=== PATIENT | male | born 1975 | race Caucasian/White ===

== ENCOUNTER 2021-07-28 08:00 | Outpatient (CLI) | payer MEDICAID, OTHER ==
--- NOTE | 2021-08-15 17:19 | XRAY Report ---
PROCEDURE: Knee 2 View RT INDICATIONS: R KNEE PX TECHNIQUE: 2 views of the right knee(s) were acquired. COMPARISON: None. FINDINGS: Bones: There is a proximal fibular neck fracture. No suspicious bony lesions. Medial compartment ost eophytes and moderate medial compartment joint space loss. Soft tissues: No joint effusion. No suspicious soft tissue calcifications. IMPRESSION: 1. Subtle proximal fibular neck fracture. 2. 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 Reviewed by: Fly Damico MD on 08/15/2021 5:17 PM PDT Approved by: Fly Damico MD on 08/15/2021 5:17 PM PDT Station ID: [id number]
== END 2021-07-28 23:59 | disposition home or self-care (01) ==
LOC: DI.N 08:00
PROVIDERS: ATTEND Nurse Practitioner
DX: S82.491A Other fracture of shaft of right fibula, initial encounter for closed fracture (principal); M17.11 Unilateral primary osteoarthritis, right knee

== ENCOUNTER 2021-08-19 21:34 | Emergency (ER) | payer OTHER, MEDICAID ==
[2021-08-19 21:45] VITALS: BP 150/90
--- NOTE | 2021-08-19 22:07 | XRAY Report ---
PROCEDURE: Tib/Fib RT INDICATIONS: Trauma TECHNIQUE: 2 views of the tibia and fibula were acquired. COMPARISON: Knee plain films, 08/15/2021 FINDINGS: Bones: There is a mildly displaced fracture of the fibular neck again seen. No additional fractures are seen. The talar dome demonstrates an unremarkable appearance. Mild to moderate degenerative changes are seen. Irregularity seen of the posterior calcaneus. The meme ntar Soft tissues: Calcification can be seen along the distal Achilles, with Achilles thickening. IMPRESSION: Mildly displaced fibular neck fracture again seen. Likely Achilles partial tear versus tendinopathy. If it would be helpful for clinical management deci yusef making, please consider a dedicated, scheduled ankle MRI for further evaluation (assuming that t here is no contraindication). Reviewed by: Fred Hammer MD on 08/19/2021 9:05 PM RHONDA Approved by: Fred Hammer MD on 08/19/2021 9:05 PM RHONDA Station ID: [id number]
--- NOTE | 2021-08-19 23:31 | ED Physician Documentation ---
PD HPI LOWER EXT INJURY - Stated complaint Stated Complaint: RT LEG PX/INJ - Chief complaint Chief Complaint: Trauma Ext - History obtained from History obtained from: Patient - History of Present Illness PD HPI LOW EXT INJURY LOCATION: Right, Lower leg Type of injury: Twist Where injury occurred: Home Timing - onset: Today Timing - details: Abrupt onset Worsened by: Moving, Palpating Associated symptoms: Swelling - Additional information Additional information: Patient sustained right proximal fibular fracture five days ago when he stepped into a hole on his [place], twisting the RLE (the hole was there for placement of a fencepost). The fracture was diagnosed by outpatient xrays. Today he again fell and is concerned he worsened or aggravated the same injury, as the pain has increased since he fell today. Review of Systems Skin: reports: Reviewed and negative Musculoskeletal: reports: Extremity pain (RLE at fibular head), Pain with weight bearing Neurologic: denies: Focal weakness, Numbness PD PAST MEDICAL HISTORY - Past Medical History Past Medical History: No - Present Medications Home Medications: Ambulatory Orders Medication Instructions Recorded Confirmed Oxycodone HCl/Acetaminophen 1 tab PO Q6HR PRN #14 tablet 08/19/21 [Oxycodone-Acetaminophn 7.5-325] - Allergies Allergies/Adverse Reactions: Allergies Allergy/AdvReac Type Severity Reaction Status Date / Time No Known Drug Allergies Allergy Verified 08/19/21 21:41 - Living Situation Living Situation: reports: With spouse/s.o. Living Arrangement: reports: At home PD ED PE NORMAL - Vitals Vital signs reviewed: Yes - General General: Alert and oriented X 3, No acute distress, Well developed/nourished PD ED PE EXPANDED - Extremities Extremities: Tenderness (right lower leg over fibular head), Swelling (right knee, proximal right lower leg). No: Deformity Results - Vitals Vitals: Oxygen O2 Source Room air - Rads (name of study) right tib/fib xrays Radiology: Prelim report reviewed, See rad report PD MEDICAL DECISION MAKING - ED course Complexity details: reviewed old records (previous xrays (08/15/21) were reviewed for comparitive purposes), reviewed results, considered differential, d/w patient ED course: No change compared to previous xrays; the proximal fibular fracture is noted without change and no evidence of new injury. The radiologist's interpretation includes mention of findings that suggest possible distal distal tendinopathy vs partial achilles tear. Patient says he has h/o injury to the right distal achilles, and there is no tenderness nor c/o in proximity to this xray finding; this is very likely a coincident finding, but I did d/w patient and advised him to mention this finding when he has (scheduled) upcoming orthopedic appointment. I am prescribing a short course of short-acting opioid pain medication for this patient. I have reviewed the patients CREATIVE STRATEGIST and no concerning findings were noted. I have discussed that the opioids are for short term therapy only, and will not be refilled from the ED Departure - Departure Disposition: Home, Self Care Clinical Impression: Closed right fibular fracture Qualifiers: Encounter type: subsequent encounter Fibula location: proximal Fracture morphology: unspecified fracture morphology Fracture healing: with routine healing Qualified Code(s): S82.831D - Other fracture of upper and lower end of right fibula, subsequent encounter for closed fracture with routine healing Condition: Good Instructions: ED Fx Lower Ext Prescriptions: Oxycodone HCl/Acetaminophen [Oxycodone-Acetaminophn 7.5-325] 1 tab PO Q6HR PRN #14 tablet PRN Reason: Pain Comments: As we discussed, tonight's xrays do not show any changes compared to the xrays performed 08/15/21. The radiologist also sees evidence of "likely Achilles partial tear versus tendinopathy". Continue to use the crutches to minimize weight-bearing as well as the knee immobilizer. A prescription for percocet has been electronically submitted to [facility] in [place]. I am prescribing a short course of narcotic pain medication for you. These are potentially dangerous and addictive medications that should be used carefully. These medications may constipate you. Take an [id number]-[id number] stool softener (docusate) twice daily with plenty of water while taking these medications. If you go 24 hours without a bowel movement, take [id number]-[id number]-[id number] miralax, per package instructions. Do not drink or drive while taking these medications. If you received narcotic or sedating medications while in the emergency department, do not drive for 24 hours. Store this medication in a safe, secure place and out of reach of children. It is a violation of federal law to give or sell this medication to another person or to use in a manner other than prescribed. The ED will not refill narcotic prescriptions, including prescriptions lost or stolen. To dispose of unwanted medications: 1. [facility] at [address] in [place] has a medication drop box. They accept prescription medications (in pill form) Sunday through Sunday 9:00 a.m. to 5:00 p.m. 2. The [facility] [place] [employer] accepts prescription medications (in pill form only) for disposal year round. Call for more information. 3. Contact the [facility] for the next [facility] sponsored prescription drug collection event. , [phone], or [phone]; Discharge Date/Time: 08/19/21 23:59
[2021-08-19] MEDS ORDERED: oxyCODONE 5 MG TABLET PO STA (23:41)
== END 2021-08-19 23:59 | disposition home or self-care (01) ==
LOC: ED 21:34
DX: S82.831D Other fracture of upper and lower end of right fibula, subsequent encounter for closed fracture with routine healing (principal); W17.2XXD Fall into hole, subsequent encounter
CPT/HCPCS: 99282; 99283

== ENCOUNTER 2021-08-26 08:00 | Outpatient (CLI) | payer OTHER, MEDICAID ==
--- NOTE | 2021-08-26 13:31 | XRAY Report ---
PROCEDURE: Tib/Fib RT INDICATIONS: FIBULA FX TECHNIQUE: 2 views of the tibia and fibula were acquired. COMPARISON: 08/19/2021 FINDINGS: Bones: Minimally displaced fracture of the fibular neck. No other suspicious bony lesions. Soft tissues: No suspicious soft tissue calcifications or masses. IMPRESSION: Minimally displaced fracture of the fibula neck with no change compared to prior x-ray. Reviewed by: Osmany Ag on 08/26/2021 1:30 PM PDT Approved by: Osmany Ag on 08/26/2021 1:30 PM PDT Station ID: [id number]
== END 2021-08-26 23:59 | disposition home or self-care (01) ==
LOC: DI.WOS 08:00
PROVIDERS: ATTEND Physician Assistant
DX: S89.201A Unspecified physeal fracture of upper end of right fibula, initial encounter for closed fracture (principal)

== ENCOUNTER 2021-09-10 05:17 | Outpatient (CLI) | payer OTHER, MEDICAID | END 2021-09-10 05:18 | disposition critical access hospital (66) | LOC: EMS 05:17 | DX: M54.50 Low back pain, unspecified (principal); M79.604 Pain in right leg | CPT/HCPCS: A0425; A0429 ==

== ENCOUNTER 2021-09-10 05:36 | Emergency (ER) | payer OTHER, MEDICAID ==
--- NOTE | 2021-09-10 05:53 | ED Physician Documentation ---
PD HPI BACK PAIN - Stated complaint Stated Complaint: BACK PX - Chief complaint Chief Complaint: Back Pain - History obtained from History obtained from: Patient, EMS - History of Present Illness Timing - onset: Today Timing - details: Gradual onset Pain level now: 8 Location: Lower, Right Quality: Pain, Spasm Associated symptoms: No: Fever, Weakness, Numbness, Incontinent of urine, Unable to urinate, Hematuria, Incontinent of stool Improves with: Nothing Worsened by: Movement Similar symptoms before: Diagnosis (sciatica) - Additional information Additional information: BIBA for sciatic back pain. Patient says he has had this before although this is more severe than usual. The pain is right low back and it radiates down the RLE, "shooting all the way down my leg" (per patient). Patient sustained injury to RLE last month with xray performed 08/15/21 showing "subtle proximal fibular neck fracture" (per radiologist's reading). He was subsequently evaluated in this ED (by me) for reinjury of the RLE, xrays did not show any significant change compared to previous xrays. I also note that patient had outpatient xrays again on 08/26/21 which again showed no significant change versus previous xrays (still noting minimally displaced fracture of the fibula neck). Review of Systems Constitutional: denies: Fever, Chills, Sweats Cardiac: reports: Reviewed and negative Respiratory: reports: Reviewed and negative GI: reports: Nausea. denies: Abdominal Pain, Vomiting : denies: Dysuria, Frequency, Unable to Void, Incontinent Skin: denies: Rash Musculoskeletal: reports: Back pain Neurologic: denies: Focal weakness, Numbness PD PAST MEDICAL HISTORY - Past Medical History Past Medical History: No - Past Surgical History Past Surgical History: Yes - Present Medications Home Medications: Ambulatory Orders Medication Instructions Recorded Confirmed Oxycodone HCl/Acetaminophen 1 tab PO Q6HR PRN #14 tablet 08/19/21 [Oxycodone-Acetaminophn 7.5-325] Pregabalin [Lyrica] 200 mg ORAL TID 09/10/21 09/10/21 - Allergies Allergies/Adverse Reactions: Allergies Allergy/AdvReac Type Severity Reaction Status Date / Time No Known Drug Allergies Allergy Verified 08/19/21 21:41 - Social History Does the pt smoke?: No Smoking Status: Never smoker Does the pt drink ETOH?: No Does the pt have substance abuse?: No - Immunizations Immunizations are current?: Yes - POLST Patient has POLST: No PD ED PE NORMAL - Vitals Vital signs reviewed: Yes - General General: Alert and oriented X 3, Well developed/nourished, Other (appears to be uncomfortable, in moderate painful distress) - Abdomen Abdomen: Soft, Non tender - Back Back: No CVA TTP, No spinal TTP - Derm Derm: Normal color, Warm and dry, No rash - Extremities Extremities: No edema Results - Vitals Vitals: Oxygen O2 Source Room air - Labs Labs: Laboratory Tests 09/10/21 09/10/21 09/10/21 09:55 09:55 10:01 WBC 11.2 H RBC 5.05 Hgb 12.9 L Hct 38.4 L MCV 76.0 L MCH 25.5 L MCHC 33.6 RDW 18.3 H Plt Count 521 H MPV 9.0 Neut # (Auto) 8.4 H Lymph # (Auto) 1.7 [place] # (Auto) 1.0 Eos # (Auto) 0.0 Baso # (Auto) 0.0 Absolute Nucleated RBC 0.00 Nucleated RBC % 0.0 Sodium 134 L Potassium 3.8 Chloride 94 L Carbon Dioxide 21 Anion Gap 19.0 H BUN 15 Creatinine 1.0 Estimated GFR (MDRD) 80 L Glucose 130 H Lactic Acid 2.8 H Calcium 9.2 Urine Color Urine Clarity Urine pH Ur Specific [place] Urine Protein Urine Glucose (UA) Urine Ketones Urine Occult Blood Urine Nitrite Urine Bilirubin Urine Urobilinogen Ur Leukocyte Esterase Urine RBC Urine WBC Ur Squamous Epith Cells Urine Bacteria Urine Mucus Ur Microscopic Review Urine Culture Comments 09/10/21 11:47 WBC RBC Hgb Hct MCV MCH MCHC RDW Plt Count MPV Neut # (Auto) Lymph # (Auto) [place] # (Auto) Eos # (Auto) Baso # (Auto) Absolute Nucleated RBC Nucleated RBC % Sodium Potassium Chloride Carbon Dioxide Anion Gap BUN Creatinine Estimated GFR (MDRD) Glucose Lactic Acid Calcium Urine Color DARK YELLOW Urine Clarity CLEAR Urine pH 6.0 Ur Specific [place] >=1.030 H Urine Protein 100 H Urine Glucose (UA) NEGATIVE Urine Ketones >=80 H Urine Occult Blood MODERATE H Urine Nitrite NEGATIVE Urine Bilirubin NEGATIVE Urine Urobilinogen 0.2 (NORMAL) Ur Leukocyte Esterase NEGATIVE Urine RBC 0-5 Urine WBC 0-3 Ur Squamous Epith Cells FEW Squamous Urine Bacteria Few Urine Mucus Moderate Strands Ur Microscopic Review INDICATED Urine Culture Comments NOT INDICATED PD MEDICAL DECISION MAKING - ED course Complexity details: reviewed old records, reviewed results, re-evaluated patient, considered differential, d/w patient ED course: given 2mg IM dilaudid and 5mg po flexeril for sciatica. Denies recent injury to back (had injury to RLE last month). On reevaluation, he says his pain is worse and thus I ordered another 2mg IM dilaudid as well as 5mg PO valium (for skeletal muscle relaxant properties). Care of patient turned over to oncoming ED physician pending reevaluation , can discharge when he is well enough to go home. Departure - Departure Disposition: 02 Transfer Acute Care Hosp Clinical Impression: Intractable low back pain Urinary incontinence Qualifiers: Urinary Incontinence type: unspecified incontinence Qualified Code(s): R32 - Unspecified urinary incontinence Condition: Stable Discharge Date/Time: 09/10/21 12:28
[2021-09-10] MEDS ORDERED: HYDROmorphone 1 MG/ML CARPUJECT IM STA ×2 (06:18→07:17)
[2021-09-10] MEDS ORDERED: CYCLOBENZAPRINE 10 MG TABLET PO STA (06:18)
[2021-09-10] MEDS ORDERED: diazePAM 5 MG TABLET PO STA (07:18)
[2021-09-10] MEDS ORDERED: KETOROLAC 60 MG/2 ML VIAL IM STA (07:18)
[2021-09-10] MEDS ORDERED: ONDANSETRON ODT 4 MG TABLET TL STA (07:46)
[2021-09-10] MEDS ORDERED: DEXAMETHASONE 10 MG/ML VIAL IVP STA (09:44)
[2021-09-10] MEDS ORDERED: HYDROmorphone 1 MG/ML CARPUJECT IVP STA ×2 (09:51→11:36)
[2021-09-10] MEDS ORDERED: SODIUM CHLORIDE 0.9% 500 ML IV STA (09:51)
--- NOTE | 2021-09-10 09:55 | ED Physician Documentation ---
ED Addendum - Addendum Addendum: 09/10/21 07:30 Pt care turned over to me from Dr. Mooney. History of chronic low back pain Has worsened since this morning. Dr. Mooney has given patient 2 rounds of IM medications. Patient did slide out of his bed which Dr. Mooney was aware of. No head injury or LOC. Patient is requesting an x-ray of his back as he has hardware in place. X-ray ordered. 09/10/21 09:52 Called to the bedside to evaluate the patient as he had an episode of urinary incontinence. Patient had gone to the bathroom about an hour ago. He was just laying in the bed and did not realize he had to urinate when he had urinated on himself. With Alfreda (RN) and Grupo (RN) as chaperones, I did a digital rectal exam. Patient had normal Rectal sensation and normal rectal tone. Pedal pulses are intact. Requested IV with labs and IV medications. MRI is not available this weekend. Patient has not had any recent injections into his back. He denies IV drug use, fevers, known cancer. He does report that the pain is more to the right side of his back and does shoot into the right leg. He does have a history of kidney stones. CT abdomen and pelvis without contrast ordered to evaluate for stones as cause of his pain. 09/10/21 1130: CT abdomen and pelvis is without acute findings. Reviewed lesions in liver requiring nonemergent follow up Patient understands. Discussed need for MRI Given continued pain and that patient will need transfer to another facility as we have no MRI until Sunday.Patient is agreeable to this. Pt continues to report continued pain which is not changed after multiple rounds of IM/IV Dilaudid. CT abdomen and pelvis is negative for ureter stone.Given episode of incontinence and intractable pain, do feel that MRI is warranted. Discussed with [facility] emergency physician, Dr. Villagomez who graciously agrees to accept the patient in transfer for MRI.Patient is agreeable to this plan. Departure - Departure Disposition: 02 Transfer Acute Care Hosp Clinical Impression: Intractable low back pain Urinary incontinence Qualifiers: Urinary Incontinence type: unspecified incontinence Qualified Code(s): R32 - Unspecified urinary incontinence Condition: Stable
--- NOTE | 2021-09-10 10:18 | XRAY Report ---
PROCEDURE: Lumbar Spine 2 View INDICATIONS: fall/low back pain/history of surg TECHNIQUE: 2 views of the lumbar spine were acquired. COMPARISON: None. FINDINGS: Bones: Wedge-shaped T12 compression fracture noted with 75% anterior height loss and no significant r etropulsed fracture fragment. Lower lumbar spine instrumentation includes rods and screw instrumentat ion supporting discectomy and fusion at L3-4, L4-5 and L5-S1. Soft tissues: Overlying bowel gas pattern is normal. No suspicious soft tissue calcifications. IMPRESSION: T12 compression fracture, uncertain age. Lower lumbar spine discectomy and fusion with instrumentation. No evidence of hardware failure or loo sening. Reviewed by: Jitendra Aden MD on 09/10/2021 9:17 AM RHONDA Approved by: Jitendra Aden MD on 09/10/2021 9:17 AM RHONDA Station ID: [id number]
[2021-09-10 10:19] LABS: BASOPHILS % (AUTO) 0.3 %; EOSINOPHILS % (AUTO) 0.1 %; HCT - HEMATOCRIT 38.4 % (42.0-52.0); HGB - HEMOGLOBIN 12.9 g/dL (14.0-18.0); LYMPHOCYTES # (AUTO) 1.7 10^3/uL (1.5-3.5); LYMPHOCYTES % (AUTO) 15.3 %; MEAN CORPUSCULAR HEMOGLOBIN 25.5 pg (27.0-31.0); MEAN CORPUSCULAR HGB CONC 33.6 g/dL (32.0-36.0); MONOCYTES % (AUTO) 8.8 %; NEUTROPHILS # (AUTO) 8.4 10^3/uL (1.5-6.6); NEUTROPHILS % (AUTO) 74.9 %; PLT - PLATELET COUNT 521 10^3/uL (130-450); RED BLOOD COUNT 5.05 10^6/uL (4.70-6.10); RED CELL DISTRIBUTION WIDTH 18.3 % (12.0-15.0); WHITE BLOOD COUNT 11.2 x10^3/uL (4.8-10.8)
[2021-09-10 10:26] LABS: CALCIUM 9.2 mg/dL (8.5-10.3); POTASSIUM 3.8 mmol/L (3.5-5.0)
--- NOTE | 2021-09-10 11:19 | CT Report ---
PROCEDURE: CT abdomen pelvis without contrast INDICATIONS: R sided back pain TECHNIQUE: Noncontrast 5 mm thick sections acquired from the diaphragms to the symphysis. 5 mm jonathan nal and sagittal reformats were then performed. For radiation dose reduction, the following was used : automated exposure control, adjustment of mA and/or kV according to patient size. COMPARISON: None. FINDINGS: Lower thorax: The lung bases are clear. Heart size normal. No hiatal hernia. Liver: Several low density hepatic lesions noted. The lesion in the left hepatic lobe measures 1.6 cm in diameter. Biliary system: Calculi noted layering dependently in the lumen of the gallbladder. No pericholecysti c inflammatory change present. Pancreas: Unremarkable without mass or inflammation evident. Spleen: Normal in size and density. Adrenals: Arising from the left adrenal gland, there is an 3.4 cm low-density nodule measuring 15 Aislinn nsfield units associated with a small focus of calcification which is well-defined. Reproductive system: Unremarkable as visualized. Urinary system: Normal renal size and attenuation. Nonobstructing subcentimeter right renal calculus present. No hydronephrosis bilaterally. Gastrointestinal system: Prior gastric surgery noted. No evidence of bowel obstruction. Appendix: No findings to suggest acute appendicitis. Peritoneal spaces: No mesenteric or retroperitoneal adenopathy. No free air. No free fluid. Vasculature: The IVC, aorta and iliac vasculature are unremarkable. Musculoskeletal: Lower lumbar spine decompressive laminectomy, posterior lateral and interbody fusion , and posterior jules and screw instrumentation in good position. Bilateral inguinal hernias containing fat without bowel involvement IMPRESSION: 1. No acute noncontrast CT findings in the abdomen and pelvis. 2. Low density lesions in the liver. While these possibly could reflect cysts or hemangioma, follow u p nonemergent hepatic protocol CT or MR could further evaluate. 3. Probable 3.4 cm left adrenal adenoma 4. Cholelithiasis without CT evidence of acute cholecystitis Reviewed by: Jitendra Aden MD on 09/10/2021 10:18 AM RHONDA Approved by: Jitendra Aden MD on 09/10/2021 10:18 AM RHONDA Station ID: [id number]
[2021-09-10 12:09] LABS: GLUCOSE, URINE (UA) NEGATIVE (NEGATIVE); KETONES,URINE (UA) >=80 mg/dL (NEGATIVE); LEUKOCYTE ESTERASE, URINE NEGATIVE (NEGATIVE); NITRITE,URINE NEGATIVE (NEGATIVE); OCCULT BLOOD,URINE MODERATE (NEGATIVE); PROTEIN,URINE 100 mg/dL (NEGATIVE); UROBILINOGEN,URINE 0.2 (NORMAL) E.U./dL (NORMAL)
[2021-09-10 12:10] LABS: CLARITY,URINE CLEAR (CLEAR)
[2021-09-10 12:14] LABS: BILIRUBIN,URINE NEGATIVE (NEGATIVE); ICTOTEST,URINE NEGATIVE
[2021-09-10 12:18] VITALS: BP 134/94
[2021-09-10 12:26] LABS: BACTERIA,URINE Few /HPF (None Seen); MUCUS,URINE Moderate Strands; RBC,URINE 0-5 /HPF (0-5); SQUAMOUS EPITHELIAL CELL,UR FEW Squamous (<= Few); WBC,URINE 0-3 /HPF (0-3)
== END 2021-09-10 12:28 | disposition short-term general hospital (02) ==
LOC: EDUNIT# → ED 05:36
DX: M54.50 Low back pain, unspecified (principal); R32 Unspecified urinary incontinence
CPT/HCPCS: 36415; 72100; 74176; 80048; 81001; 83605; 85025; 96372; 96374; 96375; 96376; 99283; 99285; A9270; J1170; Q0162; 81003; 87086

== ENCOUNTER 2021-09-10 12:22 | Outpatient (CLI) | payer OTHER, MEDICAID | END 2021-09-10 12:23 | disposition short-term general hospital (02) | LOC: EMS 12:22 | PROVIDERS: ATTEND Emergency Medicine | DX: M54.50 Low back pain, unspecified (principal) | CPT/HCPCS: A0425; A0428 ==

== ENCOUNTER 2022-01-31 17:31 | Emergency (ER) | payer OTHER, MEDICAID ==
[2022-01-31] MEDS ORDERED: KETOROLAC 60 MG/2 ML VIAL IM STA (21:18)
[2022-01-31] MEDS ORDERED: HYDROcod/ACETAM 5/325 MG TABLET PO STA (21:18)
[2022-01-31] MEDS ORDERED: CHERRY SYRUP 10 ML UDC PO ONE (21:19)
[2022-01-31] MEDS ORDERED: DEXAMETHASONE 10 MG/ML VIAL PO STA (21:19)
[2022-01-31] MEDS ORDERED: CYCLOBENZAPRINE 10 MG TABLET PO STA (21:19)
--- NOTE | 2022-01-31 21:19 | ED Physician Documentation ---
PD HPI BACK PAIN - Stated complaint Stated Complaint: LOWER BACK PAIN - Chief complaint Chief Complaint: Back Pain - History obtained from History obtained from: Patient - History of Present Illness Timing - onset: Today Timing - details: Gradual onset Pain level max: 5 Pain level now: 4 Quality: Pain, Spasm Associated symptoms: No: Fever, Weakness, Numbness, Incontinent of urine, Unable to urinate, Hematuria, Incontinent of stool Worsened by: Movement Contributing factors: Twisting. No: Lifting, Trauma, Anticoagulated, Cancer, IVDA - Additional information Additional information: 46-year-old male presents to the emergency department stating that he slipped in mud earlier today and "tweaked his back". He states he has a history of chronic back problems and sciatica. The pain is radiating down both legs. No loss of bowel or bladder control. No weakness, numbness. Worse with movement, better with rest. He states the muscle relaxants have helped in the past. Review of Systems Constitutional: denies: Fever, Chills Respiratory: denies: Cough GI: denies: Vomiting, Diarrhea Skin: denies: Rash Musculoskeletal: denies: Neck pain Neurologic: denies: Focal weakness, Numbness, Headache PD PAST MEDICAL HISTORY - Past Medical History Past Medical History: Yes Musculoskeletal: Chronic back pain - Past Surgical History Past Surgical History: Yes Ortho: Spine surgery - Present Medications Home Medications: Ambulatory Orders Medication Instructions Recorded Confirmed Oxycodone HCl/Acetaminophen 1 tab PO Q6HR PRN #14 tablet 08/19/21 [Oxycodone-Acetaminophn 7.5-325] Pregabalin [Lyrica] 200 mg ORAL TID 09/10/21 09/10/21 Cyclobenzaprine [Flexeril] 10 mg PO TID PRN #20 tablet 01/31/22 HYDROcod/ACETAM 5/325 [[place] 5/325] 1 - 2 ea PO Q6H PRN #14 tablet 01/31/22 Meloxicam [Mobic] 7.5 mg PO BID PRN #20 tablet 01/31/22 - Allergies Allergies/Adverse Reactions: Allergies Allergy/AdvReac Type Severity Reaction Status Date / Time No Known Drug Allergies Allergy Verified 01/31/22 18:08 - Social History Does the pt smoke?: No Smoking Status: Never smoker Does the pt drink ETOH?: No Does the pt have substance abuse?: No - Immunizations Immunizations are current?: Yes - POLST Patient has POLST: No PD ED PE NORMAL - Vitals Vital signs reviewed: Yes - General General: Alert and oriented X 3, No acute distress, Well developed/nourished - HEENT HEENT: PERRL, Moist mucous membranes - Neck Neck: Supple, no meningeal sign - Cardiac Cardiac: RRR, Strong equal pulses - Respiratory Respiratory: No respiratory distress, Clear bilaterally - Abdomen Abdomen: Normal bowel sounds, Soft, Non tender, Non distended - Back Back: No spinal TTP (No midline tenderness to palpation or percussion. No step- off or deformity. Mild paraspinal spasm bilateral lower lumbar) - Derm Derm: Warm and dry - Extremities Extremities: Other (Normal bilateral lower extremity patellar and ankle jerk reflexes. Normal great toe extension bilaterally. no saddle anesthesia) - Neuro Neuro: Alert and oriented X 3 - Psych Psych: Normal mood, Normal affect Results - Vitals Vitals: Oxygen O2 Source Room air PD MEDICAL DECISION MAKING - ED course Complexity details: re-evaluated patient, considered differential (No cauda equina, no spinal epidural abscess, no fracture, no aortic dissection or evidence of aneursym rupture), d/w patient, d/w family ED course: Patient with acute on chronic back pain. No indication for emergent imaging. No evidence of cauda equina, epidural abscess. Pain well controlled. Will place on muscle relaxants for home. We will have him follow-up with his doctor for further care. Ambulating well. Patient counseled regarding signs and symptoms for which I believe and urgent re-evaluation would be necessary. Patient with good understanding of and agreement to plan and is comfortable going home at this time This document was made in part using voice recognition software. While efforts are made to proofread this document, sound alike and grammatical errors may occur. Departure - Departure Disposition: 01 Home, Self Care Clinical Impression: Sciatica Qualifiers: Laterality: bilateral Qualified Code(s): M54.31 - Sciatica, right side Condition: Good Instructions: ED Sciatica Follow-Up: your,doctor in 1 week [Other] Prescriptions: Cyclobenzaprine [Flexeril] 10 mg PO TID PRN #20 tablet PRN Reason: Spasms Meloxicam [Mobic] 7.5 mg PO BID PRN #20 tablet PRN Reason: Pain HYDROcod/ACETAM 5/325 [[place] 5/325] 1 - 2 ea PO Q6H PRN #14 tablet PRN Reason: Pain Comments: Your prescriptions were sent to [facility] in [place]. Please follow-up with your doctor for further care. Please return if you worsen. I am prescribing a short course of narcotic pain medication for you. These are potentially dangerous and addictive medications that should be used carefully. These medications may constipate you. Take an fzun-rnt-dhovgzj stool softener (docusate) twice daily with plenty of water while taking these medications. If you go 24 hours without a bowel movement, take aovq-xlo-gsrgwxr miralax, per package instructions. Do not drink or drive while taking these medications. If you received narcotic or sedating medications while in the emergency department, do not drive for 24 hours. Store this medication in a safe, secure place and out of reach of children. It is a violation of federal law to give or sell this medication to another person or to use in a manner other than prescribed. The ED will not refill narcotic prescriptions, including prescriptions lost or stolen. To dispose of unwanted medications: 1. [facility] [address] in [place] has a medication drop box. They accept prescription medications (in pill form) Sunday through Sunday 9:00 a.m. to 5:00 p.m. 2. The [facility] [employer] [facility] accepts prescription medications (in pill form only) for disposal year round. Call for more information. 3. Contact the [facility] for the next [facility] sponsored prescription drug collection event. , [phone], or [phone]; Discharge Date/Time: 01/31/22 22:16
[2022-01-31 22:17] VITALS: BP 133/97
== END 2022-01-31 22:16 | disposition home or self-care (01) ==
LOC: ED 17:31
DX: M54.41 Lumbago with sciatica, right side (principal)
CPT/HCPCS: 96372; 99283; 99284; A9270

== ENCOUNTER 2022-03-05 23:05 | Outpatient (CLI) | payer OTHER, MEDICAID | END 2022-03-05 23:06 | disposition critical access hospital (66) | LOC: EMS 23:05 | DX: M54.9 Dorsalgia, unspecified (principal); M79.605 Pain in left leg; M79.604 Pain in right leg; R25.2 Cramp and spasm | CPT/HCPCS: A0425; A0429 ==

== ENCOUNTER 2022-03-05 23:30 | Emergency (ER) | payer OTHER, MEDICAID ==
[2022-03-05] MEDS ORDERED: methocarbamoL 500 MG TABLET PO STA (23:54)
[2022-03-05] MEDS ORDERED: HYDROmorphone 1 MG/ML CARPUJECT IM STA (23:54)
--- NOTE | 2022-03-06 00:03 | ED Physician Documentation ---
History of Present Illness - Stated complaint Stated Complaint: BACK SPASMS - Chief complaint Chief Complaint: Back Pain - History obtained from History obtained from: Patient, EMS - Additonal information Additional information: 46yM with chronic back pain p/w back spasm this evening. Patient states he has been physically active and "overdid it". He experienced sudden onset spasm this evening in left lower back, fell to the floor, and was unable to get up the four stairs to his house so called ems. pain is sharp, located in the lower back and left buttock, radiating down the leg. denies numbness or weakness, but can't walk due to the pain. denies saddle anesthesia or urinary/fecal incontinence. note he had MRI in august to eval for cord compression that was negative but did show disc herniation. Review of Systems : denies: Incontinent Musculoskeletal: reports: Back pain Neurologic: denies: Focal weakness, Numbness PD PAST MEDICAL HISTORY - Past Medical History Past Medical History: Yes Musculoskeletal: Chronic back pain - Past Surgical History Past Surgical History: Yes General: Gastric surgery Ortho: Spine surgery, Other - Present Medications Home Medications: Ambulatory Orders Medication Instructions Recorded Confirmed Pregabalin [Lyrica] 200 mg ORAL TID 09/10/21 03/05/22 Acetaminophen [Tylenol] 1,000 mg PO Q8HR PRN 03/05/22 03/05/22 - Allergies Allergies/Adverse Reactions: Allergies Allergy/AdvReac Type Severity Reaction Status Date / Time No Known Drug Allergies Allergy Verified 03/05/22 23:37 - Social History Does the pt smoke?: No Smoking Status: Never smoker Does the pt drink ETOH?: No Does the pt have substance abuse?: No - Immunizations Immunizations are current?: Yes - POLST Patient has POLST: No PD ED PE NORMAL - Vitals Vital signs reviewed: Yes - General General: Alert and oriented X 3, No acute distress, Well developed/nourished - HEENT HEENT: Atraumatic, PERRL, EOMI - Neck Neck: No bony TTP - Back Back: No spinal TTP, Other (L gluteal region ttp) - Derm Derm: Normal color, Warm and dry, No rash Results - Vitals Vitals: Vital Signs - 24 hr 03/05/22 23:40 Temperature 36.8 C Heart Rate 96 Respiratory 16 Rate Blood Pressure 126/102 H O2 Saturation 98 Oxygen O2 Source Room air PD Medical Decision Making - ED course ED course: 46yM p/w acute on chronic low back pain that appears muscular in origin on exam. sciatica is less likely given he is not experiencing the tingling/jolt/electric sensation. doubt cord compression or epidural abscess given low risk factors. plan to treat symptomatically. discussed symptomatic care at home. plan to f/u with orthopedist and pcp for pain management. return precautions given.
[2022-03-06 00:42] VITALS: BP 116/84
== END 2022-03-06 00:58 | disposition home or self-care (01) ==
LOC: EDUNIT# → ED 23:30
DX: M54.50 Low back pain, unspecified (principal); G89.29 Other chronic pain
CPT/HCPCS: 99281; 99283; A9270; J1170

== ENCOUNTER 2022-06-04 20:00 | Outpatient (CLI) | payer OTHER, MEDICAID | END 2022-06-04 20:01 | disposition short-term general hospital (02) | LOC: EMS 20:00 | DX: M54.9 Dorsalgia, unspecified (principal); R25.2 Cramp and spasm; R53.1 Weakness | CPT/HCPCS: A0425; A0429 ==

== ENCOUNTER 2022-07-19 17:14 | Emergency (ER) | payer OTHER, MEDICAID ==
[2022-07-19 17:23] VITALS: BP 122/90
--- NOTE | 2022-07-19 17:31 | ED Physician Documentation ---
PD HPI BACK PAIN - Stated complaint Stated Complaint: BACK PX - Chief complaint Chief Complaint: Back Pain - History obtained from History obtained from: Patient - Additional information Additional information: 47-year-old gentleman with chronic back pain, has been worse over the last 2 months, has had an MRI and has an appointment for surgical intervention in about a month and a half. He presents requesting pain medication as his pain is out of control. Its in the mid to low lumbar spine with numbness in the left foot. He has a chronic foot drop in the left foot. There is no incontinence or saddle anesthesia. No fevers. PD PAST MEDICAL HISTORY - Past Medical History Musculoskeletal: Chronic back pain - Past Surgical History Past Surgical History: Yes General: Gastric surgery Ortho: Spine surgery, Other - Present Medications Home Medications: Ambulatory Orders Medication Instructions Recorded Confirmed Pregabalin [Lyrica] 200 mg ORAL TID 09/10/21 03/05/22 Acetaminophen [Tylenol] 1,000 mg PO Q8HR PRN 03/05/22 03/05/22 - Allergies Allergies/Adverse Reactions: Allergies Allergy/AdvReac Type Severity Reaction Status Date / Time No Known Drug Allergies Allergy Verified 07/19/22 17:22 - Social History Does the pt smoke?: No Smoking Status: Never smoker Does the pt drink ETOH?: No Does the pt have substance abuse?: No - Immunizations Immunizations are current?: Yes - POLST Patient has POLST: No PD ED PE NORMAL - Vitals Vital signs reviewed: Yes - General General: Alert and oriented X 3, No acute distress - Derm Derm: Normal color, Warm and dry - Extremities Extremities: Other (Patellar reflexes not checked as he has a right knee replacement. He has grossly normal sensation throughout the lower extremities. Grossly normal gait.) - Neuro Neuro: Alert and oriented X 3, Normal speech - Psych Psych: Normal mood, Normal affect Results - Vitals Vitals: Vital Signs - 24 hr 07/19/22 17:17 Temperature 36.1 C L Heart Rate 73 Respiratory 17 Rate Blood Pressure 122/90 H O2 Saturation 100 Oxygen O2 Source Room air PD Medical Decision Making - ED course ED course: 47-year-old gentleman with an exacerbation of chronic low back pain. Asked him when his last prescription was for narcotics, this was after reviewing his [employer] and [employer] forms. He said it had been a couple of weeks. I showed him his [employer] and [employer] forms. His last prescription for oxycodone was from Dr. Wright at [facility] 4 days ago. He had 16 emergency department visits in the last 12 months, a total of 1457 controlled substances in that timeframe from 19 unique prescribers and 21 opioid prescriptions. I discussed with him that [employer] bill the fact that he lied to me when his last prescription was in this pattern we would not be able to help him with pain management and he is seeing his primary care physician tomorrow. He appears comfortable. There is nothing in the history or physical to suggest cauda equina, spinal epidural abscess, vascular issue. Departure - Departure Disposition: 01 Home, Self Care Clinical Impression: Acute exacerbation of chronic low back pain Condition: Good Record reviewed to determine appropriate education?: Yes Instructions: ED Neck Back Pain General Comments: Follow-up with your primary care tomorrow as scheduled for pain management. Unfortunately, as discussed based on your frequent emergency department use, 16 visits in the last 12 months, the fact that I asked you when your last prescrip tion for narcotics was and you told me it had been 2 weeks, it has been 4 days since your last prescription from [facility] was filled for oxycodone, and concern for multi prescriber and frequent narcotic fills including a total of 1457 controlled substances in the last 12 months from 19 unique prescribers, this emergency department cannot help you with pain management.
--- OUTSIDE RECORDS SUMMARY | 2022-07-19 17:43 | EXTERNAL MEDICAL SUMMARY RPT | Continuity of Care Document ---
Author Name Unknown Address [address] [place] [address] Phone Organization [facility] Address [address] [place] [address] Phone Care Team Providers Care Framing Inspector Name Role Phone Alexander Bolivar Unavailable Unavailable Allergies and Intolerances date description facility type (no date) Mild [facility] (unknown) (no date) No Known Drug Allergies [facility] ( unknown) (no date) milk [facility] (unknown) Medications date description facility 2022-06-07 00:00 Oxycodone-Acetaminophen [facility] 2022-07-06 00:00 Oxycodone-Acetaminophen [facility] 2022-06-29 00:00 Oxycodone [facility] 2022-07-15 00:00 Oxycodone [facility] 2022-06-07 00:00 Lidocaine [facility] 2022-06-14 00:00 Lidocaine [facility] 2022-06-07 00:00 Methocarbamol [facility] 2022-07-03 00:00 Ferrous Sulfate [facility] 2022-06-07 00:00 Prednisone [facility] 2022-07-03 00:00 Tizanidine [facility] 2022-06-14 00:00 Duloxetine [facility] 2022-05-27 00:00 [facility]isolone [facility] 2022-06-04 00:00 Methylprednisolone [facility] 2022-07-15 00:00 [facility]prednisolone [facility] 2022-06-14 00:00 Tramadol [facility] 2022-07-03 00:00 Tramadol [facility] 2022-05-27 00:00 Hydrocodone-Acetaminophen [facility] 2022-06-04 00:00 Hydrocodone-Acetaminophen [facility] Problems date description facility 2022-05-27 00:00 Acute back pain with radiculopa thy [facility] 2022-06-04 00:00 Strain of lumbar region [facility] 2022-06-07 00:00 Central stenosis of spinal bijal l [facility] 2022-06-07 00:00 Degeneration of intervertebral disc of lumbar region [facility] 2022-06-07 00:00 Lumbar [facility] pain [facility] 2022-06-14 00:00 Lumbar radiculopathy [facility] 2022-06-22 11:17 Radiculopathy, lumbar region Is [facility] 2022-06-22 11:25 Radiculopathy, lumbar region Is [facility] 2022-07-03 00:00 Fusion of lumbar spine [facility] 2022-07-03 00:00 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 [facility] 2022-07-03 00:00 Chronic low back pain [facility] 2022-07-15 00:00 Lumbar back pain wit h radiculopathy affecting lower extremity [facility] Procedures date description facility 2022-06-04 00:00 XR lumbar spine and sacrum, 3 v iews [facility] 2022-06-07 00:00 MRI of lumbar spine without con [facility] 2022-06-28 00:00 MRI of lumbar spine without con [facility] Results/Labs test date author facility value unit interpretation Result panel 1 (unknown) (no date) (unknown) (unknown) (no value) (units unknown) (unknown) (unknown) (no date) (unknown) (unknown) 05/27/22 (units unknown) (unknown) (unknown) (no date) (unknown) (unknown) 20 mg PO TID Q ty: 21 0RF (units unknown) (unknown) (unknown) (no date) (unknown) (unknown) 22:00 (units unknown) (unknown) (unknown) (no date) (unknown) (unknown) 5 mg PO Q6H OR N (Reason: pain) Qty: 14 0RF (units unknown) (unknown) (unknown) (no date) (unknown) (unknown) 990 (units unknown) (unknown) (unknown) (no date) (unknown) (unknown) Age/Sex: 47 / M (uni ts unknown) (unknown) (unknown) (no date) (unknown) (unknown) Allergies (units unknown) (unknown) (unknown) (no date) (unknown) (unknown) Allergy/AdvRea c Type Severity Reaction Status Date / Time (units unknown) (unknown) (unknown) (no date) (unknown) (unknown) Blood Pressure 150/105 H 05/27/22 22:00 (units unknown) (unknown) (unknown) (no date) (unknown) (unknown) Blood Pressure 150/105 H (units unknown) (unknown) (unknown) (no date) (unknown) (unknown) Chief Complain t: Back Pain/Injury (units unknown) (unknown) (unknown) (no date) (unknown) (unknown) Course (units unknown) (unknown) (unknown) (no date) (unknown) (unknown) : 5 Acct:[id number] (units unknown) (unknown) (unknown) (no date) (unknown) (unknown) Date of Servic e: 05/27/22 (units unknown) (unknown) (unknown) (no date) (unknown) (unknown) Departure (units unknown) (unknown) (unknown) (no date) (unknown) (unknown) Discharge Plan (unit s unknown) (unknown) (unknown) (no date) (unknown) (unknown) ER Physician: Jesus Wright D.O. (units unknown) (unknown) (unknown) (no date) (unknown) (unknown) Emergency Report (un its unknown) (unknown) (unknown) (no date) (unknown) (unknown) Exam (units unknown) (unknown) (unknown) (no date) (unknown) (unknown) General (units unknown) (unknown) (unknown) (no date) (unknown) (unknown) HPI - Back Pain/Inju ry (units unknown) (unknown) (unknown) (no date) (unknown) (unknown) Initial Vital Signs (units unknown) (unknown) (unknown) (no date) (unknown) (unknown) Initial Vital Signs: (units unknown) (unknown) (unknown) (no date) (unknown) (unknown) [address] [address] (units unknown) (unknown) (unknown) (no date) (unknown) (unknown) Medication Instructions Recorded (units unknown) (unknown) (unknown) (no date) (unknown) (unknown) No Action (units unknown) (unknown) (unknown) (no date) (unknown) (unknown) No Known Drug Allergies Allergy Verified 09/10/21 16:42 (units unknown) (unknown) (unknown) (no date) (unknown) (unknown) Oxygen Deliver y Method Room Air 05/27/22 22:00 (units unknown) (unknown) (unknown) (no date) (unknown) (unknown) Oxygen Deliver y Method Room Air (units unknown) (unknown) (unknown) (no date) (unknown) (unknown) Patient History (uni ts unknown) (unknown) (unknown) (no date) (unknown) (unknown) Patient: Kishor Carrasquillo MR#: [id number] (units unknown) (unknown) (unknown) (no date) (unknown) (unknown) Prescriptions: (unit s unknown) (unknown) (unknown) (no date) (unknown) (unknown) Previous Rx's (units unknown) (unknown) (unknown) (no date) (unknown) (unknown) Pulse Oximetry 98 05/27/22 22:00 (units unknown) (unknown) (unknown) (no date) (unknown) (unknown) Pulse Oximetry 98 (u nits unknown) (unknown) (unknown) (no date) (unknown) (unknown) Pulse Rate 83 05/27/22 22:00 (units unknown) (unknown) (unknown) (no date) (unknown) (unknown) Pulse Rate 83 (units unknown) (unknown) (unknown) (no date) (unknown) (unknown) Related Data (units unknown) (unknown) (unknown) (no date) (unknown) (unknown) Respiratory Ra te 18 05/27/22 22:00 (units unknown) (unknown) (unknown) (no date) (unknown) (unknown) Respiratory Rate 18 (units unknown) (unknown) (unknown) (no date) (unknown) (unknown) Signed By: (units unknown) (unknown) (unknown) (no date) (unknown) (unknown) Smoking Status : Never smoker (units unknown) (unknown) (unknown) (no date) (unknown) (unknown) Social History (units unknown) (unknown) (unknown) (no date) (unknown) (unknown) Source: patient (uni ts unknown) (unknown) (unknown) (no date) (unknown) (unknown) Stated Complai nt: back pain (units unknown) (unknown) (unknown) (no date) (unknown) (unknown) Substance Use Type: does not use (units unknown) (unknown) (unknown) (no date) (unknown) (unknown) Temperature 98 .1 F 05/27/22 22:00 (units unknown) (unknown) (unknown) (no date) (unknown) (unknown) Temperature 98.1 F ( units unknown) (unknown) (unknown) (no date) (unknown) (unknown) Time Seen by Wesley gann: 05/27/22 21:56 (units unknown) (unknown) (unknown) (no date) (unknown) (unknown) Vital Signs - 8 hr ( units unknown) (unknown) (unknown) (no date) (unknown) (unknown) Vital Signs (units unknown) (unknown) (unknown) (no date) (unknown) (unknown) Vital signs: (units unknown) (unknown) (unknown) (no date) (unknown) (unknown) baclofen 20 mg tablet 20 mg PO TID #21 tabs 09/10/21 (units unknown) (unknown) (unknown) (no date) (unknown) (unknown) baclofen 20 mg table t (units unknown) (unknown) (unknown) (no date) (unknown) (unknown) oxycodone 5 mg tablet 5 mg PO Q6H PRN pain #14 tabs 03/09/22 (units unknown) (unknown) (unknown) (no date) (unknown) (unknown) oxycodone 5 mg table t (units unknown) (unknown) Result panel 2 (unknown) (no date) (unknown) (unknown) (no value) (units unknown) (unknown) (unknown) (no date) (unknown) (unknown) <Electronicall y signed by Jesus Wright D.O.> (units unknown) (unknown) (unknown) (no date) (unknown) (unknown) *If you do not have a primary care provider please contact the [facility] (units unknown) (unknown) (unknown) (no date) (unknown) (unknown) *Please contin ue to take your regular medications as directed. (units unknown) (unknown) (unknown) (no date) (unknown) (unknown) *Please follow up with your primary care provider in 2-3 days, call for an (units unknown) (unknown) (unknown) (no date) (unknown) (unknown) *Return to [facility] rgency Department if you should have any new, worsening or (units unknown) (unknown) (unknown) (no date) (unknown) (unknown) *What to do: (units unknown) (unknown) (unknown) (no date) (unknown) (unknown) *You have been diagnosed with [lumbar radiculopathy. As we discussed your (units unknown) (unknown) (unknown) (no date) (unknown) (unknown) 05/27/22 (units unknown) (unknown) (unknown) (no date) (unknown) (unknown) 05/28/22 0455 (units unknown) (unknown) (unknown) (no date) (unknown) (unknown) 1 tab PO Q4-6H PRN (Reason: pain) Qty: 20 0RF (units unknown) (unknown) (unknown) (no date) (unknown) (unknown) 12 point revie w of systems is negative except for those stated above (units unknown) (unknown) (unknown) (no date) (unknown) (unknown) 20 mg PO TID Q ty: 21 0RF (units unknown) (unknown) (unknown) (no date) (unknown) (unknown) 22:00 05/27/22 (unit s unknown) (unknown) (unknown) (no date) (unknown) (unknown) 22:31 05/27/22 (unit s unknown) (unknown) (unknown) (no date) (unknown) (unknown) 23:00 05/27/22 (unit s unknown) (unknown) (unknown) (no date) (unknown) (unknown) 23:00 (units unknown) (unknown) (unknown) (no date) (unknown) (unknown) 23:30 05/27/22 (unit s unknown) (unknown) (unknown) (no date) (unknown) (unknown) 23:30 (units unknown) (unknown) (unknown) (no date) (unknown) (unknown) 47-year-old ma nathan nonsmoker with longstanding history of back problems, prior (units unknown) (unknown) (unknown) (no date) (unknown) (unknown) 5 mg PO Q6H OR N (Reason: pain) Qty: 14 0RF (units unknown) (unknown) (unknown) (no date) (unknown) (unknown) 990 (units unknown) (unknown) (unknown) (no date) (unknown) (unknown) Activity Restrictions/Additiona l Instructions: (units unknown) (unknown) (unknown) (no date) (unknown) (unknown) Acute back [place] with radiculopathy (units unknown) (unknown) (unknown) (no date) (unknown) (unknown) Additionally, you cannot sign legal documents or perform any duties such as (units unknown) (unknown) (unknown) (no date) (unknown) (unknown) Age/Sex: 47 / M (uni ts unknown) (unknown) (unknown) (no date) (unknown) (unknown) Allergies (units unknown) (unknown) (unknown) (no date) (unknown) (unknown) Allergy/AdvRea c Type Severity Reaction Status Date / Time (units unknown) (unknown) (unknown) (no date) (unknown) (unknown) BACK: Back ten kael but free of any obvious external abnormalities. Patient exam (units unknown) (unknown) (unknown) (no date) (unknown) (unknown) Pardeep Umana DO [Physician] (units unknown) (unknown) (unknown) (no date) (unknown) (unknown) Blood Pressure 140/94 H (units unknown) (unknown) (unknown) (no date) (unknown) (unknown) Blood Pressure 150/105 H 05/27/22 22:00 (units unknown) (unknown) (unknown) (no date) (unknown) (unknown) Blood Pressure 150/105 H 143/96 H 129/91 H (units unknown) (unknown) (unknown) (no date) (unknown) (unknown) CARDIOVASCULAR : Denies chest pain, palpitations, orthopnea, edema, (units unknown) (unknown) (unknown) (no date) (unknown) (unknown) CARDIOVASCULAR : Regular rate and rhythm without murmurs, gallops, or rubs. (units unknown) (unknown) (unknown) (no date) (unknown) (unknown) CC: 47-year-ol d male with longstanding history of back pain (units unknown) (unknown) (unknown) (no date) (unknown) (unknown) Chief Complain t: Back Pain/Injury (units unknown) (unknown) (unknown) (no date) (unknown) (unknown) Clinical Impression: (units unknown) (unknown) (unknown) (no date) (unknown) (unknown) Complicating co-morbidities: (units unknown) (unknown) (unknown) (no date) (unknown) (unknown) Course (units unknown) (unknown) (unknown) (no date) (unknown) (unknown) : 5 Acct:[id number] (units unknown) (unknown) (unknown) (no date) (unknown) (unknown) Data collected from: Patient (units unknown) (unknown) (unknown) (no date) (unknown) (unknown) Date of Servic e: 05/27/22 (units unknown) (unknown) (unknown) (no date) (unknown) (unknown) Departure (units unknown) (unknown) (unknown) (no date) (unknown) (unknown) Differential considered, but not limited to: Lumbar radiculopathy, cauda (units unknown) (unknown) (unknown) (no date) (unknown) (unknown) Discharge Plan (unit s unknown) (unknown) (unknown) (no date) (unknown) (unknown) Discontinued Medications (units unknown) (unknown) (unknown) (no date) (unknown) (unknown) Discussion: Clinton kramer with chronic back pain presents with worsening of symptoms (units unknown) (unknown) (unknown) (no date) (unknown) (unknown) Disposition: s ee below, along with detailed discharge instructions that have (units unknown) (unknown) (unknown) (no date) (unknown) (unknown) Documented By: SB (u nits unknown) (unknown) (unknown) (no date) (unknown) (unknown) ENT: Nose with out bleeding, purulent drainage. Throat without erythema, (units unknown) (unknown) (unknown) (no date) (unknown) (unknown) ER Physician: Jesus Wright D.O. (units unknown) (unknown) (unknown) (no date) (unknown) (unknown) EXTREMITIES: N o edema or joint tenderness. (units unknown) (unknown) (unknown) (no date) (unknown) (unknown) EYES: Pupils e qual round and reactive. Extraocular motions intact. No scleral (units unknown) (unknown) (unknown) (no date) (unknown) (unknown) Emergency Report (un its unknown) (unknown) (unknown) (no date) (unknown) (unknown) Exam Narrative: (uni ts unknown) (unknown) (unknown) (no date) (unknown) (unknown) Exam documente d above, pertinent findings include: No saddle anesthesia, 5/5 (units unknown) (unknown) (unknown) (no date) (unknown) (unknown) Exam (units unknown) (unknown) (unknown) (no date) (unknown) (unknown) GASTROINTESTIN AL: Abdomen soft, non-tender, nondistended. (units unknown) (unknown) (unknown) (no date) (unknown) (unknown) GASTROINTESTIN AL: Denies nausea, vomiting, abdominal pain, diarrhea, (units unknown) (unknown) (unknown) (no date) (unknown) (unknown) GENERAL: Denie s chills, fatigue, malaise, fever, sweats. (units unknown) (unknown) (unknown) (no date) (unknown) (unknown) GENERAL: [47] year old patient appears stated age. Well-developed patient, in (units unknown) (unknown) (unknown) (no date) (unknown) (unknown) : Denies dys uria, frequency, incontinence, hematuria, urinary retention. (units unknown) (unknown) (unknown) (no date) (unknown) (unknown) General (units unknown) (unknown) (unknown) (no date) (unknown) (unknown) HEAD: Atraumat ic. Normocephalic. (units unknown) (unknown) (unknown) (no date) (unknown) (unknown) HEENT: Denies sinus pain, ear pain, sore throat, difficulty swallowing, (units unknown) (unknown) (unknown) (no date) (unknown) (unknown) HPI - Back Pain/Inju ry (units unknown) (unknown) (unknown) (no date) (unknown) (unknown) HPI Narrative: (unit s unknown) (unknown) (unknown) (no date) (unknown) (unknown) He denies any significant or specific traumatic injury (units unknown) (unknown) (unknown) (no date) (unknown) (unknown) History of Pre sent Illness (units unknown) (unknown) (unknown) (no date) (unknown) (unknown) Hydrocodone Bitart/Acetaminophen (Hydrocodone/Acet 5/325 Prepack) 1 bottle MISC (units unknown) (unknown) (unknown) (no date) (unknown) (unknown) Hydromorphone HCl (Hydromorphone 1 Mg Inj) 1 mg IM NOW ONE (units unknown) (unknown) (unknown) (no date) (unknown) (unknown) Initial Vital Signs (units unknown) (unknown) (unknown) (no date) (unknown) (unknown) Initial Vital Signs: (units unknown) (unknown) (unknown) (no date) (unknown) (unknown) Instructions: DI for Lumbar Radiculopathy (units unknown) (unknown) (unknown) (no date) (unknown) (unknown) [address] [address] (units unknown) (unknown) (unknown) (no date) (unknown) (unknown) Ketorolac Trom ethamine (Ketorolac 30 Mg/Ml Vial) 30 mg IM NOW ONE (units unknown) (unknown) (unknown) (no date) (unknown) (unknown) Last Admin: 23:24 Dose: 1 bottle (units unknown) (unknown) (unknown) (no date) (unknown) (unknown) Last Admin: 23:24 Dose: 1 mg (units unknown) (unknown) (unknown) (no date) (unknown) (unknown) Last Admin: 23:25 Dose: 30 mg (units unknown) (unknown) (unknown) (no date) (unknown) (unknown) Last Admin: 23:25 Dose: 40 mg (units unknown) (unknown) (unknown) (no date) (unknown) (unknown) MDM - Back Pain/Inju ry (units unknown) (unknown) (unknown) (no date) (unknown) (unknown) MDM Narrative (units unknown) (unknown) (unknown) (no date) (unknown) (unknown) MUSCULOSKELETA L: See HPI (units unknown) (unknown) (unknown) (no date) (unknown) (unknown) Medical decisi on making narrative: (units unknown) (unknown) (unknown) (no date) (unknown) (unknown) Medical record s reviewed: Prior notes reviewed in our EMR (units unknown) (unknown) (unknown) (no date) (unknown) (unknown) Medication Instructions Recorded (units unknown) (unknown) (unknown) (no date) (unknown) (unknown) NECK: Trachea midline. Non tender (units unknown) (unknown) (unknown) (no date) (unknown) (unknown) NEURO: AOx3. (units unknown) (unknown) (unknown) (no date) (unknown) (unknown) NEUROLOGIC: See HPI (units unknown) (unknown) (unknown) (no date) (unknown) (unknown) Narrative (units unknown) (unknown) (unknown) (no date) (unknown) (unknown) Narrative: (units unknown) (unknown) (unknown) (no date) (unknown) (unknown) New (units unknown) (unknown) (unknown) (no date) (unknown) (unknown) No Action (units unknown) (unknown) (unknown) (no date) (unknown) (unknown) No Known Drug Allergies Allergy Verified 09/10/21 16:42 (units unknown) (unknown) (unknown) (no date) (unknown) (unknown) Ordered: (units unknown) (unknown) (unknown) (no date) (unknown) (unknown) Orders (units unknown) (unknown) (unknown) (no date) (unknown) (unknown) Oxygen Deliver y Method Room Air 05/27/22 22:00 (units unknown) (unknown) (unknown) (no date) (unknown) (unknown) Oxygen Deliver y Method Room Air (units unknown) (unknown) (unknown) (no date) (unknown) (unknown) Oxygen Delivery Meth od (units unknown) (unknown) (unknown) (no date) (unknown) (unknown) PSYCHIATRIC: N o concerning psychosocial issues. (units unknown) (unknown) (unknown) (no date) (unknown) (unknown) Patient Dispos ition: Home (units unknown) (unknown) (unknown) (no date) (unknown) (unknown) Patient History (uni ts unknown) (unknown) (unknown) (no date) (unknown) (unknown) Patient: Kishor Carrasquillo MR#: [id number] (units unknown) (unknown) (unknown) (no date) (unknown) (unknown) Please underst and that we cannot provide further refills of narcotics or (units unknown) (unknown) (unknown) (no date) (unknown) (unknown) Prednisone (Pr ednisone 20 Mg Tablet) 40 mg PO NOW ONE (units unknown) (unknown) (unknown) (no date) (unknown) (unknown) Prescriptions: (unit s unknown) (unknown) (unknown) (no date) (unknown) (unknown) Previous Rx's (units unknown) (unknown) (unknown) (no date) (unknown) (unknown) Pulse Oximetry 100 1 00 (units unknown) (unknown) (unknown) (no date) (unknown) (unknown) Pulse Oximetry 98 05/27/22 22:00 (units unknown) (unknown) (unknown) (no date) (unknown) (unknown) Pulse Oximetry 98 10 0 (units unknown) (unknown) (unknown) (no date) (unknown) (unknown) Pulse Rate 69 67 (un its unknown) (unknown) (unknown) (no date) (unknown) (unknown) Pulse Rate 83 05/27/22 22:00 (units unknown) (unknown) (unknown) (no date) (unknown) (unknown) Pulse Rate 83 64 (un its unknown) (unknown) (unknown) (no date) (unknown) (unknown) RESPIRATORY: C lear to auscultation. Breath sounds equal bilaterally. No wheezes, (units unknown) (unknown) (unknown) (no date) (unknown) (unknown) RESPIRATORY: D enies dyspnea, cough, wheezing, hemoptysis, sputum. (units unknown) (unknown) (unknown) (no date) (unknown) (unknown) Re-evaluations : Patient does have improvement in symptoms (units unknown) (unknown) (unknown) (no date) (unknown) (unknown) Referrals: (units unknown) (unknown) (unknown) (no date) (unknown) (unknown) Related Data (units unknown) (unknown) (unknown) (no date) (unknown) (unknown) Resource line at [phone]. They will ask some questions about your medical (units unknown) (unknown) (unknown) (no date) (unknown) (unknown) Respiratory Ra te 18 05/27/22 22:00 (units unknown) (unknown) (unknown) (no date) (unknown) (unknown) Respiratory Rate 18 (units unknown) (unknown) (unknown) (no date) (unknown) (unknown) Respiratory Rate (un its unknown) (unknown) (unknown) (no date) (unknown) (unknown) Review of Systems (u nits unknown) (unknown) (unknown) (no date) (unknown) (unknown) Rx Instructions: (un its unknown) (unknown) (unknown) (no date) (unknown) (unknown) SEEINSTR ONE (units unknown) (unknown) (unknown) (no date) (unknown) (unknown) SKIN: Denies r kendra, skin lesions, or other (units unknown) (unknown) (unknown) (no date) (unknown) (unknown) SKIN: No rash or erythema of visible areas (units unknown) (unknown) (unknown) (no date) (unknown) (unknown) See Rx Instruc tions .ROUTE .COMPLEX Qty: 21 0RF (units unknown) (unknown) (unknown) (no date) (unknown) (unknown) Signed By: (units unknown) (unknown) (unknown) (no date) (unknown) (unknown) Smoking Status : Never smoker (units unknown) (unknown) (unknown) (no date) (unknown) (unknown) Social History (units unknown) (unknown) (unknown) (no date) (unknown) (unknown) Source: patient (uni ts unknown) (unknown) (unknown) (no date) (unknown) (unknown) Stand Alone Fo lorraine: Patient Portal/API (units unknown) (unknown) (unknown) (no date) (unknown) (unknown) Stated Complai nt: back pain (units unknown) (unknown) (unknown) (no date) (unknown) (unknown) Stop: 05/27/22 23:17 (units unknown) (unknown) (unknown) (no date) (unknown) (unknown) Stop: 05/27/22 23:18 (units unknown) (unknown) (unknown) (no date) (unknown) (unknown) Substance Use Type: does not use (units unknown) (unknown) (unknown) (no date) (unknown) (unknown) Temperature 98 .1 F 05/27/22 22:00 (units unknown) (unknown) (unknown) (no date) (unknown) (unknown) Temperature 98.1 F ( units unknown) (unknown) (unknown) (no date) (unknown) (unknown) Temperature (units unknown) (unknown) (unknown) (no date) (unknown) (unknown) Time Seen by Wesley gann: 05/27/22 21:56 (units unknown) (unknown) (unknown) (no date) (unknown) (unknown) Treatments: Di laudid, ketorolac, steroid (units unknown) (unknown) (unknown) (no date) (unknown) (unknown) Vital Signs - 8 hr ( units unknown) (unknown) (unknown) (no date) (unknown) (unknown) Vital Signs (units unknown) (unknown) (unknown) (no date) (unknown) (unknown) Vital signs: (units unknown) (unknown) (unknown) (no date) (unknown) (unknown) While on these medications you cannot drive or operate heavy machinery. (units unknown) (unknown) (unknown) (no date) (unknown) (unknown) You have been prescribed a short course of narcotic medications. These are (units unknown) (unknown) (unknown) (no date) (unknown) (unknown) [ ] New medica tion written as a paper prescription (units unknown) (unknown) (unknown) (no date) (unknown) (unknown) [ ] No new med ications given (units unknown) (unknown) (unknown) (no date) (unknown) (unknown) [x ] New medic ation prescriptions sent to your pharmacy: [ [facility]] (units unknown) (unknown) (unknown) (no date) (unknown) (unknown) a dose pack (Abilio llamas (Adria)) #21 ea (units unknown) (unknown) (unknown) (no date) (unknown) (unknown) additional out patient follow up (units unknown) (unknown) (unknown) (no date) (unknown) (unknown) advisable to d alejandro stool softeners with the pharmacist when you mushroom picker your (units unknown) (unknown) (unknown) (no date) (unknown) (unknown) anesthesia, de pressed reflexes, lower extremity weakness, fever, use of blood (units unknown) (unknown) (unknown) (no date) (unknown) (unknown) appointment. L et them know you were seen in the Emergency Department and that we (units unknown) (unknown) (unknown) (no date) (unknown) (unknown) around his tori e and into his right testicle and somewhat extending into his (units unknown) (unknown) (unknown) (no date) (unknown) (unknown) ask that you b e seen in follow up. We will electronically transmit a record of (units unknown) (unknown) (unknown) (no date) (unknown) (unknown) baclofen 20 mg tablet 20 mg PO TID #21 tabs 09/10/21 (units unknown) (unknown) (unknown) (no date) (unknown) (unknown) baclofen 20 mg table t (units unknown) (unknown) (unknown) (no date) (unknown) (unknown) been reviewed with patient as well as indications for ED re-evaluation and (units unknown) (unknown) (unknown) (no date) (unknown) (unknown) but no red fla g findings suggestive of a neurosurgical emergency such as saddle (units unknown) (unknown) (unknown) (no date) (unknown) (unknown) concerning sym ptoms, such as [fever greater than 101 F, shaking chills, (units unknown) (unknown) (unknown) (no date) (unknown) (unknown) constipation, melena . (units unknown) (unknown) (unknown) (no date) (unknown) (unknown) consultation w ith his back surgeon upcoming to discuss the use of a back (units unknown) (unknown) (unknown) (no date) (unknown) (unknown) controlled sub stances through the ED and your pain management will need to be (units unknown) (unknown) (unknown) (no date) (unknown) (unknown) dizziness. (units unknown) (unknown) (unknown) (no date) (unknown) (unknown) equina, epidur al abscess, epidural hematoma versus other (units unknown) (unknown) (unknown) (no date) (unknown) (unknown) family underst and and agree with the diagnosis and plan and have had their (units unknown) (unknown) (unknown) (no date) (unknown) (unknown) history and he lp get you set up with a doctor in the community. (units unknown) (unknown) (unknown) (no date) (unknown) (unknown) history and ph ysical exam are reassuring and there is no obvious evidence of a (units unknown) (unknown) (unknown) (no date) (unknown) (unknown) hydrocodone 5 mg-acetaminophen 325 1 tab PO Q4-6H PRN pain #20 tabs 05/27/22 (units unknown) (unknown) (unknown) (no date) (unknown) (unknown) hydrocodone-ac etaminop hen 5-325 mg tablet (units unknown) (unknown) (unknown) (no date) (unknown) (unknown) icterus. No in jection or drainage. (units unknown) (unknown) (unknown) (no date) (unknown) (unknown) methylpredniso lone 4 mg tablets in See Rx Instructions PO .COMPLEX 05/27/22 (units unknown) (unknown) (unknown) (no date) (unknown) (unknown) methylpredniso lone [Medrol (Adria)] 4 mg tablets,dose pack (units unknown) (unknown) (unknown) (no date) (unknown) (unknown) mg tablet (units unknown) (unknown) (unknown) (no date) (unknown) (unknown) mild distress. (unit s unknown) (unknown) (unknown) (no date) (unknown) (unknown) moves and impr oves with rest. He does take Lyrica and methocarbamol but does (units unknown) (unknown) (unknown) (no date) (unknown) (unknown) muscle strengt h bilateral lower extremities, sensation intact, reflexes intact. (units unknown) (unknown) (unknown) (no date) (unknown) (unknown) neurosurgical emergency] (units unknown) (unknown) (unknown) (no date) (unknown) (unknown) new footdrop, no new lower extremity weakness. No trauma, fever or use of blood (units unknown) (unknown) (unknown) (no date) (unknown) (unknown) not have any o pioids and has not taken steroids and some time. He does have a (units unknown) (unknown) (unknown) (no date) (unknown) (unknown) notes decrease d range of motion and muscle spasm, but no CVA tenderness, or (units unknown) (unknown) (unknown) (no date) (unknown) (unknown) orally per pac kage directions (units unknown) (unknown) (unknown) (no date) (unknown) (unknown) oxycodone 5 mg tablet 5 mg PO Q6H PRN pain #14 tabs 03/09/22 (units unknown) (unknown) (unknown) (no date) (unknown) (unknown) oxycodone 5 mg table t (units unknown) (unknown) (unknown) (no date) (unknown) (unknown) potentially da ngerous and addictive medications that should be used carefully. (units unknown) (unknown) (unknown) (no date) (unknown) (unknown) prescription. (units unknown) (unknown) (unknown) (no date) (unknown) (unknown) questions answ ered to their apparent satisfaction (units unknown) (unknown) (unknown) (no date) (unknown) (unknown) rales, or rhonchi. ( units unknown) (unknown) (unknown) (no date) (unknown) (unknown) right leg, the re is some numbness down his right leg but no weakness. He has no (units unknown) (unknown) (unknown) (no date) (unknown) (unknown) saddle anesthe marina, and decreased reflexes, decreased sensation or strength. (units unknown) (unknown) (unknown) (no date) (unknown) (unknown) stimulator. He states that he had been relatively stable until a few weeks ago (units unknown) (unknown) (unknown) (no date) (unknown) (unknown) surgeries and radiculopathy with left-sided footdrop presents with his in (units unknown) (unknown) (unknown) (no date) (unknown) (unknown) the chief comp laint of increasing pain in his right lower back with radiation (units unknown) (unknown) (unknown) (no date) (unknown) (unknown) thinners. His symptoms improve with above-stated therapies. Prescription sent (units unknown) (unknown) (unknown) (no date) (unknown) (unknown) thinners. No t rouble controlling bowel or bladder. His pain is worse when he (units unknown) (unknown) (unknown) (no date) (unknown) (unknown) this. Many peo ple get constipated on narcotic medications so it would be (units unknown) (unknown) (unknown) (no date) (unknown) (unknown) through your P [facility] Care Provider (units unknown) (unknown) (unknown) (no date) (unknown) (unknown) to his pharmac y. He has scheduled follow-up with his spine doctors. He and (units unknown) (unknown) (unknown) (no date) (unknown) (unknown) today's note i f your PCP is in our system (units unknown) (unknown) (unknown) (no date) (unknown) (unknown) tonsillar hype rtrophy or exudate. Airway patent. (units unknown) (unknown) (unknown) (no date) (unknown) (unknown) vertebral poin t tenderness. There are no symptoms of cauda equina such as (units unknown) (unknown) (unknown) (no date) (unknown) (unknown) when he was ca rrying a heavy object and felt a pulling sensation in his back. (units unknown) (unknown) (unknown) (no date) (unknown) (unknown) worsening pain , persistent vomiting or other bothersome symptoms] (units unknown) (unknown) Result panel 3 (unknown) (no date) (unknown) (unknown) (no value) (units unknown) (unknown) (unknown) (no date) (unknown) (unknown) 06/04/22 (units unknown) (unknown) (unknown) (no date) (unknown) (unknown) [address] [place] [address] (un its unknown) (unknown) (unknown) (no date) (unknown) (unknown) 1990 (units unknown) (unknown) (unknown) (no date) (unknown) (unknown) 05/22/2021, 2:31. (un its unknown) (unknown) (unknown) (no date) (unknown) (unknown) Accession Numb er: [id number] (units unknown) (unknown) (unknown) (no date) (unknown) (unknown) Age/Sex: 47 / M Date of Service: (units unknown) (unknown) (unknown) (no date) (unknown) (unknown) [place] [address] (units unknown) (unknown) (unknown) (no date) (unknown) (unknown) Approved by: Fercho Khan M.D. on 06/04/2022 at 21:57 (units unknown) (unknown) (unknown) (no date) (unknown) (unknown) Bones: 5 [id number] vertebrae are present. Pedicle screw fixation at L3 (units unknown) (unknown) (unknown) (no date) (unknown) (unknown) COMPARISON: [facility], CR, XR LUMBAR SPINE 2 OR 3 VIEWS, (units unknown) (unknown) (unknown) (no date) (unknown) (unknown) : 5 Acct:[id number] (units unknown) (unknown) (unknown) (no date) (unknown) (unknown) Dictated by: Fercho Khan M.D. on 06/04/2022 at 21:55 (units unknown) (unknown) (unknown) (no date) (unknown) (unknown) FINDINGS: (units unknown) (unknown) (unknown) (no date) (unknown) (unknown) IMPRESSION: (units unknown) (unknown) (unknown) (no date) (unknown) (unknown) INDICATIONS: h x of multiple back surgeries with pain after fall (units unknown) (unknown) (unknown) (no date) (unknown) (unknown) [facility] (uni ts unknown) (unknown) (unknown) (no date) (unknown) (unknown) [facility] l, MR, MR LUMBAR SPINE WO CON, 03/09/2022, 20:09. (units unknown) (unknown) (unknown) (no date) (unknown) (unknown) Loc: ED (units unknown) (unknown) (unknown) (no date) (unknown) (unknown) Lumbar spine f ixation appears stable. (units unknown) (unknown) (unknown) (no date) (unknown) (unknown) No suspicious bony lesions. (units unknown) (unknown) (unknown) (no date) (unknown) (unknown) Ordering Kris kael: Everette Villafuerte D.O. (units unknown) (unknown) (unknown) (no date) (unknown) (unknown) PROCEDURE: XR LUMBAR SPINE 2-3V (units unknown) (unknown) (unknown) (no date) (unknown) (unknown) Patient: Kishor Carrasquillo MR#: [id number] (units unknown) (unknown) (unknown) (no date) (unknown) (unknown) Procedure: XR lumbar spine 2-3V (units unknown) (unknown) (unknown) (no date) (unknown) (unknown) S1 appears (units unknown) (unknown) (unknown) (no date) (unknown) (unknown) Signed (units unknown) (unknown) (unknown) (no date) (unknown) (unknown) Soft tissues: Overlying bowel gas pattern is normal. No suspicious soft tissue (units unknown) (unknown) (unknown) (no date) (unknown) (unknown) T12 compressio n fracture is unchanged. (units unknown) (unknown) (unknown) (no date) (unknown) (unknown) TECHNIQUE: 2 v iews of the lumbar spine were acquired. (units unknown) (unknown) (unknown) (no date) (unknown) (unknown) XRay Report (units unknown) (unknown) (unknown) (no date) (unknown) (unknown) calcifications. (uni ts unknown) (unknown) (unknown) (no date) (unknown) (unknown) stable. Anterolisthesis of L5 on S1, unchanged. T12 compression fracture, (units unknown) (unknown) (unknown) (no date) (unknown) (unknown) unchanged. (units unknown) (unknown) Result panel 4 (unknown) (no date) (unknown) (unknown) (no value) (units unknown) (unknown) (unknown) (no date) (unknown) (unknown) 06/04/22 (units unknown) (unknown) (unknown) (no date) (unknown) (unknown) 1 tab PO Q4-6H PRN (Reason: pain) Qty: 20 0RF (units unknown) (unknown) (unknown) (no date) (unknown) (unknown) 20 mg PO TID Q ty: 21 0RF (units unknown) (unknown) (unknown) (no date) (unknown) (unknown) 20:37 (units unknown) (unknown) (unknown) (no date) (unknown) (unknown) 5 mg PO Q6H OR N (Reason: pain) Qty: 14 0RF (units unknown) (unknown) (unknown) (no date) (unknown) (unknown) 990 (units unknown) (unknown) (unknown) (no date) (unknown) (unknown) Age/Sex: 47 / M (uni ts unknown) (unknown) (unknown) (no date) (unknown) (unknown) Allergies (units unknown) (unknown) (unknown) (no date) (unknown) (unknown) Allergy/AdvRea c Type Severity Reaction Status Date / Time (units unknown) (unknown) (unknown) (no date) (unknown) (unknown) Blood Pressure 134/91 H 06/04/22 20:37 (units unknown) (unknown) (unknown) (no date) (unknown) (unknown) Blood Pressure 134/91 H (units unknown) (unknown) (unknown) (no date) (unknown) (unknown) Chief Complain t: Back Pain/Injury (units unknown) (unknown) (unknown) (no date) (unknown) (unknown) Course (units unknown) (unknown) (unknown) (no date) (unknown) (unknown) : 5 Acct:[id number] (units unknown) (unknown) (unknown) (no date) (unknown) (unknown) Date of Servic e: 06/04/22 (units unknown) (unknown) (unknown) (no date) (unknown) (unknown) Departure (units unknown) (unknown) (unknown) (no date) (unknown) (unknown) Discharge Plan (unit s unknown) (unknown) (unknown) (no date) (unknown) (unknown) ER Physician: Everette Villafuerte D.O. (units unknown) (unknown) (unknown) (no date) (unknown) (unknown) Emergency Report (un its unknown) (unknown) (unknown) (no date) (unknown) (unknown) Exam (units unknown) (unknown) (unknown) (no date) (unknown) (unknown) General (units unknown) (unknown) (unknown) (no date) (unknown) (unknown) HPI - Back Pain/Inju ry (units unknown) (unknown) (unknown) (no date) (unknown) (unknown) Initial Vital Signs (units unknown) (unknown) (unknown) (no date) (unknown) (unknown) Initial Vital Signs: (units unknown) (unknown) (unknown) (no date) (unknown) (unknown) [address] [address] (units unknown) (unknown) (unknown) (no date) (unknown) (unknown) Medication Instructions Recorded (units unknown) (unknown) (unknown) (no date) (unknown) (unknown) No Action (units unknown) (unknown) (unknown) (no date) (unknown) (unknown) No Known Drug Allergies Allergy Verified 09/10/21 16:42 (units unknown) (unknown) (unknown) (no date) (unknown) (unknown) Oxygen Deliver y Method Room Air 06/04/22 20:37 (units unknown) (unknown) (unknown) (no date) (unknown) (unknown) Oxygen Deliver y Method Room Air (units unknown) (unknown) (unknown) (no date) (unknown) (unknown) Patient History (uni ts unknown) (unknown) (unknown) (no date) (unknown) (unknown) Patient: Kishor Carrasquillo MR#: [id number] (units unknown) (unknown) (unknown) (no date) (unknown) (unknown) Prescriptions: (unit s unknown) (unknown) (unknown) (no date) (unknown) (unknown) Previous Rx's (units unknown) (unknown) (unknown) (no date) (unknown) (unknown) Pulse Oximetry 97 06/04/22 20:37 (units unknown) (unknown) (unknown) (no date) (unknown) (unknown) Pulse Oximetry 97 (u nits unknown) (unknown) (unknown) (no date) (unknown) (unknown) Pulse Rate 94 H 06/04/22 20:37 (units unknown) (unknown) (unknown) (no date) (unknown) (unknown) Pulse Rate 94 H (uni ts unknown) (unknown) (unknown) (no date) (unknown) (unknown) Related Data (units unknown) (unknown) (unknown) (no date) (unknown) (unknown) Respiratory Ra te 16 06/04/22 20:37 (units unknown) (unknown) (unknown) (no date) (unknown) (unknown) Respiratory Rate 16 (units unknown) (unknown) (unknown) (no date) (unknown) (unknown) Rx Instructions: (un its unknown) (unknown) (unknown) (no date) (unknown) (unknown) See Rx Instruc tions .ROUTE .COMPLEX Qty: 21 0RF (units unknown) (unknown) (unknown) (no date) (unknown) (unknown) Signed By: (units unknown) (unknown) (unknown) (no date) (unknown) (unknown) Smoking Status : Never smoker (units unknown) (unknown) (unknown) (no date) (unknown) (unknown) Social History (units unknown) (unknown) (unknown) (no date) (unknown) (unknown) Source: EMS (units unknown) (unknown) (unknown) (no date) (unknown) (unknown) Stated Complai nt: Bilat LE weakness (units unknown) (unknown) (unknown) (no date) (unknown) (unknown) Substance Use Type: does not use (units unknown) (unknown) (unknown) (no date) (unknown) (unknown) Temperature 99 .1 F 06/04/22 20:37 (units unknown) (unknown) (unknown) (no date) (unknown) (unknown) Temperature 99.1 F ( units unknown) (unknown) (unknown) (no date) (unknown) (unknown) Time Seen by Wesley gann: 06/04/22 21:05 (units unknown) (unknown) (unknown) (no date) (unknown) (unknown) Vital Signs - 8 hr ( units unknown) (unknown) (unknown) (no date) (unknown) (unknown) Vital Signs (units unknown) (unknown) (unknown) (no date) (unknown) (unknown) Vital signs: (units unknown) (unknown) (unknown) (no date) (unknown) (unknown) a dose pack (M edrol (Adria)) #21 ea (units unknown) (unknown) (unknown) (no date) (unknown) (unknown) baclofen 20 mg tablet 20 mg PO TID #21 tabs 09/10/21 (units unknown) (unknown) (unknown) (no date) (unknown) (unknown) baclofen 20 mg table t (units unknown) (unknown) (unknown) (no date) (unknown) (unknown) hydrocodone 5 mg-acetaminophen 325 1 tab PO Q4-6H PRN pain #20 tabs 05/27/22 (units unknown) (unknown) (unknown) (no date) (unknown) (unknown) hydrocodone-ac etaminop hen 5-325 mg tablet (units unknown) (unknown) (unknown) (no date) (unknown) (unknown) methylpredniso lone 4 mg tablets in See Rx Instructions PO .COMPLEX 05/27/22 (units unknown) (unknown) (unknown) (no date) (unknown) (unknown) methylpredniso lone [Medrol (Adria)] 4 mg tablets,dose pack (units unknown) (unknown) (unknown) (no date) (unknown) (unknown) mg tablet (units unknown) (unknown) (unknown) (no date) (unknown) (unknown) orally per pac kage directions (units unknown) (unknown) (unknown) (no date) (unknown) (unknown) oxycodone 5 mg tablet 5 mg PO Q6H PRN pain #14 tabs 03/09/22 (units unknown) (unknown) (unknown) (no date) (unknown) (unknown) oxycodone 5 mg table t (units unknown) (unknown) Result panel 5 (unknown) (no date) (unknown) (unknown) (no value) (units unknown) (unknown) (unknown) (no date) (unknown) (unknown) <Electronicall y signed by Everette Villafuerte D.O.> (units unknown) (unknown) (unknown) (no date) (unknown) (unknown) 06/04/22 21:10 (unit s unknown) (unknown) (unknown) (no date) (unknown) (unknown) 06/04/22 (units unknown) (unknown) (unknown) (no date) (unknown) (unknown) 06/05/22 0450 (units unknown) (unknown) (unknown) (no date) (unknown) (unknown) 1 tab PO Q4-6H PRN (Reason: pain) Qty: 10 0RF (units unknown) (unknown) (unknown) (no date) (unknown) (unknown) 1 tab PO Q4-6H PRN (Reason: pain) Qty: 20 0RF (units unknown) (unknown) (unknown) (no date) (unknown) (unknown) 20 mg PO TID Q ty: 21 0RF (units unknown) (unknown) (unknown) (no date) (unknown) (unknown) 21:21 06/04/22 (unit s unknown) (unknown) (unknown) (no date) (unknown) (unknown) 21:22 06/04/22 (unit s unknown) (unknown) (unknown) (no date) (unknown) (unknown) 21:22 (units unknown) (unknown) (unknown) (no date) (unknown) (unknown) 21:30 06/04/22 (unit s unknown) (unknown) (unknown) (no date) (unknown) (unknown) 22:00 06/04/22 (unit s unknown) (unknown) (unknown) (no date) (unknown) (unknown) 22:00 (units unknown) (unknown) (unknown) (no date) (unknown) (unknown) 22:30 06/04/22 (unit s unknown) (unknown) (unknown) (no date) (unknown) (unknown) 22:30 (units unknown) (unknown) (unknown) (no date) (unknown) (unknown) 23:00 06/04/22 (unit s unknown) (unknown) (unknown) (no date) (unknown) (unknown) 23:00 (units unknown) (unknown) (unknown) (no date) (unknown) (unknown) 05/22/2021, 2:31.? (u nits unknown) (unknown) (unknown) (no date) (unknown) (unknown) 5 mg PO Q6H OR N (Reason: pain) Qty: 14 0RF (units unknown) (unknown) (unknown) (no date) (unknown) (unknown) 990 (units unknown) (unknown) (unknown) (no date) (unknown) (unknown) ? (units unknown) (unknown) (unknown) (no date) (unknown) (unknown) Activity Restrictions/Additiona l Instructions: (units unknown) (unknown) (unknown) (no date) (unknown) (unknown) Age/Sex: 47 / M (uni ts unknown) (unknown) (unknown) (no date) (unknown) (unknown) Allergies (units unknown) (unknown) (unknown) (no date) (unknown) (unknown) Allergy/AdvRea c Type Severity Reaction Status Date / Time (units unknown) (unknown) (unknown) (no date) (unknown) (unknown) Back/Spine/Pelvis (u nits unknown) (unknown) (unknown) (no date) (unknown) (unknown) Blood Pressure 132/8 7 (units unknown) (unknown) (unknown) (no date) (unknown) (unknown) Blood Pressure 134/8 6 (units unknown) (unknown) (unknown) (no date) (unknown) (unknown) Blood Pressure 134/91 H 06/04/22 20:37 (units unknown) (unknown) (unknown) (no date) (unknown) (unknown) Blood Pressure 143/97 H (units unknown) (unknown) (unknown) (no date) (unknown) (unknown) Blood Pressure 152/93 H 132/86 (units unknown) (unknown) (unknown) (no date) (unknown) (unknown) Bones:? 5 [id number] vertebrae are present.? Pedicle screw fixation at L3 (units unknown) (unknown) (unknown) (no date) (unknown) (unknown) COMPARISON:? S Located within [facility], CR, XR LUMBAR SPINE 2 OR 3 VIEWS, (units unknown) (unknown) (unknown) (no date) (unknown) (unknown) Chief Complain t: Back Pain/Injury (units unknown) (unknown) (unknown) (no date) (unknown) (unknown) Clinical Impression: (units unknown) (unknown) (unknown) (no date) (unknown) (unknown) Constitutional (unit s unknown) (unknown) (unknown) (no date) (unknown) (unknown) Constitutional : Reports system reviewed and no additional complaints, except as (units unknown) (unknown) (unknown) (no date) (unknown) (unknown) Course (units unknown) (unknown) (unknown) (no date) (unknown) (unknown) : 5 Acct:[id number] (units unknown) (unknown) (unknown) (no date) (unknown) (unknown) Date of Servic e: 06/04/22 (units unknown) (unknown) (unknown) (no date) (unknown) (unknown) Departure (units unknown) (unknown) (unknown) (no date) (unknown) (unknown) Diazepam (Duque epam 5 Mg Tablet) 5 mg PO NOW ONE (units unknown) (unknown) (unknown) (no date) (unknown) (unknown) Discharge Plan (unit s unknown) (unknown) (unknown) (no date) (unknown) (unknown) Discontinued Medications (units unknown) (unknown) (unknown) (no date) (unknown) (unknown) Documented By: SB (u nits unknown) (unknown) (unknown) (no date) (unknown) (unknown) ED Orders (units unknown) (unknown) (unknown) (no date) (unknown) (unknown) ER Physician: Everette Villafuerte D.O. (units unknown) (unknown) (unknown) (no date) (unknown) (unknown) Emergency Report (un its unknown) (unknown) (unknown) (no date) (unknown) (unknown) Exam (units unknown) (unknown) (unknown) (no date) (unknown) (unknown) Extrem (units unknown) (unknown) (unknown) (no date) (unknown) (unknown) FINDINGS:? (units unknown) (unknown) (unknown) (no date) (unknown) (unknown) Gastrointestinal (un its unknown) (unknown) (unknown) (no date) (unknown) (unknown) Gastrointestin al: Reports system reviewed and no additional complaints, except (units unknown) (unknown) (unknown) (no date) (unknown) (unknown) General (units unknown) (unknown) (unknown) (no date) (unknown) (unknown) General: capil esme refill normal (units unknown) (unknown) (unknown) (no date) (unknown) (unknown) General: no ra shes or lesions noted (units unknown) (unknown) (unknown) (no date) (unknown) (unknown) General: patie nt alert, patient awake and moves all extremities (units unknown) (unknown) (unknown) (no date) (unknown) (unknown) Genitourinary (units unknown) (unknown) (unknown) (no date) (unknown) (unknown) Genitourinary: Reports system reviewed and no additional complaints, except as (units unknown) (unknown) (unknown) (no date) (unknown) (unknown) HPI - Back Pain/Inju ry (units unknown) (unknown) (unknown) (no date) (unknown) (unknown) HPI Narrative: (unit s unknown) (unknown) (unknown) (no date) (unknown) (unknown) Has had multip le surgeries in the past. His hardware in place. States he did (units unknown) (unknown) (unknown) (no date) (unknown) (unknown) Hematologic/Lymphati c (units unknown) (unknown) (unknown) (no date) (unknown) (unknown) History of Pre sent Illness (units unknown) (unknown) (unknown) (no date) (unknown) (unknown) Hydrocodone Bitart/Acetaminophen (Hydrocodone/Acet 5/325 Prepack) 1 bottle MISC (units unknown) (unknown) (unknown) (no date) (unknown) (unknown) IMPRESSION:? (units unknown) (unknown) (unknown) (no date) (unknown) (unknown) INDICATIONS:? hx of multiple back surgeries with pain after fall (units unknown) (unknown) (unknown) (no date) (unknown) (unknown) Imaging Data (units unknown) (unknown) (unknown) (no date) (unknown) (unknown) Initial Vital Signs (units unknown) (unknown) (unknown) (no date) (unknown) (unknown) Initial Vital Signs: (units unknown) (unknown) (unknown) (no date) (unknown) (unknown) Instructions: DI for Back Pain With Sciatica (units unknown) (unknown) (unknown) (no date) (unknown) (unknown) Integumentary/Breast s (units unknown) (unknown) (unknown) (no date) (unknown) (unknown) [facility] [address] [place] [id number] (units unknown) (unknown) (unknown) (no date) (unknown) (unknown) [facility], MR, MR LUMBAR SPINE WO CON, 03/09/2022, 20:09. (units unknown) (unknown) (unknown) (no date) (unknown) (unknown) Last Admin: 21:24 Dose: 5 mg (units unknown) (unknown) (unknown) (no date) (unknown) (unknown) Last Admin: 00:07 Dose: 1 bottle (units unknown) (unknown) (unknown) (no date) (unknown) (unknown) Last Admin: 00:07 Dose: 40 mg (units unknown) (unknown) (unknown) (no date) (unknown) (unknown) Limitations: n o limitations (units unknown) (unknown) (unknown) (no date) (unknown) (unknown) Lumbar spine f ixation appears stable. (units unknown) (unknown) (unknown) (no date) (unknown) (unknown) Lumbar strain (units unknown) (unknown) (unknown) (no date) (unknown) (unknown) Lumbar x-ray: (units unknown) (unknown) (unknown) (no date) (unknown) (unknown) MDM - Back Pain/Inju ry (units unknown) (unknown) (unknown) (no date) (unknown) (unknown) MDM Narrative (units unknown) (unknown) (unknown) (no date) (unknown) (unknown) Medical decisi on making narrative: (units unknown) (unknown) (unknown) (no date) (unknown) (unknown) Medication Instructions Recorded (units unknown) (unknown) (unknown) (no date) (unknown) (unknown) Mode of arrival: EMS (units unknown) (unknown) (unknown) (no date) (unknown) (unknown) Motor: muscle tone normal throughout (units unknown) (unknown) (unknown) (no date) (unknown) (unknown) Musculoskeletal (uni ts unknown) (unknown) (unknown) (no date) (unknown) (unknown) Musculoskeleta l: Reports system reviewed and no additional complaints, except as (units unknown) (unknown) (unknown) (no date) (unknown) (unknown) Neuro (units unknown) (unknown) (unknown) (no date) (unknown) (unknown) Neurologic (units unknown) (unknown) (unknown) (no date) (unknown) (unknown) Neurologic: Re ports system reviewed and no additional complaints, except as (units unknown) (unknown) (unknown) (no date) (unknown) (unknown) New (units unknown) (unknown) (unknown) (no date) (unknown) (unknown) No Action (units unknown) (unknown) (unknown) (no date) (unknown) (unknown) No Known Drug Allergies Allergy Verified 09/10/21 16:42 (units unknown) (unknown) (unknown) (no date) (unknown) (unknown) No suspicious bony lesions.? (units unknown) (unknown) (unknown) (no date) (unknown) (unknown) On Anticoagulants: N o (units unknown) (unknown) (unknown) (no date) (unknown) (unknown) Ordered: (units unknown) (unknown) (unknown) (no date) (unknown) (unknown) Orders (units unknown) (unknown) (unknown) (no date) (unknown) (unknown) Oxygen Deliver y Method Room Air 06/04/22 20:37 (units unknown) (unknown) (unknown) (no date) (unknown) (unknown) PROCEDURE:? XR LUMBAR SPINE 2-3V (units unknown) (unknown) (unknown) (no date) (unknown) (unknown) Patient Dispos ition: Home (units unknown) (unknown) (unknown) (no date) (unknown) (unknown) Patient History (uni ts unknown) (unknown) (unknown) (no date) (unknown) (unknown) Patient has tyler bjective weakness to bilateral lower extremities. He is able to (units unknown) (unknown) (unknown) (no date) (unknown) (unknown) Patient is a 47-year-old male. Has a longstanding history of lumbar issues. (units unknown) (unknown) (unknown) (no date) (unknown) (unknown) Patient: Kishor Carrasquillo MR#: [id number] (units unknown) (unknown) (unknown) (no date) (unknown) (unknown) Prednisone (Pr ednisone 20 Mg Tablet) 40 mg PO NOW ONE (units unknown) (unknown) (unknown) (no date) (unknown) (unknown) Prescriptions: (unit s unknown) (unknown) (unknown) (no date) (unknown) (unknown) Previous Rx's (units unknown) (unknown) (unknown) (no date) (unknown) (unknown) Pulse Oximetry 96 96 (units unknown) (unknown) (unknown) (no date) (unknown) (unknown) Pulse Oximetry 96 (u nits unknown) (unknown) (unknown) (no date) (unknown) (unknown) Pulse Oximetry 97 06/04/22 20:37 (units unknown) (unknown) (unknown) (no date) (unknown) (unknown) Pulse Oximetry 99 97 (units unknown) (unknown) (unknown) (no date) (unknown) (unknown) Pulse Rate 64 (units unknown) (unknown) (unknown) (no date) (unknown) (unknown) Pulse Rate 70 68 (un its unknown) (unknown) (unknown) (no date) (unknown) (unknown) Pulse Rate 71 66 (un its unknown) (unknown) (unknown) (no date) (unknown) (unknown) Pulse Rate 78 (units unknown) (unknown) (unknown) (no date) (unknown) (unknown) Pulse Rate 94 H 06/04/22 20:37 (units unknown) (unknown) (unknown) (no date) (unknown) (unknown) Radiologist's Impression: (units unknown) (unknown) (unknown) (no date) (unknown) (unknown) Recommend that you continue to take all of your medications as directed. You (units unknown) (unknown) (unknown) (no date) (unknown) (unknown) Related Data (units unknown) (unknown) (unknown) (no date) (unknown) (unknown) Respiratory Ra te 16 06/04/22 20:37 (units unknown) (unknown) (unknown) (no date) (unknown) (unknown) Review of Systems (u nits unknown) (unknown) (unknown) (no date) (unknown) (unknown) Rx Instructions: (un its unknown) (unknown) (unknown) (no date) (unknown) (unknown) S1 appears (units unknown) (unknown) (unknown) (no date) (unknown) (unknown) SEEINSTR ONE (units unknown) (unknown) (unknown) (no date) (unknown) (unknown) See Rx Instruc tions .ROUTE .COMPLEX Qty: 21 0RF (units unknown) (unknown) (unknown) (no date) (unknown) (unknown) Signed By: (units unknown) (unknown) (unknown) (no date) (unknown) (unknown) Skin (units unknown) (unknown) (unknown) (no date) (unknown) (unknown) Skin/Breast: R eports system reviewed and no additional complaints, except as (units unknown) (unknown) (unknown) (no date) (unknown) (unknown) Smoking Status : Never smoker (units unknown) (unknown) (unknown) (no date) (unknown) (unknown) Social History (units unknown) (unknown) (unknown) (no date) (unknown) (unknown) Soft tissues:? Overlying bowel gas pattern is normal.? No suspicious soft tissue (units unknown) (unknown) (unknown) (no date) (unknown) (unknown) Source: patien t and EMS (units unknown) (unknown) (unknown) (no date) (unknown) (unknown) Stand Alone Fo l[place]: Patient Portal/API (units unknown) (unknown) (unknown) (no date) (unknown) (unknown) Stated Complai nt: Bilat LE weakness (units unknown) (unknown) (unknown) (no date) (unknown) (unknown) Stop: 06/04/22 21:11 (units unknown) (unknown) (unknown) (no date) (unknown) (unknown) Stop: 06/04/22 23:30 (units unknown) (unknown) (unknown) (no date) (unknown) (unknown) Stop: 06/04/22 23:31 (units unknown) (unknown) (unknown) (no date) (unknown) (unknown) Substance Use Type: does not use (units unknown) (unknown) (unknown) (no date) (unknown) (unknown) T12 compressio n fracture is unchanged. (units unknown) (unknown) (unknown) (no date) (unknown) (unknown) TECHNIQUE:? 2 views of the lumbar spine were acquired.? (units unknown) (unknown) (unknown) (no date) (unknown) (unknown) Temperature 99 .1 F 06/04/22 20:37 (units unknown) (unknown) (unknown) (no date) (unknown) (unknown) Thoracic/Lumba r Spine: No paraspinal tenderness, No thoracic spinal tenderness (units unknown) (unknown) (unknown) (no date) (unknown) (unknown) Time Seen by Wesley gann: 06/04/22 21:05 (units unknown) (unknown) (unknown) (no date) (unknown) (unknown) Vital Signs - 8 hr ( units unknown) (unknown) (unknown) (no date) (unknown) (unknown) Vital Signs (units unknown) (unknown) (unknown) (no date) (unknown) (unknown) Vital signs: (units unknown) (unknown) (unknown) (no date) (unknown) (unknown) XR lumbar spin e 2-3V Stat (units unknown) (unknown) (unknown) (no date) (unknown) (unknown) a dose pack (Abilio llamas (Adria)) #21 ea (units unknown) (unknown) (unknown) (no date) (unknown) (unknown) a repeat visit to the spine surgeons to discuss further evaluation or maybe even (units unknown) (unknown) (unknown) (no date) (unknown) (unknown) and No lumbar spinal tenderness (units unknown) (unknown) (unknown) (no date) (unknown) (unknown) approximately 2 weeks ago. He did not fall. Since that time he is had (units unknown) (unknown) (unknown) (no date) (unknown) (unknown) as documented (units unknown) (unknown) (unknown) (no date) (unknown) (unknown) baclofen 20 mg tablet 20 mg PO TID #21 tabs 09/10/21 (units unknown) (unknown) (unknown) (no date) (unknown) (unknown) baclofen 20 mg table t (units unknown) (unknown) (unknown) (no date) (unknown) (unknown) calcifications.? (un its unknown) (unknown) (unknown) (no date) (unknown) (unknown) can use the mu scle relaxers as needed. I recommend that you talk with your (units unknown) (unknown) (unknown) (no date) (unknown) (unknown) change in dinorah l habits. He says it feels like is having some spasming in his (units unknown) (unknown) (unknown) (no date) (unknown) (unknown) department rec ently for the symptoms. Was discharged home with steroids. Took (units unknown) (unknown) (unknown) (no date) (unknown) (unknown) documented (units unknown) (unknown) (unknown) (no date) (unknown) (unknown) extremity weak ness. He states that he is having some discomfort in his back but (units unknown) (unknown) (unknown) (no date) (unknown) (unknown) fracture. Dana ent was able to stand use a walker at bedside. Plan will be is (units unknown) (unknown) (unknown) (no date) (unknown) (unknown) given return precautions. He expressed understanding and agreement. (units unknown) (unknown) (unknown) (no date) (unknown) (unknown) hydrocodone 5 mg-acetaminophen 325 1 tab PO Q4-6H PRN pain #10 tabs 06/04/22 (units unknown) (unknown) (unknown) (no date) (unknown) (unknown) hydrocodone 5 mg-acetaminophen 325 1 tab PO Q4-6H PRN pain #20 tabs 05/27/22 (units unknown) (unknown) (unknown) (no date) (unknown) (unknown) hydrocodone-ac etaminop hen 5-325 mg tablet (units unknown) (unknown) (unknown) (no date) (unknown) (unknown) increasing iss ues with discomfort in his back and weakness in his legs and (units unknown) (unknown) (unknown) (no date) (unknown) (unknown) is no indicati on for acute surgical intervention or consultation he may require (units unknown) (unknown) (unknown) (no date) (unknown) (unknown) it is more wea kness. He is not having any fevers. No urinary symptoms. No (units unknown) (unknown) (unknown) (no date) (unknown) (unknown) lift his legs up off the bed. The x-ray of his lumbar spine shows no acute (units unknown) (unknown) (unknown) (no date) (unknown) (unknown) lower back. (units unknown) (unknown) (unknown) (no date) (unknown) (unknown) methylpredniso lone 4 mg tablets in See Rx Instructions PO .COMPLEX 05/27/22 (units unknown) (unknown) (unknown) (no date) (unknown) (unknown) methylpredniso lone 4 mg tablets in See Rx Instructions PO .COMPLEX 06/04/22 (units unknown) (unknown) (unknown) (no date) (unknown) (unknown) methylpredniso lone [Medrol (Adria)] 4 mg tablets,dose pack (units unknown) (unknown) (unknown) (no date) (unknown) (unknown) mg tablet (units unknown) (unknown) (unknown) (no date) (unknown) (unknown) not have any p roblems until just recently. He states he slipped while walking (units unknown) (unknown) (unknown) (no date) (unknown) (unknown) orally per pac kage directions (units unknown) (unknown) (unknown) (no date) (unknown) (unknown) oxycodone 5 mg tablet 5 mg PO Q6H PRN pain #14 tabs 03/09/22 (units unknown) (unknown) (unknown) (no date) (unknown) (unknown) oxycodone 5 mg table t (units unknown) (unknown) (unknown) (no date) (unknown) (unknown) pathology. The hardware appears to be in place. He is not having any urinary (units unknown) (unknown) (unknown) (no date) (unknown) (unknown) primary doctor or orthopedic provider about further workup of your symptoms. (units unknown) (unknown) (unknown) (no date) (unknown) (unknown) radiation of discomfort down into his legs. Was seen here in the emergency (units unknown) (unknown) (unknown) (no date) (unknown) (unknown) stable.? 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 T12 compression fracture, (units unknown) (unknown) (unknown) (no date) (unknown) (unknown) symptoms nor b owel changes. Low suspicion for cauda equina. Low suspicion for (units unknown) (unknown) (unknown) (no date) (unknown) (unknown) the steroids a s directed. Thought maybe he has improved with that treatment (units unknown) (unknown) (unknown) (no date) (unknown) (unknown) to see physica l therapy but he can see his primary doctor for this. He was (units unknown) (unknown) (unknown) (no date) (unknown) (unknown) to start him b ack on his steroids as this did seem to help his symptoms. There (units unknown) (unknown) (unknown) (no date) (unknown) (unknown) unchanged.? (units unknown) (unknown) (unknown) (no date) (unknown) (unknown) until this issa mcconnell who states he had a fairly sudden onset of bilateral lower (units unknown) (unknown) Result panel 6 (unknown) (no date) (unknown) (unknown) (no value) (units unknown) (unknown) (unknown) (no date) (unknown) (unknown) 06/07/22 (units unknown) (unknown) (unknown) (no date) (unknown) (unknown) 1 tab PO Q4-6H PRN (Reason: pain) Qty: 10 0RF (units unknown) (unknown) (unknown) (no date) (unknown) (unknown) 1 tab PO Q4-6H PRN (Reason: pain) Qty: 20 0RF (units unknown) (unknown) (unknown) (no date) (unknown) (unknown) 13:07 (units unknown) (unknown) (unknown) (no date) (unknown) (unknown) 20 mg PO TID Q ty: 21 0RF (units unknown) (unknown) (unknown) (no date) (unknown) (unknown) 5 mg PO Q6H OR N (Reason: pain) Qty: 14 0RF (units unknown) (unknown) (unknown) (no date) (unknown) (unknown) 990 (units unknown) (unknown) (unknown) (no date) (unknown) (unknown) Age/Sex: 47 / M (uni ts unknown) (unknown) (unknown) (no date) (unknown) (unknown) Allergies (units unknown) (unknown) (unknown) (no date) (unknown) (unknown) Allergy/AdvRea c Type Severity Reaction Status Date / Time (units unknown) (unknown) (unknown) (no date) (unknown) (unknown) Blood Pressure 152/108 H 06/07/22 13:07 (units unknown) (unknown) (unknown) (no date) (unknown) (unknown) Blood Pressure 152/108 H (units unknown) (unknown) (unknown) (no date) (unknown) (unknown) Chief Complain t: Back Pain/Injury (units unknown) (unknown) (unknown) (no date) (unknown) (unknown) Course (units unknown) (unknown) (unknown) (no date) (unknown) (unknown) : 5 Acct:[id number] (units unknown) (unknown) (unknown) (no date) (unknown) (unknown) : 1975 (uni ts unknown) (unknown) (unknown) (no date) (unknown) (unknown) Date of Servic e: 06/07/22 (units unknown) (unknown) (unknown) (no date) (unknown) (unknown) Departure (units unknown) (unknown) (unknown) (no date) (unknown) (unknown) Discharge Plan (unit s unknown) (unknown) (unknown) (no date) (unknown) (unknown) ER Physician: Sahara Roman (units unknown) (unknown) (unknown) (no date) (unknown) (unknown) Emergency Report (un its unknown) (unknown) (unknown) (no date) (unknown) (unknown) Exam (units unknown) (unknown) (unknown) (no date) (unknown) (unknown) General (units unknown) (unknown) (unknown) (no date) (unknown) (unknown) HPI - Back Pain/Inju ry (units unknown) (unknown) (unknown) (no date) (unknown) (unknown) HPI Narrative: (unit s unknown) (unknown) (unknown) (no date) (unknown) (unknown) History of Pre sent Illness (units unknown) (unknown) (unknown) (no date) (unknown) (unknown) Initial Vital Signs (units unknown) (unknown) (unknown) (no date) (unknown) (unknown) Initial Vital Signs: (units unknown) (unknown) (unknown) (no date) (unknown) (unknown) [address] [address] (units unknown) (unknown) (unknown) (no date) (unknown) (unknown) MR#: [id number] (uni ts unknown) (unknown) (unknown) (no date) (unknown) (unknown) Medication Instructions Recorded (units unknown) (unknown) (unknown) (no date) (unknown) (unknown) No Action (units unknown) (unknown) (unknown) (no date) (unknown) (unknown) No Known Drug Allergies Allergy Verified 09/10/21 16:42 (units unknown) (unknown) (unknown) (no date) (unknown) (unknown) Oxygen Deliver y Method Room Air 06/07/22 13:07 (units unknown) (unknown) (unknown) (no date) (unknown) (unknown) Oxygen Deliver y Method Room Air (units unknown) (unknown) (unknown) (no date) (unknown) (unknown) Patient History (uni ts unknown) (unknown) (unknown) (no date) (unknown) (unknown) Patient: Kishor Carrasquillo MR#: [id number] (units unknown) (unknown) (unknown) (no date) (unknown) (unknown) Patient: Kishor Carrasquillo (units unknown) (unknown) (unknown) (no date) (unknown) (unknown) Prescriptions: (unit s unknown) (unknown) (unknown) (no date) (unknown) (unknown) Previous Rx's (units unknown) (unknown) (unknown) (no date) (unknown) (unknown) Pulse Oximetry 97 06/07/22 13:07 (units unknown) (unknown) (unknown) (no date) (unknown) (unknown) Pulse Oximetry 97 (u nits unknown) (unknown) (unknown) (no date) (unknown) (unknown) Pulse Rate 86 06/07/22 13:07 (units unknown) (unknown) (unknown) (no date) (unknown) (unknown) Pulse Rate 86 (units unknown) (unknown) (unknown) (no date) (unknown) (unknown) Related Data (units unknown) (unknown) (unknown) (no date) (unknown) (unknown) Respiratory Ra te 22 06/07/22 13:07 (units unknown) (unknown) (unknown) (no date) (unknown) (unknown) Respiratory Rate 22 (units unknown) (unknown) (unknown) (no date) (unknown) (unknown) Rx Instructions: (un its unknown) (unknown) (unknown) (no date) (unknown) (unknown) See Rx Instruc tions .ROUTE .COMPLEX Qty: 21 0RF (units unknown) (unknown) (unknown) (no date) (unknown) (unknown) Signed By: (units unknown) (unknown) (unknown) (no date) (unknown) (unknown) Smoking Status : Never smoker (units unknown) (unknown) (unknown) (no date) (unknown) (unknown) Social History (units unknown) (unknown) (unknown) (no date) (unknown) (unknown) Source: patient (uni ts unknown) (unknown) (unknown) (no date) (unknown) (unknown) Stated Complai nt: back pain worsening visited t-4 (units unknown) (unknown) (unknown) (no date) (unknown) (unknown) States he did not have any problems until just recently.? He states he slipped (units unknown) (unknown) (unknown) (no date) (unknown) (unknown) Substance Use Type: does not use (units unknown) (unknown) (unknown) (no date) (unknown) (unknown) Temperature 97 .1 F L 06/07/22 13:07 (units unknown) (unknown) (unknown) (no date) (unknown) (unknown) Temperature 97.1 F L (units unknown) (unknown) (unknown) (no date) (unknown) (unknown) This is a 47-y ear-old male with a longstanding history of lumbar issues.?Has had (units unknown) (unknown) (unknown) (no date) (unknown) (unknown) Time Seen by Wesley gann: 06/07/22 13:15 (units unknown) (unknown) (unknown) (no date) (unknown) (unknown) Vital Signs - 8 hr ( units unknown) (unknown) (unknown) (no date) (unknown) (unknown) Vital Signs (units unknown) (unknown) (unknown) (no date) (unknown) (unknown) Vital signs: (units unknown) (unknown) (unknown) (no date) (unknown) (unknown) a dose pack (Abilio Andrew)) #21 ea (units unknown) (unknown) (unknown) (no date) (unknown) (unknown) alcohol intake frequency: 0-2 drinks per day (units unknown) (unknown) (unknown) (no date) (unknown) (unknown) and radiation of discomfort down into his legs.? Was seen here in the emergency (units unknown) (unknown) (unknown) (no date) (unknown) (unknown) atraumatic. He completed a steroid pack and was prescribed hydrocodone. (units unknown) (unknown) (unknown) (no date) (unknown) (unknown) baclofen 20 mg tablet 20 mg PO TID #21 tabs 09/10/21 (units unknown) (unknown) (unknown) (no date) (unknown) (unknown) baclofen 20 mg table t (units unknown) (unknown) (unknown) (no date) (unknown) (unknown) change in dinorah l habits.? He says it feels like is having some spasming in his (units unknown) (unknown) (unknown) (no date) (unknown) (unknown) department rec ently for the symptoms.? Was discharged home with steroids.? Took (units unknown) (unknown) (unknown) (no date) (unknown) (unknown) emergency depa rtment 4 days ago and had lumbar spine x-rays without changes. He (units unknown) (unknown) (unknown) (no date) (unknown) (unknown) extremity weak ness.? He states that he is having some discomfort in his back but (units unknown) (unknown) (unknown) (no date) (unknown) (unknown) had subjective weakness to the lower extremities but was able to lift his legs (units unknown) (unknown) (unknown) (no date) (unknown) (unknown) hydrocodone 5 mg-acetaminophen 325 1 tab PO Q4-6H PRN pain #10 tabs 06/04/22 (units unknown) (unknown) (unknown) (no date) (unknown) (unknown) hydrocodone 5 mg-acetaminophen 325 1 tab PO Q4-6H PRN pain #20 tabs 05/27/22 (units unknown) (unknown) (unknown) (no date) (unknown) (unknown) hydrocodone-ac etaminop hen 5-325 mg tablet (units unknown) (unknown) (unknown) (no date) (unknown) (unknown) is had increas ing issues with discomfort in his back and weakness in his legs (units unknown) (unknown) (unknown) (no date) (unknown) (unknown) it is more wea kness.? He is not having any fevers.? No urinary symptoms.? No (units unknown) (unknown) (unknown) (no date) (unknown) (unknown) lower back. (units unknown) (unknown) (unknown) (no date) (unknown) (unknown) methylpredniso lone 4 mg tablets in See Rx Instructions PO .COMPLEX 05/27/22 (units unknown) (unknown) (unknown) (no date) (unknown) (unknown) methylpredniso lone 4 mg tablets in See Rx Instructions PO .COMPLEX 06/04/22 (units unknown) (unknown) (unknown) (no date) (unknown) (unknown) methylpredniso lone [Medrol (Adria)] 4 mg tablets,dose pack (units unknown) (unknown) (unknown) (no date) (unknown) (unknown) mg tablet (units unknown) (unknown) (unknown) (no date) (unknown) (unknown) multiple surge andria in the past.?Has hardware in place.? He was here in the (units unknown) (unknown) (unknown) (no date) (unknown) (unknown) orally per [facility] directions (units unknown) (unknown) (unknown) (no date) (unknown) (unknown) oxycodone 5 mg tablet 5 mg PO Q6H PRN pain #14 tabs 03/09/22 (units unknown) (unknown) (unknown) (no date) (unknown) (unknown) oxycodone 5 mg table t (units unknown) (unknown) (unknown) (no date) (unknown) (unknown) the steroids a s directed.? Thought maybe he has improved with that treatment (units unknown) (unknown) (unknown) (no date) (unknown) (unknown) until this issa enedina who states he had a fairly sudden onset of bilateral lower (units unknown) (unknown) (unknown) (no date) (unknown) (unknown) up off the bed . X-rays did not show acute pathology at the time and hardware (units unknown) (unknown) (unknown) (no date) (unknown) (unknown) was in place. Did not have urinary symptoms or bowel changes and was (units unknown) (unknown) (unknown) (no date) (unknown) (unknown) while walking approximately 2 weeks ago.? He did not fall.? Since that time he (units unknown) (unknown) Result panel 7 (unknown) (no date) (unknown) (unknown) (no value) (units unknown) (unknown) (unknown) (no date) (unknown) (unknown) -to-moderate b ilateral foraminal stenosis (units unknown) (unknown) (unknown) (no date) (unknown) (unknown) 06/07/22 (units unknown) (unknown) (unknown) (no date) (unknown) (unknown) [address] [place] [address] (un its unknown) (unknown) (unknown) (no date) (unknown) (unknown) 1990 (units unknown) (unknown) (unknown) (no date) (unknown) (unknown) Accession Numb er: [id number] (units unknown) (unknown) (unknown) (no date) (unknown) (unknown) Age/Sex: 47 / M Date of Service: (units unknown) (unknown) (unknown) (no date) (unknown) (unknown) Alignment and Curvature: There is normal bony alignment. (units unknown) (unknown) (unknown) (no date) (unknown) (unknown) [place] [address] (units unknown) (unknown) (unknown) (no date) (unknown) (unknown) Approved by: Vale Aden M.D. on 06/07/2022 at 14:37 (units unknown) (unknown) (unknown) (no date) (unknown) (unknown) Bone Marrow: Wedge-shaped compression fracture T12 without marrow edema or (units unknown) (unknown) (unknown) (no date) (unknown) (unknown) COMPARISON: [facility], MR, MR LUMBAR SPINE WO CON, 03/09/2022, 20:09. 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 (units unknown) (unknown) (unknown) (no date) (unknown) (unknown) [facility] (uni ts unknown) (unknown) (unknown) (no date) (unknown) (unknown) L1-L2: Disc sp cezar is preserved. No central or foraminal stenosis (units unknown) (unknown) (unknown) (no date) (unknown) (unknown) L2-L3: Disc sp cezar narrowing and circumferential disc bulge results in moderate (units unknown) (unknown) (unknown) (no date) (unknown) (unknown) L3, L4 and L5 decompressive laminectomies with interbody fusion and posterior (units unknown) (unknown) (unknown) (no date) (unknown) (unknown) L3-L4: Discect trang and fusion with posterior decompression. No central (units unknown) (unknown) (unknown) (no date) (unknown) (unknown) L4-L5: Discect trang and fusion with posterior decompression. No central (units unknown) (unknown) (unknown) (no date) (unknown) (unknown) L5-S1: Discect trang and fusion with posterior decompression. No central (units unknown) (unknown) (unknown) (no date) (unknown) (unknown) Loc: ED (units unknown) (unknown) (unknown) (no date) (unknown) (unknown) Lower lumbar s pine interbody fusion, posterior decompression and (units unknown) (unknown) (unknown) (no date) (unknown) (unknown) Magnetic Reson ance Report (units unknown) (unknown) (unknown) (no date) (unknown) (unknown) Moderate left and right foraminal stenosis (units unknown) (unknown) (unknown) (no date) (unknown) (unknown) Noncontrast sa gittal T1 spin echo and T2 fast echo, sagittal STIR, and T2 fast (units unknown) (unknown) (unknown) (no date) (unknown) (unknown) Ordering Eladioi kael: Sahara Roman (units unknown) (unknown) (unknown) (no date) (unknown) (unknown) PROCEDURE: MR LUMBAR SPINE WO CON (units unknown) (unknown) (unknown) (no date) (unknown) (unknown) Paraspinous So ft Tissues: No paravertebral masses. (units unknown) (unknown) (unknown) (no date) (unknown) (unknown) Patient: Kishor Carrasquillo MR#: [id number] (units unknown) (unknown) (unknown) (no date) (unknown) (unknown) Procedure: MR lumbar spine wo con (units unknown) (unknown) (unknown) (no date) (unknown) (unknown) Signed (units unknown) (unknown) (unknown) (no date) (unknown) (unknown) Spinal Cord: C onus medullaris terminates at the L1 level. Visualized cord (units unknown) (unknown) (unknown) (no date) (unknown) (unknown) T12-L1: Disc s pace is preserved. No central or foraminal stenosis. (units unknown) (unknown) (unknown) (no date) (unknown) (unknown) TECHNIQUE: (units unknown) (unknown) (unknown) (no date) (unknown) (unknown) bilateral fora solo stenosis (units unknown) (unknown) (unknown) (no date) (unknown) (unknown) central stenos is. Hypertrophic facet joints contribute to moderate bilateral (units unknown) (unknown) (unknown) (no date) (unknown) (unknown) central stenosis. (u nits unknown) (unknown) (unknown) (no date) (unknown) (unknown) change from (units unknown) (unknown) (unknown) (no date) (unknown) (unknown) demonstrates (units unknown) (unknown) (unknown) (no date) (unknown) (unknown) foraminal (units unknown) (unknown) (unknown) (no date) (unknown) (unknown) from prior exam (uni ts unknown) (unknown) (unknown) (no date) (unknown) (unknown) instrumentatio n, stable (units unknown) (unknown) (unknown) (no date) (unknown) (unknown) may be performed. (u nits unknown) (unknown) (unknown) (no date) (unknown) (unknown) normal signal and size. (units unknown) (unknown) (unknown) (no date) (unknown) (unknown) jules and (units unknown) (unknown) (unknown) (no date) (unknown) (unknown) screw instrume ntation also remains unchanged. (units unknown) (unknown) (unknown) (no date) (unknown) (unknown) severe (units unknown) (unknown) (unknown) (no date) (unknown) (unknown) spin echo (units unknown) (unknown) (unknown) (no date) (unknown) (unknown) stenosis (units unknown) (unknown) (unknown) (no date) (unknown) (unknown) stenosis. Mild (unit s unknown) (unknown) (unknown) (no date) (unknown) (unknown) stenosis. (units unknown) (unknown) (unknown) (no date) (unknown) (unknown) the prior exam . No retropulsed fracture fragment. (units unknown) (unknown) (unknown) (no date) (unknown) (unknown) through the tank mbar spine. In cases with scoliosis, additional coronal T2 fast (units unknown) (unknown) (unknown) (no date) (unknown) (unknown) to severe (units unknown) (unknown) Result panel 8 (unknown) (no date) (unknown) (unknown) (no value) (units unknown) (unknown) (unknown) (no date) (unknown) (unknown) 06/07/22 (units unknown) (unknown) (unknown) (no date) (unknown) (unknown) 1 tab PO Q4-6H PRN (Reason: pain) Qty: 10 0RF (units unknown) (unknown) (unknown) (no date) (unknown) (unknown) 1 tab PO Q4-6H PRN (Reason: pain) Qty: 20 0RF (units unknown) (unknown) (unknown) (no date) (unknown) (unknown) 13:07 (units unknown) (unknown) (unknown) (no date) (unknown) (unknown) 20 mg PO TID Q ty: 21 0RF (units unknown) (unknown) (unknown) (no date) (unknown) (unknown) 5 mg PO Q6H OR N (Reason: pain) Qty: 14 0RF (units unknown) (unknown) (unknown) (no date) (unknown) (unknown) 990 (units unknown) (unknown) (unknown) (no date) (unknown) (unknown) Age/Sex: 47 / M (uni ts unknown) (unknown) (unknown) (no date) (unknown) (unknown) Allergies (units unknown) (unknown) (unknown) (no date) (unknown) (unknown) Allergy/AdvRea c Type Severity Reaction Status Date / Time (units unknown) (unknown) (unknown) (no date) (unknown) (unknown) Blood Pressure 152/108 H 06/07/22 13:07 (units unknown) (unknown) (unknown) (no date) (unknown) (unknown) Blood Pressure 152/108 H (units unknown) (unknown) (unknown) (no date) (unknown) (unknown) Chief Complain t: Back Pain/Injury (units unknown) (unknown) (unknown) (no date) (unknown) (unknown) Course (units unknown) (unknown) (unknown) (no date) (unknown) (unknown) : 5 Acct:[id number] (units unknown) (unknown) (unknown) (no date) (unknown) (unknown) : 1975 (uni ts unknown) (unknown) (unknown) (no date) (unknown) (unknown) Date of Servic e: 06/07/22 (units unknown) (unknown) (unknown) (no date) (unknown) (unknown) Denies any rad icular pain. No changes in his bowels, he is requesting an MRI as (units unknown) (unknown) (unknown) (no date) (unknown) (unknown) Denies point tenderness, fever, stool changes, unilateral weakness or changes. (units unknown) (unknown) (unknown) (no date) (unknown) (unknown) Departure (units unknown) (unknown) (unknown) (no date) (unknown) (unknown) Discharge Plan (unit s unknown) (unknown) (unknown) (no date) (unknown) (unknown) ER Physician: Sahara Roman (units unknown) (unknown) (unknown) (no date) (unknown) (unknown) Emergency Report (un its unknown) (unknown) (unknown) (no date) (unknown) (unknown) Exam (units unknown) (unknown) (unknown) (no date) (unknown) (unknown) General (units unknown) (unknown) (unknown) (no date) (unknown) (unknown) HPI - Back Pain/Inju ry (units unknown) (unknown) (unknown) (no date) (unknown) (unknown) HPI Narrative: (unit s unknown) (unknown) (unknown) (no date) (unknown) (unknown) History of Pre sent Illness (units unknown) (unknown) (unknown) (no date) (unknown) (unknown) Initial Vital Signs (units unknown) (unknown) (unknown) (no date) (unknown) (unknown) Initial Vital Signs: (units unknown) (unknown) (unknown) (no date) (unknown) (unknown) [address] [address] (units unknown) (unknown) (unknown) (no date) (unknown) (unknown) Lyrica for his pain. (units unknown) (unknown) (unknown) (no date) (unknown) (unknown) MR#: [id number] (uni ts unknown) (unknown) (unknown) (no date) (unknown) (unknown) Medication Instructions Recorded (units unknown) (unknown) (unknown) (no date) (unknown) (unknown) No Action (units unknown) (unknown) (unknown) (no date) (unknown) (unknown) No Known Drug Allergies Allergy Verified 09/10/21 16:42 (units unknown) (unknown) (unknown) (no date) (unknown) (unknown) Orthopedics on June 13. He denies urinary frequency, urgency, or retention. (units unknown) (unknown) (unknown) (no date) (unknown) (unknown) Oxygen Deliver y Method Room Air 06/07/22 13:07 (units unknown) (unknown) (unknown) (no date) (unknown) (unknown) Oxygen Deliver y Method Room Air (units unknown) (unknown) (unknown) (no date) (unknown) (unknown) Patient History (uni ts unknown) (unknown) (unknown) (no date) (unknown) (unknown) Patient: Carrasquillo Kishor Eduardo MR#: [id number] (units unknown) (unknown) (unknown) (no date) (unknown) (unknown) Patient: Kishor Carrasquillo (units unknown) (unknown) (unknown) (no date) (unknown) (unknown) Prescriptions: (unit s unknown) (unknown) (unknown) (no date) (unknown) (unknown) Previous Rx's (units unknown) (unknown) (unknown) (no date) (unknown) (unknown) Pulse Oximetry 97 06/07/22 13:07 (units unknown) (unknown) (unknown) (no date) (unknown) (unknown) Pulse Oximetry 97 (u nits unknown) (unknown) (unknown) (no date) (unknown) (unknown) Pulse Rate 86 06/07/22 13:07 (units unknown) (unknown) (unknown) (no date) (unknown) (unknown) Pulse Rate 86 (units unknown) (unknown) (unknown) (no date) (unknown) (unknown) ROS Unobtainab le: All systems reviewed + are unremarkable except as noted in HPI (units unknown) (unknown) (unknown) (no date) (unknown) (unknown) Related Data (units unknown) (unknown) (unknown) (no date) (unknown) (unknown) Respiratory Ra te 22 06/07/22 13:07 (units unknown) (unknown) (unknown) (no date) (unknown) (unknown) Respiratory Rate 22 (units unknown) (unknown) (unknown) (no date) (unknown) (unknown) Review of Systems (u nits unknown) (unknown) (unknown) (no date) (unknown) (unknown) Rx Instructions: (un its unknown) (unknown) (unknown) (no date) (unknown) (unknown) See Rx Instruc tions .ROUTE .COMPLEX Qty: 21 0RF (units unknown) (unknown) (unknown) (no date) (unknown) (unknown) Signed By: (units unknown) (unknown) (unknown) (no date) (unknown) (unknown) Smoking Status : Never smoker (units unknown) (unknown) (unknown) (no date) (unknown) (unknown) Social History (units unknown) (unknown) (unknown) (no date) (unknown) (unknown) Source: patient (uni ts unknown) (unknown) (unknown) (no date) (unknown) (unknown) Stated Complai nt: back pain worsening visited t-4 (units unknown) (unknown) (unknown) (no date) (unknown) (unknown) States he had muscle spasms Sunday and Sunday over this weekend but does not (units unknown) (unknown) (unknown) (no date) (unknown) (unknown) Substance Use Type: does not use (units unknown) (unknown) (unknown) (no date) (unknown) (unknown) Temperature 97 .1 F L 06/07/22 13:07 (units unknown) (unknown) (unknown) (no date) (unknown) (unknown) Temperature 97.1 F L (units unknown) (unknown) (unknown) (no date) (unknown) (unknown) This is a 47-y ear-old male with a longstanding history of lumbar issues.?Has had (units unknown) (unknown) (unknown) (no date) (unknown) (unknown) Time Seen by Wesley gann: 06/07/22 13:15 (units unknown) (unknown) (unknown) (no date) (unknown) (unknown) Vital Signs - 8 hr ( units unknown) (unknown) (unknown) (no date) (unknown) (unknown) Vital Signs (units unknown) (unknown) (unknown) (no date) (unknown) (unknown) Vital signs: (units unknown) (unknown) (unknown) (no date) (unknown) (unknown) a dose pack (Abilio llamas (Adria)) #21 ea (units unknown) (unknown) (unknown) (no date) (unknown) (unknown) ago and states that his pain has not gotten better. He sees Anesis for (units unknown) (unknown) (unknown) (no date) (unknown) (unknown) alcohol intake frequency: 0-2 drinks per day (units unknown) (unknown) (unknown) (no date) (unknown) (unknown) and below (units unknown) (unknown) (unknown) (no date) (unknown) (unknown) atraumatic. He completed a steroid pack and was prescribed hydrocodone. He (units unknown) (unknown) (unknown) (no date) (unknown) (unknown) baclofen 20 mg tablet 20 mg PO TID #21 tabs 09/10/21 (units unknown) (unknown) (unknown) (no date) (unknown) (unknown) baclofen 20 mg table t (units unknown) (unknown) (unknown) (no date) (unknown) (unknown) complicated pa in management in [place], [place]. He has seen Dr. Umana in (units unknown) (unknown) (unknown) (no date) (unknown) (unknown) emergency depa rtment 4 days ago and had lumbar spine x-rays without changes. He (units unknown) (unknown) (unknown) (no date) (unknown) (unknown) had subjective weakness to the lower extremities but was able to lift his legs (units unknown) (unknown) (unknown) (no date) (unknown) (unknown) have muscle sp asms at this time. Is currently on his steroid pack from 4 days (units unknown) (unknown) (unknown) (no date) (unknown) (unknown) he states that when he slipped a few weeks ago on the deck, he had a twisting (units unknown) (unknown) (unknown) (no date) (unknown) (unknown) hydrocodone 5 mg-acetaminophen 325 1 tab PO Q4-6H PRN pain #10 tabs 06/04/22 (units unknown) (unknown) (unknown) (no date) (unknown) (unknown) hydrocodone 5 mg-acetaminophen 325 1 tab PO Q4-6H PRN pain #20 tabs 05/27/22 (units unknown) (unknown) (unknown) (no date) (unknown) (unknown) hydrocodone-ac etaminop hen 5-325 mg tablet (units unknown) (unknown) (unknown) (no date) (unknown) (unknown) methylpredniso lone 4 mg tablets in See Rx Instructions PO .COMPLEX 05/27/22 (units unknown) (unknown) (unknown) (no date) (unknown) (unknown) methylpredniso lone 4 mg tablets in See Rx Instructions PO .COMPLEX 06/04/22 (units unknown) (unknown) (unknown) (no date) (unknown) (unknown) methylpredniso lone [Medrol (Adria)] 4 mg tablets,dose pack (units unknown) (unknown) (unknown) (no date) (unknown) (unknown) mg tablet (units unknown) (unknown) (unknown) (no date) (unknown) (unknown) motion and fee ls like something is wrong because it is so painful. He takes (units unknown) (unknown) (unknown) (no date) (unknown) (unknown) multiple surge andria in the past.?Has hardware in place.? He was here in the (units unknown) (unknown) (unknown) (no date) (unknown) (unknown) orally per pac kage directions (units unknown) (unknown) (unknown) (no date) (unknown) (unknown) oxycodone 5 mg tablet 5 mg PO Q6H PRN pain #14 tabs 03/09/22 (units unknown) (unknown) (unknown) (no date) (unknown) (unknown) oxycodone 5 mg table t (units unknown) (unknown) (unknown) (no date) (unknown) (unknown) states that he is having a pain crisis, states it is just in his low back. (units unknown) (unknown) (unknown) (no date) (unknown) (unknown) the past, Dr. Baldwin from [facility], and is scheduled to see Dr. Charles with [facility] (units unknown) (unknown) (unknown) (no date) (unknown) (unknown) up off the bed . X-rays did not show acute pathology at the time and hardware (units unknown) (unknown) (unknown) (no date) (unknown) (unknown) was in place. Did not have urinary symptoms or bowel changes and was (units unknown) (unknown) Result panel 9 (unknown) (no date) (unknown) (unknown) (no value) (units unknown) (unknown) (unknown) (no date) (unknown) (unknown) 06/07/22 13:35 (unit s unknown) (unknown) (unknown) (no date) (unknown) (unknown) 06/07/22 (units unknown) (unknown) (unknown) (no date) (unknown) (unknown) 1 tab PO Q4-6H PRN (Reason: pain) Qty: 10 0RF (units unknown) (unknown) (unknown) (no date) (unknown) (unknown) 1 tab PO Q4-6H PRN (Reason: pain) Qty: 20 0RF (units unknown) (unknown) (unknown) (no date) (unknown) (unknown) 13:07 (units unknown) (unknown) (unknown) (no date) (unknown) (unknown) 20 mg PO TID Q ty: 21 0RF (units unknown) (unknown) (unknown) (no date) (unknown) (unknown) 5 mg PO Q6H OR N (Reason: pain) Qty: 14 0RF (units unknown) (unknown) (unknown) (no date) (unknown) (unknown) 990 (units unknown) (unknown) (unknown) (no date) (unknown) (unknown) Age/Sex: 47 / M (uni ts unknown) (unknown) (unknown) (no date) (unknown) (unknown) Allergies (units unknown) (unknown) (unknown) (no date) (unknown) (unknown) Allergy/AdvRea c Type Severity Reaction Status Date / Time (units unknown) (unknown) (unknown) (no date) (unknown) (unknown) Blood Pressure 152/108 H 06/07/22 13:07 (units unknown) (unknown) (unknown) (no date) (unknown) (unknown) Blood Pressure 152/108 H (units unknown) (unknown) (unknown) (no date) (unknown) (unknown) Chief Complain t: Back Pain/Injury (units unknown) (unknown) (unknown) (no date) (unknown) (unknown) Course (units unknown) (unknown) (unknown) (no date) (unknown) (unknown) : 5 Acct:[id number] (units unknown) (unknown) (unknown) (no date) (unknown) (unknown) : 1975 (uni ts unknown) (unknown) (unknown) (no date) (unknown) (unknown) Date of Servic e: 06/07/22 (units unknown) (unknown) (unknown) (no date) (unknown) (unknown) Denies any rad icular pain. No changes in his bowels, he is requesting an MRI as (units unknown) (unknown) (unknown) (no date) (unknown) (unknown) Denies point tenderness, fever, stool changes, unilateral weakness or changes. (units unknown) (unknown) (unknown) (no date) (unknown) (unknown) Departure (units unknown) (unknown) (unknown) (no date) (unknown) (unknown) Discharge Plan (unit s unknown) (unknown) (unknown) (no date) (unknown) (unknown) Discontinued Medications (units unknown) (unknown) (unknown) (no date) (unknown) (unknown) Documented By: OW (u nits unknown) (unknown) (unknown) (no date) (unknown) (unknown) ED Orders (units unknown) (unknown) (unknown) (no date) (unknown) (unknown) ER Physician: Sahara Roman (units unknown) (unknown) (unknown) (no date) (unknown) (unknown) Emergency Report (un its unknown) (unknown) (unknown) (no date) (unknown) (unknown) Exam (units unknown) (unknown) (unknown) (no date) (unknown) (unknown) General (units unknown) (unknown) (unknown) (no date) (unknown) (unknown) HPI - Back Pain/Inju ry (units unknown) (unknown) (unknown) (no date) (unknown) (unknown) HPI Narrative: (unit s unknown) (unknown) (unknown) (no date) (unknown) (unknown) History of Pre sent Illness (units unknown) (unknown) (unknown) (no date) (unknown) (unknown) Hydromorphone HCl (Hydromorphone 1 Mg Inj) 1 mg IM NOW ONE (units unknown) (unknown) (unknown) (no date) (unknown) (unknown) Initial Vital Signs (units unknown) (unknown) (unknown) (no date) (unknown) (unknown) Initial Vital Signs: (units unknown) (unknown) (unknown) (no date) (unknown) (unknown) [address] [address] (units unknown) (unknown) (unknown) (no date) (unknown) (unknown) Last Admin: 13:55 Dose: 750 mg (units unknown) (unknown) (unknown) (no date) (unknown) (unknown) Last Admin: 13:56 Dose: 1 each (units unknown) (unknown) (unknown) (no date) (unknown) (unknown) Last Admin: 13:58 Dose: 1 mg (units unknown) (unknown) (unknown) (no date) (unknown) (unknown) Lidocaine (Lid ocaine Patch 1 Each Adh..Patch) 1 each TOP NOW ONE (units unknown) (unknown) (unknown) (no date) (unknown) (unknown) Lyrica for his pain. (units unknown) (unknown) (unknown) (no date) (unknown) (unknown) MR lumbar spin e wo con Stat (units unknown) (unknown) (unknown) (no date) (unknown) (unknown) MR#: [id number] (uni ts unknown) (unknown) (unknown) (no date) (unknown) (unknown) Medication Instructions Recorded (units unknown) (unknown) (unknown) (no date) (unknown) (unknown) Methocarbamol (Methocarbamol 500 Mg Tablet) 750 mg PO NOW ONE (units unknown) (unknown) (unknown) (no date) (unknown) (unknown) No Action (units unknown) (unknown) (unknown) (no date) (unknown) (unknown) No Known Drug Allergies Allergy Verified 09/10/21 16:42 (units unknown) (unknown) (unknown) (no date) (unknown) (unknown) Ordered: (units unknown) (unknown) (unknown) (no date) (unknown) (unknown) Orders (units unknown) (unknown) (unknown) (no date) (unknown) (unknown) Orthopedics on June 13. He denies urinary frequency, urgency, or retention. (units unknown) (unknown) (unknown) (no date) (unknown) (unknown) Oxygen Deliver y Method Room Air 06/07/22 13:07 (units unknown) (unknown) (unknown) (no date) (unknown) (unknown) Oxygen Deliver y Method Room Air (units unknown) (unknown) (unknown) (no date) (unknown) (unknown) Patient History (uni ts unknown) (unknown) (unknown) (no date) (unknown) (unknown) Patient: Kishor Carrasquillo MR#: [id number] (units unknown) (unknown) (unknown) (no date) (unknown) (unknown) Patient: Kishor Carrasquillo (units unknown) (unknown) (unknown) (no date) (unknown) (unknown) Prescriptions: (unit s unknown) (unknown) (unknown) (no date) (unknown) (unknown) Previous Rx's (units unknown) (unknown) (unknown) (no date) (unknown) (unknown) Pulse Oximetry 97 06/07/22 13:07 (units unknown) (unknown) (unknown) (no date) (unknown) (unknown) Pulse Oximetry 97 (u nits unknown) (unknown) (unknown) (no date) (unknown) (unknown) Pulse Rate 86 06/07/22 13:07 (units unknown) (unknown) (unknown) (no date) (unknown) (unknown) Pulse Rate 86 (units unknown) (unknown) (unknown) (no date) (unknown) (unknown) ROS Unobtainab le: All systems reviewed + are unremarkable except as noted in HPI (units unknown) (unknown) (unknown) (no date) (unknown) (unknown) Related Data (units unknown) (unknown) (unknown) (no date) (unknown) (unknown) Respiratory Ra te 22 06/07/22 13:07 (units unknown) (unknown) (unknown) (no date) (unknown) (unknown) Respiratory Rate 22 (units unknown) (unknown) (unknown) (no date) (unknown) (unknown) Review of Systems (u nits unknown) (unknown) (unknown) (no date) (unknown) (unknown) Rx Instructions: (un its unknown) (unknown) (unknown) (no date) (unknown) (unknown) See Rx Instruc tions .ROUTE .COMPLEX Qty: 21 0RF (units unknown) (unknown) (unknown) (no date) (unknown) (unknown) Signed By: (units unknown) (unknown) (unknown) (no date) (unknown) (unknown) Smoking Status : Never smoker (units unknown) (unknown) (unknown) (no date) (unknown) (unknown) Social History (units unknown) (unknown) (unknown) (no date) (unknown) (unknown) Source: patient (uni ts unknown) (unknown) (unknown) (no date) (unknown) (unknown) Stated Complai nt: back pain worsening visited t-4 (units unknown) (unknown) (unknown) (no date) (unknown) (unknown) States he had muscle spasms Sunday and Sunday over this weekend but does not (units unknown) (unknown) (unknown) (no date) (unknown) (unknown) Stop: 06/07/22 13:36 (units unknown) (unknown) (unknown) (no date) (unknown) (unknown) Substance Use Type: does not use (units unknown) (unknown) (unknown) (no date) (unknown) (unknown) Temperature 97 .1 F L 06/07/22 13:07 (units unknown) (unknown) (unknown) (no date) (unknown) (unknown) Temperature 97.1 F L (units unknown) (unknown) (unknown) (no date) (unknown) (unknown) This is a 47-y ear-old male with a longstanding history of lumbar issues.?Has had (units unknown) (unknown) (unknown) (no date) (unknown) (unknown) Time Seen by Wesley gann: 06/07/22 13:15 (units unknown) (unknown) (unknown) (no date) (unknown) (unknown) Vital Signs - 8 hr ( units unknown) (unknown) (unknown) (no date) (unknown) (unknown) Vital Signs (units unknown) (unknown) (unknown) (no date) (unknown) (unknown) Vital signs: (units unknown) (unknown) (unknown) (no date) (unknown) (unknown) a dose pack (Abilio llamas (Adria)) #21 ea (units unknown) (unknown) (unknown) (no date) (unknown) (unknown) ago and states that his pain has not gotten better. He sees Anesis for (units unknown) (unknown) (unknown) (no date) (unknown) (unknown) alcohol intake frequency: 0-2 drinks per day (units unknown) (unknown) (unknown) (no date) (unknown) (unknown) and below (units unknown) (unknown) (unknown) (no date) (unknown) (unknown) atraumatic. He completed a steroid pack and was prescribed hydrocodone. He (units unknown) (unknown) (unknown) (no date) (unknown) (unknown) baclofen 20 mg tablet 20 mg PO TID #21 tabs 09/10/21 (units unknown) (unknown) (unknown) (no date) (unknown) (unknown) baclofen 20 mg table t (units unknown) (unknown) (unknown) (no date) (unknown) (unknown) complicated pa in management in [place], [place]. He has seen Dr. Umana in (units unknown) (unknown) (unknown) (no date) (unknown) (unknown) emergency depa rtment 4 days ago and had lumbar spine x-rays without changes. He (units unknown) (unknown) (unknown) (no date) (unknown) (unknown) had subjective weakness to the lower extremities but was able to lift his legs (units unknown) (unknown) (unknown) (no date) (unknown) (unknown) have muscle sp asms at this time. Is currently on his steroid pack from 4 days (units unknown) (unknown) (unknown) (no date) (unknown) (unknown) he states that when he slipped a few weeks ago on the deck, he had a twisting (units unknown) (unknown) (unknown) (no date) (unknown) (unknown) hydrocodone 5 mg-acetaminophen 325 1 tab PO Q4-6H PRN pain #10 tabs 06/04/22 (units unknown) (unknown) (unknown) (no date) (unknown) (unknown) hydrocodone 5 mg-acetaminophen 325 1 tab PO Q4-6H PRN pain #20 tabs 05/27/22 (units unknown) (unknown) (unknown) (no date) (unknown) (unknown) hydrocodone-ac etaminop hen 5-325 mg tablet (units unknown) (unknown) (unknown) (no date) (unknown) (unknown) methylpredniso lone 4 mg tablets in See Rx Instructions PO .COMPLEX 05/27/22 (units unknown) (unknown) (unknown) (no date) (unknown) (unknown) methylpredniso lone 4 mg tablets in See Rx Instructions PO .COMPLEX 06/04/22 (units unknown) (unknown) (unknown) (no date) (unknown) (unknown) methylpredniso lone [Medrol (Adria)] 4 mg tablets,dose pack (units unknown) (unknown) (unknown) (no date) (unknown) (unknown) mg tablet (units unknown) (unknown) (unknown) (no date) (unknown) (unknown) motion and fee ls like something is wrong because it is so painful. He takes (units unknown) (unknown) (unknown) (no date) (unknown) (unknown) multiple surge andria in the past.?Has hardware in place.? He was here in the (units unknown) (unknown) (unknown) (no date) (unknown) (unknown) orally per pac otilia directions (units unknown) (unknown) (unknown) (no date) (unknown) (unknown) oxycodone 5 mg tablet 5 mg PO Q6H PRN pain #14 tabs 03/09/22 (units unknown) (unknown) (unknown) (no date) (unknown) (unknown) oxycodone 5 mg table t (units unknown) (unknown) (unknown) (no date) (unknown) (unknown) states that he is having a pain crisis, states it is just in his low back. (units unknown) (unknown) (unknown) (no date) (unknown) (unknown) the past, Dr. Baldwin from [facility], and is scheduled to see Dr. Charles with [facility] (units unknown) (unknown) (unknown) (no date) (unknown) (unknown) up off the bed . X-rays did not show acute pathology at the time and hardware (units unknown) (unknown) (unknown) (no date) (unknown) (unknown) was in place. Did not have urinary symptoms or bowel changes and was (units unknown) (unknown) Result panel 10 (unknown) (no date) (unknown) (unknown) (no value) (units unknown) (unknown) (unknown) (no date) (unknown) (unknown) *If you do not have a primary care provider please contact [phone] to (units unknown) (unknown) (unknown) (no date) (unknown) (unknown) *Please contin ue to take your regular medications as directed. (units unknown) (unknown) (unknown) (no date) (unknown) (unknown) *Please follow up with your primary care provider in 2-3 days, call for an (units unknown) (unknown) (unknown) (no date) (unknown) (unknown) *Return to Dea rgency Department if you should have any new, worsening, or (units unknown) (unknown) (unknown) (no date) (unknown) (unknown) *What to do: (units unknown) (unknown) (unknown) (no date) (unknown) (unknown) *You have been diagnosed with [ ] (units unknown) (unknown) (unknown) (no date) (unknown) (unknown) 06/07/22 13:35 (unit s unknown) (unknown) (unknown) (no date) (unknown) (unknown) 06/07/22 (units unknown) (unknown) (unknown) (no date) (unknown) (unknown) 1 tab PO Q4-6H PRN (Reason: pain) Qty: 10 0RF (units unknown) (unknown) (unknown) (no date) (unknown) (unknown) 1 tab PO Q4-6H PRN (Reason: pain) Qty: 20 0RF (units unknown) (unknown) (unknown) (no date) (unknown) (unknown) 13:07 (units unknown) (unknown) (unknown) (no date) (unknown) (unknown) 20 mg PO TID Q ty: 21 0RF (units unknown) (unknown) (unknown) (no date) (unknown) (unknown) 5 mg PO Q6H OR N (Reason: pain) Qty: 14 0RF (units unknown) (unknown) (unknown) (no date) (unknown) (unknown) 990 (units unknown) (unknown) (unknown) (no date) (unknown) (unknown) Activity Restrictions/Additiona l Instructions: (units unknown) (unknown) (unknown) (no date) (unknown) (unknown) Age/Sex: 47 / M (uni ts unknown) (unknown) (unknown) (no date) (unknown) (unknown) Allergies (units unknown) (unknown) (unknown) (no date) (unknown) (unknown) Allergy/AdvRea c Type Severity Reaction Status Date / Time (units unknown) (unknown) (unknown) (no date) (unknown) (unknown) Blood Pressure 152/108 H 06/07/22 13:07 (units unknown) (unknown) (unknown) (no date) (unknown) (unknown) Blood Pressure 152/108 H (units unknown) (unknown) (unknown) (no date) (unknown) (unknown) CV: regular ra te and rhythm, warm extremities (units unknown) (unknown) (unknown) (no date) (unknown) (unknown) Chief Complain t: Back Pain/Injury (units unknown) (unknown) (unknown) (no date) (unknown) (unknown) Chief Complaint: (un its unknown) (unknown) (unknown) (no date) (unknown) (unknown) Clinical decis ion rules or scores evaluated: (units unknown) (unknown) (unknown) (no date) (unknown) (unknown) Course of care : Patient's pain was treated with Dilaudid, methocarbamol, (units unknown) (unknown) (unknown) (no date) (unknown) (unknown) Course (units unknown) (unknown) (unknown) (no date) (unknown) (unknown) : 5 Acct:[id number] (units unknown) (unknown) (unknown) (no date) (unknown) (unknown) Date of Servic e: 06/07/22 (units unknown) (unknown) (unknown) (no date) (unknown) (unknown) Denies any rad icular pain. No changes in his bowels, he is requesting an MRI as (units unknown) (unknown) (unknown) (no date) (unknown) (unknown) Denies point tenderness, fever, stool changes, unilateral weakness or changes. (units unknown) (unknown) (unknown) (no date) (unknown) (unknown) Departure (units unknown) (unknown) (unknown) (no date) (unknown) (unknown) Differential d iagnoses include but are not limited to: (units unknown) (unknown) (unknown) (no date) (unknown) (unknown) Discharge Plan (unit s unknown) (unknown) (unknown) (no date) (unknown) (unknown) Discontinued Medications (units unknown) (unknown) (unknown) (no date) (unknown) (unknown) Documented By: OW (u nits unknown) (unknown) (unknown) (no date) (unknown) (unknown) ED Orders (units unknown) (unknown) (unknown) (no date) (unknown) (unknown) ER Physician: Sahara Roman (units unknown) (unknown) (unknown) (no date) (unknown) (unknown) Emergency Report (un its unknown) (unknown) (unknown) (no date) (unknown) (unknown) Exam Narrative: (uni ts unknown) (unknown) (unknown) (no date) (unknown) (unknown) Exam (units unknown) (unknown) (unknown) (no date) (unknown) (unknown) GI: abdomen so ft, nondistended, without CVA tenderness bilaterally. (units unknown) (unknown) (unknown) (no date) (unknown) (unknown) General (units unknown) (unknown) (unknown) (no date) (unknown) (unknown) General: Pleas ant, sitting upright, anxious, appears to be in acute distress, (units unknown) (unknown) (unknown) (no date) (unknown) (unknown) HEENT: symmetr ical facial expressions, moist mucous membranes, neck is supple (units unknown) (unknown) (unknown) (no date) (unknown) (unknown) HPI - Back Pain/Inju ry (units unknown) (unknown) (unknown) (no date) (unknown) (unknown) HPI Narrative: (unit s unknown) (unknown) (unknown) (no date) (unknown) (unknown) History of Pre sent Illness (units unknown) (unknown) (unknown) (no date) (unknown) (unknown) Hydromorphone HCl (Hydromorphone 1 Mg Inj) 1 mg IM NOW ONE (units unknown) (unknown) (unknown) (no date) (unknown) (unknown) I have indepen dently reviewed the patient's vital signs and nursing notes as (units unknown) (unknown) (unknown) (no date) (unknown) (unknown) Independent sd storian: Patient (units unknown) (unknown) (unknown) (no date) (unknown) (unknown) Initial Vital Signs (units unknown) (unknown) (unknown) (no date) (unknown) (unknown) Initial Vital Signs: (units unknown) (unknown) (unknown) (no date) (unknown) (unknown) [address] [address] (units unknown) (unknown) (unknown) (no date) (unknown) (unknown) Last Admin: 13:55 Dose: 750 mg (units unknown) (unknown) (unknown) (no date) (unknown) (unknown) Last Admin: 13:56 Dose: 1 each (units unknown) (unknown) (unknown) (no date) (unknown) (unknown) Last Admin: 13:58 Dose: 1 mg (units unknown) (unknown) (unknown) (no date) (unknown) (unknown) Lidocaine (Lid ocaine Patch 1 Each Adh..Patch) 1 each TOP NOW ONE (units unknown) (unknown) (unknown) (no date) (unknown) (unknown) Lyrica for his pain. (units unknown) (unknown) (unknown) (no date) (unknown) (unknown) MDM - Back Pain/Inju ry (units unknown) (unknown) (unknown) (no date) (unknown) (unknown) MDM Narrative (units unknown) (unknown) (unknown) (no date) (unknown) (unknown) MIPS: This enc ounter doesn't have any diagnosis' associated with MIPS criteria. (units unknown) (unknown) (unknown) (no date) (unknown) (unknown) MR lumbar spin e wo con Stat (units unknown) (unknown) (unknown) (no date) (unknown) (unknown) MSK: moves all extremities, no weakness, normal tone, ambulatory without deficit (units unknown) (unknown) (unknown) (no date) (unknown) (unknown) Medical decisi on making narrative: (units unknown) (unknown) (unknown) (no date) (unknown) (unknown) Medication Instructions Recorded (units unknown) (unknown) (unknown) (no date) (unknown) (unknown) Methocarbamol (Methocarbamol 500 Mg Tablet) 750 mg PO NOW ONE (units unknown) (unknown) (unknown) (no date) (unknown) (unknown) Narrative (units unknown) (unknown) (unknown) (no date) (unknown) (unknown) Neuro: normal speech and cognition, A+O x3 (units unknown) (unknown) (unknown) (no date) (unknown) (unknown) No Action (units unknown) (unknown) (unknown) (no date) (unknown) (unknown) No Known Drug Allergies Allergy Verified 09/10/21 16:42 (units unknown) (unknown) (unknown) (no date) (unknown) (unknown) Ordered: (units unknown) (unknown) (unknown) (no date) (unknown) (unknown) Orders (units unknown) (unknown) (unknown) (no date) (unknown) (unknown) Orthopedics on June 13. He denies urinary frequency, urgency, or retention. (units unknown) (unknown) (unknown) (no date) (unknown) (unknown) Oxygen Deliver y Method Room Air 06/07/22 13:07 (units unknown) (unknown) (unknown) (no date) (unknown) (unknown) Oxygen Deliver y Method Room Air (units unknown) (unknown) (unknown) (no date) (unknown) (unknown) Patient History (uni ts unknown) (unknown) (unknown) (no date) (unknown) (unknown) Patient is brenda ropriate for outpatient management. (units unknown) (unknown) (unknown) (no date) (unknown) (unknown) Patient: Kishor Cararsquillo MR#: [id number] (units unknown) (unknown) (unknown) (no date) (unknown) (unknown) Pertinent Imag ing reviewed: MR lumbar spine (units unknown) (unknown) (unknown) (no date) (unknown) (unknown) Pertinent lab findings reviewed: (units unknown) (unknown) (unknown) (no date) (unknown) (unknown) Prescriptions: (unit s unknown) (unknown) (unknown) (no date) (unknown) (unknown) Previous Rx's (units unknown) (unknown) (unknown) (no date) (unknown) (unknown) Pulse Oximetry 97 06/07/22 13:07 (units unknown) (unknown) (unknown) (no date) (unknown) (unknown) Pulse Oximetry 97 (u nits unknown) (unknown) (unknown) (no date) (unknown) (unknown) Pulse Rate 86 06/07/22 13:07 (units unknown) (unknown) (unknown) (no date) (unknown) (unknown) Pulse Rate 86 (units unknown) (unknown) (unknown) (no date) (unknown) (unknown) Questions are addressed and there is agreement with the plan and for follow-up. (units unknown) (unknown) (unknown) (no date) (unknown) (unknown) ROS Unobtainab le: All systems reviewed + are unremarkable except as noted in HPI (units unknown) (unknown) (unknown) (no date) (unknown) (unknown) Related Data (units unknown) (unknown) (unknown) (no date) (unknown) (unknown) Respiratory Ra te 22 06/07/22 13:07 (units unknown) (unknown) (unknown) (no date) (unknown) (unknown) Respiratory Rate 22 (units unknown) (unknown) (unknown) (no date) (unknown) (unknown) Respiratory: n ormal work of breathing, without tachypnea or hypoxia. (units unknown) (unknown) (unknown) (no date) (unknown) (unknown) Review of Systems (u nits unknown) (unknown) (unknown) (no date) (unknown) (unknown) Reviewed vital s signs and nursing notes. (units unknown) (unknown) (unknown) (no date) (unknown) (unknown) Rx Instructions: (un its unknown) (unknown) (unknown) (no date) (unknown) (unknown) See Rx Instruc tions .ROUTE .COMPLEX Qty: 21 0RF (units unknown) (unknown) (unknown) (no date) (unknown) (unknown) Signed By: (units unknown) (unknown) (unknown) (no date) (unknown) (unknown) Skin: brisk ca pillary refill, without rash or wound (units unknown) (unknown) (unknown) (no date) (unknown) (unknown) Smoking Status : Never smoker (units unknown) (unknown) (unknown) (no date) (unknown) (unknown) Social History (units unknown) (unknown) (unknown) (no date) (unknown) (unknown) Social conside rations that may affect disposition: none (units unknown) (unknown) (unknown) (no date) (unknown) (unknown) Source: patient (uni ts unknown) (unknown) (unknown) (no date) (unknown) (unknown) Stated Complai nt: back pain worsening visited t-4 (units unknown) (unknown) (unknown) (no date) (unknown) (unknown) States he had muscle spasms Sunday and Sunday over this weekend but does not (units unknown) (unknown) (unknown) (no date) (unknown) (unknown) Stop: 06/07/22 13:36 (units unknown) (unknown) (unknown) (no date) (unknown) (unknown) Substance Use Type: does not use (units unknown) (unknown) (unknown) (no date) (unknown) (unknown) Temperature 97 .1 F L 06/07/22 13:07 (units unknown) (unknown) (unknown) (no date) (unknown) (unknown) Temperature 97.1 F L (units unknown) (unknown) (unknown) (no date) (unknown) (unknown) This is a 47-y ear-old male with a longstanding history of lumbar issues.?Has had (units unknown) (unknown) (unknown) (no date) (unknown) (unknown) Time Seen by Wesley gann: 06/07/22 13:15 (units unknown) (unknown) (unknown) (no date) (unknown) (unknown) Vital Signs - 8 hr ( units unknown) (unknown) (unknown) (no date) (unknown) (unknown) Vital Signs (units unknown) (unknown) (unknown) (no date) (unknown) (unknown) Vital signs: (units unknown) (unknown) (unknown) (no date) (unknown) (unknown) [ ] New medica tion prescriptions sent to your pharmacy: [ ] (units unknown) (unknown) (unknown) (no date) (unknown) (unknown) [ ] New medica tion written as a paper prescription (units unknown) (unknown) (unknown) (no date) (unknown) (unknown) [ ] No new med ications given (units unknown) (unknown) (unknown) (no date) (unknown) (unknown) a dose pack (Abilio llamas (Adria)) #21 ea (units unknown) (unknown) (unknown) (no date) (unknown) (unknown) ago and states that his pain has not gotten better. He sees Anesis for (units unknown) (unknown) (unknown) (no date) (unknown) (unknown) alcohol intake frequency: 0-2 drinks per day (units unknown) (unknown) (unknown) (no date) (unknown) (unknown) and below (units unknown) (unknown) (unknown) (no date) (unknown) (unknown) appointment. L et them know you were seen in the Emergency Department and that we (units unknown) (unknown) (unknown) (no date) (unknown) (unknown) asked that you be seen for follow-up. We will electronically transmit a record (units unknown) (unknown) (unknown) (no date) (unknown) (unknown) atraumatic. He completed a steroid pack and was prescribed hydrocodone. He (units unknown) (unknown) (unknown) (no date) (unknown) (unknown) baclofen 20 mg tablet 20 mg PO TID #21 tabs 09/10/21 (units unknown) (unknown) (unknown) (no date) (unknown) (unknown) baclofen 20 mg table t (units unknown) (unknown) (unknown) (no date) (unknown) (unknown) complicated pa in management in [place], [place]. He has seen Dr. Umana in (units unknown) (unknown) (unknown) (no date) (unknown) (unknown) concerning sym ptoms, such as [fever greater than 101F, chills, worsening pain, (units unknown) (unknown) (unknown) (no date) (unknown) (unknown) emergency depa rtment 4 days ago and had lumbar spine x-rays without changes. He (units unknown) (unknown) (unknown) (no date) (unknown) (unknown) establish care with one of the [facility] primary care providers. (units unknown) (unknown) (unknown) (no date) (unknown) (unknown) had subjective weakness to the lower extremities but was able to lift his legs (units unknown) (unknown) (unknown) (no date) (unknown) (unknown) have muscle sp asms at this time. Is currently on his steroid pack from 4 days (units unknown) (unknown) (unknown) (no date) (unknown) (unknown) he states that when he slipped a few weeks ago on the deck, he had a twisting (units unknown) (unknown) (unknown) (no date) (unknown) (unknown) hydrocodone 5 mg-acetaminophen 325 1 tab PO Q4-6H PRN pain #10 tabs 06/04/22 (units unknown) (unknown) (unknown) (no date) (unknown) (unknown) hydrocodone 5 mg-acetaminophen 325 1 tab PO Q4-6H PRN pain #20 tabs 05/27/22 (units unknown) (unknown) (unknown) (no date) (unknown) (unknown) hydrocodone-ac etaminop hen 5-325 mg tablet (units unknown) (unknown) (unknown) (no date) (unknown) (unknown) lidocaine patch (uni ts unknown) (unknown) (unknown) (no date) (unknown) (unknown) methylpredniso lone 4 mg tablets in See Rx Instructions PO .COMPLEX 05/27/22 (units unknown) (unknown) (unknown) (no date) (unknown) (unknown) methylpredniso lone 4 mg tablets in See Rx Instructions PO .COMPLEX 06/04/22 (units unknown) (unknown) (unknown) (no date) (unknown) (unknown) methylpredniso lone [Medrol (Adria)] 4 mg tablets,dose pack (units unknown) (unknown) (unknown) (no date) (unknown) (unknown) mg tablet (units unknown) (unknown) (unknown) (no date) (unknown) (unknown) motion and fee ls like something is wrong because it is so painful. He takes (units unknown) (unknown) (unknown) (no date) (unknown) (unknown) multiple surge andria in the past.?Has hardware in place.? He was here in the (units unknown) (unknown) (unknown) (no date) (unknown) (unknown) no focal weakn ess, nontender to his lumbar spine, paraspinal musculature is (units unknown) (unknown) (unknown) (no date) (unknown) (unknown) of today's not e if your PCP is in our system (units unknown) (unknown) (unknown) (no date) (unknown) (unknown) orally per pac kage directions (units unknown) (unknown) (unknown) (no date) (unknown) (unknown) oxycodone 5 mg tablet 5 mg PO Q6H PRN pain #14 tabs 03/09/22 (units unknown) (unknown) (unknown) (no date) (unknown) (unknown) oxycodone 5 mg table t (units unknown) (unknown) (unknown) (no date) (unknown) (unknown) persistent vom iting or other bothersome symptoms]. (units unknown) (unknown) (unknown) (no date) (unknown) (unknown) states that he is having a pain crisis, states it is just in his low back. (units unknown) (unknown) (unknown) (no date) (unknown) (unknown) tense (units unknown) (unknown) (unknown) (no date) (unknown) (unknown) the past, Dr. Baldwin from [facility], and is scheduled to see Dr. Charles with [facility] (units unknown) (unknown) (unknown) (no date) (unknown) (unknown) up off the bed . X-rays did not show acute pathology at the time and hardware (units unknown) (unknown) (unknown) (no date) (unknown) (unknown) was in place. Did not have urinary symptoms or bowel changes and was (units unknown) (unknown) (unknown) (no date) (unknown) (unknown) well as prior records if available. (units unknown) (unknown) (unknown) (no date) (unknown) (unknown) well groomed, afebri le (units unknown) (unknown) Result panel 11 (unknown) (no date) (unknown) (unknown) (no value) (units unknown) (unknown) (unknown) (no date) (unknown) (unknown) *If you do not have a primary care provider please contact [phone] to (units unknown) (unknown) (unknown) (no date) (unknown) (unknown) *Please contin ue to take your regular medications as directed. (units unknown) (unknown) (unknown) (no date) (unknown) (unknown) *Please follow up with your primary care provider in 2-3 days, call for an (units unknown) (unknown) (unknown) (no date) (unknown) (unknown) *Return to Dea rgency Department if you should have any new, worsening, or (units unknown) (unknown) (unknown) (no date) (unknown) (unknown) *What to do: (units unknown) (unknown) (unknown) (no date) (unknown) (unknown) *You have been diagnosed with [ ] (units unknown) (unknown) (unknown) (no date) (unknown) (unknown) 06/07/22 13:35 (unit s unknown) (unknown) (unknown) (no date) (unknown) (unknown) 06/07/22 (units unknown) (unknown) (unknown) (no date) (unknown) (unknown) 1 tab PO Q4-6H PRN (Reason: pain) Qty: 10 0RF (units unknown) (unknown) (unknown) (no date) (unknown) (unknown) 1 tab PO Q4-6H PRN (Reason: pain) Qty: 20 0RF (units unknown) (unknown) (unknown) (no date) (unknown) (unknown) 13:07 (units unknown) (unknown) (unknown) (no date) (unknown) (unknown) 1444, patient is currently an MRI receiving his MR scan. Ordered pain pill for (units unknown) (unknown) (unknown) (no date) (unknown) (unknown) 20 mg PO TID Q ty: 21 0RF (units unknown) (unknown) (unknown) (no date) (unknown) (unknown) 5 mg PO Q6H OR N (Reason: pain) Qty: 14 0RF (units unknown) (unknown) (unknown) (no date) (unknown) (unknown) 990 (units unknown) (unknown) (unknown) (no date) (unknown) (unknown) Activity Restrictions/Additiona l Instructions: (units unknown) (unknown) (unknown) (no date) (unknown) (unknown) Age/Sex: 47 / M (uni ts unknown) (unknown) (unknown) (no date) (unknown) (unknown) Allergies (units unknown) (unknown) (unknown) (no date) (unknown) (unknown) Allergy/AdvRea c Type Severity Reaction Status Date / Time (units unknown) (unknown) (unknown) (no date) (unknown) (unknown) Blood Pressure 152/108 H 06/07/22 13:07 (units unknown) (unknown) (unknown) (no date) (unknown) (unknown) Blood Pressure 152/108 H (units unknown) (unknown) (unknown) (no date) (unknown) (unknown) CV: regular ra te and rhythm, warm extremities (units unknown) (unknown) (unknown) (no date) (unknown) (unknown) Chief Complain t: Back Pain/Injury (units unknown) (unknown) (unknown) (no date) (unknown) (unknown) Chief Complaint: (un its unknown) (unknown) (unknown) (no date) (unknown) (unknown) Clinical Impression: (units unknown) (unknown) (unknown) (no date) (unknown) (unknown) Clinical decis ion rules or scores evaluated: (units unknown) (unknown) (unknown) (no date) (unknown) (unknown) Course of care : Patient's pain was treated with Dilaudid, methocarbamol, (units unknown) (unknown) (unknown) (no date) (unknown) (unknown) Course (units unknown) (unknown) (unknown) (no date) (unknown) (unknown) : 5 Acct:[id number] (units unknown) (unknown) (unknown) (no date) (unknown) (unknown) Date of Servic e: 06/07/22 (units unknown) (unknown) (unknown) (no date) (unknown) (unknown) Denies any rad icular pain. No changes in his bowels, he is requesting an MRI as (units unknown) (unknown) (unknown) (no date) (unknown) (unknown) Denies point tenderness, fever, stool changes, unilateral weakness or changes. (units unknown) (unknown) (unknown) (no date) (unknown) (unknown) Departure (units unknown) (unknown) (unknown) (no date) (unknown) (unknown) Differential d iagnoses include but are not limited to: Hardware malfunction, (units unknown) (unknown) (unknown) (no date) (unknown) (unknown) Discharge Plan (unit s unknown) (unknown) (unknown) (no date) (unknown) (unknown) Discontinued Medications (units unknown) (unknown) (unknown) (no date) (unknown) (unknown) Documented By: OW (u nits unknown) (unknown) (unknown) (no date) (unknown) (unknown) ED Orders (units unknown) (unknown) (unknown) (no date) (unknown) (unknown) ER Physician: Crew[facility]ara (units unknown) (unknown) (unknown) (no date) (unknown) (unknown) Emergency Report (un its unknown) (unknown) (unknown) (no date) (unknown) (unknown) Exam Narrative: (uni ts unknown) (unknown) (unknown) (no date) (unknown) (unknown) Exam (units unknown) (unknown) (unknown) (no date) (unknown) (unknown) GI: abdomen so ft, nondistended, without CVA tenderness bilaterally. (units unknown) (unknown) (unknown) (no date) (unknown) (unknown) General (units unknown) (unknown) (unknown) (no date) (unknown) (unknown) General: Pleas ant, sitting upright, anxious, appears to be in acute distress, (units unknown) (unknown) (unknown) (no date) (unknown) (unknown) HEENT: symmetr ical facial expressions, moist mucous membranes, neck is supple (units unknown) (unknown) (unknown) (no date) (unknown) (unknown) HPI - Back Pain/Inju ry (units unknown) (unknown) (unknown) (no date) (unknown) (unknown) HPI Narrative: (unit s unknown) (unknown) (unknown) (no date) (unknown) (unknown) History of Pre sent Illness (units unknown) (unknown) (unknown) (no date) (unknown) (unknown) Hydromorphone HCl (Hydromorphone 1 Mg Inj) 1 mg IM NOW ONE (units unknown) (unknown) (unknown) (no date) (unknown) (unknown) I have romi callejasly reviewed the patient's vital signs and nursing notes as (units unknown) (unknown) (unknown) (no date) (unknown) (unknown) Independent hi storian: Patient (units unknown) (unknown) (unknown) (no date) (unknown) (unknown) Initial Vital Signs (units unknown) (unknown) (unknown) (no date) (unknown) (unknown) Initial Vital Signs: (units unknown) (unknown) (unknown) (no date) (unknown) (unknown) Instructions: DI for Low Back Pain (units unknown) (unknown) (unknown) (no date) (unknown) (unknown) [address] [address] (units unknown) (unknown) (unknown) (no date) (unknown) (unknown) Last Admin: 13:55 Dose: 750 mg (units unknown) (unknown) (unknown) (no date) (unknown) (unknown) Last Admin: 13:56 Dose: 1 each (units unknown) (unknown) (unknown) (no date) (unknown) (unknown) Last Admin: 13:58 Dose: 1 mg (units unknown) (unknown) (unknown) (no date) (unknown) (unknown) Lidocaine (Lid ocaine Patch 1 Each Adh..Patch) 1 each TOP NOW ONE (units unknown) (unknown) (unknown) (no date) (unknown) (unknown) Loraine Charles MD [Physician] (units unknown) (unknown) (unknown) (no date) (unknown) (unknown) Lumbar back pain (un its unknown) (unknown) (unknown) (no date) (unknown) (unknown) Lyrica for his pain. (units unknown) (unknown) (unknown) (no date) (unknown) (unknown) MDM - Back Pain/Inju ry (units unknown) (unknown) (unknown) (no date) (unknown) (unknown) MDM Narrative (units unknown) (unknown) (unknown) (no date) (unknown) (unknown) MIPS: This enc ounter doesn't have any diagnosis' associated with MIPS criteria. (units unknown) (unknown) (unknown) (no date) (unknown) (unknown) MR lumbar spin e wo con Stat (units unknown) (unknown) (unknown) (no date) (unknown) (unknown) MSK: moves all extremities, no weakness, normal tone, ambulatory without deficit (units unknown) (unknown) (unknown) (no date) (unknown) (unknown) Medical decisi on making narrative: (units unknown) (unknown) (unknown) (no date) (unknown) (unknown) Medication Instructions Recorded (units unknown) (unknown) (unknown) (no date) (unknown) (unknown) Methocarbamol (Methocarbamol 500 Mg Tablet) 750 mg PO NOW ONE (units unknown) (unknown) (unknown) (no date) (unknown) (unknown) Alexander Danielle MD [Physician] (units unknown) (unknown) (unknown) (no date) (unknown) (unknown) Narrative (units unknown) (unknown) (unknown) (no date) (unknown) (unknown) Neuro: normal speech and cognition, A+O x3 (units unknown) (unknown) (unknown) (no date) (unknown) (unknown) No Action (units unknown) (unknown) (unknown) (no date) (unknown) (unknown) No Known Drug Allergies Allergy Verified 09/10/21 16:42 (units unknown) (unknown) (unknown) (no date) (unknown) (unknown) Ordered: (units unknown) (unknown) (unknown) (no date) (unknown) (unknown) Orders (units unknown) (unknown) (unknown) (no date) (unknown) (unknown) Orthopedics on June 13. He denies urinary frequency, urgency, or retention. (units unknown) (unknown) (unknown) (no date) (unknown) (unknown) Oxycodone/Acet aminophe n (Oxycodone/Acetaminoph en 5/325 Tablet) 1 tab PO NOW ONE (units unknown) (unknown) (unknown) (no date) (unknown) (unknown) Oxygen Deliver y Method Room Air 06/07/22 13:07 (units unknown) (unknown) (unknown) (no date) (unknown) (unknown) Oxygen Deliver y Method Room Air (units unknown) (unknown) (unknown) (no date) (unknown) (unknown) Patient Dispos ition: Home (units unknown) (unknown) (unknown) (no date) (unknown) (unknown) Patient History (uni ts unknown) (unknown) (unknown) (no date) (unknown) (unknown) Patient is brenda ropriate for outpatient management. (units unknown) (unknown) (unknown) (no date) (unknown) (unknown) Patient: Kishor Carrasquillo MR#: [id number] (units unknown) (unknown) (unknown) (no date) (unknown) (unknown) Pertinent Imag ing reviewed: MR lumbar spine (units unknown) (unknown) (unknown) (no date) (unknown) (unknown) Prescriptions: (unit s unknown) (unknown) (unknown) (no date) (unknown) (unknown) Previous Rx's (units unknown) (unknown) (unknown) (no date) (unknown) (unknown) [facility] [Provider Group] (units unknown) (unknown) (unknown) (no date) (unknown) (unknown) Pulse Oximetry 97 06/07/22 13:07 (units unknown) (unknown) (unknown) (no date) (unknown) (unknown) Pulse Oximetry 97 (u nits unknown) (unknown) (unknown) (no date) (unknown) (unknown) Pulse Rate 86 06/07/22 13:07 (units unknown) (unknown) (unknown) (no date) (unknown) (unknown) Pulse Rate 86 (units unknown) (unknown) (unknown) (no date) (unknown) (unknown) Questions are addressed and there is agreement with the plan and for follow-up. (units unknown) (unknown) (unknown) (no date) (unknown) (unknown) ROS Unobtainab le: All systems reviewed + are unremarkable except as noted in HPI (units unknown) (unknown) (unknown) (no date) (unknown) (unknown) Referrals: (units unknown) (unknown) (unknown) (no date) (unknown) (unknown) Related Data (units unknown) (unknown) (unknown) (no date) (unknown) (unknown) Respiratory Ra te 22 06/07/22 13:07 (units unknown) (unknown) (unknown) (no date) (unknown) (unknown) Respiratory Rate 22 (units unknown) (unknown) (unknown) (no date) (unknown) (unknown) Respiratory: n ormal work of breathing, without tachypnea or hypoxia. (units unknown) (unknown) (unknown) (no date) (unknown) (unknown) Review of Systems (u nits unknown) (unknown) (unknown) (no date) (unknown) (unknown) Reviewed vital s signs and nursing notes. (units unknown) (unknown) (unknown) (no date) (unknown) (unknown) Rx Instructions: (un its unknown) (unknown) (unknown) (no date) (unknown) (unknown) See Rx Instruc tions .ROUTE .COMPLEX Qty: 21 0RF (units unknown) (unknown) (unknown) (no date) (unknown) (unknown) Signed By: (units unknown) (unknown) (unknown) (no date) (unknown) (unknown) Skin: brisk ca pillary refill, without rash or wound (units unknown) (unknown) (unknown) (no date) (unknown) (unknown) Smoking Status : Never smoker (units unknown) (unknown) (unknown) (no date) (unknown) (unknown) Social History (units unknown) (unknown) (unknown) (no date) (unknown) (unknown) Social conside rations that may affect disposition: none (units unknown) (unknown) (unknown) (no date) (unknown) (unknown) Source: patient (uni ts unknown) (unknown) (unknown) (no date) (unknown) (unknown) Stand Alone Fo lorraine: Patient Portal/API (units unknown) (unknown) (unknown) (no date) (unknown) (unknown) Stated Complai nt: back pain worsening visited t-4 (units unknown) (unknown) (unknown) (no date) (unknown) (unknown) States he had muscle spasms Sunday and Sunday over this weekend but does not (units unknown) (unknown) (unknown) (no date) (unknown) (unknown) Stop: 06/07/22 13:36 (units unknown) (unknown) (unknown) (no date) (unknown) (unknown) Stop: 06/07/22 14:39 (units unknown) (unknown) (unknown) (no date) (unknown) (unknown) Substance Use Type: does not use (units unknown) (unknown) (unknown) (no date) (unknown) (unknown) Temperature 97 .1 F L 06/07/22 13:07 (units unknown) (unknown) (unknown) (no date) (unknown) (unknown) Temperature 97.1 F L (units unknown) (unknown) (unknown) (no date) (unknown) (unknown) This is a 47-y ear-old male with a longstanding history of lumbar issues.?Has had (units unknown) (unknown) (unknown) (no date) (unknown) (unknown) Time Seen by Wesley gann: 06/07/22 13:15 (units unknown) (unknown) (unknown) (no date) (unknown) (unknown) Vital Signs - 8 hr ( units unknown) (unknown) (unknown) (no date) (unknown) (unknown) Vital Signs (units unknown) (unknown) (unknown) (no date) (unknown) (unknown) Vital signs: (units unknown) (unknown) (unknown) (no date) (unknown) (unknown) [ ] New medica tion prescriptions sent to your pharmacy: [ ] (units unknown) (unknown) (unknown) (no date) (unknown) (unknown) [ ] New medica tion written as a paper prescription (units unknown) (unknown) (unknown) (no date) (unknown) (unknown) [ ] No new med ications given (units unknown) (unknown) (unknown) (no date) (unknown) (unknown) a dose pack (Abilio llamas (Adria)) #21 ea (units unknown) (unknown) (unknown) (no date) (unknown) (unknown) additional [place] (units unknown) (unknown) (unknown) (no date) (unknown) (unknown) ago and states that his pain has not gotten better. He sees [facility] for (units unknown) (unknown) (unknown) (no date) (unknown) (unknown) alcohol intake frequency: 0-2 drinks per day (units unknown) (unknown) (unknown) (no date) (unknown) (unknown) and below (units unknown) (unknown) (unknown) (no date) (unknown) (unknown) appointment. L et them know you were seen in the Emergency Department and that we (units unknown) (unknown) (unknown) (no date) (unknown) (unknown) asked that you be seen for follow-up. We will electronically transmit a record (units unknown) (unknown) (unknown) (no date) (unknown) (unknown) atraumatic. He completed a steroid pack and was prescribed hydrocodone. He (units unknown) (unknown) (unknown) (no date) (unknown) (unknown) baclofen 20 mg tablet 20 mg PO TID #21 tabs 09/10/21 (units unknown) (unknown) (unknown) (no date) (unknown) (unknown) baclofen 20 mg table t (units unknown) (unknown) (unknown) (no date) (unknown) (unknown) cauda equina, epidural hematoma, ligamental injury, strain/sprain, muscular (units unknown) (unknown) (unknown) (no date) (unknown) (unknown) complicated pa in management in [place], [place]. He has seen Dr. Umana in (units unknown) (unknown) (unknown) (no date) (unknown) (unknown) concerning sym ptoms, such as [fever greater than 101F, chills, worsening pain, (units unknown) (unknown) (unknown) (no date) (unknown) (unknown) emergency depa rtment 4 days ago and had lumbar spine x-rays without changes. He (units unknown) (unknown) (unknown) (no date) (unknown) (unknown) establish care with one of the [facility] primary care providers. (units unknown) (unknown) (unknown) (no date) (unknown) (unknown) had subjective weakness to the lower extremities but was able to lift his legs (units unknown) (unknown) (unknown) (no date) (unknown) (unknown) have muscle sp asms at this time. Is currently on his steroid pack from 4 days (units unknown) (unknown) (unknown) (no date) (unknown) (unknown) he states that when he slipped a few weeks ago on the deck, he had a twisting (units unknown) (unknown) (unknown) (no date) (unknown) (unknown) hydrocodone 5 mg-acetaminophen 325 1 tab PO Q4-6H PRN pain #10 tabs 06/04/22 (units unknown) (unknown) (unknown) (no date) (unknown) (unknown) hydrocodone 5 mg-acetaminophen 325 1 tab PO Q4-6H PRN pain #20 tabs 05/27/22 (units unknown) (unknown) (unknown) (no date) (unknown) (unknown) hydrocodone-ac etaminop hen 5-325 mg tablet (units unknown) (unknown) (unknown) (no date) (unknown) (unknown) lidocaine patch (uni ts unknown) (unknown) (unknown) (no date) (unknown) (unknown) methylpredniso lone 4 mg tablets in See Rx Instructions PO .COMPLEX 05/27/22 (units unknown) (unknown) (unknown) (no date) (unknown) (unknown) methylpredniso lone 4 mg tablets in See Rx Instructions PO .COMPLEX 06/04/22 (units unknown) (unknown) (unknown) (no date) (unknown) (unknown) methylpredniso lone [Medrol (Adria)] 4 mg tablets,dose pack (units unknown) (unknown) (unknown) (no date) (unknown) (unknown) mg tablet (units unknown) (unknown) (unknown) (no date) (unknown) (unknown) motion and fee ls like something is wrong because it is so painful. He takes (units unknown) (unknown) (unknown) (no date) (unknown) (unknown) multiple surge andria in the past.?Has hardware in place.? He was here in the (units unknown) (unknown) (unknown) (no date) (unknown) (unknown) no focal weakn ess, nontender to his lumbar spine, paraspinal musculature is (units unknown) (unknown) (unknown) (no date) (unknown) (unknown) of today's not e if your PCP is in our system (units unknown) (unknown) (unknown) (no date) (unknown) (unknown) orally per pac kage directions (units unknown) (unknown) (unknown) (no date) (unknown) (unknown) oxycodone 5 mg tablet 5 mg PO Q6H PRN pain #14 tabs 03/09/22 (units unknown) (unknown) (unknown) (no date) (unknown) (unknown) oxycodone 5 mg table t (units unknown) (unknown) (unknown) (no date) (unknown) (unknown) persistent vom iting or other bothersome symptoms]. (units unknown) (unknown) (unknown) (no date) (unknown) (unknown) spasm, radicul ar pain, spinal stenosis, osteoarthritis (units unknown) (unknown) (unknown) (no date) (unknown) (unknown) states that he is having a pain crisis, states it is just in his low back. (units unknown) (unknown) (unknown) (no date) (unknown) (unknown) tense (units unknown) (unknown) (unknown) (no date) (unknown) (unknown) the past, Dr. Baldwin from [facility], and is scheduled to see Dr. Charles with [facility] (units unknown) (unknown) (unknown) (no date) (unknown) (unknown) up off the bed . X-rays did not show acute pathology at the time and hardware (units unknown) (unknown) (unknown) (no date) (unknown) (unknown) was in place. Did not have urinary symptoms or bowel changes and was (units unknown) (unknown) (unknown) (no date) (unknown) (unknown) well as prior records if available. (units unknown) (unknown) (unknown) (no date) (unknown) (unknown) well groomed, afebri le (units unknown) (unknown) Result panel 12 (unknown) (no date) (unknown) (unknown) (no value) (units unknown) (unknown) (unknown) (no date) (unknown) (unknown) (Lidoderm) (units unknown) (unknown) (unknown) (no date) (unknown) (unknown) (RA) (units unknown) (unknown) (unknown) (no date) (unknown) (unknown) *If you do not have a primary care provider please contact [phone] to (units unknown) (unknown) (unknown) (no date) (unknown) (unknown) *Please contin ue to take your regular medications as directed. (units unknown) (unknown) (unknown) (no date) (unknown) (unknown) *Please follow up with your primary care provider in 2-3 days, call for an (units unknown) (unknown) (unknown) (no date) (unknown) (unknown) *[facility] should have any new, worsening, or (units unknown) (unknown) (unknown) (no date) (unknown) (unknown) *What to do: (units unknown) (unknown) (unknown) (no date) (unknown) (unknown) *You have been diagnosed with low back pain related to the chronic degenerative (units unknown) (unknown) (unknown) (no date) (unknown) (unknown) +FLU A (units unknown) (unknown) (unknown) (no date) (unknown) (unknown) - UA (units unknown) (unknown) (unknown) (no date) (unknown) (unknown) -to-moderate b ilateral foraminal stenosis (units unknown) (unknown) (unknown) (no date) (unknown) (unknown) 06/06/22 20:17? (uni ts unknown) (unknown) (unknown) (no date) (unknown) (unknown) 06/06/22 20:30? (uni ts unknown) (unknown) (unknown) (no date) (unknown) (unknown) 06/07/22 09:15? (uni ts unknown) (unknown) (unknown) (no date) (unknown) (unknown) 06/07/22 10:44? (uni ts unknown) (unknown) (unknown) (no date) (unknown) (unknown) 06/07/22 10:56? (uni ts unknown) (unknown) (unknown) (no date) (unknown) (unknown) 06/07/22 11:12? (uni ts unknown) (unknown) (unknown) (no date) (unknown) (unknown) 06/07/22 11:48? (uni ts unknown) (unknown) (unknown) (no date) (unknown) (unknown) 06/07/22 13:15? (uni ts unknown) (unknown) (unknown) (no date) (unknown) (unknown) 06/07/22 13:35 (unit s unknown) (unknown) (unknown) (no date) (unknown) (unknown) 06/07/22 13:35? (uni ts unknown) (unknown) (unknown) (no date) (unknown) (unknown) 06/07/22 13:57? (uni ts unknown) (unknown) (unknown) (no date) (unknown) (unknown) 06/07/22 14:00? (uni ts unknown) (unknown) (unknown) (no date) (unknown) (unknown) 06/07/22 14:09? (uni ts unknown) (unknown) (unknown) (no date) (unknown) (unknown) 06/07/22 14:54? (uni ts unknown) (unknown) (unknown) (no date) (unknown) (unknown) 06/07/22 (units unknown) (unknown) (unknown) (no date) (unknown) (unknown) 1 patch topica l DAILY Qty: 30 0RF (units unknown) (unknown) (unknown) (no date) (unknown) (unknown) 1 tab PO Q4-6H PRN (Reason: pain) Qty: 10 0RF (units unknown) (unknown) (unknown) (no date) (unknown) (unknown) 1 tab PO Q4-6H PRN (Reason: pain) Qty: 20 0RF (units unknown) (unknown) (unknown) (no date) (unknown) (unknown) 1 tab PO Q6H P RN (Reason: pain) Qty: 14 0RF (units unknown) (unknown) (unknown) (no date) (unknown) (unknown) 100% (units unknown) (unknown) (unknown) (no date) (unknown) (unknown) 108/73 (units unknown) (unknown) (unknown) (no date) (unknown) (unknown) 109 (units unknown) (unknown) (unknown) (no date) (unknown) (unknown) 109/59 (units unknown) (unknown) (unknown) (no date) (unknown) (unknown) 110/59 (units unknown) (unknown) (unknown) (no date) (unknown) (unknown) 119/58 (units unknown) (unknown) (unknown) (no date) (unknown) (unknown) 12 F? (units unknown) (unknown) (unknown) (no date) (unknown) (unknown) 12 M? (units unknown) (unknown) (unknown) (no date) (unknown) (unknown) [address] (un its unknown) (unknown) (unknown) (no date) (unknown) (unknown) 124/54 (units unknown) (unknown) (unknown) (no date) (unknown) (unknown) 129/64 (units unknown) (unknown) (unknown) (no date) (unknown) (unknown) 13:07 (units unknown) (unknown) (unknown) (no date) (unknown) (unknown) 14 M? (units unknown) (unknown) (unknown) (no date) (unknown) (unknown) 14 (units unknown) (unknown) (unknown) (no date) (unknown) (unknown) 1444, patient is currently an MRI receiving his MR scan. Ordered pain pill for (units unknown) (unknown) (unknown) (no date) (unknown) (unknown) 152/108 (units unknown) (unknown) (unknown) (no date) (unknown) (unknown) 156/76 (units unknown) (unknown) (unknown) (no date) (unknown) (unknown) 16 (units unknown) (unknown) (unknown) (no date) (unknown) (unknown) 178/86 (units unknown) (unknown) (unknown) (no date) (unknown) (unknown) 179/82 (units unknown) (unknown) (unknown) (no date) (unknown) (unknown) 18 (units unknown) (unknown) (unknown) (no date) (unknown) (unknown) 182/89 (units unknown) (unknown) (unknown) (no date) (unknown) (unknown) 19h 28m? (units unknown) (unknown) (unknown) (no date) (unknown) (unknown) 19h 58m? (units unknown) (unknown) (unknown) (no date) (unknown) (unknown) 19m? (units unknown) (unknown) (unknown) (no date) (unknown) (unknown) 1h 17m? (units unknown) (unknown) (unknown) (no date) (unknown) (unknown) 2-Emergent? (units unknown) (unknown) (unknown) (no date) (unknown) (unknown) 20 mg PO TID Q ty: 21 0RF (units unknown) (unknown) (unknown) (no date) (unknown) (unknown) 20 (units unknown) (unknown) (unknown) (no date) (unknown) (unknown) 21 (units unknown) (unknown) (unknown) (no date) (unknown) (unknown) 22 (units unknown) (unknown) (unknown) (no date) (unknown) (unknown) 2h 12m? (units unknown) (unknown) (unknown) (no date) (unknown) (unknown) 2h 41m? (units unknown) (unknown) (unknown) (no date) (unknown) (unknown) 2h 48m? (units unknown) (unknown) (unknown) (no date) (unknown) (unknown) 2h 58m? (units unknown) (unknown) (unknown) (no date) (unknown) (unknown) 3-Urgent? (units unknown) (unknown) (unknown) (no date) (unknown) (unknown) 30 F? (units unknown) (unknown) (unknown) (no date) (unknown) (unknown) 36 F? (units unknown) (unknown) (unknown) (no date) (unknown) (unknown) 3A? (units unknown) (unknown) (unknown) (no date) (unknown) (unknown) 3D? (units unknown) (unknown) (unknown) (no date) (unknown) (unknown) 3h 10m? (units unknown) (unknown) (unknown) (no date) (unknown) (unknown) 3h 55m? (units unknown) (unknown) (unknown) (no date) (unknown) (unknown) 4-Less Urgent? (unit s unknown) (unknown) (unknown) (no date) (unknown) (unknown) 40 mg PO DAILY 5 Days Qty: 10 0RF (units unknown) (unknown) (unknown) (no date) (unknown) (unknown) 48 M? (units unknown) (unknown) (unknown) (no date) (unknown) (unknown) 4h 40m? (units unknown) (unknown) (unknown) (no date) (unknown) (unknown) 4h 52m? (units unknown) (unknown) (unknown) (no date) (unknown) (unknown) 5 M? (units unknown) (unknown) (unknown) (no date) (unknown) (unknown) 5 mg PO Q6H OR N (Reason: pain) Qty: 14 0RF (units unknown) (unknown) (unknown) (no date) (unknown) (unknown) 5h 10m? (units unknown) (unknown) (unknown) (no date) (unknown) (unknown) 62 (units unknown) (unknown) (unknown) (no date) (unknown) (unknown) 66 M? (units unknown) (unknown) (unknown) (no date) (unknown) (unknown) 66 (units unknown) (unknown) (unknown) (no date) (unknown) (unknown) 67 (units unknown) (unknown) (unknown) (no date) (unknown) (unknown) 68 F? (units unknown) (unknown) (unknown) (no date) (unknown) (unknown) 68 M? (units unknown) (unknown) (unknown) (no date) (unknown) (unknown) 68 (units unknown) (unknown) (unknown) (no date) (unknown) (unknown) 69 (units unknown) (unknown) (unknown) (no date) (unknown) (unknown) 6h 36m? (units unknown) (unknown) (unknown) (no date) (unknown) (unknown) 70 M? (units unknown) (unknown) (unknown) (no date) (unknown) (unknown) 74 (units unknown) (unknown) (unknown) (no date) (unknown) (unknown) 750 mg PO Q8H PRN (Reason: muscle pain) Qty: 30 0RF (units unknown) (unknown) (unknown) (no date) (unknown) (unknown) 76 M? (units unknown) (unknown) (unknown) (no date) (unknown) (unknown) 77 M? (units unknown) (unknown) (unknown) (no date) (unknown) (unknown) 79 (units unknown) (unknown) (unknown) (no date) (unknown) (unknown) 80 (units unknown) (unknown) (unknown) (no date) (unknown) (unknown) 86 (units unknown) (unknown) (unknown) (no date) (unknown) (unknown) 87 (units unknown) (unknown) (unknown) (no date) (unknown) (unknown) 90 M? (units unknown) (unknown) (unknown) (no date) (unknown) (unknown) 91 (units unknown) (unknown) (unknown) (no date) (unknown) (unknown) 96% (units unknown) (unknown) (unknown) (no date) (unknown) (unknown) 97% (units unknown) (unknown) (unknown) (no date) (unknown) (unknown) 97.1 F (units unknown) (unknown) (unknown) (no date) (unknown) (unknown) 97.4 F (units unknown) (unknown) (unknown) (no date) (unknown) (unknown) 98% (units unknown) (unknown) (unknown) (no date) (unknown) (unknown) 98.7 F (units unknown) (unknown) (unknown) (no date) (unknown) (unknown) 99 F (units unknown) (unknown) (unknown) (no date) (unknown) (unknown) 99% (units unknown) (unknown) (unknown) (no date) (unknown) (unknown) 99.3 F (units unknown) (unknown) (unknown) (no date) (unknown) (unknown) 990 (units unknown) (unknown) (unknown) (no date) (unknown) (unknown) ? (units unknown) (unknown) (unknown) (no date) (unknown) (unknown) ?0? (units unknown) (unknown) (unknown) (no date) (unknown) (unknown) ?14? (units unknown) (unknown) (unknown) (no date) (unknown) (unknown) ?1? (units unknown) (unknown) (unknown) (no date) (unknown) (unknown) ?3? (units unknown) (unknown) (unknown) (no date) (unknown) (unknown) ?? (units unknown) (unknown) (unknown) (no date) (unknown) (unknown) ? (units unknown) (unknown) (unknown) (no date) (unknown) (unknown) ?Chem (units unknown) (unknown) (unknown) (no date) (unknown) (unknown) ?Complete B... (unit s unknown) (unknown) (unknown) (no date) (unknown) (unknown) ?Covid-19 +... (unit s unknown) (unknown) (unknown) (no date) (unknown) (unknown) ?D [address] [facility]... (unit s unknown) (unknown) (unknown) (no date) (unknown) (unknown) ?NT-proBNP ... (unit s unknown) (unknown) (unknown) (no date) (unknown) (unknown) ?Prothrombi... (unit s unknown) (unknown) (unknown) (no date) (unknown) (unknown) ?Sodium Uri... (unit s unknown) (unknown) (unknown) (no date) (unknown) (unknown) ?Troponin +... (unit s unknown) (unknown) (unknown) (no date) (unknown) (unknown) ?Urinalysis... (unit s unknown) (unknown) (unknown) (no date) (unknown) (unknown) ?Urine Micr... (unit s unknown) (unknown) (unknown) (no date) (unknown) (unknown) ACTIVITY DATE (units unknown) (unknown) (unknown) (no date) (unknown) (unknown) ADM NATO? (units unknown) (unknown) (unknown) (no date) (unknown) (unknown) AUTHOR (units unknown) (unknown) (unknown) (no date) (unknown) (unknown) Abdominal Pain? (uni ts unknown) (unknown) (unknown) (no date) (unknown) (unknown) Accession Numb er: [id number] ?? (units unknown) (unknown) (unknown) (no date) (unknown) (unknown) Acct:[id number] (uni ts unknown) (unknown) (unknown) (no date) (unknown) (unknown) Acetaminop... (units unknown) (unknown) (unknown) (no date) (unknown) (unknown) Activity Restrictions/Additiona l Instructions: (units unknown) (unknown) (unknown) (no date) (unknown) (unknown) [facility] (units unknown) (unknown) (unknown) (no date) (unknown) (unknown) Admitted Patient? (u nits unknown) (unknown) (unknown) (no date) (unknown) (unknown) Age/Sex: 47 / M (uni ts unknown) (unknown) (unknown) (no date) (unknown) (unknown) Alignment and Curvature:? There is normal bony alignment.? (units unknown) (unknown) (unknown) (no date) (unknown) (unknown) Allergies (units unknown) (unknown) (unknown) (no date) (unknown) (unknown) Allergy/Adv: N o Known Drug Allergies (units unknown) (unknown) (unknown) (no date) (unknown) (unknown) Allergy/AdvRea c Type Severity Reaction Status Date / Time (units unknown) (unknown) (unknown) (no date) (unknown) (unknown) [place] [address] (units unknown) (unknown) (unknown) (no date) (unknown) (unknown) Walker? (units unknown) (unknown) (unknown) (no date) (unknown) (unknown) Approved by: Vale Aden M.D. on 06/07/2022 at 14:37? (units unknown) (unknown) (unknown) (no date) (unknown) (unknown) Asking for pain meds (: (units unknown) (unknown) (unknown) (no date) (unknown) (unknown) BLS GLF Past night? (units unknown) (unknown) (unknown) (no date) (unknown) (unknown) BP (units unknown) (unknown) (unknown) (no date) (unknown) (unknown) Back Pain/Injury? (u nits unknown) (unknown) (unknown) (no date) (unknown) (unknown) Patten? (units unknown) (unknown) (unknown) (no date) (unknown) (unknown) Outlook? (units unknown) (unknown) (unknown) (no date) (unknown) (unknown) Blood Pressure 152/108 H 06/07/22 13:07 (units unknown) (unknown) (unknown) (no date) (unknown) (unknown) Blood Pressure 152/108 H (units unknown) (unknown) (unknown) (no date) (unknown) (unknown) Bone Marrow:? Wedge-shaped compression fracture T12 without marrow edema or (units unknown) (unknown) (unknown) (no date) (unknown) (unknown) Fina S (units unknown) (unknown) (unknown) (no date) (unknown) (unknown) C-Reactive... (units unknown) (unknown) (unknown) (no date) (unknown) (unknown) C19S/S? (units unknown) (unknown) (unknown) (no date) (unknown) (unknown) COMPARISON:? [facility], MR, MR LUMBAR SPINE WO CON, 03/09/2022, 20:09. (units unknown) (unknown) (unknown) (no date) (unknown) (unknown) COVID NEGATIVE 06/07 (units unknown) (unknown) (unknown) (no date) (unknown) (unknown) COVID19 -N... (units unknown) (unknown) (unknown) (no date) (unknown) (unknown) CV: regular ra te and rhythm, warm extremities (units unknown) (unknown) (unknown) (no date) (unknown) (unknown) Cardiac mo... (units unknown) (unknown) (unknown) (no date) (unknown) (unknown) Chem (units unknown) (unknown) (unknown) (no date) (unknown) (unknown) Chief Complain t: Back Pain/Injury (units unknown) (unknown) (unknown) (no date) (unknown) (unknown) Chief Complain t: low back pain (units unknown) (unknown) (unknown) (no date) (unknown) (unknown) Catholic? (units unknown) (unknown) (unknown) (no date) (unknown) (unknown) Chronic T12 compression fracture without retropulsed fracture fragment (units unknown) (unknown) (unknown) (no date) (unknown) (unknown) Clinical Impression: (units unknown) (unknown) (unknown) (no date) (unknown) (unknown) Clinical decis ion rules or scores evaluated: (units unknown) (unknown) (unknown) (no date) (unknown) (unknown) Close (units unknown) (unknown) (unknown) (no date) (unknown) (unknown) Code Statu... (units unknown) (unknown) (unknown) (no date) (unknown) (unknown) Consult to... (units unknown) (unknown) (unknown) (no date) (unknown) (unknown) Zoltan? (units unknown) (unknown) (unknown) (no date) (unknown) (unknown) Course of care : Patient's pain was treated with Dilaudid, methocarbamol, (units unknown) (unknown) (unknown) (no date) (unknown) (unknown) Course (units unknown) (unknown) (unknown) (no date) (unknown) (unknown) Creatinine... 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 No changes in his bowels, he is requesting an MRI as (units unknown) (unknown) (unknown) (no date) (unknown) (unknown) Denies point tenderness, fever, stool changes, unilateral weakness or changes. (units unknown) (unknown) (unknown) (no date) (unknown) (unknown) Departure (units unknown) (unknown) (unknown) (no date) (unknown) (unknown) Differential d iagnoses include but are not limited to: Hardware malfunction, (units unknown) (unknown) (unknown) (no date) (unknown) (unknown) Discharge Plan (unit s unknown) (unknown) (unknown) (no date) (unknown) (unknown) Discontinued Medications (units unknown) (unknown) (unknown) (no date) (unknown) (unknown) Dizziness? (units unknown) (unknown) (unknown) (no date) (unknown) (unknown) Documented By: OW (u nits unknown) (unknown) (unknown) (no date) (unknown) (unknown) Draft? (units unknown) (unknown) (unknown) (no date) (unknown) (unknown) Kishor Carrasquillo??47??M??1975 (units unknown) (unknown) (unknown) (no date) (unknown) (unknown) [place]ida? (units unknown) (unknown) (unknown) (no date) (unknown) (unknown) ED Orders (units unknown) (unknown) (unknown) (no date) (unknown) (unknown) EKG-12 Keiry... (units unknown) (unknown) (unknown) (no date) (unknown) (unknown) ER Physician: Sahara Roman (units unknown) (unknown) (unknown) (no date) (unknown) (unknown) EXAM (units unknown) (unknown) (unknown) (no date) (unknown) (unknown) Easy to Ch... (units unknown) (unknown) (unknown) (no date) (unknown) (unknown) Emergency Report (un its unknown) (unknown) (unknown) (no date) (unknown) (unknown) Manju? (units unknown) (unknown) (unknown) (no date) (unknown) (unknown) Ethanol (E... (units unknown) (unknown) (unknown) (no date) (unknown) (unknown) Exam Narrative: (uni ts unknown) (unknown) (unknown) (no date) (unknown) (unknown) Exam (units unknown) (unknown) (unknown) (no date) (unknown) (unknown) Extremity Inju ry, Lower? (units unknown) (unknown) (unknown) (no date) (unknown) (unknown) FINDINGS:? (units unknown) (unknown) (unknown) (no date) (unknown) (unknown) Fall? (units unknown) (unknown) (unknown) (no date) (unknown) (unknown) Seth? (units unknown) (unknown) (unknown) (no date) (unknown) (unknown) Flipped (units unknown) (unknown) (unknown) (no date) (unknown) (unknown) GI: abdomen so ft, nondistended, without CVA tenderness bilaterally. (units unknown) (unknown) (unknown) (no date) (unknown) (unknown) General (R... (units unknown) (unknown) (unknown) (no date) (unknown) (unknown) General (units unknown) (unknown) (unknown) (no date) (unknown) (unknown) General: Pleas ant, sitting upright, anxious, appears to be in acute distress, (units unknown) (unknown) (unknown) (no date) (unknown) (unknown) Fidel? (units unknown) (unknown) (unknown) (no date) (unknown) (unknown) [place]? (units unknown) (unknown) (unknown) (no date) (unknown) (unknown) HEENT: symmetr ical facial expressions, moist mucous membranes, neck is supple (units unknown) (unknown) (unknown) (no date) (unknown) (unknown) HPI - Back Pain/Inju ry (units unknown) (unknown) (unknown) (no date) (unknown) (unknown) HPI Narrative: (unit s unknown) (unknown) (unknown) (no date) (unknown) (unknown) Efe? (units unknown) (unknown) (unknown) (no date) (unknown) (unknown) Has IV, needs abx and rasheed exchange- 22F, please send UA from new bag (units unknown) (unknown) (unknown) (no date) (unknown) (unknown) Head Injury? (units unknown) (unknown) (unknown) (no date) (unknown) (unknown) History of Pre sent Illness (units unknown) (unknown) (unknown) (no date) (unknown) (unknown) Hold oral K+ u ntil new labs (units unknown) (unknown) (unknown) (no date) (unknown) (unknown) Hydromorphone HCl (Hydromorphone 1 Mg Inj) 1 mg IM NOW ONE (units unknown) (unknown) (unknown) (no date) (unknown) (unknown) I have indepen dently reviewed the patient's vital signs and nursing notes as (units unknown) (unknown) (unknown) (no date) (unknown) (unknown) IMPRESSION:? (units unknown) (unknown) (unknown) (no date) (unknown) (unknown) INDICATIONS:? New lower extremity weakness, pain exacerbation after twist (units unknown) (unknown) (unknown) (no date) (unknown) (unknown) ISO? (units unknown) (unknown) (unknown) (no date) (unknown) (unknown) Ictotest U... (units unknown) (unknown) (unknown) (no date) (unknown) (unknown) Image quality: ? Excellent.? (units unknown) (unknown) (unknown) (no date) (unknown) (unknown) Imaging Data (units unknown) (unknown) (unknown) (no date) (unknown) (unknown) Imaging Reports (uni ts unknown) (unknown) (unknown) (no date) (unknown) (unknown) Imaging (units unknown) (unknown) (unknown) (no date) (unknown) (unknown) Independent sd genaian: Patient (units unknown) (unknown) (unknown) (no date) (unknown) (unknown) Initial Vital Signs (units unknown) (unknown) (unknown) (no date) (unknown) (unknown) Initial Vital Signs: (units unknown) (unknown) (unknown) (no date) (unknown) (unknown) Instructions: DI for Low Back Pain (units unknown) (unknown) (unknown) (no date) (unknown) (unknown) [facility] [address] [place] [id number] (units unknown) (unknown) (unknown) (no date) (unknown) (unknown) [facility] (uni ts unknown) (unknown) (unknown) (no date) (unknown) (unknown) Abbe? (units unknown) (unknown) (unknown) (no date) (unknown) (unknown) Gracie? (units unknown) (unknown) (unknown) (no date) (unknown) (unknown) Sahara Lindow (units unknown) (unknown) (unknown) (no date) (unknown) (unknown) Sahara Clark Crew, ARN P (units unknown) (unknown) (unknown) (no date) (unknown) (unknown) Kishor? (units unknown) (unknown) (unknown) (no date) (unknown) (unknown) Jesus Wright (units unknown) (unknown) (unknown) (no date) (unknown) (unknown) Jenna M (units unknown) (unknown) (unknown) (no date) (unknown) (unknown) Jay? (units unknown) (unknown) (unknown) (no date) (unknown) (unknown) Radha B (units unknown) (unknown) (unknown) (no date) (unknown) (unknown) L1-L2:? Disc s pace is preserved.? No central or foraminal stenosis (units unknown) (unknown) (unknown) (no date) (unknown) (unknown) L2-L3:? Disc s pace narrowing and circumferential disc bulge results in moderate (units unknown) (unknown) (unknown) (no date) (unknown) (unknown) L3, L4 and L5 decompressive laminectomies with interbody fusion and posterior (units unknown) (unknown) (unknown) (no date) (unknown) (unknown) L3-L4:? Discec madonna and fusion with posterior decompression.? No central (units unknown) (unknown) (unknown) (no date) (unknown) (unknown) L4-L5:? Discec madonna and fusion with posterior decompression.? No central (units unknown) (unknown) (unknown) (no date) (unknown) (unknown) L5-S1:? Discec madonna and fusion with posterior decompression.? No central (units unknown) (unknown) (unknown) (no date) (unknown) (unknown) Lactate (L... (units unknown) (unknown) (unknown) (no date) (unknown) (unknown) Last Admin: 13:55 Dose: 750 mg (units unknown) (unknown) (unknown) (no date) (unknown) (unknown) Last Admin: 13:56 Dose: 1 each (units unknown) (unknown) (unknown) (no date) (unknown) (unknown) Last Admin: 13:58 Dose: 1 mg (units unknown) (unknown) (unknown) (no date) (unknown) (unknown) Last Admin: 15:10 Dose: 1 tab (units unknown) (unknown) (unknown) (no date) (unknown) (unknown) Launch?Image (units unknown) (unknown) (unknown) (no date) (unknown) (unknown) Left hip pain/Pop? ( units unknown) (unknown) (unknown) (no date) (unknown) (unknown) Trav? (units unknown) (unknown) (unknown) (no date) (unknown) (unknown) Lidocaine (Lid ocaine Patch 1 Each Adh..Patch) 1 each TOP NOW ONE (units unknown) (unknown) (unknown) (no date) (unknown) (unknown) Lipase Sta... (units unknown) (unknown) (unknown) (no date) (unknown) (unknown) Loc: ED (units unknown) (unknown) (unknown) (no date) (unknown) (unknown) Lower lumbar s pine interbody fusion, posterior decompression and (units unknown) (unknown) (unknown) (no date) (unknown) (unknown) Loraine Charles MD [Physician] (units unknown) (unknown) (unknown) (no date) (unknown) (unknown) Lumbar Spine M RI (Signed) (units unknown) (unknown) (unknown) (no date) (unknown) (unknown) Lumbar Spine MRI (un its unknown) (unknown) (unknown) (no date) (unknown) (unknown) Lumbar back pain (un its unknown) (unknown) (unknown) (no date) (unknown) (unknown) Kaley? (units unknown) (unknown) (unknown) (no date) (unknown) (unknown) Lyrica for his pain. (units unknown) (unknown) (unknown) (no date) (unknown) (unknown) MAR (units unknown) (unknown) (unknown) (no date) (unknown) (unknown) MDM - Back Pain/Inju ry (units unknown) (unknown) (unknown) (no date) (unknown) (unknown) MDM Narrative (units unknown) (unknown) (unknown) (no date) (unknown) (unknown) MIPS: This enc ounter doesn't have any diagnosis' associated with MIPS criteria. (units unknown) (unknown) (unknown) (no date) (unknown) (unknown) MR Lumbar Spine: (un its unknown) (unknown) (unknown) (no date) (unknown) (unknown) MR lumbar spin e wo con Stat (units unknown) (unknown) (unknown) (no date) (unknown) (unknown) MR lumbar spine wo c on (units unknown) (unknown) (unknown) (no date) (unknown) (unknown) MR#: [id number] (uni ts unknown) (unknown) (unknown) (no date) (unknown) (unknown) MRI Results wi thout acute abnormality. (units unknown) (unknown) (unknown) (no date) (unknown) (unknown) MSK: moves all extremities, no weakness, normal tone, ambulatory without deficit (units unknown) (unknown) (unknown) (no date) (unknown) (unknown) Martine? (units unknown) (unknown) (unknown) (no date) (unknown) (unknown) Magnesium ... (units unknown) (unknown) (unknown) (no date) (unknown) (unknown) Magnetic Reson ance Report (units unknown) (unknown) (unknown) (no date) (unknown) (unknown) Main ED (units unknown) (unknown) (unknown) (no date) (unknown) (unknown) Chris? (units unknown) (unknown) (unknown) (no date) (unknown) (unknown) Measure pe... (units unknown) (unknown) (unknown) (no date) (unknown) (unknown) Medical decisi on making narrative: (units unknown) (unknown) (unknown) (no date) (unknown) (unknown) Medication Instructions Recorded (units unknown) (unknown) (unknown) (no date) (unknown) (unknown) Methocarbamol (Methocarbamol 500 Mg Tablet) 750 mg PO NOW ONE (units unknown) (unknown) (unknown) (no date) (unknown) (unknown) Microbiolo... (units unknown) (unknown) (unknown) (no date) (unknown) (unknown) Moderate left and right foraminal stenosis (units unknown) (unknown) (unknown) (no date) (unknown) (unknown) Alexander Danielle MD [Physician] (units unknown) (unknown) (unknown) (no date) (unknown) (unknown) My List (units unknown) (unknown) (unknown) (no date) (unknown) (unknown) NPO Diet (units unknown) (unknown) (unknown) (no date) (unknown) (unknown) NT-proBNP ... (units unknown) (unknown) (unknown) (no date) (unknown) (unknown) Narrative (units unknown) (unknown) (unknown) (no date) (unknown) (unknown) Nausea/Vomitin g/Diarrh ea? (units unknown) (unknown) (unknown) (no date) (unknown) (unknown) Neuro Symptoms/Deficit? (units unknown) (unknown) (unknown) (no date) (unknown) (unknown) Neuro: normal speech and cognition, A+O x3 (units unknown) (unknown) (unknown) (no date) (unknown) (unknown) New (units unknown) (unknown) (unknown) (no date) (unknown) (unknown) No Action (units unknown) (unknown) (unknown) (no date) (unknown) (unknown) No Chief Complaint? (units unknown) (unknown) (unknown) (no date) (unknown) (unknown) No Document? (units unknown) (unknown) (unknown) (no date) (unknown) (unknown) No Known Drug Allergies Allergy Verified 09/10/21 16:42 (units unknown) (unknown) (unknown) (no date) (unknown) (unknown) No Time Seen? (units unknown) (unknown) (unknown) (no date) (unknown) (unknown) Noncontrast sa gittal T1 spin echo and T2 fast echo, sagittal STIR, and T2 fast (units unknown) (unknown) (unknown) (no date) (unknown) (unknown) O2 Sat (units unknown) (unknown) (unknown) (no date) (unknown) (unknown) Sridevi W (units unknown) (unknown) (unknown) (no date) (unknown) (unknown) Order (units unknown) (unknown) (unknown) (no date) (unknown) (unknown) Ordered: (units unknown) (unknown) (unknown) (no date) (unknown) (unknown) Ordering Provi kael: Sahara Roman (units unknown) (unknown) (unknown) (no date) (unknown) (unknown) Orders (units unknown) (unknown) (unknown) (no date) (unknown) (unknown) Orthopedics on June 13. He denies urinary frequency, urgency, or retention. (units unknown) (unknown) (unknown) (no date) (unknown) (unknown) Oxycodone/Acet aminophe n (Oxycodone/Acetaminoph en 5/325 Tablet) 1 tab PO NOW ONE (units unknown) (unknown) (unknown) (no date) (unknown) (unknown) Oxygen Deliver y Method Room Air 06/07/22 13:07 (units unknown) (unknown) (unknown) (no date) (unknown) (unknown) Oxygen Deliver y Method Room Air (units unknown) (unknown) (unknown) (no date) (unknown) (unknown) POC/ISRAEL (units unknown) (unknown) (unknown) (no date) (unknown) (unknown) PROCEDURE:? MR LUMBAR SPINE WO CON (units unknown) (unknown) (unknown) (no date) (unknown) (unknown) PTT Partia... (units unknown) (unknown) (unknown) (no date) (unknown) (unknown) Paraspinous So ft Tissues:? No paravertebral masses.? (units unknown) (unknown) (unknown) (no date) (unknown) (unknown) Patient Dispos ition: Home (units unknown) (unknown) (unknown) (no date) (unknown) (unknown) Patient History (uni ts unknown) (unknown) (unknown) (no date) (unknown) (unknown) Patient is brenda ropriate for outpatient management. (units unknown) (unknown) (unknown) (no date) (unknown) (unknown) Patient: Kishor Carrasquillo MR#: [id number] (units unknown) (unknown) (unknown) (no date) (unknown) (unknown) Patient: Kishor Carrasquillo (units unknown) (unknown) (unknown) (no date) (unknown) (unknown) [place]? (units unknown) (unknown) (unknown) (no date) (unknown) (unknown) Pending? (units unknown) (unknown) (unknown) (no date) (unknown) (unknown) Pertinent Imag ing reviewed: MR lumbar spine without acute abnormality (units unknown) (unknown) (unknown) (no date) (unknown) (unknown) ... (units unknown) (unknown) (unknown) (no date) (unknown) (unknown) Prescriptions: (unit s unknown) (unknown) (unknown) (no date) (unknown) (unknown) Previous Rx's (units unknown) (unknown) (unknown) (no date) (unknown) (unknown) Procalcito... (units unknown) (unknown) (unknown) (no date) (unknown) (unknown) Procedure: MR lumbar spine wo con (units unknown) (unknown) (unknown) (no date) (unknown) (unknown) [facility] [Provider Group] (units unknown) (unknown) (unknown) (no date) (unknown) (unknown) Prothrombi... (units unknown) (unknown) (unknown) (no date) (unknown) (unknown) Psychiatric Symptoms ? (units unknown) (unknown) (unknown) (no date) (unknown) (unknown) Pulse Oximetry 97 06/07/22 13:07 (units unknown) (unknown) (unknown) (no date) (unknown) (unknown) Pulse Oximetry 97 (u nits unknown) (unknown) (unknown) (no date) (unknown) (unknown) Pulse Rate 86 06/07/22 13:07 (units unknown) (unknown) (unknown) (no date) (unknown) (unknown) Pulse Rate 86 (units unknown) (unknown) (unknown) (no date) (unknown) (unknown) Pulse (units unknown) (unknown) (unknown) (no date) (unknown) (unknown) Questions are addressed and there is agreement with the plan and for follow-up. (units unknown) (unknown) (unknown) (no date) (unknown) (unknown) R02? (units unknown) (unknown) (unknown) (no date) (unknown) (unknown) R04? (units unknown) (unknown) (unknown) (no date) (unknown) (unknown) R05? (units unknown) (unknown) (unknown) (no date) (unknown) (unknown) R06? (units unknown) (unknown) (unknown) (no date) (unknown) (unknown) R07? (units unknown) (unknown) (unknown) (no date) (unknown) (unknown) R08? (units unknown) (unknown) (unknown) (no date) (unknown) (unknown) R10? (units unknown) (unknown) (unknown) (no date) (unknown) (unknown) R11? (units unknown) (unknown) (unknown) (no date) (unknown) (unknown) R12? (units unknown) (unknown) (unknown) (no date) (unknown) (unknown) R13? (units unknown) (unknown) (unknown) (no date) (unknown) (unknown) REG ER? (units unknown) (unknown) (unknown) (no date) (unknown) (unknown) RM 216 for Manoj th / [place] (units unknown) (unknown) (unknown) (no date) (unknown) (unknown) ROS Unobtainab le: All systems reviewed + are unremarkable except as noted in HPI (units unknown) (unknown) (unknown) (no date) (unknown) (unknown) RT Consult... (units unknown) (unknown) (unknown) (no date) (unknown) (unknown) Radiologist's Impression: (units unknown) (unknown) (unknown) (no date) (unknown) (unknown) Ready for Discharge? (units unknown) (unknown) (unknown) (no date) (unknown) (unknown) Referrals: (units unknown) (unknown) (unknown) (no date) (unknown) (unknown) Registered? (units unknown) (unknown) (unknown) (no date) (unknown) (unknown) Related Data (units unknown) (unknown) (unknown) (no date) (unknown) (unknown) Resp (units unknown) (unknown) (unknown) (no date) (unknown) (unknown) Respiratory Ra te 22 06/07/22 13:07 (units unknown) (unknown) (unknown) (no date) (unknown) (unknown) Respiratory Rate 22 (units unknown) (unknown) (unknown) (no date) (unknown) (unknown) Respiratory: n ormal work of breathing, without tachypnea or hypoxia. (units unknown) (unknown) (unknown) (no date) (unknown) (unknown) Review of Systems (u nits unknown) (unknown) (unknown) (no date) (unknown) (unknown) Reviewed vital s signs and nursing notes. (units unknown) (unknown) (unknown) (no date) (unknown) (unknown) Gerald? (units unknown) (unknown) (unknown) (no date) (unknown) (unknown) Routine Call Back (u nits unknown) (unknown) (unknown) (no date) (unknown) (unknown) Rx Instructions: (un its unknown) (unknown) (unknown) (no date) (unknown) (unknown) STATUS (units unknown) (unknown) (unknown) (no date) (unknown) (unknown) Salicylate... (units unknown) (unknown) (unknown) (no date) (unknown) (unknown) [place]? (units unknown) (unknown) (unknown) (no date) (unknown) (unknown) See Rx Instruc tions .ROUTE .COMPLEX Qty: 21 0RF (units unknown) (unknown) (unknown) (no date) (unknown) (unknown) Sepsis, C19S/S? (uni ts unknown) (unknown) (unknown) (no date) (unknown) (unknown) Sepsis? (units unknown) (unknown) (unknown) (no date) (unknown) (unknown) Shortness of Breath/Dyspnea? (units unknown) (unknown) (unknown) (no date) (unknown) (unknown) Sign Up (units unknown) (unknown) (unknown) (no date) (unknown) (unknown) Signed By: (units unknown) (unknown) (unknown) (no date) (unknown) (unknown) Signed (units unknown) (unknown) (unknown) (no date) (unknown) (unknown) Skin: brisk ca pillary refill, without rash or wound (units unknown) (unknown) (unknown) (no date) (unknown) (unknown) [place]? (units unknown) (unknown) (unknown) (no date) (unknown) (unknown) Smoking Status : Never smoker (units unknown) (unknown) (unknown) (no date) (unknown) (unknown) [place]? (units unknown) (unknown) (unknown) (no date) (unknown) (unknown) Social History (units unknown) (unknown) (unknown) (no date) (unknown) (unknown) Social conside rations that may affect disposition: none (units unknown) (unknown) (unknown) (no date) (unknown) (unknown) Source: patient (uni ts unknown) (unknown) (unknown) (no date) (unknown) (unknown) Spinal Cord:? Conus medullaris terminates at the L1 level.? Visualized cord (units unknown) (unknown) (unknown) (no date) (unknown) (unknown) Stand Alone Fo lorraine: Patient Portal/API (units unknown) (unknown) (unknown) (no date) (unknown) (unknown) Stated Complai nt: back pain worsening visited t-4 (units unknown) (unknown) (unknown) (no date) (unknown) (unknown) States he had muscle spasms Sunday and Sunday over this weekend but does not (units unknown) (unknown) (unknown) (no date) (unknown) (unknown) Jaylon? (units unknown) (unknown) (unknown) (no date) (unknown) (unknown) Stop: 06/07/22 13:36 (units unknown) (unknown) (unknown) (no date) (unknown) (unknown) Stop: 06/07/22 14:39 (units unknown) (unknown) (unknown) (no date) (unknown) (unknown) Substance Use Type: does not use (units unknown) (unknown) (unknown) (no date) (unknown) (unknown) Surge (units unknown) (unknown) (unknown) (no date) (unknown) (unknown) T12-L1:? Disc space is preserved.? No central or foraminal stenosis. (units unknown) (unknown) (unknown) (no date) (unknown) (unknown) TECHNIQUE:? (units unknown) (unknown) (unknown) (no date) (unknown) (unknown) Tammar? (units unknown) (unknown) (unknown) (no date) (unknown) (unknown) Temp (units unknown) (unknown) (unknown) (no date) (unknown) (unknown) Temperature 97 .1 F L 06/07/22 13:07 (units unknown) (unknown) (unknown) (no date) (unknown) (unknown) Temperature 97.1 F L (units unknown) (unknown) (unknown) (no date) (unknown) (unknown) There are no a cute changes on your MRI today which is great news. The prior (units unknown) (unknown) (unknown) (no date) (unknown) (unknown) This is a 47-y ear-old male with a longstanding history of lumbar issues.?Has had (units unknown) (unknown) (unknown) (no date) (unknown) (unknown) Thyroid St... (units unknown) (unknown)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 (unknown) (unknown) (no date) (unknown) (unknown) Loraine Charles MD [Physician] (units unknown) (unknown) (unknown) (no date) (unknown) (unknown) Lumbar back pa in, Degenerative disc disease, lumbar, Central stenosis of spinal (units unknown) (unknown) (unknown) (no date) (unknown) (unknown) [place] for his pain. (units unknown) (unknown) (unknown) (no date) (unknown) (unknown) MDM - Back Pain/Inju ry (units unknown) (unknown) (unknown) (no date) (unknown) (unknown) MDM Narrative (units unknown) (unknown) (unknown) (no date) (unknown) (unknown) MIPS: This enc ounter doesn't have any diagnosis' associated with MIPS criteria. (units unknown) (unknown) (unknown) (no date) (unknown) (unknown) MR Lumbar Spine: (un its unknown) (unknown) (unknown) (no date) (unknown) (unknown) MR lumbar spin e wo con Stat (units unknown) (unknown) (unknown) (no date) (unknown) (unknown) MR#: [id number] (uni ts unknown) (unknown) (unknown) (no date) (unknown) (unknown) MRI Results wi out acute abnormality. Patient was provided a copy of his (units unknown) (unknown) (unknown) (no date) (unknown) (unknown) MSK: moves all extremities, no weakness, normal tone, ambulatory without deficit (units unknown) (unknown) (unknown) (no date) (unknown) (unknown) Magnetic Reson ance Report (units unknown) (unknown) (unknown) (no date) (unknown) (unknown) Medical decisi on making narrative: (units unknown) (unknown) (unknown) (no date) (unknown) (unknown) Medication Instructions Recorded (units unknown) (unknown) (unknown) (no date) (unknown) (unknown) Methocarbamol (Methocarbamol 500 Mg Tablet) 750 mg PO NOW ONE (units unknown) (unknown) (unknown) (no date) (unknown) (unknown) Moderate left and right foraminal stenosis (units unknown) (unknown) (unknown) (no date) (unknown) (unknown) Alexander Danielle MD [Physician] (units unknown) (unknown) (unknown) (no date) (unknown) (unknown) Narrative (units unknown) (unknown) (unknown) (no date) (unknown) (unknown) Neuro: normal speech and cognition, A+O x3 (units unknown) (unknown) (unknown) (no date) (unknown) (unknown) New (units unknown) (unknown) (unknown) (no date) (unknown) (unknown) No Action (units unknown) (unknown) (unknown) (no date) (unknown) (unknown) No Known Drug Allergies Allergy Verified 09/10/21 16:42 (units unknown) (unknown) (unknown) (no date) (unknown) (unknown) Noncontrast sa gittal T1 spin echo and T2 fast echo, sagittal STIR, and T2 fast (units unknown) (unknown) (unknown) (no date) (unknown) (unknown) Ordered: (units unknown) (unknown) (unknown) (no date) (unknown) (unknown) Ordering Provi kael: [facility] (units unknown) (unknown) (unknown) (no date) (unknown) (unknown) Orders (units unknown) (unknown) (unknown) (no date) (unknown) (unknown) Orthopedics on June 13. He denies urinary frequency, urgency, or retention. (units unknown) (unknown) (unknown) (no date) (unknown) (unknown) Oxycodone/Acet aminophe n (Oxycodone/Acetaminoph en 5/325 Tablet) 1 tab PO NOW ONE (units unknown) (unknown) (unknown) (no date) (unknown) (unknown) Oxygen Deliver y Method Room Air 06/07/22 13:07 (units unknown) (unknown) (unknown) (no date) (unknown) (unknown) Oxygen Deliver y Method Room Air (units unknown) (unknown) (unknown) (no date) (unknown) (unknown) PROCEDURE:? MR LUMBAR SPINE WO CON (units unknown) (unknown) (unknown) (no date) (unknown) (unknown) Paraspinous So ft Tissues:? No paravertebral masses.? (units unknown) (unknown) (unknown) (no date) (unknown) (unknown) Patient Dispos ition: Home (units unknown) (unknown) (unknown) (no date) (unknown) (unknown) Patient History (uni ts unknown) (unknown) (unknown) (no date) (unknown) (unknown) Patient is brenda ropriate for outpatient management. (units unknown) (unknown) (unknown) (no date) (unknown) (unknown) Patient: Kishor Carrasquillo MR#: [id number] (units unknown) (unknown) (unknown) (no date) (unknown) (unknown) Patient: Kishor Carrasquillo (units unknown) (unknown) (unknown) (no date) (unknown) (unknown) Pertinent Imag ing reviewed: MR lumbar spine without acute abnormality (units unknown) (unknown) (unknown) (no date) (unknown) (unknown) Prescriptions: (unit s unknown) (unknown) (unknown) (no date) (unknown) (unknown) Previous Rx's (units unknown) (unknown) (unknown) (no date) (unknown) (unknown) Procedure: MR lumbar spine wo con (units unknown) (unknown) (unknown) (no date) (unknown) (unknown) [facility] [Provider Group] (units unknown) (unknown) (unknown) (no date) (unknown) (unknown) Pulse Oximetry 97 06/07/22 13:07 (units unknown) (unknown) (unknown) (no date) (unknown) (unknown) Pulse Oximetry 97 (u nits unknown) (unknown) (unknown) (no date) (unknown) (unknown) Pulse Rate 86 06/07/22 13:07 (units unknown) (unknown) (unknown) (no date) (unknown) (unknown) Pulse Rate 86 (units unknown) (unknown) (unknown) (no date) (unknown) (unknown) Questions are addressed and there is agreement with the plan and for follow-up. (units unknown) (unknown) (unknown) (no date) (unknown) (unknown) ROS Unobtainab le: All systems reviewed + are unremarkable except as noted in HPI (units unknown) (unknown) (unknown) (no date) (unknown) (unknown) Radiologist's Impression: (units unknown) (unknown) (unknown) (no date) (unknown) (unknown) Referrals: (units unknown) (unknown) (unknown) (no date) (unknown) (unknown) Related Data (units unknown) (unknown) (unknown) (no date) (unknown) (unknown) Respiratory Ra te 22 06/07/22 13:07 (units unknown) (unknown) (unknown) (no date) (unknown) (unknown) Respiratory Rate 22 (units unknown) (unknown) (unknown) (no date) (unknown) (unknown) Respiratory: n ormal work of breathing, without tachypnea or hypoxia. (units unknown) (unknown) (unknown) (no date) (unknown) (unknown) Review of Systems (u nits unknown) (unknown) (unknown) (no date) (unknown) (unknown) Reviewed vital s signs and nursing notes. (units unknown) (unknown) (unknown) (no date) (unknown) (unknown) Rx Instructions: (un its unknown) (unknown) (unknown) (no date) (unknown) (unknown) See Rx Instruc tions .ROUTE .COMPLEX Qty: 21 0RF (units unknown) (unknown) (unknown) (no date) (unknown) (unknown) Signed By: (units unknown) (unknown) (unknown) (no date) (unknown) (unknown) Signed (units unknown) (unknown) (unknown) (no date) (unknown) (unknown) Skin: brisk ca pillary refill, without rash or wound (units unknown) (unknown) (unknown) (no date) (unknown) (unknown) Smoking Status : Never smoker (units unknown) (unknown) (unknown) (no date) (unknown) (unknown) Social History (units unknown) (unknown) (unknown) (no date) (unknown) (unknown) Social conside rations that may affect disposition: none (units unknown) (unknown) (unknown) (no date) (unknown) (unknown) Source: patient (uni ts unknown) (unknown) (unknown) (no date) (unknown) (unknown) Spinal Cord:? Conus medullaris terminates at the L1 level.? Visualized cord (units unknown) (unknown) (unknown) (no date) (unknown) (unknown) Stand Alone Fo lorraine: Patient Portal/API (units unknown) (unknown) (unknown) (no date) (unknown) (unknown) Stated Complai nt: back pain worsening visited t-4 (units unknown) (unknown) (unknown) (no date) (unknown) (unknown) States he had muscle spasms Sunday and Sunday over this weekend but does not (units unknown) (unknown) (unknown) (no date) (unknown) (unknown) Stop: 06/07/22 13:36 (units unknown) (unknown) (unknown) (no date) (unknown) (unknown) Stop: 06/07/22 14:39 (units unknown) (unknown) (unknown) (no date) (unknown) (unknown) Stop: 06/07/22 15:49 (units unknown) (unknown) (unknown) (no date) (unknown) (unknown) Substance Use Type: does not use (units unknown) (unknown) (unknown) (no date) (unknown) (unknown) T12-L1:? Disc space is preserved.? No central or foraminal stenosis. (units unknown) (unknown) (unknown) (no date) (unknown) (unknown) TECHNIQUE:? (units unknown) (unknown) (unknown) (no date) (unknown) (unknown) Temperature 97 .1 F L 06/07/22 13:07 (units unknown) (unknown) (unknown) (no date) (unknown) (unknown) Temperature 97.1 F L (units unknown) (unknown) (unknown) (no date) (unknown) (unknown) There are no a cute changes on your MRI today which is great news. The prior (units unknown) (unknown) (unknown) (no date) (unknown) (unknown) This is a 47-y ear-old male with a longstanding history of lumbar issues.?Has had (units unknown) (unknown) (unknown) (no date) (unknown) (unknown) Time Seen by Wesley gann: 06/07/22 13:15 (units unknown) (unknown) (unknown) (no date) (unknown) (unknown) Vital Signs - 8 hr ( units unknown) (unknown) (unknown) (no date) (unknown) (unknown) Vital Signs (units unknown) (unknown) (unknown) (no date) (unknown) (unknown) Vital signs: (units unknown) (unknown) (unknown) (no date) (unknown) (unknown) [ X] New medic ation prescriptions sent to your pharmacy: [ [facility]] (units unknown) (unknown) (unknown) (no date) (unknown) (unknown) [ ] New medica tion written as a paper prescription (units unknown) (unknown) (unknown) (no date) (unknown) (unknown) [ ] No new med ications given (units unknown) (unknown) (unknown) (no date) (unknown) (unknown) a dose pack (Abilio llamas (Adria)) #21 ea (units unknown) (unknown) (unknown) (no date) (unknown) (unknown) additional [place] coverage (units unknown) (unknown) (unknown) (no date) (unknown) (unknown) ago and states that his pain has not gotten better. He sees Anesis for (units unknown) (unknown) (unknown) (no date) (unknown) (unknown) alcohol intake frequency: 0-2 drinks per day (units unknown) (unknown) (unknown) (no date) (unknown) (unknown) and below (units unknown) (unknown) (unknown) (no date) (unknown) (unknown) appointment. L et them know you were seen in the Emergency Department and that we (units unknown) (unknown) (unknown) (no date) (unknown) (unknown) are having dif ficulty sleeping. I have given you Percocet instead of (units unknown) (unknown) (unknown) (no date) (unknown) (unknown) asked that you be seen for follow-up. We will electronically transmit a record (units unknown) (unknown) (unknown) (no date) (unknown) (unknown) atraumatic. He completed a steroid pack and was prescribed hydrocodone. He (units unknown) (unknown) (unknown) (no date) (unknown) (unknown) baclofen 20 mg tablet 20 mg PO TID #21 tabs 09/10/21 (units unknown) (unknown) (unknown) (no date) (unknown) (unknown) baclofen 20 mg table t (units unknown) (unknown) (unknown) (no date) (unknown) (unknown) benefit from f ollow-up with orthopedic surgery or Dr. Umana for pain. Please (units unknown) (unknown) (unknown) (no date) (unknown) (unknown) bilateral fora solo stenosis (units unknown) (unknown) (unknown) (no date) (unknown) (unknown) canal (units unknown) (unknown) (unknown) (no date) (unknown) (unknown) cauda equina, epidural hematoma, ligamental injury, strain/sprain, muscular (units unknown) (unknown) (unknown) (no date) (unknown) (unknown) central stenosis. (u nits unknown) (unknown) (unknown) (no date) (unknown) (unknown) central stenos is.? Hypertrophic facet joints contribute to moderate bilateral (units unknown) (unknown) (unknown) (no date) (unknown) (unknown) change from (units unknown) (unknown) (unknown) (no date) (unknown) (unknown) complicated pa in management in [place], [place]. He has seen Dr. Umana in (units unknown) (unknown) (unknown) (no date) (unknown) (unknown) concerning sym ptoms, such as [fever greater than 101F, chills, worsening pain, (units unknown) (unknown) (unknown) (no date) (unknown) (unknown) course of medi cations to use for the meantime. I will continue your steroids (units unknown) (unknown) (unknown) (no date) (unknown) (unknown) degenerative d isc disease and patient midline low back pain associated muscle (units unknown) (unknown) (unknown) (no date) (unknown) (unknown) demonstrates (units unknown) (unknown) (unknown) (no date) (unknown) (unknown) disc disease a nd arthropathy with moderate to severe central canal stenosis. (units unknown) (unknown) (unknown) (no date) (unknown) (unknown) emergency depa rtment 4 days ago and had lumbar spine x-rays without changes. He (units unknown) (unknown) (unknown) (no date) (unknown) (unknown) establish care with one of the [facility] primary care providers. (units unknown) (unknown) (unknown) (no date) (unknown) (unknown) follow-up with your pain clinic as soon as possible. I have given you a short (units unknown) (unknown) (unknown) (no date) (unknown) (unknown) for this week and encourage you to use muscle relaxers for severe pain or if you (units unknown) (unknown) (unknown) (no date) (unknown) (unknown) foraminal (units unknown) (unknown) (unknown) (no date) (unknown) (unknown) from prior exam (uni ts unknown) (unknown) (unknown) (no date) (unknown) (unknown) had subjective weakness to the lower extremities but was able to lift his legs (units unknown) (unknown) (unknown) (no date) (unknown) (unknown) have muscle sp asms at this time. Is currently on his steroid pack from 4 days (units unknown) (unknown) (unknown) (no date) (unknown) (unknown) he states that when he slipped a few weeks ago on the deck, he had a twisting (units unknown) (unknown) (unknown) (no date) (unknown) (unknown) hydrocodone 5 mg-acetaminophen 325 1 tab PO Q4-6H PRN pain #10 tabs 06/04/22 (units unknown) (unknown) (unknown) (no date) (unknown) (unknown) hydrocodone 5 mg-acetaminophen 325 1 tab PO Q4-6H PRN pain #20 tabs 05/27/22 (units unknown) (unknown) (unknown) (no date) (unknown) (unknown) hydrocodone th is time, please use these only for severe pain and take them with (units unknown) (unknown) (unknown) (no date) (unknown) (unknown) hydrocodone-ac etaminop hen 5-325 mg tablet (units unknown) (unknown) (unknown) (no date) (unknown) (unknown) ibuprofen and Tylenol every 6 hours. Use lidocaine patches and multi modes of (units unknown) (unknown) (unknown) (no date) (unknown) (unknown) instrumentatio n, stable (units unknown) (unknown) (unknown) (no date) (unknown) (unknown) leave on most painful area for up to 12 hrs (units unknown) (unknown) (unknown) (no date) (unknown) (unknown) lidocaine 5 % topical patch 1 patch topical DAILY #30 ea 06/07/22 (units unknown) (unknown) (unknown) (no date) (unknown) (unknown) lidocaine [Lid oderm] 5 % adhesive patch,medicated (units unknown) (unknown) (unknown) (no date) (unknown) (unknown) lidocaine patc h and Percocet tab (units unknown) (unknown) (unknown) (no date) (unknown) (unknown) likely has an appointment with on 06/13/[address] Mauro another (units unknown) (unknown) (unknown) (no date) (unknown) (unknown) may be performed.? ( units unknown) (unknown) (unknown) (no date) (unknown) (unknown) methocarbamol 750 mg tablet 750 mg PO Q8H PRN muscle pain #30 06/07/22 (units unknown) (unknown) (unknown) (no date) (unknown) (unknown) methocarbamol 750 mg tablet (units unknown) (unknown) (unknown) (no date) (unknown) (unknown) methylpredniso lone 4 mg tablets in See Rx Instructions PO .COMPLEX 05/27/22 (units unknown) (unknown) (unknown) (no date) (unknown) (unknown) methylpredniso lone 4 mg tablets in See Rx Instructions PO .COMPLEX 06/04/22 (units unknown) (unknown) (unknown) (no date) (unknown) (unknown) methylpredniso lone [Medrol (Adria)] 4 mg tablets,dose pack (units unknown) (unknown) (unknown) (no date) (unknown) (unknown) mg tablet (Endocet) (units unknown) (unknown) (unknown) (no date) (unknown) (unknown) mg tablet (units unknown) (unknown) (unknown) (no date) (unknown) (unknown) motion and fee ls like something is wrong because it is so painful. He takes (units unknown) (unknown) (unknown) (no date) (unknown) (unknown) multiple surge andria in the past.?Has hardware in place.? He was here in the (units unknown) (unknown) (unknown) (no date) (unknown) (unknown) no focal weakn ess, nontender to his lumbar spine, paraspinal musculature is (units unknown) (unknown) (unknown) (no date) (unknown) (unknown) normal signal and size.? (units unknown) (unknown) (unknown) (no date) (unknown) (unknown) occurred appro ximately 3 weeks ago. Patient understands to follow-up with his (units unknown) (unknown) (unknown) (no date) (unknown) (unknown) of today's not e if your PCP is in our system (units unknown) (unknown) (unknown) (no date) (unknown) (unknown) orally per pac kage directions (units unknown) (unknown) (unknown) (no date) (unknown) (unknown) other red flag symptoms and requested a repeat MRI for a twisting injury which (units unknown) (unknown) (unknown) (no date) (unknown) (unknown) oxycodone 5 mg tablet 5 mg PO Q6H PRN pain #14 tabs 03/09/22 (units unknown) (unknown) (unknown) (no date) (unknown) (unknown) oxycodone 5 mg table t (units unknown) (unknown) (unknown) (no date) (unknown) (unknown) oxycodone-acet aminophe n 5 mg-325 1 tab PO Q6H PRN pain #14 tabs 06/07/22 (units unknown) (unknown) (unknown) (no date) (unknown) (unknown) oxycodone-acet aminophe n [Endocet] 5-325 mg tablet (units unknown) (unknown) (unknown) (no date) (unknown) (unknown) pain clinic in [place], who is given contact information for his other (units unknown) (unknown) (unknown) (no date) (unknown) (unknown) pain relief to help you achieve better pain control. (units unknown) (unknown) (unknown) (no date) (unknown) (unknown) persistent vom iting or other bothersome symptoms]. (units unknown) (unknown) (unknown) (no date) (unknown) (unknown) prednisone 20 mg tablet 40 mg PO DAILY 5 days #10 tabs 06/07/22 (units unknown) (unknown) (unknown) (no date) (unknown) (unknown) prednisone 20 mg tablet (units unknown) (unknown) (unknown) (no date) (unknown) (unknown) prescribers an d encouraged to follow-up with them for further care. (units unknown) (unknown) (unknown) (no date) (unknown) (unknown) provided conta ct information for Dr. 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 (units unknown) (unknown) (unknown) (no date) (unknown) (unknown) severe (units unknown) (unknown) (unknown) (no date) (unknown) (unknown) spasm, radicul ar pain, spinal stenosis, osteoarthritis (units unknown) (unknown) (unknown) (no date) (unknown) (unknown) spin echo (units unknown) (unknown) (unknown) (no date) (unknown) (unknown) spinal surgeon for another opinion. His MRI suggests this is arthropathy and (units unknown) (unknown) (unknown) (no date) (unknown) (unknown) states that he is having a pain crisis, states it is just in his low back. (units unknown) (unknown) (unknown) (no date) (unknown) (unknown) stenosis (units unknown) (unknown) (unknown) (no date) (unknown) (unknown) stenosis.? Mild (uni ts unknown) (unknown) (unknown) (no date) (unknown) (unknown) stenosis.? (units unknown) (unknown) (unknown) (no date) (unknown) (unknown) surgeries are stable without abnormality. This is a pain crisis in you may (units unknown) (unknown) (unknown) (no date) (unknown) (unknown) tabs (units unknown) (unknown) (unknown) (no date) (unknown) (unknown) tense (units unknown) (unknown) (unknown) (no date) (unknown) (unknown) tension. He is not have radicular symptoms today, no focal weakness, without (units unknown) (unknown) (unknown) (no date) (unknown) (unknown) the past, Dr. Baldwin from [facility], and is scheduled to see Dr. Charles with [facility] (units unknown) (unknown) (unknown) (no date) (unknown) (unknown) the prior exam .? No retropulsed fracture fragment. (units unknown) (unknown) (unknown) (no date) (unknown) (unknown) [facility] In cases with scoliosis, additional coronal T2 fast (units unknown) (unknown) (unknown) (no date) (unknown) (unknown) to severe (units unknown) (unknown) (unknown) (no date) (unknown) (unknown) up off the bed . X-rays did not show acute pathology at the time and hardware (units unknown) (unknown) (unknown) (no date) (unknown) (unknown) was in place. Did not have urinary symptoms or bowel changes and was (units unknown) (unknown) (unknown) (no date) (unknown) (unknown) well as prior records if available. (units unknown) (unknown) (unknown) (no date) (unknown) (unknown) well groomed, afebri le (units unknown) (unknown) Result panel 14 (unknown) (no date) (unknown) (unknown) (no value) (units unknown) (unknown) (unknown) (no date) (unknown) (unknown) <Electronicall y signed by Sahara VERA Crew> (units unknown) (unknown) (unknown) (no date) (unknown) (unknown) <Electronicall y signed by Jesus Wright D.O.> (units unknown) (unknown) (unknown) (no date) (unknown) (unknown) <JODY Serrato - Last Filed: 06/07/22 16:05> (units unknown) (unknown) (unknown) (no date) (unknown) (unknown) <Jesus Wright DO - Last Filed: 06/08/22 06:44> (units unknown) (unknown) (unknown) (no date) (unknown) (unknown) (Lidoderm) (units unknown) (unknown) (unknown) (no date) (unknown) (unknown) *If you do not have a primary care provider please contact [phone] to (units unknown) (unknown) (unknown) (no date) (unknown) (unknown) *Please contin ue to take your regular medications as directed. (units unknown) (unknown) (unknown) (no date) (unknown) (unknown) *Please follow up with your primary care provider in 2-3 days, call for an (units unknown) (unknown) (unknown) (no date) (unknown) (unknown) [facility] should have any new, worsening, or (units unknown) (unknown) (unknown) (no date) (unknown) (unknown) *What to do: (units unknown) (unknown) (unknown) (no date) (unknown) (unknown) *You have been diagnosed with low back pain related to the chronic degenerative (units unknown) (unknown) (unknown) (no date) (unknown) (unknown) -to-moderate b ilateral foraminal stenosis (units unknown) (unknown) (unknown) (no date) (unknown) (unknown) 06/07/22 1605 (units unknown) (unknown) (unknown) (no date) (unknown) (unknown) 06/07/22 (units unknown) (unknown) (unknown) (no date) (unknown) (unknown) 06/08/22 0644 (units unknown) (unknown) (unknown) (no date) (unknown) (unknown) 1 patch topica l DAILY Qty: 30 0RF (units unknown) (unknown) (unknown) (no date) (unknown) (unknown) 1 tab PO Q4-6H PRN (Reason: pain) Qty: 10 0RF (units unknown) (unknown) (unknown) (no date) (unknown) (unknown) 1 tab PO Q4-6H PRN (Reason: pain) Qty: 20 0RF (units unknown) (unknown) (unknown) (no date) (unknown) (unknown) 1 tab PO Q6H P RN (Reason: pain) Qty: 14 0RF (units unknown) (unknown) (unknown) (no date) (unknown) (unknown) [address] (un its unknown) (unknown) (unknown) (no date) (unknown) (unknown) 13:07 (units unknown) (unknown) (unknown) (no date) (unknown) (unknown) 1444, patient is currently an MRI receiving his MR scan. Ordered pain pill for (units unknown) (unknown) (unknown) (no date) (unknown) (unknown) 20 mg PO TID Q ty: 21 0RF (units unknown) (unknown) (unknown) (no date) (unknown) (unknown) 40 mg PO DAILY 5 Days Qty: 10 0RF (units unknown) (unknown) (unknown) (no date) (unknown) (unknown) 5 mg PO Q6H OR N (Reason: pain) Qty: 14 0RF (units unknown) (unknown) (unknown) (no date) (unknown) (unknown) 750 mg PO Q8H PRN (Reason: muscle pain) Qty: 30 0RF (units unknown) (unknown) (unknown) (no date) (unknown) (unknown) 990 (units unknown) (unknown) (unknown) (no date) (unknown) (unknown) ? (units unknown) (unknown) (unknown) (no date) (unknown) (unknown) Accession Numb er: [id number] ?? (units unknown) (unknown) (unknown) (no date) (unknown) (unknown) Acct:[id number] (uni ts unknown) (unknown) (unknown) (no date) (unknown) (unknown) Activity Restrictions/Additiona l Instructions: (units unknown) (unknown) (unknown) (no date) (unknown) (unknown) Age/Sex: 47 / M (uni ts unknown) (unknown) (unknown) (no date) (unknown) (unknown) Alignment and Curvature:? There is normal bony alignment.? (units unknown) (unknown) (unknown) (no date) (unknown) (unknown) Allergies (units unknown) (unknown) (unknown) (no date) (unknown) (unknown) Allergy/AdvRea c Type Severity Reaction Status Date / Time (units unknown) (unknown) (unknown) (no date) (unknown) (unknown) [place] [address] (units unknown) (unknown) (unknown) (no date) (unknown) (unknown) Approved by: Vale Aden M.D. on 06/07/2022 at 14:37? (units unknown) (unknown) (unknown) (no date) (unknown) (unknown) Blood Pressure 152/108 H 06/07/22 13:07 (units unknown) (unknown) (unknown) (no date) (unknown) (unknown) Blood Pressure 152/108 H (units unknown) (unknown) (unknown) (no date) (unknown) (unknown) Bone Marrow:? Wedge-shaped compression fracture T12 without marrow edema or (units unknown) (unknown) (unknown) (no date) (unknown) (unknown) COMPARISON:? I [facility], MR, MR LUMBAR SPINE WO CON, 03/09/2022, 20:09. (units unknown) (unknown) (unknown) (no date) (unknown) (unknown) CV: regular ra te and rhythm, warm extremities (units unknown) (unknown) (unknown) (no date) (unknown) (unknown) Chief Complain t: Back Pain/Injury (units unknown) (unknown) (unknown) (no date) (unknown) (unknown) Chief Complain t: low back pain (units unknown) (unknown) (unknown) (no date) (unknown) (unknown) Chronic T12 compression fracture without retropulsed fracture fragment (units unknown) (unknown) (unknown) (no date) (unknown) (unknown) Clinical Impression: (units unknown) (unknown) (unknown) (no date) (unknown) (unknown) Cosign (units unknown) (unknown) (unknown) (no date) (unknown) (unknown) Course of care : Patient's pain was treated with Dilaudid, methocarbamol, (units unknown) (unknown) (unknown) (no date) (unknown) (unknown) Course (units unknown) (unknown) (unknown) (no date) (unknown) (unknown) : 5 Acct:[id number] (units unknown) (unknown) (unknown) (no date) (unknown) (unknown) : 1975 (uni ts unknown) (unknown) (unknown) (no date) (unknown) (unknown) Date of Servic e: 06/07/22 (units unknown) (unknown) (unknown) (no date) (unknown) (unknown) 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 No changes in his bowels, he is requesting an MRI as (units unknown) (unknown) (unknown) (no date) (unknown) (unknown) Denies point tenderness, fever, stool changes, unilateral weakness or changes. (units unknown) (unknown) (unknown) (no date) (unknown) (unknown) Departure (units unknown) (unknown) (unknown) (no date) (unknown) (unknown) Differential d iagnoses include but are not limited to: Hardware malfunction, (units unknown) (unknown) (unknown) (no date) (unknown) (unknown) Discharge Plan (unit s unknown) (unknown) (unknown) (no date) (unknown) (unknown) Discontinued Medications (units unknown) (unknown) (unknown) (no date) (unknown) (unknown) Documented By: [facility] ( units unknown) (unknown) (unknown) (no date) (unknown) (unknown) Documented By: OW (u nits unknown) (unknown) (unknown) (no date) (unknown) (unknown) ED Attending Cosignature Attestation: (units unknown) (unknown) (unknown) (no date) (unknown) (unknown) ER Physician: Sahara Roman (units unknown) (unknown) (unknown) (no date) (unknown) (unknown) Emergency Report (un its unknown) (unknown) (unknown) (no date) (unknown) (unknown) Exam Narrative: (uni ts unknown) (unknown) (unknown) (no date) (unknown) (unknown) Exam (units unknown) (unknown) (unknown) (no date) (unknown) (unknown) FINDINGS:? (units unknown) (unknown) (unknown) (no date) (unknown) (unknown) GI: abdomen so ft, nondistended, without CVA tenderness bilaterally. (units unknown) (unknown) (unknown) (no date) (unknown) (unknown) General (units unknown) (unknown) (unknown) (no date) (unknown) (unknown) General: Pleas ant, sitting upright, anxious, appears to be in acute distress, (units unknown) (unknown) (unknown) (no date) (unknown) (unknown) HEENT: symmetr ical facial expressions, moist mucous membranes, neck is supple (units unknown) (unknown) (unknown) (no date) (unknown) (unknown) HPI - Back Pain/Inju ry (units unknown) (unknown) (unknown) (no date) (unknown) (unknown) HPI Narrative: (unit s unknown) (unknown) (unknown) (no date) (unknown) (unknown) History of Pre sent Illness (units unknown) (unknown) (unknown) (no date) (unknown) (unknown) Hydromorphone HCl (Hydromorphone 1 Mg Inj) 1 mg IM NOW ONE (units unknown) (unknown) (unknown) (no date) (unknown) (unknown) I have indepen dently reviewed the patient's vital signs and nursing notes as (units unknown) (unknown) (unknown) (no date) (unknown) (unknown) I was immediat carito available in the department for consultation. Documentation (units unknown) (unknown) (unknown) (no date) (unknown) (unknown) IMPRESSION:? (units unknown) (unknown) (unknown) (no date) (unknown) (unknown) INDICATIONS:? New lower extremity weakness, pain exacerbation after twist (units unknown) (unknown) (unknown) (no date) (unknown) (unknown) Image quality: ? Excellent.? (units unknown) (unknown) (unknown) (no date) (unknown) (unknown) Imaging Data (units unknown) (unknown) (unknown) (no date) (unknown) (unknown) Independent hi storian: Patient (units unknown) (unknown) (unknown) (no date) (unknown) (unknown) Initial Vital Signs (units unknown) (unknown) (unknown) (no date) (unknown) (unknown) Initial Vital Signs: (units unknown) (unknown) (unknown) (no date) (unknown) (unknown) Instructions: DI for Low Back Pain (units unknown) (unknown) (unknown) (no date) (unknown) (unknown) [address] [address] (units unknown) (unknown) (unknown) (no date) (unknown) (unknown) [facility] (uni ts unknown) (unknown) (unknown) (no date) (unknown) (unknown) Ketorolac Trom ethamine (Ketorolac 30 Mg/Ml Vial) 30 mg IM NOW ONE (units unknown) (unknown) (unknown) (no date) (unknown) (unknown) L1-L2:? Disc s pace is preserved.? No central or foraminal stenosis (units unknown) (unknown) (unknown) (no date) (unknown) (unknown) L2-L3:? Disc s pace narrowing and circumferential disc bulge results in moderate (units unknown) (unknown) (unknown) (no date) (unknown) (unknown) L3, L4 and L5 decompressive laminectomies with interbody fusion and posterior (units unknown) (unknown) (unknown) (no date) (unknown) (unknown) L3-L4:? Discec madonna and fusion with posterior decompression.? No central (units unknown) (unknown) (unknown) (no date) (unknown) (unknown) L4-L5:? Discec maodnna and fusion with posterior decompression.? No central (units unknown) (unknown) (unknown) (no date) (unknown) (unknown) L5-S1:? Discec madonna and fusion with posterior decompression.? No central (units unknown) (unknown) (unknown) (no date) (unknown) (unknown) Last Admin: 13:55 Dose: 750 mg (units unknown) (unknown) (unknown) (no date) (unknown) (unknown) Last Admin: 13:56 Dose: 1 each (units unknown) (unknown) (unknown) (no date) (unknown) (unknown) Last Admin: 13:58 Dose: 1 mg (units unknown) (unknown) (unknown) (no date) (unknown) (unknown) Last Admin: 15:10 Dose: 1 tab (units unknown) (unknown) (unknown) (no date) (unknown) (unknown) Last Admin: 16:00 Dose: 30 mg (units unknown) (unknown) (unknown) (no date) (unknown) (unknown) Lidocaine (Lid ocaine Patch 1 Each Adh..Patch) 1 each TOP NOW ONE (units unknown) (unknown) (unknown) (no date) (unknown) (unknown) Loc: ED (units unknown) (unknown) (unknown) (no date) (unknown) (unknown) Lower lumbar s pine interbody fusion, posterior decompression and (units unknown) (unknown) (unknown) (no date) (unknown) (unknown) Loraine Charles MD [Physician] (units unknown) (unknown) (unknown) (no date) (unknown) (unknown) Lumbar back pa in, Degenerative disc disease, lumbar, Central stenosis of spinal (units unknown) (unknown) (unknown) (no date) (unknown) (unknown) [place] for his pain. (units unknown) (unknown) (unknown) (no date) (unknown) (unknown) MDM - Back Pain/Inju ry (units unknown) (unknown) (unknown) (no date) (unknown) (unknown) MDM Narrative (units unknown) (unknown) (unknown) (no date) (unknown) (unknown) MIPS: This enc ounter doesn't have any diagnosis' associated with MIPS criteria. (units unknown) (unknown) (unknown) (no date) (unknown) (unknown) MR Lumbar Spine: (un its unknown) (unknown) (unknown) (no date) (unknown) (unknown) MR#: [id number] (uni ts unknown) (unknown) (unknown) (no date) (unknown) (unknown) MRI Results wi thout acute abnormality. Patient was provided a copy of his (units unknown) (unknown) (unknown) (no date) (unknown) (unknown) MSK: moves all extremities, no weakness, normal tone, ambulatory without deficit (units unknown) (unknown) (unknown) (no date) (unknown) (unknown) Magnetic Reson ance Report (units unknown) (unknown) (unknown) (no date) (unknown) (unknown) Medical decisi on making narrative: (units unknown) (unknown) (unknown) (no date) (unknown) (unknown) Medication Instructions Recorded (units unknown) (unknown) (unknown) (no date) (unknown) (unknown) Methocarbamol (Methocarbamol 500 Mg Tablet) 750 mg PO NOW ONE (units unknown) (unknown) (unknown) (no date) (unknown) (unknown) Moderate left and right foraminal stenosis (units unknown) (unknown) (unknown) (no date) (unknown) (unknown) Alexander Danielle MD [Physician] (units unknown) (unknown) (unknown) (no date) (unknown) (unknown) Narrative (units unknown) (unknown) (unknown) (no date) (unknown) (unknown) Neuro: normal speech and cognition, A+O x3 (units unknown) (unknown) (unknown) (no date) (unknown) (unknown) New (units unknown) (unknown) (unknown) (no date) (unknown) (unknown) No Action (units unknown) (unknown) (unknown) (no date) (unknown) (unknown) No Known Drug Allergies Allergy Verified 09/10/21 16:42 (units unknown) (unknown) (unknown) (no date) (unknown) (unknown) Noncontrast sa gittal T1 spin echo and T2 fast echo, sagittal STIR, and T2 fast (units unknown) (unknown) (unknown) (no date) (unknown) (unknown) Ordered: (units unknown) (unknown) (unknown) (no date) (unknown) (unknown) Ordering Provi kael: Sahara Roman (units unknown) (unknown) (unknown) (no date) (unknown) (unknown) Orders (units unknown) (unknown) (unknown) (no date) (unknown) (unknown) Orthopedics on June 13. He denies urinary frequency, urgency, or retention. (units unknown) (unknown) (unknown) (no date) (unknown) (unknown) Oxycodone/Acet aminophe n (Oxycodone/Acetaminoph en 5/325 Tablet) 1 tab PO NOW ONE (units unknown) (unknown) (unknown) (no date) (unknown) (unknown) Oxygen Deliver y Method Room Air 06/07/22 13:07 (units unknown) (unknown) (unknown) (no date) (unknown) (unknown) Oxygen Deliver y Method Room Air (units unknown) (unknown) (unknown) (no date) (unknown) (unknown) PROCEDURE:? MR LUMBAR SPINE WO CON (units unknown) (unknown) (unknown) (no date) (unknown) (unknown) Paraspinous So ft Tissues:? No paravertebral masses.? (units unknown) (unknown) (unknown) (no date) (unknown) (unknown) Patient Dispos ition: Home (units unknown) (unknown) (unknown) (no date) (unknown) (unknown) Patient History (uni ts unknown) (unknown) (unknown) (no date) (unknown) (unknown) Patient is brenda ropriate for outpatient management. (units unknown) (unknown) (unknown) (no date) (unknown) (unknown) Patient: Neida Kishor Eduardo MR#: [id number] (units unknown) (unknown) (unknown) (no date) (unknown) (unknown) Patient: Kishor Carrasquillo (units unknown) (unknown) (unknown) (no date) (unknown) (unknown) Pertinent Imag ing reviewed: MR lumbar spine without acute abnormality (units unknown) (unknown) (unknown) (no date) (unknown) (unknown) Prescriptions: (unit s unknown) (unknown) (unknown) (no date) (unknown) (unknown) Previous Rx's (units unknown) (unknown) (unknown) (no date) (unknown) (unknown) Procedure: MR lumbar spine wo con (units unknown) (unknown) (unknown) (no date) (unknown) (unknown) [facility] [Provider Group] (units unknown) (unknown) (unknown) (no date) (unknown) (unknown) Pulse Oximetry 97 06/07/22 13:07 (units unknown) (unknown) (unknown) (no date) (unknown) (unknown) Pulse Oximetry 97 (u nits unknown) (unknown) (unknown) (no date) (unknown) (unknown) Pulse Rate 86 06/07/22 13:07 (units unknown) (unknown) (unknown) (no date) (unknown) (unknown) Pulse Rate 86 (units unknown) (unknown) (unknown) (no date) (unknown) (unknown) Questions are addressed and there is agreement with the plan and for follow-up. (units unknown) (unknown) (unknown) (no date) (unknown) (unknown) ROS Unobtainab le: All systems reviewed + are unremarkable except as noted in HPI (units unknown) (unknown) (unknown) (no date) (unknown) (unknown) Radiologist's Impression: (units unknown) (unknown) (unknown) (no date) (unknown) (unknown) Referrals: (units unknown) (unknown) (unknown) (no date) (unknown) (unknown) Related Data (units unknown) (unknown) (unknown) (no date) (unknown) (unknown) Respiratory Ra te 22 06/07/22 13:07 (units unknown) (unknown) (unknown) (no date) (unknown) (unknown) Respiratory Rate 22 (units unknown) (unknown) (unknown) (no date) (unknown) (unknown) Respiratory: n ormal work of breathing, without tachypnea or hypoxia. (units unknown) (unknown) (unknown) (no date) (unknown) (unknown) Review of Systems (u nits unknown) (unknown) (unknown) (no date) (unknown) (unknown) Reviewed vital s signs and nursing notes. (units unknown) (unknown) (unknown) (no date) (unknown) (unknown) Rx Instructions: (un its unknown) (unknown) (unknown) (no date) (unknown) (unknown) See Rx Instruc tions .ROUTE .COMPLEX Qty: 21 0RF (units unknown) (unknown) (unknown) (no date) (unknown) (unknown) Signed By: (units unknown) (unknown) (unknown) (no date) (unknown) (unknown) Signed (units unknown) (unknown) (unknown) (no date) (unknown) (unknown) Skin: brisk ca pillary refill, without rash or wound (units unknown) (unknown) (unknown) (no date) (unknown) (unknown) Smoking Status : Never smoker (units unknown) (unknown) (unknown) (no date) (unknown) (unknown) Social History (units unknown) (unknown) (unknown) (no date) (unknown) (unknown) Social conside rations that may affect disposition: none (units unknown) (unknown) (unknown) (no date) (unknown) (unknown) Source: patient (uni ts unknown) (unknown) (unknown) (no date) (unknown) (unknown) Spinal Cord:? Conus medullaris terminates at the L1 level.? Visualized cord (units unknown) (unknown) (unknown) (no date) (unknown) (unknown) Stand Alone Fo lorraine: Patient Portal/API (units unknown) (unknown) (unknown) (no date) (unknown) (unknown) Stated Complai nt: back pain worsening visited t-4 (units unknown) (unknown) (unknown) (no date) (unknown) (unknown) States he had muscle spasms Sunday and Sunday over this weekend but does not (units unknown) (unknown) (unknown) (no date) (unknown) (unknown) Stop: 06/07/22 13:36 (units unknown) (unknown) (unknown) (no date) (unknown) (unknown) Stop: 06/07/22 14:39 (units unknown) (unknown) (unknown) (no date) (unknown) (unknown) Stop: 06/07/22 15:49 (units unknown) (unknown) (unknown) (no date) (unknown) (unknown) Substance Use Type: does not use (units unknown) (unknown) (unknown) (no date) (unknown) (unknown) T12-L1:? Disc space is preserved.? No central or foraminal stenosis. (units unknown) (unknown) (unknown) (no date) (unknown) (unknown) TECHNIQUE:? (units unknown) (unknown) (unknown) (no date) (unknown) (unknown) Temperature 97 .1 F L 06/07/22 13:07 (units unknown) (unknown) (unknown) (no date) (unknown) (unknown) Temperature 97.1 F L (units unknown) (unknown) (unknown) (no date) (unknown) (unknown) There are no a cute changes on your MRI today which is great news. The prior (units unknown) (unknown) (unknown) (no date) (unknown) (unknown) This is a 47-y ear-old male with a longstanding history of lumbar issues.?Has had (units unknown) (unknown) (unknown) (no date) (unknown) (unknown) Time Seen by Wesley gann: 06/07/22 13:15 (units unknown) (unknown) (unknown) (no date) (unknown) (unknown) Vital Signs - 8 hr ( units unknown) (unknown) (unknown) (no date) (unknown) (unknown) Vital Signs (units unknown) (unknown) (unknown) (no date) (unknown) (unknown) Vital signs: (units unknown) (unknown) (unknown) (no date) (unknown) (unknown) [ X] New medic ation prescriptions sent to your pharmacy: [ [facility]] (units unknown) (unknown) (unknown) (no date) (unknown) (unknown) [ ] New medica tion written as a paper prescription (units unknown) (unknown) (unknown) (no date) (unknown) (unknown) [ ] No new med ications given (units unknown) (unknown) (unknown) (no date) (unknown) (unknown) a dose pack (Abilio llamas (Adria)) #21 ea (units unknown) (unknown) (unknown) (no date) (unknown) (unknown) additional [place] (units unknown) (unknown) (unknown) (no date) (unknown) (unknown) ago and states that his pain has not gotten better. He sees Anesis for (units unknown) (unknown) (unknown) (no date) (unknown) (unknown) alcohol intake frequency: 0-2 drinks per day (units unknown) (unknown) (unknown) (no date) (unknown) (unknown) and below (units unknown) (unknown) (unknown) (no date) (unknown) (unknown) appointment. L et them know you were seen in the Emergency Department and that we (units unknown) (unknown) (unknown) (no date) (unknown) (unknown) are having dif ficulty sleeping. I have given you Percocet instead of (units unknown) (unknown) (unknown) (no date) (unknown) (unknown) asked that you be seen for follow-up. We will electronically transmit a record (units unknown) (unknown) (unknown) (no date) (unknown) (unknown) atraumatic. He completed a steroid pack and was prescribed hydrocodone. He (units unknown) (unknown) (unknown) (no date) (unknown) (unknown) baclofen 20 mg tablet 20 mg PO TID #21 tabs 09/10/21 (units unknown) (unknown) (unknown) (no date) (unknown) (unknown) baclofen 20 mg table t (units unknown) (unknown) (unknown) (no date) (unknown) (unknown) benefit from f ollow-up with orthopedic surgery or Dr. Umana for pain. Please (units unknown) (unknown) (unknown) (no date) (unknown) (unknown) bilateral fora solo stenosis (units unknown) (unknown) (unknown) (no date) (unknown) (unknown) canal (units unknown) (unknown) (unknown) (no date) (unknown) (unknown) cauda equina, epidural hematoma, ligamental injury, strain/sprain, muscular (units unknown) (unknown) (unknown) (no date) (unknown) (unknown) central stenosis. (u nits unknown) (unknown) (unknown) (no date) (unknown) (unknown) central stenos is.? Hypertrophic facet joints contribute to moderate bilateral (units unknown) (unknown) (unknown) (no date) (unknown) (unknown) change from (units unknown) (unknown) (unknown) (no date) (unknown) (unknown) complicated pa in management in [place], [place]. He has seen Dr. Umana in (units unknown) (unknown) (unknown) (no date) (unknown) (unknown) concerning sym ptoms, such as [fever greater than 101F, chills, worsening pain, (units unknown) (unknown) (unknown) (no date) (unknown) (unknown) course of medi cations to use for the meantime. I will continue your steroids (units unknown) (unknown) (unknown) (no date) (unknown) (unknown) degenerative d isc disease and patient midline low back pain associated muscle (units unknown) (unknown) (unknown) (no date) (unknown) (unknown) demonstrates (units unknown) (unknown) (unknown) (no date) (unknown) (unknown) disc disease a nd arthropathy with moderate to severe central canal stenosis. (units unknown) (unknown) (unknown) (no date) (unknown) (unknown) emergency depa rtment 4 days ago and had lumbar spine x-rays without changes. He (units unknown) (unknown) (unknown) (no date) (unknown) (unknown) establish care with one of the [facility] primary care providers. (units unknown) (unknown) (unknown) (no date) (unknown) (unknown) follow-up with your pain clinic as soon as possible. I have given you a short (units unknown) (unknown) (unknown) (no date) (unknown) (unknown) for this week and encourage you to use muscle relaxers for severe pain or if you (units unknown) (unknown) (unknown) (no date) (unknown) (unknown) foraminal (units unknown) (unknown) (unknown) (no date) (unknown) (unknown) from prior exam (uni ts unknown) (unknown) (unknown) (no date) (unknown) (unknown) had subjective weakness to the lower extremities but was able to lift his legs (units unknown) (unknown) (unknown) (no date) (unknown) (unknown) has been revie wed. I agree with assessment and plan. (units unknown) (unknown) (unknown) (no date) (unknown) (unknown) have muscle sp asms at this time. Is currently on his steroid pack from 4 days (units unknown) (unknown) (unknown) (no date) (unknown) (unknown) he states that when he slipped a few weeks ago on the deck, he had a twisting (units unknown) (unknown) (unknown) (no date) (unknown) (unknown) hydrocodone 5 mg-acetaminophen 325 1 tab PO Q4-6H PRN pain #10 tabs 06/04/22 (units unknown) (unknown) (unknown) (no date) (unknown) (unknown) hydrocodone 5 mg-acetaminophen 325 1 tab PO Q4-6H PRN pain #20 tabs 05/27/22 (units unknown) (unknown) (unknown) (no date) (unknown) (unknown) hydrocodone th is time, please use these only for severe pain and take them with (units unknown) (unknown) (unknown) (no date) (unknown) (unknown) hydrocodone-ac etaminop hen 5-325 mg tablet (units unknown) (unknown) (unknown) (no date) (unknown) (unknown) ibuprofen and Tylenol every 6 hours. Use lidocaine patches and multi modes of (units unknown) (unknown) (unknown) (no date) (unknown) (unknown) instrumentatio n, stable (units unknown) (unknown) (unknown) (no date) (unknown) (unknown) leave on most painful area for up to 12 hrs (units unknown) (unknown) (unknown) (no date) (unknown) (unknown) lidocaine 5 % topical patch 1 patch topical DAILY #30 ea 06/07/22 (units unknown) (unknown) (unknown) (no date) (unknown) (unknown) lidocaine [Lid oderm] 5 % adhesive patch,medicated (units unknown) (unknown) (unknown) (no date) (unknown) (unknown) lidocaine patc h and Percocet tab (units unknown) (unknown) (unknown) (no date) (unknown) (unknown) likely has an appointment with on 06/13/[address] Mauro another (units unknown) (unknown) (unknown) (no date) (unknown) (unknown) may be performed.? ( units unknown) (unknown) (unknown) (no date) (unknown) (unknown) methocarbamol 750 mg tablet 750 mg PO Q8H PRN muscle pain #30 06/07/22 (units unknown) (unknown) (unknown) (no date) (unknown) (unknown) methocarbamol 750 mg tablet (units unknown) (unknown) (unknown) (no date) (unknown) (unknown) methylpredniso lone 4 mg tablets in See Rx Instructions PO .COMPLEX 05/27/22 (units unknown) (unknown) (unknown) (no date) (unknown) (unknown) methylpredniso lone 4 mg tablets in See Rx Instructions PO .COMPLEX 06/04/22 (units unknown) (unknown) (unknown) (no date) (unknown) (unknown) methylpredniso lone [Medrol (Adria)] 4 mg tablets,dose pack (units unknown) (unknown) (unknown) (no date) (unknown) (unknown) mg tablet (Endocet) (units unknown) (unknown) (unknown) (no date) (unknown) (unknown) mg tablet (units unknown) (unknown) (unknown) (no date) (unknown) (unknown) motion and fee ls like something is wrong because it is so painful. He takes (units unknown) (unknown) (unknown) (no date) (unknown) (unknown) multiple surge andria in the past.?Has hardware in place.? He was here in the (units unknown) (unknown) (unknown) (no date) (unknown) (unknown) no focal weakn ess, nontender to his lumbar spine, paraspinal musculature is (units unknown) (unknown) (unknown) (no date) (unknown) (unknown) normal signal and size.? (units unknown) (unknown) (unknown) (no date) (unknown) (unknown) occurred appro ximately 3 weeks ago. Patient understands to follow-up with his (units unknown) (unknown) (unknown) (no date) (unknown) (unknown) of today's not e if your PCP is in our system (units unknown) (unknown) (unknown) (no date) (unknown) (unknown) orally per pac otilia directions (units unknown) (unknown) (unknown) (no date) (unknown) (unknown) other red flag symptoms and requested a repeat MRI for a twisting injury which (units unknown) (unknown) (unknown) (no date) (unknown) (unknown) oxycodone 5 mg tablet 5 mg PO Q6H PRN pain #14 tabs 03/09/22 (units unknown) (unknown) (unknown) (no date) (unknown) (unknown) oxycodone 5 mg table t (units unknown) (unknown) (unknown) (no date) (unknown) (unknown) oxycodone-acet aminophe n 5 mg-325 1 tab PO Q6H PRN pain #14 tabs 06/07/22 (units unknown) (unknown) (unknown) (no date) (unknown) (unknown) oxycodone-acet aminophe n [Endocet] 5-325 mg tablet (units unknown) (unknown) (unknown) (no date) (unknown) (unknown) pain clinic in [place], who is given contact information for his other (units unknown) (unknown) (unknown) (no date) (unknown) (unknown) pain relief to help you achieve better pain control. (units unknown) (unknown) (unknown) (no date) (unknown) (unknown) persistent vom iting or other bothersome symptoms]. (units unknown) (unknown) (unknown) (no date) (unknown) (unknown) prednisone 20 mg tablet 40 mg PO DAILY 5 days #10 tabs 06/07/22 (units unknown) (unknown) (unknown) (no date) (unknown) (unknown) prednisone 20 mg tablet (units unknown) (unknown) (unknown) (no date) (unknown) (unknown) prescribers an d encouraged to follow-up with them for further care. (units unknown) (unknown) (unknown) (no date) (unknown) (unknown) provided conta ct information for Dr. 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 (units unknown) (unknown) (unknown) (no date) (unknown) (unknown) severe (units unknown) (unknown) (unknown) (no date) (unknown) (unknown) spasm, radicul ar pain, spinal stenosis, osteoarthritis (units unknown) (unknown) (unknown) (no date) (unknown) (unknown) spin echo (units unknown) (unknown) (unknown) (no date) (unknown) (unknown) spinal surgeon for another opinion. His MRI suggests this is arthropathy and (units unknown) (unknown) (unknown) (no date) (unknown) (unknown) states that he is having a pain crisis, states it is just in his low back. (units unknown) (unknown) (unknown) (no date) (unknown) (unknown) stenosis (units unknown) (unknown) (unknown) (no date) (unknown) (unknown) stenosis.? Mild (uni ts unknown) (unknown) (unknown) (no date) (unknown) (unknown) stenosis.? (units unknown) (unknown) (unknown) (no date) (unknown) (unknown) surgeries are stable without abnormality. This is a pain crisis in you may (units unknown) (unknown) (unknown) (no date) (unknown) (unknown) tabs (units unknown) (unknown) (unknown) (no date) (unknown) (unknown) tense (units unknown) (unknown) (unknown) (no date) (unknown) (unknown) tension. He is not have radicular symptoms today, no focal weakness, without (units unknown) (unknown) (unknown) (no date) (unknown) (unknown) the past, Dr. Baldwin from [facility], and is scheduled to see Dr. Charles with [facility] (units unknown) (unknown) (unknown) (no date) (unknown) (unknown) the prior exam .? No retropulsed fracture fragment. (units unknown) (unknown) (unknown) (no date) (unknown) (unknown) through the [facility] spine.? In cases with scoliosis, additional coronal T2 fast (units unknown) (unknown) (unknown) (no date) (unknown) (unknown) to severe (units unknown) (unknown) (unknown) (no date) (unknown) (unknown) up off the bed . X-rays did not show acute pathology at the time and hardware (units unknown) (unknown) (unknown) (no date) (unknown) (unknown) was in place. Did not have urinary symptoms or bowel changes and was (units unknown) (unknown) (unknown) (no date) (unknown) (unknown) well as prior records if available. (units unknown) (unknown) (unknown) (no date) (unknown) (unknown) well groomed, afebri le (units unknown) (unknown) Result panel 15 (unknown) (no date) (unknown) (unknown) (no value) (units unknown) (unknown) (unknown) (no date) (unknown) (unknown) (0=absent, 1=s light response, 2=brisk/normal, 3=very brisk, 4=clonus) (units unknown) (unknown) (unknown) (no date) (unknown) (unknown) (segments are from the International Standards for Neurological Classification (units unknown) (unknown) (unknown) (no date) (unknown) (unknown) - FADIR: [(-/+ ) on the R side / L side / bilaterally] (units unknown) (unknown) (unknown) (no date) (unknown) (unknown) - Hip ROM is: [WNL / limited and painful on the R sided / L side / bilaterally] (units unknown) (unknown) (unknown) (no date) (unknown) (unknown) - Lumbar facet loading: [(-/+) on the R side / L side / bilaterally] (units unknown) (unknown) (unknown) (no date) (unknown) (unknown) - SIJ provocat ion testing: [ (+/-) Iris's finger test, posterior thrust, (units unknown) (unknown) (unknown) (no date) (unknown) (unknown) - Straight Leg Raise: [(-/+) on the L side / R side / bilaterally] (units unknown) (unknown) (unknown) (no date) (unknown) (unknown) -to-moderate b ilateral foraminal stenosis (units unknown) (unknown) (unknown) (no date) (unknown) (unknown) 06/05/22 (units unknown) (unknown) (unknown) (no date) (unknown) (unknown) 990 (units unknown) (unknown) (unknown) (no date) (unknown) (unknown) ? Inspection - ? No gross appendicular or axial deformities (units unknown) (unknown) (unknown) (no date) (unknown) (unknown) ? Palpation -? [Tender to palpation of / No tenderness to palpation] (units unknown) (unknown) (unknown) (no date) (unknown) (unknown) ? ROM - [Lumba r flexion/ extension/ lateral rotation is limited due to pain / (units unknown) (unknown) (unknown) (no date) (unknown) (unknown) ? Special tests (uni ts unknown) (unknown) (unknown) (no date) (unknown) (unknown) ? (units unknown) (unknown) (unknown) (no date) (unknown) (unknown) ? Acetaminophen (units unknown) (unknown) (unknown) (no date) (unknown) (unknown) ? Antidepressants (units unknown) (unknown) (unknown) (no date) (unknown) (unknown) ? Antiepileptics (units unknown) (unknown) (unknown) (no date) (unknown) (unknown) ? Mu scle Relaxants (units unknown) (unknown) (unknown) (no date) (unknown) (unknown) ? NSAIDs ( units unknown) (unknown) (unknown) (no date) (unknown) (unknown) ? Opioids (units unknown) (unknown) (unknown) (no date) (unknown) (unknown) ? Steroids (units unknown) (unknown) (unknown) (no date) (unknown) (unknown) ? Topicals (units unknown) (unknown) (unknown) (no date) (unknown) (unknown) Age/Sex: 47 / M Date of Service: (units unknown) (unknown) (unknown) (no date) (unknown) (unknown) Aggravating fa ctors include: (units unknown) (unknown) (unknown) (no date) (unknown) (unknown) Alignment and Curvature:? There is normal bony alignment.? (units unknown) (unknown) (unknown) (no date) (unknown) (unknown) All other syst ems reviewed and are unremarkable except as noted in HPI. (units unknown) (unknown) (unknown) (no date) (unknown) (unknown) Allergies (units unknown) (unknown) (unknown) (no date) (unknown) (unknown) [place] [address] (units unknown) (unknown) (unknown) (no date) (unknown) (unknown) Approved by: Vale Aden M.D. on 06/07/2022 at 14:37? (units unknown) (unknown) (unknown) (no date) (unknown) (unknown) Attending Dr: Dhiraj Daigle MD (units unknown) (unknown) (unknown) (no date) (unknown) (unknown) [facility] n[facility] Downgoing (units unknown) (unknown) (unknown) (no date) (unknown) (unknown) Bone Marrow:? Wedge-shaped compression fracture T12 without marrow edema or (units unknown) (unknown) (unknown) (no date) (unknown) (unknown) Bowel and blad kael: No loss of control (units unknown) (unknown) (unknown) (no date) (unknown) (unknown) COMPARISON:? [facility], MR, MR LUMBAR SPINE WO CON, 03/09/2022, 20:09. (units unknown) (unknown) (unknown) (no date) (unknown) (unknown) Cardiovascular : No edema or cyanosis. 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 (units unknown) (unknown) (unknown) (no date) (unknown) (unknown) Details: (units unknown) (unknown) (unknown) (no date) (unknown) (unknown) Documented By: Dhiraj Daigle MD 06/13/22 1523 (units unknown) (unknown) (unknown) (no date) (unknown) (unknown) Draft (units unknown) (unknown) (unknown) (no date) (unknown) (unknown) Exam Narrative (unit s unknown) (unknown) (unknown) (no date) (unknown) (unknown) Exam Narrative: (uni ts unknown) (unknown) (unknown) (no date) (unknown) (unknown) Exam (units unknown) (unknown) (unknown) (no date) (unknown) (unknown) Mo DAVIDSON n's, Pelvic rocking on the R/L side / bilaterally] (units unknown) (unknown) (unknown) (no date) (unknown) (unknown) FINDINGS:? (units unknown) (unknown) (unknown) (no date) (unknown) (unknown) Gait/Station - [Non-antalgic gait. Heel (L5 strength) and toe (S1 strength) (units unknown) (unknown) (unknown) (no date) (unknown) (unknown) General: Well-nourished, well-developed, [sex] in no acute distress (units unknown) (unknown) (unknown) (no date) (unknown) (unknown) HPI (units unknown) (unknown) (unknown) (no date) (unknown) (unknown) IMPRESSION:? (units unknown) (unknown) (unknown) (no date) (unknown) (unknown) INDICATIONS:? New lower extremity weakness, pain exacerbation after twist (units unknown) (unknown) (unknown) (no date) (unknown) (unknown) Image quality: ? Excellent.? (units unknown) (unknown) (unknown) (no date) (unknown) (unknown) Injections: (units unknown) (unknown) (unknown) (no date) (unknown) (unknown) Intake (units unknown) (unknown) (unknown) (no date) (unknown) (unknown) Intervention: Date: Outcome: (units unknown) (unknown) (unknown) (no date) (unknown) (unknown) L1-L2:? Disc s pace is preserved.? No central or foraminal stenosis (units unknown) (unknown) (unknown) (no date) (unknown) (unknown) L2 Hip Flexion 5/5 5/5? (units unknown) (unknown) (unknown) (no date) (unknown) (unknown) L2-L3:? Disc s pace narrowing and circumferential disc bulge results in moderate (units unknown) (unknown) (unknown) (no date) (unknown) (unknown) L3 Knee Extens ion 5/5 5/5 (units unknown) (unknown) (unknown) (no date) (unknown) (unknown) L3, L4 and L5 decompressive laminectomies with interbody fusion and posterior (units unknown) (unknown) (unknown) (no date) (unknown) (unknown) L3-L4:? Discec madonna and fusion with posterior decompression.? No central (units unknown) (unknown) (unknown) (no date) (unknown) (unknown) L4 Ankle Dorsi flexion 5/5 5/5 (units unknown) (unknown) (unknown) (no date) (unknown) (unknown) L4 Patella 2+ 2 (uni ts unknown) (unknown) (unknown) (no date) (unknown) (unknown) L4-L5:? Discec madonna and fusion with posterior decompression.? No central (units unknown) (unknown) (unknown) (no date) (unknown) (unknown) L5 Long Toe Ex tension 5/5 5/5 (units unknown) (unknown) (unknown) (no date) (unknown) (unknown) L5-S1:? Discec madonna and fusion with posterior decompression.? No central (units unknown) (unknown) (unknown) (no date) (unknown) (unknown) Loc: PAIN (units unknown) (unknown) (unknown) (no date) (unknown) (unknown) Lower lumbar s pine interbody fusion, posterior decompression and (units unknown) (unknown) (unknown) (no date) (unknown) (unknown) MSK: System re viewed and no additional complaints, except as documented. (units unknown) (unknown) (unknown) (no date) (unknown) (unknown) Medications: (units unknown) (unknown) (unknown) (no date) (unknown) (unknown) Moderate left and right foraminal stenosis (units unknown) (unknown) (unknown) (no date) (unknown) (unknown) Motor (units unknown) (unknown) (unknown) (no date) (unknown) (unknown) Musculoskeletal: (un its unknown) (unknown) (unknown) (no date) (unknown) (unknown) Neuro: System reviewed and no additional complaints, except as documented. (units unknown) (unknown) (unknown) (no date) (unknown) (unknown) Neurologic: (units unknown) (unknown) (unknown) (no date) (unknown) (unknown) No Known Drug Allergies Allergy (Verified 09/10/21 16:42) (units unknown) (unknown) (unknown) (no date) (unknown) (unknown) Noncontrast sa gittal T1 spin echo and T2 fast echo, sagittal STIR, and T2 fast (units unknown) (unknown) (unknown) (no date) (unknown) (unknown) Numbness/Tingling: ( units unknown) (unknown) (unknown) (no date) (unknown) (unknown) Objective Data (unit s unknown) (unknown) (unknown) (no date) (unknown) (unknown) Objective Data: (uni ts unknown) (unknown) (unknown) (no date) (unknown) (unknown) Onset/Context of parish n: (units unknown) (unknown) (unknown) (no date) (unknown) (unknown) Onset: (units unknown) (unknown) (unknown) (no date) (unknown) (unknown) 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 MR LUMBAR SPINE WO CON (units unknown) (unknown) (unknown) (no date) (unknown) (unknown) PT: Last PT wa s on []. [He/she] has attended for [sessions] (units unknown) (unknown) (unknown) (no date) (unknown) (unknown) Pain Visit (units unknown) (unknown) (unknown) (no date) (unknown) (unknown) Pain location/Radiation: (units unknown) (unknown) (unknown) (no date) (unknown) (unknown) Pain rating: / 10 today, /10 at worst (units unknown) (unknown) (unknown) (no date) (unknown) (unknown) Paraspinous So ft Tissues:? No paravertebral masses.? (units unknown) (unknown) (unknown) (no date) (unknown) (unknown) Patient: Kishor Carrasquillo MR#: [id number] (units unknown) (unknown) (unknown) (no date) (unknown) (unknown) Pertinent medi cations include: (units unknown) (unknown) (unknown) (no date) (unknown) (unknown) Previous pain treatments included: (units unknown) (unknown) (unknown) (no date) (unknown) (unknown) Psych: Appropr iate affect, answers questions appropriately (units unknown) (unknown) (unknown) (no date) (unknown) (unknown) Quality and ti gerri of pain: (units unknown) (unknown) (unknown) (no date) (unknown) (unknown) ROS Narrative (units unknown) (unknown) (unknown) (no date) (unknown) (unknown) ROS Narrative: (unit s unknown) (unknown) (unknown) (no date) (unknown) (unknown) ROS (units unknown) (unknown) (unknown) (no date) (unknown) (unknown) Reason For Visit (un its unknown) (unknown) (unknown) (no date) (unknown) (unknown) Red flag symptoms: ( units unknown) (unknown) (unknown) (no date) (unknown) (unknown) Reflex Right Left (u nits unknown) (unknown) (unknown) (no date) (unknown) (unknown) Reflexes: (units unknown) (unknown) (unknown) (no date) (unknown) (unknown) Relieving fact ors include: (units unknown) (unknown) (unknown) (no date) (unknown) (unknown) Respiratory: Non-labored breathing pattern on RA. No respiratory distress (units unknown) (unknown) (unknown) (no date) (unknown) (unknown) S1 Achilles 2+ 2 (un its unknown) (unknown) (unknown) (no date) (unknown) (unknown) S1 Ankle Plantarflexion 5/5 5/5 (units unknown) (unknown) (unknown) (no date) (unknown) (unknown) Saddle anesthe marina: denies (units unknown) (unknown) (unknown) (no date) (unknown) (unknown) Segment Action Right Left (units unknown) (unknown) (unknown) (no date) (unknown) (unknown) Segment Reflex Right Left (units unknown) (unknown) (unknown) (no date) (unknown) (unknown) Sensory -? Int act to light touch of bilateral lower extremities. Allodynia (units unknown) (unknown) (unknown) (no date) (unknown) (unknown) Signed By: (units unknown) (unknown) (unknown) (no date) (unknown) (unknown) Skin: No appre ciable rashes or skin breakdown (units unknown) (unknown) (unknown) (no date) (unknown) (unknown) Smoking Status : Never smoker (units unknown) (unknown) (unknown) (no date) (unknown) (unknown) Spinal Cord:? Conus medullaris terminates at the L1 level.? Visualized cord (units unknown) (unknown) (unknown) (no date) (unknown) (unknown) Standing: (units unknown) (unknown) (unknown) (no date) (unknown) (unknown) Surgery: Patie nt is s/p (units unknown) (unknown) (unknown) (no date) (unknown) (unknown) T12-L1:? Disc space is preserved.? No central or foraminal stenosis. (units unknown) (unknown) (unknown) (no date) (unknown) (unknown) TECHNIQUE:? (units unknown) (unknown) (unknown) (no date) (unknown) (unknown) [facility] (units unknown) (unknown) (unknown) (no date) (unknown) (unknown) This note may have been all or partially generated using voice recognition (units unknown) (unknown) (unknown) (no date) (unknown) (unknown) Tobacco + Subs tance Use (units unknown) (unknown) (unknown) (no date) (unknown) (unknown) Tobacco Status (unit s unknown) (unknown) (unknown) (no date) (unknown) (unknown) Today I have r eviewed available medical information in the patient's medical (units unknown) (unknown) (unknown) (no date) (unknown) (unknown) Upper Motor Ne uron Signs: (units unknown) (unknown) (unknown) (no date) (unknown) (unknown) 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 (units unknown) (unknown) (unknown) (no date) (unknown) (unknown) Weakness: denies (un its unknown) (unknown) (unknown) (no date) (unknown) (unknown) [name] is a [a ge, sex] with a history of [PMH] who presents for further (units unknown) (unknown) (unknown) (no date) (unknown) (unknown) bilateral fora solo stenosis (units unknown) (unknown) (unknown) (no date) (unknown) (unknown) central stenosis. (u nits unknown) (unknown) (unknown) (no date) (unknown) (unknown) central stenos is.? Hypertrophic facet joints contribute to moderate bilateral (units unknown) (unknown) (unknown) (no date) (unknown) (unknown) change from (units unknown) (unknown) (unknown) (no date) (unknown) (unknown) demonstrates (units unknown) (unknown) (unknown) (no date) (unknown) (unknown) evaluation of [CC]. (units unknown) (unknown) (unknown) (no date) (unknown) (unknown) foraminal (units unknown) (unknown) (unknown) (no date) (unknown) (unknown) from prior exam (uni ts unknown) (unknown) (unknown) (no date) (unknown) (unknown) have occurred. If there are any questions, please contact the Medical Records (units unknown) (unknown) (unknown) (no date) (unknown) (unknown) instrumentatio n, stable (units unknown) (unknown) (unknown) (no date) (unknown) (unknown) intravenous dr ug use, sustained glucocorticoid use, osteoporosis, or a focal (units unknown) (unknown) (unknown) (no date) (unknown) (unknown) may be performed.? ( units unknown) (unknown) (unknown) (no date) (unknown) (unknown) may occur. Occ asional wrong-word or 'sound-alike' substitutions may have (units unknown) (unknown) (unknown) (no date) (unknown) (unknown) negative, Hype ralgesia - negative (units unknown) (unknown) (unknown) (no date) (unknown) (unknown) neurological d eficit with progressive or disabling symptoms. (units unknown) (unknown) (unknown) (no date) (unknown) (unknown) normal signal and size.? (units unknown) (unknown) (unknown) (no date) (unknown) (unknown) occurred due t o the inherent limitations of voice recognition software. Please (units unknown) (unknown) (unknown) (no date) (unknown) (unknown) of Spinal Cord Injur y) (units unknown) (unknown) (unknown) (no date) (unknown) (unknown) or immunosuppr essive therapy, previous or current cancer diagnosis, history of (units unknown) (unknown) (unknown) (no date) (unknown) (unknown) read the note carefully and recognize, using context, where these substitutions (units unknown) (unknown) (unknown) (no date) (unknown) (unknown) record, includ ing relevant provider notes, laboratory work, and imaging. (units unknown) (unknown) (unknown) (no date) (unknown) (unknown) jules and (units unknown) (unknown) (unknown) (no date) (unknown) (unknown) screw instrume ntation also remains unchanged. (units unknown) (unknown) (unknown) (no date) (unknown) (unknown) severe (units unknown) (unknown) (unknown) (no date) (unknown) (unknown) software. Alth ough every effort is made to edit content, manager inside errors (units unknown) (unknown) (unknown) (no date) (unknown) (unknown) spin echo (units unknown) (unknown) (unknown) (no date) (unknown) (unknown) stability intact.] ( units unknown) (unknown) (unknown) (no date) (unknown) (unknown) stenosis (units unknown) (unknown) (unknown) (no date) (unknown) (unknown) stenosis.? Mild (uni ts unknown) (unknown) (unknown) (no date) (unknown) (unknown) stenosis.? (units unknown) (unknown) (unknown) (no date) (unknown) (unknown) the prior exam .? No retropulsed fracture fragment. (units unknown) (unknown) (unknown) (no date) (unknown) (unknown) through the tank mbar spine.? In cases with scoliosis, additional coronal T2 fast (units unknown) (unknown) (unknown) (no date) (unknown) (unknown) to severe (units unknown) (unknown) (unknown) (no date) (unknown) (unknown) walking intact . Tandem gait normal without evidence of ataxia. Lower quarter (units unknown) (unknown) Result panel 16 (unknown) (no date) (unknown) (unknown) (no value) (units unknown) (unknown) (unknown) (no date) (unknown) (unknown) (0=absent, 1=s light response, 2=brisk/normal, 3=very brisk, 4=clonus) (units unknown) (unknown) (unknown) (no date) (unknown) (unknown) (segments are from the International Standards for Neurological Classification (units unknown) (unknown) (unknown) (no date) (unknown) (unknown) - FADIR: [(-/+ ) on the R side / L side / bilaterally] (units unknown) (unknown) (unknown) (no date) (unknown) (unknown) - Hip ROM is: [WNL / limited and painful on the R sided / L side / bilaterally] (units unknown) (unknown) (unknown) (no date) (unknown) (unknown) - Lumbar facet loading: [(-/+) on the R side / L side / bilaterally] (units unknown) (unknown) (unknown) (no date) (unknown) (unknown) - SIJ provocat ion testing: [ (+/-) Iris's finger test, posterior thrust, (units unknown) (unknown) (unknown) (no date) (unknown) (unknown) - Straight Leg Raise: [(-/+) on the L side / R side / bilaterally] (units unknown) (unknown) (unknown) (no date) (unknown) (unknown) -to-moderate b ilateral foraminal stenosis (units unknown) (unknown) (unknown) (no date) (unknown) (unknown) 06/05/22 (units unknown) (unknown) (unknown) (no date) (unknown) (unknown) 05/22/2021, 2:31.? (u nits unknown) (unknown) (unknown) (no date) (unknown) (unknown) 990 (units unknown) (unknown) (unknown) (no date) (unknown) (unknown) ? Inspection - ? No gross appendicular or axial deformities (units unknown) (unknown) (unknown) (no date) (unknown) (unknown) ? Palpation -? [Tender to palpation of / No tenderness to palpation] (units unknown) (unknown) (unknown) (no date) (unknown) (unknown) ? ROM - [Lumba r flexion/ extension/ lateral rotation is limited due to pain / (units unknown) (unknown) (unknown) (no date) (unknown) (unknown) ? Special tests (uni ts unknown) (unknown) (unknown) (no date) (unknown) (unknown) ? (units unknown) (unknown) (unknown) (no date) (unknown) (unknown) ? Acetaminophen (units unknown) (unknown) (unknown) (no date) (unknown) (unknown) ? Antidepressants (units unknown) (unknown) (unknown) (no date) (unknown) (unknown) ? Antiepileptics (units unknown) (unknown) (unknown) (no date) (unknown) (unknown) ? Mu scle Relaxants (units unknown) (unknown) (unknown) (no date) (unknown) (unknown) ? NSAIDs ( units unknown) (unknown) (unknown) (no date) (unknown) (unknown) ? Opioids (units unknown) (unknown) (unknown) (no date) (unknown) (unknown) ? Steroids (units unknown) (unknown) (unknown) (no date) (unknown) (unknown) ? Topicals (units unknown) (unknown) (unknown) (no date) (unknown) (unknown) Age/Sex: 47 / M Date of Service: (units unknown) (unknown) (unknown) (no date) (unknown) (unknown) Aggravating fa ctors include: (units unknown) (unknown) (unknown) (no date) (unknown) (unknown) Alignment and Curvature:? There is normal bony alignment.? (units unknown) (unknown) (unknown) (no date) (unknown) (unknown) All other syst ems reviewed and are unremarkable except as noted in HPI. (units unknown) (unknown) (unknown) (no date) (unknown) (unknown) Allergies (units unknown) (unknown) (unknown) (no date) (unknown) (unknown) [place] [id number] (units unknown) (unknown) (unknown) (no date) (unknown) (unknown) Approved by: Vale Aden M.D. on 06/07/2022 at 14:37? (units unknown) (unknown) (unknown) (no date) (unknown) (unknown) Approved by: Fercho Khan M.D. on 06/04/2022 at 21:57 ? (units unknown) (unknown) (unknown) (no date) (unknown) (unknown) Attending Dr: Dhiraj Daigle MD (units unknown) (unknown) (unknown) (no date) (unknown) (unknown) [facility] ngoing Downgoing (units unknown) (unknown) (unknown) (no date) (unknown) (unknown) Bone Marrow:? Wedge-shaped compression fracture T12 without marrow edema or (units unknown) (unknown) (unknown) (no date) (unknown) (unknown) Bones:? 5 mug-pph-vqcygjs vertebrae are present.? Pedicle screw fixation at L3 (units unknown) (unknown) (unknown) (no date) (unknown) (unknown) Bowel and blad kael: No loss of control (units unknown) (unknown) (unknown) (no date) (unknown) (unknown) COMPARISON:? [facility], MR, MR LUMBAR SPINE WO CON, 03/09/2022, 20:09. (units unknown) (unknown) (unknown) (no date) (unknown) (unknown) COMPARISON:? S Located within [facility], CR, XR LUMBAR SPINE 2 OR 3 VIEWS, (units unknown) (unknown) (unknown) (no date) (unknown) (unknown) Cardiovascular : No edema or cyanosis. 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 (units unknown) (unknown) (unknown) (no date) (unknown) (unknown) Details: (units unknown) (unknown) (unknown) (no date) (unknown) (unknown) Dictated by: Fercho Khan M.D. on 06/04/2022 at 21:55 ? ? (units unknown) (unknown) (unknown) (no date) (unknown) (unknown) Documented By: Dhiraj Daigle MD 06/13/22 1523 (units unknown) (unknown) (unknown) (no date) (unknown) (unknown) Draft (units unknown) (unknown) (unknown) (no date) (unknown) (unknown) Exam Narrative (unit s unknown) (unknown) (unknown) (no date) (unknown) (unknown) Exam Narrative: (uni ts unknown) (unknown) (unknown) (no date) (unknown) (unknown) Exam (units unknown) (unknown) (unknown) (no date) (unknown) (unknown) Mo DAVIDSON n's, Pelvic rocking on the R/L side / bilaterally] (units unknown) (unknown) (unknown) (no date) (unknown) (unknown) FINDINGS:? (units unknown) (unknown) (unknown) (no date) (unknown) (unknown) Gait/Station - [Non-antalgic gait. Heel (L5 strength) and toe (S1 strength) (units unknown) (unknown) (unknown) (no date) (unknown) (unknown) General: Well-nourished, well-developed, [sex] in no acute distress (units unknown) (unknown) (unknown) (no date) (unknown) (unknown) HPI (units unknown) (unknown) (unknown) (no date) (unknown) (unknown) He was recentl y referred to Neurology for electrodiagnostic studies in his lower (units unknown) (unknown) (unknown) (no date) (unknown) (unknown) IMPRESSION:? (units unknown) (unknown) (unknown) (no date) (unknown) (unknown) INDICATIONS:? New lower extremity weakness, pain exacerbation after twist (units unknown) (unknown) (unknown) (no date) (unknown) (unknown) INDICATIONS:? hx of multiple back surgeries with pain after fall (units unknown) (unknown) (unknown) (no date) (unknown) (unknown) Image quality: ? Excellent.? (units unknown) (unknown) (unknown) (no date) (unknown) (unknown) Injections: (units unknown) (unknown) (unknown) (no date) (unknown) (unknown) Intake (units unknown) (unknown) (unknown) (no date) (unknown) (unknown) Intervention: Date: Outcome: (units unknown) (unknown) (unknown) (no date) (unknown) (unknown) [facility], MR, MR LUMBAR SPINE WO CON, 03/09/2022, 20:09. (units unknown) (unknown) (unknown) (no date) (unknown) (unknown) Kishor is a 47-y ear-old male with a history of chronic low back pain status post 3 (units unknown) (unknown) (unknown) (no date) (unknown) (unknown) L1-L2:? Disc s pace is preserved.? No central or foraminal stenosis (units unknown) (unknown) (unknown) (no date) (unknown) (unknown) L2 Hip Flexion 5/5 5/5? (units unknown) (unknown) (unknown) (no date) (unknown) (unknown) L2-L3:? Disc s pace narrowing and circumferential disc bulge results in moderate (units unknown) (unknown) (unknown) (no date) (unknown) (unknown) L3 Knee Extens ion 5/5 5/5 (units unknown) (unknown) (unknown) (no date) (unknown) (unknown) L3, L4 and L5 decompressive laminectomies with interbody fusion and posterior (units unknown) (unknown) (unknown) (no date) (unknown) (unknown) L3-L4:? Discec madonna and fusion with posterior decompression.? No central (units unknown) (unknown) (unknown) (no date) (unknown) (unknown) L4 Ankle Dorsi flexion 5/5 5/5 (units unknown) (unknown) (unknown) (no date) (unknown) (unknown) L4 Patella 2+ 2 (uni ts unknown) (unknown) (unknown) (no date) (unknown) (unknown) L4-L5:? Discec madonna and fusion with posterior decompression.? No central (units unknown) (unknown) (unknown) (no date) (unknown) (unknown) L5 Long Toe Ex tension 5/5 5/5 (units unknown) (unknown) (unknown) (no date) (unknown) (unknown) L5-S1:? Discec madonna and fusion with posterior decompression.? No central (units unknown) (unknown) (unknown) (no date) (unknown) (unknown) Loc: PAIN (units unknown) (unknown) (unknown) (no date) (unknown) (unknown) Lower lumbar s pine interbody fusion, posterior decompression and (units unknown) (unknown) (unknown) (no date) (unknown) (unknown) Lumbar spine f ixation appears stable. (units unknown) (unknown) (unknown) (no date) (unknown) (unknown) Lyrica 200 mg b.i.d. (units unknown) (unknown) (unknown) (no date) (unknown) (unknown) MSK: System re viewed and no additional complaints, except as documented. (units unknown) (unknown) (unknown) (no date) (unknown) (unknown) Medications: (units unknown) (unknown) (unknown) (no date) (unknown) (unknown) Moderate left and right foraminal stenosis (units unknown) (unknown) (unknown) (no date) (unknown) (unknown) Motor (units unknown) (unknown) (unknown) (no date) (unknown) (unknown) Musculoskeletal: (un its unknown) (unknown) (unknown) (no date) (unknown) (unknown) Neuro: System reviewed and no additional complaints, except as documented. (units unknown) (unknown) (unknown) (no date) (unknown) (unknown) Neurologic: (units unknown) (unknown) (unknown) (no date) (unknown) (unknown) No Known Drug Allergies Allergy (Verified 09/10/21 16:42) (units unknown) (unknown) (unknown) (no date) (unknown) (unknown) No suspicious bony lesions.? (units unknown) (unknown) (unknown) (no date) (unknown) (unknown) Noncontrast sa gittal T1 spin echo and T2 fast echo, sagittal STIR, and T2 fast (units unknown) (unknown) (unknown) (no date) (unknown) (unknown) Numbness/Tingling: ( units unknown) (unknown) (unknown) (no date) (unknown) (unknown) Objective Data (unit s unknown) (unknown) (unknown) (no date) (unknown) (unknown) Objective Data: (uni ts unknown) (unknown) (unknown) (no date) (unknown) (unknown) Onset/Context of parish n: (units unknown) (unknown) (unknown) (no date) (unknown) (unknown) Onset: (units unknown) (unknown) (unknown) (no date) (unknown) (unknown) 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 MR LUMBAR SPINE WO CON (units unknown) (unknown) (unknown) (no date) (unknown) (unknown) PROCEDURE:? XR LUMBAR SPINE 2-3V (units unknown) (unknown) (unknown) (no date) (unknown) (unknown) PT: Last PT wa s on []. [He/she] has attended for [sessions] (units unknown) (unknown) (unknown) (no date) (unknown) (unknown) Pain Visit (units unknown) (unknown) (unknown) (no date) (unknown) (unknown) Pain location/Radiation: (units unknown) (unknown) (unknown) (no date) (unknown) (unknown) Pain rating: / 10 today, /10 at worst (units unknown) (unknown) (unknown) (no date) (unknown) (unknown) Paraspinous So ft Tissues:? No paravertebral masses.? (units unknown) (unknown) (unknown) (no date) (unknown) (unknown) Patient: Neida Kishor Eduardo MR#: [id number] (units unknown) (unknown) (unknown) (no date) (unknown) (unknown) Pertinent medi cations include: (units unknown) (unknown) (unknown) (no date) (unknown) (unknown) Previous pain treatments included: (units unknown) (unknown) (unknown) (no date) (unknown) (unknown) Psych: Appropr iate affect, answers questions appropriately (units unknown) (unknown) (unknown) (no date) (unknown) (unknown) Quality and ti gerri of pain: (units unknown) (unknown) (unknown) (no date) (unknown) (unknown) ROS Narrative (units unknown) (unknown) (unknown) (no date) (unknown) (unknown) ROS Narrative: (unit s unknown) (unknown) (unknown) (no date) (unknown) (unknown) ROS (units unknown) (unknown) (unknown) (no date) (unknown) (unknown) Reason For Visit (un its unknown) (unknown) (unknown) (no date) (unknown) (unknown) Red flag symptoms: ( units unknown) (unknown) (unknown) (no date) (unknown) (unknown) Reflex Right Left (u nits unknown) (unknown) (unknown) (no date) (unknown) (unknown) Reflexes: (units unknown) (unknown) (unknown) (no date) (unknown) (unknown) Relieving fact ors include: (units unknown) (unknown) (unknown) (no date) (unknown) (unknown) Respiratory: Non-labored breathing pattern on RA. No respiratory distress (units unknown) (unknown) (unknown) (no date) (unknown) (unknown) S1 Achilles 2+ 2 (un its unknown) (unknown) (unknown) (no date) (unknown) (unknown) S1 Ankle Plantarflexion 5/5 5/5 (units unknown) (unknown) (unknown) (no date) (unknown) (unknown) S1 appears (units unknown) (unknown) (unknown) (no date) (unknown) (unknown) Saddle anesthe marina: denies (units unknown) (unknown) (unknown) (no date) (unknown) (unknown) Segment Action Right Left (units unknown) (unknown) (unknown) (no date) (unknown) (unknown) Segment Reflex Right Left (units unknown) (unknown) (unknown) (no date) (unknown) (unknown) Sensory -? Int act to light touch of bilateral lower extremities. Allodynia (units unknown) (unknown) (unknown) (no date) (unknown) (unknown) Signed By: (units unknown) (unknown) (unknown) (no date) (unknown) (unknown) Skin: No appre ciable rashes or skin breakdown (units unknown) (unknown) (unknown) (no date) (unknown) (unknown) Smoking Status : Never smoker (units unknown) (unknown) (unknown) (no date) (unknown) (unknown) Soft tissues:? Overlying bowel gas pattern is normal.? No suspicious soft tissue (units unknown) (unknown) (unknown) (no date) (unknown) (unknown) Spinal Cord:? Conus medullaris terminates at the L1 level.? Visualized cord (units unknown) (unknown) (unknown) (no date) (unknown) (unknown) Standing: (units unknown) (unknown) (unknown) (no date) (unknown) (unknown) Surgery: Patie nt is s/p (units unknown) (unknown) (unknown) (no date) (unknown) (unknown) T12 compressio n fracture is unchanged. (units unknown) (unknown) (unknown) (no date) (unknown) (unknown) T12-L1:? Disc space is preserved.? No central or foraminal stenosis. (units unknown) (unknown) (unknown) (no date) (unknown) (unknown) TECHNIQUE:? 2 views of the lumbar spine were acquired.? (units unknown) (unknown) (unknown) (no date) (unknown) (unknown) TECHNIQUE:? (units unknown) (unknown) (unknown) (no date) (unknown) (unknown) [facility] (units unknown) (unknown) (unknown) (no date) (unknown) (unknown) This note may have been all or partially generated using voice recognition (units unknown) (unknown) (unknown) (no date) (unknown) (unknown) Tobacco + Subs tance Use (units unknown) (unknown) (unknown) (no date) (unknown) (unknown) Tobacco Status (unit s unknown) (unknown) (unknown) (no date) (unknown) (unknown) Today I have r eviewed available medical information in the patient's medical (units unknown) (unknown) (unknown) (no date) (unknown) (unknown) Upper Motor Ne uron Signs: (units unknown) (unknown) (unknown) (no date) (unknown) (unknown) 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 (units unknown) (unknown) (unknown) (no date) (unknown) (unknown) Weakness: denies (un its unknown) (unknown) (unknown) (no date) (unknown) (unknown) bilateral fora solo stenosis (units unknown) (unknown) (unknown) (no date) (unknown) (unknown) calcifications.? (un its unknown) (unknown) (unknown) (no date) (unknown) (unknown) central stenosis. (u nits unknown) (unknown) (unknown) (no date) (unknown) (unknown) central stenos is.? Hypertrophic facet joints contribute to moderate bilateral (units unknown) (unknown) (unknown) (no date) (unknown) (unknown) change from (units unknown) (unknown) (unknown) (no date) (unknown) (unknown) compression fr acture who presents for further evaluation of [CC]. (units unknown) (unknown) (unknown) (no date) (unknown) (unknown) demonstrates (units unknown) (unknown) (unknown) (no date) (unknown) (unknown) extremities. H e was also referred to a spine surgeon. (units unknown) (unknown) (unknown) (no date) (unknown) (unknown) foraminal (units unknown) (unknown) (unknown) (no date) (unknown) (unknown) from prior exam (uni ts unknown) (unknown) (unknown) (no date) (unknown) (unknown) have occurred. If there are any questions, please contact the Medical Records (units unknown) (unknown) (unknown) (no date) (unknown) (unknown) instrumentatio n, stable (units unknown) (unknown) (unknown) (no date) (unknown) (unknown) intravenous dr ug use, sustained glucocorticoid use, osteoporosis, or a focal (units unknown) (unknown) (unknown) (no date) (unknown) (unknown) lumbar spine operations including posterior instrumented fusion at L3-S1, T12 (units unknown) (unknown) (unknown) (no date) (unknown) (unknown) may be performed.? ( units unknown) (unknown) (unknown) (no date) (unknown) (unknown) may occur. Occ asional wrong-word or 'sound-alike' substitutions may have (units unknown) (unknown) (unknown) (no date) (unknown) (unknown) negative, Hype ralgesia - negative (units unknown) (unknown) (unknown) (no date) (unknown) (unknown) neurological d eficit with progressive or disabling symptoms. (units unknown) (unknown) (unknown) (no date) (unknown) (unknown) normal signal and size.? (units unknown) (unknown) (unknown) (no date) (unknown) (unknown) occurred due t o the inherent limitations of voice recognition software. Please (units unknown) (unknown) (unknown) (no date) (unknown) (unknown) of Spinal Cord Injur y) (units unknown) (unknown) (unknown) (no date) (unknown) (unknown) or immunosuppr essive therapy, previous or current cancer diagnosis, history of (units unknown) (unknown) (unknown) (no date) (unknown) (unknown) read the note carefully and recognize, using context, where these substitutions (units unknown) (unknown) (unknown) (no date) (unknown) (unknown) record, includ ing relevant provider notes, laboratory work, and imaging. (units unknown) (unknown) (unknown) (no date) (unknown) (unknown) jules and (units unknown) (unknown) (unknown) (no date) (unknown) (unknown) screw instrume ntation also remains unchanged. (units unknown) (unknown) (unknown) (no date) (unknown) (unknown) severe (units unknown) (unknown) (unknown) (no date) (unknown) (unknown) software. Alth ough every effort is made to edit content, manager inside errors (units unknown) (unknown) (unknown) (no date) (unknown) (unknown) spin echo (units unknown) (unknown) (unknown) (no date) (unknown) (unknown) stability intact.] ( units unknown) (unknown) (unknown) (no date) (unknown) (unknown) stable.? 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 T12 compression fracture, (units unknown) (unknown) (unknown) (no date) (unknown) (unknown) stenosis (units unknown) (unknown) (unknown) (no date) (unknown) (unknown) stenosis.? Mild (uni ts unknown) (unknown) (unknown) (no date) (unknown) (unknown) stenosis.? (units unknown) (unknown) (unknown) (no date) (unknown) (unknown) the prior exam .? No retropulsed fracture fragment. (units unknown) (unknown) (unknown) (no date) (unknown) (unknown) through the tank mbar spine.? In cases with scoliosis, additional coronal T2 fast (units unknown) (unknown) (unknown) (no date) (unknown) (unknown) to severe (units unknown) (unknown) (unknown) (no date) (unknown) (unknown) unchanged.? (units unknown) (unknown) (unknown) (no date) (unknown) (unknown) walking intact . Tandem gait normal without evidence of ataxia. Lower quarter (units unknown) (unknown) Result panel 17 (unknown) (no date) (unknown) (unknown) (no value) (units unknown) (unknown) (unknown) (no date) (unknown) (unknown) (0=absent, 1=s light response, 2=brisk/normal, 3=very brisk, 4=clonus) (units unknown) (unknown) (unknown) (no date) (unknown) (unknown) (segments are from the International Standards for Neurological Classification (units unknown) (unknown) (unknown) (no date) (unknown) (unknown) - FADIR: [(-/+ ) on the R side / L side / bilaterally] (units unknown) (unknown) (unknown) (no date) (unknown) (unknown) - Hip ROM is: [WNL / limited and painful on the R sided / L side / bilaterally] (units unknown) (unknown) (unknown) (no date) (unknown) (unknown) - Lumbar facet loading: [(-/+) on the R side / L side / bilaterally] (units unknown) (unknown) (unknown) (no date) (unknown) (unknown) - SIJ provocat ion testing: [ (+/-) Iris's finger test, posterior thrust, (units unknown) (unknown) (unknown) (no date) (unknown) (unknown) - Straight Leg Raise: [(-/+) on the L side / R side / bilaterally] (units unknown) (unknown) (unknown) (no date) (unknown) (unknown) -to-moderate b ilateral foraminal stenosis (units unknown) (unknown) (unknown) (no date) (unknown) (unknown) 06/05/22 (units unknown) (unknown) (unknown) (no date) (unknown) (unknown) 05/22/2021, 2:31.? (u nits unknown) (unknown) (unknown) (no date) (unknown) (unknown) 990 (units unknown) (unknown) (unknown) (no date) (unknown) (unknown) ? Inspection - ? No gross appendicular or axial deformities (units unknown) (unknown) (unknown) (no date) (unknown) (unknown) ? Palpation -? [Tender to palpation of / No tenderness to palpation] (units unknown) (unknown) (unknown) (no date) (unknown) (unknown) ? ROM - [Lumba r flexion/ extension/ lateral rotation is limited due to pain / (units unknown) (unknown) (unknown) (no date) (unknown) (unknown) ? Special tests (uni ts unknown) (unknown) (unknown) (no date) (unknown) (unknown) ? (units unknown) (unknown) (unknown) (no date) (unknown) (unknown) ? Acetaminophen (units unknown) (unknown) (unknown) (no date) (unknown) (unknown) ? Antidepressants (units unknown) (unknown) (unknown) (no date) (unknown) (unknown) ? Antiepileptics (units unknown) (unknown) (unknown) (no date) (unknown) (unknown) ? Mu scle Relaxants (units unknown) (unknown) (unknown) (no date) (unknown) (unknown) ? NSAIDs ( units unknown) (unknown) (unknown) (no date) (unknown) (unknown) ? Opioids (units unknown) (unknown) (unknown) (no date) (unknown) (unknown) ? Steroids (units unknown) (unknown) (unknown) (no date) (unknown) (unknown) ? Topicals (units unknown) (unknown) (unknown) (no date) (unknown) (unknown) Age/Sex: 47 / M Date of Service: (units unknown) (unknown) (unknown) (no date) (unknown) (unknown) Aggravating fa ctors include: (units unknown) (unknown) (unknown) (no date) (unknown) (unknown) Alignment and Curvature:? There is normal bony alignment.? (units unknown) (unknown) (unknown) (no date) (unknown) (unknown) All other syst ems reviewed and are unremarkable except as noted in HPI. (units unknown) (unknown) (unknown) (no date) (unknown) (unknown) Allergies (units unknown) (unknown) (unknown) (no date) (unknown) (unknown) [place] [address] (units unknown) (unknown) (unknown) (no date) (unknown) (unknown) Approved by: Vale Aden M.D. on 06/07/2022 at 14:37? (units unknown) (unknown) (unknown) (no date) (unknown) (unknown) Approved by: Fercho Khan M.D. on 06/04/2022 at 21:57 ? (units unknown) (unknown) (unknown) (no date) (unknown) (unknown) Attending Dr: Dhiraj Daigle MD (units unknown) (unknown) (unknown) (no date) (unknown) (unknown) B/L S1 TFESI ( Dr. Blair) 06/15/2021 (units unknown) (unknown) (unknown) (no date) (unknown) (unknown) [employer] ngoing Downgoing (units unknown) (unknown) (unknown) (no date) (unknown) (unknown) Bone Marrow:? Wedge-shaped compression fracture T12 without marrow edema or (units unknown) (unknown) (unknown) (no date) (unknown) (unknown) Bones:? 5 tmu-avm-vdnybsd vertebrae are present.? Pedicle screw fixation at L3 (units unknown) (unknown) (unknown) (no date) (unknown) (unknown) Bowel and blad kael: No loss of control (units unknown) (unknown) (unknown) (no date) (unknown) (unknown) COMPARISON:? [facility], MR, MR LUMBAR SPINE WO CON, 03/09/2022, 20:09. (units unknown) (unknown) (unknown) (no date) (unknown) (unknown) COMPARISON:? S Located within [facility], CR, XR LUMBAR SPINE 2 OR 3 VIEWS, (units unknown) (unknown) (unknown) (no date) (unknown) (unknown) Cardiovascular : No edema or cyanosis. 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 (units unknown) (unknown) (unknown) (no date) (unknown) (unknown) Details: (units unknown) (unknown) (unknown) (no date) (unknown) (unknown) Dictated by: Fercho Khan M.D. on 06/04/2022 at 21:55 ? ? (units unknown) (unknown) (unknown) (no date) (unknown) (unknown) Documented By: Dhiraj Daigle MD 04/18/23 1523 (units unknown) (unknown) (unknown) (no date) (unknown) (unknown) Draft (units unknown) (unknown) (unknown) (no date) (unknown) (unknown) Exam Narrative (unit s unknown) (unknown) (unknown) (no date) (unknown) (unknown) Exam Narrative: (uni ts unknown) (unknown) (unknown) (no date) (unknown) (unknown) Exam (units unknown) (unknown) (unknown) (no date) (unknown) (unknown) LETYMo n's, Pelvic rocking on the R/L side / bilaterally] (units unknown) (unknown) (unknown) (no date) (unknown) (unknown) FINDINGS:? (units unknown) (unknown) (unknown) (no date) (unknown) (unknown) Gait/Station - [Non-antalgic gait. Heel (L5 strength) and toe (S1 strength) (units unknown) (unknown) (unknown) (no date) (unknown) (unknown) General: Well-nourished, well-developed, [sex] in no acute distress (units unknown) (unknown) (unknown) (no date) (unknown) (unknown) HPI (units unknown) (unknown) (unknown) (no date) (unknown) (unknown) He has been fo llowed by Dr. Blair at [facility]. He had bilateral S1 (units unknown) (unknown) (unknown) (no date) (unknown) (unknown) IMPRESSION:? (units unknown) (unknown) (unknown) (no date) (unknown) (unknown) INDICATIONS:? New lower extremity weakness, pain exacerbation after twist (units unknown) (unknown) (unknown) (no date) (unknown) (unknown) INDICATIONS:? hx of multiple back surgeries with pain after fall (units unknown) (unknown) (unknown) (no date) (unknown) (unknown) Image quality: ? Excellent.? (units unknown) (unknown) (unknown) (no date) (unknown) (unknown) Injections: (units unknown) (unknown) (unknown) (no date) (unknown) (unknown) Intake (units unknown) (unknown) (unknown) (no date) (unknown) (unknown) Intervention: Date: Outcome: (units unknown) (unknown) (unknown) (no date) (unknown) (unknown) Alyce loving, MR, MR LUMBAR SPINE WO CON, 03/09/2022, 20:09. (units unknown) (unknown) (unknown) (no date) (unknown) (unknown) Kishor is a 47-y ear-old male with a history of chronic low back pain status post 3 (units unknown) (unknown) (unknown) (no date) (unknown) (unknown) L1-L2:? Disc s pace is preserved.? No central or foraminal stenosis (units unknown) (unknown) (unknown) (no date) (unknown) (unknown) L2 Hip Flexion 5/5 5/5? (units unknown) (unknown) (unknown) (no date) (unknown) (unknown) L2-L3:? Disc s pace narrowing and circumferential disc bulge results in moderate (units unknown) (unknown) (unknown) (no date) (unknown) (unknown) L3 Knee Extens ion 5/5 5/5 (units unknown) (unknown) (unknown) (no date) (unknown) (unknown) L3, L4 and L5 decompressive laminectomies with interbody fusion and posterior (units unknown) (unknown) (unknown) (no date) (unknown) (unknown) L3-L4:? Discec madonna and fusion with posterior decompression.? No central (units unknown) (unknown) (unknown) (no date) (unknown) (unknown) L4 Ankle Dorsi flexion 5/5 5/5 (units unknown) (unknown) (unknown) (no date) (unknown) (unknown) L4 Patella 2+ 2 (uni ts unknown) (unknown) (unknown) (no date) (unknown) (unknown) L4-L5:? Discec madonna and fusion with posterior decompression.? No central (units unknown) (unknown) (unknown) (no date) (unknown) (unknown) L5 Long Toe Ex tension 5/5 5/5 (units unknown) (unknown) (unknown) (no date) (unknown) (unknown) L5-S1:? Discec madonna and fusion with posterior decompression.? No central (units unknown) (unknown) (unknown) (no date) (unknown) (unknown) Loc: PAIN (units unknown) (unknown) (unknown) (no date) (unknown) (unknown) Lower lumbar s pine interbody fusion, posterior decompression and (units unknown) (unknown) (unknown) (no date) (unknown) (unknown) Lumbar spine f ixation appears stable. (units unknown) (unknown) (unknown) (no date) (unknown) (unknown) Lyrica 200 mg b.i.d. (units unknown) (unknown) (unknown) (no date) (unknown) (unknown) MSK: System re viewed and no additional complaints, except as documented. (units unknown) (unknown) (unknown) (no date) (unknown) (unknown) Medications: (units unknown) (unknown) (unknown) (no date) (unknown) (unknown) Moderate left and right foraminal stenosis (units unknown) (unknown) (unknown) (no date) (unknown) (unknown) Motor (units unknown) (unknown) (unknown) (no date) (unknown) (unknown) Musculoskeletal: (un its unknown) (unknown) (unknown) (no date) (unknown) (unknown) Neuro: System reviewed and no additional complaints, except as documented. (units unknown) (unknown) (unknown) (no date) (unknown) (unknown) Neurologic: (units unknown) (unknown) (unknown) (no date) (unknown) (unknown) No Known Drug Allergies Allergy (Verified 09/10/21 16:42) (units unknown) (unknown) (unknown) (no date) (unknown) (unknown) No suspicious bony lesions.? (units unknown) (unknown) (unknown) (no date) (unknown) (unknown) Noncontrast sa gittal T1 spin echo and T2 fast echo, sagittal STIR, and T2 fast (units unknown) (unknown) (unknown) (no date) (unknown) (unknown) Numbness/Tingling: ( units unknown) (unknown) (unknown) (no date) (unknown) (unknown) Objective Data (unit s unknown) (unknown) (unknown) (no date) (unknown) (unknown) Objective Data: (uni ts unknown) (unknown) (unknown) (no date) (unknown) (unknown) Onset/Context of parish n: (units unknown) (unknown) (unknown) (no date) (unknown) (unknown) Onset: (units unknown) (unknown) (unknown) (no date) (unknown) (unknown) 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 MR LUMBAR SPINE WO CON (units unknown) (unknown) (unknown) (no date) (unknown) (unknown) PROCEDURE:? XR LUMBAR SPINE 2-3V (units unknown) (unknown) (unknown) (no date) (unknown) (unknown) PT: Last PT wa s on []. [He/she] has attended for [sessions] (units unknown) (unknown) (unknown) (no date) (unknown) (unknown) Pain Visit (units unknown) (unknown) (unknown) (no date) (unknown) (unknown) Pain location/Radiation: (units unknown) (unknown) (unknown) (no date) (unknown) (unknown) Pain rating: / 10 today, /10 at worst (units unknown) (unknown) (unknown) (no date) (unknown) (unknown) Paraspinous So ft Tissues:? No paravertebral masses.? (units unknown) (unknown) (unknown) (no date) (unknown) (unknown) Patient: Kishor Carrasquillo MR#: [id number] (units unknown) (unknown) (unknown) (no date) (unknown) (unknown) Pertinent medi cations include: (units unknown) (unknown) (unknown) (no date) (unknown) (unknown) Previous pain treatments included: (units unknown) (unknown) (unknown) (no date) (unknown) (unknown) Psych: Appropr iate affect, answers questions appropriately (units unknown) (unknown) (unknown) (no date) (unknown) (unknown) Quality and ti gerri of pain: (units unknown) (unknown) (unknown) (no date) (unknown) (unknown) ROS Narrative (units unknown) (unknown) (unknown) (no date) (unknown) (unknown) ROS Narrative: (unit s unknown) (unknown) (unknown) (no date) (unknown) (unknown) ROS (units unknown) (unknown) (unknown) (no date) (unknown) (unknown) Reason For Visit (un its unknown) (unknown) (unknown) (no date) (unknown) (unknown) Red flag symptoms: ( units unknown) (unknown) (unknown) (no date) (unknown) (unknown) Reflex Right Left (u nits unknown) (unknown) (unknown) (no date) (unknown) (unknown) Reflexes: (units unknown) (unknown) (unknown) (no date) (unknown) (unknown) Relieving fact ors include: (units unknown) (unknown) (unknown) (no date) (unknown) (unknown) Respiratory: Non-labored breathing pattern on RA. No respiratory distress (units unknown) (unknown) (unknown) (no date) (unknown) (unknown) S1 Achilles 2+ 2 (un its unknown) (unknown) (unknown) (no date) (unknown) (unknown) S1 Ankle Plantarflexion 5/5 5/5 (units unknown) (unknown) (unknown) (no date) (unknown) (unknown) S1 appears (units unknown) (unknown) (unknown) (no date) (unknown) (unknown) Saddle anesthe marina: denies (units unknown) (unknown) (unknown) (no date) (unknown) (unknown) Segment Action Right Left (units unknown) (unknown) (unknown) (no date) (unknown) (unknown) Segment Reflex Right Left (units unknown) (unknown) (unknown) (no date) (unknown) (unknown) Sensory -? Int act to light touch of bilateral lower extremities. Allodynia (units unknown) (unknown) (unknown) (no date) (unknown) (unknown) Signed By: (units unknown) (unknown) (unknown) (no date) (unknown) (unknown) Skin: No appre ciable rashes or skin breakdown (units unknown) (unknown) (unknown) (no date) (unknown) (unknown) Smoking Status : Never smoker (units unknown) (unknown) (unknown) (no date) (unknown) (unknown) Soft tissues:? Overlying bowel gas pattern is normal.? No suspicious soft tissue (units unknown) (unknown) (unknown) (no date) (unknown) (unknown) Spinal Cord:? Conus medullaris terminates at the L1 level.? Visualized cord (units unknown) (unknown) (unknown) (no date) (unknown) (unknown) Standing: (units unknown) (unknown) (unknown) (no date) (unknown) (unknown) Surgery: Patie nt is s/p L3-S1 posterior instrumented fusion (units unknown) (unknown) (unknown) (no date) (unknown) (unknown) T12 compressio n fracture is unchanged. (units unknown) (unknown) (unknown) (no date) (unknown) (unknown) T12-L1:? Disc space is preserved.? No central or foraminal stenosis. (units unknown) (unknown) (unknown) (no date) (unknown) (unknown) TECHNIQUE:? 2 views of the lumbar spine were acquired.? (units unknown) (unknown) (unknown) (no date) (unknown) (unknown) TECHNIQUE:? (units unknown) (unknown) (unknown) (no date) (unknown) (unknown) [facility] (units unknown) (unknown) (unknown) (no date) (unknown) (unknown) This note may have been all or partially generated using voice recognition (units unknown) (unknown) (unknown) (no date) (unknown) (unknown) Tobacco + Subs tance Use (units unknown) (unknown) (unknown) (no date) (unknown) (unknown) Tobacco Status (unit s unknown) (unknown) (unknown) (no date) (unknown) (unknown) Today I have r eviewed available medical information in the patient's medical (units unknown) (unknown) (unknown) (no date) (unknown) (unknown) Upper Motor Ne uron Signs: (units unknown) (unknown) (unknown) (no date) (unknown) (unknown) 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 (units unknown) (unknown) (unknown) (no date) (unknown) (unknown) Weakness: denies (un its unknown) (unknown) (unknown) (no date) (unknown) (unknown) bilateral fora solo stenosis (units unknown) (unknown) (unknown) (no date) (unknown) (unknown) calcifications.? (un its unknown) (unknown) (unknown) (no date) (unknown) (unknown) central stenosis. (u nits unknown) (unknown) (unknown) (no date) (unknown) (unknown) central stenos is.? Hypertrophic facet joints contribute to moderate bilateral (units unknown) (unknown) (unknown) (no date) (unknown) (unknown) change from (units unknown) (unknown) (unknown) (no date) (unknown) (unknown) claudication w ho presents for further evaluation of [CC]. (units unknown) (unknown) (unknown) (no date) (unknown) (unknown) compression fr acture, S1 radiculopathy, lumbar spinal stenosis with neurogenic (units unknown) (unknown) (unknown) (no date) (unknown) (unknown) demonstrates (units unknown) (unknown) (unknown) (no date) (unknown) (unknown) foraminal (units unknown) (unknown) (unknown) (no date) (unknown) (unknown) from prior exam (uni ts unknown) (unknown) (unknown) (no date) (unknown) (unknown) have occurred. If there are any questions, please contact the Medical Records (units unknown) (unknown) (unknown) (no date) (unknown) (unknown) in his lower extremities. He was also referred to a spine surgeon who stated (units unknown) (unknown) (unknown) (no date) (unknown) (unknown) instrumentatio n, stable (units unknown) (unknown) (unknown) (no date) (unknown) (unknown) intravenous dr ug use, sustained glucocorticoid use, osteoporosis, or a focal (units unknown) (unknown) (unknown) (no date) (unknown) (unknown) lumbar spine operations including posterior instrumented fusion at L3-S1, T12 (units unknown) (unknown) (unknown) (no date) (unknown) (unknown) may be performed.? ( units unknown) (unknown) (unknown) (no date) (unknown) (unknown) may occur. Occ asional wrong-word or 'sound-alike' substitutions may have (units unknown) (unknown) (unknown) (no date) (unknown) (unknown) negative, Hype ralgesia - negative (units unknown) (unknown) (unknown) (no date) (unknown) (unknown) neurological d eficit with progressive or disabling symptoms. (units unknown) (unknown) (unknown) (no date) (unknown) (unknown) normal signal and size.? (units unknown) (unknown) (unknown) (no date) (unknown) (unknown) occurred due t o the inherent limitations of voice recognition software. Please (units unknown) (unknown) (unknown) (no date) (unknown) (unknown) of Spinal Cord Injur y) (units unknown) (unknown) (unknown) (no date) (unknown) (unknown) or immunosuppr essive therapy, previous or current cancer diagnosis, history of (units unknown) (unknown) (unknown) (no date) (unknown) (unknown) read the note carefully and recognize, using context, where these substitutions (units unknown) (unknown) (unknown) (no date) (unknown) (unknown) record, includ ing relevant provider notes, laboratory work, and imaging. (units unknown) (unknown) (unknown) (no date) (unknown) (unknown) jules and (units unknown) (unknown) (unknown) (no date) (unknown) (unknown) screw instrume ntation also remains unchanged. (units unknown) (unknown) (unknown) (no date) (unknown) (unknown) severe (units unknown) (unknown) (unknown) (no date) (unknown) (unknown) software. Alth ough every effort is made to edit content, manager inside errors (units unknown) (unknown) (unknown) (no date) (unknown) (unknown) spin echo (units unknown) (unknown) (unknown) (no date) (unknown) (unknown) stability intact.] ( units unknown) (unknown) (unknown) (no date) (unknown) (unknown) stable.? 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 T12 compression fracture, (units unknown) (unknown) (unknown) (no date) (unknown) (unknown) stenosis (units unknown) (unknown) (unknown) (no date) (unknown) (unknown) stenosis.? Mild (uni ts unknown) (unknown) (unknown) (no date) (unknown) (unknown) stenosis.? (units unknown) (unknown) (unknown) (no date) (unknown) (unknown) that he may be a candidate for decompression fusion at L2-3 but recommended (units unknown) (unknown) (unknown) (no date) (unknown) (unknown) the prior exam .? No retropulsed fracture fragment. (units unknown) (unknown) (unknown) (no date) (unknown) (unknown) through the [facility] spine.? In cases with scoliosis, additional coronal T2 fast (units unknown) (unknown) (unknown) (no date) (unknown) (unknown) to severe (units unknown) (unknown) (unknown) (no date) (unknown) (unknown) transforaminal MARI. He was referred to Neurology for electrodiagnostic studies (units unknown) (unknown) (unknown) (no date) (unknown) (unknown) trial of lumba r epidural steroids at L2-3. (units unknown) (unknown) (unknown) (no date) (unknown) (unknown) unchanged.? (units unknown) (unknown) (unknown) (no date) (unknown) (unknown) walking intact . Tandem gait normal without evidence of ataxia. Lower quarter (units unknown) (unknown) Result panel 18 (unknown) (no date) (unknown) (unknown) (no value) (units unknown) (unknown) (unknown) (no date) (unknown) (unknown) (0=absent, 1=s light response, 2=brisk/normal, 3=very brisk, 4=clonus) (units unknown) (unknown) (unknown) (no date) (unknown) (unknown) (segments are from the International Standards for Neurological Classification (units unknown) (unknown) (unknown) (no date) (unknown) (unknown) - Activity: Co ntinue activity as tolerated. [] (units unknown) (unknown) (unknown) (no date) (unknown) (unknown) - Chiropractor , acupuncture[] (units unknown) (unknown) (unknown) (no date) (unknown) (unknown) - Continues cl inician directed home exercise program including exercises learned (units unknown) (unknown) (unknown) (no date) (unknown) (unknown) - Education: C auda equina and associated symptoms, including motor weakness, (units unknown) (unknown) (unknown) (no date) (unknown) (unknown) - FADIR: [(-/+ ) on the R side / L side / bilaterally] (units unknown) (unknown) (unknown) (no date) (unknown) (unknown) - Follow-up: [] (uni ts unknown) (unknown) (unknown) (no date) (unknown) (unknown) - Hip ROM is: [WNL / limited and painful on the R sided / L side / bilaterally] (units unknown) (unknown) (unknown) (no date) (unknown) (unknown) - I discussed risks, benefits and side effects. Additionally, patient was (units unknown) (unknown) (unknown) (no date) (unknown) (unknown) - Imaging: No new imaging indicated at this time. [] (units unknown) (unknown) (unknown) (no date) (unknown) (unknown) - Interventional/Surgica l procedures: None indicated at this time. [] (units unknown) (unknown) (unknown) (no date) (unknown) (unknown) - Lumbar facet loading: [(-/+) on the R side / L side / bilaterally] (units unknown) (unknown) (unknown) (no date) (unknown) (unknown) - Medications: No new prescription at this time. Patient will continue current (units unknown) (unknown) (unknown) (no date) (unknown) (unknown) - Medications: acetaminophen, NSAIDS, neuropathics, muscle relaxants [] (units unknown) (unknown) (unknown) (no date) (unknown) (unknown) - Physical The rapy: Completed 6 week course in the last 6 months OR Patient (units unknown) (unknown) (unknown) (no date) (unknown) (unknown) - Physical therapy/modalities/DME : Patient will likely benefit from physical (units unknown) (unknown) (unknown) (no date) (unknown) (unknown) - Prescription provided and uptitration instructions given if necessary. [] (units unknown) (unknown) (unknown) (no date) (unknown) (unknown) - Previous [] on [] provided []% relief of pain for the expected duration of the (units unknown) (unknown) (unknown) (no date) (unknown) (unknown) - Referrals: N one indicated at this time. [] (units unknown) (unknown) (unknown) (no date) (unknown) (unknown) - SIJ provocat ion testing: [ (+/-) Iris's finger test, posterior thrust, (units unknown) (unknown) (unknown) (no date) (unknown) (unknown) - Straight Leg Raise: [(-/+) on the L side / R side / bilaterally] (units unknown) (unknown) (unknown) (no date) (unknown) (unknown) -to-moderate b ilateral foraminal stenosis (units unknown) (unknown) (unknown) (no date) (unknown) (unknown) 06/05/22 (units unknown) (unknown) (unknown) (no date) (unknown) (unknown) 05/22/2021, 2:31.? (u nits unknown) (unknown) (unknown) (no date) (unknown) (unknown) 990 (units unknown) (unknown) (unknown) (no date) (unknown) (unknown) ? Inspection - ? No gross appendicular or axial deformities (units unknown) (unknown) (unknown) (no date) (unknown) (unknown) ? Palpation -? [Tender to palpation of / No tenderness to palpation] (units unknown) (unknown) (unknown) (no date) (unknown) (unknown) ? ROM - [Lumba r flexion/ extension/ lateral rotation is limited due to pain / (units unknown) (unknown) (unknown) (no date) (unknown) (unknown) ? Special tests (uni ts unknown) (unknown) (unknown) (no date) (unknown) (unknown) ? (units unknown) (unknown) (unknown) (no date) (unknown) (unknown) ? Acetaminophen (units unknown) (unknown) (unknown) (no date) (unknown) (unknown) ? Antidepressants (units unknown) (unknown) (unknown) (no date) (unknown) (unknown) ? Antiepileptics (units unknown) (unknown) (unknown) (no date) (unknown) (unknown) ? Mu scle Relaxants (units unknown) (unknown) (unknown) (no date) (unknown) (unknown) ? NSAIDs ( units unknown) (unknown) (unknown) (no date) (unknown) (unknown) ? Opioids (units unknown) (unknown) (unknown) (no date) (unknown) (unknown) ? Steroids (units unknown) (unknown) (unknown) (no date) (unknown) (unknown) ? Topicals (units unknown) (unknown) (unknown) (no date) (unknown) (unknown) Age/Sex: 47 / M Date of Service: (units unknown) (unknown) (unknown) (no date) (unknown) (unknown) Aggravating fa ctors include: (units unknown) (unknown) (unknown) (no date) (unknown) (unknown) Alignment and Curvature:? There is normal bony alignment.? (units unknown) (unknown) (unknown) (no date) (unknown) (unknown) All other syst ems reviewed and are unremarkable except as noted in HPI. (units unknown) (unknown) (unknown) (no date) (unknown) (unknown) Allergies (units unknown) (unknown) (unknown) (no date) (unknown) (unknown) [place] [id number] (units unknown) (unknown) (unknown) (no date) (unknown) (unknown) Approved by: Vale Aden M.D. on 06/07/2022 at 14:37? (units unknown) (unknown) (unknown) (no date) (unknown) (unknown) Approved by: Fercho Khan M.D. on 06/04/2022 at 21:57 ? (units unknown) (unknown) (unknown) (no date) (unknown) (unknown) Assessment + Plan (u nits unknown) (unknown) (unknown) (no date) (unknown) (unknown) Assessment: (units unknown) (unknown) (unknown) (no date) (unknown) (unknown) Attending Dr: Dhiraj Daigle MD (units unknown) (unknown) (unknown) (no date) (unknown) (unknown) B/L S1 TFESI ( Dr. Blair) 05/26/2021 (units unknown) (unknown) (unknown) (no date) (unknown) (unknown) [employer] ngoing Downgoing (units unknown) (unknown) (unknown) (no date) (unknown) (unknown) Bone Marrow:? Wedge-shaped compression fracture T12 without marrow edema or (units unknown) (unknown) (unknown) (no date) (unknown) (unknown) Bones:? 5 [id number] vertebrae are present.? Pedicle screw fixation at L3 (units unknown) (unknown) (unknown) (no date) (unknown) (unknown) Bowel and blad kael: No loss of control (units unknown) (unknown) (unknown) (no date) (unknown) (unknown) COMPARISON:? I [facility], MR, MR LUMBAR SPINE WO CON, 03/09/2022, 20:09. (units unknown) (unknown) (unknown) (no date) (unknown) (unknown) COMPARISON:? [facility], CR, XR LUMBAR SPINE 2 OR 3 VIEWS, (units unknown) (unknown) (unknown) (no date) (unknown) (unknown) Cardiovascular : No edema or cyanosis. 2+ peripheral pulses (units unknown) (unknown) (unknown) (no date) (unknown) (unknown) Chart review: (units unknown) (unknown) (unknown) (no date) (unknown) (unknown) Chief Complaint (uni ts unknown) (unknown) (unknown) (no date) (unknown) (unknown) Chief Complain t: Low back and leg pain (units unknown) (unknown) (unknown) (no date) (unknown) (unknown) Chronic T12 compression fracture without retropulsed fracture fragment (units unknown) (unknown) (unknown) (no date) (unknown) (unknown) Clonus None None (un its unknown) (unknown) (unknown) (no date) (unknown) (unknown) Conservative management includes: (units unknown) (unknown) (unknown) (no date) (unknown) (unknown) Continue [facility]. [] (units unknown) (unknown) (unknown) (no date) (unknown) (unknown) Continue home exercise program. 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 (units unknown) (unknown) (unknown) (no date) (unknown) (unknown) Details: (units unknown) (unknown) (unknown) (no date) (unknown) (unknown) Dictated by: Fercho Khan M.D. on 06/04/2022 at 21:55 ? ? (units unknown) (unknown) (unknown) (no date) (unknown) (unknown) Documented By: Dhiraj Daigle MD 06/13/22 1523 (units unknown) (unknown) (unknown) (no date) (unknown) (unknown) Draft (units unknown) (unknown) (unknown) (no date) (unknown) (unknown) Exam Narrative (unit s unknown) (unknown) (unknown) (no date) (unknown) (unknown) Exam Narrative: (uni ts unknown) (unknown) (unknown) (no date) (unknown) (unknown) Exam (units unknown) (unknown) (unknown) (no date) (unknown) (unknown) Mo DAVIDSON n's, Pelvic rocking on the R/L side / bilaterally] (units unknown) (unknown) (unknown) (no date) (unknown) (unknown) FINDINGS:? (units unknown) (unknown) (unknown) (no date) (unknown) (unknown) Gait/Station - [Non-antalgic gait. Heel (L5 strength) and toe (S1 strength) (units unknown) (unknown) (unknown) (no date) (unknown) (unknown) General: Well-nourished, well-developed, [sex] in no acute distress (units unknown) (unknown) (unknown) (no date) (unknown) (unknown) HPI (units unknown) (unknown) (unknown) (no date) (unknown) (unknown) He has been fo llowed by Dr. Blair at [facility]. He had bilateral S1 (units unknown) (unknown) (unknown) (no date) (unknown) (unknown) IMPRESSION:? (units unknown) (unknown) (unknown) (no date) (unknown) (unknown) INDICATIONS:? New lower extremity weakness, pain exacerbation after twist (units unknown) (unknown) (unknown) (no date) (unknown) (unknown) INDICATIONS:? hx of multiple back surgeries with pain after fall (units unknown) (unknown) (unknown) (no date) (unknown) (unknown) Image quality: ? Excellent.? (units unknown) (unknown) (unknown) (no date) (unknown) (unknown) Injections: (units unknown) (unknown) (unknown) (no date) (unknown) (unknown) Intake (units unknown) (unknown) (unknown) (no date) (unknown) (unknown) Intervention: Date: Outcome: (units unknown) (unknown) (unknown) (no date) (unknown) (unknown) Alyce Otero l, MR, MR LUMBAR SPINE WO CON, 03/09/2022, 20:09. (units unknown) (unknown) (unknown) (no date) (unknown) (unknown) JUSTIFICATION OF MEDICAL NECESSITY (units unknown) (unknown) (unknown) (no date) (unknown) (unknown) Kishor is a 47-y ear-old male with a history of chronic low back pain status post 3 (units unknown) (unknown) (unknown) (no date) (unknown) (unknown) L-spine/T-spin e/C-spin e MRI ordered to better delineate the anatomy and help (units unknown) (unknown) (unknown) (no date) (unknown) (unknown) L1-L2:? Disc s pace is preserved.? No central or foraminal stenosis (units unknown) (unknown) (unknown) (no date) (unknown) (unknown) L2 Hip Flexion 5/5 5/5? (units unknown) (unknown) (unknown) (no date) (unknown) (unknown) L2-L3:? Disc s pace narrowing and circumferential disc bulge results in moderate (units unknown) (unknown) (unknown) (no date) (unknown) (unknown) L3 Knee Extens ion 5/5 5/5 (units unknown) (unknown) (unknown) (no date) (unknown) (unknown) L3, L4 and L5 decompressive laminectomies with interbody fusion and posterior (units unknown) (unknown) (unknown) (no date) (unknown) (unknown) L3-L4:? Discec madonna and fusion with posterior decompression.? No central (units unknown) (unknown) (unknown) (no date) (unknown) (unknown) L4 Ankle Dorsi flexion 5/5 5/5 (units unknown) (unknown) (unknown) (no date) (unknown) (unknown) L4 Patella 2+ 2 (uni ts unknown) (unknown) (unknown) (no date) (unknown) (unknown) L4-L5:? Discec madonna and fusion with posterior decompression.? No central (units unknown) (unknown) (unknown) (no date) (unknown) (unknown) L5 Long Toe Ex tension 5/5 5/5 (units unknown) (unknown) (unknown) (no date) (unknown) (unknown) L5-S1:? Discec madonna and fusion with posterior decompression.? No central (units unknown) (unknown) (unknown) (no date) (unknown) (unknown) Loc: PAIN (units unknown) (unknown) (unknown) (no date) (unknown) (unknown) Lower lumbar s pine interbody fusion, posterior decompression and (units unknown) (unknown) (unknown) (no date) (unknown) (unknown) Lumbar spine f ixation appears stable. (units unknown) (unknown) (unknown) (no date) (unknown) (unknown) Lyrica 200 mg b.i.d. (units unknown) (unknown) (unknown) (no date) (unknown) (unknown) MSK: System re viewed and no additional complaints, except as documented. (units unknown) (unknown) (unknown) (no date) (unknown) (unknown) Medications: (units unknown) (unknown) (unknown) (no date) (unknown) (unknown) Moderate left and right foraminal stenosis (units unknown) (unknown) (unknown) (no date) (unknown) (unknown) Motor (units unknown) (unknown) (unknown) (no date) (unknown) (unknown) Musculoskeletal: (un its unknown) (unknown) (unknown) (no date) (unknown) (unknown) Neuro: System reviewed and no additional complaints, except as documented. (units unknown) (unknown) (unknown) (no date) (unknown) (unknown) Neurologic: (units unknown) (unknown) (unknown) (no date) (unknown) (unknown) No Known Drug Allergies Allergy (Verified 09/10/21 16:42) (units unknown) (unknown) (unknown) (no date) (unknown) (unknown) No suspicious bony lesions.? (units unknown) (unknown) (unknown) (no date) (unknown) (unknown) Noncontrast sa gittal T1 spin echo and T2 fast echo, sagittal STIR, and T2 fast (units unknown) (unknown) (unknown) (no date) (unknown) (unknown) Not indicated at this time. 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 MR LUMBAR SPINE WO CON (units unknown) (unknown) (unknown) (no date) (unknown) (unknown) PROCEDURE:? XR LUMBAR SPINE 2-3V (units unknown) (unknown) (unknown) (no date) (unknown) (unknown) PT: Last PT wa s on []. [He/she] has attended for [sessions] (units unknown) (unknown) (unknown) (no date) (unknown) (unknown) Pain Visit (units unknown) (unknown) (unknown) (no date) (unknown) (unknown) Pain location/Radiation: (units unknown) (unknown) (unknown) (no date) (unknown) (unknown) Pain rating: / 10 today, /10 at worst (units unknown) (unknown) (unknown) (no date) (unknown) (unknown) Paraspinous So ft Tissues:? No paravertebral masses.? (units unknown) (unknown) (unknown) (no date) (unknown) (unknown) Patient will r eturn for []. Risks and benefits were discussed. (units unknown) (unknown) (unknown) (no date) (unknown) (unknown) Patient's pain has been present for >6 weeks and is an average of >6/10 on 0-10 (units unknown) (unknown) (unknown) (no date) (unknown) (unknown) Patient: Kishor Carrasquillo MR#: [id number] (units unknown) (unknown) (unknown) (no date) (unknown) (unknown) Pertinent medi cations include: (units unknown) (unknown) (unknown) (no date) (unknown) (unknown) Plan (units unknown) (unknown) (unknown) (no date) (unknown) (unknown) Plan/Recommendations : (units unknown) (unknown) (unknown) (no date) (unknown) (unknown) Prescriptions Written: [] (units unknown) (unknown) (unknown) (no date) (unknown) (unknown) Previous pain treatments included: (units unknown) (unknown) (unknown) (no date) (unknown) (unknown) Psych: Appropr iate affect, answers questions appropriately (units unknown) (unknown) (unknown) (no date) (unknown) (unknown) Quality and ti gerri of pain: (units unknown) (unknown) (unknown) (no date) (unknown) (unknown) ROS Narrative (units unknown) (unknown) (unknown) (no date) (unknown) (unknown) ROS Narrative: (unit s unknown) (unknown) (unknown) (no date) (unknown) (unknown) ROS (units unknown) (unknown) (unknown) (no date) (unknown) (unknown) Reason For Visit (un its unknown) (unknown) (unknown) (no date) (unknown) (unknown) Red flag symptoms: ( units unknown) (unknown) (unknown) (no date) (unknown) (unknown) Reflex Right Left (u nits unknown) (unknown) (unknown) (no date) (unknown) (unknown) Reflexes: (units unknown) (unknown) (unknown) (no date) (unknown) (unknown) Relieving fact ors include: (units unknown) (unknown) (unknown) (no date) (unknown) (unknown) Respiratory: Non-labored breathing pattern on RA. No respiratory distress (units unknown) (unknown) (unknown) (no date) (unknown) (unknown) S1 Achilles 2+ 2 (un its unknown) (unknown) (unknown) (no date) (unknown) (unknown) S1 Ankle Plantarflexion 5/5 5/5 (units unknown) (unknown) (unknown) (no date) (unknown) (unknown) S1 appears (units unknown) (unknown) (unknown) (no date) (unknown) (unknown) Saddle anesthe marina: denies (units unknown) (unknown) (unknown) (no date) (unknown) (unknown) Segment Action Right Left (units unknown) (unknown) (unknown) (no date) (unknown) (unknown) Segment Reflex Right Left (units unknown) (unknown) (unknown) (no date) (unknown) (unknown) Sensory -? Int act to light touch of bilateral lower extremities. Allodynia (units unknown) (unknown) (unknown) (no date) (unknown) (unknown) Signed By: (units unknown) (unknown) (unknown) (no date) (unknown) (unknown) Skin: No appre ciable rashes or skin breakdown (units unknown) (unknown) (unknown) (no date) (unknown) (unknown) Smoking Status : Never smoker (units unknown) (unknown) (unknown) (no date) (unknown) (unknown) Soft tissues:? Overlying bowel gas pattern is normal.? No suspicious soft tissue (units unknown) (unknown) (unknown) (no date) (unknown) (unknown) Spinal Cord:? Conus medullaris terminates at the L1 level.? Visualized cord (units unknown) (unknown) (unknown) (no date) (unknown) (unknown) Standing: (units unknown) (unknown) (unknown) (no date) (unknown) (unknown) Surgery: Patie nt is s/p L3-S1 posterior instrumented fusion (units unknown) (unknown) (unknown) (no date) (unknown) (unknown) T12 compressio n fracture is unchanged. (units unknown) (unknown) (unknown) (no date) (unknown) (unknown) T12-L1:? Disc space is preserved.? No central or foraminal stenosis. (units unknown) (unknown) (unknown) (no date) (unknown) (unknown) TECHNIQUE:? 2 views of the lumbar spine were acquired.? (units unknown) (unknown) (unknown) (no date) (unknown) (unknown) TECHNIQUE:? (units unknown) (unknown) (unknown) (no date) (unknown) (unknown) [facility] (units unknown) (unknown) (unknown) (no date) (unknown) (unknown) This note may have been all or partially generated using voice recognition (units unknown) (unknown) (unknown) (no date) (unknown) (unknown) Tobacco + Subs tance Use (units unknown) (unknown) (unknown) (no date) (unknown) (unknown) Tobacco Status (unit s unknown) (unknown) (unknown) (no date) (unknown) (unknown) Today I have r eviewed available medical information in the patient's medical (units unknown) (unknown) (unknown) (no date) (unknown) (unknown) Upper Motor Ne uron Signs: (units unknown) (unknown) (unknown) (no date) (unknown) (unknown) 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 (units unknown) (unknown) (unknown) (no date) (unknown) (unknown) We reviewed et iology, predisposing factor(s), natural course, imaging results as (units unknown) (unknown) (unknown) (no date) (unknown) (unknown) Weakness: denies (un its unknown) (unknown) (unknown) (no date) (unknown) (unknown) benefits of va rious treatment options were discussed with the patient in great (units unknown) (unknown) (unknown) (no date) (unknown) (unknown) bilateral fora solo stenosis (units unknown) (unknown) (unknown) (no date) (unknown) (unknown) bowel/bladder dysfunction, and perineal numbness were discussed. The patient was (units unknown) (unknown) (unknown) (no date) (unknown) (unknown) calcifications.? (un its unknown) (unknown) (unknown) (no date) (unknown) (unknown) cannot tolerat e physical therapy at the current time due to the intensity of the (units unknown) (unknown) (unknown) (no date) (unknown) (unknown) central stenosis. (u nits unknown) (unknown) (unknown) (no date) (unknown) (unknown) central stenos is.? Hypertrophic facet joints contribute to moderate bilateral (units unknown) (unknown) (unknown) (no date) (unknown) (unknown) change from (units unknown) (unknown) (unknown) (no date) (unknown) (unknown) claudication w ho presents for further evaluation of [CC]. (units unknown) (unknown) (unknown) (no date) (unknown) (unknown) compression fr acture, S1 radiculopathy, lumbar spinal stenosis with neurogenic (units unknown) (unknown) (unknown) (no date) (unknown) (unknown) demonstrates (units unknown) (unknown) (unknown) (no date) (unknown) (unknown) detail. (units unknown) (unknown) (unknown) (no date) (unknown) (unknown) foraminal (units unknown) (unknown) (unknown) (no date) (unknown) (unknown) from prior exam (uni ts unknown) (unknown) (unknown) (no date) (unknown) (unknown) have occurred. If there are any questions, please contact the Medical Records (units unknown) (unknown) (unknown) (no date) (unknown) (unknown) improved sleep , improved mobility, etc. (units unknown) (unknown) (unknown) (no date) (unknown) (unknown) in PT. [] (units unknown) (unknown) (unknown) (no date) (unknown) (unknown) in his lower extremities. He was also referred to a spine surgeon who stated (units unknown) (unknown) (unknown) (no date) (unknown) (unknown) instructed to report to the Emergency department, if these symptoms occur. (units unknown) (unknown) (unknown) (no date) (unknown) (unknown) instructed to stop if any side effects. [] (units unknown) (unknown) (unknown) (no date) (unknown) (unknown) instrumentatio n, stable (units unknown) (unknown) (unknown) (no date) (unknown) (unknown) intravenous dr ug use, sustained glucocorticoid use, osteoporosis, or a focal (units unknown) (unknown) (unknown) (no date) (unknown) (unknown) local anesthet ic. During that time patient able to participate in ADLs, had (units unknown) (unknown) (unknown) (no date) (unknown) (unknown) lumbar spine operations including posterior instrumented fusion at L3-S1, T12 (units unknown) (unknown) (unknown) (no date) (unknown) (unknown) may be performed.? ( units unknown) (unknown) (unknown) (no date) (unknown) (unknown) may occur. Occ asional wrong-word or 'sound-alike' substitutions may have (units unknown) (unknown) (unknown) (no date) (unknown) (unknown) meds. [] (units unknown) (unknown) (unknown) (no date) (unknown) (unknown) negative, Hype ralgesia - negative (units unknown) (unknown) (unknown) (no date) (unknown) (unknown) neurological d eficit with progressive or disabling symptoms. (units unknown) (unknown) (unknown) (no date) (unknown) (unknown) normal signal and size.? (units unknown) (unknown) (unknown) (no date) (unknown) (unknown) occurred due t o the inherent limitations of voice recognition software. Please (units unknown) (unknown) (unknown) (no date) (unknown) (unknown) of Spinal Cord Injur y) (units unknown) (unknown) (unknown) (no date) (unknown) (unknown) or immunosuppr essive therapy, previous or current cancer diagnosis, history of (units unknown) (unknown) (unknown) (no date) (unknown) (unknown) pain. [] (units unknown) (unknown) (unknown) (no date) (unknown) (unknown) read the note carefully and recognize, using context, where these substitutions (units unknown) (unknown) (unknown) (no date) (unknown) (unknown) record, includ ing relevant provider notes, laboratory work, and imaging. (units unknown) (unknown) (unknown) (no date) (unknown) (unknown) jules and (units unknown) (unknown) (unknown) (no date) (unknown) (unknown) scale and/or p ain interferes with ADLs. 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 (units unknown) (unknown) (unknown) (no date) (unknown) (unknown) severe (units unknown) (unknown) (unknown) (no date) (unknown) (unknown) software. Alth ough every effort is made to edit content, manager inside errors (units unknown) (unknown) (unknown) (no date) (unknown) (unknown) spin echo (units unknown) (unknown) (unknown) (no date) (unknown) (unknown) stability intact.] ( units unknown) (unknown) (unknown) (no date) (unknown) (unknown) stable.? 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 T12 compression fracture, (units unknown) (unknown) (unknown) (no date) (unknown) (unknown) stenosis (units unknown) (unknown) (unknown) (no date) (unknown) (unknown) stenosis.? Mild (uni ts unknown) (unknown) (unknown) (no date) (unknown) (unknown) stenosis.? (units unknown) (unknown) (unknown) (no date) (unknown) (unknown) that he may be a candidate for decompression fusion at L2-3 but recommended (units unknown) (unknown) (unknown) (no date) (unknown) (unknown) the prior exam .? No retropulsed fracture fragment. (units unknown) (unknown) (unknown) (no date) (unknown) (unknown) therapeutic in jections and surgery. The risks, consequences, alternatives and (units unknown) (unknown) (unknown) (no date) (unknown) (unknown) therapy. ?A re ferral was provided for the patient. [] (units unknown) (unknown) (unknown) (no date) (unknown) (unknown) through the [facility] spine.? In cases with scoliosis, additional coronal T2 fast (units unknown) (unknown) (unknown) (no date) (unknown) (unknown) to severe (units unknown) (unknown) (unknown) (no date) (unknown) (unknown) transforaminal MARI as were recommended by Dr. Blair but not performed.... (units unknown) (unknown) (unknown) (no date) (unknown) (unknown) transforaminal MARI. He was referred to Neurology for electrodiagnostic studies (units unknown) (unknown) (unknown) (no date) (unknown) (unknown) trial of lumba r epidural steroid injection at L2-3. Bilateral L2-3 (units unknown) (unknown) (unknown) (no date) (unknown) (unknown) unchanged.? (units unknown) (unknown) (unknown) (no date) (unknown) (unknown) walking intact . Tandem gait normal without evidence of ataxia. Lower quarter (units unknown) (unknown) (unknown) (no date) (unknown) (unknown) well as treatm ent options including medications, physical therapy/exercise, (units unknown) (unknown) (unknown) (no date) (unknown) (unknown) with future tr eatment planning. [] (units unknown) (unknown) Result panel 19 (unknown) (no date) (unknown) (unknown) (no value) (units unknown) (unknown) (unknown) (no date) (unknown) (unknown) (0=absent, 1=s light response, 2=brisk/normal, 3=very brisk, 4=clonus) (units unknown) (unknown) (unknown) (no date) (unknown) (unknown) (segments are from the International Standards for Neurological Classification (units unknown) (unknown) (unknown) (no date) (unknown) (unknown) - Activity: Co ntinue activity as tolerated. [] (units unknown) (unknown) (unknown) (no date) (unknown) (unknown) - Chiropractor , acupuncture[] (units unknown) (unknown) (unknown) (no date) (unknown) (unknown) - Continues cl inician directed home exercise program including exercises learned (units unknown) (unknown) (unknown) (no date) (unknown) (unknown) - Education: C auda equina and associated symptoms, including motor weakness, (units unknown) (unknown) (unknown) (no date) (unknown) (unknown) - FADIR: [(-/+ ) on the R side / L side / bilaterally] (units unknown) (unknown) (unknown) (no date) (unknown) (unknown) - Follow-up: [] (uni ts unknown) (unknown) (unknown) (no date) (unknown) (unknown) - Hip ROM is: [WNL / limited and painful on the R sided / L side / bilaterally] (units unknown) (unknown) (unknown) (no date) (unknown) (unknown) - I discussed risks, benefits and side effects. Additionally, patient was (units unknown) (unknown) (unknown) (no date) (unknown) (unknown) - Imaging: No new imaging indicated at this time. [] (units unknown) (unknown) (unknown) (no date) (unknown) (unknown) - Interventional/Surgica l procedures: None indicated at this time. [] (units unknown) (unknown) (unknown) (no date) (unknown) (unknown) - Lumbar facet loading: [(-/+) on the R side / L side / bilaterally] (units unknown) (unknown) (unknown) (no date) (unknown) (unknown) - Medications: No new prescription at this time. Patient will continue current (units unknown) (unknown) (unknown) (no date) (unknown) (unknown) - Medications: acetaminophen, NSAIDS, neuropathics, muscle relaxants [] (units unknown) (unknown) (unknown) (no date) (unknown) (unknown) - Physical The rapy: Completed 6 week course in the last 6 months OR Patient (units unknown) (unknown) (unknown) (no date) (unknown) (unknown) - Physical therapy/modalities/DME : Patient will likely benefit from physical (units unknown) (unknown) (unknown) (no date) (unknown) (unknown) - Prescription provided and uptitration instructions given if necessary. [] (units unknown) (unknown) (unknown) (no date) (unknown) (unknown) - Previous [] on [] provided []% relief of pain for the expected duration of the (units unknown) (unknown) (unknown) (no date) (unknown) (unknown) - Referrals: N one indicated at this time. [] (units unknown) (unknown) (unknown) (no date) (unknown) (unknown) - SIJ provocat ion testing: [ (+/-) Iris's finger test, posterior thrust, (units unknown) (unknown) (unknown) (no date) (unknown) (unknown) - Straight Leg Raise: [(-/+) on the L side / R side / bilaterally] (units unknown) (unknown) (unknown) (no date) (unknown) (unknown) -to-moderate b ilateral foraminal stenosis (units unknown) (unknown) (unknown) (no date) (unknown) (unknown) 06/14/22 (units unknown) (unknown) (unknown) (no date) (unknown) (unknown) 05/22/2021, 2:31.? (u nits unknown) (unknown) (unknown) (no date) (unknown) (unknown) 990 (units unknown) (unknown) (unknown) (no date) (unknown) (unknown) ? Inspection - ? No gross appendicular or axial deformities (units unknown) (unknown) (unknown) (no date) (unknown) (unknown) ? Palpation -? [Tender to palpation of / No tenderness to palpation] (units unknown) (unknown) (unknown) (no date) (unknown) (unknown) ? ROM - [Lumba r flexion/ extension/ lateral rotation is limited due to pain / (units unknown) (unknown) (unknown) (no date) (unknown) (unknown) ? Special tests (uni ts unknown) (unknown) (unknown) (no date) (unknown) (unknown) ? (units unknown) (unknown) (unknown) (no date) (unknown) (unknown) ? Acetaminophen (units unknown) (unknown) (unknown) (no date) (unknown) (unknown) ? Antidepressants (units unknown) (unknown) (unknown) (no date) (unknown) (unknown) ? Antiepileptics (units unknown) (unknown) (unknown) (no date) (unknown) (unknown) ? Mu scle Relaxants (units unknown) (unknown) (unknown) (no date) (unknown) (unknown) ? NSAIDs ( units unknown) (unknown) (unknown) (no date) (unknown) (unknown) ? Opioids (units unknown) (unknown) (unknown) (no date) (unknown) (unknown) ? Steroids (units unknown) (unknown) (unknown) (no date) (unknown) (unknown) ? Topicals (units unknown) (unknown) (unknown) (no date) (unknown) (unknown) Age/Sex: 47 / M Date of Service: (units unknown) (unknown) (unknown) (no date) (unknown) (unknown) Aggravating fa ctors include: (units unknown) (unknown) (unknown) (no date) (unknown) (unknown) Alignment and Curvature:? There is normal bony alignment.? (units unknown) (unknown) (unknown) (no date) (unknown) (unknown) All other syst ems reviewed and are unremarkable except as noted in HPI. (units unknown) (unknown) (unknown) (no date) (unknown) (unknown) Allergies (units unknown) (unknown) (unknown) (no date) (unknown) (unknown) [place] [id number] (units unknown) (unknown) (unknown) (no date) (unknown) (unknown) Approved by: Vale Aden M.D. on 06/07/2022 at 14:37? (units unknown) (unknown) (unknown) (no date) (unknown) (unknown) Approved by: Fercho Khan M.D. on 06/04/2022 at 21:57 ? (units unknown) (unknown) (unknown) (no date) (unknown) (unknown) Assessment + Plan (u nits unknown) (unknown) (unknown) (no date) (unknown) (unknown) Assessment: (units unknown) (unknown) (unknown) (no date) (unknown) (unknown) Attending Dr: Dhiraj Daigle MD (units unknown) (unknown) (unknown) (no date) (unknown) (unknown) B/L S1 TFESI ( Dr. Blair) 05/26/2021 (units unknown) (unknown) (unknown) (no date) (unknown) (unknown) Babinski's Radha ngoing Downgoing (units unknown) (unknown) (unknown) (no date) (unknown) (unknown) Bone Marrow:? Wedge-shaped compression fracture T12 without marrow edema or (units unknown) (unknown) (unknown) (no date) (unknown) (unknown) Bones:? 5 [id number] vertebrae are present.? Pedicle screw fixation at L3 (units unknown) (unknown) (unknown) (no date) (unknown) (unknown) Bowel and blad kael: No loss of control (units unknown) (unknown) (unknown) (no date) (unknown) (unknown) COMPARISON:? [facility], MR, MR LUMBAR SPINE WO CON, 03/09/2022, 20:09. (units unknown) (unknown) (unknown) (no date) (unknown) (unknown) COMPARISON:? S Located within [facility], CR, XR LUMBAR SPINE 2 OR 3 VIEWS, (units unknown) (unknown) (unknown) (no date) (unknown) (unknown) Cardiovascular : No edema or cyanosis. 2+ peripheral pulses (units unknown) (unknown) (unknown) (no date) (unknown) (unknown) Chart review: (units unknown) (unknown) (unknown) (no date) (unknown) (unknown) Chief Complaint (uni ts unknown) (unknown) (unknown) (no date) (unknown) (unknown) Chief Complain t: Low back and leg pain (units unknown) (unknown) (unknown) (no date) (unknown) (unknown) Chronic T12 compression fracture without retropulsed fracture fragment (units unknown) (unknown) (unknown) (no date) (unknown) (unknown) Clonus None None (un its unknown) (unknown) (unknown) (no date) (unknown) (unknown) Conservative management includes: (units unknown) (unknown) (unknown) (no date) (unknown) (unknown) Continue [facility]. [] (units unknown) (unknown) (unknown) (no date) (unknown) (unknown) Continue home exercise program. 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 (units unknown) (unknown) (unknown) (no date) (unknown) (unknown) Details: (units unknown) (unknown) (unknown) (no date) (unknown) (unknown) Dictated by: Fercho Khan M.D. on 06/04/2022 at 21:55 ? ? (units unknown) (unknown) (unknown) (no date) (unknown) (unknown) Documented By: Dhiraj Daigle MD 06/13/22 1523 (units unknown) (unknown) (unknown) (no date) (unknown) (unknown) Draft (units unknown) (unknown) (unknown) (no date) (unknown) (unknown) Exam Narrative (unit s unknown) (unknown) (unknown) (no date) (unknown) (unknown) Exam Narrative: (uni ts unknown) (unknown) (unknown) (no date) (unknown) (unknown) Exam (units unknown) (unknown) (unknown) (no date) (unknown) (unknown) Mo DAVIDSON n's, Pelvic rocking on the R/L side / bilaterally] (units unknown) (unknown) (unknown) (no date) (unknown) (unknown) FINDINGS:? (units unknown) (unknown) (unknown) (no date) (unknown) (unknown) Gait/Station - [Non-antalgic gait. Heel (L5 strength) and toe (S1 strength) (units unknown) (unknown) (unknown) (no date) (unknown) (unknown) General: Well-nourished, well-developed, [sex] in no acute distress (units unknown) (unknown) (unknown) (no date) (unknown) (unknown) HPI (units unknown) (unknown) (unknown) (no date) (unknown) (unknown) He has been fo llowed by Dr. Blair at [facility]. He had bilateral S1 (units unknown) (unknown) (unknown) (no date) (unknown) (unknown) IMPRESSION:? (units unknown) (unknown) (unknown) (no date) (unknown) (unknown) INDICATIONS:? New lower extremity weakness, pain exacerbation after twist (units unknown) (unknown) (unknown) (no date) (unknown) (unknown) INDICATIONS:? hx of multiple back surgeries with pain after fall (units unknown) (unknown) (unknown) (no date) (unknown) (unknown) Image quality: ? Excellent.? (units unknown) (unknown) (unknown) (no date) (unknown) (unknown) Injections: (units unknown) (unknown) (unknown) (no date) (unknown) (unknown) Intake (units unknown) (unknown) (unknown) (no date) (unknown) (unknown) Intervention: Date: Outcome: (units unknown) (unknown) (unknown) (no date) (unknown) (unknown) Alyce loving, MR, MR LUMBAR SPINE WO CON, 03/09/2022, 20:09. (units unknown) (unknown) (unknown) (no date) (unknown) (unknown) JUSTIFICATION OF MEDICAL NECESSITY (units unknown) (unknown) (unknown) (no date) (unknown) (unknown) Kishor is a 47-y ear-old male with a history of chronic low back pain status post 3 (units unknown) (unknown) (unknown) (no date) (unknown) (unknown) L-spine/T-spin e/C-spin e MRI ordered to better delineate the anatomy and help (units unknown) (unknown) (unknown) (no date) (unknown) (unknown) L1-L2:? Disc s pace is preserved.? No central or foraminal stenosis (units unknown) (unknown) (unknown) (no date) (unknown) (unknown) L2 Hip Flexion 5/5 5/5? (units unknown) (unknown) (unknown) (no date) (unknown) (unknown) L2-L3:? Disc s pace narrowing and circumferential disc bulge results in moderate (units unknown) (unknown) (unknown) (no date) (unknown) (unknown) L3 Knee Extens ion 5/5 5/5 (units unknown) (unknown) (unknown) (no date) (unknown) (unknown) L3, L4 and L5 decompressive laminectomies with interbody fusion and posterior (units unknown) (unknown) (unknown) (no date) (unknown) (unknown) L3-L4:? Discec madonna and fusion with posterior decompression.? No central (units unknown) (unknown) (unknown) (no date) (unknown) (unknown) L4 Ankle Dorsi flexion 5/5 5/5 (units unknown) (unknown) (unknown) (no date) (unknown) (unknown) L4 Patella 2+ 2 (uni ts unknown) (unknown) (unknown) (no date) (unknown) (unknown) L4-L5:? Discec madonna and fusion with posterior decompression.? No central (units unknown) (unknown) (unknown) (no date) (unknown) (unknown) L5 Long Toe Ex tension 5/5 5/5 (units unknown) (unknown) (unknown) (no date) (unknown) (unknown) L5-S1:? Discec madonna and fusion with posterior decompression.? No central (units unknown) (unknown) (unknown) (no date) (unknown) (unknown) Loc: PAIN (units unknown) (unknown) (unknown) (no date) (unknown) (unknown) Lower lumbar s pine interbody fusion, posterior decompression and (units unknown) (unknown) (unknown) (no date) (unknown) (unknown) Lumbar spine f ixation appears stable. (units unknown) (unknown) (unknown) (no date) (unknown) (unknown) Lyrica 200 mg b.i.d. (units unknown) (unknown) (unknown) (no date) (unknown) (unknown) MSK: System re viewed and no additional complaints, except as documented. (units unknown) (unknown) (unknown) (no date) (unknown) (unknown) Medications: (units unknown) (unknown) (unknown) (no date) (unknown) (unknown) Moderate left and right foraminal stenosis (units unknown) (unknown) (unknown) (no date) (unknown) (unknown) Motor (units unknown) (unknown) (unknown) (no date) (unknown) (unknown) Musculoskeletal: (un its unknown) (unknown) (unknown) (no date) (unknown) (unknown) Neuro: System reviewed and no additional complaints, except as documented. (units unknown) (unknown) (unknown) (no date) (unknown) (unknown) Neurologic: (units unknown) (unknown) (unknown) (no date) (unknown) (unknown) No Known Drug Allergies Allergy (Verified 09/10/21 16:42) (units unknown) (unknown) (unknown) (no date) (unknown) (unknown) No suspicious bony lesions.? (units unknown) (unknown) (unknown) (no date) (unknown) (unknown) Noncontrast sa gittal T1 spin echo and T2 fast echo, sagittal STIR, and T2 fast (units unknown) (unknown) (unknown) (no date) (unknown) (unknown) Not indicated at this time. 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 MR LUMBAR SPINE WO CON (units unknown) (unknown) (unknown) (no date) (unknown) (unknown) PROCEDURE:? XR LUMBAR SPINE 2-3V (units unknown) (unknown) (unknown) (no date) (unknown) (unknown) PT: Last PT wa s on []. [He/she] has attended for [sessions] (units unknown) (unknown) (unknown) (no date) (unknown) (unknown) Pain Visit (units unknown) (unknown) (unknown) (no date) (unknown) (unknown) Pain location/Radiation: (units unknown) (unknown) (unknown) (no date) (unknown) (unknown) Pain rating: / 10 today, /10 at worst (units unknown) (unknown) (unknown) (no date) (unknown) (unknown) Paraspinous So ft Tissues:? No paravertebral masses.? (units unknown) (unknown) (unknown) (no date) (unknown) (unknown) Patient will r eturn for []. Risks and benefits were discussed. (units unknown) (unknown) (unknown) (no date) (unknown) (unknown) Patient's pain has been present for >6 weeks and is an average of >6/10 on 0-10 (units unknown) (unknown) (unknown) (no date) (unknown) (unknown) Patient: Kishor Carrasquillo MR#: [id number] (units unknown) (unknown) (unknown) (no date) (unknown) (unknown) Pertinent medi cations include: (units unknown) (unknown) (unknown) (no date) (unknown) (unknown) Plan (units unknown) (unknown) (unknown) (no date) (unknown) (unknown) Plan/Recommendations : (units unknown) (unknown) (unknown) (no date) (unknown) (unknown) Prescriptions Written: [] (units unknown) (unknown) (unknown) (no date) (unknown) (unknown) Previous pain treatments included: (units unknown) (unknown) (unknown) (no date) (unknown) (unknown) Psych: Appropr iate affect, answers questions appropriately (units unknown) (unknown) (unknown) (no date) (unknown) (unknown) Quality and ti gerri of pain: (units unknown) (unknown) (unknown) (no date) (unknown) (unknown) ROS Narrative (units unknown) (unknown) (unknown) (no date) (unknown) (unknown) ROS Narrative: (unit s unknown) (unknown) (unknown) (no date) (unknown) (unknown) ROS (units unknown) (unknown) (unknown) (no date) (unknown) (unknown) Reason For Visit (un its unknown) (unknown) (unknown) (no date) (unknown) (unknown) Red flag symptoms: ( units unknown) (unknown) (unknown) (no date) (unknown) (unknown) Reflex Right Left (u nits unknown) (unknown) (unknown) (no date) (unknown) (unknown) Reflexes: (units unknown) (unknown) (unknown) (no date) (unknown) (unknown) Relieving fact ors include: (units unknown) (unknown) (unknown) (no date) (unknown) (unknown) Respiratory: Non-labored breathing pattern on RA. No respiratory distress (units unknown) (unknown) (unknown) (no date) (unknown) (unknown) S1 Achilles 2+ 2 (un its unknown) (unknown) (unknown) (no date) (unknown) (unknown) S1 Ankle Plantarflexion 5/5 5/5 (units unknown) (unknown) (unknown) (no date) (unknown) (unknown) S1 appears (units unknown) (unknown) (unknown) (no date) (unknown) (unknown) Saddle anesthe marina: denies (units unknown) (unknown) (unknown) (no date) (unknown) (unknown) Segment Action Right Left (units unknown) (unknown) (unknown) (no date) (unknown) (unknown) Segment Reflex Right Left (units unknown) (unknown) (unknown) (no date) (unknown) (unknown) Sensory -? Int act to light touch of bilateral lower extremities. Allodynia (units unknown) (unknown) (unknown) (no date) (unknown) (unknown) Signed By: (units unknown) (unknown) (unknown) (no date) (unknown) (unknown) Skin: No appre ciable rashes or skin breakdown (units unknown) (unknown) (unknown) (no date) (unknown) (unknown) Smoking Status : Never smoker (units unknown) (unknown) (unknown) (no date) (unknown) (unknown) Soft tissues:? Overlying bowel gas pattern is normal.? No suspicious soft tissue (units unknown) (unknown) (unknown) (no date) (unknown) (unknown) Spinal Cord:? Conus medullaris terminates at the L1 level.? Visualized cord (units unknown) (unknown) (unknown) (no date) (unknown) (unknown) Standing: (units unknown) (unknown) (unknown) (no date) (unknown) (unknown) Surgery: Pativale nt is s/p L3-S1 posterior instrumented fusion (units unknown) (unknown) (unknown) (no date) (unknown) (unknown) T12 compressio n fracture is unchanged. (units unknown) (unknown) (unknown) (no date) (unknown) (unknown) T12-L1:? Disc space is preserved.? No central or foraminal stenosis. (units unknown) (unknown) (unknown) (no date) (unknown) (unknown) TECHNIQUE:? 2 views of the lumbar spine were acquired.? (units unknown) (unknown) (unknown) (no date) (unknown) (unknown) TECHNIQUE:? (units unknown) (unknown) (unknown) (no date) (unknown) (unknown) [facility] (units unknown) (unknown) (unknown) (no date) (unknown) (unknown) This note may have been all or partially generated using voice recognition (units unknown) (unknown) (unknown) (no date) (unknown) (unknown) Tobacco + Subs tance Use (units unknown) (unknown) (unknown) (no date) (unknown) (unknown) Tobacco Status (unit s unknown) (unknown) (unknown) (no date) (unknown) (unknown) Today I have r boogieiewed available medical information in the patient's medical (units unknown) (unknown) (unknown) (no date) (unknown) (unknown) Upper Motor Ne uron Signs: (units unknown) (unknown) (unknown) (no date) (unknown) (unknown) 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 (units unknown) (unknown) (unknown) (no date) (unknown) (unknown) We reviewed et iology, predisposing factor(s), natural course, imaging results as (units unknown) (unknown) (unknown) (no date) (unknown) (unknown) Weakness: denies (un its unknown) (unknown) (unknown) (no date) (unknown) (unknown) benefits of va rious treatment options were discussed with the patient in great (units unknown) (unknown) (unknown) (no date) (unknown) (unknown) bilateral fora solo stenosis (units unknown) (unknown) (unknown) (no date) (unknown) (unknown) bowel/bladder dysfunction, and perineal numbness were discussed. The patient was (units unknown) (unknown) (unknown) (no date) (unknown) (unknown) calcifications.? (un its unknown) (unknown) (unknown) (no date) (unknown) (unknown) cannot tolerat e physical therapy at the current time due to the intensity of the (units unknown) (unknown) (unknown) (no date) (unknown) (unknown) central stenosis. (u nits unknown) (unknown) (unknown) (no date) (unknown) (unknown) central stenos is.? Hypertrophic facet joints contribute to moderate bilateral (units unknown) (unknown) (unknown) (no date) (unknown) (unknown) change from (units unknown) (unknown) (unknown) (no date) (unknown) (unknown) claudication w ho presents for further evaluation of [CC]. (units unknown) (unknown) (unknown) (no date) (unknown) (unknown) compression fr acture, S1 radiculopathy, lumbar spinal stenosis with neurogenic (units unknown) (unknown) (unknown) (no date) (unknown) (unknown) demonstrates (units unknown) (unknown) (unknown) (no date) (unknown) (unknown) detail. (units unknown) (unknown) (unknown) (no date) (unknown) (unknown) foraminal (units unknown) (unknown) (unknown) (no date) (unknown) (unknown) from prior exam (uni ts unknown) (unknown) (unknown) (no date) (unknown) (unknown) have occurred. If there are any questions, please contact the Medical Records (units unknown) (unknown) (unknown) (no date) (unknown) (unknown) improved sleep , improved mobility, etc. (units unknown) (unknown) (unknown) (no date) (unknown) (unknown) in PT. [] (units unknown) (unknown) (unknown) (no date) (unknown) (unknown) in his lower extremities. He was also referred to a spine surgeon who stated (units unknown) (unknown) (unknown) (no date) (unknown) (unknown) instructed to report to the Emergency department, if these symptoms occur. (units unknown) (unknown) (unknown) (no date) (unknown) (unknown) instructed to stop if any side effects. [] (units unknown) (unknown) (unknown) (no date) (unknown) (unknown) instrumentatio n, stable (units unknown) (unknown) (unknown) (no date) (unknown) (unknown) intravenous dr ug use, sustained glucocorticoid use, osteoporosis, or a focal (units unknown) (unknown) (unknown) (no date) (unknown) (unknown) local anesthet ic. During that time patient able to participate in ADLs, had (units unknown) (unknown) (unknown) (no date) (unknown) (unknown) lumbar spine operations including posterior instrumented fusion at L3-S1, T12 (units unknown) (unknown) (unknown) (no date) (unknown) (unknown) may be performed.? ( units unknown) (unknown) (unknown) (no date) (unknown) (unknown) may occur. Occ asional wrong-word or 'sound-alike' substitutions may have (units unknown) (unknown) (unknown) (no date) (unknown) (unknown) meds. [] (units unknown) (unknown) (unknown) (no date) (unknown) (unknown) negative, Hype ralgesia - negative (units unknown) (unknown) (unknown) (no date) (unknown) (unknown) neurological d eficit with progressive or disabling symptoms. (units unknown) (unknown) (unknown) (no date) (unknown) (unknown) normal signal and size.? (units unknown) (unknown) (unknown) (no date) (unknown) (unknown) occurred due t o the inherent limitations of voice recognition software. Please (units unknown) (unknown) (unknown) (no date) (unknown) (unknown) of Spinal Cord Injur y) (units unknown) (unknown) (unknown) (no date) (unknown) (unknown) or immunosuppr essive therapy, previous or current cancer diagnosis, history of (units unknown) (unknown) (unknown) (no date) (unknown) (unknown) pain. [] (units unknown) (unknown) (unknown) (no date) (unknown) (unknown) read the note carefully and recognize, using context, where these substitutions (units unknown) (unknown) (unknown) (no date) (unknown) (unknown) record, includ ing relevant provider notes, laboratory work, and imaging. (units unknown) (unknown) (unknown) (no date) (unknown) (unknown) jules and (units unknown) (unknown) (unknown) (no date) (unknown) (unknown) scale and/or p ain interferes with ADLs. 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 (units unknown) (unknown) (unknown) (no date) (unknown) (unknown) severe (units unknown) (unknown) (unknown) (no date) (unknown) (unknown) software. Alth ough every effort is made to edit content, manager inside errors (units unknown) (unknown) (unknown) (no date) (unknown) (unknown) spin echo (units unknown) (unknown) (unknown) (no date) (unknown) (unknown) stability intact.] ( units unknown) (unknown) (unknown) (no date) (unknown) (unknown) stable.? 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 T12 compression fracture, (units unknown) (unknown) (unknown) (no date) (unknown) (unknown) stenosis (units unknown) (unknown) (unknown) (no date) (unknown) (unknown) stenosis.? Mild (uni ts unknown) (unknown) (unknown) (no date) (unknown) (unknown) stenosis.? (units unknown) (unknown) (unknown) (no date) (unknown) (unknown) that he may be a candidate for decompression fusion at L2-3 but recommended (units unknown) (unknown) (unknown) (no date) (unknown) (unknown) the prior exam .? No retropulsed fracture fragment. (units unknown) (unknown) (unknown) (no date) (unknown) (unknown) therapeutic in jections and surgery. The risks, consequences, alternatives and (units unknown) (unknown) (unknown) (no date) (unknown) (unknown) therapy. ?A re ferral was provided for the patient. [] (units unknown) (unknown) (unknown) (no date) (unknown) (unknown) through the [facility] spine.? In cases with scoliosis, additional coronal T2 fast (units unknown) (unknown) (unknown) (no date) (unknown) (unknown) to severe (units unknown) (unknown) (unknown) (no date) (unknown) (unknown) transforaminal MARI as were recommended by Dr. Blair but not performed.... (units unknown) (unknown) (unknown) (no date) (unknown) (unknown) transforaminal MARI. He was referred to Neurology for electrodiagnostic studies (units unknown) (unknown) (unknown) (no date) (unknown) (unknown) trial of lumba r epidural steroid injection at L2-3. Bilateral L2-3 (units unknown) (unknown) (unknown) (no date) (unknown) (unknown) unchanged.? (units unknown) (unknown) (unknown) (no date) (unknown) (unknown) walking intact . Tandem gait normal without evidence of ataxia. Lower quarter (units unknown) (unknown) (unknown) (no date) (unknown) (unknown) well as treatm ent options including medications, physical therapy/exercise, (units unknown) (unknown) (unknown) (no date) (unknown) (unknown) with future tr eatment planning. [] (units unknown) (unknown) Result panel 20 (unknown) (no date) (unknown) (unknown) (no value) (units unknown) (unknown) (unknown) (no date) (unknown) (unknown) (0=absent, 1=s light response, 2=brisk/normal, 3=very brisk, 4=clonus) (units unknown) (unknown) (unknown) (no date) (unknown) (unknown) (segments are from the International Standards for Neurological Classification (units unknown) (unknown) (unknown) (no date) (unknown) (unknown) - Activity: Co ntinue activity as tolerated. [] (units unknown) (unknown) (unknown) (no date) (unknown) (unknown) - Chiropractor , acupuncture[] (units unknown) (unknown) (unknown) (no date) (unknown) (unknown) - Continues cl inician directed home exercise program including exercises learned (units unknown) (unknown) (unknown) (no date) (unknown) (unknown) - Education: C auda equina and associated symptoms, including motor weakness, (units unknown) (unknown) (unknown) (no date) (unknown) (unknown) - FADIR: [(-/+ ) on the R side / L side / bilaterally] (units unknown) (unknown) (unknown) (no date) (unknown) (unknown) - Follow-up: [] (uni ts unknown) (unknown) (unknown) (no date) (unknown) (unknown) - Hip ROM is: [WNL / limited and painful on the R sided / L side / bilaterally] (units unknown) (unknown) (unknown) (no date) (unknown) (unknown) - I discussed risks, benefits and side effects. Additionally, patient was (units unknown) (unknown) (unknown) (no date) (unknown) (unknown) - Imaging: No new imaging indicated at this time. [] (units unknown) (unknown) (unknown) (no date) (unknown) (unknown) - Interventional/Surgica l procedures: None indicated at this time. [] (units unknown) (unknown) (unknown) (no date) (unknown) (unknown) - Lumbar facet loading: [(-/+) on the R side / L side / bilaterally] (units unknown) (unknown) (unknown) (no date) (unknown) (unknown) - Medications: No new prescription at this time. Patient will continue current (units unknown) (unknown) (unknown) (no date) (unknown) (unknown) - Medications: acetaminophen, NSAIDS, neuropathics, muscle relaxants [] (units unknown) (unknown) (unknown) (no date) (unknown) (unknown) - Physical The rapy: Completed 6 week course in the last 6 months OR Patient (units unknown) (unknown) (unknown) (no date) (unknown) (unknown) - Physical therapy/modalities/DME : Patient will likely benefit from physical (units unknown) (unknown) (unknown) (no date) (unknown) (unknown) - Prescription provided and uptitration instructions given if necessary. [] (units unknown) (unknown) (unknown) (no date) (unknown) (unknown) - Previous [] on [] provided []% relief of pain for the expected duration of the (units unknown) (unknown) (unknown) (no date) (unknown) (unknown) - Referrals: N one indicated at this time. [] (units unknown) (unknown) (unknown) (no date) (unknown) (unknown) - SIJ provocat ion testing: [ (+/-) Iris's finger test, posterior thrust, (units unknown) (unknown) (unknown) (no date) (unknown) (unknown) - Straight Leg Raise: [(-/+) on the L side / R side / bilaterally] (units unknown) (unknown) (unknown) (no date) (unknown) (unknown) -to-moderate b ilateral foraminal stenosis (units unknown) (unknown) (unknown) (no date) (unknown) (unknown) 06/14/22 (units unknown) (unknown) (unknown) (no date) (unknown) (unknown) 05/22/2021, 2:31.? (u nits unknown) (unknown) (unknown) (no date) (unknown) (unknown) 990 (units unknown) (unknown) (unknown) (no date) (unknown) (unknown) ? Inspection - ? No gross appendicular or axial deformities (units unknown) (unknown) (unknown) (no date) (unknown) (unknown) ? Palpation -? [Tender to palpation of / No tenderness to palpation] (units unknown) (unknown) (unknown) (no date) (unknown) (unknown) ? ROM - [Lumba r flexion/ extension/ lateral rotation is limited due to pain / (units unknown) (unknown) (unknown) (no date) (unknown) (unknown) ? Special tests (uni ts unknown) (unknown) (unknown) (no date) (unknown) (unknown) ? (units unknown) (unknown) (unknown) (no date) (unknown) (unknown) ? Acetaminophen (units unknown) (unknown) (unknown) (no date) (unknown) (unknown) ? Antidepressants (units unknown) (unknown) (unknown) (no date) (unknown) (unknown) ? Antiepileptics (units unknown) (unknown) (unknown) (no date) (unknown) (unknown) ? Mu scle Relaxants (units unknown) (unknown) (unknown) (no date) (unknown) (unknown) ? NSAIDs ( units unknown) (unknown) (unknown) (no date) (unknown) (unknown) ? Opioids (units unknown) (unknown) (unknown) (no date) (unknown) (unknown) ? Steroids (units unknown) (unknown) (unknown) (no date) (unknown) (unknown) ? Topicals (units unknown) (unknown) (unknown) (no date) (unknown) (unknown) Accompanied by : PARTNER: PADMA (units unknown) (unknown) (unknown) (no date) (unknown) (unknown) Age/Sex: 47 / M Date of Service: (units unknown) (unknown) (unknown) (no date) (unknown) (unknown) Aggravating fa ctors include: (units unknown) (unknown) (unknown) (no date) (unknown) (unknown) Alignment and Curvature:? There is normal bony alignment.? (units unknown) (unknown) (unknown) (no date) (unknown) (unknown) All other syst ems reviewed and are unremarkable except as noted in HPI. (units unknown) (unknown) (unknown) (no date) (unknown) (unknown) Allergies (units unknown) (unknown) (unknown) (no date) (unknown) (unknown) PANFILO [place] [id number] (units unknown) (unknown) (unknown) (no date) (unknown) (unknown) Approved by: Vale Aden M.D. on 06/07/2022 at 14:37? (units unknown) (unknown) (unknown) (no date) (unknown) (unknown) Approved by: Fercho Khan M.D. on 06/04/2022 at 21:57 ? (units unknown) (unknown) (unknown) (no date) (unknown) (unknown) Assessment + Plan (u nits unknown) (unknown) (unknown) (no date) (unknown) (unknown) Assessment: (units unknown) (unknown) (unknown) (no date) (unknown) (unknown) Attending Dr: Dhiraj Daigle MD (units unknown) (unknown) (unknown) (no date) (unknown) (unknown) B/L S1 TFESI ( Dr. Blair) 05/26/2021 (units unknown) (unknown) (unknown) (no date) (unknown) (unknown) Babinski's Radha ngoing Downgoing (units unknown) (unknown) (unknown) (no date) (unknown) (unknown) Bone Marrow:? Wedge-shaped compression fracture T12 without marrow edema or (units unknown) (unknown) (unknown) (no date) (unknown) (unknown) Bones:? 5 usd-jig-jetrpam vertebrae are present.? Pedicle screw fixation at L3 (units unknown) (unknown) (unknown) (no date) (unknown) (unknown) Bowel and blad kael: No loss of control (units unknown) (unknown) (unknown) (no date) (unknown) (unknown) COMPARISON:? [facility], MR, MR LUMBAR SPINE WO CON, 03/09/2022, 20:09. (units unknown) (unknown) (unknown) (no date) (unknown) (unknown) COMPARISON:? [facility], CR, XR LUMBAR SPINE 2 OR 3 VIEWS, (units unknown) (unknown) (unknown) (no date) (unknown) (unknown) CONSULT TO DIS CUSS LOW BACK PAIN (units unknown) (unknown) (unknown) (no date) (unknown) (unknown) Cardiovascular : No edema or cyanosis. 2+ peripheral pulses (units unknown) (unknown) (unknown) (no date) (unknown) (unknown) Chart review: (units unknown) (unknown) (unknown) (no date) (unknown) (unknown) Chief Complaint (uni ts unknown) (unknown) (unknown) (no date) (unknown) (unknown) Chief Complain t: Low back and leg pain (units unknown) (unknown) (unknown) (no date) (unknown) (unknown) Chronic T12 compression fracture without retropulsed fracture fragment (units unknown) (unknown) (unknown) (no date) (unknown) (unknown) Clonus None None (un its unknown) (unknown) (unknown) (no date) (unknown) (unknown) Conservative management includes: (units unknown) (unknown) (unknown) (no date) (unknown) (unknown) Continue [facility]. [] (units unknown) (unknown) (unknown) (no date) (unknown) (unknown) Continue home exercise program. 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 (units unknown) (unknown) (unknown) (no date) (unknown) (unknown) Details: (units unknown) (unknown) (unknown) (no date) (unknown) (unknown) Dictated by: Fercho Khan M.D. on 06/04/2022 at 21:55 ? ? (units unknown) (unknown) (unknown) (no date) (unknown) (unknown) Documented By: Dhiraj Daigle MD 06/13/22 1523 (units unknown) (unknown) (unknown) (no date) (unknown) (unknown) Draft (units unknown) (unknown) (unknown) (no date) (unknown) (unknown) Exam Narrative (unit s unknown) (unknown) (unknown) (no date) (unknown) (unknown) Exam Narrative: (uni ts unknown) (unknown) (unknown) (no date) (unknown) (unknown) Exam (units unknown) (unknown) (unknown) (no date) (unknown) (unknown) LETYMo n's, Pelvic rocking on the R/L side / bilaterally] (units unknown) (unknown) (unknown) (no date) (unknown) (unknown) FINDINGS:? (units unknown) (unknown) (unknown) (no date) (unknown) (unknown) Gait/Station - [Non-antalgic gait. Heel (L5 strength) and toe (S1 strength) (units unknown) (unknown) (unknown) (no date) (unknown) (unknown) General: Well-nourished, well-developed, [sex] in no acute distress (units unknown) (unknown) (unknown) (no date) (unknown) (unknown) HPI (units unknown) (unknown) (unknown) (no date) (unknown) (unknown) He has been fo llowed by Dr. Blair at [facility]. He had bilateral S1 (units unknown) (unknown) (unknown) (no date) (unknown) (unknown) IMPRESSION:? (units unknown) (unknown) (unknown) (no date) (unknown) (unknown) INDICATIONS:? New lower extremity weakness, pain exacerbation after twist (units unknown) (unknown) (unknown) (no date) (unknown) (unknown) INDICATIONS:? hx of multiple back surgeries with pain after fall (units unknown) (unknown) (unknown) (no date) (unknown) (unknown) Image quality: ? Excellent.? (units unknown) (unknown) (unknown) (no date) (unknown) (unknown) Injections: (units unknown) (unknown) (unknown) (no date) (unknown) (unknown) Intake Clinical Staf f (units unknown) (unknown) (unknown) (no date) (unknown) (unknown) Intake Note: (units unknown) (unknown) (unknown) (no date) (unknown) (unknown) Intake perform ed by: Paola Whitfield (units unknown) (unknown) (unknown) (no date) (unknown) (unknown) Intake (units unknown) (unknown) (unknown) (no date) (unknown) (unknown) Intervention: Date: Outcome: (units unknown) (unknown) (unknown) (no date) (unknown) (unknown) Is patient in pain?: Yes (units unknown) (unknown) (unknown) (no date) (unknown) (unknown) Alyce Otero l, MR, MR LUMBAR SPINE WO CON, 03/09/2022, 20:09. (units unknown) (unknown) (unknown) (no date) (unknown) (unknown) JUSTIFICATION OF MEDICAL NECESSITY (units unknown) (unknown) (unknown) (no date) (unknown) (unknown) Kishor is a 47-y ear-old male with a history of chronic low back pain status post 3 (units unknown) (unknown) (unknown) (no date) (unknown) (unknown) L-spine/T-spin e/C-spin e MRI ordered to better delineate the anatomy and help (units unknown) (unknown) (unknown) (no date) (unknown) (unknown) L1-L2:? Disc s pace is preserved.? No central or foraminal stenosis (units unknown) (unknown) (unknown) (no date) (unknown) (unknown) L2 Hip Flexion 5/5 5/5? (units unknown) (unknown) (unknown) (no date) (unknown) (unknown) L2-L3:? Disc s pace narrowing and circumferential disc bulge results in moderate (units unknown) (unknown) (unknown) (no date) (unknown) (unknown) L3 Knee Extens ion 5/5 5/5 (units unknown) (unknown) (unknown) (no date) (unknown) (unknown) L3, L4 and L5 decompressive laminectomies with interbody fusion and posterior (units unknown) (unknown) (unknown) (no date) (unknown) (unknown) L3-L4:? Discec madonna and fusion with posterior decompression.? No central (units unknown) (unknown) (unknown) (no date) (unknown) (unknown) L4 Ankle Dorsi flexion 5/5 5/5 (units unknown) (unknown) (unknown) (no date) (unknown) (unknown) L4 Patella 2+ 2 (uni ts unknown) (unknown) (unknown) (no date) (unknown) (unknown) L4-L5:? Discec madonna and fusion with posterior decompression.? No central (units unknown) (unknown) (unknown) (no date) (unknown) (unknown) L5 Long Toe Ex tension 5/5 5/5 (units unknown) (unknown) (unknown) (no date) (unknown) (unknown) L5-S1:? Discec madonna and fusion with posterior decompression.? No central (units unknown) (unknown) (unknown) (no date) (unknown) (unknown) Loc: PAIN (units unknown) (unknown) (unknown) (no date) (unknown) (unknown) Lower lumbar s pine interbody fusion, posterior decompression and (units unknown) (unknown) (unknown) (no date) (unknown) (unknown) Lumbar spine f ixation appears stable. (units unknown) (unknown) (unknown) (no date) (unknown) (unknown) Lyrica 200 mg b.i.d. (units unknown) (unknown) (unknown) (no date) (unknown) (unknown) MSK: System re viewed and no additional complaints, except as documented. (units unknown) (unknown) (unknown) (no date) (unknown) (unknown) Medications: (units unknown) (unknown) (unknown) (no date) (unknown) (unknown) Moderate left and right foraminal stenosis (units unknown) (unknown) (unknown) (no date) (unknown) (unknown) Motor (units unknown) (unknown) (unknown) (no date) (unknown) (unknown) Musculoskeletal: (un its unknown) (unknown) (unknown) (no date) (unknown) (unknown) Neuro: System reviewed and no additional complaints, except as documented. (units unknown) (unknown) (unknown) (no date) (unknown) (unknown) Neurologic: (units unknown) (unknown) (unknown) (no date) (unknown) (unknown) No Known Drug Allergies Allergy (Verified 06/14/22 10:45) (units unknown) (unknown) (unknown) (no date) (unknown) (unknown) No suspicious bony lesions.? (units unknown) (unknown) (unknown) (no date) (unknown) (unknown) Noncontrast sa gittal T1 spin echo and T2 fast echo, sagittal STIR, and T2 fast (units unknown) (unknown) (unknown) (no date) (unknown) (unknown) Not indicated at this time. 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 MR LUMBAR SPINE WO CON (units unknown) (unknown) (unknown) (no date) (unknown) (unknown) PROCEDURE:? XR LUMBAR SPINE 2-3V (units unknown) (unknown) (unknown) (no date) (unknown) (unknown) PT: Last PT wa s on []. [He/she] has attended for [sessions] (units unknown) (unknown) (unknown) (no date) (unknown) (unknown) Pain Scale (units unknown) (unknown) (unknown) (no date) (unknown) (unknown) Pain Visit (units unknown) (unknown) (unknown) (no date) (unknown) (unknown) Pain location/Radiation: (units unknown) (unknown) (unknown) (no date) (unknown) (unknown) Pain rating: / 10 today, /10 at worst (units unknown) (unknown) (unknown) (no date) (unknown) (unknown) Paraspinous So ft Tissues:? No paravertebral masses.? (units unknown) (unknown) (unknown) (no date) (unknown) (unknown) Patient will r eturn for []. Risks and benefits were discussed. (units unknown) (unknown) (unknown) (no date) (unknown) (unknown) Patient's pain has been present for >6 weeks and is an average of >6/10 on 0-10 (units unknown) (unknown) (unknown) (no date) (unknown) (unknown) Patient: Kishor Carrasquillo MR#: [id number] (units unknown) (unknown) (unknown) (no date) (unknown) (unknown) Pertinent medi cations include: (units unknown) (unknown) (unknown) (no date) (unknown) (unknown) Plan (units unknown) (unknown) (unknown) (no date) (unknown) (unknown) Plan/Recommendations : (units unknown) (unknown) (unknown) (no date) (unknown) (unknown) Prescriptions Written: [] (units unknown) (unknown) (unknown) (no date) (unknown) (unknown) Previous pain treatments included: (units unknown) (unknown) (unknown) (no date) (unknown) (unknown) Psych: Appropr iate affect, answers questions appropriately (units unknown) (unknown) (unknown) (no date) (unknown) (unknown) Quality and ti gerri of pain: (units unknown) (unknown) (unknown) (no date) (unknown) (unknown) ROS Narrative (units unknown) (unknown) (unknown) (no date) (unknown) (unknown) ROS Narrative: (unit s unknown) (unknown) (unknown) (no date) (unknown) (unknown) ROS (units unknown) (unknown) (unknown) (no date) (unknown) (unknown) Reason For Visit (un its unknown) (unknown) (unknown) (no date) (unknown) (unknown) Red flag symptoms: ( units unknown) (unknown) (unknown) (no date) (unknown) (unknown) Reflex Right Left (u nits unknown) (unknown) (unknown) (no date) (unknown) (unknown) Reflexes: (units unknown) (unknown) (unknown) (no date) (unknown) (unknown) Relieving fact ors include: (units unknown) (unknown) (unknown) (no date) (unknown) (unknown) Respiratory: Non-labored breathing pattern on RA. No respiratory distress (units unknown) (unknown) (unknown) (no date) (unknown) (unknown) S1 Achilles 2+ 2 (un its unknown) (unknown) (unknown) (no date) (unknown) (unknown) S1 Ankle Plantarflexion 5/5 5/5 (units unknown) (unknown) (unknown) (no date) (unknown) (unknown) S1 appears (units unknown) (unknown) (unknown) (no date) (unknown) (unknown) Saddle anesthe marina: denies (units unknown) (unknown) (unknown) (no date) (unknown) (unknown) Segment Action Right Left (units unknown) (unknown) (unknown) (no date) (unknown) (unknown) Segment Reflex Right Left (units unknown) (unknown) (unknown) (no date) (unknown) (unknown) Sensory -? Int act to light touch of bilateral lower extremities. Allodynia (units unknown) (unknown) (unknown) (no date) (unknown) (unknown) Signed By: (units unknown) (unknown) (unknown) (no date) (unknown) (unknown) Skin: No appre ciable rashes or skin breakdown (units unknown) (unknown) (unknown) (no date) (unknown) (unknown) Smoking Status : Never smoker (units unknown) (unknown) (unknown) (no date) (unknown) (unknown) Soft tissues:? Overlying bowel gas pattern is normal.? No suspicious soft tissue (units unknown) (unknown) (unknown) (no date) (unknown) (unknown) Spinal Cord:? Conus medullaris terminates at the L1 level.? Visualized cord (units unknown) (unknown) (unknown) (no date) (unknown) (unknown) Standing: (units unknown) (unknown) (unknown) (no date) (unknown) (unknown) Surgery: Patie nt is s/p L3-S1 posterior instrumented fusion (units unknown) (unknown) (unknown) (no date) (unknown) (unknown) T12 compressio n fracture is unchanged. (units unknown) (unknown) (unknown) (no date) (unknown) (unknown) T12-L1:? Disc space is preserved.? No central or foraminal stenosis. (units unknown) (unknown) (unknown) (no date) (unknown) (unknown) TECHNIQUE:? 2 views of the lumbar spine were acquired.? (units unknown) (unknown) (unknown) (no date) (unknown) (unknown) TECHNIQUE:? (units unknown) (unknown) (unknown) (no date) (unknown) (unknown) [facility] (units unknown) (unknown) (unknown) (no date) (unknown) (unknown) This note may have been all or partially generated using voice recognition (units unknown) (unknown) (unknown) (no date) (unknown) (unknown) Tobacco + Subs tance Use (units unknown) (unknown) (unknown) (no date) (unknown) (unknown) Tobacco Status (unit s unknown) (unknown) (unknown) (no date) (unknown) (unknown) Today I have r eviewed available medical information in the patient's medical (units unknown) (unknown) (unknown) (no date) (unknown) (unknown) Upper Motor Ne uron Signs: (units unknown) (unknown) (unknown) (no date) (unknown) (unknown) 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 (units unknown) (unknown) (unknown) (no date) (unknown) (unknown) We reviewed et iology, predisposing factor(s), natural course, imaging results as (units unknown) (unknown) (unknown) (no date) (unknown) (unknown) Weakness: denies (un its unknown) (unknown) (unknown) (no date) (unknown) (unknown) benefits of va rious treatment options were discussed with the patient in great (units unknown) (unknown) (unknown) (no date) (unknown) (unknown) bilateral fora solo stenosis (units unknown) (unknown) (unknown) (no date) (unknown) (unknown) bowel/bladder dysfunction, and perineal numbness were discussed. The patient was (units unknown) (unknown) (unknown) (no date) (unknown) (unknown) calcifications.? (un its unknown) (unknown) (unknown) (no date) (unknown) (unknown) cannot tolerat e physical therapy at the current time due to the intensity of the (units unknown) (unknown) (unknown) (no date) (unknown) (unknown) central stenosis. (u nits unknown) (unknown) (unknown) (no date) (unknown) (unknown) central stenos is.? Hypertrophic facet joints contribute to moderate bilateral (units unknown) (unknown) (unknown) (no date) (unknown) (unknown) change from (units unknown) (unknown) (unknown) (no date) (unknown) (unknown) claudication w ho presents for further evaluation of [CC]. (units unknown) (unknown) (unknown) (no date) (unknown) (unknown) compression fr acture, S1 radiculopathy, lumbar spinal stenosis with neurogenic (units unknown) (unknown) (unknown) (no date) (unknown) (unknown) demonstrates (units unknown) (unknown) (unknown) (no date) (unknown) (unknown) detail. (units unknown) (unknown) (unknown) (no date) (unknown) (unknown) foraminal (units unknown) (unknown) (unknown) (no date) (unknown) (unknown) from prior exam (uni ts unknown) (unknown) (unknown) (no date) (unknown) (unknown) have occurred. If there are any questions, please contact the Medical Records (units unknown) (unknown) (unknown) (no date) (unknown) (unknown) improved sleep , improved mobility, etc. (units unknown) (unknown) (unknown) (no date) (unknown) (unknown) in PT. [] (units unknown) (unknown) (unknown) (no date) (unknown) (unknown) in his lower extremities. He was also referred to a spine surgeon who stated (units unknown) (unknown) (unknown) (no date) (unknown) (unknown) instructed to report to the Emergency department, if these symptoms occur. (units unknown) (unknown) (unknown) (no date) (unknown) (unknown) instructed to stop if any side effects. [] (units unknown) (unknown) (unknown) (no date) (unknown) (unknown) instrumentatio n, stable (units unknown) (unknown) (unknown) (no date) (unknown) (unknown) intravenous dr ug use, sustained glucocorticoid use, osteoporosis, or a focal (units unknown) (unknown) (unknown) (no date) (unknown) (unknown) local anesthet ic. During that time patient able to participate in ADLs, had (units unknown) (unknown) (unknown) (no date) (unknown) (unknown) lumbar spine operations including posterior instrumented fusion at L3-S1, T12 (units unknown) (unknown) (unknown) (no date) (unknown) (unknown) may be performed.? ( units unknown) (unknown) (unknown) (no date) (unknown) (unknown) may occur. Occ asional wrong-word or 'sound-alike' substitutions may have (units unknown) (unknown) (unknown) (no date) (unknown) (unknown) meds. [] (units unknown) (unknown) (unknown) (no date) (unknown) (unknown) negative, Hype ralgesia - negative (units unknown) (unknown) (unknown) (no date) (unknown) (unknown) neurological d eficit with progressive or disabling symptoms. (units unknown) (unknown) (unknown) (no date) (unknown) (unknown) normal signal and size.? (units unknown) (unknown) (unknown) (no date) (unknown) (unknown) occurred due t o the inherent limitations of voice recognition software. Please (units unknown) (unknown) (unknown) (no date) (unknown) (unknown) of Spinal Cord Injur y) (units unknown) (unknown) (unknown) (no date) (unknown) (unknown) or immunosuppr essive therapy, previous or current cancer diagnosis, history of (units unknown) (unknown) (unknown) (no date) (unknown) (unknown) pain. [] (units unknown) (unknown) (unknown) (no date) (unknown) (unknown) read the note carefully and recognize, using context, where these substitutions (units unknown) (unknown) (unknown) (no date) (unknown) (unknown) record, includ ing relevant provider notes, laboratory work, and imaging. (units unknown) (unknown) (unknown) (no date) (unknown) (unknown) jules and (units unknown) (unknown) (unknown) (no date) (unknown) (unknown) scale and/or p ain interferes with ADLs. 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 (units unknown) (unknown) (unknown) (no date) (unknown) (unknown) severe (units unknown) (unknown) (unknown) (no date) (unknown) (unknown) software. Alth ough every effort is made to edit content, manager inside errors (units unknown) (unknown) (unknown) (no date) (unknown) (unknown) spin echo (units unknown) (unknown) (unknown) (no date) (unknown) (unknown) stability intact.] ( units unknown) (unknown) (unknown) (no date) (unknown) (unknown) stable.? 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 T12 compression fracture, (units unknown) (unknown) (unknown) (no date) (unknown) (unknown) stenosis (units unknown) (unknown) (unknown) (no date) (unknown) (unknown) stenosis.? Mild (uni ts unknown) (unknown) (unknown) (no date) (unknown) (unknown) stenosis.? (units unknown) (unknown) (unknown) (no date) (unknown) (unknown) that he may be a candidate for decompression fusion at L2-3 but recommended (units unknown) (unknown) (unknown) (no date) (unknown) (unknown) the prior exam .? No retropulsed fracture fragment. (units unknown) (unknown) (unknown) (no date) (unknown) (unknown) therapeutic in jections and surgery. The risks, consequences, alternatives and (units unknown) (unknown) (unknown) (no date) (unknown) (unknown) therapy. ?A re ferral was provided for the patient. [] (units unknown) (unknown) (unknown) (no date) (unknown) (unknown) through the [facility] spine.? In cases with scoliosis, additional coronal T2 fast (units unknown) (unknown) (unknown) (no date) (unknown) (unknown) to severe (units unknown) (unknown) (unknown) (no date) (unknown) (unknown) transforaminal MARI as were recommended by Dr. Blair but not performed.... (units unknown) (unknown) (unknown) (no date) (unknown) (unknown) transforaminal MARI. He was referred to Neurology for electrodiagnostic studies (units unknown) (unknown) (unknown) (no date) (unknown) (unknown) trial of lumba r epidural steroid injection at L2-3. Bilateral L2-3 (units unknown) (unknown) (unknown) (no date) (unknown) (unknown) unchanged.? (units unknown) (unknown) (unknown) (no date) (unknown) (unknown) walking intact . Tandem gait normal without evidence of ataxia. Lower quarter (units unknown) (unknown) (unknown) (no date) (unknown) (unknown) well as treatm ent options including medications, physical therapy/exercise, (units unknown) (unknown) (unknown) (no date) (unknown) (unknown) with future tr eatment planning. [] (units unknown) (unknown) Result panel 21 (unknown) (no date) (unknown) (unknown) (no value) (units unknown) (unknown) (unknown) (no date) (unknown) (unknown) (0=absent, 1=s light response, 2=brisk/normal, 3=very brisk, 4=clonus) (units unknown) (unknown) (unknown) (no date) (unknown) (unknown) (segments are from the International Standards for Neurological Classification (units unknown) (unknown) (unknown) (no date) (unknown) (unknown) - Activity: Co ntinue activity as tolerated. [] (units unknown) (unknown) (unknown) (no date) (unknown) (unknown) - Chiropractor , acupuncture[] (units unknown) (unknown) (unknown) (no date) (unknown) (unknown) - Continues cl inician directed home exercise program including exercises learned (units unknown) (unknown) (unknown) (no date) (unknown) (unknown) - Education: C auda equina and associated symptoms, including motor weakness, (units unknown) (unknown) (unknown) (no date) (unknown) (unknown) - FADIR: [(-/+ ) on the R side / L side / bilaterally] (units unknown) (unknown) (unknown) (no date) (unknown) (unknown) - Follow-up: [] (uni ts unknown) (unknown) (unknown) (no date) (unknown) (unknown) - Hip ROM is: [WNL / limited and painful on the R sided / L side / bilaterally] (units unknown) (unknown) (unknown) (no date) (unknown) (unknown) - I discussed risks, benefits and side effects. Additionally, patient was (units unknown) (unknown) (unknown) (no date) (unknown) (unknown) - Imaging: No new imaging indicated at this time. [] (units unknown) (unknown) (unknown) (no date) (unknown) (unknown) - Interventional/Surgica l procedures: None indicated at this time. [] (units unknown) (unknown) (unknown) (no date) (unknown) (unknown) - Lumbar facet loading: [(-/+) on the R side / L side / bilaterally] (units unknown) (unknown) (unknown) (no date) (unknown) (unknown) - Medications: No new prescription at this time. Patient will continue current (units unknown) (unknown) (unknown) (no date) (unknown) (unknown) - Medications: acetaminophen, NSAIDS, neuropathics, muscle relaxants [] (units unknown) (unknown) (unknown) (no date) (unknown) (unknown) - Physical The rapy: Completed 6 week course in the last 6 months OR Patient (units unknown) (unknown) (unknown) (no date) (unknown) (unknown) - Physical therapy/modalities/DME : Patient will likely benefit from physical (units unknown) (unknown) (unknown) (no date) (unknown) (unknown) - Prescription provided and uptitration instructions given if necessary. [] (units unknown) (unknown) (unknown) (no date) (unknown) (unknown) - Previous [] on [] provided []% relief of pain for the expected duration of the (units unknown) (unknown) (unknown) (no date) (unknown) (unknown) - Referrals: N one indicated at this time. [] (units unknown) (unknown) (unknown) (no date) (unknown) (unknown) - SIJ provocat ion testing: [ (+/-) Iris's finger test, posterior thrust, (units unknown) (unknown) (unknown) (no date) (unknown) (unknown) - Straight Leg Raise: [(-/+) on the L side / R side / bilaterally] (units unknown) (unknown) (unknown) (no date) (unknown) (unknown) -to-moderate b ilateral foraminal stenosis (units unknown) (unknown) (unknown) (no date) (unknown) (unknown) 06/14/22 (units unknown) (unknown) (unknown) (no date) (unknown) (unknown) 10:53 (units unknown) (unknown) (unknown) (no date) (unknown) (unknown) 05/22/2021, 2:31.? (u nits unknown) (unknown) (unknown) (no date) (unknown) (unknown) 990 (units unknown) (unknown) (unknown) (no date) (unknown) (unknown) ? Inspection - ? No gross appendicular or axial deformities (units unknown) (unknown) (unknown) (no date) (unknown) (unknown) ? Palpation -? [Tender to palpation of / No tenderness to palpation] (units unknown) (unknown) (unknown) (no date) (unknown) (unknown) ? ROM - [Lumba r flexion/ extension/ lateral rotation is limited due to pain / (units unknown) (unknown) (unknown) (no date) (unknown) (unknown) ? Special tests (uni ts unknown) (unknown) (unknown) (no date) (unknown) (unknown) ? (units unknown) (unknown) (unknown) (no date) (unknown) (unknown) ? Acetaminophen (units unknown) (unknown) (unknown) (no date) (unknown) (unknown) ? Antidepressants (units unknown) (unknown) (unknown) (no date) (unknown) (unknown) ? Antiepileptics (units unknown) (unknown) (unknown) (no date) (unknown) (unknown) ? Mu scle Relaxants (units unknown) (unknown) (unknown) (no date) (unknown) (unknown) ? NSAIDs ( units unknown) (unknown) (unknown) (no date) (unknown) (unknown) ? Opioids (units unknown) (unknown) (unknown) (no date) (unknown) (unknown) ? Steroids (units unknown) (unknown) (unknown) (no date) (unknown) (unknown) ? Topicals (units unknown) (unknown) (unknown) (no date) (unknown) (unknown) Accompanied by : PARTNER: PADMA (units unknown) (unknown) (unknown) (no date) (unknown) (unknown) Age/Sex: 47 / M Date of Service: (units unknown) (unknown) (unknown) (no date) (unknown) (unknown) Aggravating fa ctors include: (units unknown) (unknown) (unknown) (no date) (unknown) (unknown) Alignment and Curvature:? There is normal bony alignment.? (units unknown) (unknown) (unknown) (no date) (unknown) (unknown) All other syst ems reviewed and are unremarkable except as noted in HPI. (units unknown) (unknown) (unknown) (no date) (unknown) (unknown) Allergies (units unknown) (unknown) (unknown) (no date) (unknown) (unknown) [place] [address] (units unknown) (unknown) (unknown) (no date) (unknown) (unknown) Approved by: Vale Aden M.D. on 06/07/2022 at 14:37? (units unknown) (unknown) (unknown) (no date) (unknown) (unknown) Approved by: Fercho Khan M.D. on 06/04/2022 at 21:57 ? (units unknown) (unknown) (unknown) (no date) (unknown) (unknown) Assessment + Plan (u nits unknown) (unknown) (unknown) (no date) (unknown) (unknown) Assessment: (units unknown) (unknown) (unknown) (no date) (unknown) (unknown) Attending Dr: Dhiraj Daigle MD (units unknown) (unknown) (unknown) (no date) (unknown) (unknown) B/L S1 TFESI ( Dr. Blair) 05/26/2021 (units unknown) (unknown) (unknown) (no date) (unknown) (unknown) BMI 34.0 (units unknown) (unknown) (unknown) (no date) (unknown) (unknown) BP 120/70 (units unknown) (unknown) (unknown) (no date) (unknown) (unknown) Babinski's Radha ngoing Downgoing (units unknown) (unknown) (unknown) (no date) (unknown) (unknown) Blood Pressure Location Rt brachial (units unknown) (unknown) (unknown) (no date) (unknown) (unknown) Bone Marrow:? Wedge-shaped compression fracture T12 without marrow edema or (units unknown) (unknown) (unknown) (no date) (unknown) (unknown) Bones:? 5 [id number] vertebrae are present.? Pedicle screw fixation at L3 (units unknown) (unknown) (unknown) (no date) (unknown) (unknown) Bowel and blad kael: No loss of control (units unknown) (unknown) (unknown) (no date) (unknown) (unknown) COMPARISON:? [facility], MR, MR LUMBAR SPINE WO CON, 03/09/2022, 20:09. (units unknown) (unknown) (unknown) (no date) (unknown) (unknown) COMPARISON:? [facility], CR, XR LUMBAR SPINE 2 OR 3 VIEWS, (units unknown) (unknown) (unknown) (no date) (unknown) (unknown) CONSULT TO DIS CUSS LOW BACK PAIN (units unknown) (unknown) (unknown) (no date) (unknown) (unknown) Cardiovascular : No edema or cyanosis. 2+ peripheral pulses (units unknown) (unknown) (unknown) (no date) (unknown) (unknown) Chart review: (units unknown) (unknown) (unknown) (no date) (unknown) (unknown) Chief Complaint (uni ts unknown) (unknown) (unknown) (no date) (unknown) (unknown) Chief Complain t: Low back and leg pain (units unknown) (unknown) (unknown) (no date) (unknown) (unknown) Chronic T12 compression fracture without retropulsed fracture fragment (units unknown) (unknown) (unknown) (no date) (unknown) (unknown) Clonus None None (un its unknown) (unknown) (unknown) (no date) (unknown) (unknown) Confirmed 06/14/22] (units unknown) (unknown) (unknown) (no date) (unknown) (unknown) Conservative management includes: (units unknown) (unknown) (unknown) (no date) (unknown) (unknown) Continue [facility] therapy. [] (units unknown) (unknown) (unknown) (no date) (unknown) (unknown) Continue home exercise program. 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 (units unknown) (unknown) (unknown) (no date) (unknown) (unknown) Details: (units unknown) (unknown) (unknown) (no date) (unknown) (unknown) Dictated by: Fercho Khan M.D. on 06/04/2022 at 21:55 ? ? (units unknown) (unknown) (unknown) (no date) (unknown) (unknown) Documented By: Dhiraj Daigle MD 06/13/22 1523 (units unknown) (unknown) (unknown) (no date) (unknown) (unknown) Draft (units unknown) (unknown) (unknown) (no date) (unknown) (unknown) Exam Narrative (unit s unknown) (unknown) (unknown) (no date) (unknown) (unknown) Exam Narrative: (uni ts unknown) (unknown) (unknown) (no date) (unknown) (unknown) Exam (units unknown) (unknown) (unknown) (no date) (unknown) (unknown) Mo DAVIDSON n's, Pelvic rocking on the R/L side / bilaterally] (units unknown) (unknown) (unknown) (no date) (unknown) (unknown) FINDINGS:? (units unknown) (unknown) (unknown) (no date) (unknown) (unknown) Gait/Station - [Non-antalgic gait. Heel (L5 strength) and toe (S1 strength) (units unknown) (unknown) (unknown) (no date) (unknown) (unknown) General: Well-nourished, well-developed, [sex] in no acute distress (units unknown) (unknown) (unknown) (no date) (unknown) (unknown) HPI (units unknown) (unknown) (unknown) (no date) (unknown) (unknown) He has been fo llowed by Dr. Blair at [facility]. He had bilateral S1 (units unknown) (unknown) (unknown) (no date) (unknown) (unknown) Height 6 ft (units unknown) (unknown) (unknown) (no date) (unknown) (unknown) IMPRESSION:? (units unknown) (unknown) (unknown) (no date) (unknown) (unknown) INDICATIONS:? New lower extremity weakness, pain exacerbation after twist (units unknown) (unknown) (unknown) (no date) (unknown) (unknown) INDICATIONS:? hx of multiple back surgeries with pain after fall (units unknown) (unknown) (unknown) (no date) (unknown) (unknown) Image quality: ? Excellent.? (units unknown) (unknown) (unknown) (no date) (unknown) (unknown) Injections: (units unknown) (unknown) (unknown) (no date) (unknown) (unknown) Intake Clinical Staf f (units unknown) (unknown) (unknown) (no date) (unknown) (unknown) Intake Note: (units unknown) (unknown) (unknown) (no date) (unknown) (unknown) Intake perform ed by: Paola Whitfield (units unknown) (unknown) (unknown) (no date) (unknown) (unknown) Intake (units unknown) (unknown) (unknown) (no date) (unknown) (unknown) Intervention: Date: Outcome: (units unknown) (unknown) (unknown) (no date) (unknown) (unknown) Is patient in pain?: Yes Pain scale (1-10): 8 (units unknown) (unknown) (unknown) (no date) (unknown) (unknown) [facility], MR, MR LUMBAR SPINE WO CON, 03/09/2022, 20:09. (units unknown) (unknown) (unknown) (no date) (unknown) (unknown) JUSTIFICATION OF MEDICAL NECESSITY (units unknown) (unknown) (unknown) (no date) (unknown) (unknown) Kishor is a 47-y ear-old male with a history of chronic low back pain status post 3 (units unknown) (unknown) (unknown) (no date) (unknown) (unknown) L-spine/T-spin e/C-spin e MRI ordered to better delineate the anatomy and help (units unknown) (unknown) (unknown) (no date) (unknown) (unknown) L1-L2:? Disc s pace is preserved.? No central or foraminal stenosis (units unknown) (unknown) (unknown) (no date) (unknown) (unknown) L2 Hip Flexion 5/5 5/5? (units unknown) (unknown) (unknown) (no date) (unknown) (unknown) L2-L3:? Disc s pace narrowing and circumferential disc bulge results in moderate (units unknown) (unknown) (unknown) (no date) (unknown) (unknown) L3 Knee Extens ion 5/5 5/5 (units unknown) (unknown) (unknown) (no date) (unknown) (unknown) L3, L4 and L5 decompressive laminectomies with interbody fusion and posterior (units unknown) (unknown) (unknown) (no date) (unknown) (unknown) L3-L4:? Discec madonna and fusion with posterior decompression.? No central (units unknown) (unknown) (unknown) (no date) (unknown) (unknown) L4 Ankle Dorsi flexion /5 5/5 (units unknown) (unknown) (unknown) (no date) (unknown) (unknown) L4 Patella 2+ 2 (uni ts unknown) (unknown) (unknown) (no date) (unknown) (unknown) L4-L5:? Discec madonna and fusion with posterior decompression.? No central (units unknown) (unknown) (unknown) (no date) (unknown) (unknown) L5 Long Toe Ex tension /5 5/5 (units unknown) (unknown) (unknown) (no date) (unknown) (unknown) L5-S1:? Discec madonna and fusion with posterior decompression.? No central (units unknown) (unknown) (unknown) (no date) (unknown) (unknown) Loc: PAIN (units unknown) (unknown) (unknown) (no date) (unknown) (unknown) Lower lumbar s pine interbody fusion, posterior decompression and (units unknown) (unknown) (unknown) (no date) (unknown) (unknown) Lumbar spine f ixation appears stable. (units unknown) (unknown) (unknown) (no date) (unknown) (unknown) Lyrica 200 mg b.i.d. (units unknown) (unknown) (unknown) (no date) (unknown) (unknown) MSK: System re viewed and no additional complaints, except as documented. (units unknown) (unknown) (unknown) (no date) (unknown) (unknown) Medications (units unknown) (unknown) (unknown) (no date) (unknown) (unknown) Medications: (units unknown) (unknown) (unknown) (no date) (unknown) (unknown) Moderate left and right foraminal stenosis (units unknown) (unknown) (unknown) (no date) (unknown) (unknown) Motor (units unknown) (unknown) (unknown) (no date) (unknown) (unknown) Musculoskeletal: (un its unknown) (unknown) (unknown) (no date) (unknown) (unknown) Neuro: System reviewed and no additional complaints, except as documented. (units unknown) (unknown) (unknown) (no date) (unknown) (unknown) Neurologic: (units unknown) (unknown) (unknown) (no date) (unknown) (unknown) No suspicious bony lesions.? (units unknown) (unknown) (unknown) (no date) (unknown) (unknown) Noncontrast sa gittal T1 spin echo and T2 fast echo, sagittal STIR, and T2 fast (units unknown) (unknown) (unknown) (no date) (unknown) (unknown) Not indicated at this time. [] (units unknown) (unknown) (unknown) (no date) (unknown) (unknown) Numbness/Tingling: ( units unknown) (unknown) (unknown) (no date) (unknown) (unknown) Objective Data (unit s unknown) (unknown) (unknown) (no date) (unknown) (unknown) Objective Data: (uni ts unknown) (unknown) (unknown) (no date) (unknown) (unknown) Onset/Context of parish n: (units unknown) (unknown) (unknown) (no date) (unknown) (unknown) Onset: (units unknown) (unknown) (unknown) (no date) (unknown) (unknown) Other: Psychology/Acupuncture /care associate (units unknown) (unknown) (unknown) (no date) (unknown) (unknown) Oxygen Deliver y Method room air (units unknown) (unknown) (unknown) (no date) (unknown) (unknown) PFSH (units unknown) (unknown) (unknown) (no date) (unknown) (unknown) PROCEDURE:? MR LUMBAR SPINE WO CON (units unknown) (unknown) (unknown) (no date) (unknown) (unknown) PROCEDURE:? XR LUMBAR SPINE 2-3V (units unknown) (unknown) (unknown) (no date) (unknown) (unknown) PT: Last PT wa s on []. [He/she] has attended for [sessions] (units unknown) (unknown) (unknown) (no date) (unknown) (unknown) Pain Scale (units unknown) (unknown) (unknown) (no date) (unknown) (unknown) Pain Visit (units unknown) (unknown) (unknown) (no date) (unknown) (unknown) Pain location/Radiation: (units unknown) (unknown) (unknown) (no date) (unknown) (unknown) Pain rating: / 10 today, /10 at worst (units unknown) (unknown) (unknown) (no date) (unknown) (unknown) Paraspinous So ft Tissues:? No paravertebral masses.? (units unknown) (unknown) (unknown) (no date) (unknown) (unknown) Patient will r eturn for []. Risks and benefits were discussed. (units unknown) (unknown) (unknown) (no date) (unknown) (unknown) Patient's pain has been present for >6 weeks and is an average of >6/10 on 0-10 (units unknown) (unknown) (unknown) (no date) (unknown) (unknown) Patient: Kishor Carrasquillo MR#: [id number] (units unknown) (unknown) (unknown) (no date) (unknown) (unknown) Pertinent medi cations include: (units unknown) (unknown) (unknown) (no date) (unknown) (unknown) Plan (units unknown) (unknown) (unknown) (no date) (unknown) (unknown) Plan/Recommendations : (units unknown) (unknown) (unknown) (no date) (unknown) (unknown) Position Sitting (un its unknown) (unknown) (unknown) (no date) (unknown) (unknown) Prescriptions Written: [] (units unknown) (unknown) (unknown) (no date) (unknown) (unknown) Previous pain treatments included: (units unknown) (unknown) (unknown) (no date) (unknown) (unknown) Psych: Appropr iate affect, answers questions appropriately (units unknown) (unknown) (unknown) (no date) (unknown) (unknown) Pulse 80 (units unknown) (unknown) (unknown) (no date) (unknown) (unknown) Pulse Oximetry (%) 9 7 (units unknown) (unknown) (unknown) (no date) (unknown) (unknown) Pulse Source Monitor (units unknown) (unknown) (unknown) (no date) (unknown) (unknown) Quality and ti gerri of pain: (units unknown) (unknown) (unknown) (no date) (unknown) (unknown) ROS Narrative (units unknown) (unknown) (unknown) (no date) (unknown) (unknown) ROS Narrative: (unit s unknown) (unknown) (unknown) (no date) (unknown) (unknown) ROS (units unknown) (unknown) (unknown) (no date) (unknown) (unknown) Reason For Visit (un its unknown) (unknown) (unknown) (no date) (unknown) (unknown) Red flag symptoms: ( units unknown) (unknown) (unknown) (no date) (unknown) (unknown) Reflex Right Left (u nits unknown) (unknown) (unknown) (no date) (unknown) (unknown) Reflexes: (units unknown) (unknown) (unknown) (no date) (unknown) (unknown) Relieving fact ors include: (units unknown) (unknown) (unknown) (no date) (unknown) (unknown) Respiratory: Non-labored breathing pattern on RA. No respiratory distress (units unknown) (unknown) (unknown) (no date) (unknown) (unknown) S1 Achilles 2+ 2 (un its unknown) (unknown) (unknown) (no date) (unknown) (unknown) S1 Ankle Plantarflexion 5/5 5/5 (units unknown) (unknown) (unknown) (no date) (unknown) (unknown) S1 appears (units unknown) (unknown) (unknown) (no date) (unknown) (unknown) Saddle anesthe marina: denies (units unknown) (unknown) (unknown) (no date) (unknown) (unknown) Segment Action Right Left (units unknown) (unknown) (unknown) (no date) (unknown) (unknown) Segment Reflex Right Left (units unknown) (unknown) (unknown) (no date) (unknown) (unknown) Sensory -? Int act to light touch of bilateral lower extremities. Allodynia (units unknown) (unknown) (unknown) (no date) (unknown) (unknown) Signed By: (units unknown) (unknown) (unknown) (no date) (unknown) (unknown) Skin: No appre ciable rashes or skin breakdown (units unknown) (unknown) (unknown) (no date) (unknown) (unknown) Smoking Status : Never smoker (units unknown) (unknown) (unknown) (no date) (unknown) (unknown) Soft tissues:? Overlying bowel gas pattern is normal.? No suspicious soft tissue (units unknown) (unknown) (unknown) (no date) (unknown) (unknown) Spinal Cord:? Conus medullaris terminates at the L1 level.? Visualized cord (units unknown) (unknown) (unknown) (no date) (unknown) (unknown) Standing: (units unknown) (unknown) (unknown) (no date) (unknown) (unknown) Surgery: Patie nt is s/p L3-S1 posterior instrumented fusion (units unknown) (unknown) (unknown) (no date) (unknown) (unknown) T12 compressio n fracture is unchanged. (units unknown) (unknown) (unknown) (no date) (unknown) (unknown) T12-L1:? Disc space is preserved.? No central or foraminal stenosis. (units unknown) (unknown) (unknown) (no date) (unknown) (unknown) TECHNIQUE:? 2 views of the lumbar spine were acquired.? (units unknown) (unknown) (unknown) (no date) (unknown) (unknown) TECHNIQUE:? (units unknown) (unknown) (unknown) (no date) (unknown) (unknown) Temp 98 F (units unknown) (unknown) (unknown) (no date) (unknown) (unknown) Temp Source Te mporal Artery Scan (units unknown) (unknown) (unknown) (no date) (unknown) (unknown) [facility] (units unknown) (unknown) (unknown) (no date) (unknown) (unknown) This note may have been all or partially generated using voice recognition (units unknown) (unknown) (unknown) (no date) (unknown) (unknown) Tobacco + Subs tance Use (units unknown) (unknown) (unknown) (no date) (unknown) (unknown) Tobacco Status (unit s unknown) (unknown) (unknown) (no date) (unknown) (unknown) Today I have r eviewed available medical information in the patient's medical (units unknown) (unknown) (unknown) (no date) (unknown) (unknown) Upper Motor Ne uron Signs: (units unknown) (unknown) (unknown) (no date) (unknown) (unknown) 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 (units unknown) (unknown) (unknown) (no date) (unknown) (unknown) We reviewed et iology, predisposing factor(s), natural course, imaging results as (units unknown) (unknown) (unknown) (no date) (unknown) (unknown) Weakness: denies (un its unknown) (unknown) (unknown) (no date) (unknown) (unknown) Weight 251 lb 4 oz ( units unknown) (unknown) (unknown) (no date) (unknown) (unknown) [Rx] (units unknown) (unknown) (unknown) (no date) (unknown) (unknown) benefits of va rious treatment options were discussed with the patient in great (units unknown) (unknown) (unknown) (no date) (unknown) (unknown) bilateral fora solo stenosis (units unknown) (unknown) (unknown) (no date) (unknown) (unknown) bowel/bladder dysfunction, and perineal numbness were discussed. The patient was (units unknown) (unknown) (unknown) (no date) (unknown) (unknown) calcifications.? (un its unknown) (unknown) (unknown) (no date) (unknown) (unknown) cannot tolerat e physical therapy at the current time due to the intensity of the (units unknown) (unknown) (unknown) (no date) (unknown) (unknown) central stenosis. (u nits unknown) (unknown) (unknown) (no date) (unknown) (unknown) central stenos is.? Hypertrophic facet joints contribute to moderate bilateral (units unknown) (unknown) (unknown) (no date) (unknown) (unknown) change from (units unknown) (unknown) (unknown) (no date) (unknown) (unknown) claudication w ho presents for further evaluation of [CC]. (units unknown) (unknown) (unknown) (no date) (unknown) (unknown) compression fr acture, S1 radiculopathy, lumbar spinal stenosis with neurogenic (units unknown) (unknown) (unknown) (no date) (unknown) (unknown) demonstrates (units unknown) (unknown) (unknown) (no date) (unknown) (unknown) detail. (units unknown) (unknown) (unknown) (no date) (unknown) (unknown) duloxetine 60 mg capsule,delayed release 60 mg PO DAILY 06/14/22 [History (units unknown) (unknown) (unknown) (no date) (unknown) (unknown) foraminal (units unknown) (unknown) (unknown) (no date) (unknown) (unknown) from prior exam (uni ts unknown) (unknown) (unknown) (no date) (unknown) (unknown) have occurred. If there are any questions, please contact the Medical Records (units unknown) (unknown) (unknown) (no date) (unknown) (unknown) improved sleep , improved mobility, etc. (units unknown) (unknown) (unknown) (no date) (unknown) (unknown) in PT. [] (units unknown) (unknown) (unknown) (no date) (unknown) (unknown) in his lower extremities. He was also referred to a spine surgeon who stated (units unknown) (unknown) (unknown) (no date) (unknown) (unknown) instructed to report to the Emergency department, if these symptoms occur. (units unknown) (unknown) (unknown) (no date) (unknown) (unknown) instructed to stop if any side effects. [] (units unknown) (unknown) (unknown) (no date) (unknown) (unknown) instrumentatio n, stable (units unknown) (unknown) (unknown) (no date) (unknown) (unknown) intravenous dr ug use, sustained glucocorticoid use, osteoporosis, or a focal (units unknown) (unknown) (unknown) (no date) (unknown) (unknown) lidocaine 5 % topical patch (Lidoderm) 1 patch topical DAILY #30 ea 06/07/22 (units unknown) (unknown) (unknown) (no date) (unknown) (unknown) local anesthet ic. During that time patient able to participate in ADLs, had (units unknown) (unknown) (unknown) (no date) (unknown) (unknown) lumbar spine operations including posterior instrumented fusion at L3-S1, T12 (units unknown) (unknown) (unknown) (no date) (unknown) (unknown) may be performed.? ( units unknown) (unknown) (unknown) (no date) (unknown) (unknown) may occur. Occ asional wrong-word or 'sound-alike' substitutions may have (units unknown) (unknown) (unknown) (no date) (unknown) (unknown) meds. [] (units unknown) (unknown) (unknown) (no date) (unknown) (unknown) methocarbamol 750 mg tablet 750 mg PO Q8H PRN muscle pain #30 tabs 06/07/22 [Rx] (units unknown) (unknown) (unknown) (no date) (unknown) (unknown) milk Allergy ( Mild, Verified 06/14/22 10:52) (units unknown) (unknown) (unknown) (no date) (unknown) (unknown) negative, Hype ralgesia - negative (units unknown) (unknown) (unknown) (no date) (unknown) (unknown) neurological d eficit with progressive or disabling symptoms. (units unknown) (unknown) (unknown) (no date) (unknown) (unknown) normal signal and size.? (units unknown) (unknown) (unknown) (no date) (unknown) (unknown) occurred due t o the inherent limitations of voice recognition software. Please (units unknown) (unknown) (unknown) (no date) (unknown) (unknown) of Spinal Cord Injur y) (units unknown) (unknown) (unknown) (no date) (unknown) (unknown) omeprazole 20 mg capsule,delayed release 20 mg PO DAILY 06/14/22 [History (units unknown) (unknown) (unknown) (no date) (unknown) (unknown) or immunosuppr essive therapy, previous or current cancer diagnosis, history of (units unknown) (unknown) (unknown) (no date) (unknown) (unknown) pain. [] (units unknown) (unknown) (unknown) (no date) (unknown) (unknown) pregabalin 200 mg capsule 200 mg PO TID 06/14/22 [History Confirmed 06/14/22] (units unknown) (unknown) (unknown) (no date) (unknown) (unknown) read the note carefully and recognize, using context, where these substitutions (units unknown) (unknown) (unknown) (no date) (unknown) (unknown) record, includ ing relevant provider notes, laboratory work, and imaging. (units unknown) (unknown) (unknown) (no date) (unknown) (unknown) jules and (units unknown) (unknown) (unknown) (no date) (unknown) (unknown) scale and/or p ain interferes with ADLs. 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 (units unknown) (unknown) (unknown) (no date) (unknown) (unknown) severe (units unknown) (unknown) (unknown) (no date) (unknown) (unknown) software. Alth ough every effort is made to edit content, manager inside errors (units unknown) (unknown) (unknown) (no date) (unknown) (unknown) spin echo (units unknown) (unknown) (unknown) (no date) (unknown) (unknown) stability intact.] ( units unknown) (unknown) (unknown) (no date) (unknown) (unknown) stable.? 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 T12 compression fracture, (units unknown) (unknown) (unknown) (no date) (unknown) (unknown) stenosis (units unknown) (unknown) (unknown) (no date) (unknown) (unknown) stenosis.? Mild (uni ts unknown) (unknown) (unknown) (no date) (unknown) (unknown) stenosis.? (units unknown) (unknown) (unknown) (no date) (unknown) (unknown) that he may be a candidate for decompression fusion at L2-3 but recommended (units unknown) (unknown) (unknown) (no date) (unknown) (unknown) the prior exam .? No retropulsed fracture fragment. (units unknown) (unknown) (unknown) (no date) (unknown) (unknown) therapeutic in jections and surgery. The risks, consequences, alternatives and (units unknown) (unknown) (unknown) (no date) (unknown) (unknown) therapy. ?A re ferral was provided for the patient. [] (units unknown) (unknown) (unknown) (no date) (unknown) (unknown) through the [facility] spine.? In cases with scoliosis, additional coronal T2 fast (units unknown) (unknown) (unknown) (no date) (unknown) (unknown) to severe (units unknown) (unknown) (unknown) (no date) (unknown) (unknown) transforaminal MARI as were recommended by Dr. Blair but not performed.... (units unknown) (unknown) (unknown) (no date) (unknown) (unknown) transforaminal MARI. He was referred to Neurology for electrodiagnostic studies (units unknown) (unknown) (unknown) (no date) (unknown) (unknown) trial of lumba r epidural steroid injection at L2-3. Bilateral L2-3 (units unknown) (unknown) (unknown) (no date) (unknown) (unknown) unchanged.? (units unknown) (unknown) (unknown) (no date) (unknown) (unknown) walking intact . Tandem gait normal without evidence of ataxia. Lower quarter (units unknown) (unknown) (unknown) (no date) (unknown) (unknown) well as treatm ent options including medications, physical therapy/exercise, (units unknown) (unknown) (unknown) (no date) (unknown) (unknown) with future tr eatment planning. [] (units unknown) (unknown) Result panel 22 (unknown) (no date) (unknown) (unknown) (no value) (units unknown) (unknown) (unknown) (no date) (unknown) (unknown) (0=absent, 1=s light response, 2=brisk/normal, 3=very brisk, 4=clonus) (units unknown) (unknown) (unknown) (no date) (unknown) (unknown) (segments are from the International Standards for Neurological Classification (units unknown) (unknown) (unknown) (no date) (unknown) (unknown) - Activity: Co ntinue activity as tolerated. [] (units unknown) (unknown) (unknown) (no date) (unknown) (unknown) - Chiropractor , acupuncture[] (units unknown) (unknown) (unknown) (no date) (unknown) (unknown) - Continues cl inician directed home exercise program including exercises learned (units unknown) (unknown) (unknown) (no date) (unknown) (unknown) - Education: C auda equina and associated symptoms, including motor weakness, (units unknown) (unknown) (unknown) (no date) (unknown) (unknown) - FADIR: [(-/+ ) on the R side / L side / bilaterally] (units unknown) (unknown) (unknown) (no date) (unknown) (unknown) - Follow-up: [] (uni ts unknown) (unknown) (unknown) (no date) (unknown) (unknown) - Hip ROM is: [WNL / limited and painful on the R sided / L side / bilaterally] (units unknown) (unknown) (unknown) (no date) (unknown) (unknown) - I discussed risks, benefits and side effects. Additionally, patient was (units unknown) (unknown) (unknown) (no date) (unknown) (unknown) - Imaging: No new imaging indicated at this time. [] (units unknown) (unknown) (unknown) (no date) (unknown) (unknown) - Interventional/Surgica l procedures: None indicated at this time. [] (units unknown) (unknown) (unknown) (no date) (unknown) (unknown) - Lumbar facet loading: [(-/+) on the R side / L side / bilaterally] (units unknown) (unknown) (unknown) (no date) (unknown) (unknown) - Medications: No new prescription at this time. Patient will continue current (units unknown) (unknown) (unknown) (no date) (unknown) (unknown) - Medications: acetaminophen, NSAIDS, neuropathics, muscle relaxants [] (units unknown) (unknown) (unknown) (no date) (unknown) (unknown) - Physical The rapy: Completed 6 week course in the last 6 months OR Patient (units unknown) (unknown) (unknown) (no date) (unknown) (unknown) - Physical therapy/modalities/DME : Patient will likely benefit from physical (units unknown) (unknown) (unknown) (no date) (unknown) (unknown) - Prescription provided and uptitration instructions given if necessary. [] (units unknown) (unknown) (unknown) (no date) (unknown) (unknown) - Previous [] on [] provided []% relief of pain for the expected duration of the (units unknown) (unknown) (unknown) (no date) (unknown) (unknown) - Referrals: N one indicated at this time. [] (units unknown) (unknown) (unknown) (no date) (unknown) (unknown) - SIJ provocat ion testing: [ (+/-) Iris's finger test, posterior thrust, (units unknown) (unknown) (unknown) (no date) (unknown) (unknown) - Straight Leg Raise: [(-/+) on the L side / R side / bilaterally] (units unknown) (unknown) (unknown) (no date) (unknown) (unknown) -to-moderate b ilateral foraminal stenosis (units unknown) (unknown) (unknown) (no date) (unknown) (unknown) 06/14/22 (units unknown) (unknown) (unknown) (no date) (unknown) (unknown) 0RF pain (units unknown) (unknown) (unknown) (no date) (unknown) (unknown) 10:53 (units unknown) (unknown) (unknown) (no date) (unknown) (unknown) 21 ea 0RF (units unknown) (unknown) (unknown) (no date) (unknown) (unknown) 05/22/2021, 2:31.? (u nits unknown) (unknown) (unknown) (no date) (unknown) (unknown) 990 (units unknown) (unknown) (unknown) (no date) (unknown) (unknown) ? Inspection - ? No gross appendicular or axial deformities (units unknown) (unknown) (unknown) (no date) (unknown) (unknown) ? Palpation -? [Tender to palpation of / No tenderness to palpation] (units unknown) (unknown) (unknown) (no date) (unknown) (unknown) ? ROM - [Lumba r flexion/ extension/ lateral rotation is limited due to pain / (units unknown) (unknown) (unknown) (no date) (unknown) (unknown) ? Special tests (uni ts unknown) (unknown) (unknown) (no date) (unknown) (unknown) ? (units unknown) (unknown) (unknown) (no date) (unknown) (unknown) ? Acetaminophen (units unknown) (unknown) (unknown) (no date) (unknown) (unknown) ? Antidepressants (units unknown) (unknown) (unknown) (no date) (unknown) (unknown) ? Antiepileptics (units unknown) (unknown) (unknown) (no date) (unknown) (unknown) ? Mu scle Relaxants (units unknown) (unknown) (unknown) (no date) (unknown) (unknown) ? NSAIDs ( units unknown) (unknown) (unknown) (no date) (unknown) (unknown) ? Opioids (units unknown) (unknown) (unknown) (no date) (unknown) (unknown) ? Steroids (units unknown) (unknown) (unknown) (no date) (unknown) (unknown) ? Topicals (units unknown) (unknown) (unknown) (no date) (unknown) (unknown) Accompanied by : PARTNER: PADMA (units unknown) (unknown) (unknown) (no date) (unknown) (unknown) Age/Sex: 47 / M Date of Service: (units unknown) (unknown) (unknown) (no date) (unknown) (unknown) Aggravating fa ctors include: (units unknown) (unknown) (unknown) (no date) (unknown) (unknown) Alignment and Curvature:? There is normal bony alignment.? (units unknown) (unknown) (unknown) (no date) (unknown) (unknown) All other syst ems reviewed and are unremarkable except as noted in HPI. (units unknown) (unknown) (unknown) (no date) (unknown) (unknown) Allergies (units unknown) (unknown) (unknown) (no date) (unknown) (unknown) [place] [address] (units unknown) (unknown) (unknown) (no date) (unknown) (unknown) Approved by: Vale Aden M.D. on 06/07/2022 at 14:37? (units unknown) (unknown) (unknown) (no date) (unknown) (unknown) Approved by: Fercho Khan M.D. on 06/04/2022 at 21:57 ? (units unknown) (unknown) (unknown) (no date) (unknown) (unknown) Assessment + Plan (u nits unknown) (unknown) (unknown) (no date) (unknown) (unknown) Assessment: (units unknown) (unknown) (unknown) (no date) (unknown) (unknown) Attending Dr: Dhiraj Daigle MD (units unknown) (unknown) (unknown) (no date) (unknown) (unknown) B/L S1 TFESI ( Dr. Blair) 05/26/2021 Improved pain for 1 month (units unknown) (unknown) (unknown) (no date) (unknown) (unknown) BMI 34.0 (units unknown) (unknown) (unknown) (no date) (unknown) (unknown) BP 120/70 (units unknown) (unknown) (unknown) (no date) (unknown) (unknown) Babinski's Radha ngoing Downgoing (units unknown) (unknown) (unknown) (no date) (unknown) (unknown) Blood Pressure Location Rt brachial (units unknown) (unknown) (unknown) (no date) (unknown) (unknown) Bone Marrow:? Wedge-shaped compression fracture T12 without marrow edema or (units unknown) (unknown) (unknown) (no date) (unknown) (unknown) Bones:? 5 [id number] vertebrae are present.? Pedicle screw fixation at L3 (units unknown) (unknown) (unknown) (no date) (unknown) (unknown) Bowel and blad kael: No loss of control (units unknown) (unknown) (unknown) (no date) (unknown) (unknown) COMPARISON:? I [facility], MR, MR LUMBAR SPINE WO CON, 03/09/2022, 20:09. (units unknown) (unknown) (unknown) (no date) (unknown) (unknown) COMPARISON:? S Located within [facility], CR, XR LUMBAR SPINE 2 OR 3 VIEWS, (units unknown) (unknown) (unknown) (no date) (unknown) (unknown) CONSULT TO DIS CUSS LOW BACK PAIN (units unknown) (unknown) (unknown) (no date) (unknown) (unknown) Cardiovascular : No edema or cyanosis. 2+ peripheral pulses (units unknown) (unknown) (unknown) (no date) (unknown) (unknown) Caudal (units unknown) (unknown) (unknown) (no date) (unknown) (unknown) Chart review: (units unknown) (unknown) (unknown) (no date) (unknown) (unknown) Chief Complaint (uni ts unknown) (unknown) (unknown) (no date) (unknown) (unknown) Chief Complain t: Low back and leg pain (units unknown) (unknown) (unknown) (no date) (unknown) (unknown) Chronic T12 compression fracture without retropulsed fracture fragment (units unknown) (unknown) (unknown) (no date) (unknown) (unknown) Clonus None None (un its unknown) (unknown) (unknown) (no date) (unknown) (unknown) Confirmed 06/14/22] (units unknown) (unknown) (unknown) (no date) (unknown) (unknown) Conservative management includes: (units unknown) (unknown) (unknown) (no date) (unknown) (unknown) Continue [facility] therapy. [] (units unknown) (unknown) (unknown) (no date) (unknown) (unknown) Continue home exercise program. 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 (units unknown) (unknown) (unknown) (no date) (unknown) (unknown) Details: (units unknown) (unknown) (unknown) (no date) (unknown) (unknown) Dictated by: Fercho Khan M.D. on 06/04/2022 at 21:55 ? ? (units unknown) (unknown) (unknown) (no date) (unknown) (unknown) Discontinued R yuni: Patient no longer taking 1 tab PO Q4-6H PRN 10 tabs (units unknown) (unknown) (unknown) (no date) (unknown) (unknown) Discontinued R yuni: Patient no longer taking 1 tab PO Q4-6H PRN 20 tabs (units unknown) (unknown) (unknown) (no date) (unknown) (unknown) Discontinued R yuni: Patient no longer taking 1 tab PO Q6H PRN 14 tabs 0RF (units unknown) (unknown) (unknown) (no date) (unknown) (unknown) Discontinued R yuni: Patient no longer taking 20 mg PO TID 21 tabs 0RF (units unknown) (unknown) (unknown) (no date) (unknown) (unknown) Discontinued R yuni: Patient no longer taking orally per package directions (units unknown) (unknown) (unknown) (no date) (unknown) (unknown) Discontinued R yuni: Provider's Order 5 mg PO Q6H PRN 14 tabs 0RF pain (units unknown) (unknown) (unknown) (no date) (unknown) (unknown) Discontinued (units unknown) (unknown) (unknown) (no date) (unknown) (unknown) Documented By: Dhiraj Daigle MD 06/13/22 1523 (units unknown) (unknown) (unknown) (no date) (unknown) (unknown) Draft (units unknown) (unknown) (unknown) (no date) (unknown) (unknown) Duloxetine 60 mg (un its unknown) (unknown) (unknown) (no date) (unknown) (unknown) Exam Narrative (unit s unknown) (unknown) (unknown) (no date) (unknown) (unknown) Exam Narrative: (uni ts unknown) (unknown) (unknown) (no date) (unknown) (unknown) Exam (units unknown) (unknown) (unknown) (no date) (unknown) (unknown) Mo DAVIDSON's, Pelvic rocking on the R/L side / bilaterally] (units unknown) (unknown) (unknown) (no date) (unknown) (unknown) FINDINGS:? (units unknown) (unknown) (unknown) (no date) (unknown) (unknown) Gait/Station - [Non-antalgic gait. Heel (L5 strength) and toe (S1 strength) (units unknown) (unknown) (unknown) (no date) (unknown) (unknown) General: Well-nourished, well-developed, [sex] in no acute distress (units unknown) (unknown) (unknown) (no date) (unknown) (unknown) HPI (units unknown) (unknown) (unknown) (no date) (unknown) (unknown) He has been fo llowed by Dr. Blair at [facility]. He had bilateral S1 (units unknown) (unknown) (unknown) (no date) (unknown) (unknown) He reports fal l approx 3 weeks ago due to a slip. He had increased pain from (units unknown) (unknown) (unknown) (no date) (unknown) (unknown) He was not adm itted. He has a drop foot on the left. (units unknown) (unknown) (unknown) (no date) (unknown) (unknown) Height 6 ft (units unknown) (unknown) (unknown) (no date) (unknown) (unknown) IMPRESSION:? (units unknown) (unknown) (unknown) (no date) (unknown) (unknown) INDICATIONS:? New lower extremity weakness, pain exacerbation after twist (units unknown) (unknown) (unknown) (no date) (unknown) (unknown) INDICATIONS:? hx of multiple back surgeries with pain after fall (units unknown) (unknown) (unknown) (no date) (unknown) (unknown) Image quality: ? Excellent.? (units unknown) (unknown) (unknown) (no date) (unknown) (unknown) Injections: (units unknown) (unknown) (unknown) (no date) (unknown) (unknown) Intake Clinical Staf f (units unknown) (unknown) (unknown) (no date) (unknown) (unknown) Intake Note: (units unknown) (unknown) (unknown) (no date) (unknown) (unknown) Intake perform ed by: Paola Whitfield (units unknown) (unknown) (unknown) (no date) (unknown) (unknown) Intake (units unknown) (unknown) (unknown) (no date) (unknown) (unknown) Intervention: Date: Outcome: (units unknown) (unknown) (unknown) (no date) (unknown) (unknown) Is patient in pain?: Yes Pain scale (1-10): 8 (units unknown) (unknown) (unknown) (no date) (unknown) (unknown) Alyce loving, MR, MR LUMBAR SPINE WO CON, 03/09/2022, 20:09. (units unknown) (unknown) (unknown) (no date) (unknown) (unknown) JUSTIFICATION OF MEDICAL NECESSITY (units unknown) (unknown) (unknown) (no date) (unknown) (unknown) Kishor is a 47-y ear-old male with a history of chronic low back pain status post 3 (units unknown) (unknown) (unknown) (no date) (unknown) (unknown) L-spine/T-spin e/C-spin e MRI ordered to better delineate the anatomy and help (units unknown) (unknown) (unknown) (no date) (unknown) (unknown) L1-L2:? Disc s pace is preserved.? No central or foraminal stenosis (units unknown) (unknown) (unknown) (no date) (unknown) (unknown) L2 Hip Flexion 5/5 5/5? (units unknown) (unknown) (unknown) (no date) (unknown) (unknown) L2-L3:? Disc s pace narrowing and circumferential disc bulge results in moderate (units unknown) (unknown) (unknown) (no date) (unknown) (unknown) L3 Knee Extens ion 5/5 5/5 (units unknown) (unknown) (unknown) (no date) (unknown) (unknown) L3, L4 and L5 decompressive laminectomies with interbody fusion and posterior (units unknown) (unknown) (unknown) (no date) (unknown) (unknown) L3-L4:? Discec madonna and fusion with posterior decompression.? No central (units unknown) (unknown) (unknown) (no date) (unknown) (unknown) L4 Ankle Dorsi flexion 5/5 5/5 (units unknown) (unknown) (unknown) (no date) (unknown) (unknown) L4 Patella 2+ 2 (uni ts unknown) (unknown) (unknown) (no date) (unknown) (unknown) L4-L5:? Discec madonna and fusion with posterior decompression.? No central (units unknown) (unknown) (unknown) (no date) (unknown) (unknown) L5 Long Toe Ex tension 5/5 5/5 (units unknown) (unknown) (unknown) (no date) (unknown) (unknown) L5-S1:? Discec madonna and fusion with posterior decompression.? No central (units unknown) (unknown) (unknown) (no date) (unknown) (unknown) Lidoderm patch (unit s unknown) (unknown) (unknown) (no date) (unknown) (unknown) Loc: PAIN (units unknown) (unknown) (unknown) (no date) (unknown) (unknown) Lower lumbar s pine interbody fusion, posterior decompression and (units unknown) (unknown) (unknown) (no date) (unknown) (unknown) Lumbar spine f ixation appears stable. (units unknown) (unknown) (unknown) (no date) (unknown) (unknown) Lyrica 200 mg b.i.d. (units unknown) (unknown) (unknown) (no date) (unknown) (unknown) MSK: System re viewed and no additional complaints, except as documented. (units unknown) (unknown) (unknown) (no date) (unknown) (unknown) Medications (units unknown) (unknown) (unknown) (no date) (unknown) (unknown) Medications: (units unknown) (unknown) (unknown) (no date) (unknown) (unknown) Moderate left and right foraminal stenosis (units unknown) (unknown) (unknown) (no date) (unknown) (unknown) Motor (units unknown) (unknown) (unknown) (no date) (unknown) (unknown) Musculoskeletal: (un its unknown) (unknown) (unknown) (no date) (unknown) (unknown) Neuro: System reviewed and no additional complaints, except as documented. (units unknown) (unknown) (unknown) (no date) (unknown) (unknown) Neurologic: (units unknown) (unknown) (unknown) (no date) (unknown) (unknown) New (units unknown) (unknown) (unknown) (no date) (unknown) (unknown) No suspicious bony lesions.? (units unknown) (unknown) (unknown) (no date) (unknown) (unknown) Noncontrast sa gittal T1 spin echo and T2 fast echo, sagittal STIR, and T2 fast (units unknown) (unknown) (unknown) (no date) (unknown) (unknown) Not indicated at this time. [] (units unknown) (unknown) (unknown) (no date) (unknown) (unknown) Numbness/Tingling: ( units unknown) (unknown) (unknown) (no date) (unknown) (unknown) Objective Data (unit s unknown) (unknown) (unknown) (no date) (unknown) (unknown) Objective Data: (uni ts unknown) (unknown) (unknown) (no date) (unknown) (unknown) Onset/Context of parish n: (units unknown) (unknown) (unknown) (no date) (unknown) (unknown) Onset: (units unknown) (unknown) (unknown) (no date) (unknown) (unknown) Other: Psychology/Acupuncture /care associate (units unknown) (unknown) (unknown) (no date) (unknown) (unknown) Oxygen Deliver y Method room air (units unknown) (unknown) (unknown) (no date) (unknown) (unknown) PFSH (units unknown) (unknown) (unknown) (no date) (unknown) (unknown) PROCEDURE:? MR LUMBAR SPINE WO CON (units unknown) (unknown) (unknown) (no date) (unknown) (unknown) PROCEDURE:? XR LUMBAR SPINE 2-3V (units unknown) (unknown) (unknown) (no date) (unknown) (unknown) PT: Last PT wa s on []. [He/she] has attended for [sessions] (units unknown) (unknown) (unknown) (no date) (unknown) (unknown) Pain Scale (units unknown) (unknown) (unknown) (no date) (unknown) (unknown) Pain Visit (units unknown) (unknown) (unknown) (no date) (unknown) (unknown) Pain location/Radiation: (units unknown) (unknown) (unknown) (no date) (unknown) (unknown) Pain rating: / 10 today, /10 at worst (units unknown) (unknown) (unknown) (no date) (unknown) (unknown) Paraspinous So ft Tissues:? No paravertebral masses.? (units unknown) (unknown) (unknown) (no date) (unknown) (unknown) Patient will r eturn for []. Risks and benefits were discussed. (units unknown) (unknown) (unknown) (no date) (unknown) (unknown) Patient's pain has been present for >6 weeks and is an average of >6/10 on 0-10 (units unknown) (unknown) (unknown) (no date) (unknown) (unknown) Patient: Kishor Carrasquillo MR#: [id number] (units unknown) (unknown) (unknown) (no date) (unknown) (unknown) Pertinent medi cations include: (units unknown) (unknown) (unknown) (no date) (unknown) (unknown) Plan (units unknown) (unknown) (unknown) (no date) (unknown) (unknown) Plan/Recommendations : (units unknown) (unknown) (unknown) (no date) (unknown) (unknown) Position Sitting (un its unknown) (unknown) (unknown) (no date) (unknown) (unknown) Prescriptions Written: [] (units unknown) (unknown) (unknown) (no date) (unknown) (unknown) Previous pain treatments included: (units unknown) (unknown) (unknown) (no date) (unknown) (unknown) Psych: Appropr iate affect, answers questions appropriately (units unknown) (unknown) (unknown) (no date) (unknown) (unknown) Pulse 80 (units unknown) (unknown) (unknown) (no date) (unknown) (unknown) Pulse Oximetry (%) 9 7 (units unknown) (unknown) (unknown) (no date) (unknown) (unknown) Pulse Source Monitor (units unknown) (unknown) (unknown) (no date) (unknown) (unknown) Quality and ti gerri of pain: (units unknown) (unknown) (unknown) (no date) (unknown) (unknown) ROS Narrative (units unknown) (unknown) (unknown) (no date) (unknown) (unknown) ROS Narrative: (unit s unknown) (unknown) (unknown) (no date) (unknown) (unknown) ROS (units unknown) (unknown) (unknown) (no date) (unknown) (unknown) Reason For Visit (un its unknown) (unknown) (unknown) (no date) (unknown) (unknown) Red flag symptoms: ( units unknown) (unknown) (unknown) (no date) (unknown) (unknown) Reflex Right Left (u nits unknown) (unknown) (unknown) (no date) (unknown) (unknown) Reflexes: (units unknown) (unknown) (unknown) (no date) (unknown) (unknown) Relieving fact ors include: (units unknown) (unknown) (unknown) (no date) (unknown) (unknown) Respiratory: Non-labored breathing pattern on RA. No respiratory distress (units unknown) (unknown) (unknown) (no date) (unknown) (unknown) Robaxin 750 mg (unit s unknown) (unknown) (unknown) (no date) (unknown) (unknown) S1 Achilles 2+ 2 (un its unknown) (unknown) (unknown) (no date) (unknown) (unknown) S1 Ankle Plantarflexion 5/5 5/5 (units unknown) (unknown) (unknown) (no date) (unknown) (unknown) S1 appears (units unknown) (unknown) (unknown) (no date) (unknown) (unknown) Saddle anesthe marina: denies (units unknown) (unknown) (unknown) (no date) (unknown) (unknown) Segment Action Right Left (units unknown) (unknown) (unknown) (no date) (unknown) (unknown) Segment Reflex Right Left (units unknown) (unknown) (unknown) (no date) (unknown) (unknown) Sensory -? Int act to light touch of bilateral lower extremities. Allodynia (units unknown) (unknown) (unknown) (no date) (unknown) (unknown) Signed By: (units unknown) (unknown) (unknown) (no date) (unknown) (unknown) Skin: No appre ciable rashes or skin breakdown (units unknown) (unknown) (unknown) (no date) (unknown) (unknown) Smoking Status : Never smoker (units unknown) (unknown) (unknown) (no date) (unknown) (unknown) Soft tissues:? Overlying bowel gas pattern is normal.? No suspicious soft tissue (units unknown) (unknown) (unknown) (no date) (unknown) (unknown) Spinal Cord:? Conus medullaris terminates at the L1 level.? Visualized cord (units unknown) (unknown) (unknown) (no date) (unknown) (unknown) Standing: (units unknown) (unknown) (unknown) (no date) (unknown) (unknown) Surgery: Annmarie nt is s/p L3-S1 posterior instrumented fusion in 2012 (units unknown) (unknown) (unknown) (no date) (unknown) (unknown) T12 compressio n fracture is unchanged. (units unknown) (unknown) (unknown) (no date) (unknown) (unknown) T12-L1:? Disc space is preserved.? No central or foraminal stenosis. (units unknown) (unknown) (unknown) (no date) (unknown) (unknown) TECHNIQUE:? 2 views of the lumbar spine were acquired.? (units unknown) (unknown) (unknown) (no date) (unknown) (unknown) TECHNIQUE:? (units unknown) (unknown) (unknown) (no date) (unknown) (unknown) Temp 98 F (units unknown) (unknown) (unknown) (no date) (unknown) (unknown) Temp Source Te mporal Artery Scan (units unknown) (unknown) (unknown) (no date) (unknown) (unknown) [facility] (units unknown) (unknown) (unknown) (no date) (unknown) (unknown) This note may have been all or partially generated using voice recognition (units unknown) (unknown) (unknown) (no date) (unknown) (unknown) Tobacco + Subs tance Use (units unknown) (unknown) (unknown) (no date) (unknown) (unknown) Tobacco Status (unit s unknown) (unknown) (unknown) (no date) (unknown) (unknown) Today I have r eviewed available medical information in the patient's medical (units unknown) (unknown) (unknown) (no date) (unknown) (unknown) Upper Motor Ne uron Signs: (units unknown) (unknown) (unknown) (no date) (unknown) (unknown) 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 (units unknown) (unknown) (unknown) (no date) (unknown) (unknown) We reviewed et iology, predisposing factor(s), natural course, imaging results as (units unknown) (unknown) (unknown) (no date) (unknown) (unknown) Weakness: denies (un its unknown) (unknown) (unknown) (no date) (unknown) (unknown) Weight 251 lb 4 oz ( units unknown) (unknown) (unknown) (no date) (unknown) (unknown) [Rx] (units unknown) (unknown) (unknown) (no date) (unknown) (unknown) any acute cervantes ge and hardware remained intact. He reports numbness/weakness at (units unknown) (unknown) (unknown) (no date) (unknown) (unknown) baclofen (units unknown) (unknown) (unknown) (no date) (unknown) (unknown) benefits of va rious treatment options were discussed with the patient in great (units unknown) (unknown) (unknown) (no date) (unknown) (unknown) bilateral fora solo stenosis (units unknown) (unknown) (unknown) (no date) (unknown) (unknown) bowel/bladder dysfunction, and perineal numbness were discussed. The patient was (units unknown) (unknown) (unknown) (no date) (unknown) (unknown) calcifications.? (un its unknown) (unknown) (unknown) (no date) (unknown) (unknown) cannot tolerat e physical therapy at the current time due to the intensity of the (units unknown) (unknown) (unknown) (no date) (unknown) (unknown) central stenosis. (u nits unknown) (unknown) (unknown) (no date) (unknown) (unknown) central stenos is.? Hypertrophic facet joints contribute to moderate bilateral (units unknown) (unknown) (unknown) (no date) (unknown) (unknown) change from (units unknown) (unknown) (unknown) (no date) (unknown) (unknown) claudication w ho presents for further evaluation of . (units unknown) (unknown) (unknown) (no date) (unknown) (unknown) compression fr acture, S1 radiculopathy, lumbar spinal stenosis with neurogenic (units unknown) (unknown) (unknown) (no date) (unknown) (unknown) demonstrates (units unknown) (unknown) (unknown) (no date) (unknown) (unknown) detail. (units unknown) (unknown) (unknown) (no date) (unknown) (unknown) duloxetine 60 mg PO DAILY (units unknown) (unknown) (unknown) (no date) (unknown) (unknown) duloxetine 60 mg capsule,delayed release 60 mg PO DAILY 06/14/22 [History (units unknown) (unknown) (unknown) (no date) (unknown) (unknown) foraminal (units unknown) (unknown) (unknown) (no date) (unknown) (unknown) from prior exam (uni ts unknown) (unknown) (unknown) (no date) (unknown) (unknown) have occurred. If there are any questions, please contact the Medical Records (units unknown) (unknown) (unknown) (no date) (unknown) (unknown) hydrocodone-ac etaminop hen 5-325 mg (units unknown) (unknown) (unknown) (no date) (unknown) (unknown) eliecer. He has be en to the ED 3 times recently. MRI was repeated which did not show (units unknown) (unknown) (unknown) (no date) (unknown) (unknown) improved sleep , improved mobility, etc. (units unknown) (unknown) (unknown) (no date) (unknown) (unknown) in PT. [] (units unknown) (unknown) (unknown) (no date) (unknown) (unknown) in his lower extremities. He was also referred to a spine surgeon who stated (units unknown) (unknown) (unknown) (no date) (unknown) (unknown) instructed to report to the Emergency department, if these symptoms occur. (units unknown) (unknown) (unknown) (no date) (unknown) (unknown) instructed to stop if any side effects. [] (units unknown) (unknown) (unknown) (no date) (unknown) (unknown) instrumentatio n, stable (units unknown) (unknown) (unknown) (no date) (unknown) (unknown) intravenous dr ug use, sustained glucocorticoid use, osteoporosis, or a focal (units unknown) (unknown) (unknown) (no date) (unknown) (unknown) lidocaine 5 % topical patch (Lidoderm) 1 patch topical DAILY #30 ea 06/07/22 (units unknown) (unknown) (unknown) (no date) (unknown) (unknown) local anesthet ic. During that time patient able to participate in ADLs, had (units unknown) (unknown) (unknown) (no date) (unknown) (unknown) lumbar spine operations including posterior instrumented fusion at L3-S1, T12 (units unknown) (unknown) (unknown) (no date) (unknown) (unknown) may be performed.? ( units unknown) (unknown) (unknown) (no date) (unknown) (unknown) may occur. Occ asional wrong-word or 'sound-alike' substitutions may have (units unknown) (unknown) (unknown) (no date) (unknown) (unknown) meds. [] (units unknown) (unknown) (unknown) (no date) (unknown) (unknown) methocarbamol 750 mg tablet 750 mg PO Q8H PRN muscle pain #30 tabs 06/07/22 [Rx] (units unknown) (unknown) (unknown) (no date) (unknown) (unknown) methylpredniso lone (Medrol (Adria)) (units unknown) (unknown) (unknown) (no date) (unknown) (unknown) milk Allergy ( Mild, Verified 06/14/22 10:52) (units unknown) (unknown) (unknown) (no date) (unknown) (unknown) negative, Hype ralgesia - negative (units unknown) (unknown) (unknown) (no date) (unknown) (unknown) neurological d eficit with progressive or disabling symptoms. (units unknown) (unknown) (unknown) (no date) (unknown) (unknown) normal signal and size.? (units unknown) (unknown) (unknown) (no date) (unknown) (unknown) occurred due t o the inherent limitations of voice recognition software. Please (units unknown) (unknown) (unknown) (no date) (unknown) (unknown) of Spinal Cord Injur y) (units unknown) (unknown) (unknown) (no date) (unknown) (unknown) omeprazole 20 mg capsule,delayed release 20 mg PO DAILY 06/14/22 [History (units unknown) (unknown) (unknown) (no date) (unknown) (unknown) or immunosuppr essive therapy, previous or current cancer diagnosis, history of (units unknown) (unknown) (unknown) (no date) (unknown) (unknown) oxycodone (units unknown) (unknown) (unknown) (no date) (unknown) (unknown) oxycodone-acet aminophe n 5-325 mg (Endocet) (units unknown) (unknown) (unknown) (no date) (unknown) (unknown) pain (units unknown) (unknown) (unknown) (no date) (unknown) (unknown) pain. [] (units unknown) (unknown) (unknown) (no date) (unknown) (unknown) pregabalin 200 mg capsule 200 mg PO TID 06/14/22 [History Confirmed 06/14/22] (units unknown) (unknown) (unknown) (no date) (unknown) (unknown) read the note carefully and recognize, using context, where these substitutions (units unknown) (unknown) (unknown) (no date) (unknown) (unknown) record, includ ing relevant provider notes, laboratory work, and imaging. (units unknown) (unknown) (unknown) (no date) (unknown) (unknown) jules and (units unknown) (unknown) (unknown) (no date) (unknown) (unknown) scale and/or p ain interferes with ADLs. 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 (units unknown) (unknown) (unknown) (no date) (unknown) (unknown) severe (units unknown) (unknown) (unknown) (no date) (unknown) (unknown) software. Alth ough every effort is made to edit content, manager inside errors (units unknown) (unknown) (unknown) (no date) (unknown) (unknown) spin echo (units unknown) (unknown) (unknown) (no date) (unknown) (unknown) stability intact.] ( units unknown) (unknown) (unknown) (no date) (unknown) (unknown) stable.? 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 T12 compression fracture, (units unknown) (unknown) (unknown) (no date) (unknown) (unknown) stenosis (units unknown) (unknown) (unknown) (no date) (unknown) (unknown) stenosis.? Mild (uni ts unknown) (unknown) (unknown) (no date) (unknown) (unknown) stenosis.? (units unknown) (unknown) (unknown) (no date) (unknown) (unknown) that he may be a candidate for decompression fusion at L2-3 but recommended (units unknown) (unknown) (unknown) (no date) (unknown) (unknown) the prior exam .? No retropulsed fracture fragment. (units unknown) (unknown) (unknown) (no date) (unknown) (unknown) the time and r equired transport. He was back up and walking the following day. (units unknown) (unknown) (unknown) (no date) (unknown) (unknown) therapeutic in jections and surgery. The risks, consequences, alternatives and (units unknown) (unknown) (unknown) (no date) (unknown) (unknown) therapy. ?A re ferral was provided for the patient. [] (units unknown) (unknown) (unknown) (no date) (unknown) (unknown) this. He treat ed with heat/cold and muscle relaxers. The pain worsened over t (units unknown) (unknown) (unknown) (no date) (unknown) (unknown) through the [facility] spine.? In cases with scoliosis, additional coronal T2 fast (units unknown) (unknown) (unknown) (no date) (unknown) (unknown) to severe (units unknown) (unknown) (unknown) (no date) (unknown) (unknown) transforaminal MARI as were recommended by Dr. Blair but not performed.... (units unknown) (unknown) (unknown) (no date) (unknown) (unknown) transforaminal MARI. He was referred to Neurology for electrodiagnostic studies (units unknown) (unknown) (unknown) (no date) (unknown) (unknown) trial of lumba r epidural steroid injection at L2-3. Bilateral L2-3 (units unknown) (unknown) (unknown) (no date) (unknown) (unknown) unchanged.? (units unknown) (unknown) (unknown) (no date) (unknown) (unknown) walking intact . Tandem gait normal without evidence of ataxia. Lower quarter (units unknown) (unknown) (unknown) (no date) (unknown) (unknown) well as treatm ent options including medications, physical therapy/exercise, (units unknown) (unknown) (unknown) (no date) (unknown) (unknown) with future tr eatment planning. [] (units unknown) (unknown) Result panel 23 (unknown) (no date) (unknown) (unknown) (no value) (units unknown) (unknown) (unknown) (no date) (unknown) (unknown) (0=absent, 1=s light response, 2=brisk/normal, 3=very brisk, 4=clonus) (units unknown) (unknown) (unknown) (no date) (unknown) (unknown) (segments are from the International Standards for Neurological Classification (units unknown) (unknown) (unknown) (no date) (unknown) (unknown) - Activity: Co ntinue activity as tolerated. [] (units unknown) (unknown) (unknown) (no date) (unknown) (unknown) - Chiropractor , acupuncture[] (units unknown) (unknown) (unknown) (no date) (unknown) (unknown) - Continues cl inician directed home exercise program including exercises learned (units unknown) (unknown) (unknown) (no date) (unknown) (unknown) - Education: C auda equina and associated symptoms, including motor weakness, (units unknown) (unknown) (unknown) (no date) (unknown) (unknown) - FADIR: [(-/+ ) on the R side / L side / bilaterally] (units unknown) (unknown) (unknown) (no date) (unknown) (unknown) - Follow-up: [] (uni ts unknown) (unknown) (unknown) (no date) (unknown) (unknown) - Hip ROM is: [WNL / limited and painful on the R sided / L side / bilaterally] (units unknown) (unknown) (unknown) (no date) (unknown) (unknown) - I discussed risks, benefits and side effects. Additionally, patient was (units unknown) (unknown) (unknown) (no date) (unknown) (unknown) - Imaging: No new imaging indicated at this time. [] (units unknown) (unknown) (unknown) (no date) (unknown) (unknown) - Interventional/Surgica l procedures: None indicated at this time. [] (units unknown) (unknown) (unknown) (no date) (unknown) (unknown) - Lumbar facet loading: [(-/+) on the R side / L side / bilaterally] (units unknown) (unknown) (unknown) (no date) (unknown) (unknown) - Medications: No new prescription at this time. Patient will continue current (units unknown) (unknown) (unknown) (no date) (unknown) (unknown) - Medications: acetaminophen, NSAIDS, neuropathics, muscle relaxants [] (units unknown) (unknown) (unknown) (no date) (unknown) (unknown) - Physical The rapy: Completed 6 week course in the last 6 months OR Patient (units unknown) (unknown) (unknown) (no date) (unknown) (unknown) - Physical therapy/modalities/DME : Patient will likely benefit from physical (units unknown) (unknown) (unknown) (no date) (unknown) (unknown) - Prescription provided and uptitration instructions given if necessary. [] (units unknown) (unknown) (unknown) (no date) (unknown) (unknown) - Previous [] on [] provided []% relief of pain for the expected duration of the (units unknown) (unknown) (unknown) (no date) (unknown) (unknown) - Referrals: N one indicated at this time. [] (units unknown) (unknown) (unknown) (no date) (unknown) (unknown) - SIJ provocat ion testing: [ (+/-) Iris's finger test, posterior thrust, (units unknown) (unknown) (unknown) (no date) (unknown) (unknown) - Straight Leg Raise: [(-/+) on the L side / R side / bilaterally] (units unknown) (unknown) (unknown) (no date) (unknown) (unknown) -to-moderate b ilateral foraminal stenosis (units unknown) (unknown) (unknown) (no date) (unknown) (unknown) 06/14/22 (units unknown) (unknown) (unknown) (no date) (unknown) (unknown) 10:53 (units unknown) (unknown) (unknown) (no date) (unknown) (unknown) 05/22/2021, 2:31.? (u nits unknown) (unknown) (unknown) (no date) (unknown) (unknown) 990 (units unknown) (unknown) (unknown) (no date) (unknown) (unknown) ? Inspection - ? No gross appendicular or axial deformities (units unknown) (unknown) (unknown) (no date) (unknown) (unknown) ? Palpation -? [Tender to palpation of / No tenderness to palpation] (units unknown) (unknown) (unknown) (no date) (unknown) (unknown) ? ROM - [Lumba r flexion/ extension/ lateral rotation is limited due to pain / (units unknown) (unknown) (unknown) (no date) (unknown) (unknown) ? Special tests (uni ts unknown) (unknown) (unknown) (no date) (unknown) (unknown) ? (units unknown) (unknown) (unknown) (no date) (unknown) (unknown) ? Acetaminophen (units unknown) (unknown) (unknown) (no date) (unknown) (unknown) ? Antidepressants (units unknown) (unknown) (unknown) (no date) (unknown) (unknown) ? Antiepileptics (units unknown) (unknown) (unknown) (no date) (unknown) (unknown) ? Mu scle Relaxants (units unknown) (unknown) (unknown) (no date) (unknown) (unknown) ? NSAIDs ( units unknown) (unknown) (unknown) (no date) (unknown) (unknown) ? Opioids (units unknown) (unknown) (unknown) (no date) (unknown) (unknown) ? Steroids (units unknown) (unknown) (unknown) (no date) (unknown) (unknown) ? Topicals (units unknown) (unknown) (unknown) (no date) (unknown) (unknown) Accompanied by : PARTNER: PADMA (units unknown) (unknown) (unknown) (no date) (unknown) (unknown) Age/Sex: 47 / M Date of Service: (units unknown) (unknown) (unknown) (no date) (unknown) (unknown) Aggravating fa ctors include: multiple body positions (units unknown) (unknown) (unknown) (no date) (unknown) (unknown) Alignment and Curvature:? There is normal bony alignment.? (units unknown) (unknown) (unknown) (no date) (unknown) (unknown) All other syst ems reviewed and are unremarkable except as noted in HPI. (units unknown) (unknown) (unknown) (no date) (unknown) (unknown) Allergies (units unknown) (unknown) (unknown) (no date) (unknown) (unknown) [place] [id number] (units unknown) (unknown) (unknown) (no date) (unknown) (unknown) Approved by: Vale Aden M.D. on 06/07/2022 at 14:37? (units unknown) (unknown) (unknown) (no date) (unknown) (unknown) Approved by: Fercho Khan M.D. on 06/04/2022 at 21:57 ? (units unknown) (unknown) (unknown) (no date) (unknown) (unknown) Assessment + Plan (u nits unknown) (unknown) (unknown) (no date) (unknown) (unknown) Assessment: (units unknown) (unknown) (unknown) (no date) (unknown) (unknown) Attending Dr: Dhiraj Daigle MD (units unknown) (unknown) (unknown) (no date) (unknown) (unknown) B/L S1 TFESI ( Dr. Blair) 05/26/2021 Improved pain for 1 month (units unknown) (unknown) (unknown) (no date) (unknown) (unknown) BMI 34.0 (units unknown) (unknown) (unknown) (no date) (unknown) (unknown) BP 120/70 (units unknown) (unknown) (unknown) (no date) (unknown) (unknown) Babinski's Radha ngoing Downgoing (units unknown) (unknown) (unknown) (no date) (unknown) (unknown) Blood Pressure Location Rt brachial (units unknown) (unknown) (unknown) (no date) (unknown) (unknown) Bone Marrow:? Wedge-shaped compression fracture T12 without marrow edema or (units unknown) (unknown) (unknown) (no date) (unknown) (unknown) Bones:? 5 fas-[id number]-pzpxlbj vertebrae are present.? Pedicle screw fixation at L3 (units unknown) (unknown) (unknown) (no date) (unknown) (unknown) Bowel and blad kael: No loss of control (units unknown) (unknown) (unknown) (no date) (unknown) (unknown) COMPARISON:? [facility], MR, MR LUMBAR SPINE WO CON, 03/09/2022, 20:09. (units unknown) (unknown) (unknown) (no date) (unknown) (unknown) COMPARISON:? [facility], CR, XR LUMBAR SPINE 2 OR 3 VIEWS, (units unknown) (unknown) (unknown) (no date) (unknown) (unknown) CONSULT TO DIS CUSS LOW BACK PAIN (units unknown) (unknown) (unknown) (no date) (unknown) (unknown) Cardiovascular : No edema or cyanosis. 2+ peripheral pulses (units unknown) (unknown) (unknown) (no date) (unknown) (unknown) Caudal No improvemen t (units unknown) (unknown) (unknown) (no date) (unknown) (unknown) Chart review: (units unknown) (unknown) (unknown) (no date) (unknown) (unknown) Chief Complaint (uni ts unknown) (unknown) (unknown) (no date) (unknown) (unknown) Chief Complain t: Low back and leg pain (units unknown) (unknown) (unknown) (no date) (unknown) (unknown) Chronic T12 compression fracture without retropulsed fracture fragment (units unknown) (unknown) (unknown) (no date) (unknown) (unknown) Clonus None None (un its unknown) (unknown) (unknown) (no date) (unknown) (unknown) Confirmed 06/14/22] (units unknown) (unknown) (unknown) (no date) (unknown) (unknown) Conservative management includes: (units unknown) (unknown) (unknown) (no date) (unknown) (unknown) Continue curre physical therapy. [] (units unknown) (unknown) (unknown) (no date) (unknown) (unknown) Continue home exercise program. 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 (units unknown) (unknown) (unknown) (no date) (unknown) (unknown) Details: (units unknown) (unknown) (unknown) (no date) (unknown) (unknown) Dictated by: Fercho Khan M.D. on 06/04/2022 at 21:55 ? ? (units unknown) (unknown) (unknown) (no date) (unknown) (unknown) Documented By: Dhiraj Daigle MD 06/13/22 1523 (units unknown) (unknown) (unknown) (no date) (unknown) (unknown) Draft (units unknown) (unknown) (unknown) (no date) (unknown) (unknown) Duloxetine 60 mg (un its unknown) (unknown) (unknown) (no date) (unknown) (unknown) Exam Narrative (unit s unknown) (unknown) (unknown) (no date) (unknown) (unknown) Exam Narrative: (uni ts unknown) (unknown) (unknown) (no date) (unknown) (unknown) Exam (units unknown) (unknown) (unknown) (no date) (unknown) (unknown) Mo DAVIDSON n's, Pelvic rocking on the R/L side / bilaterally] (units unknown) (unknown) (unknown) (no date) (unknown) (unknown) FINDINGS:? (units unknown) (unknown) (unknown) (no date) (unknown) (unknown) Gait/Station - [Non-antalgic gait. Heel (L5 strength) and toe (S1 strength) (units unknown) (unknown) (unknown) (no date) (unknown) (unknown) General: Well-nourished, well-developed, [sex] in no acute distress (units unknown) (unknown) (unknown) (no date) (unknown) (unknown) HPI (units unknown) (unknown) (unknown) (no date) (unknown) (unknown) He has been fo llowed by Dr. Blair at [facility]. He had bilateral S1 (units unknown) (unknown) (unknown) (no date) (unknown) (unknown) He reports fal l approx 3 weeks ago due to a slip. He had increased pain from (units unknown) (unknown) (unknown) (no date) (unknown) (unknown) He was not adm itted. He has a drop foot on the left. (units unknown) (unknown) (unknown) (no date) (unknown) (unknown) Height 6 ft (units unknown) (unknown) (unknown) (no date) (unknown) (unknown) IMPRESSION:? (units unknown) (unknown) (unknown) (no date) (unknown) (unknown) INDICATIONS:? New lower extremity weakness, pain exacerbation after twist (units unknown) (unknown) (unknown) (no date) (unknown) (unknown) INDICATIONS:? hx of multiple back surgeries with pain after fall (units unknown) (unknown) (unknown) (no date) (unknown) (unknown) Image quality: ? Excellent.? (units unknown) (unknown) (unknown) (no date) (unknown) (unknown) Injections: (units unknown) (unknown) (unknown) (no date) (unknown) (unknown) Intake Clinical Staf f (units unknown) (unknown) (unknown) (no date) (unknown) (unknown) Intake Note: (units unknown) (unknown) (unknown) (no date) (unknown) (unknown) Intake perform ed by: Paola Whitfield (units unknown) (unknown) (unknown) (no date) (unknown) (unknown) Intake (units unknown) (unknown) (unknown) (no date) (unknown) (unknown) Intervention: Date: Outcome: (units unknown) (unknown) (unknown) (no date) (unknown) (unknown) Is patient in pain?: Yes Pain scale (1-10): 8 (units unknown) (unknown) (unknown) (no date) (unknown) (unknown) [facility], [facility], MR LUMBAR SPINE WO CON, 03/09/2022, 20:09. (units unknown) (unknown) (unknown) (no date) (unknown) (unknown) JUSTIFICATION OF MEDICAL NECESSITY (units unknown) (unknown) (unknown) (no date) (unknown) (unknown) Kishor is a 47-y ear-old male with a history of chronic low back pain status post 3 (units unknown) (unknown) (unknown) (no date) (unknown) (unknown) L-spine/T-spin e/C-spin e MRI ordered to better delineate the anatomy and help (units unknown) (unknown) (unknown) (no date) (unknown) (unknown) L1-L2:? Disc s pace is preserved.? No central or foraminal stenosis (units unknown) (unknown) (unknown) (no date) (unknown) (unknown) L2 Hip Flexion 5/5 5/5? (units unknown) (unknown) (unknown) (no date) (unknown) (unknown) L2-L3:? Disc s pace narrowing and circumferential disc bulge results in moderate (units unknown) (unknown) (unknown) (no date) (unknown) (unknown) L3 Knee Extens ion 5/5 5/5 (units unknown) (unknown) (unknown) (no date) (unknown) (unknown) L3, L4 and L5 decompressive laminectomies with interbody fusion and posterior (units unknown) (unknown) (unknown) (no date) (unknown) (unknown) L3-L4:? Discec madonna and fusion with posterior decompression.? No central (units unknown) (unknown) (unknown) (no date) (unknown) (unknown) L4 Ankle Dorsi flexion 5/5 5/5 (units unknown) (unknown) (unknown) (no date) (unknown) (unknown) L4 Patella 2+ 2 (uni ts unknown) (unknown) (unknown) (no date) (unknown) (unknown) L4-L5:? Discec madonna and fusion with posterior decompression.? No central (units unknown) (unknown) (unknown) (no date) (unknown) (unknown) L5 Long Toe Ex tension 5/5 5/5 (units unknown) (unknown) (unknown) (no date) (unknown) (unknown) L5-S1:? Discec madonna and fusion with posterior decompression.? No central (units unknown) (unknown) (unknown) (no date) (unknown) (unknown) Lidoderm patch (unit s unknown) (unknown) (unknown) (no date) (unknown) (unknown) Loc: PAIN (units unknown) (unknown) (unknown) (no date) (unknown) (unknown) Lower lumbar s pine interbody fusion, posterior decompression and (units unknown) (unknown) (unknown) (no date) (unknown) (unknown) Lumbar spine f ixation appears stable. (units unknown) (unknown) (unknown) (no date) (unknown) (unknown) Lyrica 200 mg b.i.d. (units unknown) (unknown) (unknown) (no date) (unknown) (unknown) MSK: System re viewed and no additional complaints, except as documented. (units unknown) (unknown) (unknown) (no date) (unknown) (unknown) Medications (units unknown) (unknown) (unknown) (no date) (unknown) (unknown) Medications: (units unknown) (unknown) (unknown) (no date) (unknown) (unknown) Moderate left and right foraminal stenosis (units unknown) (unknown) (unknown) (no date) (unknown) (unknown) Motor (units unknown) (unknown) (unknown) (no date) (unknown) (unknown) Musculoskeletal: (un its unknown) (unknown) (unknown) (no date) (unknown) (unknown) Neuro: System reviewed and no additional complaints, except as documented. (units unknown) (unknown) (unknown) (no date) (unknown) (unknown) Neurologic: (units unknown) (unknown) (unknown) (no date) (unknown) (unknown) No suspicious bony lesions.? (units unknown) (unknown) (unknown) (no date) (unknown) (unknown) Noncontrast sa gittal T1 spin echo and T2 fast echo, sagittal STIR, and T2 fast (units unknown) (unknown) (unknown) (no date) (unknown) (unknown) Not indicated at this time. [] (units unknown) (unknown) (unknown) (no date) (unknown) (unknown) Numbness/Tingling: ( units unknown) (unknown) (unknown) (no date) (unknown) (unknown) Objective Data (unit s unknown) (unknown) (unknown) (no date) (unknown) (unknown) Objective Data: (uni ts unknown) (unknown) (unknown) (no date) (unknown) (unknown) Onset/Context of parish n: (units unknown) (unknown) (unknown) (no date) (unknown) (unknown) Onset: insidio us, exacerbated by recent fall (units unknown) (unknown) (unknown) (no date) (unknown) (unknown) Other: acupuncture ( units unknown) (unknown) (unknown) (no date) (unknown) (unknown) Oxygen Deliver y Method room air (units unknown) (unknown) (unknown) (no date) (unknown) (unknown) PFSH (units unknown) (unknown) (unknown) (no date) (unknown) (unknown) PROCEDURE:? MR LUMBAR SPINE WO CON (units unknown) (unknown) (unknown) (no date) (unknown) (unknown) PROCEDURE:? XR LUMBAR SPINE 2-3V (units unknown) (unknown) (unknown) (no date) (unknown) (unknown) PT: Last PT wa s about 2 months ago in [place] (units unknown) (unknown) (unknown) (no date) (unknown) (unknown) Pain Scale (units unknown) (unknown) (unknown) (no date) (unknown) (unknown) Pain Visit (units unknown) (unknown) (unknown) (no date) (unknown) (unknown) Pain location/Radiation: Back - 'in my back'; Bilateral legs; squeezing of (units unknown) (unknown) (unknown) (no date) (unknown) (unknown) Pain ratin /10 today, 10/10 at worst (units unknown) (unknown) (unknown) (no date) (unknown) (unknown) Paraspinous So ft Tissues:? No paravertebral masses.? (units unknown) (unknown) (unknown) (no date) (unknown) (unknown) Patient will r eturn for []. Risks and benefits were discussed. (units unknown) (unknown) (unknown) (no date) (unknown) (unknown) Patient's pain has been present for >6 weeks and is an average of >6/10 on 0-10 (units unknown) (unknown) (unknown) (no date) (unknown) (unknown) Patient: Kishor Carrasquillo MR#: [id number] (units unknown) (unknown) (unknown) (no date) (unknown) (unknown) Pertinent medi cations include: (units unknown) (unknown) (unknown) (no date) (unknown) (unknown) Plan (units unknown) (unknown) (unknown) (no date) (unknown) (unknown) Plan/Recommendations : (units unknown) (unknown) (unknown) (no date) (unknown) (unknown) Position Sitting (un its unknown) (unknown) (unknown) (no date) (unknown) (unknown) Prescriptions Written: [] (units unknown) (unknown) (unknown) (no date) (unknown) (unknown) Previous pain treatments included: (units unknown) (unknown) (unknown) (no date) (unknown) (unknown) Psych: Appropr iate affect, answers questions appropriately (units unknown) (unknown) (unknown) (no date) (unknown) (unknown) Pulse 80 (units unknown) (unknown) (unknown) (no date) (unknown) (unknown) Pulse Oximetry (%) 9 7 (units unknown) (unknown) (unknown) (no date) (unknown) (unknown) Pulse Source Monitor (units unknown) (unknown) (unknown) (no date) (unknown) (unknown) Quality and ti gerri of pain: (units unknown) (unknown) (unknown) (no date) (unknown) (unknown) ROS Narrative (units unknown) (unknown) (unknown) (no date) (unknown) (unknown) ROS Narrative: (unit s unknown) (unknown) (unknown) (no date) (unknown) (unknown) ROS (units unknown) (unknown) (unknown) (no date) (unknown) (unknown) Reason For Visit (un its unknown) (unknown) (unknown) (no date) (unknown) (unknown) Red flag symptoms: ( units unknown) (unknown) (unknown) (no date) (unknown) (unknown) Reflex Right Left (u nits unknown) (unknown) (unknown) (no date) (unknown) (unknown) Reflexes: (units unknown) (unknown) (unknown) (no date) (unknown) (unknown) Relieving fact ors include: changing positions, laying down (units unknown) (unknown) (unknown) (no date) (unknown) (unknown) Respiratory: Non-labored breathing pattern on RA. No respiratory distress (units unknown) (unknown) (unknown) (no date) (unknown) (unknown) Robaxin 750 mg (unit s unknown) (unknown) (unknown) (no date) (unknown) (unknown) S1 Achilles 2+ 2 (un its unknown) (unknown) (unknown) (no date) (unknown) (unknown) S1 Ankle Plantarflexion 5/5 5/5 (units unknown) (unknown) (unknown) (no date) (unknown) (unknown) S1 appears (units unknown) (unknown) (unknown) (no date) (unknown) (unknown) Saddle anesthe marina: denies (units unknown) (unknown) (unknown) (no date) (unknown) (unknown) Segment Action Right Left (units unknown) (unknown) (unknown) (no date) (unknown) (unknown) Segment Reflex Right Left (units unknown) (unknown) (unknown) (no date) (unknown) (unknown) Sensory -? Int act to light touch of bilateral lower extremities. Allodynia (units unknown) (unknown) (unknown) (no date) (unknown) (unknown) Signed By: (units unknown) (unknown) (unknown) (no date) (unknown) (unknown) Skin: No appre ciable rashes or skin breakdown (units unknown) (unknown) (unknown) (no date) (unknown) (unknown) Smoking Status : Never smoker (units unknown) (unknown) (unknown) (no date) (unknown) (unknown) Soft tissues:? Overlying bowel gas pattern is normal.? No suspicious soft tissue (units unknown) (unknown) (unknown) (no date) (unknown) (unknown) Spinal Cord:? Conus medullaris terminates at the L1 level.? Visualized cord (units unknown) (unknown) (unknown) (no date) (unknown) (unknown) Standing: incr eased leg and back pain (units unknown) (unknown) (unknown) (no date) (unknown) (unknown) Surgery: Annmarie payton is s/p L3-S1 posterior instrumented fusion in 2012 (units unknown) (unknown) (unknown) (no date) (unknown) (unknown) T12 compressio n fracture is unchanged. (units unknown) (unknown) (unknown) (no date) (unknown) (unknown) T12-L1:? Disc space is preserved.? No central or foraminal stenosis. (units unknown) (unknown) (unknown) (no date) (unknown) (unknown) TECHNIQUE:? 2 views of the lumbar spine were acquired.? (units unknown) (unknown) (unknown) (no date) (unknown) (unknown) TECHNIQUE:? (units unknown) (unknown) (unknown) (no date) (unknown) (unknown) Temp 98 F (units unknown) (unknown) (unknown) (no date) (unknown) (unknown) Temp Source Te mporal Artery Scan (units unknown) (unknown) (unknown) (no date) (unknown) (unknown) [facility] (units unknown) (unknown) (unknown) (no date) (unknown) (unknown) This note may have been all or partially generated using voice recognition (units unknown) (unknown) (unknown) (no date) (unknown) (unknown) Tobacco + Subs tance Use (units unknown) (unknown) (unknown) (no date) (unknown) (unknown) Tobacco Status (unit s unknown) (unknown) (unknown) (no date) (unknown) (unknown) Today I have r boogieiewed available medical information in the patient's medical (units unknown) (unknown) (unknown) (no date) (unknown) (unknown) Upper Motor Ne uron Signs: (units unknown) (unknown) (unknown) (no date) (unknown) (unknown) 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 (units unknown) (unknown) (unknown) (no date) (unknown) (unknown) We reviewed et iology, predisposing factor(s), natural course, imaging results as (units unknown) (unknown) (unknown) (no date) (unknown) (unknown) Weakness: denies (un its unknown) (unknown) (unknown) (no date) (unknown) (unknown) Weight 251 lb 4 oz ( units unknown) (unknown) (unknown) (no date) (unknown) (unknown) [Rx] (units unknown) (unknown) (unknown) (no date) (unknown) (unknown) any acute cervantes ge and hardware remained intact. He reports numbness/weakness at (units unknown) (unknown) (unknown) (no date) (unknown) (unknown) benefits of va rious treatment options were discussed with the patient in great (units unknown) (unknown) (unknown) (no date) (unknown) (unknown) bilateral fora solo stenosis (units unknown) (unknown) (unknown) (no date) (unknown) (unknown) bilateral test icles R>L (units unknown) (unknown) (unknown) (no date) (unknown) (unknown) bowel/bladder dysfunction, and perineal numbness were discussed. The patient was (units unknown) (unknown) (unknown) (no date) (unknown) (unknown) calcifications.? (un its unknown) (unknown) (unknown) (no date) (unknown) (unknown) cannot tolerat e physical therapy at the current time due to the intensity of the (units unknown) (unknown) (unknown) (no date) (unknown) (unknown) central stenosis. (u nits unknown) (unknown) (unknown) (no date) (unknown) (unknown) central stenos is.? Hypertrophic facet joints contribute to moderate bilateral (units unknown) (unknown) (unknown) (no date) (unknown) (unknown) change from (units unknown) (unknown) (unknown) (no date) (unknown) (unknown) claudication w ho presents for further evaluation of . (units unknown) (unknown) (unknown) (no date) (unknown) (unknown) compression fr acture, S1 radiculopathy, lumbar spinal stenosis with neurogenic (units unknown) (unknown) (unknown) (no date) (unknown) (unknown) demonstrates (units unknown) (unknown) (unknown) (no date) (unknown) (unknown) detail. (units unknown) (unknown) (unknown) (no date) (unknown) (unknown) duloxetine 60 mg capsule,delayed release 60 mg PO DAILY 06/14/22 [History (units unknown) (unknown) (unknown) (no date) (unknown) (unknown) foraminal (units unknown) (unknown) (unknown) (no date) (unknown) (unknown) from prior exam (uni ts unknown) (unknown) (unknown) (no date) (unknown) (unknown) have occurred. If there are any questions, please contact the Medical Records (units unknown) (unknown) (unknown) (no date) (unknown) (unknown) eliecer. He has be en to the ED 3 times recently. MRI was repeated which did not show (units unknown) (unknown) (unknown) (no date) (unknown) (unknown) improved sleep , improved mobility, etc. (units unknown) (unknown) (unknown) (no date) (unknown) (unknown) in PT. [] (units unknown) (unknown) (unknown) (no date) (unknown) (unknown) in his lower extremities. He was also referred to a spine surgeon who stated (units unknown) (unknown) (unknown) (no date) (unknown) (unknown) instructed to report to the Emergency department, if these symptoms occur. (units unknown) (unknown) (unknown) (no date) (unknown) (unknown) instructed to stop if any side effects. [] (units unknown) (unknown) (unknown) (no date) (unknown) (unknown) instrumentatio n, stable (units unknown) (unknown) (unknown) (no date) (unknown) (unknown) intravenous dr ug use, sustained glucocorticoid use, osteoporosis, or a focal (units unknown) (unknown) (unknown) (no date) (unknown) (unknown) lidocaine 5 % topical patch (Lidoderm) 1 patch topical DAILY #30 ea 06/07/22 (units unknown) (unknown) (unknown) (no date) (unknown) (unknown) local anesthet ic. During that time patient able to participate in ADLs, had (units unknown) (unknown) (unknown) (no date) (unknown) (unknown) lumbar spine operations including posterior instrumented fusion at L3-S1, T12 (units unknown) (unknown) (unknown) (no date) (unknown) (unknown) may be performed.? ( units unknown) (unknown) (unknown) (no date) (unknown) (unknown) may occur. Occ asional wrong-word or 'sound-alike' substitutions may have (units unknown) (unknown) (unknown) (no date) (unknown) (unknown) meds. [] (units unknown) (unknown) (unknown) (no date) (unknown) (unknown) methocarbamol 750 mg tablet 750 mg PO Q8H PRN muscle pain #30 tabs 06/07/22 [Rx] (units unknown) (unknown) (unknown) (no date) (unknown) (unknown) milk Allergy ( Mild, Verified 06/14/22 10:52) (units unknown) (unknown) (unknown) (no date) (unknown) (unknown) negative, Hype ralgesia - negative (units unknown) (unknown) (unknown) (no date) (unknown) (unknown) neurological d eficit with progressive or disabling symptoms. (units unknown) (unknown) (unknown) (no date) (unknown) (unknown) normal signal and size.? (units unknown) (unknown) (unknown) (no date) (unknown) (unknown) occurred due t o the inherent limitations of voice recognition software. Please (units unknown) (unknown) (unknown) (no date) (unknown) (unknown) of Spinal Cord Injur y) (units unknown) (unknown) (unknown) (no date) (unknown) (unknown) omeprazole 20 mg capsule,delayed release 20 mg PO DAILY 06/14/22 [History (units unknown) (unknown) (unknown) (no date) (unknown) (unknown) or immunosuppr essive therapy, previous or current cancer diagnosis, history of (units unknown) (unknown) (unknown) (no date) (unknown) (unknown) pain. [] (units unknown) (unknown) (unknown) (no date) (unknown) (unknown) pregabalin 200 mg capsule 200 mg PO TID 06/14/22 [History Confirmed 06/14/22] (units unknown) (unknown) (unknown) (no date) (unknown) (unknown) read the note carefully and recognize, using context, where these substitutions (units unknown) (unknown) (unknown) (no date) (unknown) (unknown) record, includ ing relevant provider notes, laboratory work, and imaging. (units unknown) (unknown) (unknown) (no date) (unknown) (unknown) jules and (units unknown) (unknown) (unknown) (no date) (unknown) (unknown) scale and/or p ain interferes with ADLs. 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 (units unknown) (unknown) (unknown) (no date) (unknown) (unknown) severe (units unknown) (unknown) (unknown) (no date) (unknown) (unknown) software. Alth ough every effort is made to edit content, manager inside errors (units unknown) (unknown) (unknown) (no date) (unknown) (unknown) spin echo (units unknown) (unknown) (unknown) (no date) (unknown) (unknown) stability intact.] ( units unknown) (unknown) (unknown) (no date) (unknown) (unknown) stable.? 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 T12 compression fracture, (units unknown) (unknown) (unknown) (no date) (unknown) (unknown) stenosis (units unknown) (unknown) (unknown) (no date) (unknown) (unknown) stenosis.? Mild (uni ts unknown) (unknown) (unknown) (no date) (unknown) (unknown) stenosis.? (units unknown) (unknown) (unknown) (no date) (unknown) (unknown) that he may be a candidate for decompression fusion at L2-3 but recommended (units unknown) (unknown) (unknown) (no date) (unknown) (unknown) the prior exam .? No retropulsed fracture fragment. (units unknown) (unknown) (unknown) (no date) (unknown) (unknown) the time and r equired transport. He was back up and walking the following day. (units unknown) (unknown) (unknown) (no date) (unknown) (unknown) therapeutic in jections and surgery. The risks, consequences, alternatives and (units unknown) (unknown) (unknown) (no date) (unknown) (unknown) therapy. ?A re ferral was provided for the patient. [] (units unknown) (unknown) (unknown) (no date) (unknown) (unknown) this. He treat ed with heat/cold and muscle relaxers. The pain worsened over t (units unknown) (unknown) (unknown) (no date) (unknown) (unknown) through the tank mbar spine.? In cases with scoliosis, additional coronal T2 fast (units unknown) (unknown) (unknown) (no date) (unknown) (unknown) to severe (units unknown) (unknown) (unknown) (no date) (unknown) (unknown) transforaminal MARI as were recommended by Dr. Blair but not performed. (units unknown) (unknown) (unknown) (no date) (unknown) (unknown) transforaminal MARI. He was referred to Neurology for electrodiagnostic studies (units unknown) (unknown) (unknown) (no date) (unknown) (unknown) trial of lumba r epidural steroid injection at L2-3. Bilateral L2-3 (units unknown) (unknown) (unknown) (no date) (unknown) (unknown) unchanged.? (units unknown) (unknown) (unknown) (no date) (unknown) (unknown) walking intact . Tandem gait normal without evidence of ataxia. Lower quarter (units unknown) (unknown) (unknown) (no date) (unknown) (unknown) well as treatm ent options including medications, physical therapy/exercise, (units unknown) (unknown) (unknown) (no date) (unknown) (unknown) with future tr eatment planning. [] (units unknown) (unknown) Result panel 24 (unknown) (no date) (unknown) (unknown) (no value) (units unknown) (unknown) (unknown) (no date) (unknown) (unknown) (0=absent, 1=s light response, 2=brisk/normal, 3=very brisk, 4=clonus) (units unknown) (unknown) (unknown) (no date) (unknown) (unknown) (segments are from the International Standards for Neurological Classification (units unknown) (unknown) (unknown) (no date) (unknown) (unknown) - Activity: Co ntinue activity as tolerated. [] (units unknown) (unknown) (unknown) (no date) (unknown) (unknown) - Chiropractor , acupuncture[] (units unknown) (unknown) (unknown) (no date) (unknown) (unknown) - Continues cl inician directed home exercise program including exercises learned (units unknown) (unknown) (unknown) (no date) (unknown) (unknown) - Education: C auda equina and associated symptoms, including motor weakness, (units unknown) (unknown) (unknown) (no date) (unknown) (unknown) - FADIR: [(-/+ ) on the R side / L side / bilaterally] (units unknown) (unknown) (unknown) (no date) (unknown) (unknown) - Follow-up: [] (uni ts unknown) (unknown) (unknown) (no date) (unknown) (unknown) - Hip ROM is: [WNL / limited and painful on the R sided / L side / bilaterally] (units unknown) (unknown) (unknown) (no date) (unknown) (unknown) - I discussed risks, benefits and side effects. Additionally, patient was (units unknown) (unknown) (unknown) (no date) (unknown) (unknown) - Imaging: No new imaging indicated at this time. [] (units unknown) (unknown) (unknown) (no date) (unknown) (unknown) - Interventional/Surgica l procedures: None indicated at this time. [] (units unknown) (unknown) (unknown) (no date) (unknown) (unknown) - Lumbar facet loading: [(-/+) on the R side / L side / bilaterally] (units unknown) (unknown) (unknown) (no date) (unknown) (unknown) - Medications: No new prescription at this time. Patient will continue current (units unknown) (unknown) (unknown) (no date) (unknown) (unknown) - Medications: acetaminophen, NSAIDS, neuropathics, muscle relaxants [] (units unknown) (unknown) (unknown) (no date) (unknown) (unknown) - Physical The rapy: Completed 6 week course in the last 6 months OR Patient (units unknown) (unknown) (unknown) (no date) (unknown) (unknown) - Physical therapy/modalities/DME : Patient will likely benefit from physical (units unknown) (unknown) (unknown) (no date) (unknown) (unknown) - Prescription provided and uptitration instructions given if necessary. [] (units unknown) (unknown) (unknown) (no date) (unknown) (unknown) - Previous [] on [] provided []% relief of pain for the expected duration of the (units unknown) (unknown) (unknown) (no date) (unknown) (unknown) - Referrals: N one indicated at this time. [] (units unknown) (unknown) (unknown) (no date) (unknown) (unknown) - SIJ provocat ion testing: [ (+/-) Iris's finger test, posterior thrust, (units unknown) (unknown) (unknown) (no date) (unknown) (unknown) - Straight Leg Raise: [(-/+) on the L side / R side / bilaterally] (units unknown) (unknown) (unknown) (no date) (unknown) (unknown) -to-moderate b ilateral foraminal stenosis (units unknown) (unknown) (unknown) (no date) (unknown) (unknown) 06/14/22 (units unknown) (unknown) (unknown) (no date) (unknown) (unknown) 10:53 (units unknown) (unknown) (unknown) (no date) (unknown) (unknown) 05/22/2021, 2:31.? (u nits unknown) (unknown) (unknown) (no date) (unknown) (unknown) 990 (units unknown) (unknown) (unknown) (no date) (unknown) (unknown) ? Inspection - ? No gross appendicular or axial deformities (units unknown) (unknown) (unknown) (no date) (unknown) (unknown) ? Palpation -? [Tender to palpation of / No tenderness to palpation] (units unknown) (unknown) (unknown) (no date) (unknown) (unknown) ? ROM - [Lumba r flexion/ extension/ lateral rotation is limited due to pain / (units unknown) (unknown) (unknown) (no date) (unknown) (unknown) ? Special tests (uni ts unknown) (unknown) (unknown) (no date) (unknown) (unknown) ? (units unknown) (unknown) (unknown) (no date) (unknown) (unknown) ? Acetaminophen (units unknown) (unknown) (unknown) (no date) (unknown) (unknown) ? Antidepressants (units unknown) (unknown) (unknown) (no date) (unknown) (unknown) ? Antiepileptics (units unknown) (unknown) (unknown) (no date) (unknown) (unknown) ? Mu scle Relaxants (units unknown) (unknown) (unknown) (no date) (unknown) (unknown) ? NSAIDs ( units unknown) (unknown) (unknown) (no date) (unknown) (unknown) ? Opioids (units unknown) (unknown) (unknown) (no date) (unknown) (unknown) ? Steroids (units unknown) (unknown) (unknown) (no date) (unknown) (unknown) ? Topicals (units unknown) (unknown) (unknown) (no date) (unknown) (unknown) Accompanied by : PARTNER: PADMA (units unknown) (unknown) (unknown) (no date) (unknown) (unknown) Age/Sex: 47 / M Date of Service: (units unknown) (unknown) (unknown) (no date) (unknown) (unknown) Aggravating fa ctors include: multiple body positions (units unknown) (unknown) (unknown) (no date) (unknown) (unknown) Alignment and Curvature:? There is normal bony alignment.? (units unknown) (unknown) (unknown) (no date) (unknown) (unknown) All other syst ems reviewed and are unremarkable except as noted in HPI. (units unknown) (unknown) (unknown) (no date) (unknown) (unknown) Allergies (units unknown) (unknown) (unknown) (no date) (unknown) (unknown) [place] [address] (units unknown) (unknown) (unknown) (no date) (unknown) (unknown) Approved by: Vale Aden M.D. on 06/07/2022 at 14:37? (units unknown) (unknown) (unknown) (no date) (unknown) (unknown) Approved by: Fercho Khan M.D. on 06/04/2022 at 21:57 ? (units unknown) (unknown) (unknown) (no date) (unknown) (unknown) Assessment + Plan (u nits unknown) (unknown) (unknown) (no date) (unknown) (unknown) Assessment: (units unknown) (unknown) (unknown) (no date) (unknown) (unknown) Attending Dr: Dhiraj Daigle MD (units unknown) (unknown) (unknown) (no date) (unknown) (unknown) B/L S1 TFESI ( Dr. Blair) 05/26/2021 Improved pain for 1 month (units unknown) (unknown) (unknown) (no date) (unknown) (unknown) BMI 34.0 (units unknown) (unknown) (unknown) (no date) (unknown) (unknown) BP 120/70 (units unknown) (unknown) (unknown) (no date) (unknown) (unknown) Babinski's Radha ngoing Downgoing (units unknown) (unknown) (unknown) (no date) (unknown) (unknown) Blood Pressure Location Rt brachial (units unknown) (unknown) (unknown) (no date) (unknown) (unknown) Bone Marrow:? Wedge-shaped compression fracture T12 without marrow edema or (units unknown) (unknown) (unknown) (no date) (unknown) (unknown) Bones:? 5 kyh-iuy-[id number] vertebrae are present.? Pedicle screw fixation at L3 (units unknown) (unknown) (unknown) (no date) (unknown) (unknown) Bowel and blad kael: No loss of control (units unknown) (unknown) (unknown) (no date) (unknown) (unknown) COMPARISON:? [facility], MR, MR LUMBAR SPINE WO CON, 03/09/2022, 20:09. (units unknown) (unknown) (unknown) (no date) (unknown) (unknown) COMPARISON:? [facility], CR, XR LUMBAR SPINE 2 OR 3 VIEWS, (units unknown) (unknown) (unknown) (no date) (unknown) (unknown) CONSULT TO DIS CUSS LOW BACK PAIN (units unknown) (unknown) (unknown) (no date) (unknown) (unknown) Cardiovascular : No edema or cyanosis. 2+ peripheral pulses (units unknown) (unknown) (unknown) (no date) (unknown) (unknown) Caudal No improvemen t (units unknown) (unknown) (unknown) (no date) (unknown) (unknown) Chart review: (units unknown) (unknown) (unknown) (no date) (unknown) (unknown) Chief Complaint (uni ts unknown) (unknown) (unknown) (no date) (unknown) (unknown) Chief Complain t: Low back and leg pain (units unknown) (unknown) (unknown) (no date) (unknown) (unknown) Chronic T12 compression fracture without retropulsed fracture fragment (units unknown) (unknown) (unknown) (no date) (unknown) (unknown) Clonus None None (un its unknown) (unknown) (unknown) (no date) (unknown) (unknown) Confirmed 06/14/22] (units unknown) (unknown) (unknown) (no date) (unknown) (unknown) Conservative management includes: (units unknown) (unknown) (unknown) (no date) (unknown) (unknown) [facility]. [] (units unknown) (unknown) (unknown) (no date) (unknown) (unknown) Continue home exercise program. 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 (units unknown) (unknown) (unknown) (no date) (unknown) (unknown) Details: (units unknown) (unknown) (unknown) (no date) (unknown) (unknown) Dictated by: Fercho Khan M.D. on 06/04/2022 at 21:55 ? ? (units unknown) (unknown) (unknown) (no date) (unknown) (unknown) Documented By: Dhiraj Daigle MD 06/13/22 1523 (units unknown) (unknown) (unknown) (no date) (unknown) (unknown) Draft (units unknown) (unknown) (unknown) (no date) (unknown) (unknown) Duloxetine 60 mg (un its unknown) (unknown) (unknown) (no date) (unknown) (unknown) Exam Narrative (unit s unknown) (unknown) (unknown) (no date) (unknown) (unknown) Exam Narrative: (uni ts unknown) (unknown) (unknown) (no date) (unknown) (unknown) Exam (units unknown) (unknown) (unknown) (no date) (unknown) (unknown) Mo DAVIDSON n's, Pelvic rocking on the R/L side / bilaterally] (units unknown) (unknown) (unknown) (no date) (unknown) (unknown) FINDINGS:? (units unknown) (unknown) (unknown) (no date) (unknown) (unknown) Gait/Station - [Non-antalgic gait. Heel (L5 strength) and toe (S1 strength) (units unknown) (unknown) (unknown) (no date) (unknown) (unknown) General: Well-nourished, well-developed, [sex] in no acute distress (units unknown) (unknown) (unknown) (no date) (unknown) (unknown) HPI (units unknown) (unknown) (unknown) (no date) (unknown) (unknown) He has been fo llowed by Dr. Blair at [facility]. He had bilateral S1 (units unknown) (unknown) (unknown) (no date) (unknown) (unknown) He reports fal l approx 3 weeks ago due to a slip. He had increased pain from (units unknown) (unknown) (unknown) (no date) (unknown) (unknown) He was not adm itted. He has a drop foot on the left. (units unknown) (unknown) (unknown) (no date) (unknown) (unknown) Height 6 ft (units unknown) (unknown) (unknown) (no date) (unknown) (unknown) IMPRESSION:? (units unknown) (unknown) (unknown) (no date) (unknown) (unknown) INDICATIONS:? New lower extremity weakness, pain exacerbation after twist (units unknown) (unknown) (unknown) (no date) (unknown) (unknown) INDICATIONS:? hx of multiple back surgeries with pain after fall (units unknown) (unknown) (unknown) (no date) (unknown) (unknown) Image quality: ? Excellent.? (units unknown) (unknown) (unknown) (no date) (unknown) (unknown) Injections: (units unknown) (unknown) (unknown) (no date) (unknown) (unknown) Intake Clinical Staf f (units unknown) (unknown) (unknown) (no date) (unknown) (unknown) Intake Note: (units unknown) (unknown) (unknown) (no date) (unknown) (unknown) Intake perform ed by: Paola Whitfield (units unknown) (unknown) (unknown) (no date) (unknown) (unknown) Intake (units unknown) (unknown) (unknown) (no date) (unknown) (unknown) Intervention: Date: Outcome: (units unknown) (unknown) (unknown) (no date) (unknown) (unknown) Is patient in pain?: Yes Pain scale (1-10): 8 (units unknown) (unknown) (unknown) (no date) (unknown) (unknown) MR [facility], MR LUMBAR SPINE WO CON, 03/09/2022, 20:09. (units unknown) (unknown) (unknown) (no date) (unknown) (unknown) JUSTIFICATION OF MEDICAL NECESSITY (units unknown) (unknown) (unknown) (no date) (unknown) (unknown) Kishor is a 47-y ear-old male with a history of chronic low back pain status post 3 (units unknown) (unknown) (unknown) (no date) (unknown) (unknown) L-spine/T-spin e/C-spin e MRI ordered to better delineate the anatomy and help (units unknown) (unknown) (unknown) (no date) (unknown) (unknown) L1-L2:? Disc s pace is preserved.? No central or foraminal stenosis (units unknown) (unknown) (unknown) (no date) (unknown) (unknown) L2 Hip Flexion 5/5 5/5? (units unknown) (unknown) (unknown) (no date) (unknown) (unknown) L2-L3:? Disc s pace narrowing and circumferential disc bulge results in moderate (units unknown) (unknown) (unknown) (no date) (unknown) (unknown) L3 Knee Extens ion 5/5 5/5 (units unknown) (unknown) (unknown) (no date) (unknown) (unknown) L3, L4 and L5 decompressive laminectomies with interbody fusion and posterior (units unknown) (unknown) (unknown) (no date) (unknown) (unknown) L3-L4:? Discec madonna and fusion with posterior decompression.? No central (units unknown) (unknown) (unknown) (no date) (unknown) (unknown) L4 Ankle Dorsi flexion 5/5 5/5 (units unknown) (unknown) (unknown) (no date) (unknown) (unknown) L4 Patella 2+ 2 (uni ts unknown) (unknown) (unknown) (no date) (unknown) (unknown) L4-L5:? Discec madonna and fusion with posterior decompression.? No central (units unknown) (unknown) (unknown) (no date) (unknown) (unknown) L5 Long Toe Ex tension 5/5 5/5 (units unknown) (unknown) (unknown) (no date) (unknown) (unknown) L5-S1:? Discec madonna and fusion with posterior decompression.? No central (units unknown) (unknown) (unknown) (no date) (unknown) (unknown) Lidoderm patch (unit s unknown) (unknown) (unknown) (no date) (unknown) (unknown) Loc: PAIN (units unknown) (unknown) (unknown) (no date) (unknown) (unknown) Lower lumbar s pine interbody fusion, posterior decompression and (units unknown) (unknown) (unknown) (no date) (unknown) (unknown) Lumbar spine f ixation appears stable. (units unknown) (unknown) (unknown) (no date) (unknown) (unknown) Lyrica 200 mg b.i.d. (units unknown) (unknown) (unknown) (no date) (unknown) (unknown) MSK: System re viewed and no additional complaints, except as documented. (units unknown) (unknown) (unknown) (no date) (unknown) (unknown) Medications (units unknown) (unknown) (unknown) (no date) (unknown) (unknown) Medications: (units unknown) (unknown) (unknown) (no date) (unknown) (unknown) Moderate left and right foraminal stenosis (units unknown) (unknown) (unknown) (no date) (unknown) (unknown) Motor (units unknown) (unknown) (unknown) (no date) (unknown) (unknown) Musculoskeletal: (un its unknown) (unknown) (unknown) (no date) (unknown) (unknown) Neuro: System reviewed and no additional complaints, except as documented. (units unknown) (unknown) (unknown) (no date) (unknown) (unknown) Neurologic: (units unknown) (unknown) (unknown) (no date) (unknown) (unknown) No suspicious bony lesions.? (units unknown) (unknown) (unknown) (no date) (unknown) (unknown) Noncontrast sa gittal T1 spin echo and T2 fast echo, sagittal STIR, and T2 fast (units unknown) (unknown) (unknown) (no date) (unknown) (unknown) Not indicated at this time. [] (units unknown) (unknown) (unknown) (no date) (unknown) (unknown) Numbness/Tingling: ( units unknown) (unknown) (unknown) (no date) (unknown) (unknown) Objective Data (unit s unknown) (unknown) (unknown) (no date) (unknown) (unknown) Objective Data: (uni ts unknown) (unknown) (unknown) (no date) (unknown) (unknown) Onset/Context of parish n: (units unknown) (unknown) (unknown) (no date) (unknown) (unknown) Onset: insidio us, exacerbated by recent fall (units unknown) (unknown) (unknown) (no date) (unknown) (unknown) Other: acupuncture ( units unknown) (unknown) (unknown) (no date) (unknown) (unknown) Oxygen Deliver y Method room air (units unknown) (unknown) (unknown) (no date) (unknown) (unknown) PFSH (units unknown) (unknown) (unknown) (no date) (unknown) (unknown) PROCEDURE:? MR LUMBAR SPINE WO CON (units unknown) (unknown) (unknown) (no date) (unknown) (unknown) PROCEDURE:? XR LUMBAR SPINE 2-3V (units unknown) (unknown) (unknown) (no date) (unknown) (unknown) PT: Last PT wa s about 2 months ago in [place] (units unknown) (unknown) (unknown) (no date) (unknown) (unknown) Pain Scale (units unknown) (unknown) (unknown) (no date) (unknown) (unknown) Pain Visit (units unknown) (unknown) (unknown) (no date) (unknown) (unknown) Pain location/Radiation: Back - 'in my back'; Bilateral legs; squeezing of (units unknown) (unknown) (unknown) (no date) (unknown) (unknown) Pain ratin /10 today, 10/10 at worst (units unknown) (unknown) (unknown) (no date) (unknown) (unknown) Paraspinous So ft Tissues:? No paravertebral masses.? (units unknown) (unknown) (unknown) (no date) (unknown) (unknown) Patient will r eturn for []. Risks and benefits were discussed. (units unknown) (unknown) (unknown) (no date) (unknown) (unknown) Patient's pain has been present for >6 weeks and is an average of >6/10 on 0-10 (units unknown) (unknown) (unknown) (no date) (unknown) (unknown) Patient: Kishor Carrasquillo MR#: [id number] (units unknown) (unknown) (unknown) (no date) (unknown) (unknown) Pertinent medi cations include: (units unknown) (unknown) (unknown) (no date) (unknown) (unknown) Plan (units unknown) (unknown) (unknown) (no date) (unknown) (unknown) Plan/Recommendations : (units unknown) (unknown) (unknown) (no date) (unknown) (unknown) Position Sitting (un its unknown) (unknown) (unknown) (no date) (unknown) (unknown) Prescriptions Written: [] (units unknown) (unknown) (unknown) (no date) (unknown) (unknown) Previous pain treatments included: (units unknown) (unknown) (unknown) (no date) (unknown) (unknown) Psych: Appropr iate affect, answers questions appropriately (units unknown) (unknown) (unknown) (no date) (unknown) (unknown) Pulse 80 (units unknown) (unknown) (unknown) (no date) (unknown) (unknown) Pulse Oximetry (%) 9 7 (units unknown) (unknown) (unknown) (no date) (unknown) (unknown) Pulse Source Monitor (units unknown) (unknown) (unknown) (no date) (unknown) (unknown) Quality and ti gerri of pain: (units unknown) (unknown) (unknown) (no date) (unknown) (unknown) ROS Narrative (units unknown) (unknown) (unknown) (no date) (unknown) (unknown) ROS Narrative: (unit s unknown) (unknown) (unknown) (no date) (unknown) (unknown) ROS (units unknown) (unknown) (unknown) (no date) (unknown) (unknown) Reason For Visit (un its unknown) (unknown) (unknown) (no date) (unknown) (unknown) Red flag symptoms: ( units unknown) (unknown) (unknown) (no date) (unknown) (unknown) Reflex Right Left (u nits unknown) (unknown) (unknown) (no date) (unknown) (unknown) Reflexes: (units unknown) (unknown) (unknown) (no date) (unknown) (unknown) Relieving fact ors include: changing positions, laying down (units unknown) (unknown) (unknown) (no date) (unknown) (unknown) Respiratory: Non-labored breathing pattern on RA. No respiratory distress (units unknown) (unknown) (unknown) (no date) (unknown) (unknown) Robaxin 750 mg (unit s unknown) (unknown) (unknown) (no date) (unknown) (unknown) S1 Achilles 2+ 2 (un its unknown) (unknown) (unknown) (no date) (unknown) (unknown) S1 Ankle Plantarflexion 5/5 5/5 (units unknown) (unknown) (unknown) (no date) (unknown) (unknown) S1 appears (units unknown) (unknown) (unknown) (no date) (unknown) (unknown) Saddle anesthe marina: denies (units unknown) (unknown) (unknown) (no date) (unknown) (unknown) Segment Action Right Left (units unknown) (unknown) (unknown) (no date) (unknown) (unknown) Segment Reflex Right Left (units unknown) (unknown) (unknown) (no date) (unknown) (unknown) Sensory -? Int act to light touch of bilateral lower extremities. Allodynia (units unknown) (unknown) (unknown) (no date) (unknown) (unknown) Signed By: (units unknown) (unknown) (unknown) (no date) (unknown) (unknown) Skin: No appre ciable rashes or skin breakdown (units unknown) (unknown) (unknown) (no date) (unknown) (unknown) Smoking Status : Never smoker (units unknown) (unknown) (unknown) (no date) (unknown) (unknown) Soft tissues:? Overlying bowel gas pattern is normal.? No suspicious soft tissue (units unknown) (unknown) (unknown) (no date) (unknown) (unknown) Spinal Cord:? Conus medullaris terminates at the L1 level.? Visualized cord (units unknown) (unknown) (unknown) (no date) (unknown) (unknown) Standing: incr eased leg and back pain (units unknown) (unknown) (unknown) (no date) (unknown) (unknown) Surgery: Pativale nt is s/p L3-S1 posterior instrumented fusion in 2012 (units unknown) (unknown) (unknown) (no date) (unknown) (unknown) T12 compressio n fracture is unchanged. (units unknown) (unknown) (unknown) (no date) (unknown) (unknown) T12-L1:? Disc space is preserved.? No central or foraminal stenosis. (units unknown) (unknown) (unknown) (no date) (unknown) (unknown) TECHNIQUE:? 2 views of the lumbar spine were acquired.? (units unknown) (unknown) (unknown) (no date) (unknown) (unknown) TECHNIQUE:? (units unknown) (unknown) (unknown) (no date) (unknown) (unknown) Temp 98 F (units unknown) (unknown) (unknown) (no date) (unknown) (unknown) Temp Source Te mporal Artery Scan (units unknown) (unknown) (unknown) (no date) (unknown) (unknown) [facility] (units unknown) (unknown) (unknown) (no date) (unknown) (unknown) This note may have been all or partially generated using voice recognition (units unknown) (unknown) (unknown) (no date) (unknown) (unknown) Tobacco + Subs tance Use (units unknown) (unknown) (unknown) (no date) (unknown) (unknown) Tobacco Status (unit s unknown) (unknown) (unknown) (no date) (unknown) (unknown) Today I have r eviewed available medical information in the patient's medical (units unknown) (unknown) (unknown) (no date) (unknown) (unknown) Upper Motor Ne uron Signs: (units unknown) (unknown) (unknown) (no date) (unknown) (unknown) 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 (units unknown) (unknown) (unknown) (no date) (unknown) (unknown) We reviewed et iology, predisposing factor(s), natural course, imaging results as (units unknown) (unknown) (unknown) (no date) (unknown) (unknown) Weakness: denies (un its unknown) (unknown) (unknown) (no date) (unknown) (unknown) Weight 251 lb 4 oz ( units unknown) (unknown) (unknown) (no date) (unknown) (unknown) [Rx] (units unknown) (unknown) (unknown) (no date) (unknown) (unknown) any acute cervantes ge and hardware remained intact. He reports numbness/weakness at (units unknown) (unknown) (unknown) (no date) (unknown) (unknown) benefits of va rious treatment options were discussed with the patient in great (units unknown) (unknown) (unknown) (no date) (unknown) (unknown) bilateral fora solo stenosis (units unknown) (unknown) (unknown) (no date) (unknown) (unknown) bilateral test icles R>L (units unknown) (unknown) (unknown) (no date) (unknown) (unknown) bowel/bladder dysfunction, and perineal numbness were discussed. The patient was (units unknown) (unknown) (unknown) (no date) (unknown) (unknown) calcifications.? (un its unknown) (unknown) (unknown) (no date) (unknown) (unknown) cannot tolerat e physical therapy at the current time due to the intensity of the (units unknown) (unknown) (unknown) (no date) (unknown) (unknown) central stenosis. (u nits unknown) (unknown) (unknown) (no date) (unknown) (unknown) central stenos is.? Hypertrophic facet joints contribute to moderate bilateral (units unknown) (unknown) (unknown) (no date) (unknown) (unknown) change from (units unknown) (unknown) (unknown) (no date) (unknown) (unknown) claudication w ho presents for further evaluation of . (units unknown) (unknown) (unknown) (no date) (unknown) (unknown) compression fr acture, S1 radiculopathy, lumbar spinal stenosis with neurogenic (units unknown) (unknown) (unknown) (no date) (unknown) (unknown) demonstrates (units unknown) (unknown) (unknown) (no date) (unknown) (unknown) detail. (units unknown) (unknown) (unknown) (no date) (unknown) (unknown) duloxetine 60 mg capsule,delayed release 60 mg PO DAILY 06/14/22 [History (units unknown) (unknown) (unknown) (no date) (unknown) (unknown) foraminal (units unknown) (unknown) (unknown) (no date) (unknown) (unknown) from prior exam (uni ts unknown) (unknown) (unknown) (no date) (unknown) (unknown) have occurred. If there are any questions, please contact the Medical Records (units unknown) (unknown) (unknown) (no date) (unknown) (unknown) eliecer. He has be en to the ED 3 times recently. MRI was repeated which did not show (units unknown) (unknown) (unknown) (no date) (unknown) (unknown) improved sleep , improved mobility, etc. (units unknown) (unknown) (unknown) (no date) (unknown) (unknown) in PT. [] (units unknown) (unknown) (unknown) (no date) (unknown) (unknown) in his lower extremities. He was also referred to a spine surgeon who stated (units unknown) (unknown) (unknown) (no date) (unknown) (unknown) instructed to report to the Emergency department, if these symptoms occur. (units unknown) (unknown) (unknown) (no date) (unknown) (unknown) instructed to stop if any side effects. [] (units unknown) (unknown) (unknown) (no date) (unknown) (unknown) instrumentatio n, stable (units unknown) (unknown) (unknown) (no date) (unknown) (unknown) intravenous dr ug use, sustained glucocorticoid use, osteoporosis, or a focal (units unknown) (unknown) (unknown) (no date) (unknown) (unknown) lidocaine 5 % topical patch (Lidoderm) 1 patch topical DAILY #30 ea 06/07/22 (units unknown) (unknown) (unknown) (no date) (unknown) (unknown) local anesthet ic. During that time patient able to participate in ADLs, had (units unknown) (unknown) (unknown) (no date) (unknown) (unknown) lumbar spine operations including posterior instrumented fusion at L3-S1, T12 (units unknown) (unknown) (unknown) (no date) (unknown) (unknown) may be performed.? ( units unknown) (unknown) (unknown) (no date) (unknown) (unknown) may occur. Occ asional wrong-word or 'sound-alike' substitutions may have (units unknown) (unknown) (unknown) (no date) (unknown) (unknown) meds. [] (units unknown) (unknown) (unknown) (no date) (unknown) (unknown) methocarbamol 750 mg tablet 750 mg PO Q8H PRN muscle pain #30 tabs 06/07/22 [Rx] (units unknown) (unknown) (unknown) (no date) (unknown) (unknown) milk Allergy ( Mild, Verified 06/14/22 10:52) (units unknown) (unknown) (unknown) (no date) (unknown) (unknown) negative, Hype ralgesia - negative (units unknown) (unknown) (unknown) (no date) (unknown) (unknown) neurological d eficit with progressive or disabling symptoms. (units unknown) (unknown) (unknown) (no date) (unknown) (unknown) normal signal and size.? (units unknown) (unknown) (unknown) (no date) (unknown) (unknown) occurred due t o the inherent limitations of voice recognition software. Please (units unknown) (unknown) (unknown) (no date) (unknown) (unknown) of Spinal Cord Injur y) (units unknown) (unknown) (unknown) (no date) (unknown) (unknown) omeprazole 20 mg capsule,delayed release 20 mg PO DAILY 06/14/22 [History (units unknown) (unknown) (unknown) (no date) (unknown) (unknown) or immunosuppr essive therapy, previous or current cancer diagnosis, history of (units unknown) (unknown) (unknown) (no date) (unknown) (unknown) pain. [] (units unknown) (unknown) (unknown) (no date) (unknown) (unknown) pregabalin 200 mg capsule 200 mg PO TID 06/14/22 [History Confirmed 06/14/22] (units unknown) (unknown) (unknown) (no date) (unknown) (unknown) read the note carefully and recognize, using context, where these substitutions (units unknown) (unknown) (unknown) (no date) (unknown) (unknown) record, includ ing relevant provider notes, laboratory work, and imaging. (units unknown) (unknown) (unknown) (no date) (unknown) (unknown) jules and (units unknown) (unknown) (unknown) (no date) (unknown) (unknown) scale and/or p ain interferes with ADLs. 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 (units unknown) (unknown) (unknown) (no date) (unknown) (unknown) severe (units unknown) (unknown) (unknown) (no date) (unknown) (unknown) software. Alth ough every effort is made to edit content, manager inside errors (units unknown) (unknown) (unknown) (no date) (unknown) (unknown) spin echo (units unknown) (unknown) (unknown) (no date) (unknown) (unknown) stability intact.] ( units unknown) (unknown) (unknown) (no date) (unknown) (unknown) stable.? 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 T12 compression fracture, (units unknown) (unknown) (unknown) (no date) (unknown) (unknown) stenosis (units unknown) (unknown) (unknown) (no date) (unknown) (unknown) stenosis.? Mild (uni ts unknown) (unknown) (unknown) (no date) (unknown) (unknown) stenosis.? (units unknown) (unknown) (unknown) (no date) (unknown) (unknown) that he may be a candidate for decompression fusion at L2-3 but recommended (units unknown) (unknown) (unknown) (no date) (unknown) (unknown) the prior exam .? No retropulsed fracture fragment. (units unknown) (unknown) (unknown) (no date) (unknown) (unknown) the time and r equired transport. He was back up and walking the following day. (units unknown) (unknown) (unknown) (no date) (unknown) (unknown) therapeutic in jections and surgery. The risks, consequences, alternatives and (units unknown) (unknown) (unknown) (no date) (unknown) (unknown) therapy. ?A re ferral was provided for the patient. [] (units unknown) (unknown) (unknown) (no date) (unknown) (unknown) this. He treat ed with heat/cold and muscle relaxers. The pain worsened over t (units unknown) (unknown) (unknown) (no date) (unknown) (unknown) through the [facility] spine.? In cases with scoliosis, additional coronal T2 fast (units unknown) (unknown) (unknown) (no date) (unknown) (unknown) to severe (units unknown) (unknown) (unknown) (no date) (unknown) (unknown) transforaminal MARI as were recommended by Dr. Blair but not performed. (units unknown) (unknown) (unknown) (no date) (unknown) (unknown) transforaminal MARI. He was referred to Neurology for electrodiagnostic studies (units unknown) (unknown) (unknown) (no date) (unknown) (unknown) trial of lumba r epidural steroid injection at L2-3. Bilateral L2-3 (units unknown) (unknown) (unknown) (no date) (unknown) (unknown) unchanged.? (units unknown) (unknown) (unknown) (no date) (unknown) (unknown) walking intact . Tandem gait normal without evidence of ataxia. Lower quarter (units unknown) (unknown) (unknown) (no date) (unknown) (unknown) well as treatm ent options including medications, physical therapy/exercise, (units unknown) (unknown) (unknown) (no date) (unknown) (unknown) with future tr eatment planning. 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 (units unknown) (unknown) (unknown) (no date) (unknown) (unknown) - Chiropractor , acupuncture (units unknown) (unknown) (unknown) (no date) (unknown) (unknown) - Education: C auda equina and associated symptoms, including motor weakness, (units unknown) (unknown) (unknown) (no date) (unknown) (unknown) - FADIR: Negat franklin bilaterally (units unknown) (unknown) (unknown) (no date) (unknown) (unknown) - Follow-up: After E SI (units unknown) (unknown) (unknown) (no date) (unknown) (unknown) - Hip ROM is: Within normal limits (units unknown) (unknown) (unknown) (no date) (unknown) (unknown) - I discussed risks, benefits and side effects. Additionally, patient was (units unknown) (unknown) (unknown) (no date) (unknown) (unknown) - Imaging: No new imaging indicated at this time. (units unknown) (unknown) (unknown) (no date) (unknown) (unknown) - Interventional/Surgica l procedures: Patient will return for bilateral S1 (units unknown) (unknown) (unknown) (no date) (unknown) (unknown) - Lumbar facet loading: Negative bilaterally (units unknown) (unknown) (unknown) (no date) (unknown) (unknown) - Medications: Prescriptions Written: Tramadol 50 mg t.i.d., lidocaine 5% patch (units unknown) (unknown) (unknown) (no date) (unknown) (unknown) - Medications: acetaminophen, NSAIDS, neuropathics, muscle relaxants (units unknown) (unknown) (unknown) (no date) (unknown) (unknown) - Physical The rapy: Completed 6 week course in the last 6 months (units unknown) (unknown) (unknown) (no date) (unknown) (unknown) - Physical therapy/modalities/DME : Patient will likely benefit from physical (units unknown) (unknown) (unknown) (no date) (unknown) (unknown) - Prescription provided and uptitration instructions given if necessary. (units unknown) (unknown) (unknown) (no date) (unknown) (unknown) - Referrals: N one indicated at this time. (units unknown) (unknown) (unknown) (no date) (unknown) (unknown) - SIJ provocat ion testing: Negative bilaterally (units unknown) (unknown) (unknown) (no date) (unknown) (unknown) - Straight Leg Raise: Increased pain bilaterally (units unknown) (unknown) (unknown) (no date) (unknown) (unknown) -to-moderate b ilateral foraminal stenosis (units unknown) (unknown) (unknown) (no date) (unknown) (unknown) 06/14/22 1654 (units unknown) (unknown) (unknown) (no date) (unknown) (unknown) 06/14/22 (units unknown) (unknown) (unknown) (no date) (unknown) (unknown) 06/14/22] (units unknown) (unknown) (unknown) (no date) (unknown) (unknown) 10:53 (units unknown) (unknown) (unknown) (no date) (unknown) (unknown) 05/22/2021, 2:31.? (u nits unknown) (unknown) (unknown) (no date) (unknown) (unknown) 990 (units unknown) (unknown) (unknown) (no date) (unknown) (unknown) ? Inspection - ? No gross appendicular or axial deformities (units unknown) (unknown) (unknown) (no date) (unknown) (unknown) ? Palpation -n o tenderness to palpation (units unknown) (unknown) (unknown) (no date) (unknown) (unknown) ? ROM -lumbar range of motion limited in all planes (units unknown) (unknown) (unknown) (no date) (unknown) (unknown) ? Special tests (uni ts unknown) (unknown) (unknown) (no date) (unknown) (unknown) ? (units unknown) (unknown) (unknown) (no date) (unknown) (unknown) ? Acetaminophen (units unknown) (unknown) (unknown) (no date) (unknown) (unknown) ? Antidepressants (units unknown) (unknown) (unknown) (no date) (unknown) (unknown) ? Antiepileptics (units unknown) (unknown) (unknown) (no date) (unknown) (unknown) ? Mu scle Relaxants (units unknown) (unknown) (unknown) (no date) (unknown) (unknown) ? NSAIDs ( units unknown) (unknown) (unknown) (no date) (unknown) (unknown) ? Opioids (units unknown) (unknown) (unknown) (no date) (unknown) (unknown) ? Steroids (units unknown) (unknown) (unknown) (no date) (unknown) (unknown) ? Topicals (units unknown) (unknown) (unknown) (no date) (unknown) (unknown) Accompanied by : PARTNER: PDAMA (units unknown) (unknown) (unknown) (no date) (unknown) (unknown) Age/Sex: 47 / M Date of Service: (units unknown) (unknown) (unknown) (no date) (unknown) (unknown) Aggravating fa ctors include: multiple body positions (units unknown) (unknown) (unknown) (no date) (unknown) (unknown) Alignment and Curvature:? There is normal bony alignment.? (units unknown) (unknown) (unknown) (no date) (unknown) (unknown) All other syst ems reviewed and are unremarkable except as noted in HPI. (units unknown) (unknown) (unknown) (no date) (unknown) (unknown) Allergies (units unknown) (unknown) (unknown) (no date) (unknown) (unknown) [place] [id number] (units unknown) (unknown) (unknown) (no date) (unknown) (unknown) Approved by: Vale Aden M.D. on 06/07/2022 at 14:37? (units unknown) (unknown) (unknown) (no date) (unknown) (unknown) Approved by: Fercho Khan M.D. on 06/04/2022 at 21:57 ? (units unknown) (unknown) (unknown) (no date) (unknown) (unknown) Assessment + Plan (u nits unknown) (unknown) (unknown) (no date) (unknown) (unknown) Assessment: (units unknown) (unknown) (unknown) (no date) (unknown) (unknown) Attending Dr: Dhiraj Daigle MD (units unknown) (unknown) (unknown) (no date) (unknown) (unknown) B/L S1 TFESI ( Dr. Blair) 05/26/2021 Improved pain for 1 month (units unknown) (unknown) (unknown) (no date) (unknown) (unknown) BMI 34.0 (units unknown) (unknown) (unknown) (no date) (unknown) (unknown) BP 120/70 (units unknown) (unknown) (unknown) (no date) (unknown) (unknown) Durga's Radha ngoing Downgoing (units unknown) (unknown) (unknown) (no date) (unknown) (unknown) Blood Pressure Location Rt brachial (units unknown) (unknown) (unknown) (no date) (unknown) (unknown) Bone Marrow:? Wedge-shaped compression fracture T12 without marrow edema or (units unknown) (unknown) (unknown) (no date) (unknown) (unknown) Bones:? 5 nhy-jeb-akvzhvh vertebrae are present.? Pedicle screw fixation at L3 (units unknown) (unknown) (unknown) (no date) (unknown) (unknown) Bowel and blad kael: No loss of control (units unknown) (unknown) (unknown) (no date) (unknown) (unknown) COMPARISON:? [facility], MR, MR LUMBAR SPINE WO CON, 03/09/2022, 20:09. (units unknown) (unknown) (unknown) (no date) (unknown) (unknown) COMPARISON:? [facility], CR, XR LUMBAR SPINE 2 OR 3 VIEWS, (units unknown) (unknown) (unknown) (no date) (unknown) (unknown) CONSULT TO DIS CUSS LOW BACK PAIN (units unknown) (unknown) (unknown) (no date) (unknown) (unknown) Cardiovascular : No edema or cyanosis. 2+ peripheral pulses (units unknown) (unknown) (unknown) (no date) (unknown) (unknown) Caudal No improvemen t (units unknown) (unknown) (unknown) (no date) (unknown) (unknown) Chart review: (units unknown) (unknown) (unknown) (no date) (unknown) (unknown) Chief Complaint (uni ts unknown) (unknown) (unknown) (no date) (unknown) (unknown) Chief Complain t: Low back and leg pain (units unknown) (unknown) (unknown) (no date) (unknown) (unknown) Chronic T12 compression fracture without retropulsed fracture fragment (units unknown) (unknown) (unknown) (no date) (unknown) (unknown) Clonus None None (un its unknown) (unknown) (unknown) (no date) (unknown) (unknown) Confirmed 06/14/22] (units unknown) (unknown) (unknown) (no date) (unknown) (unknown) Conservative management includes: (units unknown) (unknown) (unknown) (no date) (unknown) (unknown) : 5 Acct:[id number] (units unknown) (unknown) (unknown) (no date) (unknown) (unknown) 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 (units unknown) (unknown) (unknown) (no date) (unknown) (unknown) Details: (units unknown) (unknown) (unknown) (no date) (unknown) (unknown) Dictated by: Fercho Khan M.D. on 06/04/2022 at 21:55 ? ? (units unknown) (unknown) (unknown) (no date) (unknown) (unknown) Documented By: Dhiraj Daigle MD 06/14/22 1654 (units unknown) (unknown) (unknown) (no date) (unknown) (unknown) Duloxetine 60 mg (un its unknown) (unknown) (unknown) (no date) (unknown) (unknown) Exam Narrative (unit s unknown) (unknown) (unknown) (no date) (unknown) (unknown) Exam Narrative: (uni ts unknown) (unknown) (unknown) (no date) (unknown) (unknown) Exam (units unknown) (unknown) (unknown) (no date) (unknown) (unknown) FINDINGS:? (units unknown) (unknown) (unknown) (no date) (unknown) (unknown) Gait/Station - Non-antalgic gait. Heel (L5 strength) and toe (S1 strength) (units unknown) (unknown) (unknown) (no date) (unknown) (unknown) General: Well-nourished, well-developed, male in no acute distress (units unknown) (unknown) (unknown) (no date) (unknown) (unknown) HPI (units unknown) (unknown) (unknown) (no date) (unknown) (unknown) He has been fo llowed by Dr. Blair at [facility]. He had bilateral S1 (units unknown) (unknown) (unknown) (no date) (unknown) (unknown) He reports fal l approx 3 weeks ago due to a slip. He had increased pain from (units unknown) (unknown) (unknown) (no date) (unknown) (unknown) Height 6 ft (units unknown) (unknown) (unknown) (no date) (unknown) (unknown) IMPRESSION:? (units unknown) (unknown) (unknown) (no date) (unknown) (unknown) INDICATIONS:? New lower extremity weakness, pain exacerbation after twist (units unknown) (unknown) (unknown) (no date) (unknown) (unknown) INDICATIONS:? hx of multiple back surgeries with pain after fall (units unknown) (unknown) (unknown) (no date) (unknown) (unknown) Image quality: ? Excellent.? (units unknown) (unknown) (unknown) (no date) (unknown) (unknown) Injections: (units unknown) (unknown) (unknown) (no date) (unknown) (unknown) Intake Clinical Staf f (units unknown) (unknown) (unknown) (no date) (unknown) (unknown) Intake Note: (units unknown) (unknown) (unknown) (no date) (unknown) (unknown) Intake perform ed by: Paola Whitfield (units unknown) (unknown) (unknown) (no date) (unknown) (unknown) Intake (units unknown) (unknown) (unknown) (no date) (unknown) (unknown) Intervention: Date: Outcome: (units unknown) (unknown) (unknown) (no date) (unknown) (unknown) Is patient in pain?: Yes Pain scale (1-10): 8 (units unknown) (unknown) (unknown) (no date) (unknown) (unknown) Alyce Shanna loving, MR, MR LUMBAR SPINE WO CON, 03/09/2022, 20:09. (units unknown) (unknown) (unknown) (no date) (unknown) (unknown) JUSTIFICATION OF MEDICAL NECESSITY (units unknown) (unknown) (unknown) (no date) (unknown) (unknown) Kishor is a 47-y ear-old male presenting for further evaluation of chronic low back (units unknown) (unknown) (unknown) (no date) (unknown) (unknown) Kishor is a 47-y ear-old male with a history of chronic low back pain status post 3 (units unknown) (unknown) (unknown) (no date) (unknown) (unknown) L1-L2:? Disc s pace is preserved.? No central or foraminal stenosis (units unknown) (unknown) (unknown) (no date) (unknown) (unknown) L2 Hip Flexion 5/5 5/5? (units unknown) (unknown) (unknown) (no date) (unknown) (unknown) L2-L3:? Disc s pace narrowing and circumferential disc bulge results in moderate (units unknown) (unknown) (unknown) (no date) (unknown) (unknown) L3 Knee Extens ion 5/5 5/5 (units unknown) (unknown) (unknown) (no date) (unknown) (unknown) L3, L4 and L5 decompressive laminectomies with interbody fusion and posterior (units unknown) (unknown) (unknown) (no date) (unknown) (unknown) L3-L4:? Discec madonna and fusion with posterior decompression.? No central (units unknown) (unknown) (unknown) (no date) (unknown) (unknown) L4 Ankle Dorsi flexion 5/5 5/5 (units unknown) (unknown) (unknown) (no date) (unknown) (unknown) L4 Patella 1+ 1 (uni ts unknown) (unknown) (unknown) (no date) (unknown) (unknown) L4-L5:? Discec madonna and fusion with posterior decompression.? No central (units unknown) (unknown) (unknown) (no date) (unknown) (unknown) L5 Long Toe Ex tension 5/5 5/5 (units unknown) (unknown) (unknown) (no date) (unknown) (unknown) L5-S1:? Discec madonna and fusion with posterior decompression.? No central (units unknown) (unknown) (unknown) (no date) (unknown) (unknown) Lidoderm patch (unit s unknown) (unknown) (unknown) (no date) (unknown) (unknown) Lidoderm patch es we will also start tramadol for short-term use. He is (units unknown) (unknown) (unknown) (no date) (unknown) (unknown) Loc: PAIN (units unknown) (unknown) (unknown) (no date) (unknown) (unknown) Lower lumbar s pine interbody fusion, posterior decompression and (units unknown) (unknown) (unknown) (no date) (unknown) (unknown) Lumbar radiculopathy (units unknown) (unknown) (unknown) (no date) (unknown) (unknown) Lumbar spine f ixation appears stable. (units unknown) (unknown) (unknown) (no date) (unknown) (unknown) Lyrica 200 mg b.i.d. (units unknown) (unknown) (unknown) (no date) (unknown) (unknown) MSK: System re viewed and no additional complaints, except as documented. (units unknown) (unknown) (unknown) (no date) (unknown) (unknown) Medical Histor y (Updated 06/14/22 @ 13:03 by Dhiraj Daigle MD) (units unknown) (unknown) (unknown) (no date) (unknown) (unknown) Medications (units unknown) (unknown) (unknown) (no date) (unknown) (unknown) Medications: (units unknown) (unknown) (unknown) (no date) (unknown) (unknown) Moderate left and right foraminal stenosis (units unknown) (unknown) (unknown) (no date) (unknown) (unknown) Motor (units unknown) (unknown) (unknown) (no date) (unknown) (unknown) Musculoskeletal: (un its unknown) (unknown) (unknown) (no date) (unknown) (unknown) Neuro: System reviewed and no additional complaints, except as documented. (units unknown) (unknown) (unknown) (no date) (unknown) (unknown) Neurologic: (units unknown) (unknown) (unknown) (no date) (unknown) (unknown) New (units unknown) (unknown) (unknown) (no date) (unknown) (unknown) No suspicious bony lesions.? (units unknown) (unknown) (unknown) (no date) (unknown) (unknown) Noncontrast sa gittal T1 spin echo and T2 fast echo, sagittal STIR, and T2 fast (units unknown) (unknown) (unknown) (no date) (unknown) (unknown) Numbness/Tingling: ( units unknown) (unknown) (unknown) (no date) (unknown) (unknown) Objective Data (unit s unknown) (unknown) (unknown) (no date) (unknown) (unknown) Objective Data: (uni ts unknown) (unknown) (unknown) (no date) (unknown) (unknown) Onset/Context of parish n: (units unknown) (unknown) (unknown) (no date) (unknown) (unknown) Onset: insidio us, exacerbated by recent fall (units unknown) (unknown) (unknown) (no date) (unknown) (unknown) Orders (units unknown) (unknown) (unknown) (no date) (unknown) (unknown) Orders: (units unknown) (unknown) (unknown) (no date) (unknown) (unknown) Other interver tebral disc degeneration, lumbar region, M54.16 - Radiculopathy, (units unknown) (unknown) (unknown) (no date) (unknown) (unknown) Other: acupuncture ( units unknown) (unknown) (unknown) (no date) (unknown) (unknown) Oxygen Deliver y Method room air (units unknown) (unknown) (unknown) (no date) (unknown) (unknown) PAIN l/s trans keshia inject mio Today M54.16 - Radiculopathy, lumbar region (units unknown) (unknown) (unknown) (no date) (unknown) (unknown) PFSH (units unknown) (unknown) (unknown) (no date) (unknown) (unknown) PROCEDURE:? MR LUMBAR SPINE WO CON (units unknown) (unknown) (unknown) (no date) (unknown) (unknown) PROCEDURE:? XR LUMBAR SPINE 2-3V (units unknown) (unknown) (unknown) (no date) (unknown) (unknown) PT: Last PT wa s about 2 months ago in [place] (units unknown) (unknown) (unknown) (no date) (unknown) (unknown) Pain Scale (units unknown) (unknown) (unknown) (no date) (unknown) (unknown) Pain Visit (units unknown) (unknown) (unknown) (no date) (unknown) (unknown) Pain location/Radiation: Back - 'in my back'; Bilateral legs; squeezing of (units unknown) (unknown) (unknown) (no date) (unknown) (unknown) Pain ratin /10 today, 10/10 at worst (units unknown) (unknown) (unknown) (no date) (unknown) (unknown) Paraspinous So ft Tissues:? No paravertebral masses.? (units unknown) (unknown) (unknown) (no date) (unknown) (unknown) Patient's pain has been present for >6 weeks and is an average of >6/10 on 0-10 (units unknown) (unknown) (unknown) (no date) (unknown) (unknown) Patient: Kishor Carrasquillo MR#: [id number] (units unknown) (unknown) (unknown) (no date) (unknown) (unknown) Pertinent medi cations include: (units unknown) (unknown) (unknown) (no date) (unknown) (unknown) Plan (units unknown) (unknown) (unknown) (no date) (unknown) (unknown) Plan/Recommendations : (units unknown) (unknown) (unknown) (no date) (unknown) (unknown) Position Sitting (un its unknown) (unknown) (unknown) (no date) (unknown) (unknown) Previous pain treatments included: (units unknown) (unknown) (unknown) (no date) (unknown) (unknown) Psych: Appropr iate affect, answers questions appropriately (units unknown) (unknown) (unknown) (no date) (unknown) (unknown) Pulse 80 (units unknown) (unknown) (unknown) (no date) (unknown) (unknown) Pulse Oximetry (%) 9 7 (units unknown) (unknown) (unknown) (no date) (unknown) (unknown) Pulse Source Monitor (units unknown) (unknown) (unknown) (no date) (unknown) (unknown) Quality and ti gerri of pain: (units unknown) (unknown) (unknown) (no date) (unknown) (unknown) ROS Narrative (units unknown) (unknown) (unknown) (no date) (unknown) (unknown) ROS Narrative: (unit s unknown) (unknown) (unknown) (no date) (unknown) (unknown) ROS (units unknown) (unknown) (unknown) (no date) (unknown) (unknown) Reason For Visit (un its unknown) (unknown) (unknown) (no date) (unknown) (unknown) Red flag symptoms: ( units unknown) (unknown) (unknown) (no date) (unknown) (unknown) Referral Physi jesus Therapy M48.00 - Spinal stenosis, site unspecified, M51.36 (units unknown) (unknown) (unknown) (no date) (unknown) (unknown) Referrals (units unknown) (unknown) (unknown) (no date) (unknown) (unknown) Refilled (units unknown) (unknown) (unknown) (no date) (unknown) (unknown) Reflex Right Left (u nits unknown) (unknown) (unknown) (no date) (unknown) (unknown) Reflexes: (units unknown) (unknown) (unknown) (no date) (unknown) (unknown) Relieving fact ors include: changing positions, laying down (units unknown) (unknown) (unknown) (no date) (unknown) (unknown) Respiratory: Non-labored breathing pattern on RA. No respiratory distress (units unknown) (unknown) (unknown) (no date) (unknown) (unknown) Robaxin 750 mg (unit s unknown) (unknown) (unknown) (no date) (unknown) (unknown) S1 Achilles 1+ 1 (un its unknown) (unknown) (unknown) (no date) (unknown) (unknown) S1 Ankle Plantarflexion 5/5 5/5 (units unknown) (unknown) (unknown) (no date) (unknown) (unknown) S1 appears (units unknown) (unknown) (unknown) (no date) (unknown) (unknown) Saddle anesthe marina: denies (units unknown) (unknown) (unknown) (no date) (unknown) (unknown) Segment Action Right Left (units unknown) (unknown) (unknown) (no date) (unknown) (unknown) Segment Reflex Right Left (units unknown) (unknown) (unknown) (no date) (unknown) (unknown) Sensory -? Int act to light touch of bilateral lower extremities. Allodynia (units unknown) (unknown) (unknown) (no date) (unknown) (unknown) Signed By: <Electronically signed by Dhiraj Daigle MD> (units unknown) (unknown) (unknown) (no date) (unknown) (unknown) Signed (units unknown) (unknown) (unknown) (no date) (unknown) (unknown) Skin: No appre ciable rashes or skin breakdown (units unknown) (unknown) (unknown) (no date) (unknown) (unknown) Smoking Status : Never smoker (units unknown) (unknown) (unknown) (no date) (unknown) (unknown) Soft tissues:? Overlying bowel gas pattern is normal.? No suspicious soft tissue (units unknown) (unknown) (unknown) (no date) (unknown) (unknown) Spinal Cord:? Conus medullaris terminates at the L1 level.? Visualized cord (units unknown) (unknown) (unknown) (no date) (unknown) (unknown) Standing: incr eased leg and back pain (units unknown) (unknown) (unknown) (no date) (unknown) (unknown) Status: Acute (units unknown) (unknown) (unknown) (no date) (unknown) (unknown) Surgery: Annmarie nt is s/p L3-S1 posterior instrumented fusion in 2012 (units unknown) (unknown) (unknown) (no date) (unknown) (unknown) T12 compressio n fracture is unchanged. (units unknown) (unknown) (unknown) (no date) (unknown) (unknown) T12-L1:? Disc space is preserved.? No central or foraminal stenosis. (units unknown) (unknown) (unknown) (no date) (unknown) (unknown) TECHNIQUE:? 2 views of the lumbar spine were acquired.? (units unknown) (unknown) (unknown) (no date) (unknown) (unknown) TECHNIQUE:? (units unknown) (unknown) (unknown) (no date) (unknown) (unknown) Temp 98 F (units unknown) (unknown) (unknown) (no date) (unknown) (unknown) Temp Source Te mporal Artery Scan (units unknown) (unknown) (unknown) (no date) (unknown) (unknown) [facility] (units unknown) (unknown) (unknown) (no date) (unknown) (unknown) This note may have been all or partially generated using voice recognition (units unknown) (unknown) (unknown) (no date) (unknown) (unknown) Tobacco + Subs tance Use (units unknown) (unknown) (unknown) (no date) (unknown) (unknown) Tobacco Status (unit s unknown) (unknown) (unknown) (no date) (unknown) (unknown) Today I have r eviewed available medical information in the patient's medical (units unknown) (unknown) (unknown) (no date) (unknown) (unknown) Upper Motor Ne uron Signs: (units unknown) (unknown) (unknown) (no date) (unknown) (unknown) 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 (units unknown) (unknown) (unknown) (no date) (unknown) (unknown) We reviewed et iology, predisposing factor(s), natural course, imaging results as (units unknown) (unknown) (unknown) (no date) (unknown) (unknown) Weakness: denies (un its unknown) (unknown) (unknown) (no date) (unknown) (unknown) Weight 251 lb 4 oz ( units unknown) (unknown) (unknown) (no date) (unknown) (unknown) and a referral was placed to her auto in [place]. He requested a refill of (units unknown) (unknown) (unknown) (no date) (unknown) (unknown) at the time an d required transport. He was back up and walking the following (units unknown) (unknown) (unknown) (no date) (unknown) (unknown) benefits of [place] ri[place] treatment options were discussed with the patient in [facility] (units unknown) (unknown) (unknown) (no date) (unknown) (unknown) bilateral fora solo stenosis (units unknown) (unknown) (unknown) (no date) (unknown) (unknown) bilateral test icles R>L (units unknown) (unknown) (unknown) (no date) (unknown) (unknown) bowel/bladder dysfunction, and perineal numbness were discussed. The patient was (units unknown) (unknown) (unknown) (no date) (unknown) (unknown) calcifications.? (un its unknown) (unknown) (unknown) (no date) (unknown) (unknown) central stenosis. (u nits unknown) (unknown) (unknown) (no date) (unknown) (unknown) central stenos is.? Hypertrophic facet joints contribute to moderate bilateral (units unknown) (unknown) (unknown) (no date) (unknown) (unknown) change from (units unknown) (unknown) (unknown) (no date) (unknown) (unknown) claudication w benito presents for further evaluation of . (units unknown) (unknown) (unknown) (no date) (unknown) (unknown) compression fr acture, S1 radiculopathy, lumbar spinal stenosis with neurogenic (units unknown) (unknown) (unknown) (no date) (unknown) (unknown) currently bein g evaluated for spinal cord stimulator for chronic low back pain. (units unknown) (unknown) (unknown) (no date) (unknown) (unknown) day. He was no t admitted. He has a drop foot on the left. (units unknown) (unknown) (unknown) (no date) (unknown) (unknown) demonstrates (units unknown) (unknown) (unknown) (no date) (unknown) (unknown) detail. (units unknown) (unknown) (unknown) (no date) (unknown) (unknown) duloxetine 60 mg capsule,delayed release 60 mg PO DAILY 06/14/22 [History (units unknown) (unknown) (unknown) (no date) (unknown) (unknown) epidural stero id injection. He is also interested in starting physical therapy (units unknown) (unknown) (unknown) (no date) (unknown) (unknown) foraminal (units unknown) (unknown) (unknown) (no date) (unknown) (unknown) from prior exam (uni ts unknown) (unknown) (unknown) (no date) (unknown) (unknown) have occurred. If there are any questions, please contact the Medical Records (units unknown) (unknown) (unknown) (no date) (unknown) (unknown) history of low back pain including multiple lumbar spine operations as well as (units unknown) (unknown) (unknown) (no date) (unknown) (unknown) in his lower extremities. He was also referred to a spine surgeon who stated (units unknown) (unknown) (unknown) (no date) (unknown) (unknown) instructed to report to the Emergency department, if these symptoms occur. (units unknown) (unknown) (unknown) (no date) (unknown) (unknown) instructed to stop if any side effects. (units unknown) (unknown) (unknown) (no date) (unknown) (unknown) instrumentatio n, stable (units unknown) (unknown) (unknown) (no date) (unknown) (unknown) intravenous dr hernandez use, sustained glucocorticoid use, osteoporosis, or a focal (units unknown) (unknown) (unknown) (no date) (unknown) (unknown) leave on most painful area for up to 12 hrs 1 patch topical DAILY 30 ea 0RF (units unknown) (unknown) (unknown) (no date) (unknown) (unknown) lidocaine 5 % topical patch (Lidoderm) 1 patch topical DAILY #30 ea 06/14/22 [Rx (units unknown) (unknown) (unknown) (no date) (unknown) (unknown) lidocaine 5% (Lidoderm) (units unknown) (unknown) (unknown) (no date) (unknown) (unknown) lumbar region, M54.50 - Low back pain, unspecified (units unknown) (unknown) (unknown) (no date) (unknown) (unknown) lumbar spine operations including posterior instrumented fusion at L3-S1, T12 (units unknown) (unknown) (unknown) (no date) (unknown) (unknown) may be performed.? ( units unknown) (unknown) (unknown) (no date) (unknown) (unknown) may occur. Occ asional wrong-word or 'sound-alike' substitutions may have (units unknown) (unknown) (unknown) (no date) (unknown) (unknown) methocarbamol 750 mg tablet 750 mg PO Q8H PRN muscle pain #30 tabs 06/07/22 [Rx] (units unknown) (unknown) (unknown) (no date) (unknown) (unknown) milk Allergy ( Mild, Verified 06/14/22 10:52) (units unknown) (unknown) (unknown) (no date) (unknown) (unknown) multiple pain injections. He notes good relief after S1 transforaminal MARI in (units unknown) (unknown) (unknown) (no date) (unknown) (unknown) negative, Hype ralgesia - negative (units unknown) (unknown) (unknown) (no date) (unknown) (unknown) neurological d eficit with progressive or disabling symptoms. (units unknown) (unknown) (unknown) (no date) (unknown) (unknown) normal signal and size.? (units unknown) (unknown) (unknown) (no date) (unknown) (unknown) occurred due t o the inherent limitations of voice recognition software. Please (units unknown) (unknown) (unknown) (no date) (unknown) (unknown) of Spinal Cord Injur y) (units unknown) (unknown) (unknown) (no date) (unknown) (unknown) omeprazole 20 mg capsule,delayed release 20 mg PO DAILY 06/14/22 [History (units unknown) (unknown) (unknown) (no date) (unknown) (unknown) or immunosuppr essive therapy, previous or current cancer diagnosis, history of (units unknown) (unknown) (unknown) (no date) (unknown) (unknown) pain with radi ation to bilateral lower extremities. He has a complicated (units unknown) (unknown) (unknown) (no date) (unknown) (unknown) pregabalin 200 mg capsule 200 mg PO TID 06/14/22 [History Confirmed 06/14/22] (units unknown) (unknown) (unknown) (no date) (unknown) (unknown) read the note carefully and recognize, using context, where these substitutions (units unknown) (unknown) (unknown) (no date) (unknown) (unknown) record, includ ing relevant provider notes, laboratory work, and imaging. (units unknown) (unknown) (unknown) (no date) (unknown) (unknown) jules and (units unknown) (unknown) (unknown) (no date) (unknown) (unknown) scale and/or p ain interferes with ADLs. 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 (units unknown) (unknown) (unknown) (no date) (unknown) (unknown) severe (units unknown) (unknown) (unknown) (no date) (unknown) (unknown) show any acute change and hardware remained intact. He reports numbness/weakness (units unknown) (unknown) (unknown) (no date) (unknown) (unknown) software. Alth ough every effort is made to edit content, manager inside errors (units unknown) (unknown) (unknown) (no date) (unknown) (unknown) spin echo (units unknown) (unknown) (unknown) (no date) (unknown) (unknown) stability intact. (u nits unknown) (unknown) (unknown) (no date) (unknown) (unknown) stable.? 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 T12 compression fracture, (units unknown) (unknown) (unknown) (no date) (unknown) (unknown) stenosis (units unknown) (unknown) (unknown) (no date) (unknown) (unknown) stenosis.? Mild (uni ts unknown) (unknown) (unknown) (no date) (unknown) (unknown) stenosis.? (units unknown) (unknown) (unknown) (no date) (unknown) (unknown) that he may be a candidate for decompression fusion at L2-3 but recommended (units unknown) (unknown) (unknown) (no date) (unknown) (unknown) the past. He w ould likely benefit from a repeat bilateral S1 transforaminal (units unknown) (unknown) (unknown) (no date) (unknown) (unknown) the prior exam .? No retropulsed fracture fragment. (units unknown) (unknown) (unknown) (no date) (unknown) (unknown) therapeutic in jections and surgery. The risks, consequences, alternatives and (units unknown) (unknown) (unknown) (no date) (unknown) (unknown) therapy. ?A re ferral was provided for the patient. (units unknown) (unknown) (unknown) (no date) (unknown) (unknown) this. He treat ed with heat/cold and muscle relaxers. The pain worsened over (units unknown) (unknown) (unknown) (no date) (unknown) (unknown) through the tank mbar spine.? In cases with scoliosis, additional coronal T2 fast (units unknown) (unknown) (unknown) (no date) (unknown) (unknown) time. He has b een to the ED 3 times recently. MRI was repeated which did not (units unknown) (unknown) (unknown) (no date) (unknown) (unknown) to severe (units unknown) (unknown) (unknown) (no date) (unknown) (unknown) tramadol 50 mg PO TID PRN 30 tabs 1RF pain (units unknown) (unknown) (unknown) (no date) (unknown) (unknown) tramadol 50 mg tablet 50 mg PO TID PRN pain #30 tabs 06/14/22 [Rx Confirmed (units unknown) (unknown) (unknown) (no date) (unknown) (unknown) transforaminal MARI as were recommended by Dr. Blair but not performed. (units unknown) (unknown) (unknown) (no date) (unknown) (unknown) transforaminal MARI. He was referred to Neurology for electrodiagnostic studies (units unknown) (unknown) (unknown) (no date) (unknown) (unknown) transforaminal MARI. Risks and benefits were discussed. (units unknown) (unknown) (unknown) (no date) (unknown) (unknown) trial of lumba r epidural steroid injection at L2-3. Bilateral L2-3 (units unknown) (unknown) (unknown) (no date) (unknown) (unknown) unchanged.? (units unknown) (unknown) (unknown) (no date) (unknown) (unknown) walking intact . Tandem gait normal without evidence of ataxia. Lower quarter (units unknown) (unknown) (unknown) (no date) (unknown) (unknown) well as treatm ent options including medications, physical therapy/exercise, (units unknown) (unknown) Result panel 26 (unknown) (no date) (unknown) (unknown) (no value) (units unknown) (unknown) (unknown) (no date) (unknown) (unknown) 06/22/22 (units unknown) (unknown) (unknown) (no date) (unknown) (unknown) [address] [place] [address] (un its unknown) (unknown) (unknown) (no date) (unknown) (unknown) 1990 (units unknown) (unknown) (unknown) (no date) (unknown) (unknown) Accession Numb er: [id number] (units unknown) (unknown) (unknown) (no date) (unknown) (unknown) Age/Sex: 47 / M Date of Service: (units unknown) (unknown) (unknown) (no date) (unknown) (unknown) [place] [address] (units unknown) (unknown) (unknown) (no date) (unknown) (unknown) Approved by: Nadine Cook M.D. on 06/22/2022 at 14:42 (units unknown) (unknown) (unknown) (no date) (unknown) (unknown) COMPARISON: None. (u nits unknown) (unknown) (unknown) (no date) (unknown) (unknown) : 5 Acct:[id number] (units unknown) (unknown) (unknown) (no date) (unknown) (unknown) Dictated by: Nadine Cook M.D. on 06/22/2022 at 14:42 (units unknown) (unknown) (unknown) (no date) (unknown) (unknown) FINDINGS: Fluo roscopic images demonstrate injection at the levels of the S1 (units unknown) (unknown) (unknown) (no date) (unknown) (unknown) IMPRESSION: S1 facet joint injection. (units unknown) (unknown) (unknown) (no date) (unknown) (unknown) INDICATIONS: L UMBAR RADICULOPATHY (units unknown) (unknown) (unknown) (no date) (unknown) (unknown) [facility] (uni ts unknown) (unknown) (unknown) (no date) (unknown) (unknown) Loc: RAD (units unknown) (unknown) (unknown) (no date) (unknown) (unknown) Ordering Provi kael: Dhiraj Daigle MD (units unknown) (unknown) (unknown) (no date) (unknown) (unknown) PROCEDURE: PARISH N L/S TRANSFORAM INJECT MIO (units unknown) (unknown) (unknown) (no date) (unknown) (unknown) Patient: Kishor Carrasquillo MR#: [id number] (units unknown) (unknown) (unknown) (no date) (unknown) (unknown) Procedure: PARISH N l/s transforam inject mio (units unknown) (unknown) (unknown) (no date) (unknown) (unknown) Signed (units unknown) (unknown) (unknown) (no date) (unknown) (unknown) XRay Report (units unknown) (unknown) (unknown) (no date) (unknown) (unknown) facet joints. (units unknown) (unknown) Result panel 27 (unknown) (no date) (unknown) (unknown) (no value) (units unknown) (unknown) (unknown) (no date) (unknown) (unknown) 06/22/22 1158 (units unknown) (unknown) (unknown) (no date) (unknown) (unknown) 22 gauge 3.5 i [facility] needle was advanced to the superolateral border of the right (units unknown) (unknown) (unknown) (no date) (unknown) (unknown) 990 (units unknown) (unknown) (unknown) (no date) (unknown) (unknown) ASA: 2 (units unknown) (unknown) (unknown) (no date) (unknown) (unknown) Above procedur e was then repeated for the left S1 foramen. Band-Aids applied to (units unknown) (unknown) (unknown) (no date) (unknown) (unknown) Age/Sex: 47 / M (uni ts unknown) (unknown) (unknown) (no date) (unknown) (unknown) Anesthesia: Local (u nits unknown) (unknown) (unknown) (no date) (unknown) (unknown) Ax3 (units unknown) (unknown) (unknown) (no date) (unknown) (unknown) Bilateral S1 Transforaminal Epidural Steroid Injection (units unknown) (unknown) (unknown) (no date) (unknown) (unknown) Complications: None (units unknown) (unknown) (unknown) (no date) (unknown) (unknown) Consent: Follo wing review of allergies and potential side effects/complications, (units unknown) (unknown) (unknown) (no date) (unknown) (unknown) Contrast: Isovue 300 M (units unknown) (unknown) (unknown) (no date) (unknown) (unknown) : 5 Acct:[id number] (units unknown) (unknown) (unknown) (no date) (unknown) (unknown) Date of Servic e: 06/22/22 (units unknown) (unknown) (unknown) (no date) (unknown) (unknown) Date of proced ure: 06/22/22 (units unknown) (unknown) (unknown) (no date) (unknown) (unknown) Date/Time/Diagnoses (units unknown) (unknown) (unknown) (no date) (unknown) (unknown) EBL: less than 1 ml (units unknown) (unknown) (unknown) (no date) (unknown) (unknown) Focused Examination: (units unknown) (unknown) (unknown) (no date) (unknown) (unknown) Indications: Eduardo fernandez is presenting for treatment of lumbosacral radiculopathy with (units unknown) (unknown) (unknown) (no date) (unknown) (unknown) Injectate: 10 mg Dexamethasone mixed with 0.25% bupivacaine 1 ml and Normal (units unknown) (unknown) (unknown) (no date) (unknown) (unknown) [address] [address] (units unknown) (unknown) (unknown) (no date) (unknown) (unknown) Monitoring: NI BP, Pulse oximetry, 3 lead EKG (units unknown) (unknown) (unknown) (no date) (unknown) (unknown) Mood and affec t are normal (units unknown) (unknown) (unknown) (no date) (unknown) (unknown) Needle used: 2 2G, 3.5 inch spinal needle (units unknown) (unknown) (unknown) (no date) (unknown) (unknown) Patient: Kishor Carrasquillo MR#: [id number] (units unknown) (unknown) (unknown) (no date) (unknown) (unknown) Physician: Crow Daigle (units unknown) (unknown) (unknown) (no date) (unknown) (unknown) Position: Prone (uni ts unknown) (unknown) (unknown) (no date) (unknown) (unknown) Post Procedure : Patient was taken to the recovery and monitored. The patient was (units unknown) (unknown) (unknown) (no date) (unknown) (unknown) Postoperative diagnosis: Same (units unknown) (unknown) (unknown) (no date) (unknown) (unknown) Preoperative diagnosis: Bilateral lumbosacral radiculopathy (units unknown) (unknown) (unknown) (no date) (unknown) (unknown) Procedure Note (unit s unknown) (unknown) (unknown) (no date) (unknown) (unknown) Procedure Notes (uni ts unknown) (unknown) (unknown) (no date) (unknown) (unknown) Procedure in d etail + Post-procedure care: (units unknown) (unknown) (unknown) (no date) (unknown) (unknown) Provider: Dhiraj Daigle MD (units unknown) (unknown) (unknown) (no date) (unknown) (unknown) S1 foramen.? T he needle was advanced to the superolateral aspect of the neural (units unknown) (unknown) (unknown) (no date) (unknown) (unknown) Saline 1 ml per site (units unknown) (unknown) (unknown) (no date) (unknown) (unknown) Signed By:<Electronically signed by Dhiraj Daigle MD> (units unknown) (unknown) (unknown) (no date) (unknown) (unknown) Technique: The skin was prepped with chloraprep and draped in a sterile fashion. (units unknown) (unknown) (unknown) (no date) (unknown) (unknown) Time of proced ure: 11:30 (units unknown) (unknown) (unknown) (no date) (unknown) (unknown) Time out was p erformed as per protocol. Oxygen applied via NC. Skin and (units unknown) (unknown) (unknown) (no date) (unknown) (unknown) Total Fluorosc opy time (seconds): 28 (units unknown) (unknown) (unknown) (no date) (unknown) (unknown) Total sedation minutes: 0 (units unknown) (unknown) (unknown) (no date) (unknown) (unknown) Vital Signs: VSS (un its unknown) (unknown) (unknown) (no date) (unknown) (unknown) foramen under lateral view.?AP views were rechecked. No paresthesias noted by (units unknown) (unknown) (unknown) (no date) (unknown) (unknown) including medi cations and physical therapy were reviewed with the patient. All (units unknown) (unknown) (unknown) (no date) (unknown) (unknown) including, but not necessarily limited to, infection, allergic reaction, local (units unknown) (unknown) (unknown) (no date) (unknown) (unknown) injectate was then administered, and the needle was subsequently withdrawn. (units unknown) (unknown) (unknown) (no date) (unknown) (unknown) injection sites. (un its unknown) (unknown) (unknown) (no date) (unknown) (unknown) instructions w ere provided. Patient was asked to call in the event of worsening (units unknown) (unknown) (unknown) (no date) (unknown) (unknown) lidocaine 1%. Under fluoroscopic guidance, using an ipsilateral oblique view,?a (units unknown) (unknown) (unknown) (no date) (unknown) (unknown) low back and leg parish n. (units unknown) (unknown) (unknown) (no date) (unknown) (unknown) nurse and plac ed in the patient's chart.? Additionally, other treatment options (units unknown) (unknown) (unknown) (no date) (unknown) (unknown) observed witho ut evidence for intravascular nor intrathecal uptake. The above (units unknown) (unknown) (unknown) (no date) (unknown) (unknown) pain, fever, w eakness, numbness or bladder or bowel incontinence. (units unknown) (unknown) (unknown) (no date) (unknown) (unknown) physician. Priscila ient was stable upon discharge. Detailed post procedure (units unknown) (unknown) (unknown) (no date) (unknown) (unknown) possible , the patient indicated that they understood and agreed to (units unknown) (unknown) (unknown) (no date) (unknown) (unknown) proceed.? An i nformed consent document was signed by the patient, witnessed by a (units unknown) (unknown) (unknown) (no date) (unknown) (unknown) provided a Parish n Log to continue to record the patient's response to the target (units unknown) (unknown) (unknown) (no date) (unknown) (unknown) questions were answered. Site was then marked. (units unknown) (unknown) (unknown) (no date) (unknown) (unknown) specific proce dure prior to the patient's follow-up visit with the referring (units unknown) (unknown) (unknown) (no date) (unknown) (unknown) subcutaneous structures of the needle entry site were infiltrated with 3mL of (units unknown) (unknown) (unknown) (no date) (unknown) (unknown) subtraction fluoroscopy, 2 ml contrast was slowly injected. Epidural spread was (units unknown) (unknown) (unknown) (no date) (unknown) (unknown) the patient du ring needle placement. In AP view and utilizing real-time digital (units unknown) (unknown) (unknown) (no date) (unknown) (unknown) tissue breakdo wn, stroke, temporary or permanent nerve injury, paralysis, and (units unknown) (unknown) Result panel 28 (unknown) (no date) (unknown) (unknown) (no value) (units unknown) (unknown) (unknown) (no date) (unknown) (unknown) (Lidoderm) (units unknown) (unknown) (unknown) (no date) (unknown) (unknown) 00:31 06/24/22 (unit s unknown) (unknown) (unknown) (no date) (unknown) (unknown) 01:53 (units unknown) (unknown) (unknown) (no date) (unknown) (unknown) 01:56 06/24/22 (unit s unknown) (unknown) (unknown) (no date) (unknown) (unknown) 02:00 06/24/22 (unit s unknown) (unknown) (unknown) (no date) (unknown) (unknown) 02:00 (units unknown) (unknown) (unknown) (no date) (unknown) (unknown) 02:30 06/24/22 (unit s unknown) (unknown) (unknown) (no date) (unknown) (unknown) 02:30 (units unknown) (unknown) (unknown) (no date) (unknown) (unknown) 03:00 06/24/22 (unit s unknown) (unknown) (unknown) (no date) (unknown) (unknown) 03:30 (units unknown) (unknown) (unknown) (no date) (unknown) (unknown) 06/23/22 (units unknown) (unknown) (unknown) (no date) (unknown) (unknown) 06/24/22 (units unknown) (unknown) (unknown) (no date) (unknown) (unknown) 1 patch topica l DAILY Qty: 30 0RF (units unknown) (unknown) (unknown) (no date) (unknown) (unknown) 20 mg PO DAILY (unit s unknown) (unknown) (unknown) (no date) (unknown) (unknown) 200 mg PO TID (units unknown) (unknown) (unknown) (no date) (unknown) (unknown) 22:18 06/24/22 (unit s unknown) (unknown) (unknown) (no date) (unknown) (unknown) 50 mg PO TID P RN (Reason: pain) Qty: 30 1RF (units unknown) (unknown) (unknown) (no date) (unknown) (unknown) 60 mg PO DAILY (unit s unknown) (unknown) (unknown) (no date) (unknown) (unknown) 750 mg PO Q8H PRN (Reason: muscle pain) Qty: 30 0RF (units unknown) (unknown) (unknown) (no date) (unknown) (unknown) 990 (units unknown) (unknown) (unknown) (no date) (unknown) (unknown) Age/Sex: 47 / M (uni ts unknown) (unknown) (unknown) (no date) (unknown) (unknown) Allergies (units unknown) (unknown) (unknown) (no date) (unknown) (unknown) Allergy/AdvRea c Type Severity Reaction Status Date / Time (units unknown) (unknown) (unknown) (no date) (unknown) (unknown) Blood Pressure 105/71 115/69 (units unknown) (unknown) (unknown) (no date) (unknown) (unknown) Blood Pressure 117/91 H 118/91 H (units unknown) (unknown) (unknown) (no date) (unknown) (unknown) Blood Pressure 125/8 1 (units unknown) (unknown) (unknown) (no date) (unknown) (unknown) Blood Pressure 130/86 06/23/22 22:18 (units unknown) (unknown) (unknown) (no date) (unknown) (unknown) Blood Pressure 130/86 123/82 (units unknown) (unknown) (unknown) (no date) (unknown) (unknown) Blood Pressure (unit s unknown) (unknown) (unknown) (no date) (unknown) (unknown) Chief Complain t: Back Pain/Injury (units unknown) (unknown) (unknown) (no date) (unknown) (unknown) Course (units unknown) (unknown) (unknown) (no date) (unknown) (unknown) : 5 Acct:[id number] (units unknown) (unknown) (unknown) (no date) (unknown) (unknown) Date of Servic e: 06/23/22 (units unknown) (unknown) (unknown) (no date) (unknown) (unknown) Departure (units unknown) (unknown) (unknown) (no date) (unknown) (unknown) Discharge Plan (unit s unknown) (unknown) (unknown) (no date) (unknown) (unknown) ER Physician: Tari Dempsey D.O. (units unknown) (unknown) (unknown) (no date) (unknown) (unknown) Emergency Report (un its unknown) (unknown) (unknown) (no date) (unknown) (unknown) Exam (units unknown) (unknown) (unknown) (no date) (unknown) (unknown) General (units unknown) (unknown) (unknown) (no date) (unknown) (unknown) HPI - Back Pain/Inju ry (units unknown) (unknown) (unknown) (no date) (unknown) (unknown) Home Medications (un its unknown) (unknown) (unknown) (no date) (unknown) (unknown) Initial Vital Signs (units unknown) (unknown) (unknown) (no date) (unknown) (unknown) Initial Vital Signs: (units unknown) (unknown) (unknown) (no date) (unknown) (unknown) [address] [address] (units unknown) (unknown) (unknown) (no date) (unknown) (unknown) Lumbar radiculopathy (units unknown) (unknown) (unknown) (no date) (unknown) (unknown) Medical Histor y (Updated 06/22/22 @ 00:01 by ) (units unknown) (unknown) (unknown) (no date) (unknown) (unknown) Medication Instructions Recorded Confirmed (units unknown) (unknown) (unknown) (no date) (unknown) (unknown) Medication Instructions Recorded (units unknown) (unknown) (unknown) (no date) (unknown) (unknown) Miscellaneous, Doctor, MD [Primary Care Provider] (units unknown) (unknown) (unknown) (no date) (unknown) (unknown) No Action (units unknown) (unknown) (unknown) (no date) (unknown) (unknown) Oxygen Deliver y Method Room Air 06/23/22 22:18 (units unknown) (unknown) (unknown) (no date) (unknown) (unknown) Oxygen Deliver y Method Room Air Room Air (units unknown) (unknown) (unknown) (no date) (unknown) (unknown) Oxygen Deliver y Method Room Air (units unknown) (unknown) (unknown) (no date) (unknown) (unknown) Oxygen Delivery Meth od (units unknown) (unknown) (unknown) (no date) (unknown) (unknown) Patient Comments: (u nits unknown) (unknown) (unknown) (no date) (unknown) (unknown) Patient History (uni ts unknown) (unknown) (unknown) (no date) (unknown) (unknown) Patient: Kishor Carrasquillo MR#: [id number] (units unknown) (unknown) (unknown) (no date) (unknown) (unknown) Prescriptions: (unit s unknown) (unknown) (unknown) (no date) (unknown) (unknown) Previous Rx's (units unknown) (unknown) (unknown) (no date) (unknown) (unknown) Pulse Oximetry 100 9 9 (units unknown) (unknown) (unknown) (no date) (unknown) (unknown) Pulse Oximetry 100 ( units unknown) (unknown) (unknown) (no date) (unknown) (unknown) Pulse Oximetry 97 (u nits unknown) (unknown) (unknown) (no date) (unknown) (unknown) Pulse Oximetry 98 06/23/22 22:18 (units unknown) (unknown) (unknown) (no date) (unknown) (unknown) Pulse Oximetry 98 99 94 (units unknown) (unknown) (unknown) (no date) (unknown) (unknown) Pulse Rate 57 L (uni ts unknown) (unknown) (unknown) (no date) (unknown) (unknown) Pulse Rate 60 (units unknown) (unknown) (unknown) (no date) (unknown) (unknown) Pulse Rate 73 67 (un its unknown) (unknown) (unknown) (no date) (unknown) (unknown) Pulse Rate 73 (units unknown) (unknown) (unknown) (no date) (unknown) (unknown) Pulse Rate 98 H 06/23/22 22:18 (units unknown) (unknown) (unknown) (no date) (unknown) (unknown) Pulse Rate 98 H 90 6 5 (units unknown) (unknown) (unknown) (no date) (unknown) (unknown) Referrals: (units unknown) (unknown) (unknown) (no date) (unknown) (unknown) Related Data (units unknown) (unknown) (unknown) (no date) (unknown) (unknown) Respiratory Rate 18 (units unknown) (unknown) (unknown) (no date) (unknown) (unknown) Respiratory Ra te 20 06/23/22 22:18 (units unknown) (unknown) (unknown) (no date) (unknown) (unknown) Respiratory Rate 20 20 (units unknown) (unknown) (unknown) (no date) (unknown) (unknown) Respiratory Rate (un its unknown) (unknown) (unknown) (no date) (unknown) (unknown) Rx Instructions: (un its unknown) (unknown) (unknown) (no date) (unknown) (unknown) Signed By: (units unknown) (unknown) (unknown) (no date) (unknown) (unknown) Smoking Status : Never smoker (units unknown) (unknown) (unknown) (no date) (unknown) (unknown) Social History (units unknown) (unknown) (unknown) (no date) (unknown) (unknown) Source: patient (uni ts unknown) (unknown) (unknown) (no date) (unknown) (unknown) Stated Complai nt: Back pain (units unknown) (unknown) (unknown) (no date) (unknown) (unknown) Substance Use Type: does not use (units unknown) (unknown) (unknown) (no date) (unknown) (unknown) TAKE ONE CAPSU LE BY MOUTH THREE TIMES DAILY (units unknown) (unknown) (unknown) (no date) (unknown) (unknown) Temperature 98 .1 F 06/23/22 22:18 (units unknown) (unknown) (unknown) (no date) (unknown) (unknown) Temperature 98.1 F ( units unknown) (unknown) (unknown) (no date) (unknown) (unknown) Temperature (units unknown) (unknown) (unknown) (no date) (unknown) (unknown) Time Seen by Wesley gann: 06/24/22 04:15 (units unknown) (unknown) (unknown) (no date) (unknown) (unknown) Vital Signs - 8 hr ( units unknown) (unknown) (unknown) (no date) (unknown) (unknown) Vital Signs (units unknown) (unknown) (unknown) (no date) (unknown) (unknown) Vital signs: (units unknown) (unknown) (unknown) (no date) (unknown) (unknown) alcohol intake frequency: 0-2 drinks per day (units unknown) (unknown) (unknown) (no date) (unknown) (unknown) duloxetine 60 mg capsule,delayed 60 mg PO DAILY 06/14/22 06/14/22 (units unknown) (unknown) (unknown) (no date) (unknown) (unknown) duloxetine 60 mg capsule,delayed release(DR/EC) (units unknown) (unknown) (unknown) (no date) (unknown) (unknown) leave on most painful area for up to 12 hrs (units unknown) (unknown) (unknown) (no date) (unknown) (unknown) lidocaine 5 % topical patch 1 patch topical DAILY #30 ea 06/14/22 (units unknown) (unknown) (unknown) (no date) (unknown) (unknown) lidocaine [Lid oderm] 5 % adhesive patch,medicated (units unknown) (unknown) (unknown) (no date) (unknown) (unknown) methocarbamol 750 mg tablet 750 mg PO Q8H PRN muscle pain #30 06/07/22 (units unknown) (unknown) (unknown) (no date) (unknown) (unknown) methocarbamol 750 mg tablet (units unknown) (unknown) (unknown) (no date) (unknown) (unknown) milk Allergy M ild Verified 06/23/22 22:24 (units unknown) (unknown) (unknown) (no date) (unknown) (unknown) omeprazole 20 mg capsule,delayed 20 mg PO DAILY 06/14/22 06/14/22 (units unknown) (unknown) (unknown) (no date) (unknown) (unknown) omeprazole 20 mg capsule,delayed release(DR/EC) (units unknown) (unknown) (unknown) (no date) (unknown) (unknown) pregabalin 200 mg capsule 200 mg PO TID 06/14/22 06/14/22 (units unknown) (unknown) (unknown) (no date) (unknown) (unknown) pregabalin 200 mg capsule (units unknown) (unknown) (unknown) (no date) (unknown) (unknown) release (units unknown) (unknown) (unknown) (no date) (unknown) (unknown) tabs (units unknown) (unknown) (unknown) (no date) (unknown) (unknown) tramadol 50 mg tablet 50 mg PO TID PRN pain #30 tabs 06/14/22 (units unknown) (unknown) (unknown) (no date) (unknown) (unknown) tramadol 50 mg table t (units unknown) (unknown) Result panel 29 (unknown) (no date) (unknown) (unknown) (no value) (units unknown) (unknown) (unknown) (no date) (unknown) (unknown) (Lidoderm) (units unknown) (unknown) (unknown) (no date) (unknown) (unknown) *Continue to t madonna medications as directed (units unknown) (unknown) (unknown) (no date) (unknown) (unknown) *Follow up wit h your primary care provider in 2-3 days or call [phone] (units unknown) (unknown) (unknown) (no date) (unknown) (unknown) *Return to ER if you should have increasing pain fever weakness in legs loss of (units unknown) (unknown) (unknown) (no date) (unknown) (unknown) *What to do: A t this time you will need to follow-up with pain management in (units unknown) (unknown) (unknown) (no date) (unknown) (unknown) *You have been diagnosed with lumbar radiculopathy (units unknown) (unknown) (unknown) (no date) (unknown) (unknown) 00:31 06/24/22 (unit s unknown) (unknown) (unknown) (no date) (unknown) (unknown) 01:53 (units unknown) (unknown) (unknown) (no date) (unknown) (unknown) 01:56 06/24/22 (unit s unknown) (unknown) (unknown) (no date) (unknown) (unknown) 02:00 06/24/22 (unit s unknown) (unknown) (unknown) (no date) (unknown) (unknown) 02:00 (units unknown) (unknown) (unknown) (no date) (unknown) (unknown) 02:30 06/24/22 (unit s unknown) (unknown) (unknown) (no date) (unknown) (unknown) 02:30 (units unknown) (unknown) (unknown) (no date) (unknown) (unknown) 03:00 06/24/22 (unit s unknown) (unknown) (unknown) (no date) (unknown) (unknown) 03:30 (units unknown) (unknown) (unknown) (no date) (unknown) (unknown) 06/23/22 (units unknown) (unknown) (unknown) (no date) (unknown) (unknown) 06/24/22 (units unknown) (unknown) (unknown) (no date) (unknown) (unknown) 1 patch topica l DAILY Qty: 30 0RF (units unknown) (unknown) (unknown) (no date) (unknown) (unknown) 20 mg PO DAILY (unit s unknown) (unknown) (unknown) (no date) (unknown) (unknown) 200 mg PO TID (units unknown) (unknown) (unknown) (no date) (unknown) (unknown) 22:18 06/24/22 (unit s unknown) (unknown) (unknown) (no date) (unknown) (unknown) 50 mg PO TID P RN (Reason: pain) Qty: 30 1RF (units unknown) (unknown) (unknown) (no date) (unknown) (unknown) 60 mg PO DAILY (unit s unknown) (unknown) (unknown) (no date) (unknown) (unknown) 750 mg PO Q8H PRN (Reason: muscle pain) Qty: 30 0RF (units unknown) (unknown) (unknown) (no date) (unknown) (unknown) 990 (units unknown) (unknown) (unknown) (no date) (unknown) (unknown) Activity Restrictions/Additiona l Instructions: (units unknown) (unknown) (unknown) (no date) (unknown) (unknown) Age/Sex: 47 / M (uni ts unknown) (unknown) (unknown) (no date) (unknown) (unknown) Allergies (units unknown) (unknown) (unknown) (no date) (unknown) (unknown) Allergy/AdvRea c Type Severity Reaction Status Date / Time (units unknown) (unknown) (unknown) (no date) (unknown) (unknown) BACK: No verte bral tenderness no step-off he is having left flank paraspinal (units unknown) (unknown) (unknown) (no date) (unknown) (unknown) Blood Pressure 105/71 115/69 (units unknown) (unknown) (unknown) (no date) (unknown) (unknown) Blood Pressure 117/91 H 118/91 H (units unknown) (unknown) (unknown) (no date) (unknown) (unknown) Blood Pressure 125/8 1 (units unknown) (unknown) (unknown) (no date) (unknown) (unknown) Blood Pressure 130/86 06/23/22 22:18 (units unknown) (unknown) (unknown) (no date) (unknown) (unknown) Blood Pressure 130/86 123/82 (units unknown) (unknown) (unknown) (no date) (unknown) (unknown) Blood Pressure (unit s unknown) (unknown) (unknown) (no date) (unknown) (unknown) CARDIOVASCULAR : peripheral pulses in tact, cap refill <2 sec (units unknown) (unknown) (unknown) (no date) (unknown) (unknown) Chief Complain t: Back Pain/Injury (units unknown) (unknown) (unknown) (no date) (unknown) (unknown) Clinical Impression: (units unknown) (unknown) (unknown) (no date) (unknown) (unknown) Course (units unknown) (unknown) (unknown) (no date) (unknown) (unknown) : 5 Acct:[id number] (units unknown) (unknown) (unknown) (no date) (unknown) (unknown) Date of Servic e: 06/23/22 (units unknown) (unknown) (unknown) (no date) (unknown) (unknown) Departure (units unknown) (unknown) (unknown) (no date) (unknown) (unknown) Discharge Plan (unit s unknown) (unknown) (unknown) (no date) (unknown) (unknown) ER Physician: Tari Dempsey D.O. (units unknown) (unknown) (unknown) (no date) (unknown) (unknown) EXTREMITIES: N ormal range of motion, no clubbing or edema. Neurovascularly (units unknown) (unknown) (unknown) (no date) (unknown) (unknown) Emergency Report (un its unknown) (unknown) (unknown) (no date) (unknown) (unknown) Exam (units unknown) (unknown) (unknown) (no date) (unknown) (unknown) GENERAL: Alert 47 year sleeping easily arousable (units unknown) (unknown) (unknown) (no date) (unknown) (unknown) General (units unknown) (unknown) (unknown) (no date) (unknown) (unknown) HPI - Back Pain/Inju ry (units unknown) (unknown) (unknown) (no date) (unknown) (unknown) HPI Narrative: (unit s unknown) (unknown) (unknown) (no date) (unknown) (unknown) History of Pre sent Illness (units unknown) (unknown) (unknown) (no date) (unknown) (unknown) Home Medications (un its unknown) (unknown) (unknown) (no date) (unknown) (unknown) Initial Vital Signs (units unknown) (unknown) (unknown) (no date) (unknown) (unknown) Initial Vital Signs: (units unknown) (unknown) (unknown) (no date) (unknown) (unknown) Instructions: DI for Low Back Pain (units unknown) (unknown) (unknown) (no date) (unknown) (unknown) [address] [address] (units unknown) (unknown) (unknown) (no date) (unknown) (unknown) Dhiraj Daigle MD [Physician] (units unknown) (unknown) (unknown) (no date) (unknown) (unknown) Lumbar radiculopathy (units unknown) (unknown) (unknown) (no date) (unknown) (unknown) MDM - Back Pain/Inju ry (units unknown) (unknown) (unknown) (no date) (unknown) (unknown) MDM Narrative (units unknown) (unknown) (unknown) (no date) (unknown) (unknown) Medical Histor y (units unknown) (unknown) (unknown) (no date) (unknown) (unknown) Medical decisi on making narrative: (units unknown) (unknown) (unknown) (no date) (unknown) (unknown) Medication Instructions Recorded Confirmed (units unknown) (unknown) (unknown) (no date) (unknown) (unknown) Medication Instructions Recorded (units unknown) (unknown) (unknown) (no date) (unknown) (unknown) Miscellaneous, MD Rebeca [Primary Care Provider] (units unknown) (unknown) (unknown) (no date) (unknown) (unknown) NEUROLOGICAL: Cranial nerves II through XII grossly intact. Normal gait and (units unknown) (unknown) (unknown) (no date) (unknown) (unknown) No Action (units unknown) (unknown) (unknown) (no date) (unknown) (unknown) No change in b owel or bladder habits he no leg weakness. He says that he was (units unknown) (unknown) (unknown) (no date) (unknown) (unknown) Oxygen Deliver y Method Room Air 06/23/22 22:18 (units unknown) (unknown) (unknown) (no date) (unknown) (unknown) Oxygen Deliver y Method Room Air Room Air (units unknown) (unknown) (unknown) (no date) (unknown) (unknown) Oxygen Deliver y Method Room Air (units unknown) (unknown) (unknown) (no date) (unknown) (unknown) Oxygen Delivery Meth od (units unknown) (unknown) (unknown) (no date) (unknown) (unknown) Patient 39-yea r-old male with acute on chronic back pain with recent epidural (units unknown) (unknown) (unknown) (no date) (unknown) (unknown) Patient Comments: (u nits unknown) (unknown) (unknown) (no date) (unknown) (unknown) Patient Dispos ition: Home (units unknown) (unknown) (unknown) (no date) (unknown) (unknown) Patient History (uni ts unknown) (unknown) (unknown) (no date) (unknown) (unknown) Patient is a 47-year-old male who has acute on chronic back pain. He says that (units unknown) (unknown) (unknown) (no date) (unknown) (unknown) Patient: Kishor Carrasquillo MR#: [id number] (units unknown) (unknown) (unknown) (no date) (unknown) (unknown) Please follow- up with orthopedics as well (units unknown) (unknown) (unknown) (no date) (unknown) (unknown) Prescriptions: (unit s unknown) (unknown) (unknown) (no date) (unknown) (unknown) Previous Rx's (units unknown) (unknown) (unknown) (no date) (unknown) (unknown) Pulse Oximetry 100 9 9 (units unknown) (unknown) (unknown) (no date) (unknown) (unknown) Pulse Oximetry 100 ( units unknown) (unknown) (unknown) (no date) (unknown) (unknown) Pulse Oximetry 97 (u nits unknown) (unknown) (unknown) (no date) (unknown) (unknown) Pulse Oximetry 98 06/23/22 22:18 (units unknown) (unknown) (unknown) (no date) (unknown) (unknown) Pulse Oximetry 98 99 94 (units unknown) (unknown) (unknown) (no date) (unknown) (unknown) Pulse Rate 57 L (uni ts unknown) (unknown) (unknown) (no date) (unknown) (unknown) Pulse Rate 60 (units unknown) (unknown) (unknown) (no date) (unknown) (unknown) Pulse Rate 73 67 (un its unknown) (unknown) (unknown) (no date) (unknown) (unknown) Pulse Rate 73 (units unknown) (unknown) (unknown) (no date) (unknown) (unknown) Pulse Rate 98 H 06/23/22 22:18 (units unknown) (unknown) (unknown) (no date) (unknown) (unknown) Pulse Rate 98 H 90 6 5 (units unknown) (unknown) (unknown) (no date) (unknown) (unknown) RESPIRATORY: N o respiratory distress, speaks in full sentences without (units unknown) (unknown) (unknown) (no date) (unknown) (unknown) ROS Unobtainab le: All systems reviewed + are unremarkable except as noted in HPI (units unknown) (unknown) (unknown) (no date) (unknown) (unknown) Referrals: (units unknown) (unknown) (unknown) (no date) (unknown) (unknown) Related Data (units unknown) (unknown) (unknown) (no date) (unknown) (unknown) Respiratory Rate 18 (units unknown) (unknown) (unknown) (no date) (unknown) (unknown) Respiratory Ra te 20 06/23/22 22:18 (units unknown) (unknown) (unknown) (no date) (unknown) (unknown) Respiratory Rate 20 20 (units unknown) (unknown) (unknown) (no date) (unknown) (unknown) Respiratory Rate (un its unknown) (unknown) (unknown) (no date) (unknown) (unknown) Review of Systems (u nits unknown) (unknown) (unknown) (no date) (unknown) (unknown) Rx Instructions: (un its unknown) (unknown) (unknown) (no date) (unknown) (unknown) SKIN: Warm, dr y, no petechiae, no rashes or lesions. (units unknown) (unknown) (unknown) (no date) (unknown) (unknown) Signed By: (units unknown) (unknown) (unknown) (no date) (unknown) (unknown) Smoking Status : Never smoker (units unknown) (unknown) (unknown) (no date) (unknown) (unknown) Social History (units unknown) (unknown) (unknown) (no date) (unknown) (unknown) Source: patient (uni ts unknown) (unknown) (unknown) (no date) (unknown) (unknown) Stand Alone Fo [place]: Patient Portal/API (units unknown) (unknown) (unknown) (no date) (unknown) (unknown) Stated Complai nt: Back pain (units unknown) (unknown) (unknown) (no date) (unknown) (unknown) Substance Use Type: does not use (units unknown) (unknown) (unknown) (no date) (unknown) (unknown) TAKE ONE CAPSU LE BY MOUTH THREE TIMES DAILY (units unknown) (unknown) (unknown) (no date) (unknown) (unknown) Temperature 98 .1 F 06/23/22 22:18 (units unknown) (unknown) (unknown) (no date) (unknown) (unknown) Temperature 98.1 F ( units unknown) (unknown) (unknown) (no date) (unknown) (unknown) Temperature (units unknown) (unknown) (unknown) (no date) (unknown) (unknown) Time Seen by Wesley gann: 06/24/22 04:15 (units unknown) (unknown) (unknown) (no date) (unknown) (unknown) Vital Signs - 8 hr ( units unknown) (unknown) (unknown) (no date) (unknown) (unknown) Vital Signs (units unknown) (unknown) (unknown) (no date) (unknown) (unknown) Vital signs: (units unknown) (unknown) (unknown) (no date) (unknown) (unknown) abscess. He queen s some pain medication at home he is requesting some more. We (units unknown) (unknown) (unknown) (no date) (unknown) (unknown) alcohol intake frequency: 0-2 drinks per day (units unknown) (unknown) (unknown) (no date) (unknown) (unknown) and below (units unknown) (unknown) (unknown) (no date) (unknown) (unknown) and that seeme d to help the most. (units unknown) (unknown) (unknown) (no date) (unknown) (unknown) canal stenosis at L2-L3. He was seen by pain management on June 22 when he (units unknown) (unknown) (unknown) (no date) (unknown) (unknown) did get 1 chec k of Dilaudid. I hope that this helps makes you feel better. (units unknown) (unknown) (unknown) (no date) (unknown) (unknown) did have a conversation how he will have to talk to his primary care or pain (units unknown) (unknown) (unknown) (no date) (unknown) (unknown) difficulty (units unknown) (unknown) (unknown) (no date) (unknown) (unknown) duloxetine 60 mg capsule,delayed 60 mg PO DAILY 06/14/22 06/14/22 (units unknown) (unknown) (unknown) (no date) (unknown) (unknown) duloxetine 60 mg capsule,delayed release(DR/EC) (units unknown) (unknown) (unknown) (no date) (unknown) (unknown) emergency depa rtment with show degenerative disc disease and severe central (units unknown) (unknown) (unknown) (no date) (unknown) (unknown) given oxycodon e he still has a couple home he is only taking 1 time it does not (units unknown) (unknown) (unknown) (no date) (unknown) (unknown) had a epidural steroid injection. Patient is complaining of left flank pain. (units unknown) (unknown) (unknown) (no date) (unknown) (unknown) he is had 4 ba ck surgerys. He actually had an MRI without contrast in the (units unknown) (unknown) (unknown) (no date) (unknown) (unknown) injection on A pri. He has no neurologic deficits no saddle anesthesia no (units unknown) (unknown) (unknown) (no date) (unknown) (unknown) intact sensati on in lower extremities intact (units unknown) (unknown) (unknown) (no date) (unknown) (unknown) leave on most painful area for up to 12 hrs (units unknown) (unknown) (unknown) (no date) (unknown) (unknown) lidocaine 5 % topical patch 1 patch topical DAILY #30 ea 06/14/22 (units unknown) (unknown) (unknown) (no date) (unknown) (unknown) lidocaine [Lid oderm] 5 % adhesive patch,medicated (units unknown) (unknown) (unknown) (no date) (unknown) (unknown) management. He is requesting a shot of Dilaudid which he received previously (units unknown) (unknown) (unknown) (no date) (unknown) (unknown) methocarbamol 750 mg tablet 750 mg PO Q8H PRN muscle pain #30 06/07/22 (units unknown) (unknown) (unknown) (no date) (unknown) (unknown) methocarbamol 750 mg tablet (units unknown) (unknown) (unknown) (no date) (unknown) (unknown) milk Allergy M ild Verified 06/23/22 22:24 (units unknown) (unknown) (unknown) (no date) (unknown) (unknown) omeprazole 20 mg capsule,delayed 20 mg PO DAILY 06/14/22 06/14/22 (units unknown) (unknown) (unknown) (no date) (unknown) (unknown) omeprazole 20 mg capsule,delayed release(DR/EC) (units unknown) (unknown) (unknown) (no date) (unknown) (unknown) pain. (units unknown) (unknown) (unknown) (no date) (unknown) (unknown) pregabalin 200 mg capsule 200 mg PO TID 06/14/22 06/14/22 (units unknown) (unknown) (unknown) (no date) (unknown) (unknown) pregabalin 200 mg capsule (units unknown) (unknown) (unknown) (no date) (unknown) (unknown) regards to you r pain medication. No prescription will be filled today but you (units unknown) (unknown) (unknown) (no date) (unknown) (unknown) release (units unknown) (unknown) (unknown) (no date) (unknown) (unknown) seem to be wor jay. He has been sleeping department for a number of hours (units unknown) (unknown) (unknown) (no date) (unknown) (unknown) speech. (units unknown) (unknown) (unknown) (no date) (unknown) (unknown) tabs (units unknown) (unknown) (unknown) (no date) (unknown) (unknown) tramadol 50 mg tablet 50 mg PO TID PRN pain #30 tabs 06/14/22 (units unknown) (unknown) (unknown) (no date) (unknown) (unknown) tramadol 50 mg table t (units unknown) (unknown) (unknown) (no date) (unknown) (unknown) urinary contin ence and no fever. This is unlikely to be epidural hematoma or (units unknown) (unknown) (unknown) (no date) (unknown) (unknown) urine or stool or any new, worsening or concerning symptoms (units unknown) (unknown) Result panel 30 (unknown) (no date) (unknown) (unknown) (no value) (units unknown) (unknown) (unknown) (no date) (unknown) (unknown) <Electronicall y signed by Tari Dempsey D.O.> (units unknown) (unknown) (unknown) (no date) (unknown) (unknown) (Lidoderm) (units unknown) (unknown) (unknown) (no date) (unknown) (unknown) *Continue to t [facility] medications as directed (units unknown) (unknown) (unknown) (no date) (unknown) (unknown) *Follow up wit h your primary care provider in 2-3 days or call [phone] (units unknown) (unknown) (unknown) (no date) (unknown) (unknown) *Return to ER if you should have increasing pain fever weakness in legs loss of (units unknown) (unknown) (unknown) (no date) (unknown) (unknown) *What to do: A t this time you will need to follow-up with pain management in (units unknown) (unknown) (unknown) (no date) (unknown) (unknown) *You have been diagnosed with lumbar radiculopathy (units unknown) (unknown) (unknown) (no date) (unknown) (unknown) 00:31 06/24/22 (unit s unknown) (unknown) (unknown) (no date) (unknown) (unknown) 01:53 06/24/22 (unit s unknown) (unknown) (unknown) (no date) (unknown) (unknown) 01:56 06/24/22 (unit s unknown) (unknown) (unknown) (no date) (unknown) (unknown) 01:56 (units unknown) (unknown) (unknown) (no date) (unknown) (unknown) 02:00 06/24/22 (unit s unknown) (unknown) (unknown) (no date) (unknown) (unknown) 02:00 (units unknown) (unknown) (unknown) (no date) (unknown) (unknown) 02:30 06/24/22 (unit s unknown) (unknown) (unknown) (no date) (unknown) (unknown) 03:00 06/24/22 (unit s unknown) (unknown) (unknown) (no date) (unknown) (unknown) 03:00 (units unknown) (unknown) (unknown) (no date) (unknown) (unknown) 03:30 06/24/22 (unit s unknown) (unknown) (unknown) (no date) (unknown) (unknown) 03:30 (units unknown) (unknown) (unknown) (no date) (unknown) (unknown) 06/24/22 0737 (units unknown) (unknown) (unknown) (no date) (unknown) (unknown) 06/24/22 (units unknown) (unknown) (unknown) (no date) (unknown) (unknown) 04:00 06/24/22 (unit s unknown) (unknown) (unknown) (no date) (unknown) (unknown) 04:30 (units unknown) (unknown) (unknown) (no date) (unknown) (unknown) 04:31 06/24/22 (unit s unknown) (unknown) (unknown) (no date) (unknown) (unknown) 05:00 (units unknown) (unknown) (unknown) (no date) (unknown) (unknown) 05:01 06/24/22 (unit s unknown) (unknown) (unknown) (no date) (unknown) (unknown) 05:01 (units unknown) (unknown) (unknown) (no date) (unknown) (unknown) 1 patch topica l DAILY Qty: 30 0RF (units unknown) (unknown) (unknown) (no date) (unknown) (unknown) 20 mg PO DAILY (unit s unknown) (unknown) (unknown) (no date) (unknown) (unknown) 200 mg PO TID (units unknown) (unknown) (unknown) (no date) (unknown) (unknown) 50 mg PO TID P RN (Reason: pain) Qty: 30 1RF (units unknown) (unknown) (unknown) (no date) (unknown) (unknown) 60 mg PO DAILY (unit s unknown) (unknown) (unknown) (no date) (unknown) (unknown) 750 mg PO Q8H PRN (Reason: muscle pain) Qty: 30 0RF (units unknown) (unknown) (unknown) (no date) (unknown) (unknown) 990 (units unknown) (unknown) (unknown) (no date) (unknown) (unknown) Activity Restrictions/Additiona l Instructions: (units unknown) (unknown) (unknown) (no date) (unknown) (unknown) Age/Sex: 47 / M (uni ts unknown) (unknown) (unknown) (no date) (unknown) (unknown) Allergies (units unknown) (unknown) (unknown) (no date) (unknown) (unknown) Allergy/AdvRea c Type Severity Reaction Status Date / Time (units unknown) (unknown) (unknown) (no date) (unknown) (unknown) BACK: No verte bral tenderness no step-off he is having left flank paraspinal (units unknown) (unknown) (unknown) (no date) (unknown) (unknown) Blood Pressure 115/6 9 (units unknown) (unknown) (unknown) (no date) (unknown) (unknown) Blood Pressure 115/7 2 (units unknown) (unknown) (unknown) (no date) (unknown) (unknown) Blood Pressure 118/6 8 (units unknown) (unknown) (unknown) (no date) (unknown) (unknown) Blood Pressure 118/91 H (units unknown) (unknown) (unknown) (no date) (unknown) (unknown) Blood Pressure 123/82 117/91 H (units unknown) (unknown) (unknown) (no date) (unknown) (unknown) Blood Pressure 125/81 105/71 (units unknown) (unknown) (unknown) (no date) (unknown) (unknown) Blood Pressure 128/8 8 (units unknown) (unknown) (unknown) (no date) (unknown) (unknown) Blood Pressure 130/86 06/23/22 22:18 (units unknown) (unknown) (unknown) (no date) (unknown) (unknown) CARDIOVASCULAR : peripheral pulses in tact, cap refill <2 sec (units unknown) (unknown) (unknown) (no date) (unknown) (unknown) Chief Complain t: Back Pain/Injury (units unknown) (unknown) (unknown) (no date) (unknown) (unknown) Clinical Impression: (units unknown) (unknown) (unknown) (no date) (unknown) (unknown) Course (units unknown) (unknown) (unknown) (no date) (unknown) (unknown) : 5 Acct:[id number] (units unknown) (unknown) (unknown) (no date) (unknown) (unknown) Date of Servic e: 06/23/22 (units unknown) (unknown) (unknown) (no date) (unknown) (unknown) Departure (units unknown) (unknown) (unknown) (no date) (unknown) (unknown) Discharge Plan (unit s unknown) (unknown) (unknown) (no date) (unknown) (unknown) Discontinued Medications (units unknown) (unknown) (unknown) (no date) (unknown) (unknown) Documented By: [facility] ( units unknown) (unknown) (unknown) (no date) (unknown) (unknown) ER Physician: Tari Dempsey D.O. (units unknown) (unknown) (unknown) (no date) (unknown) (unknown) EXTREMITIES: N ormal range of motion, no clubbing or edema. Neurovascularly (units unknown) (unknown) (unknown) (no date) (unknown) (unknown) Emergency Report (un its unknown) (unknown) (unknown) (no date) (unknown) (unknown) Exam (units unknown) (unknown) (unknown) (no date) (unknown) (unknown) GENERAL: Alert 47 year sleeping easily arousable (units unknown) (unknown) (unknown) (no date) (unknown) (unknown) General (units unknown) (unknown) (unknown) (no date) (unknown) (unknown) HPI - Back Pain/Inju ry (units unknown) (unknown) (unknown) (no date) (unknown) (unknown) HPI Narrative: (unit s unknown) (unknown) (unknown) (no date) (unknown) (unknown) History of Pre sent Illness (units unknown) (unknown) (unknown) (no date) (unknown) (unknown) Home Medications (un its unknown) (unknown) (unknown) (no date) (unknown) (unknown) Hydromorphone HCl (Hydromorphone 1 Mg Inj) 1 mg IM NOW ONE (units unknown) (unknown) (unknown) (no date) (unknown) (unknown) Hydromorphone HCl (Hydromorphone 1 Mg Inj) 1 mg IV NOW ONE (units unknown) (unknown) (unknown) (no date) (unknown) (unknown) Initial Vital Signs (units unknown) (unknown) (unknown) (no date) (unknown) (unknown) Initial Vital Signs: (units unknown) (unknown) (unknown) (no date) (unknown) (unknown) Instructions: DI for Low Back Pain (units unknown) (unknown) (unknown) (no date) (unknown) (unknown) [facility] [address] [place] [id number] (units unknown) (unknown) (unknown) (no date) (unknown) (unknown) Dhiraj Daigle MD [Physician] (units unknown) (unknown) (unknown) (no date) (unknown) (unknown) Last Admin: 04:30 Dose: 1 mg (units unknown) (unknown) (unknown) (no date) (unknown) (unknown) Lumbar radiculopathy (units unknown) (unknown) (unknown) (no date) (unknown) (unknown) MDM - Back Pain/Inju ry (units unknown) (unknown) (unknown) (no date) (unknown) (unknown) MDM Narrative (units unknown) (unknown) (unknown) (no date) (unknown) (unknown) Medical Histor y (units unknown) (unknown) (unknown) (no date) (unknown) (unknown) Medical decisi on making narrative: (units unknown) (unknown) (unknown) (no date) (unknown) (unknown) Medication Instructions Recorded Confirmed (units unknown) (unknown) (unknown) (no date) (unknown) (unknown) Medication Instructions Recorded (units unknown) (unknown) (unknown) (no date) (unknown) (unknown) LucycellDoctor chowdary MD [Primary Care Provider] (units unknown) (unknown) (unknown) (no date) (unknown) (unknown) NEUROLOGICAL: Cranial nerves II through XII grossly intact. Normal gait and (units unknown) (unknown) (unknown) (no date) (unknown) (unknown) No Action (units unknown) (unknown) (unknown) (no date) (unknown) (unknown) No change in b owel or bladder habits he no leg weakness. He says that he was (units unknown) (unknown) (unknown) (no date) (unknown) (unknown) Ordered: (units unknown) (unknown) (unknown) (no date) (unknown) (unknown) Orders (units unknown) (unknown) (unknown) (no date) (unknown) (unknown) Oxygen Deliver y Method Room Air 06/23/22 22:18 (units unknown) (unknown) (unknown) (no date) (unknown) (unknown) Oxygen Deliver y Method Room Air (units unknown) (unknown) (unknown) (no date) (unknown) (unknown) Oxygen Delivery Meth od (units unknown) (unknown) (unknown) (no date) (unknown) (unknown) Patient 39-yea r-old male with acute on chronic back pain with recent epidural (units unknown) (unknown) (unknown) (no date) (unknown) (unknown) Patient Comments: (u nits unknown) (unknown) (unknown) (no date) (unknown) (unknown) Patient Dispos ition: Home (units unknown) (unknown) (unknown) (no date) (unknown) (unknown) Patient History (uni ts unknown) (unknown) (unknown) (no date) (unknown) (unknown) Patient is a 47-year-old male who has acute on chronic back pain. He says that (units unknown) (unknown) (unknown) (no date) (unknown) (unknown) Patient: Kishor Carrasquillo MR#: [id number] (units unknown) (unknown) (unknown) (no date) (unknown) (unknown) Please follow- up with orthopedics as well (units unknown) (unknown) (unknown) (no date) (unknown) (unknown) Prescriptions: (unit s unknown) (unknown) (unknown) (no date) (unknown) (unknown) Previous Rx's (units unknown) (unknown) (unknown) (no date) (unknown) (unknown) Pulse Oximetry 100 1 00 (units unknown) (unknown) (unknown) (no date) (unknown) (unknown) Pulse Oximetry 100 ( units unknown) (unknown) (unknown) (no date) (unknown) (unknown) Pulse Oximetry 97 97 (units unknown) (unknown) (unknown) (no date) (unknown) (unknown) Pulse Oximetry 98 06/23/22 22:18 (units unknown) (unknown) (unknown) (no date) (unknown) (unknown) Pulse Oximetry 99 94 (units unknown) (unknown) (unknown) (no date) (unknown) (unknown) Pulse Oximetry 99 99 (units unknown) (unknown) (unknown) (no date) (unknown) (unknown) Pulse Oximetry 99 (u nits unknown) (unknown) (unknown) (no date) (unknown) (unknown) Pulse Rate 56 L 68 ( units unknown) (unknown) (unknown) (no date) (unknown) (unknown) Pulse Rate 57 L 60 ( units unknown) (unknown) (unknown) (no date) (unknown) (unknown) Pulse Rate 62 57 L ( units unknown) (unknown) (unknown) (no date) (unknown) (unknown) Pulse Rate 62 (units unknown) (unknown) (unknown) (no date) (unknown) (unknown) Pulse Rate 67 (units unknown) (unknown) (unknown) (no date) (unknown) (unknown) Pulse Rate 73 73 (un its unknown) (unknown) (unknown) (no date) (unknown) (unknown) Pulse Rate 90 65 (un its unknown) (unknown) (unknown) (no date) (unknown) (unknown) Pulse Rate 98 H 06/23/22 22:18 (units unknown) (unknown) (unknown) (no date) (unknown) (unknown) RESPIRATORY: N o respiratory distress, speaks in full sentences without (units unknown) (unknown) (unknown) (no date) (unknown) (unknown) ROS Unobtainab le: All systems reviewed + are unremarkable except as noted in HPI (units unknown) (unknown) (unknown) (no date) (unknown) (unknown) Referrals: (units unknown) (unknown) (unknown) (no date) (unknown) (unknown) Related Data (units unknown) (unknown) (unknown) (no date) (unknown) (unknown) Respiratory Rate 18 (units unknown) (unknown) (unknown) (no date) (unknown) (unknown) Respiratory Ra te 20 06/23/22 22:18 (units unknown) (unknown) (unknown) (no date) (unknown) (unknown) Respiratory Rate 20 (units unknown) (unknown) (unknown) (no date) (unknown) (unknown) Respiratory Rate (un its unknown) (unknown) (unknown) (no date) (unknown) (unknown) Review of Systems (u nits unknown) (unknown) (unknown) (no date) (unknown) (unknown) Rx Instructions: (un its unknown) (unknown) (unknown) (no date) (unknown) (unknown) SKIN: Warm, dr y, no petechiae, no rashes or lesions. (units unknown) (unknown) (unknown) (no date) (unknown) (unknown) Signed By: (units unknown) (unknown) (unknown) (no date) (unknown) (unknown) Smoking Status : Never smoker (units unknown) (unknown) (unknown) (no date) (unknown) (unknown) Social History (units unknown) (unknown) (unknown) (no date) (unknown) (unknown) Source: patient (uni ts unknown) (unknown) (unknown) (no date) (unknown) (unknown) Stand Alone Fo lorraine: Patient Portal/API (units unknown) (unknown) (unknown) (no date) (unknown) (unknown) Stated Complai nt: Back pain (units unknown) (unknown) (unknown) (no date) (unknown) (unknown) Stop: 06/24/22 04:21 (units unknown) (unknown) (unknown) (no date) (unknown) (unknown) Stop: 06/24/22 04:26 (units unknown) (unknown) (unknown) (no date) (unknown) (unknown) Substance Use Type: does not use (units unknown) (unknown) (unknown) (no date) (unknown) (unknown) TAKE ONE CAPSU LE BY MOUTH THREE TIMES DAILY (units unknown) (unknown) (unknown) (no date) (unknown) (unknown) Temperature 98 .1 F 06/23/22 22:18 (units unknown) (unknown) (unknown) (no date) (unknown) (unknown) Time Seen by Wesley gann: 06/24/22 04:15 (units unknown) (unknown) (unknown) (no date) (unknown) (unknown) Vital Signs - 8 hr ( units unknown) (unknown) (unknown) (no date) (unknown) (unknown) Vital Signs (units unknown) (unknown) (unknown) (no date) (unknown) (unknown) Vital signs: (units unknown) (unknown) (unknown) (no date) (unknown) (unknown) abscess. He queen s some pain medication at home he is requesting some more. We (units unknown) (unknown) (unknown) (no date) (unknown) (unknown) alcohol intake frequency: 0-2 drinks per day (units unknown) (unknown) (unknown) (no date) (unknown) (unknown) and below (units unknown) (unknown) (unknown) (no date) (unknown) (unknown) and that gerrye d to help the most. (units unknown) (unknown) (unknown) (no date) (unknown) (unknown) canal stenosis at L2-L3. He was seen by pain management on June 22 when he (units unknown) (unknown) (unknown) (no date) (unknown) (unknown) did get 1 chec k of Dilaudid. I hope that this helps makes you feel better. (units unknown) (unknown) (unknown) (no date) (unknown) (unknown) did have a conversation how he will have to talk to his primary care or pain (units unknown) (unknown) (unknown) (no date) (unknown) (unknown) difficulty (units unknown) (unknown) (unknown) (no date) (unknown) (unknown) duloxetine 60 mg capsule,delayed 60 mg PO DAILY 06/14/22 06/14/22 (units unknown) (unknown) (unknown) (no date) (unknown) (unknown) duloxetine 60 mg capsule,delayed release(DR/EC) (units unknown) (unknown) (unknown) (no date) (unknown) (unknown) emergency depa rtment with show degenerative disc disease and severe central (units unknown) (unknown) (unknown) (no date) (unknown) (unknown) given oxycodon e he still has a couple home he is only taking 1 time it does not (units unknown) (unknown) (unknown) (no date) (unknown) (unknown) had a epidural steroid injection. Patient is complaining of left flank pain. (units unknown) (unknown) (unknown) (no date) (unknown) (unknown) he is had 4 ba ck surgerys. He actually had an MRI without contrast in the (units unknown) (unknown) (unknown) (no date) (unknown) (unknown) injection on A . He has no neurologic deficits no saddle anesthesia no (units unknown) (unknown) (unknown) (no date) (unknown) (unknown) intact sensati on in lower extremities intact (units unknown) (unknown) (unknown) (no date) (unknown) (unknown) leave on most painful area for up to 12 hrs (units unknown) (unknown) (unknown) (no date) (unknown) (unknown) lidocaine 5 % topical patch 1 patch topical DAILY #30 ea 06/14/22 (units unknown) (unknown) (unknown) (no date) (unknown) (unknown) lidocaine [Lid oderm] 5 % adhesive patch,medicated (units unknown) (unknown) (unknown) (no date) (unknown) (unknown) management. He is requesting a shot of Dilaudid which he received previously (units unknown) (unknown) (unknown) (no date) (unknown) (unknown) methocarbamol 750 mg tablet 750 mg PO Q8H PRN muscle pain #30 06/07/22 (units unknown) (unknown) (unknown) (no date) (unknown) (unknown) methocarbamol 750 mg tablet (units unknown) (unknown) (unknown) (no date) (unknown) (unknown) milk Allergy M ild Verified 06/23/22 22:24 (units unknown) (unknown) (unknown) (no date) (unknown) (unknown) omeprazole 20 mg capsule,delayed 20 mg PO DAILY 06/14/22 06/14/22 (units unknown) (unknown) (unknown) (no date) (unknown) (unknown) omeprazole 20 mg capsule,delayed release(DR/EC) (units unknown) (unknown) (unknown) (no date) (unknown) (unknown) pain. (units unknown) (unknown) (unknown) (no date) (unknown) (unknown) pregabalin 200 mg capsule 200 mg PO TID 06/14/22 06/14/22 (units unknown) (unknown) (unknown) (no date) (unknown) (unknown) pregabalin 200 mg capsule (units unknown) (unknown) (unknown) (no date) (unknown) (unknown) regards to you r pain medication. No prescription will be filled today but you (units unknown) (unknown) (unknown) (no date) (unknown) (unknown) release (units unknown) (unknown) (unknown) (no date) (unknown) (unknown) seem to be wor jay. He has been sleeping department for a number of hours (units unknown) (unknown) (unknown) (no date) (unknown) (unknown) speech. (units unknown) (unknown) (unknown) (no date) (unknown) (unknown) tabs (units unknown) (unknown) (unknown) (no date) (unknown) (unknown) tramadol 50 mg tablet 50 mg PO TID PRN pain #30 tabs 06/14/22 (units unknown) (unknown) (unknown) (no date) (unknown) (unknown) tramadol 50 mg table t (units unknown) (unknown) (unknown) (no date) (unknown) (unknown) urinary contin ence and no fever. This is unlikely to be epidural hematoma or (units unknown) (unknown) (unknown) (no date) (unknown) (unknown) urine or stool or any new, worsening or concerning symptoms (units unknown) (unknown) Result panel 31 (unknown) (no date) (unknown) (unknown) (no value) (units unknown) (unknown) (unknown) (no date) (unknown) (unknown) 06/28/22 (units unknown) (unknown) (unknown) (no date) (unknown) (unknown) 1. No acute process. (units unknown) (unknown) (unknown) (no date) (unknown) (unknown) [facility] [address] [place] [address] (un its unknown) (unknown) (unknown) (no date) (unknown) (unknown) 1990 (units unknown) (unknown) (unknown) (no date) (unknown) (unknown) 2. No interval change compared to MRI dated 06/07/2022. (units unknown) (unknown) (unknown) (no date) (unknown) (unknown) 3. Multilevel degenerative disc and facet disease, as well as ligamentum flavum (units unknown) (unknown) (unknown) (no date) (unknown) (unknown) 4. Postsurgica l sequelae. (units unknown) (unknown) (unknown) (no date) (unknown) (unknown) 5. Multilevel canal stenoses, worst at L2-L3 where there is severe canal (units unknown) (unknown) (unknown) (no date) (unknown) (unknown) 6. Multilevel moderate foraminal stenosis as described above. (units unknown) (unknown) (unknown) (no date) (unknown) (unknown) 7. Moderate ch ronic T12 compression fracture. (units unknown) (unknown) (unknown) (no date) (unknown) (unknown) Accession Numb er: [id number] (units unknown) (unknown) (unknown) (no date) (unknown) (unknown) Age/Sex: 47 / M Date of Service: (units unknown) (unknown) (unknown) (no date) (unknown) (unknown) Alignment and Curvature: 5 lumbar type vertebral bodies are present by plain (units unknown) (unknown) (unknown) (no date) (unknown) (unknown) [place] [address] (units unknown) (unknown) (unknown) (no date) (unknown) (unknown) Approved by: Abilio Gross M.D. on 06/28/2022 at 19:30 (units unknown) (unknown) (unknown) (no date) (unknown) (unknown) Bone Marrow: M arrow is of normal overall signal. No acute vertebral body (units unknown) (unknown) (unknown) (no date) (unknown) (unknown) COMPARISON: [facility], CR, XR LUMBAR SPINE 2-3V, 06/04/2022, 21:08. (units unknown) (unknown) (unknown) (no date) (unknown) (unknown) : 5 Acct:[id number] (units unknown) (unknown) (unknown) (no date) (unknown) (unknown) Dictated by: Abilio Gross M.D. on 06/28/2022 at 19:26 (units unknown) (unknown) (unknown) (no date) (unknown) (unknown) FINDINGS: (units unknown) (unknown) (unknown) (no date) (unknown) (unknown) [facility], , MR LUMBAR SPINE WO CON, 06/07/2022, 14:37. (units unknown) (unknown) (unknown) (no date) (unknown) (unknown) IMPRESSION: (units unknown) (unknown) (unknown) (no date) (unknown) (unknown) INDICATIONS: k now lumbar disease, had injection 1 week ago, left leg numb (units unknown) (unknown) (unknown) (no date) (unknown) (unknown) Image quality: Degraded by metallic artifact. (units unknown) (unknown) (unknown) (no date) (unknown) (unknown) [facility] (uni ts unknown) (unknown) (unknown) (no date) (unknown) (unknown) [place] (units unknown) (unknown) (unknown) (no date) (unknown) (unknown) L1-L2: Mild di sc height loss and desiccation. Mild facet and ligamentum flavum (units unknown) (unknown) (unknown) (no date) (unknown) (unknown) L2-L3: Mild di sc height loss. Moderate disc desiccation. Mild diffuse disc (units unknown) (unknown) (unknown) (no date) (unknown) (unknown) L3-L4: Posteri or fusion. Interbody device. Mild diffuse disc bulge. Mild (units unknown) (unknown) (unknown) (no date) (unknown) (unknown) L4-L5: Posteri or fusion. Interbody device. Mild bilateral facet hypertrophy. (units unknown) (unknown) (unknown) (no date) (unknown) (unknown) L5-S1: Posteri or fusion. Interbody device placement. Mild bilateral facet (units unknown) (unknown) (unknown) (no date) (unknown) (unknown) Loc: ED (units unknown) (unknown) (unknown) (no date) (unknown) (unknown) Magnetic Reson ance Report (units unknown) (unknown) (unknown) (no date) (unknown) (unknown) Mild bilateral foraminal stenosis. No significant change. (units unknown) (unknown) (unknown) (no date) (unknown) (unknown) Mild facet and ligamentum flavum hypertrophy. Severe canal stenosis. Moderate (units unknown) (unknown) (unknown) (no date) (unknown) (unknown) Mild (units unknown) (unknown) (unknown) (no date) (unknown) (unknown) No significant canal stenosis. Moderate bilateral foraminal stenosis. No (units unknown) (unknown) (unknown) (no date) (unknown) (unknown) No (units unknown) (unknown) (unknown) (no date) (unknown) (unknown) Noncontrast sa gittal T1 spin echo and T2 fast echo, sagittal STIR, and T2 fast (units unknown) (unknown) (unknown) (no date) (unknown) (unknown) Ordering Provi kael: [place] D.O. (units unknown) (unknown) (unknown) (no date) (unknown) (unknown) PROCEDURE: MR LUMBAR SPINE WO CON (units unknown) (unknown) (unknown) (no date) (unknown) (unknown) Paraspinous So ft Tissues: No paravertebral masses. (units unknown) (unknown) (unknown) (no date) (unknown) (unknown) Patient: Kishor Carrasquillo MR#: [id number] (units unknown) (unknown) (unknown) (no date) (unknown) (unknown) Procedure: MR lumbar spine wo con (units unknown) (unknown) (unknown) (no date) (unknown) (unknown) Signed (units unknown) (unknown) (unknown) (no date) (unknown) (unknown) Spinal Cord: C onus medullaris terminates at the mid L1 level. Visualized cord (units unknown) (unknown) (unknown) (no date) (unknown) (unknown) T11-T12 where there is mild cord flattening. (units unknown) (unknown) (unknown) (no date) (unknown) (unknown) T11-T12: Mild retropulsion at the superior T12 level. Moderate disc height (units unknown) (unknown) (unknown) (no date) (unknown) (unknown) T12-L1: Mild d isc height loss and desiccation. No significant canal nor (units unknown) (unknown) (unknown) (no date) (unknown) (unknown) T12. (units unknown) (unknown) (unknown) (no date) (unknown) (unknown) TECHNIQUE: (units unknown) (unknown) (unknown) (no date) (unknown) (unknown) bilateral (units unknown) (unknown) (unknown) (no date) (unknown) (unknown) bulge. (units unknown) (unknown) (unknown) (no date) (unknown) (unknown) change. (units unknown) (unknown) (unknown) (no date) (unknown) (unknown) compression (units unknown) (unknown) (unknown) (no date) (unknown) (unknown) demonstrates n ormal signal and size. (units unknown) (unknown) (unknown) (no date) (unknown) (unknown) desiccation. M ild diffuse disc bulge. Moderate canal stenosis. Mild cord (units unknown) (unknown) (unknown) (no date) (unknown) (unknown) diffuse disc bulge/osteophyte. Mild canal stenosis. Moderate bilateral (units unknown) (unknown) (unknown) (no date) (unknown) (unknown) endplates of t he lumbar and lower thoracic spine. Moderate chronic wedging of (units unknown) (unknown) (unknown) (no date) (unknown) (unknown) facet hypertro phy. Mild canal stenosis. Moderate bilateral foraminal stenosis. (units unknown) (unknown) (unknown) (no date) (unknown) (unknown) film. 2 mm (units unknown) (unknown) (unknown) (no date) (unknown) (unknown) flattening. (units unknown) (unknown) (unknown) (no date) (unknown) (unknown) foraminal sten osis. No significant change. (units unknown) (unknown) (unknown) (no date) (unknown) (unknown) foraminal (units unknown) (unknown) (unknown) (no date) (unknown) (unknown) fractures. Pos terior fusion hardware at L3-S1. Mild reactive signal throughout (units unknown) (unknown) (unknown) (no date) (unknown) (unknown) hypertrophy an d epidural lipomatosis. (units unknown) (unknown) (unknown) (no date) (unknown) (unknown) hypertrophy. M ild canal stenosis. Mild bilateral foraminal stenosis. No (units unknown) (unknown) (unknown) (no date) (unknown) (unknown) hypertrophy. (units unknown) (unknown) (unknown) (no date) (unknown) (unknown) loss and (units unknown) (unknown) (unknown) (no date) (unknown) (unknown) may be performed. (u nits unknown) (unknown) (unknown) (no date) (unknown) (unknown) of retrolisthe sis of L1 on L2, L2 on L3, and L3 on L4. (units unknown) (unknown) (unknown) (no date) (unknown) (unknown) significant change. (units unknown) (unknown) (unknown) (no date) (unknown) (unknown) significant (units unknown) (unknown) (unknown) (no date) (unknown) (unknown) spin echo (units unknown) (unknown) (unknown) (no date) (unknown) (unknown) stenosis, and at (un its unknown) (unknown) (unknown) (no date) (unknown) (unknown) stenosis. No significant change. (units unknown) (unknown) (unknown) (no date) (unknown) (unknown) stenosis. (units unknown) (unknown) (unknown) (no date) (unknown) (unknown) the (units unknown) (unknown) (unknown) (no date) (unknown) (unknown) through the tank mbar spine. In cases with scoliosis, additional coronal T2 fast (units unknown) (unknown) Result panel 32 (unknown) (no date) (unknown) (unknown) (no value) (units unknown) (unknown) (unknown) (no date) (unknown) (unknown) (Lidoderm) (units unknown) (unknown) (unknown) (no date) (unknown) (unknown) 06/28/22 (units unknown) (unknown) (unknown) (no date) (unknown) (unknown) 1 patch topica l DAILY Qty: 30 0RF (units unknown) (unknown) (unknown) (no date) (unknown) (unknown) 18:50 (units unknown) (unknown) (unknown) (no date) (unknown) (unknown) 20 mg PO DAILY (unit s unknown) (unknown) (unknown) (no date) (unknown) (unknown) 200 mg PO TID (units unknown) (unknown) (unknown) (no date) (unknown) (unknown) 50 mg PO TID P RN (Reason: pain) Qty: 30 1RF (units unknown) (unknown) (unknown) (no date) (unknown) (unknown) 60 mg PO DAILY (unit s unknown) (unknown) (unknown) (no date) (unknown) (unknown) 750 mg PO Q8H PRN (Reason: muscle pain) Qty: 30 0RF (units unknown) (unknown) (unknown) (no date) (unknown) (unknown) 990 (units unknown) (unknown) (unknown) (no date) (unknown) (unknown) Age/Sex: 47 / M (uni ts unknown) (unknown) (unknown) (no date) (unknown) (unknown) Allergies (units unknown) (unknown) (unknown) (no date) (unknown) (unknown) Allergy/AdvRea c Type Severity Reaction Status Date / Time (units unknown) (unknown) (unknown) (no date) (unknown) (unknown) Chief Complain t: Back Pain/Injury (units unknown) (unknown) (unknown) (no date) (unknown) (unknown) Course (units unknown) (unknown) (unknown) (no date) (unknown) (unknown) : 5 Acct:[id number] (units unknown) (unknown) (unknown) (no date) (unknown) (unknown) Date of Servic e: 06/28/22 (units unknown) (unknown) (unknown) (no date) (unknown) (unknown) Departure (units unknown) (unknown) (unknown) (no date) (unknown) (unknown) Discharge Plan (unit s unknown) (unknown) (unknown) (no date) (unknown) (unknown) ER Physician: *Temp,ED* (units unknown) (unknown) (unknown) (no date) (unknown) (unknown) Emergency Report (un its unknown) (unknown) (unknown) (no date) (unknown) (unknown) Exam (units unknown) (unknown) (unknown) (no date) (unknown) (unknown) General (units unknown) (unknown) (unknown) (no date) (unknown) (unknown) HPI - Back Pain/Inju ry (units unknown) (unknown) (unknown) (no date) (unknown) (unknown) Home Medications (un its unknown) (unknown) (unknown) (no date) (unknown) (unknown) Initial Vital Signs (units unknown) (unknown) (unknown) (no date) (unknown) (unknown) Initial Vital Signs: (units unknown) (unknown) (unknown) (no date) (unknown) (unknown) [address] [address] (units unknown) (unknown) (unknown) (no date) (unknown) (unknown) Lumbar radiculopathy (units unknown) (unknown) (unknown) (no date) (unknown) (unknown) Medical Histor y (units unknown) (unknown) (unknown) (no date) (unknown) (unknown) Medication Instructions Recorded Confirmed (units unknown) (unknown) (unknown) (no date) (unknown) (unknown) Medication Instructions Recorded (units unknown) (unknown) (unknown) (no date) (unknown) (unknown) Miscellaneous, Doctor, [Primary Care Provider] (units unknown) (unknown) (unknown) (no date) (unknown) (unknown) No Action (units unknown) (unknown) (unknown) (no date) (unknown) (unknown) Oxygen Deliver y Method Room Air 06/28/22 18:50 (units unknown) (unknown) (unknown) (no date) (unknown) (unknown) Oxygen Deliver y Method Room Air (units unknown) (unknown) (unknown) (no date) (unknown) (unknown) Patient Comments: (u nits unknown) (unknown) (unknown) (no date) (unknown) (unknown) Patient History (uni ts unknown) (unknown) (unknown) (no date) (unknown) (unknown) Patient: Kishor Carrasquillo MR#: [id number] (units unknown) (unknown) (unknown) (no date) (unknown) (unknown) Prescriptions: (unit s unknown) (unknown) (unknown) (no date) (unknown) (unknown) Previous Rx's (units unknown) (unknown) (unknown) (no date) (unknown) (unknown) Pulse Oximetry 99 06/28/22 18:50 (units unknown) (unknown) (unknown) (no date) (unknown) (unknown) Pulse Oximetry 99 (u nits unknown) (unknown) (unknown) (no date) (unknown) (unknown) Pulse Rate 107 H 06/28/22 18:50 (units unknown) (unknown) (unknown) (no date) (unknown) (unknown) Pulse Rate 107 H (un its unknown) (unknown) (unknown) (no date) (unknown) (unknown) Referrals: (units unknown) (unknown) (unknown) (no date) (unknown) (unknown) Related Data (units unknown) (unknown) (unknown) (no date) (unknown) (unknown) Respiratory Ra te 18 06/28/22 18:50 (units unknown) (unknown) (unknown) (no date) (unknown) (unknown) Respiratory Rate 18 (units unknown) (unknown) (unknown) (no date) (unknown) (unknown) Rx Instructions: (un its unknown) (unknown) (unknown) (no date) (unknown) (unknown) Signed By: (units unknown) (unknown) (unknown) (no date) (unknown) (unknown) Smoking Status : Never smoker (units unknown) (unknown) (unknown) (no date) (unknown) (unknown) Social History (units unknown) (unknown) (unknown) (no date) (unknown) (unknown) Source: patient (uni ts unknown) (unknown) (unknown) (no date) (unknown) (unknown) Stated Complai nt: Back pain causing issues with L leg/foot, numbness (units unknown) (unknown) (unknown) (no date) (unknown) (unknown) Substance Use Type: does not use (units unknown) (unknown) (unknown) (no date) (unknown) (unknown) TAKE ONE CAPSU LE BY MOUTH THREE TIMES DAILY (units unknown) (unknown) (unknown) (no date) (unknown) (unknown) Temperature 97 .7 F 06/28/22 18:50 (units unknown) (unknown) (unknown) (no date) (unknown) (unknown) Temperature 97.7 F ( units unknown) (unknown) (unknown) (no date) (unknown) (unknown) Time Seen by Wesley gann: 06/28/22 18:55 (units unknown) (unknown) (unknown) (no date) (unknown) (unknown) Vital Signs - 8 hr ( units unknown) (unknown) (unknown) (no date) (unknown) (unknown) Vital Signs (units unknown) (unknown) (unknown) (no date) (unknown) (unknown) Vital signs: (units unknown) (unknown) (unknown) (no date) (unknown) (unknown) alcohol intake frequency: 0-2 drinks per day (units unknown) (unknown) (unknown) (no date) (unknown) (unknown) duloxetine 60 mg capsule,delayed 60 mg PO DAILY 06/14/22 06/14/22 (units unknown) (unknown) (unknown) (no date) (unknown) (unknown) duloxetine 60 mg capsule,delayed release(DR/EC) (units unknown) (unknown) (unknown) (no date) (unknown) (unknown) leave on most painful area for up to 12 hrs (units unknown) (unknown) (unknown) (no date) (unknown) (unknown) lidocaine 5 % topical patch 1 patch topical DAILY #30 ea 06/14/22 (units unknown) (unknown) (unknown) (no date) (unknown) (unknown) lidocaine [Lid oderm] 5 % adhesive patch,medicated (units unknown) (unknown) (unknown) (no date) (unknown) (unknown) methocarbamol 750 mg tablet 750 mg PO Q8H PRN muscle pain #30 06/07/22 (units unknown) (unknown) (unknown) (no date) (unknown) (unknown) methocarbamol 750 mg tablet (units unknown) (unknown) (unknown) (no date) (unknown) (unknown) milk Allergy M ild Verified 06/23/22 22:24 (units unknown) (unknown) (unknown) (no date) (unknown) (unknown) omeprazole 20 mg capsule,delayed 20 mg PO DAILY 06/14/22 06/14/22 (units unknown) (unknown) (unknown) (no date) (unknown) (unknown) omeprazole 20 mg capsule,delayed release(DR/EC) (units unknown) (unknown) (unknown) (no date) (unknown) (unknown) pregabalin 200 mg capsule 200 mg PO TID 06/14/22 06/14/22 (units unknown) (unknown) (unknown) (no date) (unknown) (unknown) pregabalin 200 mg capsule (units unknown) (unknown) (unknown) (no date) (unknown) (unknown) release (units unknown) (unknown) (unknown) (no date) (unknown) (unknown) tabs (units unknown) (unknown) (unknown) (no date) (unknown) (unknown) tramadol 50 mg tablet 50 mg PO TID PRN pain #30 tabs 06/14/22 (units unknown) (unknown) (unknown) (no date) (unknown) (unknown) tramadol 50 mg table t (units unknown) (unknown) Result panel 33 (unknown) (no date) (unknown) (unknown) (no value) (units unknown) (unknown) (unknown) (no date) (unknown) (unknown) (Lidoderm) (units unknown) (unknown) (unknown) (no date) (unknown) (unknown) 03/09/22 (units unknown) (unknown) (unknown) (no date) (unknown) (unknown) 06/04/22 (units unknown) (unknown) (unknown) (no date) (unknown) (unknown) 06/07/22 (units unknown) (unknown) (unknown) (no date) (unknown) (unknown) 06/22/22 (units unknown) (unknown) (unknown) (no date) (unknown) (unknown) 06/28/22 18:55 (unit s unknown) (unknown) (unknown) (no date) (unknown) (unknown) 06/28/22 (units unknown) (unknown) (unknown) (no date) (unknown) (unknown) 09/10/21 (units unknown) (unknown) (unknown) (no date) (unknown) (unknown) 1 patch topica l DAILY Qty: 30 0RF (units unknown) (unknown) (unknown) (no date) (unknown) (unknown) 1. No acute process. (units unknown) (unknown) (unknown) (no date) (unknown) (unknown) [address] [place] (un its unknown) (unknown) (unknown) (no date) (unknown) (unknown) 18:50 (units unknown) (unknown) (unknown) (no date) (unknown) (unknown) 2. No interval change compared to MRI dated 06/07/2022. (units unknown) (unknown) (unknown) (no date) (unknown) (unknown) 20 mg PO DAILY (unit s unknown) (unknown) (unknown) (no date) (unknown) (unknown) 200 mg PO TID (units unknown) (unknown) (unknown) (no date) (unknown) (unknown) 3. Multilevel degenerative disc and facet disease, as well as ligamentum flavum (units unknown) (unknown) (unknown) (no date) (unknown) (unknown) 4. Postsurgica l sequelae. (units unknown) (unknown) (unknown) (no date) (unknown) (unknown) 5. 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 Multilevel moderate foraminal stenosis as described above. (units unknown) (unknown) (unknown) (no date) (unknown) (unknown) 60 mg PO DAILY (unit s unknown) (unknown) (unknown) (no date) (unknown) (unknown) 7. Moderate ch ronic T12 compression fracture.? (units unknown) (unknown) (unknown) (no date) (unknown) (unknown) 750 mg PO Q8H PRN (Reason: muscle pain) Qty: 30 0RF (units unknown) (unknown) (unknown) (no date) (unknown) (unknown) 990 (units unknown) (unknown) (unknown) (no date) (unknown) (unknown) ? (units unknown) (unknown) (unknown) (no date) (unknown) (unknown) ?No significan t canal stenosis.? Moderate bilateral foraminal stenosis.? No (units unknown) (unknown) (unknown) (no date) (unknown) (unknown) Accession Numb er: [id number] ?? (units unknown) (unknown) (unknown) (no date) (unknown) (unknown) Acct:[id number] (uni ts unknown) (unknown) (unknown) (no date) (unknown) (unknown) Age/Sex: 47 / M (uni ts unknown) (unknown) (unknown) (no date) (unknown) (unknown) Alignment and Curvature:? 5 lumbar type vertebral bodies are present by plain (units unknown) (unknown) (unknown) (no date) (unknown) (unknown) Allergies (units unknown) (unknown) (unknown) (no date) (unknown) (unknown) Allergy/AdvRea c Type Severity Reaction Status Date / Time (units unknown) (unknown) (unknown) (no date) (unknown) (unknown) [place] [address] (units unknown) (unknown) (unknown) (no date) (unknown) (unknown) Approved by: Abilio Gross M.D. on 06/28/2022 at 19:30?? (units unknown) (unknown) (unknown) (no date) (unknown) (unknown) Bone Marrow:? Marrow is of normal overall signal.? No acute vertebral body (units unknown) (unknown) (unknown) (no date) (unknown) (unknown) COMPARISON:? [facility], CR, XR LUMBAR SPINE 2-3V, 06/04/2022, 21:08.? (units unknown) (unknown) (unknown) (no date) (unknown) (unknown) Call,Emiliano (units unknown) (unknown) (unknown) (no date) (unknown) (unknown) Chief Complain t: Back Pain/Injury (units unknown) (unknown) (unknown) (no date) (unknown) (unknown) Close (units unknown) (unknown) (unknown) (no date) (unknown) (unknown) Course (units unknown) (unknown) (unknown) (no date) (unknown) (unknown) : 5 Acct:[id number] (units unknown) (unknown) (unknown) (no date) (unknown) (unknown) : 1975 (uni ts unknown) (unknown) (unknown) (no date) (unknown) (unknown) Date of Servic e: 06/28/22 (units unknown) (unknown) (unknown) (no date) (unknown) (unknown) Departure (units unknown) (unknown) (unknown) (no date) (unknown) (unknown) Nate Gross (units unknown) (unknown) (unknown) (no date) (unknown) (unknown) Dictated by: Abilio Gross M.D. on 06/28/2022 at 19:26 ? ? (units unknown) (unknown) (unknown) (no date) (unknown) (unknown) Discharge Plan (unit s unknown) (unknown) (unknown) (no date) (unknown) (unknown) Discontinued Medications (units unknown) (unknown) (unknown) (no date) (unknown) (unknown) Documented By: [facility] ( units unknown) (unknown) (unknown) (no date) (unknown) (unknown) ED Orders (units unknown) (unknown) (unknown) (no date) (unknown) (unknown) ER Physician: [place] D.O. (units unknown) (unknown) (unknown) (no date) (unknown) (unknown) Emergency Report (un its unknown) (unknown) (unknown) (no date) (unknown) (unknown) Exam (units unknown) (unknown) (unknown) (no date) (unknown) (unknown) FINDINGS:? (units unknown) (unknown) (unknown) (no date) (unknown) (unknown) General (units unknown) (unknown) (unknown) (no date) (unknown) (unknown) HPI - Back Pain/Inju ry (units unknown) (unknown) (unknown) (no date) (unknown) (unknown) Home Medications (un its unknown) (unknown) (unknown) (no date) (unknown) (unknown) Hospital, MR, MR LUMBAR SPINE WO GEORGE, 06/07/2022, 14:37. (units unknown) (unknown) (unknown) (no date) (unknown) (unknown) IMPRESSION:? (units unknown) (unknown) (unknown) (no date) (unknown) (unknown) INDICATIONS:? know lumbar disease, had injection 1 week ago, left leg numb (units unknown) (unknown) (unknown) (no date) (unknown) (unknown) Image quality: ? Degraded by metallic artifact. (units unknown) (unknown) (unknown) (no date) (unknown) (unknown) Imaging Data (units unknown) (unknown) (unknown) (no date) (unknown) (unknown) Initial Vital Signs (units unknown) (unknown) (unknown) (no date) (unknown) (unknown) Initial Vital Signs: (units unknown) (unknown) (unknown) (no date) (unknown) (unknown) [place] [address] (units unknown) (unknown) (unknown) (no date) (unknown) (unknown) [facility] (uni ts unknown) (unknown) (unknown) (no date) (unknown) (unknown) [place] (units unknown) (unknown) (unknown) (no date) (unknown) (unknown) Linda Cook (units unknown) (unknown) (unknown) (no date) (unknown) (unknown) L1-L2:? Mild d isc height loss and desiccation.? Mild facet and ligamentum flavum (units unknown) (unknown) (unknown) (no date) (unknown) (unknown) L2-L3:? Mild d isc height loss.? Moderate disc desiccation.? Mild diffuse disc (units unknown) (unknown) (unknown) (no date) (unknown) (unknown) L3-L4:? [employer]ne[employer] ior fusion.? Interbody device.? Mild diffuse disc bulge.? Mild (units unknown) (unknown) (unknown) (no date) (unknown) (unknown) L4-L5:? [employer]ne[employer] ior fusion.? Interbody device.? Mild bilateral facet hypertrophy.? (units unknown) (unknown) (unknown) (no date) (unknown) (unknown) L5-S1:? [employer] ior fusion.? Interbody device placement.? Mild bilateral facet (units unknown) (unknown) (unknown) (no date) (unknown) (unknown) LS Transforami nal Injection (Signed) (units unknown) (unknown) (unknown) (no date) (unknown) (unknown) Last Admin: 00:13 Dose: 2 tab (units unknown) (unknown) (unknown) (no date) (unknown) (unknown) Launch?Image (units unknown) (unknown) (unknown) (no date) (unknown) (unknown) Loc: ED (units unknown) (unknown) (unknown) (no date) (unknown) (unknown) Lumbar Spine M RI (Signed) (units unknown) (unknown) (unknown) (no date) (unknown) (unknown) Lumbar Spine X -Ray (Signed) (units unknown) (unknown) (unknown) (no date) (unknown) (unknown) Lumbar radiculopathy (units unknown) (unknown) (unknown) (no date) (unknown) (unknown) MDM - Back Pain/Inju ry (units unknown) (unknown) (unknown) (no date) (unknown) (unknown) MR lumbar spin e wo con Stat (units unknown) (unknown) (unknown) (no date) (unknown) (unknown) MR#: [id number] (uni ts unknown) (unknown) (unknown) (no date) (unknown) (unknown) MRI Lumbar: (units unknown) (unknown) (unknown) (no date) (unknown) (unknown) Magnetic Reson ance Report (units unknown) (unknown) (unknown) (no date) (unknown) (unknown) Medical Histor y (units unknown) (unknown) (unknown) (no date) (unknown) (unknown) Medication Instructions Recorded Confirmed (units unknown) (unknown) (unknown) (no date) (unknown) (unknown) Medication Instructions Recorded (units unknown) (unknown) (unknown) (no date) (unknown) (unknown) Mild bilateral foraminal stenosis.? No significant change. (units unknown) (unknown) (unknown) (no date) (unknown) (unknown) Mild facet and ligamentum flavum hypertrophy.? Severe canal stenosis.? Moderate (units unknown) (unknown) (unknown) (no date) (unknown) (unknown) Mild (units unknown) (unknown) (unknown) (no date) (unknown) (unknown) Miscellaneous, Doctor, [Primary Care Provider] (units unknown) (unknown) (unknown) (no date) (unknown) (unknown) No Action (units unknown) (unknown) (unknown) (no date) (unknown) (unknown) Noncontrast sa gittal T1 spin echo and T2 fast echo, sagittal STIR, and T2 fast (units unknown) (unknown) (unknown) (no date) (unknown) (unknown) Ordered: (units unknown) (unknown) (unknown) (no date) (unknown) (unknown) Ordering Provi kael: [place] D.Staci (units unknown) (unknown) (unknown) (no date) (unknown) (unknown) Orders (units unknown) (unknown) (unknown) (no date) (unknown) (unknown) Oxycodone/Acet aminophe n (Oxycodone/Acetaminoph en 5/325 Tablet) 2 tab PO NOW ONE (units unknown) (unknown) (unknown) (no date) (unknown) (unknown) Oxygen Deliver y Method Room Air 06/28/22 18:50 (units unknown) (unknown) (unknown) (no date) (unknown) (unknown) Oxygen Deliver y Method Room Air (units unknown) (unknown) (unknown) (no date) (unknown) (unknown) PROCEDURE:? MR LUMBAR SPINE WO CON (units unknown) (unknown) (unknown) (no date) (unknown) (unknown) Paraspinous So ft Tissues:? No paravertebral masses.? (units unknown) (unknown) (unknown) (no date) (unknown) (unknown) Patient Comments: (u nits unknown) (unknown) (unknown) (no date) (unknown) (unknown) Patient History (uni ts unknown) (unknown) (unknown) (no date) (unknown) (unknown) Patient: Kishor Carrasquillo MR#: [id number] (units unknown) (unknown) (unknown) (no date) (unknown) (unknown) Patient: Kishor Carrasquillo (units unknown) (unknown) (unknown) (no date) (unknown) (unknown) Quentin Arthur (units unknown) (unknown) (unknown) (no date) (unknown) (unknown) Prescriptions: (unit s unknown) (unknown) (unknown) (no date) (unknown) (unknown) Previous Rx's (units unknown) (unknown) (unknown) (no date) (unknown) (unknown) Procedure: MR lumbar spine wo con (units unknown) (unknown) (unknown) (no date) (unknown) (unknown) Pulse Oximetry 99 06/28/22 18:50 (units unknown) (unknown) (unknown) (no date) (unknown) (unknown) Pulse Oximetry 99 (u nits unknown) (unknown) (unknown) (no date) (unknown) (unknown) Pulse Rate 107 H 06/28/22 18:50 (units unknown) (unknown) (unknown) (no date) (unknown) (unknown) Pulse Rate 107 H (un its unknown) (unknown) (unknown) (no date) (unknown) (unknown) Radiologist's Impression: (units unknown) (unknown) (unknown) (no date) (unknown) (unknown) Referrals: (units unknown) (unknown) (unknown) (no date) (unknown) (unknown) Related Data (units unknown) (unknown) (unknown) (no date) (unknown) (unknown) Respiratory Ra te 18 06/28/22 18:50 (units unknown) (unknown) (unknown) (no date) (unknown) (unknown) Respiratory Rate 18 (units unknown) (unknown) (unknown) (no date) (unknown) (unknown) Rx Instructions: (un its unknown) (unknown) (unknown) (no date) (unknown) (unknown) Signed By: (units unknown) (unknown) (unknown) (no date) (unknown) (unknown) Signed (units unknown) (unknown) (unknown) (no date) (unknown) (unknown) Smoking Status : Never smoker (units unknown) (unknown) (unknown) (no date) (unknown) (unknown) Social History (units unknown) (unknown) (unknown) (no date) (unknown) (unknown) Source: patient (uni ts unknown) (unknown) (unknown) (no date) (unknown) (unknown) Spinal Cord:? Conus medullaris terminates at the mid L1 level.? Visualized cord (units unknown) (unknown) (unknown) (no date) (unknown) (unknown) Stated Complai nt: Back pain causing issues with L leg/foot, numbness (units unknown) (unknown) (unknown) (no date) (unknown) (unknown) Stop: 06/29/22 00:01 (units unknown) (unknown) (unknown) (no date) (unknown) (unknown) Substance Use Type: does not use (units unknown) (unknown) (unknown) (no date) (unknown) (unknown) T11-T12 where there is mild cord flattening. (units unknown) (unknown) (unknown) (no date) (unknown) (unknown) T11-T12:? Mild retropulsion at the superior T12 level.? Moderate disc height (units unknown) (unknown) (unknown) (no date) (unknown) (unknown) T12-L1:? Mild disc height loss and desiccation.? No significant canal nor (units unknown) (unknown) (unknown) (no date) (unknown) (unknown) T12. (units unknown) (unknown) (unknown) (no date) (unknown) (unknown) TAKE ONE CAPSU LE BY MOUTH THREE TIMES DAILY (units unknown) (unknown) (unknown) (no date) (unknown) (unknown) TECHNIQUE:? (units unknown) (unknown) (unknown) (no date) (unknown) (unknown) Temperature 97 .7 F 06/28/22 18:50 (units unknown) (unknown) (unknown) (no date) (unknown) (unknown) Temperature 97.7 F ( units unknown) (unknown) (unknown) (no date) (unknown) (unknown) Time Seen by Wesley gann: 06/28/22 18:55 (units unknown) (unknown) (unknown) (no date) (unknown) (unknown) Vital Signs - 8 hr ( units unknown) (unknown) (unknown) (no date) (unknown) (unknown) Vital Signs (units unknown) (unknown) (unknown) (no date) (unknown) (unknown) Vital signs: (units unknown) (unknown) (unknown) (no date) (unknown) (unknown) Aden,Jitendra (units unknown) (unknown) (unknown) (no date) (unknown) (unknown) alcohol intake frequency: 0-2 drinks per day (units unknown) (unknown) (unknown) (no date) (unknown) (unknown) bilateral (units unknown) (unknown) (unknown) (no date) (unknown) (unknown) bulge.? (units unknown) (unknown) (unknown) (no date) (unknown) (unknown) change. (units unknown) (unknown) (unknown) (no date) (unknown) (unknown) compression (units unknown) (unknown) (unknown) (no date) (unknown) (unknown) demonstrates n ormal signal and size.? (units unknown) (unknown) (unknown) (no date) (unknown) (unknown) desiccation.? Mild diffuse disc bulge.? Moderate canal stenosis.? Mild cord (units unknown) (unknown) (unknown) (no date) (unknown) (unknown) diffuse disc bulge/osteophyte.? Mild canal stenosis.? Moderate bilateral (units unknown) (unknown) (unknown) (no date) (unknown) (unknown) duloxetine 60 mg capsule,delayed 60 mg PO DAILY 06/14/22 06/14/22 (units unknown) (unknown) (unknown) (no date) (unknown) (unknown) duloxetine 60 mg capsule,delayed release(DR/EC) (units unknown) (unknown) (unknown) (no date) (unknown) (unknown) endplates of t he lumbar and lower thoracic spine.? Moderate chronic wedging of (units unknown) (unknown) (unknown) (no date) (unknown) (unknown) facet hypertro phy.? Mild canal stenosis.? Moderate bilateral foraminal (units unknown) (unknown) (unknown) (no date) (unknown) (unknown) film.? 2 mm (units unknown) (unknown) (unknown) (no date) (unknown) (unknown) flattening.? (units unknown) (unknown) (unknown) (no date) (unknown) (unknown) foraminal sten osis.? No significant change. (units unknown) (unknown) (unknown) (no date) (unknown) (unknown) foraminal (units unknown) (unknown) (unknown) (no date) (unknown) (unknown) fractures.? Po sterior fusion hardware at L3-S1.? Mild reactive signal throughout (units unknown) (unknown) (unknown) (no date) (unknown) (unknown) hypertrophy an d epidural lipomatosis. (units unknown) (unknown) (unknown) (no date) (unknown) (unknown) hypertrophy. (units unknown) (unknown) (unknown) (no date) (unknown) (unknown) hypertrophy.? Mild canal stenosis.? Mild bilateral foraminal stenosis.? No (units unknown) (unknown) (unknown) (no date) (unknown) (unknown) leave on most painful area for up to 12 hrs (units unknown) (unknown) (unknown) (no date) (unknown) (unknown) lidocaine 5 % topical patch 1 patch topical DAILY #30 ea 06/14/22 (units unknown) (unknown) (unknown) (no date) (unknown) (unknown) lidocaine [Lid oderm] 5 % adhesive patch,medicated (units unknown) (unknown) (unknown) (no date) (unknown) (unknown) loss and (units unknown) (unknown) (unknown) (no date) (unknown) (unknown) may be performed.? ( units unknown) (unknown) (unknown) (no date) (unknown) (unknown) methocarbamol 750 mg tablet 750 mg PO Q8H PRN muscle pain #30 06/07/22 (units unknown) (unknown) (unknown) (no date) (unknown) (unknown) methocarbamol 750 mg tablet (units unknown) (unknown) (unknown) (no date) (unknown) (unknown) milk Allergy M ild Verified 06/23/22 22:24 (units unknown) (unknown) (unknown) (no date) (unknown) (unknown) of retrolisthe sis of L1 on L2, L2 on L3, and L3 on L4. (units unknown) (unknown) (unknown) (no date) (unknown) (unknown) omeprazole 20 mg capsule,delayed 20 mg PO DAILY 06/14/22 06/14/22 (units unknown) (unknown) (unknown) (no date) (unknown) (unknown) omeprazole 20 mg capsule,delayed release(DR/EC) (units unknown) (unknown) (unknown) (no date) (unknown) (unknown) pregabalin 200 mg capsule 200 mg PO TID 06/14/22 06/14/22 (units unknown) (unknown) (unknown) (no date) (unknown) (unknown) pregabalin 200 mg capsule (units unknown) (unknown) (unknown) (no date) (unknown) (unknown) release (units unknown) (unknown) (unknown) (no date) (unknown) (unknown) significant change. (units unknown) (unknown) (unknown) (no date) (unknown) (unknown) significant (units unknown) (unknown) (unknown) (no date) (unknown) (unknown) spin echo (units unknown) (unknown) (unknown) (no date) (unknown) (unknown) stenosis, and at (un its unknown) (unknown) (unknown) (no date) (unknown) (unknown) stenosis. (units unknown) (unknown) (unknown) (no date) (unknown) (unknown) stenosis.? No significant change. (units unknown) (unknown) (unknown) (no date) (unknown) (unknown) stenosis.? No (units unknown) (unknown) (unknown) (no date) (unknown) (unknown) tabs (units unknown) (unknown) (unknown) (no date) (unknown) (unknown) the (units unknown) (unknown) (unknown) (no date) (unknown) (unknown) through the tank mbar spine.? In cases with scoliosis, additional coronal T2 fast (units unknown) (unknown) (unknown) (no date) (unknown) (unknown) tramadol 50 mg tablet 50 mg PO TID PRN pain #30 tabs 06/14/22 (units unknown) (unknown) (unknown) (no date) (unknown) (unknown) tramadol 50 mg table t (units unknown) (unknown) Result panel 34 (unknown) (no date) (unknown) (unknown) (no value) (units unknown) (unknown) (unknown) (no date) (unknown) (unknown) (Lidoderm) (units unknown) (unknown) (unknown) (no date) (unknown) (unknown) 03/09/22 (units unknown) (unknown) (unknown) (no date) (unknown) (unknown) 06/04/22 (units unknown) (unknown) (unknown) (no date) (unknown) (unknown) 06/07/22 (units unknown) (unknown) (unknown) (no date) (unknown) (unknown) 06/22/22 (units unknown) (unknown) (unknown) (no date) (unknown) (unknown) 06/28/22 18:55 (unit s unknown) (unknown) (unknown) (no date) (unknown) (unknown) 06/28/22 (units unknown) (unknown) (unknown) (no date) (unknown) (unknown) 09/10/21 (units unknown) (unknown) (unknown) (no date) (unknown) (unknown) 1 patch topica l DAILY Qty: 30 0RF (units unknown) (unknown) (unknown) (no date) (unknown) (unknown) 1. No acute process. (units unknown) (unknown) (unknown) (no date) (unknown) (unknown) [address] [place] [address] (un its unknown) (unknown) (unknown) (no date) (unknown) (unknown) 18:50 (units unknown) (unknown) (unknown) (no date) (unknown) (unknown) 2. No interval change compared to MRI dated 06/07/2022. (units unknown) (unknown) (unknown) (no date) (unknown) (unknown) 20 mg PO DAILY (unit s unknown) (unknown) (unknown) (no date) (unknown) (unknown) 200 mg PO TID (units unknown) (unknown) (unknown) (no date) (unknown) (unknown) 3. Multilevel degenerative disc and facet disease, as well as ligamentum flavum (units unknown) (unknown) (unknown) (no date) (unknown) (unknown) 4. Postsurgica l sequelae. (units unknown) (unknown) (unknown) (no date) (unknown) (unknown) 5. 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 Multilevel moderate foraminal stenosis as described above. (units unknown) (unknown) (unknown) (no date) (unknown) (unknown) 60 mg PO DAILY (unit s unknown) (unknown) (unknown) (no date) (unknown) (unknown) 7. Moderate ch ronic T12 compression fracture.? (units unknown) (unknown) (unknown) (no date) (unknown) (unknown) 750 mg PO Q8H PRN (Reason: muscle pain) Qty: 30 0RF (units unknown) (unknown) (unknown) (no date) (unknown) (unknown) 990 (units unknown) (unknown) (unknown) (no date) (unknown) (unknown) ? (units unknown) (unknown) (unknown) (no date) (unknown) (unknown) ?No significan t canal stenosis.? Moderate bilateral foraminal stenosis.? No (units unknown) (unknown) (unknown) (no date) (unknown) (unknown) Accession Numb er: [id number] ?? (units unknown) (unknown) (unknown) (no date) (unknown) (unknown) Acct:[id number] (uni ts unknown) (unknown) (unknown) (no date) (unknown) (unknown) Age/Sex: 47 / M (uni ts unknown) (unknown) (unknown) (no date) (unknown) (unknown) Alignment and Curvature:? 5 lumbar type vertebral bodies are present by plain (units unknown) (unknown) (unknown) (no date) (unknown) (unknown) Allergies (units unknown) (unknown) (unknown) (no date) (unknown) (unknown) Allergy/AdvRea c Type Severity Reaction Status Date / Time (units unknown) (unknown) (unknown) (no date) (unknown) (unknown) [place] [address] (units unknown) (unknown) (unknown) (no date) (unknown) (unknown) Approved by: Abilio Gross M.D. on 06/28/2022 at 19:30?? (units unknown) (unknown) (unknown) (no date) (unknown) (unknown) Bone Marrow:? Marrow is of normal overall signal.? No acute vertebral body (units unknown) (unknown) (unknown) (no date) (unknown) (unknown) COMPARISON:? [facility], CR, XR LUMBAR SPINE 2-3V, 06/04/2022, 21:08.? (units unknown) (unknown) (unknown) (no date) (unknown) (unknown) Call,Emiliano (units unknown) (unknown) (unknown) (no date) (unknown) (unknown) Chief Complain t: Back Pain/Injury (units unknown) (unknown) (unknown) (no date) (unknown) (unknown) Close (units unknown) (unknown) (unknown) (no date) (unknown) (unknown) Course (units unknown) (unknown) (unknown) (no date) (unknown) (unknown) : 5 Acct:[id number] (units unknown) (unknown) (unknown) (no date) (unknown) (unknown) : 1975 (uni ts unknown) (unknown) (unknown) (no date) (unknown) (unknown) Date of Servic e: 06/28/22 (units unknown) (unknown) (unknown) (no date) (unknown) (unknown) Departure (units unknown) (unknown) (unknown) (no date) (unknown) (unknown) Nate Gross (units unknown) (unknown) (unknown) (no date) (unknown) (unknown) Dictated by: Abilio Gross M.D. on 06/28/2022 at 19:26 ? ? (units unknown) (unknown) (unknown) (no date) (unknown) (unknown) Discharge Plan (unit s unknown) (unknown) (unknown) (no date) (unknown) (unknown) Discontinued Medications (units unknown) (unknown) (unknown) (no date) (unknown) (unknown) Documented By: [facility] ( units unknown) (unknown) (unknown) (no date) (unknown) (unknown) ED Orders (units unknown) (unknown) (unknown) (no date) (unknown) (unknown) ER Physician: [place] River D.O. (units unknown) (unknown) (unknown) (no date) (unknown) (unknown) Emergency Report (un its unknown) (unknown) (unknown) (no date) (unknown) (unknown) Exam (units unknown) (unknown) (unknown) (no date) (unknown) (unknown) FINDINGS:? (units unknown) (unknown) (unknown) (no date) (unknown) (unknown) General (units unknown) (unknown) (unknown) (no date) (unknown) (unknown) HPI - Back Pain/Inju ry (units unknown) (unknown) (unknown) (no date) (unknown) (unknown) Home Medications (un its unknown) (unknown) (unknown) (no date) (unknown) (unknown) Hospital, MR, MR LUMBAR SPINE WO GEORGE, 06/07/2022, 14:37. (units unknown) (unknown) (unknown) (no date) (unknown) (unknown) IMPRESSION:? (units unknown) (unknown) (unknown) (no date) (unknown) (unknown) INDICATIONS:? know lumbar disease, had injection 1 week ago, left leg numb (units unknown) (unknown) (unknown) (no date) (unknown) (unknown) Image quality: ? Degraded by metallic artifact. (units unknown) (unknown) (unknown) (no date) (unknown) (unknown) Imaging Data (units unknown) (unknown) (unknown) (no date) (unknown) (unknown) Initial Vital Signs (units unknown) (unknown) (unknown) (no date) (unknown) (unknown) Initial Vital Signs: (units unknown) (unknown) (unknown) (no date) (unknown) (unknown) [place] [address] (units unknown) (unknown) (unknown) (no date) (unknown) (unknown) [facility] (uni ts unknown) (unknown) (unknown) (no date) (unknown) (unknown) [place] (units unknown) (unknown) (unknown) (no date) (unknown) (unknown) Linda Cook (units unknown) (unknown) (unknown) (no date) (unknown) (unknown) L1-L2:? Mild d isc height loss and desiccation.? Mild facet and ligamentum flavum (units unknown) (unknown) (unknown) (no date) (unknown) (unknown) L2-L3:? Mild d isc height loss.? Moderate disc desiccation.? Mild diffuse disc (units unknown) (unknown) (unknown) (no date) (unknown) (unknown) L3-L4:? [employer] ior fusion.? Interbody device.? Mild diffuse disc bulge.? Mild (units unknown) (unknown) (unknown) (no date) (unknown) (unknown) L4-L5:? [employer] ior fusion.? Interbody device.? Mild bilateral facet hypertrophy.? (units unknown) (unknown) (unknown) (no date) (unknown) (unknown) L5-S1:? [employer] ior fusion.? Interbody device placement.? Mild bilateral facet (units unknown) (unknown) (unknown) (no date) (unknown) (unknown) LS Transforami nal Injection (Signed) (units unknown) (unknown) (unknown) (no date) (unknown) (unknown) Last Admin: 00:13 Dose: 2 tab (units unknown) (unknown) (unknown) (no date) (unknown) (unknown) Launch?Image (units unknown) (unknown) (unknown) (no date) (unknown) (unknown) Loc: ED (units unknown) (unknown) (unknown) (no date) (unknown) (unknown) Lumbar Spine M RI (Signed) (units unknown) (unknown) (unknown) (no date) (unknown) (unknown) Lumbar Spine X -Ray (Signed) (units unknown) (unknown) (unknown) (no date) (unknown) (unknown) Lumbar radiculopathy (units unknown) (unknown) (unknown) (no date) (unknown) (unknown) MDM - Back Pain/Inju ry (units unknown) (unknown) (unknown) (no date) (unknown) (unknown) MR lumbar spin e wo con Stat (units unknown) (unknown) (unknown) (no date) (unknown) (unknown) MR#: [id number] (uni ts unknown) (unknown) (unknown) (no date) (unknown) (unknown) MRI Lumbar: (units unknown) (unknown) (unknown) (no date) (unknown) (unknown) Magnetic Reson ance Report (units unknown) (unknown) (unknown) (no date) (unknown) (unknown) Medical Histor y (units unknown) (unknown) (unknown) (no date) (unknown) (unknown) Medication Instructions Recorded Confirmed (units unknown) (unknown) (unknown) (no date) (unknown) (unknown) Medication Instructions Recorded (units unknown) (unknown) (unknown) (no date) (unknown) (unknown) Mild bilateral foraminal stenosis.? No significant change. (units unknown) (unknown) (unknown) (no date) (unknown) (unknown) Mild facet and ligamentum flavum hypertrophy.? Severe canal stenosis.? Moderate (units unknown) (unknown) (unknown) (no date) (unknown) (unknown) Mild (units unknown) (unknown) (unknown) (no date) (unknown) (unknown) Miscellaneous, Doctor, [Primary Care Provider] (units unknown) (unknown) (unknown) (no date) (unknown) (unknown) No Action (units unknown) (unknown) (unknown) (no date) (unknown) (unknown) Noncontrast sa gittal T1 spin echo and T2 fast echo, sagittal STIR, and T2 fast (units unknown) (unknown) (unknown) (no date) (unknown) (unknown) Ordered: (units unknown) (unknown) (unknown) (no date) (unknown) (unknown) Ordering Provi kael: [place] D.O. (units unknown) (unknown) (unknown) (no date) (unknown) (unknown) Orders (units unknown) (unknown) (unknown) (no date) (unknown) (unknown) Oxycodone/Acet aminophe n (Oxycodone/Acetaminoph en 5/325 Tablet) 2 tab PO NOW ONE (units unknown) (unknown) (unknown) (no date) (unknown) (unknown) Oxygen Deliver y Method Room Air 06/28/22 18:50 (units unknown) (unknown) (unknown) (no date) (unknown) (unknown) Oxygen Deliver y Method Room Air (units unknown) (unknown) (unknown) (no date) (unknown) (unknown) PROCEDURE:? MR LUMBAR SPINE WO CON (units unknown) (unknown) (unknown) (no date) (unknown) (unknown) Paraspinous So ft Tissues:? No paravertebral masses.? (units unknown) (unknown) (unknown) (no date) (unknown) (unknown) Patient Comments: (u nits unknown) (unknown) (unknown) (no date) (unknown) (unknown) Patient History (uni ts unknown) (unknown) (unknown) (no date) (unknown) (unknown) Patient: Kishor Carrasquillo [place] MR#: [id number] (units unknown) (unknown) (unknown) (no date) (unknown) (unknown) Patient: Kishor Carrasquillo (units unknown) (unknown) (unknown) (no date) (unknown) (unknown) [place] (units unknown) (unknown) (unknown) (no date) (unknown) (unknown) Prescriptions: (unit s unknown) (unknown) (unknown) (no date) (unknown) (unknown) Previous Rx's (units unknown) (unknown) (unknown) (no date) (unknown) (unknown) Procedure: MR lumbar spine wo con (units unknown) (unknown) (unknown) (no date) (unknown) (unknown) Pulse Oximetry 99 06/28/22 18:50 (units unknown) (unknown) (unknown) (no date) (unknown) (unknown) Pulse Oximetry 99 (u nits unknown) (unknown) (unknown) (no date) (unknown) (unknown) Pulse Rate 107 H 06/28/22 18:50 (units unknown) (unknown) (unknown) (no date) (unknown) (unknown) Pulse Rate 107 H (un its unknown) (unknown) (unknown) (no date) (unknown) (unknown) Radiologist's Impression: (units unknown) (unknown) (unknown) (no date) (unknown) (unknown) Referrals: (units unknown) (unknown) (unknown) (no date) (unknown) (unknown) Related Data (units unknown) (unknown) (unknown) (no date) (unknown) (unknown) Respiratory Ra te 18 06/28/22 18:50 (units unknown) (unknown) (unknown) (no date) (unknown) (unknown) Respiratory Rate 18 (units unknown) (unknown) (unknown) (no date) (unknown) (unknown) Rx Instructions: (un its unknown) (unknown) (unknown) (no date) (unknown) (unknown) Signed By: (units unknown) (unknown) (unknown) (no date) (unknown) (unknown) Signed (units unknown) (unknown) (unknown) (no date) (unknown) (unknown) Smoking Status : Never smoker (units unknown) (unknown) (unknown) (no date) (unknown) (unknown) Social History (units unknown) (unknown) (unknown) (no date) (unknown) (unknown) Source: patient (uni ts unknown) (unknown) (unknown) (no date) (unknown) (unknown) Spinal Cord:? Conus medullaris terminates at the mid L1 level.? Visualized cord (units unknown) (unknown) (unknown) (no date) (unknown) (unknown) Stated Complai nt: Back pain causing issues with L leg/foot, numbness (units unknown) (unknown) (unknown) (no date) (unknown) (unknown) Stop: 06/29/22 00:01 (units unknown) (unknown) (unknown) (no date) (unknown) (unknown) Substance Use Type: does not use (units unknown) (unknown) (unknown) (no date) (unknown) (unknown) T11-T12 where there is mild cord flattening. (units unknown) (unknown) (unknown) (no date) (unknown) (unknown) T11-T12:? Mild retropulsion at the superior T12 level.? Moderate disc height (units unknown) (unknown) (unknown) (no date) (unknown) (unknown) T12-L1:? Mild disc height loss and desiccation.? No significant canal nor (units unknown) (unknown) (unknown) (no date) (unknown) (unknown) T12. (units unknown) (unknown) (unknown) (no date) (unknown) (unknown) TAKE ONE CAPSU LE BY MOUTH THREE TIMES DAILY (units unknown) (unknown) (unknown) (no date) (unknown) (unknown) TECHNIQUE:? (units unknown) (unknown) (unknown) (no date) (unknown) (unknown) Temperature 97 .7 F 06/28/22 18:50 (units unknown) (unknown) (unknown) (no date) (unknown) (unknown) Temperature 97.7 F ( units unknown) (unknown) (unknown) (no date) (unknown) (unknown) Time Seen by Wesley gann: 06/28/22 18:55 (units unknown) (unknown) (unknown) (no date) (unknown) (unknown) Vital Signs - 8 hr ( units unknown) (unknown) (unknown) (no date) (unknown) (unknown) Vital Signs (units unknown) (unknown) (unknown) (no date) (unknown) (unknown) Vital signs: (units unknown) (unknown) (unknown) (no date) (unknown) (unknown) Aden,Jitendra (units unknown) (unknown) (unknown) (no date) (unknown) (unknown) alcohol intake frequency: 0-2 drinks per day (units unknown) (unknown) (unknown) (no date) (unknown) (unknown) bilateral (units unknown) (unknown) (unknown) (no date) (unknown) (unknown) bulge.? (units unknown) (unknown) (unknown) (no date) (unknown) (unknown) change. (units unknown) (unknown) (unknown) (no date) (unknown) (unknown) compression (units unknown) (unknown) (unknown) (no date) (unknown) (unknown) demonstrates n ormal signal and size.? (units unknown) (unknown) (unknown) (no date) (unknown) (unknown) desiccation.? Mild diffuse disc bulge.? Moderate canal stenosis.? Mild cord (units unknown) (unknown) (unknown) (no date) (unknown) (unknown) diffuse disc bulge/osteophyte.? Mild canal stenosis.? Moderate bilateral (units unknown) (unknown) (unknown) (no date) (unknown) (unknown) duloxetine 60 mg capsule,delayed 60 mg PO DAILY 06/14/22 06/14/22 (units unknown) (unknown) (unknown) (no date) (unknown) (unknown) duloxetine 60 mg capsule,delayed release(DR/EC) (units unknown) (unknown) (unknown) (no date) (unknown) (unknown) endplates of t he lumbar and lower thoracic spine.? Moderate chronic wedging of (units unknown) (unknown) (unknown) (no date) (unknown) (unknown) facet hypertro phy.? Mild canal stenosis.? Moderate bilateral foraminal (units unknown) (unknown) (unknown) (no date) (unknown) (unknown) film.? 2 mm (units unknown) (unknown) (unknown) (no date) (unknown) (unknown) flattening.? (units unknown) (unknown) (unknown) (no date) (unknown) (unknown) foraminal sten osis.? No significant change. (units unknown) (unknown) (unknown) (no date) (unknown) (unknown) foraminal (units unknown) (unknown) (unknown) (no date) (unknown) (unknown) fractures.? Po sterior fusion hardware at L3-S1.? Mild reactive signal throughout (units unknown) (unknown) (unknown) (no date) (unknown) (unknown) hypertrophy an d epidural lipomatosis. (units unknown) (unknown) (unknown) (no date) (unknown) (unknown) hypertrophy. (units unknown) (unknown) (unknown) (no date) (unknown) (unknown) hypertrophy.? Mild canal stenosis.? Mild bilateral foraminal stenosis.? No (units unknown) (unknown) (unknown) (no date) (unknown) (unknown) leave on most painful area for up to 12 hrs (units unknown) (unknown) (unknown) (no date) (unknown) (unknown) lidocaine 5 % topical patch 1 patch topical DAILY #30 ea 06/14/22 (units unknown) (unknown) (unknown) (no date) (unknown) (unknown) lidocaine [Lid oderm] 5 % adhesive patch,medicated (units unknown) (unknown) (unknown) (no date) (unknown) (unknown) loss and (units unknown) (unknown) (unknown) (no date) (unknown) (unknown) may be performed.? ( units unknown) (unknown) (unknown) (no date) (unknown) (unknown) methocarbamol 750 mg tablet 750 mg PO Q8H PRN muscle pain #30 06/07/22 (units unknown) (unknown) (unknown) (no date) (unknown) (unknown) methocarbamol 750 mg tablet (units unknown) (unknown) (unknown) (no date) (unknown) (unknown) milk Allergy M ild Verified 06/23/22 22:24 (units unknown) (unknown) (unknown) (no date) (unknown) (unknown) of retrolisthe sis of L1 on L2, L2 on L3, and L3 on L4. (units unknown) (unknown) (unknown) (no date) (unknown) (unknown) omeprazole 20 mg capsule,delayed 20 mg PO DAILY 06/14/22 06/14/22 (units unknown) (unknown) (unknown) (no date) (unknown) (unknown) omeprazole 20 mg capsule,delayed release(DR/EC) (units unknown) (unknown) (unknown) (no date) (unknown) (unknown) pregabalin 200 mg capsule 200 mg PO TID 06/14/22 06/14/22 (units unknown) (unknown) (unknown) (no date) (unknown) (unknown) pregabalin 200 mg capsule (units unknown) (unknown) (unknown) (no date) (unknown) (unknown) release (units unknown) (unknown) (unknown) (no date) (unknown) (unknown) significant change. (units unknown) (unknown) (unknown) (no date) (unknown) (unknown) significant (units unknown) (unknown) (unknown) (no date) (unknown) (unknown) spin echo (units unknown) (unknown) (unknown) (no date) (unknown) (unknown) stenosis, and at (un its unknown) (unknown) (unknown) (no date) (unknown) (unknown) stenosis. (units unknown) (unknown) (unknown) (no date) (unknown) (unknown) stenosis.? No significant change. (units unknown) (unknown) (unknown) (no date) (unknown) (unknown) stenosis.? No (units unknown) (unknown) (unknown) (no date) (unknown) (unknown) tabs (units unknown) (unknown) (unknown) (no date) (unknown) (unknown) the (units unknown) (unknown) (unknown) (no date) (unknown) (unknown) through the tank mbar spine.? In cases with scoliosis, additional coronal T2 fast (units unknown) (unknown) (unknown) (no date) (unknown) (unknown) tramadol 50 mg tablet 50 mg PO TID PRN pain #30 tabs 06/14/22 (units unknown) (unknown) (unknown) (no date) (unknown) (unknown) tramadol 50 mg table t (units unknown) (unknown) Result panel 35 (unknown) (no date) (unknown) (unknown) (no value) (units unknown) (unknown) (unknown) (no date) (unknown) (unknown) (Lidoderm) (units unknown) (unknown) (unknown) (no date) (unknown) (unknown) 03/09/22 (units unknown) (unknown) (unknown) (no date) (unknown) (unknown) 06/04/22 (units unknown) (unknown) (unknown) (no date) (unknown) (unknown) 06/07/22 (units unknown) (unknown) (unknown) (no date) (unknown) (unknown) 06/22/22 (units unknown) (unknown) (unknown) (no date) (unknown) (unknown) 06/28/22 18:55 (unit s unknown) (unknown) (unknown) (no date) (unknown) (unknown) 06/28/22 (units unknown) (unknown) (unknown) (no date) (unknown) (unknown) 09/10/21 (units unknown) (unknown) (unknown) (no date) (unknown) (unknown) 1 patch topica l DAILY Qty: 30 0RF (units unknown) (unknown) (unknown) (no date) (unknown) (unknown) 1. No acute process. (units unknown) (unknown) (unknown) (no date) (unknown) (unknown) [address] [place] [address] (un its unknown) (unknown) (unknown) (no date) (unknown) (unknown) 18:50 (units unknown) (unknown) (unknown) (no date) (unknown) (unknown) 2. No interval change compared to MRI dated 06/07/2022. (units unknown) (unknown) (unknown) (no date) (unknown) (unknown) 20 mg PO DAILY (unit s unknown) (unknown) (unknown) (no date) (unknown) (unknown) 200 mg PO TID (units unknown) (unknown) (unknown) (no date) (unknown) (unknown) 3. Multilevel degenerative disc and facet disease, as well as ligamentum flavum (units unknown) (unknown) (unknown) (no date) (unknown) (unknown) 4. Postsurgica l sequelae. (units unknown) (unknown) (unknown) (no date) (unknown) (unknown) 5. 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 Multilevel moderate foraminal stenosis as described above. (units unknown) (unknown) (unknown) (no date) (unknown) (unknown) 60 mg PO DAILY (unit s unknown) (unknown) (unknown) (no date) (unknown) (unknown) 7. Moderate ch ronic T12 compression fracture.? (units unknown) (unknown) (unknown) (no date) (unknown) (unknown) 750 mg PO Q8H PRN (Reason: muscle pain) Qty: 30 0RF (units unknown) (unknown) (unknown) (no date) (unknown) (unknown) 990 (units unknown) (unknown) (unknown) (no date) (unknown) (unknown) ? (units unknown) (unknown) (unknown) (no date) (unknown) (unknown) ?No significan t canal stenosis.? Moderate bilateral foraminal stenosis.? No (units unknown) (unknown) (unknown) (no date) (unknown) (unknown) Accession Numb er: [id number] ?? (units unknown) (unknown) (unknown) (no date) (unknown) (unknown) Acct:[id number] (uni ts unknown) (unknown) (unknown) (no date) (unknown) (unknown) Age/Sex: 47 / M (uni ts unknown) (unknown) (unknown) (no date) (unknown) (unknown) Alignment and Curvature:? 5 lumbar type vertebral bodies are present by plain (units unknown) (unknown) (unknown) (no date) (unknown) (unknown) Allergies (units unknown) (unknown) (unknown) (no date) (unknown) (unknown) Allergy/AdvRea c Type Severity Reaction Status Date / Time (units unknown) (unknown) (unknown) (no date) (unknown) (unknown) [place] [address] (units unknown) (unknown) (unknown) (no date) (unknown) (unknown) Approved by: Abilio Gross M.D. on 06/28/2022 at 19:30?? (units unknown) (unknown) (unknown) (no date) (unknown) (unknown) Bone Marrow:? Marrow is of normal overall signal.? No acute vertebral body (units unknown) (unknown) (unknown) (no date) (unknown) (unknown) COMPARISON:? I [facility], CR, XR LUMBAR SPINE 2-3V, 06/04/2022, 21:08.? (units unknown) (unknown) (unknown) (no date) (unknown) (unknown) Call,Emiliano (units unknown) (unknown) (unknown) (no date) (unknown) (unknown) Chief Complain t: Back Pain/Injury (units unknown) (unknown) (unknown) (no date) (unknown) (unknown) Close (units unknown) (unknown) (unknown) (no date) (unknown) (unknown) Course (units unknown) (unknown) (unknown) (no date) (unknown) (unknown) : 5 Acct:[id number] (units unknown) (unknown) (unknown) (no date) (unknown) (unknown) : 1975 (uni ts unknown) (unknown) (unknown) (no date) (unknown) (unknown) Date of Servic e: 06/28/22 (units unknown) (unknown) (unknown) (no date) (unknown) (unknown) Departure (units unknown) (unknown) (unknown) (no date) (unknown) (unknown) Nate Gross (units unknown) (unknown) (unknown) (no date) (unknown) (unknown) Dictated by: Abilio Gross M.D. on 06/28/2022 at 19:26 ? ? (units unknown) (unknown) (unknown) (no date) (unknown) (unknown) Discharge Plan (unit s unknown) (unknown) (unknown) (no date) (unknown) (unknown) Discontinued Medications (units unknown) (unknown) (unknown) (no date) (unknown) (unknown) Documented By: HNG ( units unknown) (unknown) (unknown) (no date) (unknown) (unknown) ED Orders (units unknown) (unknown) (unknown) (no date) (unknown) (unknown) ER Physician: [place] D.O. (units unknown) (unknown) (unknown) (no date) (unknown) (unknown) Emergency Report (un its unknown) (unknown) (unknown) (no date) (unknown) (unknown) Exam (units unknown) (unknown) (unknown) (no date) (unknown) (unknown) FINDINGS:? (units unknown) (unknown) (unknown) (no date) (unknown) (unknown) General (units unknown) (unknown) (unknown) (no date) (unknown) (unknown) HPI - Back Pain/Inju ry (units unknown) (unknown) (unknown) (no date) (unknown) (unknown) Home Medications (un its unknown) (unknown) (unknown) (no date) (unknown) (unknown) Hospital, MR, MR LUMBAR SPINE WO GEORGE, 06/07/2022, 14:37. (units unknown) (unknown) (unknown) (no date) (unknown) (unknown) IMPRESSION:? (units unknown) (unknown) (unknown) (no date) (unknown) (unknown) INDICATIONS:? know lumbar disease, had injection 1 week ago, left leg numb (units unknown) (unknown) (unknown) (no date) (unknown) (unknown) Image quality: ? Degraded by metallic artifact. (units unknown) (unknown) (unknown) (no date) (unknown) (unknown) Imaging Data (units unknown) (unknown) (unknown) (no date) (unknown) (unknown) Initial Vital Signs (units unknown) (unknown) (unknown) (no date) (unknown) (unknown) Initial Vital Signs: (units unknown) (unknown) (unknown) (no date) (unknown) (unknown) [place] [address] (units unknown) (unknown) (unknown) (no date) (unknown) (unknown) [facility] (uni ts unknown) (unknown) (unknown) (no date) (unknown) (unknown) [place] (units unknown) (unknown) (unknown) (no date) (unknown) (unknown) Linda Cook (units unknown) (unknown) (unknown) (no date) (unknown) (unknown) L1-L2:? Mild d isc height loss and desiccation.? Mild facet and ligamentum flavum (units unknown) (unknown) (unknown) (no date) (unknown) (unknown) L2-L3:? Mild d isc height loss.? Moderate disc desiccation.? Mild diffuse disc (units unknown) (unknown) (unknown) (no date) (unknown) (unknown) L3-L4:? [employer] ior fusion.? Interbody device.? Mild diffuse disc bulge.? Mild (units unknown) (unknown) (unknown) (no date) (unknown) (unknown) L4-L5:? [employer] ior fusion.? Interbody device.? Mild bilateral facet hypertrophy.? (units unknown) (unknown) (unknown) (no date) (unknown) (unknown) L5-S1:? [employer] ior fusion.? Interbody device placement.? Mild bilateral facet (units unknown) (unknown) (unknown) (no date) (unknown) (unknown) LS Transforami nal Injection (Signed) (units unknown) (unknown) (unknown) (no date) (unknown) (unknown) Last Admin: 00:13 Dose: 2 tab (units unknown) (unknown) (unknown) (no date) (unknown) (unknown) Launch?Image (units unknown) (unknown) (unknown) (no date) (unknown) (unknown) Loc: ED (units unknown) (unknown) (unknown) (no date) (unknown) (unknown) Lumbar Spine M RI (Signed) (units unknown) (unknown) (unknown) (no date) (unknown) (unknown) Lumbar Spine X -Ray (Signed) (units unknown) (unknown) (unknown) (no date) (unknown) (unknown) Lumbar radiculopathy (units unknown) (unknown) (unknown) (no date) (unknown) (unknown) MDM - Back Pain/Inju ry (units unknown) (unknown) (unknown) (no date) (unknown) (unknown) MR lumbar spin e wo con Stat (units unknown) (unknown) (unknown) (no date) (unknown) (unknown) MR#: [id number] (uni ts unknown) (unknown) (unknown) (no date) (unknown) (unknown) MRI Lumbar: (units unknown) (unknown) (unknown) (no date) (unknown) (unknown) Magnetic Reson ance Report (units unknown) (unknown) (unknown) (no date) (unknown) (unknown) Medical Histor y (units unknown) (unknown) (unknown) (no date) (unknown) (unknown) Medication Instructions Recorded Confirmed (units unknown) (unknown) (unknown) (no date) (unknown) (unknown) Medication Instructions Recorded (units unknown) (unknown) (unknown) (no date) (unknown) (unknown) Mild bilateral foraminal stenosis.? No significant change. (units unknown) (unknown) (unknown) (no date) (unknown) (unknown) Mild facet and ligamentum flavum hypertrophy.? Severe canal stenosis.? Moderate (units unknown) (unknown) (unknown) (no date) (unknown) (unknown) Mild (units unknown) (unknown) (unknown) (no date) (unknown) (unknown) Miscellaneous, Doctor, [Primary Care Provider] (units unknown) (unknown) (unknown) (no date) (unknown) (unknown) No Action (units unknown) (unknown) (unknown) (no date) (unknown) (unknown) Noncontrast sa gittal T1 spin echo and T2 fast echo, sagittal STIR, and T2 fast (units unknown) (unknown) (unknown) (no date) (unknown) (unknown) Ordered: (units unknown) (unknown) (unknown) (no date) (unknown) (unknown) Ordering Provi kael: [place] D.O. (units unknown) (unknown) (unknown) (no date) (unknown) (unknown) Orders (units unknown) (unknown) (unknown) (no date) (unknown) (unknown) Oxycodone/Acet aminophe n (Oxycodone/Acetaminoph en 5/325 Tablet) 2 tab PO NOW ONE (units unknown) (unknown) (unknown) (no date) (unknown) (unknown) Oxygen Deliver y Method Room Air 06/28/22 18:50 (units unknown) (unknown) (unknown) (no date) (unknown) (unknown) Oxygen Deliver y Method Room Air (units unknown) (unknown) (unknown) (no date) (unknown) (unknown) PROCEDURE:? MR LUMBAR SPINE WO CON (units unknown) (unknown) (unknown) (no date) (unknown) (unknown) Paraspinous So ft Tissues:? No paravertebral masses.? (units unknown) (unknown) (unknown) (no date) (unknown) (unknown) Patient Comments: (u nits unknown) (unknown) (unknown) (no date) (unknown) (unknown) Patient History (uni ts unknown) (unknown) (unknown) (no date) (unknown) (unknown) Patient: [place] Kishor Eduardo MR#: [id number] (units unknown) (unknown) (unknown) (no date) (unknown) (unknown) Patient: Kishor Carrasquillo (units unknown) (unknown) (unknown) (no date) (unknown) (unknown) Quentin Arthur (units unknown) (unknown) (unknown) (no date) (unknown) (unknown) Prescriptions: (unit s unknown) (unknown) (unknown) (no date) (unknown) (unknown) Previous Rx's (units unknown) (unknown) (unknown) (no date) (unknown) (unknown) Procedure: MR lumbar spine wo con (units unknown) (unknown) (unknown) (no date) (unknown) (unknown) Pulse Oximetry 99 06/28/22 18:50 (units unknown) (unknown) (unknown) (no date) (unknown) (unknown) Pulse Oximetry 99 (u nits unknown) (unknown) (unknown) (no date) (unknown) (unknown) Pulse Rate 107 H 06/28/22 18:50 (units unknown) (unknown) (unknown) (no date) (unknown) (unknown) Pulse Rate 107 H (un its unknown) (unknown) (unknown) (no date) (unknown) (unknown) Radiologist's Impression: (units unknown) (unknown) (unknown) (no date) (unknown) (unknown) Referrals: (units unknown) (unknown) (unknown) (no date) (unknown) (unknown) Related Data (units unknown) (unknown) (unknown) (no date) (unknown) (unknown) Respiratory Ra te 18 06/28/22 18:50 (units unknown) (unknown) (unknown) (no date) (unknown) (unknown) Respiratory Rate 18 (units unknown) (unknown) (unknown) (no date) (unknown) (unknown) Rx Instructions: (un its unknown) (unknown) (unknown) (no date) (unknown) (unknown) Signed By: (units unknown) (unknown) (unknown) (no date) (unknown) (unknown) Signed (units unknown) (unknown) (unknown) (no date) (unknown) (unknown) Smoking Status : Never smoker (units unknown) (unknown) (unknown) (no date) (unknown) (unknown) Social History (units unknown) (unknown) (unknown) (no date) (unknown) (unknown) Source: patient (uni ts unknown) (unknown) (unknown) (no date) (unknown) (unknown) Spinal Cord:? Conus medullaris terminates at the mid L1 level.? Visualized cord (units unknown) (unknown) (unknown) (no date) (unknown) (unknown) Stated Complai nt: Back pain causing issues with L leg/foot, numbness (units unknown) (unknown) (unknown) (no date) (unknown) (unknown) Stop: 06/29/22 00:01 (units unknown) (unknown) (unknown) (no date) (unknown) (unknown) Substance Use Type: does not use (units unknown) (unknown) (unknown) (no date) (unknown) (unknown) T11-T12 where there is mild cord flattening. (units unknown) (unknown) (unknown) (no date) (unknown) (unknown) T11-T12:? Mild retropulsion at the superior T12 level.? Moderate disc height (units unknown) (unknown) (unknown) (no date) (unknown) (unknown) T12-L1:? Mild disc height loss and desiccation.? No significant canal nor (units unknown) (unknown) (unknown) (no date) (unknown) (unknown) T12. (units unknown) (unknown) (unknown) (no date) (unknown) (unknown) TAKE ONE CAPSU LE BY MOUTH THREE TIMES DAILY (units unknown) (unknown) (unknown) (no date) (unknown) (unknown) TECHNIQUE:? (units unknown) (unknown) (unknown) (no date) (unknown) (unknown) Temperature 97 .7 F 06/28/22 18:50 (units unknown) (unknown) (unknown) (no date) (unknown) (unknown) Temperature 97.7 F ( units unknown) (unknown) (unknown) (no date) (unknown) (unknown) Time Seen by Wesley gann: 06/28/22 18:55 (units unknown) (unknown) (unknown) (no date) (unknown) (unknown) Vital Signs - 8 hr ( units unknown) (unknown) (unknown) (no date) (unknown) (unknown) Vital Signs (units unknown) (unknown) (unknown) (no date) (unknown) (unknown) Vital signs: (units unknown) (unknown) (unknown) (no date) (unknown) (unknown) AdenJitendra (units unknown) (unknown) (unknown) (no date) (unknown) (unknown) alcohol intake frequency: 0-2 drinks per day (units unknown) (unknown) (unknown) (no date) (unknown) (unknown) bilateral (units unknown) (unknown) (unknown) (no date) (unknown) (unknown) bulge.? (units unknown) (unknown) (unknown) (no date) (unknown) (unknown) change. (units unknown) (unknown) (unknown) (no date) (unknown) (unknown) compression (units unknown) (unknown) (unknown) (no date) (unknown) (unknown) demonstrates n ormal signal and size.? (units unknown) (unknown) (unknown) (no date) (unknown) (unknown) desiccation.? Mild diffuse disc bulge.? Moderate canal stenosis.? Mild cord (units unknown) (unknown) (unknown) (no date) (unknown) (unknown) diffuse disc bulge/osteophyte.? Mild canal stenosis.? Moderate bilateral (units unknown) (unknown) (unknown) (no date) (unknown) (unknown) duloxetine 60 mg capsule,delayed 60 mg PO DAILY 06/14/22 06/14/22 (units unknown) (unknown) (unknown) (no date) (unknown) (unknown) duloxetine 60 mg capsule,delayed release(DR/EC) (units unknown) (unknown) (unknown) (no date) (unknown) (unknown) endplates of t he lumbar and lower thoracic spine.? Moderate chronic wedging of (units unknown) (unknown) (unknown) (no date) (unknown) (unknown) facet hypertro phy.? Mild canal stenosis.? Moderate bilateral foraminal (units unknown) (unknown) (unknown) (no date) (unknown) (unknown) film.? 2 mm (units unknown) (unknown) (unknown) (no date) (unknown) (unknown) flattening.? (units unknown) (unknown) (unknown) (no date) (unknown) (unknown) foraminal sten osis.? No significant change. (units unknown) (unknown) (unknown) (no date) (unknown) (unknown) foraminal (units unknown) (unknown) (unknown) (no date) (unknown) (unknown) fractures.? Po sterior fusion hardware at L3-S1.? Mild reactive signal throughout (units unknown) (unknown) (unknown) (no date) (unknown) (unknown) hypertrophy an d epidural lipomatosis. (units unknown) (unknown) (unknown) (no date) (unknown) (unknown) hypertrophy. (units unknown) (unknown) (unknown) (no date) (unknown) (unknown) hypertrophy.? Mild canal stenosis.? Mild bilateral foraminal stenosis.? No (units unknown) (unknown) (unknown) (no date) (unknown) (unknown) leave on most painful area for up to 12 hrs (units unknown) (unknown) (unknown) (no date) (unknown) (unknown) lidocaine 5 % topical patch 1 patch topical DAILY #30 ea 06/14/22 (units unknown) (unknown) (unknown) (no date) (unknown) (unknown) lidocaine [Lid oderm] 5 % adhesive patch,medicated (units unknown) (unknown) (unknown) (no date) (unknown) (unknown) loss and (units unknown) (unknown) (unknown) (no date) (unknown) (unknown) may be performed.? ( units unknown) (unknown) (unknown) (no date) (unknown) (unknown) methocarbamol 750 mg tablet 750 mg PO Q8H PRN muscle pain #30 06/07/22 (units unknown) (unknown) (unknown) (no date) (unknown) (unknown) methocarbamol 750 mg tablet (units unknown) (unknown) (unknown) (no date) (unknown) (unknown) milk Allergy M ild Verified 06/23/22 22:24 (units unknown) (unknown) (unknown) (no date) (unknown) (unknown) of retrolisthe sis of L1 on L2, L2 on L3, and L3 on L4. (units unknown) (unknown) (unknown) (no date) (unknown) (unknown) omeprazole 20 mg capsule,delayed 20 mg PO DAILY 06/14/22 06/14/22 (units unknown) (unknown) (unknown) (no date) (unknown) (unknown) omeprazole 20 mg capsule,delayed release(DR/EC) (units unknown) (unknown) (unknown) (no date) (unknown) (unknown) pregabalin 200 mg capsule 200 mg PO TID 06/14/22 06/14/22 (units unknown) (unknown) (unknown) (no date) (unknown) (unknown) pregabalin 200 mg capsule (units unknown) (unknown) (unknown) (no date) (unknown) (unknown) release (units unknown) (unknown) (unknown) (no date) (unknown) (unknown) significant change. (units unknown) (unknown) (unknown) (no date) (unknown) (unknown) significant (units unknown) (unknown) (unknown) (no date) (unknown) (unknown) spin echo (units unknown) (unknown) (unknown) (no date) (unknown) (unknown) stenosis, and at (un its unknown) (unknown) (unknown) (no date) (unknown) (unknown) stenosis. (units unknown) (unknown) (unknown) (no date) (unknown) (unknown) stenosis.? No significant change. (units unknown) (unknown) (unknown) (no date) (unknown) (unknown) stenosis.? No (units unknown) (unknown) (unknown) (no date) (unknown) (unknown) tabs (units unknown) (unknown) (unknown) (no date) (unknown) (unknown) the (units unknown) (unknown) (unknown) (no date) (unknown) (unknown) through the tank mbar spine.? In cases with scoliosis, additional coronal T2 fast (units unknown) (unknown) (unknown) (no date) (unknown) (unknown) tramadol 50 mg tablet 50 mg PO TID PRN pain #30 tabs 06/14/22 (units unknown) (unknown) (unknown) (no date) (unknown) (unknown) tramadol 50 mg table t (units unknown) (unknown) Result panel 36 (unknown) (no date) (unknown) (unknown) (no value) (units unknown) (unknown) (unknown) (no date) (unknown) (unknown) (Lidoderm) (units unknown) (unknown) (unknown) (no date) (unknown) (unknown) 03/09/22 (units unknown) (unknown) (unknown) (no date) (unknown) (unknown) 06/04/22 (units unknown) (unknown) (unknown) (no date) (unknown) (unknown) 06/07/22 (units unknown) (unknown) (unknown) (no date) (unknown) (unknown) 06/22/22 (units unknown) (unknown) (unknown) (no date) (unknown) (unknown) 06/28/22 18:55 (unit s unknown) (unknown) (unknown) (no date) (unknown) (unknown) 06/28/22 (units unknown) (unknown) (unknown) (no date) (unknown) (unknown) 09/10/21 (units unknown) (unknown) (unknown) (no date) (unknown) (unknown) 1 patch topica l DAILY Qty: 30 0RF (units unknown) (unknown) (unknown) (no date) (unknown) (unknown) 1. No acute process. (units unknown) (unknown) (unknown) (no date) (unknown) (unknown) [address] [place] [address] (un its unknown) (unknown) (unknown) (no date) (unknown) (unknown) 18:50 (units unknown) (unknown) (unknown) (no date) (unknown) (unknown) 2. No interval change compared to MRI dated 06/07/2022. (units unknown) (unknown) (unknown) (no date) (unknown) (unknown) 20 mg PO DAILY (unit s unknown) (unknown) (unknown) (no date) (unknown) (unknown) 200 mg PO TID (units unknown) (unknown) (unknown) (no date) (unknown) (unknown) 3. Multilevel degenerative disc and facet disease, as well as ligamentum flavum (units unknown) (unknown) (unknown) (no date) (unknown) (unknown) 4. Postsurgica l sequelae. (units unknown) (unknown) (unknown) (no date) (unknown) (unknown) 5. 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 Multilevel moderate foraminal stenosis as described above. (units unknown) (unknown) (unknown) (no date) (unknown) (unknown) 60 mg PO DAILY (unit s unknown) (unknown) (unknown) (no date) (unknown) (unknown) 7. Moderate ch ronic T12 compression fracture.? (units unknown) (unknown) (unknown) (no date) (unknown) (unknown) 750 mg PO Q8H PRN (Reason: muscle pain) Qty: 30 0RF (units unknown) (unknown) (unknown) (no date) (unknown) (unknown) 990 (units unknown) (unknown) (unknown) (no date) (unknown) (unknown) ? (units unknown) (unknown) (unknown) (no date) (unknown) (unknown) ?No significan t canal stenosis.? Moderate bilateral foraminal stenosis.? No (units unknown) (unknown) (unknown) (no date) (unknown) (unknown) Accession Numb er: [id number] ?? (units unknown) (unknown) (unknown) (no date) (unknown) (unknown) Acct:[id number] (uni ts unknown) (unknown) (unknown) (no date) (unknown) (unknown) Age/Sex: 47 / M (uni ts unknown) (unknown) (unknown) (no date) (unknown) (unknown) Alignment and Curvature:? 5 lumbar type vertebral bodies are present by plain (units unknown) (unknown) (unknown) (no date) (unknown) (unknown) Allergies (units unknown) (unknown) (unknown) (no date) (unknown) (unknown) Allergy/AdvRea c Type Severity Reaction Status Date / Time (units unknown) (unknown) (unknown) (no date) (unknown) (unknown) [place] [address] (units unknown) (unknown) (unknown) (no date) (unknown) (unknown) Approved by: Abilio Gross M.D. on 06/28/2022 at 19:30?? (units unknown) (unknown) (unknown) (no date) (unknown) (unknown) Bone Marrow:? Marrow is of normal overall signal.? No acute vertebral body (units unknown) (unknown) (unknown) (no date) (unknown) (unknown) COMPARISON:? I [facility], CR, XR LUMBAR SPINE 2-3V, 06/04/2022, 21:08.? (units unknown) (unknown) (unknown) (no date) (unknown) (unknown) Call,Emiliano (units unknown) (unknown) (unknown) (no date) (unknown) (unknown) Chief Complain t: Back Pain/Injury (units unknown) (unknown) (unknown) (no date) (unknown) (unknown) Close (units unknown) (unknown) (unknown) (no date) (unknown) (unknown) Course (units unknown) (unknown) (unknown) (no date) (unknown) (unknown) : 5 Acct:[id number] (units unknown) (unknown) (unknown) (no date) (unknown) (unknown) : 1975 (uni ts unknown) (unknown) (unknown) (no date) (unknown) (unknown) Date of Servic e: 06/28/22 (units unknown) (unknown) (unknown) (no date) (unknown) (unknown) Departure (units unknown) (unknown) (unknown) (no date) (unknown) (unknown) Nate Gross (units unknown) (unknown) (unknown) (no date) (unknown) (unknown) Dictated by: Abilio Gross M.D. on 06/28/2022 at 19:26 ? ? (units unknown) (unknown) (unknown) (no date) (unknown) (unknown) Discharge Plan (unit s unknown) (unknown) (unknown) (no date) (unknown) (unknown) Discontinued Medications (units unknown) (unknown) (unknown) (no date) (unknown) (unknown) Documented By: HNG ( units unknown) (unknown) (unknown) (no date) (unknown) (unknown) ED Orders (units unknown) (unknown) (unknown) (no date) (unknown) (unknown) ER Physician: [place] D.O. (units unknown) (unknown) (unknown) (no date) (unknown) (unknown) Emergency Report (un its unknown) (unknown) (unknown) (no date) (unknown) (unknown) Exam (units unknown) (unknown) (unknown) (no date) (unknown) (unknown) FINDINGS:? (units unknown) (unknown) (unknown) (no date) (unknown) (unknown) General (units unknown) (unknown) (unknown) (no date) (unknown) (unknown) HPI - Back Pain/Inju ry (units unknown) (unknown) (unknown) (no date) (unknown) (unknown) Home Medications (un its unknown) (unknown) (unknown) (no date) (unknown) (unknown) Hospital, MR, MR LUMBAR SPINE WO GEORGE, 06/07/2022, 14:37. (units unknown) (unknown) (unknown) (no date) (unknown) (unknown) IMPRESSION:? (units unknown) (unknown) (unknown) (no date) (unknown) (unknown) INDICATIONS:? know lumbar disease, had injection 1 week ago, left leg numb (units unknown) (unknown) (unknown) (no date) (unknown) (unknown) Image quality: ? Degraded by metallic artifact. (units unknown) (unknown) (unknown) (no date) (unknown) (unknown) Imaging Data (units unknown) (unknown) (unknown) (no date) (unknown) (unknown) Initial Vital Signs (units unknown) (unknown) (unknown) (no date) (unknown) (unknown) Initial Vital Signs: (units unknown) (unknown) (unknown) (no date) (unknown) (unknown) [place] [address] (units unknown) (unknown) (unknown) (no date) (unknown) (unknown) [facility] (uni ts unknown) (unknown) (unknown) (no date) (unknown) (unknown) [place] (units unknown) (unknown) (unknown) (no date) (unknown) (unknown) Nathan Cookah (units unknown) (unknown) (unknown) (no date) (unknown) (unknown) L1-L2:? Mild d isc height loss and desiccation.? Mild facet and ligamentum flavum (units unknown) (unknown) (unknown) (no date) (unknown) (unknown) L2-L3:? Mild d isc height loss.? Moderate disc desiccation.? Mild diffuse disc (units unknown) (unknown) (unknown) (no date) (unknown) (unknown) L3-L4:? Mannequin [employer] ior fusion.? Interbody device.? Mild diffuse disc bulge.? Mild (units unknown) (unknown) (unknown) (no date) (unknown) (unknown) L4-L5:? Mannequin [employer] Maker ior fusion.? Interbody device.? Mild bilateral facet hypertrophy.? (units unknown) (unknown) (unknown) (no date) (unknown) (unknown) L5-S1:? Mannequin [employer] Maker ior fusion.? Interbody device placement.? Mild bilateral facet (units unknown) (unknown) (unknown) (no date) (unknown) (unknown) LS Transforami nal Injection (Signed) (units unknown) (unknown) (unknown) (no date) (unknown) (unknown) Last Admin: 00:13 Dose: 2 tab (units unknown) (unknown) (unknown) (no date) (unknown) (unknown) Launch?Image (units unknown) (unknown) (unknown) (no date) (unknown) (unknown) Loc: ED (units unknown) (unknown) (unknown) (no date) (unknown) (unknown) Lumbar Spine M RI (Signed) (units unknown) (unknown) (unknown) (no date) (unknown) (unknown) Lumbar Spine X -Ray (Signed) (units unknown) (unknown) (unknown) (no date) (unknown) (unknown) Lumbar radiculopathy (units unknown) (unknown) (unknown) (no date) (unknown) (unknown) MDM - Back Pain/Inju ry (units unknown) (unknown) (unknown) (no date) (unknown) (unknown) MR lumbar spin e wo con Stat (units unknown) (unknown) (unknown) (no date) (unknown) (unknown) MR#: [id number] (uni ts unknown) (unknown) (unknown) (no date) (unknown) (unknown) MRI Lumbar: (units unknown) (unknown) (unknown) (no date) (unknown) (unknown) Magnetic Reson ance Report (units unknown) (unknown) (unknown) (no date) (unknown) (unknown) Medical Histor y (units unknown) (unknown) (unknown) (no date) (unknown) (unknown) Medication Instructions Recorded Confirmed (units unknown) (unknown) (unknown) (no date) (unknown) (unknown) Medication Instructions Recorded (units unknown) (unknown) (unknown) (no date) (unknown) (unknown) Mild bilateral foraminal stenosis.? No significant change. (units unknown) (unknown) (unknown) (no date) (unknown) (unknown) Mild facet and ligamentum flavum hypertrophy.? Severe canal stenosis.? Moderate (units unknown) (unknown) (unknown) (no date) (unknown) (unknown) Mild (units unknown) (unknown) (unknown) (no date) (unknown) (unknown) Miscellaneous, DoctorMD [Primary Care Provider] (units unknown) (unknown) (unknown) (no date) (unknown) (unknown) No Action (units unknown) (unknown) (unknown) (no date) (unknown) (unknown) Noncontrast sa gittal T1 spin echo and T2 fast echo, sagittal STIR, and T2 fast (units unknown) (unknown) (unknown) (no date) (unknown) (unknown) Ordered: (units unknown) (unknown) (unknown) (no date) (unknown) (unknown) Ordering Provi kael: [place] D.O. (units unknown) (unknown) (unknown) (no date) (unknown) (unknown) Orders (units unknown) (unknown) (unknown) (no date) (unknown) (unknown) Oxycodone/Acet aminophe n (Oxycodone/Acetaminoph en 5/325 Tablet) 2 tab PO NOW ONE (units unknown) (unknown) (unknown) (no date) (unknown) (unknown) Oxygen Deliver y Method Room Air 06/28/22 18:50 (units unknown) (unknown) (unknown) (no date) (unknown) (unknown) Oxygen Deliver y Method Room Air (units unknown) (unknown) (unknown) (no date) (unknown) (unknown) PROCEDURE:? MR LUMBAR SPINE WO CON (units unknown) (unknown) (unknown) (no date) (unknown) (unknown) Paraspinous So ft Tissues:? No paravertebral masses.? (units unknown) (unknown) (unknown) (no date) (unknown) (unknown) Patient Comments: (u nits unknown) (unknown) (unknown) (no date) (unknown) (unknown) Patient History (uni ts unknown) (unknown) (unknown) (no date) (unknown) (unknown) Patient: Kishor Carrasquillo MR#: [id number] (units unknown) (unknown) (unknown) (no date) (unknown) (unknown) Patient: Kishor Carrasquillo (units unknown) (unknown) (unknown) (no date) (unknown) (unknown) Quentin Arthur (units unknown) (unknown) (unknown) (no date) (unknown) (unknown) Prescriptions: (unit s unknown) (unknown) (unknown) (no date) (unknown) (unknown) Previous Rx's (units unknown) (unknown) (unknown) (no date) (unknown) (unknown) Procedure: MR lumbar spine wo con (units unknown) (unknown) (unknown) (no date) (unknown) (unknown) Pulse Oximetry 99 06/28/22 18:50 (units unknown) (unknown) (unknown) (no date) (unknown) (unknown) Pulse Oximetry 99 (u nits unknown) (unknown) (unknown) (no date) (unknown) (unknown) Pulse Rate 107 H 06/28/22 18:50 (units unknown) (unknown) (unknown) (no date) (unknown) (unknown) Pulse Rate 107 H (un its unknown) (unknown) (unknown) (no date) (unknown) (unknown) Radiologist's Impression: (units unknown) (unknown) (unknown) (no date) (unknown) (unknown) Referrals: (units unknown) (unknown) (unknown) (no date) (unknown) (unknown) Related Data (units unknown) (unknown) (unknown) (no date) (unknown) (unknown) Respiratory Ra te 18 06/28/22 18:50 (units unknown) (unknown) (unknown) (no date) (unknown) (unknown) Respiratory Rate 18 (units unknown) (unknown) (unknown) (no date) (unknown) (unknown) Rx Instructions: (un its unknown) (unknown) (unknown) (no date) (unknown) (unknown) Signed By: (units unknown) (unknown) (unknown) (no date) (unknown) (unknown) Signed (units unknown) (unknown) (unknown) (no date) (unknown) (unknown) Smoking Status : Never smoker (units unknown) (unknown) (unknown) (no date) (unknown) (unknown) Social History (units unknown) (unknown) (unknown) (no date) (unknown) (unknown) Source: patient (uni ts unknown) (unknown) (unknown) (no date) (unknown) (unknown) Spinal Cord:? Conus medullaris terminates at the mid L1 level.? Visualized cord (units unknown) (unknown) (unknown) (no date) (unknown) (unknown) Stated Complai nt: Back pain causing issues with L leg/foot, numbness (units unknown) (unknown) (unknown) (no date) (unknown) (unknown) Stop: 06/29/22 00:01 (units unknown) (unknown) (unknown) (no date) (unknown) (unknown) Substance Use Type: does not use (units unknown) (unknown) (unknown) (no date) (unknown) (unknown) T11-T12 where there is mild cord flattening. (units unknown) (unknown) (unknown) (no date) (unknown) (unknown) T11-T12:? Mild retropulsion at the superior T12 level.? Moderate disc height (units unknown) (unknown) (unknown) (no date) (unknown) (unknown) T12-L1:? Mild disc height loss and desiccation.? No significant canal nor (units unknown) (unknown) (unknown) (no date) (unknown) (unknown) T12. (units unknown) (unknown) (unknown) (no date) (unknown) (unknown) TAKE ONE CAPSU LE BY MOUTH THREE TIMES DAILY (units unknown) (unknown) (unknown) (no date) (unknown) (unknown) TECHNIQUE:? (units unknown) (unknown) (unknown) (no date) (unknown) (unknown) Temperature 97 .7 F 06/28/22 18:50 (units unknown) (unknown) (unknown) (no date) (unknown) (unknown) Temperature 97.7 F ( units unknown) (unknown) (unknown) (no date) (unknown) (unknown) Time Seen by Wesley gann: 06/28/22 18:55 (units unknown) (unknown) (unknown) (no date) (unknown) (unknown) Vital Signs - 8 hr ( units unknown) (unknown) (unknown) (no date) (unknown) (unknown) Vital Signs (units unknown) (unknown) (unknown) (no date) (unknown) (unknown) Vital signs: (units unknown) (unknown) (unknown) (no date) (unknown) (unknown) Aden,Jitendra (units unknown) (unknown) (unknown) (no date) (unknown) (unknown) alcohol intake frequency: 0-2 drinks per day (units unknown) (unknown) (unknown) (no date) (unknown) (unknown) bilateral (units unknown) (unknown) (unknown) (no date) (unknown) (unknown) bulge.? (units unknown) (unknown) (unknown) (no date) (unknown) (unknown) change. (units unknown) (unknown) (unknown) (no date) (unknown) (unknown) compression (units unknown) (unknown) (unknown) (no date) (unknown) (unknown) demonstrates n ormal signal and size.? (units unknown) (unknown) (unknown) (no date) (unknown) (unknown) desiccation.? Mild diffuse disc bulge.? Moderate canal stenosis.? Mild cord (units unknown) (unknown) (unknown) (no date) (unknown) (unknown) diffuse disc bulge/osteophyte.? Mild canal stenosis.? Moderate bilateral (units unknown) (unknown) (unknown) (no date) (unknown) (unknown) duloxetine 60 mg capsule,delayed 60 mg PO DAILY 06/14/22 06/14/22 (units unknown) (unknown) (unknown) (no date) (unknown) (unknown) duloxetine 60 mg capsule,delayed release(DR/EC) (units unknown) (unknown) (unknown) (no date) (unknown) (unknown) endplates of t he lumbar and lower thoracic spine.? Moderate chronic wedging of (units unknown) (unknown) (unknown) (no date) (unknown) (unknown) facet hypertro phy.? Mild canal stenosis.? Moderate bilateral foraminal (units unknown) (unknown) (unknown) (no date) (unknown) (unknown) film.? 2 mm (units unknown) (unknown) (unknown) (no date) (unknown) (unknown) flattening.? (units unknown) (unknown) (unknown) (no date) (unknown) (unknown) foraminal sten osis.? No significant change. (units unknown) (unknown) (unknown) (no date) (unknown) (unknown) foraminal (units unknown) (unknown) (unknown) (no date) (unknown) (unknown) fractures.? Po sterior fusion hardware at L3-S1.? Mild reactive signal throughout (units unknown) (unknown) (unknown) (no date) (unknown) (unknown) hypertrophy an d epidural lipomatosis. (units unknown) (unknown) (unknown) (no date) (unknown) (unknown) hypertrophy. (units unknown) (unknown) (unknown) (no date) (unknown) (unknown) hypertrophy.? Mild canal stenosis.? Mild bilateral foraminal stenosis.? No (units unknown) (unknown) (unknown) (no date) (unknown) (unknown) leave on most painful area for up to 12 hrs (units unknown) (unknown) (unknown) (no date) (unknown) (unknown) lidocaine 5 % topical patch 1 patch topical DAILY #30 ea 06/14/22 (units unknown) (unknown) (unknown) (no date) (unknown) (unknown) lidocaine [Lid oderm] 5 % adhesive patch,medicated (units unknown) (unknown) (unknown) (no date) (unknown) (unknown) loss and (units unknown) (unknown) (unknown) (no date) (unknown) (unknown) may be performed.? ( units unknown) (unknown) (unknown) (no date) (unknown) (unknown) methocarbamol 750 mg tablet 750 mg PO Q8H PRN muscle pain #30 06/07/22 (units unknown) (unknown) (unknown) (no date) (unknown) (unknown) methocarbamol 750 mg tablet (units unknown) (unknown) (unknown) (no date) (unknown) (unknown) milk Allergy M ild Verified 06/23/22 22:24 (units unknown) (unknown) (unknown) (no date) (unknown) (unknown) of retrolisthe sis of L1 on L2, L2 on L3, and L3 on L4. (units unknown) (unknown) (unknown) (no date) (unknown) (unknown) omeprazole 20 mg capsule,delayed 20 mg PO DAILY 06/14/22 06/14/22 (units unknown) (unknown) (unknown) (no date) (unknown) (unknown) omeprazole 20 mg capsule,delayed release(DR/EC) (units unknown) (unknown) (unknown) (no date) (unknown) (unknown) pregabalin 200 mg capsule 200 mg PO TID 06/14/22 06/14/22 (units unknown) (unknown) (unknown) (no date) (unknown) (unknown) pregabalin 200 mg capsule (units unknown) (unknown) (unknown) (no date) (unknown) (unknown) release (units unknown) (unknown) (unknown) (no date) (unknown) (unknown) significant change. (units unknown) (unknown) (unknown) (no date) (unknown) (unknown) significant (units unknown) (unknown) (unknown) (no date) (unknown) (unknown) spin echo (units unknown) (unknown) (unknown) (no date) (unknown) (unknown) stenosis, and at (un its unknown) (unknown) (unknown) (no date) (unknown) (unknown) stenosis. (units unknown) (unknown) (unknown) (no date) (unknown) (unknown) stenosis.? No significant change. (units unknown) (unknown) (unknown) (no date) (unknown) (unknown) stenosis.? No (units unknown) (unknown) (unknown) (no date) (unknown) (unknown) tabs (units unknown) (unknown) (unknown) (no date) (unknown) (unknown) the (units unknown) (unknown) (unknown) (no date) (unknown) (unknown) through the tank mbar spine.? In cases with scoliosis, additional coronal T2 fast (units unknown) (unknown) (unknown) (no date) (unknown) (unknown) tramadol 50 mg tablet 50 mg PO TID PRN pain #30 tabs 06/14/22 (units unknown) (unknown) (unknown) (no date) (unknown) (unknown) tramadol 50 mg table t (units unknown) (unknown) Result panel 37 (unknown) (no date) (unknown) (unknown) (no value) (units unknown) (unknown) (unknown) (no date) (unknown) (unknown) (Lidoderm) (units unknown) (unknown) (unknown) (no date) (unknown) (unknown) 03/09/22 (units unknown) (unknown) (unknown) (no date) (unknown) (unknown) 06/04/22 (units unknown) (unknown) (unknown) (no date) (unknown) (unknown) 06/07/22 (units unknown) (unknown) (unknown) (no date) (unknown) (unknown) 06/22/22 (units unknown) (unknown) (unknown) (no date) (unknown) (unknown) 06/28/22 18:55 (unit s unknown) (unknown) (unknown) (no date) (unknown) (unknown) 06/28/22 (units unknown) (unknown) (unknown) (no date) (unknown) (unknown) 09/10/21 (units unknown) (unknown) (unknown) (no date) (unknown) (unknown) 1 patch topica l DAILY Qty: 30 0RF (units unknown) (unknown) (unknown) (no date) (unknown) (unknown) 1. No acute process. (units unknown) (unknown) (unknown) (no date) (unknown) (unknown) [address] [place] [address] (un its unknown) (unknown) (unknown) (no date) (unknown) (unknown) 18:50 (units unknown) (unknown) (unknown) (no date) (unknown) (unknown) 2. No interval change compared to MRI dated 06/07/2022. (units unknown) (unknown) (unknown) (no date) (unknown) (unknown) 2/4 and lower extremities. Dorsalis pedis and tibialis pulses are 2+ and lower (units unknown) (unknown) (unknown) (no date) (unknown) (unknown) 20 mg PO DAILY (unit s unknown) (unknown) (unknown) (no date) (unknown) (unknown) 200 mg PO TID (units unknown) (unknown) (unknown) (no date) (unknown) (unknown) 3. Multilevel degenerative disc and facet disease, as well as ligamentum flavum (units unknown) (unknown) (unknown) (no date) (unknown) (unknown) 4. Postsurgica l sequelae. (units unknown) (unknown) (unknown) (no date) (unknown) (unknown) 5. 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 Multilevel moderate foraminal stenosis as described above. (units unknown) (unknown) (unknown) (no date) (unknown) (unknown) 60 mg PO DAILY (unit s unknown) (unknown) (unknown) (no date) (unknown) (unknown) 7. Moderate ch ronic T12 compression fracture.? (units unknown) (unknown) (unknown) (no date) (unknown) (unknown) 750 mg PO Q8H PRN (Reason: muscle pain) Qty: 30 0RF (units unknown) (unknown) (unknown) (no date) (unknown) (unknown) 990 (units unknown) (unknown) (unknown) (no date) (unknown) (unknown) ? (units unknown) (unknown) (unknown) (no date) (unknown) (unknown) ?No significan t canal stenosis.? Moderate bilateral foraminal stenosis.? No (units unknown) (unknown) (unknown) (no date) (unknown) (unknown) ABDOMEN: Soft, nontender. Normoactive bowel sounds all 4 quadrants. No (units unknown) (unknown) (unknown) (no date) (unknown) (unknown) Accession Numb er: [id number] ?? (units unknown) (unknown) (unknown) (no date) (unknown) (unknown) Acct:[id number] (uni ts unknown) (unknown) (unknown) (no date) (unknown) (unknown) Activity Restrictions/Additiona l Instructions: (units unknown) (unknown) (unknown) (no date) (unknown) (unknown) Age/Sex: 47 / M (uni ts unknown) (unknown) (unknown) (no date) (unknown) (unknown) Alignment and Curvature:? 5 lumbar type vertebral bodies are present by plain (units unknown) (unknown) (unknown) (no date) (unknown) (unknown) Allergies (units unknown) (unknown) (unknown) (no date) (unknown) (unknown) Allergy/AdvRea c Type Severity Reaction Status Date / Time (units unknown) (unknown) (unknown) (no date) (unknown) (unknown) PANFILO [place] [address] (units unknown) (unknown) (unknown) (no date) (unknown) (unknown) Approved by: Abilio Gross M.D. on 06/28/2022 at 19:30?? (units unknown) (unknown) (unknown) (no date) (unknown) (unknown) BACK: No cervi jesus, thoracic or lumbar vertebral point tenderness. Patient has (units unknown) (unknown) (unknown) (no date) (unknown) (unknown) Bone Marrow:? Marrow is of normal overall signal.? No acute vertebral body (units unknown) (unknown) (unknown) (no date) (unknown) (unknown) CARDIOVASCULAR : Regular rate and rhythm without murmurs, rubs or gallops. (units unknown) (unknown) (unknown) (no date) (unknown) (unknown) COMPARISON:? [facility], CR, XR LUMBAR SPINE 2-3V, 06/04/2022, 21:08.? (units unknown) (unknown) (unknown) (no date) (unknown) (unknown) Call,Emiliano (units unknown) (unknown) (unknown) (no date) (unknown) (unknown) [facility] for neur osurgery at [place]. Patient states he is had back pain on and (units unknown) (unknown) (unknown) (no date) (unknown) (unknown) Chief Complain t: Back Pain/Injury (units unknown) (unknown) (unknown) (no date) (unknown) (unknown) Clinical Impression: (units unknown) (unknown) (unknown) (no date) (unknown) (unknown) Close (units unknown) (unknown) (unknown) (no date) (unknown) (unknown) Consultation #1: (un its unknown) (unknown) (unknown) (no date) (unknown) (unknown) Consultations (units unknown) (unknown) (unknown) (no date) (unknown) (unknown) Continue your current medications. (units unknown) (unknown) (unknown) (no date) (unknown) (unknown) Course (units unknown) (unknown) (unknown) (no date) (unknown) (unknown) : 5 Acct:[id number] (units unknown) (unknown) (unknown) (no date) (unknown) (unknown) : 1975 (uni ts unknown) (unknown) (unknown) (no date) (unknown) (unknown) Date of Servic e: 06/28/22 (units unknown) (unknown) (unknown) (no date) (unknown) (unknown) Departure (units unknown) (unknown) (unknown) (no date) (unknown) (unknown) Nate Gross (units unknown) (unknown) (unknown) (no date) (unknown) (unknown) Dictated by: Abilio Gross M.D. on 06/28/2022 at 19:26 ? ? (units unknown) (unknown) (unknown) (no date) (unknown) (unknown) Discharge Plan (unit s unknown) (unknown) (unknown) (no date) (unknown) (unknown) Discontinued Medications (units unknown) (unknown) (unknown) (no date) (unknown) (unknown) Documented By: [facility] ( units unknown) (unknown) (unknown) (no date) (unknown) (unknown) ED Orders (units unknown) (unknown) (unknown) (no date) (unknown) (unknown) ER Physician: [place] D.O. (units unknown) (unknown) (unknown) (no date) (unknown) (unknown) EXTREMITIES: N ormal range of motion, no clubbing or edema. Neurovascularly (units unknown) (unknown) (unknown) (no date) (unknown) (unknown) Emergency Report (un its unknown) (unknown) (unknown) (no date) (unknown) (unknown) Exam Narrative: (uni ts unknown) (unknown) (unknown) (no date) (unknown) (unknown) Exam (units unknown) (unknown) (unknown) (no date) (unknown) (unknown) FINDINGS:? (units unknown) (unknown) (unknown) (no date) (unknown) (unknown) Follow-up with your neurosurgery team. (units unknown) (unknown) (unknown) (no date) (unknown) (unknown) GENERAL: Alert and oriented x three, male in mild distress (units unknown) (unknown) (unknown) (no date) (unknown) (unknown) : No CVA tendernes s (units unknown) (unknown) (unknown) (no date) (unknown) (unknown) General (units unknown) (unknown) (unknown) (no date) (unknown) (unknown) HEENT: Head normocephalic, atraumatic, EOMI, pupils reactive, face symmetric, (units unknown) (unknown) (unknown) (no date) (unknown) (unknown) HPI - Back Pain/Inju ry (units unknown) (unknown) (unknown) (no date) (unknown) (unknown) HPI Narrative: (unit s unknown) (unknown) (unknown) (no date) (unknown) (unknown) History of Pre sent Illness (units unknown) (unknown) (unknown) (no date) (unknown) (unknown) Home Medications (un its unknown) (unknown) (unknown) (no date) (unknown) (unknown) Hospital, MR, MR LUMBAR SPINE WO CON, 06/07/2022, 14:37. (units unknown) (unknown) (unknown) (no date) (unknown) (unknown) IMPRESSION:? (units unknown) (unknown) (unknown) (no date) (unknown) (unknown) INDICATIONS:? know lumbar disease, had injection 1 week ago, left leg numb (units unknown) (unknown) (unknown) (no date) (unknown) (unknown) Image quality: ? Degraded by metallic artifact. (units unknown) (unknown) (unknown) (no date) (unknown) (unknown) Imaging Data (units unknown) (unknown) (unknown) (no date) (unknown) (unknown) Initial Vital Signs (units unknown) (unknown) (unknown) (no date) (unknown) (unknown) Initial Vital Signs: (units unknown) (unknown) (unknown) (no date) (unknown) (unknown) [place] [address] (units unknown) (unknown) (unknown) (no date) (unknown) (unknown) [facility] (uni ts unknown) (unknown) (unknown) (no date) (unknown) (unknown) [place] (units unknown) (unknown) (unknown) (no date) (unknown) (unknown) Linda Cook (units unknown) (unknown) (unknown) (no date) (unknown) (unknown) L1-L2:? Mild d isc height loss and desiccation.? Mild facet and ligamentum flavum (units unknown) (unknown) (unknown) (no date) (unknown) (unknown) L2-L3:? Mild d isc height loss.? Moderate disc desiccation.? Mild diffuse disc (units unknown) (unknown) (unknown) (no date) (unknown) (unknown) L3-L4:? Mannequin [employer] Maker ior fusion.? Interbody device.? Mild diffuse disc bulge.? Mild (units unknown) (unknown) (unknown) (no date) (unknown) (unknown) L4-L5:? [employer]ne[employer] ior fusion.? Interbody device.? Mild bilateral facet hypertrophy.? (units unknown) (unknown) (unknown) (no date) (unknown) (unknown) L5-S1:? [employer]ne[employer] ior fusion.? Interbody device placement.? Mild bilateral facet (units unknown) (unknown) (unknown) (no date) (unknown) (unknown) LS Transforami nal Injection (Signed) (units unknown) (unknown) (unknown) (no date) (unknown) (unknown) Last Admin: 00:13 Dose: 2 tab (units unknown) (unknown) (unknown) (no date) (unknown) (unknown) Launch?Image (units unknown) (unknown) (unknown) (no date) (unknown) (unknown) Limitations: n o limitations (units unknown) (unknown) (unknown) (no date) (unknown) (unknown) Loc: ED (units unknown) (unknown) (unknown) (no date) (unknown) (unknown) Lumbar Spine M RI (Signed) (units unknown) (unknown) (unknown) (no date) (unknown) (unknown) Lumbar Spine X -Ray (Signed) (units unknown) (unknown) (unknown) (no date) (unknown) (unknown) Lumbar radiculopathy (units unknown) (unknown) (unknown) (no date) (unknown) (unknown) MDM - Back Pain/Inju ry (units unknown) (unknown) (unknown) (no date) (unknown) (unknown) MDM Narrative (units unknown) (unknown) (unknown) (no date) (unknown) (unknown) MR lumbar spin e wo con Stat (units unknown) (unknown) (unknown) (no date) (unknown) (unknown) MR#: [id number] (uni ts unknown) (unknown) (unknown) (no date) (unknown) (unknown) MRI Lumbar: (units unknown) (unknown) (unknown) (no date) (unknown) (unknown) Magnetic Reson ance Report (units unknown) (unknown) (unknown) (no date) (unknown) (unknown) Medical Histor y (units unknown) (unknown) (unknown) (no date) (unknown) (unknown) Medical decisi on making narrative: (units unknown) (unknown) (unknown) (no date) (unknown) (unknown) Medication Instructions Recorded Confirmed (units unknown) (unknown) (unknown) (no date) (unknown) (unknown) Medication Instructions Recorded (units unknown) (unknown) (unknown) (no date) (unknown) (unknown) Mild bilateral foraminal stenosis.? No significant change. (units unknown) (unknown) (unknown) (no date) (unknown) (unknown) Mild facet and ligamentum flavum hypertrophy.? Severe canal stenosis.? Moderate (units unknown) (unknown) (unknown) (no date) (unknown) (unknown) Mild (units unknown) (unknown) (unknown) (no date) (unknown) (unknown) Miscellaneous, Doctor, [Primary Care Provider] (units unknown) (unknown) (unknown) (no date) (unknown) (unknown) Mode of arriva l: Ambulatory (units unknown) (unknown) (unknown) (no date) (unknown) (unknown) NECK: Supple, full range of motion (units unknown) (unknown) (unknown) (no date) (unknown) (unknown) NEUROLOGICAL: Cranial nerves II through XII grossly intact. Moving all (units unknown) (unknown) (unknown) (no date) (unknown) (unknown) Narrative (units unknown) (unknown) (unknown) (no date) (unknown) (unknown) No Action (units unknown) (unknown) (unknown) (no date) (unknown) (unknown) Noncontrast sa gittal T1 spin echo and T2 fast echo, sagittal STIR, and T2 fast (units unknown) (unknown) (unknown) (no date) (unknown) (unknown) Ordered: (units unknown) (unknown) (unknown) (no date) (unknown) (unknown) Ordering Provi kael: [place] D.O. (units unknown) (unknown) (unknown) (no date) (unknown) (unknown) Orders (units unknown) (unknown) (unknown) (no date) (unknown) (unknown) Oxycodone/Acet aminophe n (Oxycodone/Acetaminoph en 5/325 Tablet) 2 tab PO NOW ONE (units unknown) (unknown) (unknown) (no date) (unknown) (unknown) Oxygen Deliver y Method Room Air 06/28/22 18:50 (units unknown) (unknown) (unknown) (no date) (unknown) (unknown) Oxygen Deliver y Method Room Air (units unknown) (unknown) (unknown) (no date) (unknown) (unknown) PROCEDURE:? MR LUMBAR SPINE WO CON (units unknown) (unknown) (unknown) (no date) (unknown) (unknown) Paraspinous So ft Tissues:? No paravertebral masses.? (units unknown) (unknown) (unknown) (no date) (unknown) (unknown) Patient Comments: (u nits unknown) (unknown) (unknown) (no date) (unknown) (unknown) Patient History (uni ts unknown) (unknown) (unknown) (no date) (unknown) (unknown) Patient: Kishor Carrasquillo MR#: [id number] (units unknown) (unknown) (unknown) (no date) (unknown) (unknown) Patient: Kishor Carrasquillo (units unknown) (unknown) (unknown) (no date) (unknown) (unknown) Quentin Arthur (units unknown) (unknown) (unknown) (no date) (unknown) (unknown) Please return for new or worsening weakness, numbness, loss of bowel or bladder (units unknown) (unknown) (unknown) (no date) (unknown) (unknown) Please take th e disc of images with you. (units unknown) (unknown) (unknown) (no date) (unknown) (unknown) Prescription f or additional pain medication was sent to (units unknown) (unknown) (unknown) (no date) (unknown) (unknown) Prescriptions: (unit s unknown) (unknown) (unknown) (no date) (unknown) (unknown) Previous Rx's (units unknown) (unknown) (unknown) (no date) (unknown) (unknown) Procedure: MR lumbar spine wo con (units unknown) (unknown) (unknown) (no date) (unknown) (unknown) [facility], for Dr. Mosley (units unknown) (unknown) (unknown) (no date) (unknown) (unknown) Pulse Oximetry 99 06/28/22 18:50 (units unknown) (unknown) (unknown) (no date) (unknown) (unknown) Pulse Oximetry 99 (u nits unknown) (unknown) (unknown) (no date) (unknown) (unknown) Pulse Rate 107 H 05/03/23 18:50 (units unknown) (unknown) (unknown) (no date) (unknown) (unknown) Pulse Rate 107 H (un its unknown) (unknown) (unknown) (no date) (unknown) (unknown) RESPIRATORY: B reath sounds equal bilaterally, no wheezes rales or rhonchi. (units unknown) (unknown) (unknown) (no date) (unknown) (unknown) ROS Unobtainab le: All systems reviewed + are unremarkable except as noted in HPI (units unknown) (unknown) (unknown) (no date) (unknown) (unknown) Radiologist's Impression: (units unknown) (unknown) (unknown) (no date) (unknown) (unknown) Rectal exam is deferred. Muscle strength is 5/5 in lower extremities, DTRs are (units unknown) (unknown) (unknown) (no date) (unknown) (unknown) Referrals: (units unknown) (unknown) (unknown) (no date) (unknown) (unknown) Related Data (units unknown) (unknown) (unknown) (no date) (unknown) (unknown) Respiratory Ra te 18 06/28/22 18:50 (units unknown) (unknown) (unknown) (no date) (unknown) (unknown) Respiratory Rate 18 (units unknown) (unknown) (unknown) (no date) (unknown) (unknown) Review of Systems (u nits unknown) (unknown) (unknown) (no date) (unknown) (unknown) Rx Instructions: (un its unknown) (unknown) (unknown) (no date) (unknown) (unknown) SKIN: Warm, dr y, no petechiae, no rashes or lesions. (units unknown) (unknown) (unknown) (no date) (unknown) (unknown) Signed By: (units unknown) (unknown) (unknown) (no date) (unknown) (unknown) Signed (units unknown) (unknown) (unknown) (no date) (unknown) (unknown) Smoking Status : Never smoker (units unknown) (unknown) (unknown) (no date) (unknown) (unknown) Social History (units unknown) (unknown) (unknown) (no date) (unknown) (unknown) Source: patient (uni ts unknown) (unknown) (unknown) (no date) (unknown) (unknown) Spinal Cord:? Conus medullaris terminates at the mid L1 level.? Visualized cord (units unknown) (unknown) (unknown) (no date) (unknown) (unknown) Stated Complai nt: Back pain causing issues with L leg/foot, numbness (units unknown) (unknown) (unknown) (no date) (unknown) (unknown) Stop: 06/29/22 00:01 (units unknown) (unknown) (unknown) (no date) (unknown) (unknown) Substance Use Type: does not use (units unknown) (unknown) (unknown) (no date) (unknown) (unknown) T11-T12 where there is mild cord flattening. (units unknown) (unknown) (unknown) (no date) (unknown) (unknown) T11-T12:? Mild retropulsion at the superior T12 level.? Moderate disc height (units unknown) (unknown) (unknown) (no date) (unknown) (unknown) T12-L1:? Mild disc height loss and desiccation.? No significant canal nor (units unknown) (unknown) (unknown) (no date) (unknown) (unknown) T12. (units unknown) (unknown) (unknown) (no date) (unknown) (unknown) TAKE ONE CAPSU LE BY MOUTH THREE TIMES DAILY (units unknown) (unknown) (unknown) (no date) (unknown) (unknown) TECHNIQUE:? (units unknown) (unknown) (unknown) (no date) (unknown) (unknown) Temperature 97 .7 F 06/28/22 18:50 (units unknown) (unknown) (unknown) (no date) (unknown) (unknown) Temperature 97.7 F ( units unknown) (unknown) (unknown) (no date) (unknown) (unknown) This is a 47 y ear old male with history of back surgery x 3 follows with (units unknown) (unknown) (unknown) (no date) (unknown) (unknown) This is a 47-y ear-old male with acute on chronic paresthesias and states he is (units unknown) (unknown) (unknown) (no date) (unknown) (unknown) This medicatio n can make you sleepy do not drive, perform hazardous activities (units unknown) (unknown) (unknown) (no date) (unknown) (unknown) Time Seen by Wesley gann: 06/28/22 18:55 (units unknown) (unknown) (unknown) (no date) (unknown) (unknown) Vital Signs - 8 hr ( units unknown) (unknown) (unknown) (no date) (unknown) (unknown) Vital Signs (units unknown) (unknown) (unknown) (no date) (unknown) (unknown) Vital signs: (units unknown) (unknown) (unknown) (no date) (unknown) (unknown) Aden,Jitendra (units unknown) (unknown) (unknown) (no date) (unknown) (unknown) alcohol intake frequency: 0-2 drinks per day (units unknown) (unknown) (unknown) (no date) (unknown) (unknown) ambulate and w alk normally. States he has some chronic paresthesias in his (units unknown) (unknown) (unknown) (no date) (unknown) (unknown) and below (units unknown) (unknown) (unknown) (no date) (unknown) (unknown) at L2-L3 where there is severe stenosis and T11-T12 with mild cord flattening (units unknown) (unknown) (unknown) (no date) (unknown) (unknown) at that time t ricy had nerve had significant increased pain and since then has (units unknown) (unknown) (unknown) (no date) (unknown) (unknown) been as helpfu l. He reached out his neurosurgeon they recommended he had MRI, (units unknown) (unknown) (unknown) (no date) (unknown) (unknown) bilateral (units unknown) (unknown) (unknown) (no date) (unknown) (unknown) bulge.? (units unknown) (unknown) (unknown) (no date) (unknown) (unknown) but no acute i nterval change from 06/07/2022 MRI. Patient does have ligamentum (units unknown) (unknown) (unknown) (no date) (unknown) (unknown) cauda equina i s much lower but patient does have significant change. He was in (units unknown) (unknown) (unknown) (no date) (unknown) (unknown) change. (units unknown) (unknown) (unknown) (no date) (unknown) (unknown) changes over t he back or other new or concerning changes. (units unknown) (unknown) (unknown) (no date) (unknown) (unknown) compression (units unknown) (unknown) (unknown) (no date) (unknown) (unknown) consistent wit h cauda equina. Which does show multilevel canal stenosis worst (units unknown) (unknown) (unknown) (no date) (unknown) (unknown) constipated pl ease take a stool softener once to twice daily until stools are (units unknown) (unknown) (unknown) (no date) (unknown) (unknown) contact with h is neurosurgeon earlier today reached out to his neurosurgery (units unknown) (unknown) (unknown) (no date) (unknown) (unknown) control, numbn ess in the groin area, fevers, warmth erythema or other skin (units unknown) (unknown) (unknown) (no date) (unknown) (unknown) demonstrates n ormal signal and size.? (units unknown) (unknown) (unknown) (no date) (unknown) (unknown) department. (units unknown) (unknown) (unknown) (no date) (unknown) (unknown) desiccation.? Mild diffuse disc bulge.? Moderate canal stenosis.? Mild cord (units unknown) (unknown) (unknown) (no date) (unknown) (unknown) dexamethasone today. He states he is had steroids in the past they have not (units unknown) (unknown) (unknown) (no date) (unknown) (unknown) diffuse disc bulge/osteophyte.? Mild canal stenosis.? Moderate bilateral (units unknown) (unknown) (unknown) (no date) (unknown) (unknown) drop on his le ft leg foot for some time. Patient had an injection on his back (units unknown) (unknown) (unknown) (no date) (unknown) (unknown) duloxetine 60 mg capsule,delayed 60 mg PO DAILY 06/14/22 06/14/22 (units unknown) (unknown) (unknown) (no date) (unknown) (unknown) duloxetine 60 mg capsule,delayed release(DR/EC) (units unknown) (unknown) (unknown) (no date) (unknown) (unknown) endplates of t he lumbar and lower thoracic spine.? Moderate chronic wedging of (units unknown) (unknown) (unknown) (no date) (unknown) (unknown) extremities (units unknown) (unknown) (unknown) (no date) (unknown) (unknown) extremities. S ensation is intact in the lower extremities, but decreased left (units unknown) (unknown) (unknown) (no date) (unknown) (unknown) facet hypertro phy.? Mild canal stenosis.? Moderate bilateral foraminal (units unknown) (unknown) (unknown) (no date) (unknown) (unknown) film.? 2 mm (units unknown) (unknown) (unknown) (no date) (unknown) (unknown) flattening.? (units unknown) (unknown) (unknown) (no date) (unknown) (unknown) flavum hypertr ophy and epidural lipomatosis. Multilevel moderate foraminal (units unknown) (unknown) (unknown) (no date) (unknown) (unknown) foraminal sten osis.? No significant change. (units unknown) (unknown) (unknown) (no date) (unknown) (unknown) foraminal (units unknown) (unknown) (unknown) (no date) (unknown) (unknown) fractures.? Po sterior fusion hardware at L3-S1.? Mild reactive signal throughout (units unknown) (unknown) (unknown) (no date) (unknown) (unknown) guarding or re bound, rigidity, no mass (units unknown) (unknown) (unknown) (no date) (unknown) (unknown) had increased numbness into his left leg below the knee more over the calf and (units unknown) (unknown) (unknown) (no date) (unknown) (unknown) he states it w as ordered as an outpatient but he presented to the ED. MRI was (units unknown) (unknown) (unknown) (no date) (unknown) (unknown) healed incisio ns which are clean dry and intact without any warmth, erythema or (units unknown) (unknown) (unknown) (no date) (unknown) (unknown) hypertrophy an d epidural lipomatosis. (units unknown) (unknown) (unknown) (no date) (unknown) (unknown) hypertrophy. (units unknown) (unknown) (unknown) (no date) (unknown) (unknown) hypertrophy.? Mild canal stenosis.? Mild bilateral foraminal stenosis.? No (units unknown) (unknown) (unknown) (no date) (unknown) (unknown) in comparison to right. (units unknown) (unknown) (unknown) (no date) (unknown) (unknown) intact (units unknown) (unknown) (unknown) (no date) (unknown) (unknown) leave on most painful area for up to 12 hrs (units unknown) (unknown) (unknown) (no date) (unknown) (unknown) lidocaine 5 % topical patch 1 patch topical DAILY #30 ea 06/14/22 (units unknown) (unknown) (unknown) (no date) (unknown) (unknown) lidocaine [Lid oderm] 5 % adhesive patch,medicated (units unknown) (unknown) (unknown) (no date) (unknown) (unknown) loss and (units unknown) (unknown) (unknown) (no date) (unknown) (unknown) loss of bowel or bladder control. No weakness he has been able to ambulate. He (units unknown) (unknown) (unknown) (no date) (unknown) (unknown) may be performed.? ( units unknown) (unknown) (unknown) (no date) (unknown) (unknown) methocarbamol 750 mg tablet 750 mg PO Q8H PRN muscle pain #30 06/07/22 (units unknown) (unknown) (unknown) (no date) (unknown) (unknown) methocarbamol 750 mg tablet (units unknown) (unknown) (unknown) (no date) (unknown) (unknown) milk Allergy M ild Verified 06/23/22 22:24 (units unknown) (unknown) (unknown) (no date) (unknown) (unknown) moist mucous membran es (units unknown) (unknown) (unknown) (no date) (unknown) (unknown) noticed signif icant change or increase of numbness below the left calf down (units unknown) (unknown) (unknown) (no date) (unknown) (unknown) obtained. Dana ent did have a dose of his typical pain medication here in the (units unknown) (unknown) (unknown) (no date) (unknown) (unknown) of retrolisthe sis of L1 on L2, L2 on L3, and L3 on L4. (units unknown) (unknown) (unknown) (no date) (unknown) (unknown) off longstandi ng. He is had intermittent paresthesias and has had chronic foot (units unknown) (unknown) (unknown) (no date) (unknown) (unknown) omeprazole 20 mg capsule,delayed 20 mg PO DAILY 06/14/22 06/14/22 (units unknown) (unknown) (unknown) (no date) (unknown) (unknown) omeprazole 20 mg capsule,delayed release(DR/EC) (units unknown) (unknown) (unknown) (no date) (unknown) (unknown) on a dexametha sone taper in his on day 3 or 4 and should be taking 3 tablets of (units unknown) (unknown) (unknown) (no date) (unknown) (unknown) or make any ma carlyle decisions while taking it. This medication will make you (units unknown) (unknown) (unknown) (no date) (unknown) (unknown) over the dorsu m of the foot. Patient states foot drop as worsened he is able to (units unknown) (unknown) (unknown) (no date) (unknown) (unknown) pregabalin 200 mg capsule 200 mg PO TID 06/14/22 06/14/22 (units unknown) (unknown) (unknown) (no date) (unknown) (unknown) pregabalin 200 mg capsule (units unknown) (unknown) (unknown) (no date) (unknown) (unknown) release (units unknown) (unknown) (unknown) (no date) (unknown) (unknown) right leg but not significantly worsened. He denies any saddle anesthesia, no (units unknown) (unknown) (unknown) (no date) (unknown) (unknown) significant change. (units unknown) (unknown) (unknown) (no date) (unknown) (unknown) significant (units unknown) (unknown) (unknown) (no date) (unknown) (unknown) soft and regular. (u nits unknown) (unknown) (unknown) (no date) (unknown) (unknown) spin echo (units unknown) (unknown) (unknown) (no date) (unknown) (unknown) stenosis and m oderate chronic T12 compression fracture. My suspicion for active (units unknown) (unknown) (unknown) (no date) (unknown) (unknown) stenosis, and at (un its unknown) (unknown) (unknown) (no date) (unknown) (unknown) stenosis. (units unknown) (unknown) (unknown) (no date) (unknown) (unknown) stenosis.? No significant change. (units unknown) (unknown) (unknown) (no date) (unknown) (unknown) stenosis.? No (units unknown) (unknown) (unknown) (no date) (unknown) (unknown) swelling. Dana ent has normal range of motion. Patient's gait is normal. (units unknown) (unknown) (unknown) (no date) (unknown) (unknown) tabs (units unknown) (unknown) (unknown) (no date) (unknown) (unknown) takes Soma intermittently, oxycodone for pain control and Tylenol and has been (units unknown) (unknown) (unknown) (no date) (unknown) (unknown) team. (units unknown) (unknown) (unknown) (no date) (unknown) (unknown) the (units unknown) (unknown) (unknown) (no date) (unknown) (unknown) through the [facility] spine.? In cases with scoliosis, additional coronal T2 fast (units unknown) (unknown) (unknown) (no date) (unknown) (unknown) towards his fo ot. He states normal movement, no incontinence or other changes (units unknown) (unknown) (unknown) (no date) (unknown) (unknown) tramadol 50 mg tablet 50 mg PO TID PRN pain #30 tabs 06/14/22 (units unknown) (unknown) (unknown) (no date) (unknown) (unknown) tramadol 50 mg table t (units unknown) (unknown) (unknown) (no date) (unknown) (unknown) with Dr. Facundo eduardo on 06/22 4 bilateral lumbosacral radiculopathy. Patient states (units unknown) (unknown) Result panel 38 (unknown) (no date) (unknown) (unknown) (no value) (units unknown) (unknown) (unknown) (no date) (unknown) (unknown) (Lidoderm) (units unknown) (unknown) (unknown) (no date) (unknown) (unknown) 03/09/22 (units unknown) (unknown) (unknown) (no date) (unknown) (unknown) 03:54 (units unknown) (unknown) (unknown) (no date) (unknown) (unknown) 06/04/22 (units unknown) (unknown) (unknown) (no date) (unknown) (unknown) 06/07/22 (units unknown) (unknown) (unknown) (no date) (unknown) (unknown) 06/22/22 (units unknown) (unknown) (unknown) (no date) (unknown) (unknown) 06/28/22 (units unknown) (unknown) (unknown) (no date) (unknown) (unknown) 06/29/22 (units unknown) (unknown) (unknown) (no date) (unknown) (unknown) 09/10/21 (units unknown) (unknown) (unknown) (no date) (unknown) (unknown) 1 patch topica l DAILY Qty: 30 0RF (units unknown) (unknown) (unknown) (no date) (unknown) (unknown) 1. No acute process. (units unknown) (unknown) (unknown) (no date) (unknown) (unknown) [facility] [address] [place] [address] (un its unknown) (unknown) (unknown) (no date) (unknown) (unknown) 2. No interval change compared to MRI dated 06/07/2022. (units unknown) (unknown) (unknown) (no date) (unknown) (unknown) 2/4 and lower extremities. Dorsalis pedis and tibialis pulses are 2+ and lower (units unknown) (unknown) (unknown) (no date) (unknown) (unknown) 20 mg PO DAILY (unit s unknown) (unknown) (unknown) (no date) (unknown) (unknown) 200 mg PO TID (units unknown) (unknown) (unknown) (no date) (unknown) (unknown) 3. Multilevel degenerative disc and facet disease, as well as ligamentum flavum (units unknown) (unknown) (unknown) (no date) (unknown) (unknown) 4. Postsurgica l sequelae. (units unknown) (unknown) (unknown) (no date) (unknown) (unknown) 5 mg PO Q6H OR N (Reason: pain) Qty: 14 0RF (units unknown) (unknown) (unknown) (no date) (unknown) (unknown) 5. 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 Multilevel moderate foraminal stenosis as described above. (units unknown) (unknown) (unknown) (no date) (unknown) (unknown) 60 mg PO DAILY (unit s unknown) (unknown) (unknown) (no date) (unknown) (unknown) 7. Moderate ch ronic T12 compression fracture.? (units unknown) (unknown) (unknown) (no date) (unknown) (unknown) 750 mg PO Q8H PRN (Reason: muscle pain) Qty: 30 0RF (units unknown) (unknown) (unknown) (no date) (unknown) (unknown) 990 (units unknown) (unknown) (unknown) (no date) (unknown) (unknown) ? (units unknown) (unknown) (unknown) (no date) (unknown) (unknown) ?No significan t canal stenosis.? Moderate bilateral foraminal stenosis.? No (units unknown) (unknown) (unknown) (no date) (unknown) (unknown) ABDOMEN: Soft, nontender. Normoactive bowel sounds all 4 quadrants. No (units unknown) (unknown) (unknown) (no date) (unknown) (unknown) Accession Numb er: [id number] ?? (units unknown) (unknown) (unknown) (no date) (unknown) (unknown) Acct:[id number] (uni ts unknown) (unknown) (unknown) (no date) (unknown) (unknown) Activity Restrictions/Additiona l Instructions: (units unknown) (unknown) (unknown) (no date) (unknown) (unknown) Age/Sex: 47 / M (uni ts unknown) (unknown) (unknown) (no date) (unknown) (unknown) Alignment and Curvature:? 5 lumbar type vertebral bodies are present by plain (units unknown) (unknown) (unknown) (no date) (unknown) (unknown) Allergies (units unknown) (unknown) (unknown) (no date) (unknown) (unknown) Allergy/AdvRea c Type Severity Reaction Status Date / Time (units unknown) (unknown) (unknown) (no date) (unknown) (unknown) PANFILO [place] [id number] (units unknown) (unknown) (unknown) (no date) (unknown) (unknown) Approved by: Abilio Gross M.D. on 06/28/2022 at 19:30?? (units unknown) (unknown) (unknown) (no date) (unknown) (unknown) BACK: No cervi jesus, thoracic or lumbar vertebral point tenderness. Patient has (units unknown) (unknown) (unknown) (no date) (unknown) (unknown) Blood Pressure 131/8 9 (units unknown) (unknown) (unknown) (no date) (unknown) (unknown) Bone Marrow:? Marrow is of normal overall signal.? No acute vertebral body (units unknown) (unknown) (unknown) (no date) (unknown) (unknown) CARDIOVASCULAR : Regular rate and rhythm without murmurs, rubs or gallops. (units unknown) (unknown) (unknown) (no date) (unknown) (unknown) COMPARISON:? [facility], CR, XR LUMBAR SPINE 2-3V, 06/04/2022, 21:08.? (units unknown) (unknown) (unknown) (no date) (unknown) (unknown) Call,Emiliano (units unknown) (unknown) (unknown) (no date) (unknown) (unknown) Called [facility] several times. Have not heard back. Images were pushed (units unknown) (unknown) (unknown) (no date) (unknown) (unknown) [facility] for neur osurgery at [place]. Patient states he is had back pain on and (units unknown) (unknown) (unknown) (no date) (unknown) (unknown) Chief Complain t: Back Pain/Injury (units unknown) (unknown) (unknown) (no date) (unknown) (unknown) Clinical Impression: (units unknown) (unknown) (unknown) (no date) (unknown) (unknown) Close (units unknown) (unknown) (unknown) (no date) (unknown) (unknown) Consultation #1: (un its unknown) (unknown) (unknown) (no date) (unknown) (unknown) Consultations (units unknown) (unknown) (unknown) (no date) (unknown) (unknown) Continue your current medications. (units unknown) (unknown) (unknown) (no date) (unknown) (unknown) Course (units unknown) (unknown) (unknown) (no date) (unknown) (unknown) : 5 Acct:[id number] (units unknown) (unknown) (unknown) (no date) (unknown) (unknown) : 1975 (uni ts unknown) (unknown) (unknown) (no date) (unknown) (unknown) Date of Servic e: 06/28/22 (units unknown) (unknown) (unknown) (no date) (unknown) (unknown) Departure (units unknown) (unknown) (unknown) (no date) (unknown) (unknown) Nate Gross (units unknown) (unknown) (unknown) (no date) (unknown) (unknown) Dictated by: Abilio Gross M.D. on 06/28/2022 at 19:26 ? ? (units unknown) (unknown) (unknown) (no date) (unknown) (unknown) Discharge Plan (unit s unknown) (unknown) (unknown) (no date) (unknown) (unknown) Discontinued Medications (units unknown) (unknown) (unknown) (no date) (unknown) (unknown) Documented By: BS (u nits unknown) (unknown) (unknown) (no date) (unknown) (unknown) Documented By: [facility] ( units unknown) (unknown) (unknown) (no date) (unknown) (unknown) ER Physician: [place] D.O. (units unknown) (unknown) (unknown) (no date) (unknown) (unknown) EXTREMITIES: N ormal range of motion, no clubbing or edema. Neurovascularly (units unknown) (unknown) (unknown) (no date) (unknown) (unknown) Emergency Report (un its unknown) (unknown) (unknown) (no date) (unknown) (unknown) Exam Narrative: (uni ts unknown) (unknown) (unknown) (no date) (unknown) (unknown) Exam (units unknown) (unknown) (unknown) (no date) (unknown) (unknown) FINDINGS:? (units unknown) (unknown) (unknown) (no date) (unknown) (unknown) Follow-up with your neurosurgery team, call first thing this morning. (units unknown) (unknown) (unknown) (no date) (unknown) (unknown) GENERAL: Alert and oriented x three, male in mild distress (units unknown) (unknown) (unknown) (no date) (unknown) (unknown) : No CVA tendernes s (units unknown) (unknown) (unknown) (no date) (unknown) (unknown) General (units unknown) (unknown) (unknown) (no date) (unknown) (unknown) HEENT: Head normocephalic, atraumatic, EOMI, pupils reactive, face symmetric, (units unknown) (unknown) (unknown) (no date) (unknown) (unknown) HPI - Back Pain/Inju ry (units unknown) (unknown) (unknown) (no date) (unknown) (unknown) HPI Narrative: (unit s unknown) (unknown) (unknown) (no date) (unknown) (unknown) History of Pre sent Illness (units unknown) (unknown) (unknown) (no date) (unknown) (unknown) Home Medications (un its unknown) (unknown) (unknown) (no date) (unknown) (unknown) [facility], , MR LUMBAR SPINE WO CON, 06/07/2022, 14:37. (units unknown) (unknown) (unknown) (no date) (unknown) (unknown) IMPRESSION:? (units unknown) (unknown) (unknown) (no date) (unknown) (unknown) INDICATIONS:? know lumbar disease, had injection 1 week ago, left leg numb (units unknown) (unknown) (unknown) (no date) (unknown) (unknown) Image quality: ? Degraded by metallic artifact. (units unknown) (unknown) (unknown) (no date) (unknown) (unknown) Imaging Data (units unknown) (unknown) (unknown) (no date) (unknown) (unknown) Initial Vital Signs (units unknown) (unknown) (unknown) (no date) (unknown) (unknown) Initial Vital Signs: (units unknown) (unknown) (unknown) (no date) (unknown) (unknown) [address] [address] (units unknown) (unknown) (unknown) (no date) (unknown) (unknown) [facility] (uni ts unknown) (unknown) (unknown) (no date) (unknown) (unknown) [place] (units unknown) (unknown) (unknown) (no date) (unknown) (unknown) [facility] (units unknown) (unknown) (unknown) (no date) (unknown) (unknown) L1-L2:? Mild d isc height loss and desiccation.? Mild facet and ligamentum flavum (units unknown) (unknown) (unknown) (no date) (unknown) (unknown) L2-L3:? Mild d isc height loss.? Moderate disc desiccation.? Mild diffuse disc (units unknown) (unknown) (unknown) (no date) (unknown) (unknown) L3-L4:? [employer] ior fusion.? Interbody device.? Mild diffuse disc bulge.? Mild (units unknown) (unknown) (unknown) (no date) (unknown) (unknown) L4-L5:? [employer] ior fusion.? Interbody device.? Mild bilateral facet hypertrophy.? (units unknown) (unknown) (unknown) (no date) (unknown) (unknown) L5-S1:? [employer] ior fusion.? Interbody device placement.? Mild bilateral facet (units unknown) (unknown) (unknown) (no date) (unknown) (unknown) LS Transforami nal Injection (Signed) (units unknown) (unknown) (unknown) (no date) (unknown) (unknown) Last Admin: 00:13 Dose: 2 tab (units unknown) (unknown) (unknown) (no date) (unknown) (unknown) Last Admin: 03:49 Dose: 2 tab (units unknown) (unknown) (unknown) (no date) (unknown) (unknown) Launch?Image (units unknown) (unknown) (unknown) (no date) (unknown) (unknown) Limitations: n o limitations (units unknown) (unknown) (unknown) (no date) (unknown) (unknown) Loc: ED (units unknown) (unknown) (unknown) (no date) (unknown) (unknown) Lumbar Spine M RI (Signed) (units unknown) (unknown) (unknown) (no date) (unknown) (unknown) Lumbar Spine X -Ray (Signed) (units unknown) (unknown) (unknown) (no date) (unknown) (unknown) Lumbar radiculopathy (units unknown) (unknown) (unknown) (no date) (unknown) (unknown) MDM - Back Pain/Inju ry (units unknown) (unknown) (unknown) (no date) (unknown) (unknown) MDM Narrative (units unknown) (unknown) (unknown) (no date) (unknown) (unknown) MR#: [id number] (uni ts unknown) (unknown) (unknown) (no date) (unknown) (unknown) MRI Lumbar: (units unknown) (unknown) (unknown) (no date) (unknown) (unknown) Magnetic Reson ance Report (units unknown) (unknown) (unknown) (no date) (unknown) (unknown) Medical Histor y (units unknown) (unknown) (unknown) (no date) (unknown) (unknown) Medical decisi on making narrative: (units unknown) (unknown) (unknown) (no date) (unknown) (unknown) Medication Instructions Recorded Confirmed (units unknown) (unknown) (unknown) (no date) (unknown) (unknown) Medication Instructions Recorded (units unknown) (unknown) (unknown) (no date) (unknown) (unknown) Mild bilateral foraminal stenosis.? No significant change. (units unknown) (unknown) (unknown) (no date) (unknown) (unknown) Mild facet and ligamentum flavum hypertrophy.? Severe canal stenosis.? Moderate (units unknown) (unknown) (unknown) (no date) (unknown) (unknown) Mild (units unknown) (unknown) (unknown) (no date) (unknown) (unknown) Miscellaneous, Doctor, [Primary Care Provider] (units unknown) (unknown) (unknown) (no date) (unknown) (unknown) Mode of arriva l: Ambulatory (units unknown) (unknown) (unknown) (no date) (unknown) (unknown) NECK: Supple, full range of motion (units unknown) (unknown) (unknown) (no date) (unknown) (unknown) NEUROLOGICAL: Cranial nerves II through XII grossly intact. Moving all (units unknown) (unknown) (unknown) (no date) (unknown) (unknown) Narrative (units unknown) (unknown) (unknown) (no date) (unknown) (unknown) New (units unknown) (unknown) (unknown) (no date) (unknown) (unknown) No Action (units unknown) (unknown) (unknown) (no date) (unknown) (unknown) Noncontrast sa gittal T1 spin echo and T2 fast echo, sagittal STIR, and T2 fast (units unknown) (unknown) (unknown) (no date) (unknown) (unknown) Ordered: (units unknown) (unknown) (unknown) (no date) (unknown) (unknown) Ordering Kris kael: [place] [facility] (units unknown) (unknown) (unknown) (no date) (unknown) (unknown) Orders (units unknown) (unknown) (unknown) (no date) (unknown) (unknown) Oxycodone/Acet aminophe n (Oxycodone/Acetaminoph en 5/325 Tablet) 2 tab PO NOW ONE (units unknown) (unknown) (unknown) (no date) (unknown) (unknown) Oxygen Deliver y Method Room Air 06/28/22 18:50 (units unknown) (unknown) (unknown) (no date) (unknown) (unknown) Oxygen Deliver y Method Room Air (units unknown) (unknown) (unknown) (no date) (unknown) (unknown) PROCEDURE:? MR LUMBAR SPINE WO CON (units unknown) (unknown) (unknown) (no date) (unknown) (unknown) Paraspinous So ft Tissues:? No paravertebral masses.? (units unknown) (unknown) (unknown) (no date) (unknown) (unknown) Patient Comments: (u nits unknown) (unknown) (unknown) (no date) (unknown) (unknown) Patient Dispos ition: Home (units unknown) (unknown) (unknown) (no date) (unknown) (unknown) Patient History (uni ts unknown) (unknown) (unknown) (no date) (unknown) (unknown) Patient: CarrasquilloKishor Vale MR#: [id number] (units unknown) (unknown) (unknown) (no date) (unknown) (unknown) Patient: Kishor Carrasquillo (units unknown) (unknown) (unknown) (no date) (unknown) (unknown) Quentin Arthur (units unknown) (unknown) (unknown) (no date) (unknown) (unknown) Please return for new or worsening weakness, numbness, loss of bowel or bladder (units unknown) (unknown) (unknown) (no date) (unknown) (unknown) Please take th e disc of images with you. (units unknown) (unknown) (unknown) (no date) (unknown) (unknown) Prescription f or additional pain medication was sent to [email or web address] in [place]. (units unknown) (unknown) (unknown) (no date) (unknown) (unknown) Prescriptions: (unit s unknown) (unknown) (unknown) (no date) (unknown) (unknown) Previous Rx's (units unknown) (unknown) (unknown) (no date) (unknown) (unknown) Procedure: MR lumbar spine wo con (units unknown) (unknown) (unknown) (no date) (unknown) (unknown) [facility], for Dr. Mosley (units unknown) (unknown) (unknown) (no date) (unknown) (unknown) Pulse Oximetry 98 (u nits unknown) (unknown) (unknown) (no date) (unknown) (unknown) Pulse Oximetry 99 06/28/22 18:50 (units unknown) (unknown) (unknown) (no date) (unknown) (unknown) Pulse Rate 107 H 06/28/22 18:50 (units unknown) (unknown) (unknown) (no date) (unknown) (unknown) Pulse Rate 66 (units unknown) (unknown) (unknown) (no date) (unknown) (unknown) RESPIRATORY: B reath sounds equal bilaterally, no wheezes rales or rhonchi. (units unknown) (unknown) (unknown) (no date) (unknown) (unknown) ROS Unobtainab le: All systems reviewed + are unremarkable except as noted in HPI (units unknown) (unknown) (unknown) (no date) (unknown) (unknown) Radiologist's Impression: (units unknown) (unknown) (unknown) (no date) (unknown) (unknown) Rectal exam is deferred. Muscle strength is 5/5 in lower extremities, DTRs are (units unknown) (unknown) (unknown) (no date) (unknown) (unknown) Referrals: (units unknown) (unknown) (unknown) (no date) (unknown) (unknown) Related Data (units unknown) (unknown) (unknown) (no date) (unknown) (unknown) Respiratory Rate 16 (units unknown) (unknown) (unknown) (no date) (unknown) (unknown) Respiratory Ra te 18 06/28/22 18:50 (units unknown) (unknown) (unknown) (no date) (unknown) (unknown) Review of Systems (u nits unknown) (unknown) (unknown) (no date) (unknown) (unknown) Rx Instructions: (un its unknown) (unknown) (unknown) (no date) (unknown) (unknown) SKIN: Warm, dr y, no petechiae, no rashes or lesions. (units unknown) (unknown) (unknown) (no date) (unknown) (unknown) Signed By: (units unknown) (unknown) (unknown) (no date) (unknown) (unknown) Signed (units unknown) (unknown) (unknown) (no date) (unknown) (unknown) Smoking Status : Never smoker (units unknown) (unknown) (unknown) (no date) (unknown) (unknown) Social History (units unknown) (unknown) (unknown) (no date) (unknown) (unknown) Source: patient (uni ts unknown) (unknown) (unknown) (no date) (unknown) (unknown) Spinal Cord:? Conus medullaris terminates at the mid L1 level.? Visualized cord (units unknown) (unknown) (unknown) (no date) (unknown) (unknown) Stand Alone Fo lorraine: Patient Portal/API (units unknown) (unknown) (unknown) (no date) (unknown) (unknown) Stated Complai nt: Back pain causing issues with L leg/foot, numbness (units unknown) (unknown) (unknown) (no date) (unknown) (unknown) Stop: 06/29/22 00:01 (units unknown) (unknown) (unknown) (no date) (unknown) (unknown) Stop: 06/29/22 03:45 (units unknown) (unknown) (unknown) (no date) (unknown) (unknown) Substance Use Type: does not use (units unknown) (unknown) (unknown) (no date) (unknown) (unknown) T11-T12 where there is mild cord flattening. (units unknown) (unknown) (unknown) (no date) (unknown) (unknown) T11-T12:? Mild retropulsion at the superior T12 level.? Moderate disc height (units unknown) (unknown) (unknown) (no date) (unknown) (unknown) T12-L1:? Mild disc height loss and desiccation.? No significant canal nor (units unknown) (unknown) (unknown) (no date) (unknown) (unknown) T12. (units unknown) (unknown) (unknown) (no date) (unknown) (unknown) TAKE ONE CAPSU LE BY MOUTH THREE TIMES DAILY (units unknown) (unknown) (unknown) (no date) (unknown) (unknown) TECHNIQUE:? (units unknown) (unknown) (unknown) (no date) (unknown) (unknown) Temperature 97 .7 F 06/28/22 18:50 (units unknown) (unknown) (unknown) (no date) (unknown) (unknown) This is a 47 y ear old male with history of back surgery x 3 follows with (units unknown) (unknown) (unknown) (no date) (unknown) (unknown) This is a 47-y ear-old male with acute on chronic paresthesias and states he is (units unknown) (unknown) (unknown) (no date) (unknown) (unknown) This medicatio n can make you sleepy do not drive, perform hazardous activities (units unknown) (unknown) (unknown) (no date) (unknown) (unknown) Time Seen by Wesley gann: 06/28/22 18:55 (units unknown) (unknown) (unknown) (no date) (unknown) (unknown) Vital Signs - 8 hr ( units unknown) (unknown) (unknown) (no date) (unknown) (unknown) Vital Signs (units unknown) (unknown) (unknown) (no date) (unknown) (unknown) Vital signs: (units unknown) (unknown) (unknown) (no date) (unknown) (unknown) Aden,Jitendra (units unknown) (unknown) (unknown) (no date) (unknown) (unknown) alcohol intake frequency: 0-2 drinks per day (units unknown) (unknown) (unknown) (no date) (unknown) (unknown) ambulate and w alk normally. States he has some chronic paresthesias in his (units unknown) (unknown) (unknown) (no date) (unknown) (unknown) and below (units unknown) (unknown) (unknown) (no date) (unknown) (unknown) at L2-L3 where there is severe stenosis and T11-T12 with mild cord flattening (units unknown) (unknown) (unknown) (no date) (unknown) (unknown) at that time t juan antonio had nerve had significant increased pain and since then has (units unknown) (unknown) (unknown) (no date) (unknown) (unknown) been as helpfu l. He reached out his neurosurgeon they recommended he had MRI, (units unknown) (unknown) (unknown) (no date) (unknown) (unknown) bilateral (units unknown) (unknown) (unknown) (no date) (unknown) (unknown) bulge.? (units unknown) (unknown) (unknown) (no date) (unknown) (unknown) but no acute i nterval change from 06/07/2022 MRI. Patient does have ligamentum (units unknown) (unknown) (unknown) (no date) (unknown) (unknown) cauda equina i s much lower but patient does have significant change. He was in (units unknown) (unknown) (unknown) (no date) (unknown) (unknown) change. (units unknown) (unknown) (unknown) (no date) (unknown) (unknown) changes over t he back or other new or concerning changes. (units unknown) (unknown) (unknown) (no date) (unknown) (unknown) compression (units unknown) (unknown) (unknown) (no date) (unknown) (unknown) consistent wit h cauda equina. Which does show multilevel canal stenosis worst (units unknown) (unknown) (unknown) (no date) (unknown) (unknown) constipated pl ease take a stool softener once to twice daily until stools are (units unknown) (unknown) (unknown) (no date) (unknown) (unknown) contact with h is neurosurgeon earlier today reached out to his neurosurgery (units unknown) (unknown) (unknown) (no date) (unknown) (unknown) control, numbn ess in the groin area, fevers, warmth erythema or other skin (units unknown) (unknown) (unknown) (no date) (unknown) (unknown) demonstrates n ormal signal and size.? (units unknown) (unknown) (unknown) (no date) (unknown) (unknown) department. (units unknown) (unknown) (unknown) (no date) (unknown) (unknown) desiccation.? Mild diffuse disc bulge.? Moderate canal stenosis.? Mild cord (units unknown) (unknown) (unknown) (no date) (unknown) (unknown) dexamethasone today. He states he is had steroids in the past they have not (units unknown) (unknown) (unknown) (no date) (unknown) (unknown) diffuse disc bulge/osteophyte.? Mild canal stenosis.? Moderate bilateral (units unknown) (unknown) (unknown) (no date) (unknown) (unknown) does not. (units unknown) (unknown) (unknown) (no date) (unknown) (unknown) drop on his le ft leg foot for some time. Patient had an injection on his back (units unknown) (unknown) (unknown) (no date) (unknown) (unknown) duloxetine 60 mg capsule,delayed 60 mg PO DAILY 06/14/22 06/14/22 (units unknown) (unknown) (unknown) (no date) (unknown) (unknown) duloxetine 60 mg capsule,delayed release(DR/EC) (units unknown) (unknown) (unknown) (no date) (unknown) (unknown) endplates of t he lumbar and lower thoracic spine.? Moderate chronic wedging of (units unknown) (unknown) (unknown) (no date) (unknown) (unknown) extremities (units unknown) (unknown) (unknown) (no date) (unknown) (unknown) extremities. S ensation is intact in the lower extremities, but decreased left (units unknown) (unknown) (unknown) (no date) (unknown) (unknown) facet hypertro phy.? Mild canal stenosis.? Moderate bilateral foraminal (units unknown) (unknown) (unknown) (no date) (unknown) (unknown) film.? 2 mm (units unknown) (unknown) (unknown) (no date) (unknown) (unknown) flattening.? (units unknown) (unknown) (unknown) (no date) (unknown) (unknown) flavum hypertr ophy and epidural lipomatosis. Multilevel moderate foraminal (units unknown) (unknown) (unknown) (no date) (unknown) (unknown) foraminal sten osis.? No significant change. (units unknown) (unknown) (unknown) (no date) (unknown) (unknown) foraminal (units unknown) (unknown) (unknown) (no date) (unknown) (unknown) fractures.? Po sterior fusion hardware at L3-S1.? Mild reactive signal throughout (units unknown) (unknown) (unknown) (no date) (unknown) (unknown) guarding or re bound, rigidity, no mass (units unknown) (unknown) (unknown) (no date) (unknown) (unknown) had increased numbness into his left leg below the knee more over the calf and (units unknown) (unknown) (unknown) (no date) (unknown) (unknown) he states it w as ordered as an outpatient but he presented to the ED. MRI was (units unknown) (unknown) (unknown) (no date) (unknown) (unknown) healed incisio ns which are clean dry and intact without any warmth, erythema or (units unknown) (unknown) (unknown) (no date) (unknown) (unknown) hypertrophy an d epidural lipomatosis. (units unknown) (unknown) (unknown) (no date) (unknown) (unknown) hypertrophy. (units unknown) (unknown) (unknown) (no date) (unknown) (unknown) hypertrophy.? Mild canal stenosis.? Mild bilateral foraminal stenosis.? No (units unknown) (unknown) (unknown) (no date) (unknown) (unknown) in comparison to right. (units unknown) (unknown) (unknown) (no date) (unknown) (unknown) intact (units unknown) (unknown) (unknown) (no date) (unknown) (unknown) leave on most painful area for up to 12 hrs (units unknown) (unknown) (unknown) (no date) (unknown) (unknown) lidocaine 5 % topical patch 1 patch topical DAILY #30 ea 06/14/22 (units unknown) (unknown) (unknown) (no date) (unknown) (unknown) lidocaine [Lid oderm] 5 % adhesive patch,medicated (units unknown) (unknown) (unknown) (no date) (unknown) (unknown) loss and (units unknown) (unknown) (unknown) (no date) (unknown) (unknown) loss of bowel or bladder control. No weakness he has been able to ambulate. He (units unknown) (unknown) (unknown) (no date) (unknown) (unknown) may be performed.? ( units unknown) (unknown) (unknown) (no date) (unknown) (unknown) methocarbamol 750 mg tablet 750 mg PO Q8H PRN muscle pain #30 06/07/22 (units unknown) (unknown) (unknown) (no date) (unknown) (unknown) methocarbamol 750 mg tablet (units unknown) (unknown) (unknown) (no date) (unknown) (unknown) milk Allergy M ild Verified 06/23/22 22:24 (units unknown) (unknown) (unknown) (no date) (unknown) (unknown) moist mucous membran es (units unknown) (unknown) (unknown) (no date) (unknown) (unknown) noticed signif icant change or increase of numbness below the left calf down (units unknown) (unknown) (unknown) (no date) (unknown) (unknown) obtained. Dana ent did have a dose of his typical pain medication here in the (units unknown) (unknown) (unknown) (no date) (unknown) (unknown) of retrolisthe sis of L1 on L2, L2 on L3, and L3 on L4. (units unknown) (unknown) (unknown) (no date) (unknown) (unknown) off longstandi ng. He is had intermittent paresthesias and has had chronic foot (units unknown) (unknown) (unknown) (no date) (unknown) (unknown) omeprazole 20 mg capsule,delayed 20 mg PO DAILY 06/14/22 06/14/22 (units unknown) (unknown) (unknown) (no date) (unknown) (unknown) omeprazole 20 mg capsule,delayed release(DR/EC) (units unknown) (unknown) (unknown) (no date) (unknown) (unknown) on a dexametha sone taper in his on day 3 or 4 and should be taking 3 tablets of (units unknown) (unknown) (unknown) (no date) (unknown) (unknown) or make any ma carlyle decisions while taking it. This medication will make you (units unknown) (unknown) (unknown) (no date) (unknown) (unknown) over the dorsu m of the foot. Patient states foot drop as worsened he is able to (units unknown) (unknown) (unknown) (no date) (unknown) (unknown) oxycodone 5 mg tablet 5 mg PO Q6H PRN pain #14 tabs 06/29/22 (units unknown) (unknown) (unknown) (no date) (unknown) (unknown) oxycodone 5 mg table t (units unknown) (unknown) (unknown) (no date) (unknown) (unknown) pregabalin 200 mg capsule 200 mg PO TID 06/14/22 06/14/22 (units unknown) (unknown) (unknown) (no date) (unknown) (unknown) pregabalin 200 mg capsule (units unknown) (unknown) (unknown) (no date) (unknown) (unknown) release (units unknown) (unknown) (unknown) (no date) (unknown) (unknown) right leg but not significantly worsened. He denies any saddle anesthesia, no (units unknown) (unknown) (unknown) (no date) (unknown) (unknown) several times. Discussed with patient he feels comfortable returning home he (units unknown) (unknown) (unknown) (no date) (unknown) (unknown) significant change. (units unknown) (unknown) (unknown) (no date) (unknown) (unknown) significant (units unknown) (unknown) (unknown) (no date) (unknown) (unknown) soft and regular. (u nits unknown) (unknown) (unknown) (no date) (unknown) (unknown) spin echo (units unknown) (unknown) (unknown) (no date) (unknown) (unknown) stenosis and m oderate chronic T12 compression fracture. My suspicion for active (units unknown) (unknown) (unknown) (no date) (unknown) (unknown) stenosis, and at (un its unknown) (unknown) (unknown) (no date) (unknown) (unknown) stenosis. (units unknown) (unknown) (unknown) (no date) (unknown) (unknown) stenosis.? No significant change. (units unknown) (unknown) (unknown) (no date) (unknown) (unknown) stenosis.? No (units unknown) (unknown) (unknown) (no date) (unknown) (unknown) swelling. Dana ent has normal range of motion. Patient's gait is normal. (units unknown) (unknown) (unknown) (no date) (unknown) (unknown) tabs (units unknown) (unknown) (unknown) (no date) (unknown) (unknown) takes Soma intermittently, oxycodone for pain control and Tylenol and has been (units unknown) (unknown) (unknown) (no date) (unknown) (unknown) team. (units unknown) (unknown) (unknown) (no date) (unknown) (unknown) the (units unknown) (unknown) (unknown) (no date) (unknown) (unknown) through the tank mbar spine.? In cases with scoliosis, additional coronal T2 fast (units unknown) (unknown) (unknown) (no date) (unknown) (unknown) towards his fo ot. He states normal movement, no incontinence or other changes (units unknown) (unknown) (unknown) (no date) (unknown) (unknown) tramadol 50 mg tablet 50 mg PO TID PRN pain #30 tabs 06/14/22 (units unknown) (unknown) (unknown) (no date) (unknown) (unknown) tramadol 50 mg table t (units unknown) (unknown) (unknown) (no date) (unknown) (unknown) with Dr. Facundo eduardo on 06/22 4 bilateral lumbosacral radiculopathy. Patient states (units unknown) (unknown) Result panel 39 (unknown) (no date) (unknown) (unknown) (no value) (units unknown) (unknown) (unknown) (no date) (unknown) (unknown) (Lidoderm) (units unknown) (unknown) (unknown) (no date) (unknown) (unknown) 03/09/22 (units unknown) (unknown) (unknown) (no date) (unknown) (unknown) 03:54 (units unknown) (unknown) (unknown) (no date) (unknown) (unknown) 06/04/22 (units unknown) (unknown) (unknown) (no date) (unknown) (unknown) 06/07/22 (units unknown) (unknown) (unknown) (no date) (unknown) (unknown) 06/22/22 (units unknown) (unknown) (unknown) (no date) (unknown) (unknown) 06/28/22 (units unknown) (unknown) (unknown) (no date) (unknown) (unknown) 06/29/22 (units unknown) (unknown) (unknown) (no date) (unknown) (unknown) 09/10/21 (units unknown) (unknown) (unknown) (no date) (unknown) (unknown) 1 patch topica l DAILY Qty: 30 0RF (units unknown) (unknown) (unknown) (no date) (unknown) (unknown) 1. No acute process. (units unknown) (unknown) (unknown) (no date) (unknown) (unknown) [address] (un its unknown) (unknown) (unknown) (no date) (unknown) (unknown) 1st thing this morning. (units unknown) (unknown) (unknown) (no date) (unknown) (unknown) 2. No interval change compared to MRI dated 06/07/2022. (units unknown) (unknown) (unknown) (no date) (unknown) (unknown) 2/4 and lower extremities. Dorsalis pedis and tibialis pulses are 2+ and lower (units unknown) (unknown) (unknown) (no date) (unknown) (unknown) 20 mg PO DAILY (unit s unknown) (unknown) (unknown) (no date) (unknown) (unknown) 200 mg PO TID (units unknown) (unknown) (unknown) (no date) (unknown) (unknown) 3. Multilevel degenerative disc and facet disease, as well as ligamentum flavum (units unknown) (unknown) (unknown) (no date) (unknown) (unknown) 4. Postsurgica l sequelae. (units unknown) (unknown) (unknown) (no date) (unknown) (unknown) 5 mg PO Q6H OR N (Reason: pain) Qty: 10 0RF (units unknown) (unknown) (unknown) (no date) (unknown) (unknown) 5 mg PO Q6H OR N (Reason: pain) Qty: 14 0RF (units unknown) (unknown) (unknown) (no date) (unknown) (unknown) 5. 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 Multilevel moderate foraminal stenosis as described above. (units unknown) (unknown) (unknown) (no date) (unknown) (unknown) 60 mg PO DAILY (unit s unknown) (unknown) (unknown) (no date) (unknown) (unknown) 7. Moderate ch ronic T12 compression fracture.? (units unknown) (unknown) (unknown) (no date) (unknown) (unknown) 750 mg PO Q8H PRN (Reason: muscle pain) Qty: 30 0RF (units unknown) (unknown) (unknown) (no date) (unknown) (unknown) 990 (units unknown) (unknown) (unknown) (no date) (unknown) (unknown) ? (units unknown) (unknown) (unknown) (no date) (unknown) (unknown) ?No significan t canal stenosis.? Moderate bilateral foraminal stenosis.? No (units unknown) (unknown) (unknown) (no date) (unknown) (unknown) ABDOMEN: Soft, nontender. Normoactive bowel sounds all 4 quadrants. No (units unknown) (unknown) (unknown) (no date) (unknown) (unknown) Accession Numb er: [id number] ?? (units unknown) (unknown) (unknown) (no date) (unknown) (unknown) Acct:[id number] (uni ts unknown) (unknown) (unknown) (no date) (unknown) (unknown) Activity Restrictions/Additiona l Instructions: (units unknown) (unknown) (unknown) (no date) (unknown) (unknown) Age/Sex: 47 / M (uni ts unknown) (unknown) (unknown) (no date) (unknown) (unknown) Alignment and Curvature:? 5 lumbar type vertebral bodies are present by plain (units unknown) (unknown) (unknown) (no date) (unknown) (unknown) Allergies (units unknown) (unknown) (unknown) (no date) (unknown) (unknown) Allergy/AdvRea c Type Severity Reaction Status Date / Time (units unknown) (unknown) (unknown) (no date) (unknown) (unknown) [place] [address] (units unknown) (unknown) (unknown) (no date) (unknown) (unknown) Approved by: Abilio Gross M.D. on 06/28/2022 at 19:30?? (units unknown) (unknown) (unknown) (no date) (unknown) (unknown) BACK: No cervi jesus, thoracic or lumbar vertebral point tenderness. Patient has (units unknown) (unknown) (unknown) (no date) (unknown) (unknown) Blood Pressure 131/8 9 (units unknown) (unknown) (unknown) (no date) (unknown) (unknown) Bone Marrow:? Marrow is of normal overall signal.? No acute vertebral body (units unknown) (unknown) (unknown) (no date) (unknown) (unknown) CARDIOVASCULAR : Regular rate and rhythm without murmurs, rubs or gallops. (units unknown) (unknown) (unknown) (no date) (unknown) (unknown) COMPARISON:? [facility], CR, XR LUMBAR SPINE 2-3V, 06/04/2022, 21:08.? (units unknown) (unknown) (unknown) (no date) (unknown) (unknown) Call,Emiliano (units unknown) (unknown) (unknown) (no date) (unknown) (unknown) Called [facility] several times to speak with patients neurosurgery team. Have (units unknown) (unknown) (unknown) (no date) (unknown) (unknown) Mosley for neur osurgery at [place]. Patient states he is had back pain on and (units unknown) (unknown) (unknown) (no date) (unknown) (unknown) Chief Complain t: Back Pain/Injury (units unknown) (unknown) (unknown) (no date) (unknown) (unknown) Clinical Impression: (units unknown) (unknown) (unknown) (no date) (unknown) (unknown) Close (units unknown) (unknown) (unknown) (no date) (unknown) (unknown) Consultation #1: (un its unknown) (unknown) (unknown) (no date) (unknown) (unknown) Consultations (units unknown) (unknown) (unknown) (no date) (unknown) (unknown) Continue your current medications. (units unknown) (unknown) (unknown) (no date) (unknown) (unknown) Course (units unknown) (unknown) (unknown) (no date) (unknown) (unknown) : 5 Acct:[id number] (units unknown) (unknown) (unknown) (no date) (unknown) (unknown) : 1975 (uni ts unknown) (unknown) (unknown) (no date) (unknown) (unknown) Date of Servic e: 06/28/22 (units unknown) (unknown) (unknown) (no date) (unknown) (unknown) Departure (units unknown) (unknown) (unknown) (no date) (unknown) (unknown) Nate Gross (units unknown) (unknown) (unknown) (no date) (unknown) (unknown) Dictated by: Abilio Gross M.D. on 06/28/2022 at 19:26 ? ? (units unknown) (unknown) (unknown) (no date) (unknown) (unknown) Discharge Plan (unit s unknown) (unknown) (unknown) (no date) (unknown) (unknown) Discontinued Medications (units unknown) (unknown) (unknown) (no date) (unknown) (unknown) Documented By: BS (u nits unknown) (unknown) (unknown) (no date) (unknown) (unknown) Documented By: [facility]NG ( units unknown) (unknown) (unknown) (no date) (unknown) (unknown) ER Physician: Dona River D.O. (units unknown) (unknown) (unknown) (no date) (unknown) (unknown) EXTREMITIES: N ormal range of motion, no clubbing or edema. Neurovascularly (units unknown) (unknown) (unknown) (no date) (unknown) (unknown) Emergency Report (un its unknown) (unknown) (unknown) (no date) (unknown) (unknown) Exam Narrative: (uni ts unknown) (unknown) (unknown) (no date) (unknown) (unknown) Exam (units unknown) (unknown) (unknown) (no date) (unknown) (unknown) FINDINGS:? (units unknown) (unknown) (unknown) (no date) (unknown) (unknown) Follow-up with your neurosurgery team, call first thing this morning. (units unknown) (unknown) (unknown) (no date) (unknown) (unknown) GENERAL: Alert and oriented x three, male in mild distress (units unknown) (unknown) (unknown) (no date) (unknown) (unknown) : No CVA tendernes s (units unknown) (unknown) (unknown) (no date) (unknown) (unknown) General (units unknown) (unknown) (unknown) (no date) (unknown) (unknown) HEENT: Head normocephalic, atraumatic, EOMI, pupils reactive, face symmetric, (units unknown) (unknown) (unknown) (no date) (unknown) (unknown) HPI - Back Pain/Inju ry (units unknown) (unknown) (unknown) (no date) (unknown) (unknown) HPI Narrative: (unit s unknown) (unknown) (unknown) (no date) (unknown) (unknown) History of Pre sent Illness (units unknown) (unknown) (unknown) (no date) (unknown) (unknown) Home Medications (un its unknown) (unknown) (unknown) (no date) (unknown) (unknown) [facility], , MR LUMBAR SPINE WO CON, 06/07/2022, 14:37. (units unknown) (unknown) (unknown) (no date) (unknown) (unknown) IMPRESSION:? (units unknown) (unknown) (unknown) (no date) (unknown) (unknown) INDICATIONS:? know lumbar disease, had injection 1 week ago, left leg numb (units unknown) (unknown) (unknown) (no date) (unknown) (unknown) Image quality: ? Degraded by metallic artifact. (units unknown) (unknown) (unknown) (no date) (unknown) (unknown) Imaging Data (units unknown) (unknown) (unknown) (no date) (unknown) (unknown) Initial Vital Signs (units unknown) (unknown) (unknown) (no date) (unknown) (unknown) Initial Vital Signs: (units unknown) (unknown) (unknown) (no date) (unknown) (unknown) [place] [address] (units unknown) (unknown) (unknown) (no date) (unknown) (unknown) [facility] (uni ts unknown) (unknown) (unknown) (no date) (unknown) (unknown) [place] (units unknown) (unknown) (unknown) (no date) (unknown) (unknown) Linda Cook (units unknown) (unknown) (unknown) (no date) (unknown) (unknown) L1-L2:? Mild d isc height loss and desiccation.? Mild facet and ligamentum flavum (units unknown) (unknown) (unknown) (no date) (unknown) (unknown) L2-L3:? Mild d isc height loss.? Moderate disc desiccation.? Mild diffuse disc (units unknown) (unknown) (unknown) (no date) (unknown) (unknown) L3-L4:? Manne[employer] ior fusion.? Interbody device.? Mild diffuse disc bulge.? Mild (units unknown) (unknown) (unknown) (no date) (unknown) (unknown) L4-L5:? [employer]nequin [employer] ior fusion.? Interbody device.? Mild bilateral facet hypertrophy.? (units unknown) (unknown) (unknown) (no date) (unknown) (unknown) L5-S1:? [employer]ne[employer] ior fusion.? Interbody device placement.? Mild bilateral facet (units unknown) (unknown) (unknown) (no date) (unknown) (unknown) LS Transforami nal Injection (Signed) (units unknown) (unknown) (unknown) (no date) (unknown) (unknown) Last Admin: 00:13 Dose: 2 tab (units unknown) (unknown) (unknown) (no date) (unknown) (unknown) Last Admin: 03:49 Dose: 2 tab (units unknown) (unknown) (unknown) (no date) (unknown) (unknown) Launch?Image (units unknown) (unknown) (unknown) (no date) (unknown) (unknown) Limitations: n o limitations (units unknown) (unknown) (unknown) (no date) (unknown) (unknown) Loc: ED (units unknown) (unknown) (unknown) (no date) (unknown) (unknown) Lumbar Spine M RI (Signed) (units unknown) (unknown) (unknown) (no date) (unknown) (unknown) Lumbar Spine X -Ray (Signed) (units unknown) (unknown) (unknown) (no date) (unknown) (unknown) Lumbar radiculopathy (units unknown) (unknown) (unknown) (no date) (unknown) (unknown) MDM - Back Pain/Inju ry (units unknown) (unknown) (unknown) (no date) (unknown) (unknown) MDM Narrative (units unknown) (unknown) (unknown) (no date) (unknown) (unknown) MR#: [id number] (uni ts unknown) (unknown) (unknown) (no date) (unknown) (unknown) MRI Lumbar: (units unknown) (unknown) (unknown) (no date) (unknown) (unknown) Magnetic Reson ance Report (units unknown) (unknown) (unknown) (no date) (unknown) (unknown) Medical Histor y (units unknown) (unknown) (unknown) (no date) (unknown) (unknown) Medical decisi on making narrative: (units unknown) (unknown) (unknown) (no date) (unknown) (unknown) Medication Instructions Recorded Confirmed (units unknown) (unknown) (unknown) (no date) (unknown) (unknown) Medication Instructions Recorded (units unknown) (unknown) (unknown) (no date) (unknown) (unknown) Mild bilateral foraminal stenosis.? No significant change. (units unknown) (unknown) (unknown) (no date) (unknown) (unknown) Mild facet and ligamentum flavum hypertrophy.? Severe canal stenosis.? Moderate (units unknown) (unknown) (unknown) (no date) (unknown) (unknown) Mild (units unknown) (unknown) (unknown) (no date) (unknown) (unknown) Miscellaneous, Doctor, MD [Primary Care Provider] (units unknown) (unknown) (unknown) (no date) (unknown) (unknown) Mode of arriva l: Ambulatory (units unknown) (unknown) (unknown) (no date) (unknown) (unknown) NECK: Supple, full range of motion (units unknown) (unknown) (unknown) (no date) (unknown) (unknown) NEUROLOGICAL: Cranial nerves II through XII grossly intact. Moving all (units unknown) (unknown) (unknown) (no date) (unknown) (unknown) Narrative (units unknown) (unknown) (unknown) (no date) (unknown) (unknown) New (units unknown) (unknown) (unknown) (no date) (unknown) (unknown) No Action (units unknown) (unknown) (unknown) (no date) (unknown) (unknown) Noncontrast sa gittal T1 spin echo and T2 fast echo, sagittal STIR, and T2 fast (units unknown) (unknown) (unknown) (no date) (unknown) (unknown) Ordered: (units unknown) (unknown) (unknown) (no date) (unknown) (unknown) Ordering Provi kael: [place] D.O. (units unknown) (unknown) (unknown) (no date) (unknown) (unknown) Orders (units unknown) (unknown) (unknown) (no date) (unknown) (unknown) Oxycodone/Acet aminophe n (Oxycodone/Acetaminoph en 5/325 Tablet) 2 tab PO NOW ONE (units unknown) (unknown) (unknown) (no date) (unknown) (unknown) Oxygen Deliver y Method Room Air 06/28/22 18:50 (units unknown) (unknown) (unknown) (no date) (unknown) (unknown) Oxygen Deliver y Method Room Air (units unknown) (unknown) (unknown) (no date) (unknown) (unknown) PROCEDURE:? MR LUMBAR SPINE WO CON (units unknown) (unknown) (unknown) (no date) (unknown) (unknown) Paraspinous So ft Tissues:? No paravertebral masses.? (units unknown) (unknown) (unknown) (no date) (unknown) (unknown) Patient Comments: (u nits unknown) (unknown) (unknown) (no date) (unknown) (unknown) Patient Dispos ition: Home (units unknown) (unknown) (unknown) (no date) (unknown) (unknown) Patient History (uni ts unknown) (unknown) (unknown) (no date) (unknown) (unknown) Patient: Kishor Carrasquillo MR#: [id number] (units unknown) (unknown) (unknown) (no date) (unknown) (unknown) Patient: Kishor Carrasquillo (units unknown) (unknown) (unknown) (no date) (unknown) (unknown) Quentin Arthur (units unknown) (unknown) (unknown) (no date) (unknown) (unknown) Please return for new or worsening weakness, numbness, loss of bowel or bladder (units unknown) (unknown) (unknown) (no date) (unknown) (unknown) Please take th e disc of images with you. (units unknown) (unknown) (unknown) (no date) (unknown) (unknown) Prescription f or additional pain medication was sent to [facility] in [place]. (units unknown) (unknown) (unknown) (no date) (unknown) (unknown) Prescriptions: (unit s unknown) (unknown) (unknown) (no date) (unknown) (unknown) Previous Rx's (units unknown) (unknown) (unknown) (no date) (unknown) (unknown) Procedure: MR lumbar spine wo con (units unknown) (unknown) (unknown) (no date) (unknown) (unknown) [facility] neuro[facility], for Dr. Mosley (units unknown) (unknown) (unknown) (no date) (unknown) (unknown) Pulse Oximetry 98 (u nits unknown) (unknown) (unknown) (no date) (unknown) (unknown) Pulse Oximetry 99 06/28/22 18:50 (units unknown) (unknown) (unknown) (no date) (unknown) (unknown) Pulse Rate 107 H 06/28/22 18:50 (units unknown) (unknown) (unknown) (no date) (unknown) (unknown) Pulse Rate 66 (units unknown) (unknown) (unknown) (no date) (unknown) (unknown) RESPIRATORY: B reath sounds equal bilaterally, no wheezes rales or rhonchi. (units unknown) (unknown) (unknown) (no date) (unknown) (unknown) ROS Unobtainab le: All systems reviewed + are unremarkable except as noted in HPI (units unknown) (unknown) (unknown) (no date) (unknown) (unknown) Radiologist's Impression: (units unknown) (unknown) (unknown) (no date) (unknown) (unknown) Rectal exam is deferred. Muscle strength is 5/5 in lower extremities, DTRs are (units unknown) (unknown) (unknown) (no date) (unknown) (unknown) Referrals: (units unknown) (unknown) (unknown) (no date) (unknown) (unknown) Related Data (units unknown) (unknown) (unknown) (no date) (unknown) (unknown) Respiratory Rate 16 (units unknown) (unknown) (unknown) (no date) (unknown) (unknown) Respiratory Ra te 18 06/28/22 18:50 (units unknown) (unknown) (unknown) (no date) (unknown) (unknown) Review of Systems (u nits unknown) (unknown) (unknown) (no date) (unknown) (unknown) Rx Instructions: (un its unknown) (unknown) (unknown) (no date) (unknown) (unknown) SKIN: Warm, dr amanda, no petechiae, no rashes or lesions. (units unknown) (unknown) (unknown) (no date) (unknown) (unknown) Signed By: (units unknown) (unknown) (unknown) (no date) (unknown) (unknown) Signed (units unknown) (unknown) (unknown) (no date) (unknown) (unknown) Smoking Status : Never smoker (units unknown) (unknown) (unknown) (no date) (unknown) (unknown) Social History (units unknown) (unknown) (unknown) (no date) (unknown) (unknown) Source: patient (uni ts unknown) (unknown) (unknown) (no date) (unknown) (unknown) Spinal Cord:? Conus medullaris terminates at the mid L1 level.? Visualized cord (units unknown) (unknown) (unknown) (no date) (unknown) (unknown) Stand Alone Fo lorraine: Patient Portal/API (units unknown) (unknown) (unknown) (no date) (unknown) (unknown) Stated Complai nt: Back pain causing issues with L leg/foot, numbness (units unknown) (unknown) (unknown) (no date) (unknown) (unknown) Stop: 06/29/22 00:01 (units unknown) (unknown) (unknown) (no date) (unknown) (unknown) Stop: 06/29/22 03:45 (units unknown) (unknown) (unknown) (no date) (unknown) (unknown) Substance Use Type: does not use (units unknown) (unknown) (unknown) (no date) (unknown) (unknown) T11-T12 where there is mild cord flattening. (units unknown) (unknown) (unknown) (no date) (unknown) (unknown) T11-T12:? Mild retropulsion at the superior T12 level.? Moderate disc height (units unknown) (unknown) (unknown) (no date) (unknown) (unknown) T12-L1:? Mild disc height loss and desiccation.? No significant canal nor (units unknown) (unknown) (unknown) (no date) (unknown) (unknown) T12. (units unknown) (unknown) (unknown) (no date) (unknown) (unknown) TAKE ONE CAPSU LE BY MOUTH THREE TIMES DAILY (units unknown) (unknown) (unknown) (no date) (unknown) (unknown) TECHNIQUE:? (units unknown) (unknown) (unknown) (no date) (unknown) (unknown) Temperature 97 .7 F 06/28/22 18:50 (units unknown) (unknown) (unknown) (no date) (unknown) (unknown) This is a 47 y ear old male with history of back surgery x 3 follows with (units unknown) (unknown) (unknown) (no date) (unknown) (unknown) This is a 47-y ear-old male with acute on chronic paresthesias and states he is (units unknown) (unknown) (unknown) (no date) (unknown) (unknown) This medicatio n can make you sleepy do not drive, perform hazardous activities (units unknown) (unknown) (unknown) (no date) (unknown) (unknown) Time Seen by Wesley gann: 06/28/22 18:55 (units unknown) (unknown) (unknown) (no date) (unknown) (unknown) Vital Signs - 8 hr ( units unknown) (unknown) (unknown) (no date) (unknown) (unknown) Vital Signs (units unknown) (unknown) (unknown) (no date) (unknown) (unknown) Vital signs: (units unknown) (unknown) (unknown) (no date) (unknown) (unknown) Aden,Jitendra (units unknown) (unknown) (unknown) (no date) (unknown) (unknown) alcohol intake frequency: 0-2 drinks per day (units unknown) (unknown) (unknown) (no date) (unknown) (unknown) ambulate and w alk normally. States he has some chronic paresthesias in his (units unknown) (unknown) (unknown) (no date) (unknown) (unknown) and below (units unknown) (unknown) (unknown) (no date) (unknown) (unknown) at L2-L3 where there is severe stenosis and T11-T12 with mild cord flattening (units unknown) (unknown) (unknown) (no date) (unknown) (unknown) at that time t juan antonio had nerve had significant increased pain and since then has (units unknown) (unknown) (unknown) (no date) (unknown) (unknown) been as helpfu l. He reached out his neurosurgeon they recommended he had MRI, (units unknown) (unknown) (unknown) (no date) (unknown) (unknown) below the knee down his foot but has normal movement, ambulation with no other (units unknown) (unknown) (unknown) (no date) (unknown) (unknown) bilateral (units unknown) (unknown) (unknown) (no date) (unknown) (unknown) bulge.? (units unknown) (unknown) (unknown) (no date) (unknown) (unknown) but no acute i nterval change from 06/07/2022 MRI. Patient does have ligamentum (units unknown) (unknown) (unknown) (no date) (unknown) (unknown) cauda equina c hanges and patient and I both feel he is appropriate for (units unknown) (unknown) (unknown) (no date) (unknown) (unknown) cauda equina i s much lower but patient does have significant change. He was in (units unknown) (unknown) (unknown) (no date) (unknown) (unknown) change. (units unknown) (unknown) (unknown) (no date) (unknown) (unknown) changes over t he back or other new or concerning changes. (units unknown) (unknown) (unknown) (no date) (unknown) (unknown) compression (units unknown) (unknown) (unknown) (no date) (unknown) (unknown) consistent wit h cauda equina. Which does show multilevel canal stenosis worst (units unknown) (unknown) (unknown) (no date) (unknown) (unknown) constipated pl ease take a stool softener once to twice daily until stools are (units unknown) (unknown) (unknown) (no date) (unknown) (unknown) contact with h is neurosurgeon earlier today reached out to his neurosurgery (units unknown) (unknown) (unknown) (no date) (unknown) (unknown) control, numbn ess in the groin area, fevers, warmth erythema or other skin (units unknown) (unknown) (unknown) (no date) (unknown) (unknown) demonstrates n ormal signal and size.? (units unknown) (unknown) (unknown) (no date) (unknown) (unknown) department. (units unknown) (unknown) (unknown) (no date) (unknown) (unknown) desiccation.? Mild diffuse disc bulge.? Moderate canal stenosis.? Mild cord (units unknown) (unknown) (unknown) (no date) (unknown) (unknown) dexamethasone today. He states he is had steroids in the past they have not (units unknown) (unknown) (unknown) (no date) (unknown) (unknown) diffuse disc bulge/osteophyte.? Mild canal stenosis.? Moderate bilateral (units unknown) (unknown) (unknown) (no date) (unknown) (unknown) discharge. He was given a disc of his images and he is going to call his team (units unknown) (unknown) (unknown) (no date) (unknown) (unknown) drop on his le ft leg foot for some time. Patient had an injection on his back (units unknown) (unknown) (unknown) (no date) (unknown) (unknown) duloxetine 60 mg capsule,delayed 60 mg PO DAILY 06/14/22 06/14/22 (units unknown) (unknown) (unknown) (no date) (unknown) (unknown) duloxetine 60 mg capsule,delayed release(DR/EC) (units unknown) (unknown) (unknown) (no date) (unknown) (unknown) endplates of t he lumbar and lower thoracic spine.? Moderate chronic wedging of (units unknown) (unknown) (unknown) (no date) (unknown) (unknown) extremities (units unknown) (unknown) (unknown) (no date) (unknown) (unknown) extremities. S ensation is intact in the lower extremities, but decreased left (units unknown) (unknown) (unknown) (no date) (unknown) (unknown) facet hypertro phy.? Mild canal stenosis.? Moderate bilateral foraminal (units unknown) (unknown) (unknown) (no date) (unknown) (unknown) feels comforta ble returning home he does not. Patient has decreased sensation (units unknown) (unknown) (unknown) (no date) (unknown) (unknown) film.? 2 mm (units unknown) (unknown) (unknown) (no date) (unknown) (unknown) flattening.? (units unknown) (unknown) (unknown) (no date) (unknown) (unknown) flavum hypertr ophy and epidural lipomatosis. Multilevel moderate foraminal (units unknown) (unknown) (unknown) (no date) (unknown) (unknown) foraminal sten osis.? No significant change. (units unknown) (unknown) (unknown) (no date) (unknown) (unknown) foraminal (units unknown) (unknown) (unknown) (no date) (unknown) (unknown) fractures.? Po sterior fusion hardware at L3-S1.? Mild reactive signal throughout (units unknown) (unknown) (unknown) (no date) (unknown) (unknown) guarding or re bound, rigidity, no mass (units unknown) (unknown) (unknown) (no date) (unknown) (unknown) had increased numbness into his left leg below the knee more over the calf and (units unknown) (unknown) (unknown) (no date) (unknown) (unknown) he states it w as ordered as an outpatient but he presented to the ED. MRI was (units unknown) (unknown) (unknown) (no date) (unknown) (unknown) healed incisio ns which are clean dry and intact without any warmth, erythema or (units unknown) (unknown) (unknown) (no date) (unknown) (unknown) hypertrophy an d epidural lipomatosis. (units unknown) (unknown) (unknown) (no date) (unknown) (unknown) hypertrophy. (units unknown) (unknown) (unknown) (no date) (unknown) (unknown) hypertrophy.? Mild canal stenosis.? Mild bilateral foraminal stenosis.? No (units unknown) (unknown) (unknown) (no date) (unknown) (unknown) in comparison to right. (units unknown) (unknown) (unknown) (no date) (unknown) (unknown) intact (units unknown) (unknown) (unknown) (no date) (unknown) (unknown) leave on most painful area for up to 12 hrs (units unknown) (unknown) (unknown) (no date) (unknown) (unknown) lidocaine 5 % topical patch 1 patch topical DAILY #30 ea 06/14/22 (units unknown) (unknown) (unknown) (no date) (unknown) (unknown) lidocaine [Lid oderm] 5 % adhesive patch,medicated (units unknown) (unknown) (unknown) (no date) (unknown) (unknown) loss and (units unknown) (unknown) (unknown) (no date) (unknown) (unknown) loss of bowel or bladder control. No weakness he has been able to ambulate. He (units unknown) (unknown) (unknown) (no date) (unknown) (unknown) may be performed.? ( units unknown) (unknown) (unknown) (no date) (unknown) (unknown) methocarbamol 750 mg tablet 750 mg PO Q8H PRN muscle pain #30 06/07/22 (units unknown) (unknown) (unknown) (no date) (unknown) (unknown) methocarbamol 750 mg tablet (units unknown) (unknown) (unknown) (no date) (unknown) (unknown) milk Allergy M ild Verified 06/23/22 22:24 (units unknown) (unknown) (unknown) (no date) (unknown) (unknown) moist mucous membran es (units unknown) (unknown) (unknown) (no date) (unknown) (unknown) not heard back . Images were pushed several times. Discussed with patient he (units unknown) (unknown) (unknown) (no date) (unknown) (unknown) noticed signif icant change or increase of numbness below the left calf down (units unknown) (unknown) (unknown) (no date) (unknown) (unknown) obtained. Dana ent did have a dose of his typical pain medication here in the (units unknown) (unknown) (unknown) (no date) (unknown) (unknown) of retrolisthe sis of L1 on L2, L2 on L3, and L3 on L4. (units unknown) (unknown) (unknown) (no date) (unknown) (unknown) [facility]. He is had intermittent paresthesias and has had chronic foot (units unknown) (unknown) (unknown) (no date) (unknown) (unknown) omeprazole 20 mg capsule,delayed 20 mg PO DAILY 06/14/22 06/14/22 (units unknown) (unknown) (unknown) (no date) (unknown) (unknown) omeprazole 20 mg capsule,delayed release(DR/EC) (units unknown) (unknown) (unknown) (no date) (unknown) (unknown) on a dexametha sone taper in his on day 3 or 4 and should be taking 3 tablets of (units unknown) (unknown) (unknown) (no date) (unknown) (unknown) or make any ma carlyle decisions while taking it. This medication will make you (units unknown) (unknown) (unknown) (no date) (unknown) (unknown) over the dorsu m of the foot. Patient states foot drop as worsened he is able to (units unknown) (unknown) (unknown) (no date) (unknown) (unknown) oxycodone 5 mg tablet 5 mg PO Q6H PRN pain #10 tabs 06/29/22 (units unknown) (unknown) (unknown) (no date) (unknown) (unknown) oxycodone 5 mg tablet 5 mg PO Q6H PRN pain #14 tabs 06/29/22 (units unknown) (unknown) (unknown) (no date) (unknown) (unknown) oxycodone 5 mg table t (units unknown) (unknown) (unknown) (no date) (unknown) (unknown) pregabalin 200 mg capsule 200 mg PO TID 06/14/22 06/14/22 (units unknown) (unknown) (unknown) (no date) (unknown) (unknown) pregabalin 200 mg capsule (units unknown) (unknown) (unknown) (no date) (unknown) (unknown) release (units unknown) (unknown) (unknown) (no date) (unknown) (unknown) right leg but not significantly worsened. He denies any saddle anesthesia, no (units unknown) (unknown) (unknown) (no date) (unknown) (unknown) significant change. (units unknown) (unknown) (unknown) (no date) (unknown) (unknown) significant (units unknown) (unknown) (unknown) (no date) (unknown) (unknown) soft and regular. (u nits unknown) (unknown) (unknown) (no date) (unknown) (unknown) spin echo (units unknown) (unknown) (unknown) (no date) (unknown) (unknown) stenosis and m oderate chronic T12 compression fracture. My suspicion for active (units unknown) (unknown) (unknown) (no date) (unknown) (unknown) stenosis, and at (un its unknown) (unknown) (unknown) (no date) (unknown) (unknown) stenosis. (units unknown) (unknown) (unknown) (no date) (unknown) (unknown) stenosis.? No significant change. (units unknown) (unknown) (unknown) (no date) (unknown) (unknown) stenosis.? No (units unknown) (unknown) (unknown) (no date) (unknown) (unknown) swelling. Dana ent has normal range of motion. Patient's gait is normal. (units unknown) (unknown) (unknown) (no date) (unknown) (unknown) tabs (units unknown) (unknown) (unknown) (no date) (unknown) (unknown) takes Soma intermittently, oxycodone for pain control and Tylenol and has been (units unknown) (unknown) (unknown) (no date) (unknown) (unknown) team. (units unknown) (unknown) (unknown) (no date) (unknown) (unknown) the (units unknown) (unknown) (unknown) (no date) (unknown) (unknown) through the tank mbar spine.? In cases with scoliosis, additional coronal T2 fast (units unknown) (unknown) (unknown) (no date) (unknown) (unknown) towards his fo ot. He states normal movement, no incontinence or other changes (units unknown) (unknown) (unknown) (no date) (unknown) (unknown) tramadol 50 mg tablet 50 mg PO TID PRN pain #30 tabs 06/14/22 (units unknown) (unknown) (unknown) (no date) (unknown) (unknown) tramadol 50 mg table t (units unknown) (unknown) (unknown) (no date) (unknown) (unknown) with Dr. Facundo eduardo on 06/22 4 bilateral lumbosacral radiculopathy. Patient states (units unknown) (unknown) Result panel 40 (unknown) (no date) (unknown) (unknown) (no value) (units unknown) (unknown) (unknown) (no date) (unknown) (unknown) (Lidoderm) (units unknown) (unknown) (unknown) (no date) (unknown) (unknown) 03/09/22 (units unknown) (unknown) (unknown) (no date) (unknown) (unknown) 03:54 (units unknown) (unknown) (unknown) (no date) (unknown) (unknown) 06/04/22 (units unknown) (unknown) (unknown) (no date) (unknown) (unknown) 06/07/22 (units unknown) (unknown) (unknown) (no date) (unknown) (unknown) 06/22/22 (units unknown) (unknown) (unknown) (no date) (unknown) (unknown) 06/28/22 (units unknown) (unknown) (unknown) (no date) (unknown) (unknown) 06/29/22 (units unknown) (unknown) (unknown) (no date) (unknown) (unknown) 09/10/21 (units unknown) (unknown) (unknown) (no date) (unknown) (unknown) 1 patch topica l DAILY Qty: 30 0RF (units unknown) (unknown) (unknown) (no date) (unknown) (unknown) 1. No acute process. (units unknown) (unknown) (unknown) (no date) (unknown) (unknown) [address] (un its unknown) (unknown) (unknown) (no date) (unknown) (unknown) 1st thing this morning. (units unknown) (unknown) (unknown) (no date) (unknown) (unknown) 2. No interval change compared to MRI dated 06/07/2022. (units unknown) (unknown) (unknown) (no date) (unknown) (unknown) 2/4 and lower extremities. Dorsalis pedis and tibialis pulses are 2+ and lower (units unknown) (unknown) (unknown) (no date) (unknown) (unknown) 20 mg PO DAILY (unit s unknown) (unknown) (unknown) (no date) (unknown) (unknown) 200 mg PO TID (units unknown) (unknown) (unknown) (no date) (unknown) (unknown) 3. Multilevel degenerative disc and facet disease, as well as ligamentum flavum (units unknown) (unknown) (unknown) (no date) (unknown) (unknown) 4. Postsurgica l sequelae. (units unknown) (unknown) (unknown) (no date) (unknown) (unknown) 5 mg PO Q6H OR N (Reason: pain) Qty: 10 0RF (units unknown) (unknown) (unknown) (no date) (unknown) (unknown) 5 mg PO Q6H OR N (Reason: pain) Qty: 14 0RF (units unknown) (unknown) (unknown) (no date) (unknown) (unknown) 5. 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 Multilevel moderate foraminal stenosis as described above. (units unknown) (unknown) (unknown) (no date) (unknown) (unknown) 60 mg PO DAILY (unit s unknown) (unknown) (unknown) (no date) (unknown) (unknown) 7. Moderate ch ronic T12 compression fracture.? (units unknown) (unknown) (unknown) (no date) (unknown) (unknown) 750 mg PO Q8H PRN (Reason: muscle pain) Qty: 30 0RF (units unknown) (unknown) (unknown) (no date) (unknown) (unknown) 990 (units unknown) (unknown) (unknown) (no date) (unknown) (unknown) ? (units unknown) (unknown) (unknown) (no date) (unknown) (unknown) ?No significan t canal stenosis.? Moderate bilateral foraminal stenosis.? No (units unknown) (unknown) (unknown) (no date) (unknown) (unknown) ABDOMEN: Soft, nontender. Normoactive bowel sounds all 4 quadrants. No (units unknown) (unknown) (unknown) (no date) (unknown) (unknown) Accession Numb er: [id number] ?? (units unknown) (unknown) (unknown) (no date) (unknown) (unknown) Acct:[id number] (uni ts unknown) (unknown) (unknown) (no date) (unknown) (unknown) Activity Restrictions/Additiona l Instructions: (units unknown) (unknown) (unknown) (no date) (unknown) (unknown) Age/Sex: 47 / M (uni ts unknown) (unknown) (unknown) (no date) (unknown) (unknown) Alignment and Curvature:? 5 lumbar type vertebral bodies are present by plain (units unknown) (unknown) (unknown) (no date) (unknown) (unknown) Allergies (units unknown) (unknown) (unknown) (no date) (unknown) (unknown) Allergy/AdvRea c Type Severity Reaction Status Date / Time (units unknown) (unknown) (unknown) (no date) (unknown) (unknown) PANFILO [place] [id number] (units unknown) (unknown) (unknown) (no date) (unknown) (unknown) Approved by: Abilio Gross M.D. on 06/28/2022 at 19:30?? (units unknown) (unknown) (unknown) (no date) (unknown) (unknown) BACK: No cervi jesus, thoracic or lumbar vertebral point tenderness. Patient has (units unknown) (unknown) (unknown) (no date) (unknown) (unknown) Blood Pressure 131/8 9 (units unknown) (unknown) (unknown) (no date) (unknown) (unknown) Bone Marrow:? Marrow is of normal overall signal.? No acute vertebral body (units unknown) (unknown) (unknown) (no date) (unknown) (unknown) CARDIOVASCULAR : Regular rate and rhythm without murmurs, rubs or gallops. (units unknown) (unknown) (unknown) (no date) (unknown) (unknown) COMPARISON:? [facility], CR, XR LUMBAR SPINE 2-3V, 06/04/2022, 21:08.? (units unknown) (unknown) (unknown) (no date) (unknown) (unknown) Call,Emiliano (units unknown) (unknown) (unknown) (no date) (unknown) (unknown) Called [facility] several times to speak with patients neurosurgery team. Have (units unknown) (unknown) (unknown) (no date) (unknown) (unknown) [facility] for neur osurgery at [place]. Patient states he is had back pain on and (units unknown) (unknown) (unknown) (no date) (unknown) (unknown) Chief Complain t: Back Pain/Injury (units unknown) (unknown) (unknown) (no date) (unknown) (unknown) Clinical Impression: (units unknown) (unknown) (unknown) (no date) (unknown) (unknown) Close (units unknown) (unknown) (unknown) (no date) (unknown) (unknown) Consultation #1: (un its unknown) (unknown) (unknown) (no date) (unknown) (unknown) Consultations (units unknown) (unknown) (unknown) (no date) (unknown) (unknown) Continue your current medications. (units unknown) (unknown) (unknown) (no date) (unknown) (unknown) Course (units unknown) (unknown) (unknown) (no date) (unknown) (unknown) : 5 Acct:[id number] (units unknown) (unknown) (unknown) (no date) (unknown) (unknown) : 1975 (uni ts unknown) (unknown) (unknown) (no date) (unknown) (unknown) Date of Servic e: 06/28/22 (units unknown) (unknown) (unknown) (no date) (unknown) (unknown) Departure (units unknown) (unknown) (unknown) (no date) (unknown) (unknown) Nate Gross (units unknown) (unknown) (unknown) (no date) (unknown) (unknown) Dictated by: Abilio Gross M.D. on 06/28/2022 at 19:26 ? ? (units unknown) (unknown) (unknown) (no date) (unknown) (unknown) Discharge Plan (unit s unknown) (unknown) (unknown) (no date) (unknown) (unknown) Discontinued Medications (units unknown) (unknown) (unknown) (no date) (unknown) (unknown) Documented By: BS (u nits unknown) (unknown) (unknown) (no date) (unknown) (unknown) Documented By: HNG ( units unknown) (unknown) (unknown) (no date) (unknown) (unknown) Dr. Tyler at [facility] called back for Dr. Magallon, he review patient's images, he is (units unknown) (unknown) (unknown) (no date) (unknown) (unknown) ER Physician: [place] D.O. (units unknown) (unknown) (unknown) (no date) (unknown) (unknown) EXTREMITIES: N ormal range of motion, no clubbing or edema. Neurovascularly (units unknown) (unknown) (unknown) (no date) (unknown) (unknown) Emergency Report (un its unknown) (unknown) (unknown) (no date) (unknown) (unknown) Exam Narrative: (uni ts unknown) (unknown) (unknown) (no date) (unknown) (unknown) Exam (units unknown) (unknown) (unknown) (no date) (unknown) (unknown) FINDINGS:? (units unknown) (unknown) (unknown) (no date) (unknown) (unknown) Follow-up with your neurosurgery team, call first thing this morning. (units unknown) (unknown) (unknown) (no date) (unknown) (unknown) GENERAL: Alert and oriented x three, male in mild distress (units unknown) (unknown) (unknown) (no date) (unknown) (unknown) : No CVA tendernes s (units unknown) (unknown) (unknown) (no date) (unknown) (unknown) General (units unknown) (unknown) (unknown) (no date) (unknown) (unknown) HEENT: Head normocephalic, atraumatic, EOMI, pupils reactive, face symmetric, (units unknown) (unknown) (unknown) (no date) (unknown) (unknown) HPI - Back Pain/Inju ry (units unknown) (unknown) (unknown) (no date) (unknown) (unknown) HPI Narrative: (unit s unknown) (unknown) (unknown) (no date) (unknown) (unknown) History of Pre sent Illness (units unknown) (unknown) (unknown) (no date) (unknown) (unknown) Home Medications (un its unknown) (unknown) (unknown) (no date) (unknown) (unknown) [facility], , MR LUMBAR SPINE WO CON, 06/07/2022, 14:37. (units unknown) (unknown) (unknown) (no date) (unknown) (unknown) IMPRESSION:? (units unknown) (unknown) (unknown) (no date) (unknown) (unknown) INDICATIONS:? know lumbar disease, had injection 1 week ago, left leg numb (units unknown) (unknown) (unknown) (no date) (unknown) (unknown) Image quality: ? Degraded by metallic artifact. (units unknown) (unknown) (unknown) (no date) (unknown) (unknown) Imaging Data (units unknown) (unknown) (unknown) (no date) (unknown) (unknown) Initial Vital Signs (units unknown) (unknown) (unknown) (no date) (unknown) (unknown) Initial Vital Signs: (units unknown) (unknown) (unknown) (no date) (unknown) (unknown) [address] [address] (units unknown) (unknown) (unknown) (no date) (unknown) (unknown) [facility] (uni ts unknown) (unknown) (unknown) (no date) (unknown) (unknown) [place] (units unknown) (unknown) (unknown) (no date) (unknown) (unknown) Linda Cook (units unknown) (unknown) (unknown) (no date) (unknown) (unknown) L1-L2:? Mild d isc height loss and desiccation.? Mild facet and ligamentum flavum (units unknown) (unknown) (unknown) (no date) (unknown) (unknown) L2-L3:? Mild d isc height loss.? Moderate disc desiccation.? Mild diffuse disc (units unknown) (unknown) (unknown) (no date) (unknown) (unknown) L3-L4:? Mannequin [employer] ior fusion.? Interbody device.? Mild diffuse disc bulge.? Mild (units unknown) (unknown) (unknown) (no date) (unknown) (unknown) L4-L5:? [employer]nequin [employer] ior fusion.? Interbody device.? Mild bilateral facet hypertrophy.? (units unknown) (unknown) (unknown) (no date) (unknown) (unknown) L5-S1:? Mannequin [employer] ior fusion.? Interbody device placement.? Mild bilateral facet (units unknown) (unknown) (unknown) (no date) (unknown) (unknown) LS Transforami nal Injection (Signed) (units unknown) (unknown) (unknown) (no date) (unknown) (unknown) Last Admin: 00:13 Dose: 2 tab (units unknown) (unknown) (unknown) (no date) (unknown) (unknown) Last Admin: 03:49 Dose: 2 tab (units unknown) (unknown) (unknown) (no date) (unknown) (unknown) Launch?Image (units unknown) (unknown) (unknown) (no date) (unknown) (unknown) Limitations: n o limitations (units unknown) (unknown) (unknown) (no date) (unknown) (unknown) Loc: ED (units unknown) (unknown) (unknown) (no date) (unknown) (unknown) Lumbar Spine M RI (Signed) (units unknown) (unknown) (unknown) (no date) (unknown) (unknown) Lumbar Spine X -Ray (Signed) (units unknown) (unknown) (unknown) (no date) (unknown) (unknown) Lumbar radiculopathy (units unknown) (unknown) (unknown) (no date) (unknown) (unknown) MDM - Back Pain/Inju ry (units unknown) (unknown) (unknown) (no date) (unknown) (unknown) MDM Narrative (units unknown) (unknown) (unknown) (no date) (unknown) (unknown) MR#: [id number] (uni ts unknown) (unknown) (unknown) (no date) (unknown) (unknown) MRI Lumbar: (units unknown) (unknown) (unknown) (no date) (unknown) (unknown) Magnetic Reson ance Report (units unknown) (unknown) (unknown) (no date) (unknown) (unknown) Medical Histor y (units unknown) (unknown) (unknown) (no date) (unknown) (unknown) Medical decisi on making narrative: (units unknown) (unknown) (unknown) (no date) (unknown) (unknown) Medication Instructions Recorded Confirmed (units unknown) (unknown) (unknown) (no date) (unknown) (unknown) Medication Instructions Recorded (units unknown) (unknown) (unknown) (no date) (unknown) (unknown) Mild bilateral foraminal stenosis.? No significant change. (units unknown) (unknown) (unknown) (no date) (unknown) (unknown) Mild facet and ligamentum flavum hypertrophy.? Severe canal stenosis.? Moderate (units unknown) (unknown) (unknown) (no date) (unknown) (unknown) Mild (units unknown) (unknown) (unknown) (no date) (unknown) (unknown) Miscellaneous, Doctor, MD [Primary Care Provider] (units unknown) (unknown) (unknown) (no date) (unknown) (unknown) Mode of arriva l: Ambulatory (units unknown) (unknown) (unknown) (no date) (unknown) (unknown) NECK: Supple, full range of motion (units unknown) (unknown) (unknown) (no date) (unknown) (unknown) NEUROLOGICAL: Cranial nerves II through XII grossly intact. Moving all (units unknown) (unknown) (unknown) (no date) (unknown) (unknown) Narrative (units unknown) (unknown) (unknown) (no date) (unknown) (unknown) New (units unknown) (unknown) (unknown) (no date) (unknown) (unknown) No Action (units unknown) (unknown) (unknown) (no date) (unknown) (unknown) Noncontrast sa gittal T1 spin echo and T2 fast echo, sagittal STIR, and T2 fast (units unknown) (unknown) (unknown) (no date) (unknown) (unknown) Ordered: (units unknown) (unknown) (unknown) (no date) (unknown) (unknown) Ordering Provi kael: [place] D.O. (units unknown) (unknown) (unknown) (no date) (unknown) (unknown) Orders (units unknown) (unknown) (unknown) (no date) (unknown) (unknown) Oxycodone/Acet aminophe n (Oxycodone/Acetaminoph en 5/325 Tablet) 2 tab PO NOW ONE (units unknown) (unknown) (unknown) (no date) (unknown) (unknown) Oxygen Deliver y Method Room Air 06/28/22 18:50 (units unknown) (unknown) (unknown) (no date) (unknown) (unknown) Oxygen Deliver y Method Room Air (units unknown) (unknown) (unknown) (no date) (unknown) (unknown) PROCEDURE:? MR LUMBAR SPINE WO CON (units unknown) (unknown) (unknown) (no date) (unknown) (unknown) Paraspinous So ft Tissues:? No paravertebral masses.? (units unknown) (unknown) (unknown) (no date) (unknown) (unknown) Patient Comments: (u nits unknown) (unknown) (unknown) (no date) (unknown) (unknown) Patient Dispos ition: Home (units unknown) (unknown) (unknown) (no date) (unknown) (unknown) Patient History (uni ts unknown) (unknown) (unknown) (no date) (unknown) (unknown) Patient: Kishor Carrasquillo MR#: [id number] (units unknown) (unknown) (unknown) (no date) (unknown) (unknown) Patient: Kishor Carrasquillo (units unknown) (unknown) (unknown) (no date) (unknown) (unknown) Quentin Arthur (units unknown) (unknown) (unknown) (no date) (unknown) (unknown) Please return for new or worsening weakness, numbness, loss of bowel or bladder (units unknown) (unknown) (unknown) (no date) (unknown) (unknown) Please take th e disc of images with you. (units unknown) (unknown) (unknown) (no date) (unknown) (unknown) Prescription f or additional pain medication was sent to [facility] in [place]. (units unknown) (unknown) (unknown) (no date) (unknown) (unknown) Prescriptions: (unit s unknown) (unknown) (unknown) (no date) (unknown) (unknown) Previous Rx's (units unknown) (unknown) (unknown) (no date) (unknown) (unknown) Procedure: MR lumbar spine wo con (units unknown) (unknown) (unknown) (no date) (unknown) (unknown) [place], for Dr. Mosley (units unknown) (unknown) (unknown) (no date) (unknown) (unknown) Pulse Oximetry 98 (u nits unknown) (unknown) (unknown) (no date) (unknown) (unknown) Pulse Oximetry 99 06/28/22 18:50 (units unknown) (unknown) (unknown) (no date) (unknown) (unknown) Pulse Rate 107 H 06/28/22 18:50 (units unknown) (unknown) (unknown) (no date) (unknown) (unknown) Pulse Rate 66 (units unknown) (unknown) (unknown) (no date) (unknown) (unknown) RESPIRATORY: B reath sounds equal bilaterally, no wheezes rales or rhonchi. (units unknown) (unknown) (unknown) (no date) (unknown) (unknown) ROS Unobtainab le: All systems reviewed + are unremarkable except as noted in HPI (units unknown) (unknown) (unknown) (no date) (unknown) (unknown) Radiologist's Impression: (units unknown) (unknown) (unknown) (no date) (unknown) (unknown) Rectal exam is deferred. Muscle strength is 5/5 in lower extremities, DTRs are (units unknown) (unknown) (unknown) (no date) (unknown) (unknown) Referrals: (units unknown) (unknown) (unknown) (no date) (unknown) (unknown) Related Data (units unknown) (unknown) (unknown) (no date) (unknown) (unknown) Respiratory Rate 16 (units unknown) (unknown) (unknown) (no date) (unknown) (unknown) Respiratory Ra te 18 06/28/22 18:50 (units unknown) (unknown) (unknown) (no date) (unknown) (unknown) Review of Systems (u nits unknown) (unknown) (unknown) (no date) (unknown) (unknown) Rx Instructions: (un its unknown) (unknown) (unknown) (no date) (unknown) (unknown) SKIN: Warm, dr y, no petechiae, no rashes or lesions. (units unknown) (unknown) (unknown) (no date) (unknown) (unknown) Signed By: (units unknown) (unknown) (unknown) (no date) (unknown) (unknown) Signed (units unknown) (unknown) (unknown) (no date) (unknown) (unknown) Smoking Status : Never smoker (units unknown) (unknown) (unknown) (no date) (unknown) (unknown) Social History (units unknown) (unknown) (unknown) (no date) (unknown) (unknown) Source: patient (uni ts unknown) (unknown) (unknown) (no date) (unknown) (unknown) Spinal Cord:? Conus medullaris terminates at the mid L1 level.? Visualized cord (units unknown) (unknown) (unknown) (no date) (unknown) (unknown) Stand Alone Fo lorraine: Patient Portal/API (units unknown) (unknown) (unknown) (no date) (unknown) (unknown) Stated Complai nt: Back pain causing issues with L leg/foot, numbness (units unknown) (unknown) (unknown) (no date) (unknown) (unknown) Stop: 06/29/22 00:01 (units unknown) (unknown) (unknown) (no date) (unknown) (unknown) Stop: 06/29/22 03:45 (units unknown) (unknown) (unknown) (no date) (unknown) (unknown) Substance Use Type: does not use (units unknown) (unknown) (unknown) (no date) (unknown) (unknown) T11-T12 where there is mild cord flattening. (units unknown) (unknown) (unknown) (no date) (unknown) (unknown) T11-T12:? Mild retropulsion at the superior T12 level.? Moderate disc height (units unknown) (unknown) (unknown) (no date) (unknown) (unknown) T12-L1:? Mild disc height loss and desiccation.? No significant canal nor (units unknown) (unknown) (unknown) (no date) (unknown) (unknown) T12. (units unknown) (unknown) (unknown) (no date) (unknown) (unknown) TAKE ONE CAPSU LE BY MOUTH THREE TIMES DAILY (units unknown) (unknown) (unknown) (no date) (unknown) (unknown) TECHNIQUE:? (units unknown) (unknown) (unknown) (no date) (unknown) (unknown) Temperature 97 .7 F 06/28/22 18:50 (units unknown) (unknown) (unknown) (no date) (unknown) (unknown) This is a 47 y ear old male with history of back surgery x 3 follows with (units unknown) (unknown) (unknown) (no date) (unknown) (unknown) This is a 47-y ear-old male with acute on chronic paresthesias and states he is (units unknown) (unknown) (unknown) (no date) (unknown) (unknown) This medicatio n can make you sleepy do not drive, perform hazardous activities (units unknown) (unknown) (unknown) (no date) (unknown) (unknown) Time Seen by Wesley gann: 06/28/22 18:55 (units unknown) (unknown) (unknown) (no date) (unknown) (unknown) Vital Signs - 8 hr ( units unknown) (unknown) (unknown) (no date) (unknown) (unknown) Vital Signs (units unknown) (unknown) (unknown) (no date) (unknown) (unknown) Vital signs: (units unknown) (unknown) (unknown) (no date) (unknown) (unknown) Aden,Jitendra (units unknown) (unknown) (unknown) (no date) (unknown) (unknown) alcohol intake frequency: 0-2 drinks per day (units unknown) (unknown) (unknown) (no date) (unknown) (unknown) ambulate and w alk normally. States he has some chronic paresthesias in his (units unknown) (unknown) (unknown) (no date) (unknown) (unknown) and below (units unknown) (unknown) (unknown) (no date) (unknown) (unknown) at L2-L3 where there is severe stenosis and T11-T12 with mild cord flattening (units unknown) (unknown) (unknown) (no date) (unknown) (unknown) at that time t ricy had nerve had significant increased pain and since then has (units unknown) (unknown) (unknown) (no date) (unknown) (unknown) been as helpfu l. He reached out his neurosurgeon they recommended he had MRI, (units unknown) (unknown) (unknown) (no date) (unknown) (unknown) below the knee down his foot but has normal movement, ambulation with no other (units unknown) (unknown) (unknown) (no date) (unknown) (unknown) bilateral (units unknown) (unknown) (unknown) (no date) (unknown) (unknown) bulge.? (units unknown) (unknown) (unknown) (no date) (unknown) (unknown) but no acute i nterval change from 06/07/2022 MRI. Patient does have ligamentum (units unknown) (unknown) (unknown) (no date) (unknown) (unknown) cauda equina c hanges and patient and I both feel he is appropriate for (units unknown) (unknown) (unknown) (no date) (unknown) (unknown) cauda equina i s much lower but patient does have significant change. He was in (units unknown) (unknown) (unknown) (no date) (unknown) (unknown) change. (units unknown) (unknown) (unknown) (no date) (unknown) (unknown) changes over t he back or other new or concerning changes. (units unknown) (unknown) (unknown) (no date) (unknown) (unknown) compression (units unknown) (unknown) (unknown) (no date) (unknown) (unknown) consistent wit h cauda equina. Which does show multilevel canal stenosis worst (units unknown) (unknown) (unknown) (no date) (unknown) (unknown) constipated pl ease take a stool softener once to twice daily until stools are (units unknown) (unknown) (unknown) (no date) (unknown) (unknown) contact with h is neurosurgeon earlier today reached out to his neurosurgery (units unknown) (unknown) (unknown) (no date) (unknown) (unknown) control, numbn ess in the groin area, fevers, warmth erythema or other skin (units unknown) (unknown) (unknown) (no date) (unknown) (unknown) demonstrates n ormal signal and size.? (units unknown) (unknown) (unknown) (no date) (unknown) (unknown) department. (units unknown) (unknown) (unknown) (no date) (unknown) (unknown) desiccation.? Mild diffuse disc bulge.? Moderate canal stenosis.? Mild cord (units unknown) (unknown) (unknown) (no date) (unknown) (unknown) dexamethasone today. He states he is had steroids in the past they have not (units unknown) (unknown) (unknown) (no date) (unknown) (unknown) diffuse disc bulge/osteophyte.? Mild canal stenosis.? Moderate bilateral (units unknown) (unknown) (unknown) (no date) (unknown) (unknown) discharge. He was given a disc of his images and he is going to call his team (units unknown) (unknown) (unknown) (no date) (unknown) (unknown) drop on his le ft leg foot for some time. Patient had an injection on his back (units unknown) (unknown) (unknown) (no date) (unknown) (unknown) duloxetine 60 mg capsule,delayed 60 mg PO DAILY 06/14/22 06/14/22 (units unknown) (unknown) (unknown) (no date) (unknown) (unknown) duloxetine 60 mg capsule,delayed release(DR/EC) (units unknown) (unknown) (unknown) (no date) (unknown) (unknown) endplates of t he lumbar and lower thoracic spine.? Moderate chronic wedging of (units unknown) (unknown) (unknown) (no date) (unknown) (unknown) extremities (units unknown) (unknown) (unknown) (no date) (unknown) (unknown) extremities. S ensation is intact in the lower extremities, but decreased left (units unknown) (unknown) (unknown) (no date) (unknown) (unknown) facet hypertro phy.? Mild canal stenosis.? Moderate bilateral foraminal (units unknown) (unknown) (unknown) (no date) (unknown) (unknown) familiar with the patient they had a recent visit in the last 1-2 days at their (units unknown) (unknown) (unknown) (no date) (unknown) (unknown) feels comforta ble returning home he does not. Patient has decreased sensation (units unknown) (unknown) (unknown) (no date) (unknown) (unknown) film.? 2 mm (units unknown) (unknown) (unknown) (no date) (unknown) (unknown) flattening.? (units unknown) (unknown) (unknown) (no date) (unknown) (unknown) flavum hypertr ophy and epidural lipomatosis. Multilevel moderate foraminal (units unknown) (unknown) (unknown) (no date) (unknown) (unknown) foraminal sten osis.? No significant change. (units unknown) (unknown) (unknown) (no date) (unknown) (unknown) foraminal (units unknown) (unknown) (unknown) (no date) (unknown) (unknown) fractures.? Po sterior fusion hardware at L3-S1.? Mild reactive signal throughout (units unknown) (unknown) (unknown) (no date) (unknown) (unknown) guarding or re bound, rigidity, no mass (units unknown) (unknown) (unknown) (no date) (unknown) (unknown) had increased numbness into his left leg below the knee more over the calf and (units unknown) (unknown) (unknown) (no date) (unknown) (unknown) he states it w as ordered as an outpatient but he presented to the ED. MRI was (units unknown) (unknown) (unknown) (no date) (unknown) (unknown) healed incisio ns which are clean dry and intact without any warmth, erythema or (units unknown) (unknown) (unknown) (no date) (unknown) (unknown) hypertrophy an d epidural lipomatosis. (units unknown) (unknown) (unknown) (no date) (unknown) (unknown) hypertrophy. (units unknown) (unknown) (unknown) (no date) (unknown) (unknown) hypertrophy.? Mild canal stenosis.? Mild bilateral foraminal stenosis.? No (units unknown) (unknown) (unknown) (no date) (unknown) (unknown) in comparison to right. (units unknown) (unknown) (unknown) (no date) (unknown) (unknown) intact (units unknown) (unknown) (unknown) (no date) (unknown) (unknown) interventions this evening. (units unknown) (unknown) (unknown) (no date) (unknown) (unknown) leave on most painful area for up to 12 hrs (units unknown) (unknown) (unknown) (no date) (unknown) (unknown) lidocaine 5 % topical patch 1 patch topical DAILY #30 ea 06/14/22 (units unknown) (unknown) (unknown) (no date) (unknown) (unknown) lidocaine [Lid oderm] 5 % adhesive patch,medicated (units unknown) (unknown) (unknown) (no date) (unknown) (unknown) local ER annmarie nt apparently has a appointment today at the office he recommends (units unknown) (unknown) (unknown) (no date) (unknown) (unknown) loss and (units unknown) (unknown) (unknown) (no date) (unknown) (unknown) loss of bowel or bladder control. No weakness he has been able to ambulate. He (units unknown) (unknown) (unknown) (no date) (unknown) (unknown) may be performed.? ( units unknown) (unknown) (unknown) (no date) (unknown) (unknown) methocarbamol 750 mg tablet 750 mg PO Q8H PRN muscle pain #30 06/07/22 (units unknown) (unknown) (unknown) (no date) (unknown) (unknown) methocarbamol 750 mg tablet (units unknown) (unknown) (unknown) (no date) (unknown) (unknown) milk Allergy M ild Verified 06/23/22 22:24 (units unknown) (unknown) (unknown) (no date) (unknown) (unknown) moist mucous membran es (units unknown) (unknown) (unknown) (no date) (unknown) (unknown) not heard back . Images were pushed several times. Discussed with patient he (units unknown) (unknown) (unknown) (no date) (unknown) (unknown) noticed signif icant change or increase of numbness below the left calf down (units unknown) (unknown) (unknown) (no date) (unknown) (unknown) obtained. Dana ent did have a dose of his typical pain medication here in the (units unknown) (unknown) (unknown) (no date) (unknown) (unknown) of retrolisthe sis of L1 on L2, L2 on L3, and L3 on L4. (units unknown) (unknown) (unknown) (no date) (unknown) (unknown) off longstandi ng. He is had intermittent paresthesias and has had chronic foot (units unknown) (unknown) (unknown) (no date) (unknown) (unknown) omeprazole 20 mg capsule,delayed 20 mg PO DAILY 06/14/22 06/14/22 (units unknown) (unknown) (unknown) (no date) (unknown) (unknown) omeprazole 20 mg capsule,delayed release(DR/EC) (units unknown) (unknown) (unknown) (no date) (unknown) (unknown) on a dexametha sone taper in his on day 3 or 4 and should be taking 3 tablets of (units unknown) (unknown) (unknown) (no date) (unknown) (unknown) or make any ma carlyle decisions while taking it. This medication will make you (units unknown) (unknown) (unknown) (no date) (unknown) (unknown) over the dorsu m of the foot. Patient states foot drop as worsened he is able to (units unknown) (unknown) (unknown) (no date) (unknown) (unknown) oxycodone 5 mg tablet 5 mg PO Q6H PRN pain #10 tabs 06/29/22 (units unknown) (unknown) (unknown) (no date) (unknown) (unknown) oxycodone 5 mg tablet 5 mg PO Q6H PRN pain #14 tabs 06/29/22 (units unknown) (unknown) (unknown) (no date) (unknown) (unknown) oxycodone 5 mg table t (units unknown) (unknown) (unknown) (no date) (unknown) (unknown) pregabalin 200 mg capsule 200 mg PO TID 06/14/22 06/14/22 (units unknown) (unknown) (unknown) (no date) (unknown) (unknown) pregabalin 200 mg capsule (units unknown) (unknown) (unknown) (no date) (unknown) (unknown) release (units unknown) (unknown) (unknown) (no date) (unknown) (unknown) right leg but not significantly worsened. He denies any saddle anesthesia, no (units unknown) (unknown) (unknown) (no date) (unknown) (unknown) shortly. He do es not recommend emergent surgery tonight or any other emergent (units unknown) (unknown) (unknown) (no date) (unknown) (unknown) significant change. (units unknown) (unknown) (unknown) (no date) (unknown) (unknown) significant (units unknown) (unknown) (unknown) (no date) (unknown) (unknown) soft and regular. (u nits unknown) (unknown) (unknown) (no date) (unknown) (unknown) spin echo (units unknown) (unknown) (unknown) (no date) (unknown) (unknown) stenosis and m oderate chronic T12 compression fracture. My suspicion for active (units unknown) (unknown) (unknown) (no date) (unknown) (unknown) stenosis, and at (un its unknown) (unknown) (unknown) (no date) (unknown) (unknown) stenosis. (units unknown) (unknown) (unknown) (no date) (unknown) (unknown) stenosis.? No significant change. (units unknown) (unknown) (unknown) (no date) (unknown) (unknown) stenosis.? No (units unknown) (unknown) (unknown) (no date) (unknown) (unknown) swelling. Dana ent has normal range of motion. Patient's gait is normal. (units unknown) (unknown) (unknown) (no date) (unknown) (unknown) tabs (units unknown) (unknown) (unknown) (no date) (unknown) (unknown) takes Soma intermittently, oxycodone for pain control and Tylenol and has been (units unknown) (unknown) (unknown) (no date) (unknown) (unknown) team. (units unknown) (unknown) (unknown) (no date) (unknown) (unknown) that he be see n or call if he can not make his appointment today to be seen (units unknown) (unknown) (unknown) (no date) (unknown) (unknown) the (units unknown) (unknown) (unknown) (no date) (unknown) (unknown) through the [facility] spine.? In cases with scoliosis, additional coronal T2 fast (units unknown) (unknown) (unknown) (no date) (unknown) (unknown) towards his fo ot. He states normal movement, no incontinence or other changes (units unknown) (unknown) (unknown) (no date) (unknown) (unknown) tramadol 50 mg tablet 50 mg PO TID PRN pain #30 tabs 06/14/22 (units unknown) (unknown) (unknown) (no date) (unknown) (unknown) tramadol 50 mg table t (units unknown) (unknown) (unknown) (no date) (unknown) (unknown) with Dr. Facundo eduardo on 06/22 4 bilateral lumbosacral radiculopathy. Patient states (units unknown) (unknown) Result panel 41 (unknown) (no date) (unknown) (unknown) (no value) (units unknown) (unknown) (unknown) (no date) (unknown) (unknown) <Electronicall y signed by Dona River D.O.> (units unknown) (unknown) (unknown) (no date) (unknown) (unknown) (Lidoderm) (units unknown) (unknown) (unknown) (no date) (unknown) (unknown) 03/09/22 (units unknown) (unknown) (unknown) (no date) (unknown) (unknown) 03:54 (units unknown) (unknown) (unknown) (no date) (unknown) (unknown) 06/04/22 (units unknown) (unknown) (unknown) (no date) (unknown) (unknown) 06/07/22 (units unknown) (unknown) (unknown) (no date) (unknown) (unknown) 06/22/22 (units unknown) (unknown) (unknown) (no date) (unknown) (unknown) 06/28/22 (units unknown) (unknown) (unknown) (no date) (unknown) (unknown) 06/29/22 (units unknown) (unknown) (unknown) (no date) (unknown) (unknown) 06/30/22 0848 (units unknown) (unknown) (unknown) (no date) (unknown) (unknown) 09/10/21 (units unknown) (unknown) (unknown) (no date) (unknown) (unknown) 1 patch topica l DAILY Qty: 30 0RF (units unknown) (unknown) (unknown) (no date) (unknown) (unknown) 1. No acute process. (units unknown) (unknown) (unknown) (no date) (unknown) (unknown) [address] (un its unknown) (unknown) (unknown) (no date) (unknown) (unknown) 1st thing this morning. (units unknown) (unknown) (unknown) (no date) (unknown) (unknown) 2. No interval change compared to MRI dated 06/07/2022. (units unknown) (unknown) (unknown) (no date) (unknown) (unknown) 2/4 and lower extremities. Dorsalis pedis and tibialis pulses are 2+ and lower (units unknown) (unknown) (unknown) (no date) (unknown) (unknown) 20 mg PO DAILY (unit s unknown) (unknown) (unknown) (no date) (unknown) (unknown) 200 mg PO TID (units unknown) (unknown) (unknown) (no date) (unknown) (unknown) 3. Multilevel degenerative disc and facet disease, as well as ligamentum flavum (units unknown) (unknown) (unknown) (no date) (unknown) (unknown) 4. Postsurgica l sequelae. (units unknown) (unknown) (unknown) (no date) (unknown) (unknown) 5 mg PO Q6H OR N (Reason: pain) Qty: 10 0RF (units unknown) (unknown) (unknown) (no date) (unknown) (unknown) 5 mg PO Q6H OR N (Reason: pain) Qty: 14 0RF (units unknown) (unknown) (unknown) (no date) (unknown) (unknown) 5. 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 Multilevel moderate foraminal stenosis as described above. (units unknown) (unknown) (unknown) (no date) (unknown) (unknown) 60 mg PO DAILY (unit s unknown) (unknown) (unknown) (no date) (unknown) (unknown) 7. Moderate ch ronic T12 compression fracture.? (units unknown) (unknown) (unknown) (no date) (unknown) (unknown) 750 mg PO Q8H PRN (Reason: muscle pain) Qty: 30 0RF (units unknown) (unknown) (unknown) (no date) (unknown) (unknown) 990 (units unknown) (unknown) (unknown) (no date) (unknown) (unknown) ? (units unknown) (unknown) (unknown) (no date) (unknown) (unknown) ?No significan t canal stenosis.? Moderate bilateral foraminal stenosis.? No (units unknown) (unknown) (unknown) (no date) (unknown) (unknown) ABDOMEN: Soft, nontender. Normoactive bowel sounds all 4 quadrants. No (units unknown) (unknown) (unknown) (no date) (unknown) (unknown) Accession Numb er: [id number] ?? (units unknown) (unknown) (unknown) (no date) (unknown) (unknown) Acct:[id number] (uni ts unknown) (unknown) (unknown) (no date) (unknown) (unknown) Activity Restrictions/Additiona l Instructions: (units unknown) (unknown) (unknown) (no date) (unknown) (unknown) Age/Sex: 47 / M (uni ts unknown) (unknown) (unknown) (no date) (unknown) (unknown) Alignment and Curvature:? 5 lumbar type vertebral bodies are present by plain (units unknown) (unknown) (unknown) (no date) (unknown) (unknown) Allergies (units unknown) (unknown) (unknown) (no date) (unknown) (unknown) Allergy/AdvRea c Type Severity Reaction Status Date / Time (units unknown) (unknown) (unknown) (no date) (unknown) (unknown) [place] [address] (units unknown) (unknown) (unknown) (no date) (unknown) (unknown) Approved by: Abilio Gross M.D. on 06/28/2022 at 19:30?? (units unknown) (unknown) (unknown) (no date) (unknown) (unknown) BACK: No cervi jesus, thoracic or lumbar vertebral point tenderness. Patient has (units unknown) (unknown) (unknown) (no date) (unknown) (unknown) Blood Pressure 131/8 9 (units unknown) (unknown) (unknown) (no date) (unknown) (unknown) Bone Marrow:? Marrow is of normal overall signal.? No acute vertebral body (units unknown) (unknown) (unknown) (no date) (unknown) (unknown) CARDIOVASCULAR : Regular rate and rhythm without murmurs, rubs or gallops. (units unknown) (unknown) (unknown) (no date) (unknown) (unknown) COMPARISON:? I [facility], CR, XR LUMBAR SPINE 2-3V, 06/04/2022, 21:08.? (units unknown) (unknown) (unknown) (no date) (unknown) (unknown) Call,Emiliano (units unknown) (unknown) (unknown) (no date) (unknown) (unknown) Called [facility] several times to speak with patients neurosurgery team. Have (units unknown) (unknown) (unknown) (no date) (unknown) (unknown) [facility] for neur osurgery at [place]. Patient states he is had back pain on and (units unknown) (unknown) (unknown) (no date) (unknown) (unknown) Chief Complain t: Back Pain/Injury (units unknown) (unknown) (unknown) (no date) (unknown) (unknown) Clinical Impression: (units unknown) (unknown) (unknown) (no date) (unknown) (unknown) Close (units unknown) (unknown) (unknown) (no date) (unknown) (unknown) Consultation #1: (un its unknown) (unknown) (unknown) (no date) (unknown) (unknown) Consultations (units unknown) (unknown) (unknown) (no date) (unknown) (unknown) Continue your current medications. (units unknown) (unknown) (unknown) (no date) (unknown) (unknown) Course (units unknown) (unknown) (unknown) (no date) (unknown) (unknown) : 5 Acct:[id number] (units unknown) (unknown) (unknown) (no date) (unknown) (unknown) : 1975 (uni ts unknown) (unknown) (unknown) (no date) (unknown) (unknown) Date of Servic e: 06/28/22 (units unknown) (unknown) (unknown) (no date) (unknown) (unknown) Departure (units unknown) (unknown) (unknown) (no date) (unknown) (unknown) Nate Gross (units unknown) (unknown) (unknown) (no date) (unknown) (unknown) Dictated by: Abilio Gross M.D. on 06/28/2022 at 19:26 ? ? (units unknown) (unknown) (unknown) (no date) (unknown) (unknown) Discharge Plan (unit s unknown) (unknown) (unknown) (no date) (unknown) (unknown) Discontinued Medications (units unknown) (unknown) (unknown) (no date) (unknown) (unknown) Documented By: BS (u nits unknown) (unknown) (unknown) (no date) (unknown) (unknown) Documented By: HNG ( units unknown) (unknown) (unknown) (no date) (unknown) (unknown) Dr. Tyler at [facility] called back for Dr. Magallon, he review patient's images, he is (units unknown) (unknown) (unknown) (no date) (unknown) (unknown) ER Physician: Dona River D.O. (units unknown) (unknown) (unknown) (no date) (unknown) (unknown) EXTREMITIES: N ormal range of motion, no clubbing or edema. Neurovascularly (units unknown) (unknown) (unknown) (no date) (unknown) (unknown) Emergency Report (un its unknown) (unknown) (unknown) (no date) (unknown) (unknown) Exam Narrative: (uni ts unknown) (unknown) (unknown) (no date) (unknown) (unknown) Exam (units unknown) (unknown) (unknown) (no date) (unknown) (unknown) FINDINGS:? (units unknown) (unknown) (unknown) (no date) (unknown) (unknown) Follow-up with your neurosurgery team, call first thing this morning. (units unknown) (unknown) (unknown) (no date) (unknown) (unknown) GENERAL: Alert and oriented x three, male in mild distress (units unknown) (unknown) (unknown) (no date) (unknown) (unknown) : No CVA tendernes s (units unknown) (unknown) (unknown) (no date) (unknown) (unknown) General (units unknown) (unknown) (unknown) (no date) (unknown) (unknown) HEENT: Head normocephalic, atraumatic, EOMI, pupils reactive, face symmetric, (units unknown) (unknown) (unknown) (no date) (unknown) (unknown) HPI - Back Pain/Inju ry (units unknown) (unknown) (unknown) (no date) (unknown) (unknown) HPI Narrative: (unit s unknown) (unknown) (unknown) (no date) (unknown) (unknown) History of Pre sent Illness (units unknown) (unknown) (unknown) (no date) (unknown) (unknown) Home Medications (un its unknown) (unknown) (unknown) (no date) (unknown) (unknown) Hospital, MR, MR LUMBAR SPINE WO GEORGE, 06/07/2022, 14:37. (units unknown) (unknown) (unknown) (no date) (unknown) (unknown) IMPRESSION:? (units unknown) (unknown) (unknown) (no date) (unknown) (unknown) INDICATIONS:? know lumbar disease, had injection 1 week ago, left leg numb (units unknown) (unknown) (unknown) (no date) (unknown) (unknown) Image quality: ? Degraded by metallic artifact. (units unknown) (unknown) (unknown) (no date) (unknown) (unknown) Imaging Data (units unknown) (unknown) (unknown) (no date) (unknown) (unknown) Initial Vital Signs (units unknown) (unknown) (unknown) (no date) (unknown) (unknown) Initial Vital Signs: (units unknown) (unknown) (unknown) (no date) (unknown) (unknown) [place] [address] (units unknown) (unknown) (unknown) (no date) (unknown) (unknown) [facility] (uni ts unknown) (unknown) (unknown) (no date) (unknown) (unknown) [place] (units unknown) (unknown) (unknown) (no date) (unknown) (unknown) [facility] (units unknown) (unknown) (unknown) (no date) (unknown) (unknown) L1-L2:? Mild d isc height loss and desiccation.? Mild facet and ligamentum flavum (units unknown) (unknown) (unknown) (no date) (unknown) (unknown) L2-L3:? Mild d isc height loss.? Moderate disc desiccation.? Mild diffuse disc (units unknown) (unknown) (unknown) (no date) (unknown) (unknown) L3-L4:? [employer] ior fusion.? Interbody device.? Mild diffuse disc bulge.? Mild (units unknown) (unknown) (unknown) (no date) (unknown) (unknown) L4-L5:? [employer] ior fusion.? Interbody device.? Mild bilateral facet hypertrophy.? (units unknown) (unknown) (unknown) (no date) (unknown) (unknown) L5-S1:? [employer] ior fusion.? Interbody device placement.? Mild bilateral facet (units unknown) (unknown) (unknown) (no date) (unknown) (unknown) LS Transforami nal Injection (Signed) (units unknown) (unknown) (unknown) (no date) (unknown) (unknown) Last Admin: 00:13 Dose: 2 tab (units unknown) (unknown) (unknown) (no date) (unknown) (unknown) Last Admin: 03:49 Dose: 2 tab (units unknown) (unknown) (unknown) (no date) (unknown) (unknown) Launch?Image (units unknown) (unknown) (unknown) (no date) (unknown) (unknown) Limitations: n o limitations (units unknown) (unknown) (unknown) (no date) (unknown) (unknown) Loc: ED (units unknown) (unknown) (unknown) (no date) (unknown) (unknown) Lumbar Spine M RI (Signed) (units unknown) (unknown) (unknown) (no date) (unknown) (unknown) Lumbar Spine X -Ray (Signed) (units unknown) (unknown) (unknown) (no date) (unknown) (unknown) Lumbar radiculopathy (units unknown) (unknown) (unknown) (no date) (unknown) (unknown) MDM - Back Pain/Inju ry (units unknown) (unknown) (unknown) (no date) (unknown) (unknown) MDM Narrative (units unknown) (unknown) (unknown) (no date) (unknown) (unknown) MR#: [id number] (uni ts unknown) (unknown) (unknown) (no date) (unknown) (unknown) MRI Lumbar: (units unknown) (unknown) (unknown) (no date) (unknown) (unknown) Magnetic Reson ance Report (units unknown) (unknown) (unknown) (no date) (unknown) (unknown) Medical Histor y (units unknown) (unknown) (unknown) (no date) (unknown) (unknown) Medical decisi on making narrative: (units unknown) (unknown) (unknown) (no date) (unknown) (unknown) Medication Instructions Recorded Confirmed (units unknown) (unknown) (unknown) (no date) (unknown) (unknown) Medication Instructions Recorded (units unknown) (unknown) (unknown) (no date) (unknown) (unknown) Mild bilateral foraminal stenosis.? No significant change. (units unknown) (unknown) (unknown) (no date) (unknown) (unknown) Mild facet and ligamentum flavum hypertrophy.? Severe canal stenosis.? Moderate (units unknown) (unknown) (unknown) (no date) (unknown) (unknown) Mild (units unknown) (unknown) (unknown) (no date) (unknown) (unknown) Miscellaneous, Doctor, [Primary Care Provider] (units unknown) (unknown) (unknown) (no date) (unknown) (unknown) Mode of arriva l: Ambulatory (units unknown) (unknown) (unknown) (no date) (unknown) (unknown) NECK: Supple, full range of motion (units unknown) (unknown) (unknown) (no date) (unknown) (unknown) NEUROLOGICAL: Cranial nerves II through XII grossly intact. Moving all (units unknown) (unknown) (unknown) (no date) (unknown) (unknown) Narrative (units unknown) (unknown) (unknown) (no date) (unknown) (unknown) New (units unknown) (unknown) (unknown) (no date) (unknown) (unknown) No Action (units unknown) (unknown) (unknown) (no date) (unknown) (unknown) Noncontrast sa gittal T1 spin echo and T2 fast echo, sagittal STIR, and T2 fast (units unknown) (unknown) (unknown) (no date) (unknown) (unknown) Ordered: (units unknown) (unknown) (unknown) (no date) (unknown) (unknown) Ordering Provsaúl kael: [place] D.O. (units unknown) (unknown) (unknown) (no date) (unknown) (unknown) Orders (units unknown) (unknown) (unknown) (no date) (unknown) (unknown) Oxycodone/Acet aminophe n (Oxycodone/Acetaminoph en 5/325 Tablet) 2 tab PO NOW ONE (units unknown) (unknown) (unknown) (no date) (unknown) (unknown) Oxygen Deliver y Method Room Air 06/28/22 18:50 (units unknown) (unknown) (unknown) (no date) (unknown) (unknown) Oxygen Deliver y Method Room Air (units unknown) (unknown) (unknown) (no date) (unknown) (unknown) PROCEDURE:? MR LUMBAR SPINE WO CON (units unknown) (unknown) (unknown) (no date) (unknown) (unknown) Paraspinous So ft Tissues:? No paravertebral masses.? (units unknown) (unknown) (unknown) (no date) (unknown) (unknown) Patient Comments: (u nits unknown) (unknown) (unknown) (no date) (unknown) (unknown) Patient Dispos ition: Home (units unknown) (unknown) (unknown) (no date) (unknown) (unknown) Patient History (uni ts unknown) (unknown) (unknown) (no date) (unknown) (unknown) Patient: Kishor Carrasquillo MR#: [id number] (units unknown) (unknown) (unknown) (no date) (unknown) (unknown) Patient: Kishor Carrasquillo (units unknown) (unknown) (unknown) (no date) (unknown) (unknown) Quentin Arthur (units unknown) (unknown) (unknown) (no date) (unknown) (unknown) Please return for new or worsening weakness, numbness, loss of bowel or bladder (units unknown) (unknown) (unknown) (no date) (unknown) (unknown) Please take th e disc of images with you. (units unknown) (unknown) (unknown) (no date) (unknown) (unknown) Prescription f or additional pain medication was sent to [facility] in [place]. (units unknown) (unknown) (unknown) (no date) (unknown) (unknown) Prescriptions: (unit s unknown) (unknown) (unknown) (no date) (unknown) (unknown) Previous Rx's (units unknown) (unknown) (unknown) (no date) (unknown) (unknown) Procedure: MR lumbar spine wo con (units unknown) (unknown) (unknown) (no date) (unknown) (unknown) [facility], for Dr. Mosley (units unknown) (unknown) (unknown) (no date) (unknown) (unknown) Pulse Oximetry 98 (u nits unknown) (unknown) (unknown) (no date) (unknown) (unknown) Pulse Oximetry 99 06/28/22 18:50 (units unknown) (unknown) (unknown) (no date) (unknown) (unknown) Pulse Rate 107 H 06/28/22 18:50 (units unknown) (unknown) (unknown) (no date) (unknown) (unknown) Pulse Rate 66 (units unknown) (unknown) (unknown) (no date) (unknown) (unknown) RESPIRATORY: B reath sounds equal bilaterally, no wheezes rales or rhonchi. (units unknown) (unknown) (unknown) (no date) (unknown) (unknown) ROS Unobtainab le: All systems reviewed + are unremarkable except as noted in HPI (units unknown) (unknown) (unknown) (no date) (unknown) (unknown) Radiologist's Impression: (units unknown) (unknown) (unknown) (no date) (unknown) (unknown) Rectal exam is deferred. Muscle strength is 5/5 in lower extremities, DTRs are (units unknown) (unknown) (unknown) (no date) (unknown) (unknown) Referrals: (units unknown) (unknown) (unknown) (no date) (unknown) (unknown) Related Data (units unknown) (unknown) (unknown) (no date) (unknown) (unknown) Respiratory Rate 16 (units unknown) (unknown) (unknown) (no date) (unknown) (unknown) Respiratory Ra te 18 06/28/22 18:50 (units unknown) (unknown) (unknown) (no date) (unknown) (unknown) Review of Systems (u nits unknown) (unknown) (unknown) (no date) (unknown) (unknown) Rx Instructions: (un its unknown) (unknown) (unknown) (no date) (unknown) (unknown) SKIN: Warm, dr y, no petechiae, no rashes or lesions. (units unknown) (unknown) (unknown) (no date) (unknown) (unknown) Signed By: (units unknown) (unknown) (unknown) (no date) (unknown) (unknown) Signed (units unknown) (unknown) (unknown) (no date) (unknown) (unknown) Smoking Status : Never smoker (units unknown) (unknown) (unknown) (no date) (unknown) (unknown) Social History (units unknown) (unknown) (unknown) (no date) (unknown) (unknown) Source: patient (uni ts unknown) (unknown) (unknown) (no date) (unknown) (unknown) Spinal Cord:? Conus medullaris terminates at the mid L1 level.? Visualized cord (units unknown) (unknown) (unknown) (no date) (unknown) (unknown) Stand Alone Fo lorraine: Patient Portal/API (units unknown) (unknown) (unknown) (no date) (unknown) (unknown) Stated Complai nt: Back pain causing issues with L leg/foot, numbness (units unknown) (unknown) (unknown) (no date) (unknown) (unknown) Stop: 06/29/22 00:01 (units unknown) (unknown) (unknown) (no date) (unknown) (unknown) Stop: 06/29/22 03:45 (units unknown) (unknown) (unknown) (no date) (unknown) (unknown) Substance Use Type: does not use (units unknown) (unknown) (unknown) (no date) (unknown) (unknown) T11-T12 where there is mild cord flattening. (units unknown) (unknown) (unknown) (no date) (unknown) (unknown) T11-T12:? Mild retropulsion at the superior T12 level.? Moderate disc height (units unknown) (unknown) (unknown) (no date) (unknown) (unknown) T12-L1:? Mild disc height loss and desiccation.? No significant canal nor (units unknown) (unknown) (unknown) (no date) (unknown) (unknown) T12. (units unknown) (unknown) (unknown) (no date) (unknown) (unknown) TAKE ONE CAPSU LE BY MOUTH THREE TIMES DAILY (units unknown) (unknown) (unknown) (no date) (unknown) (unknown) TECHNIQUE:? (units unknown) (unknown) (unknown) (no date) (unknown) (unknown) Temperature 97 .7 F 06/28/22 18:50 (units unknown) (unknown) (unknown) (no date) (unknown) (unknown) This is a 47 y ear old male with history of back surgery x 3 follows with (units unknown) (unknown) (unknown) (no date) (unknown) (unknown) This is a 47-y ear-old male with acute on chronic paresthesias and states he is (units unknown) (unknown) (unknown) (no date) (unknown) (unknown) This medicatio n can make you sleepy do not drive, perform hazardous activities (units unknown) (unknown) (unknown) (no date) (unknown) (unknown) Time Seen by Wesley gann: 06/28/22 18:55 (units unknown) (unknown) (unknown) (no date) (unknown) (unknown) Vital Signs - 8 hr ( units unknown) (unknown) (unknown) (no date) (unknown) (unknown) Vital Signs (units unknown) (unknown) (unknown) (no date) (unknown) (unknown) Vital signs: (units unknown) (unknown) (unknown) (no date) (unknown) (unknown) Aden,Jitendra (units unknown) (unknown) (unknown) (no date) (unknown) (unknown) alcohol intake frequency: 0-2 drinks per day (units unknown) (unknown) (unknown) (no date) (unknown) (unknown) ambulate and w alk normally. States he has some chronic paresthesias in his (units unknown) (unknown) (unknown) (no date) (unknown) (unknown) and below (units unknown) (unknown) (unknown) (no date) (unknown) (unknown) at L2-L3 where there is severe stenosis and T11-T12 with mild cord flattening (units unknown) (unknown) (unknown) (no date) (unknown) (unknown) at that time kat romano had nerve had significant increased pain and since then has (units unknown) (unknown) (unknown) (no date) (unknown) (unknown) been as helpfu l. He reached out his neurosurgeon they recommended he had MRI, (units unknown) (unknown) (unknown) (no date) (unknown) (unknown) below the knee down his foot but has normal movement, ambulation with no other (units unknown) (unknown) (unknown) (no date) (unknown) (unknown) bilateral (units unknown) (unknown) (unknown) (no date) (unknown) (unknown) bulge.? (units unknown) (unknown) (unknown) (no date) (unknown) (unknown) but no acute i nterval change from 06/07/2022 MRI. Patient does have ligamentum (units unknown) (unknown) (unknown) (no date) (unknown) (unknown) cauda equina c hanges and patient and I both feel he is appropriate for (units unknown) (unknown) (unknown) (no date) (unknown) (unknown) cauda equina i s much lower but patient does have significant change. He was in (units unknown) (unknown) (unknown) (no date) (unknown) (unknown) change. (units unknown) (unknown) (unknown) (no date) (unknown) (unknown) changes over t he back or other new or concerning changes. (units unknown) (unknown) (unknown) (no date) (unknown) (unknown) compression (units unknown) (unknown) (unknown) (no date) (unknown) (unknown) consistent wit h cauda equina. Which does show multilevel canal stenosis worst (units unknown) (unknown) (unknown) (no date) (unknown) (unknown) constipated pl ease take a stool softener once to twice daily until stools are (units unknown) (unknown) (unknown) (no date) (unknown) (unknown) contact with h is neurosurgeon earlier today reached out to his neurosurgery (units unknown) (unknown) (unknown) (no date) (unknown) (unknown) control, numbn ess in the groin area, fevers, warmth erythema or other skin (units unknown) (unknown) (unknown) (no date) (unknown) (unknown) demonstrates n ormal signal and size.? (units unknown) (unknown) (unknown) (no date) (unknown) (unknown) department. (units unknown) (unknown) (unknown) (no date) (unknown) (unknown) desiccation.? Mild diffuse disc bulge.? Moderate canal stenosis.? Mild cord (units unknown) (unknown) (unknown) (no date) (unknown) (unknown) dexamethasone today. He states he is had steroids in the past they have not (units unknown) (unknown) (unknown) (no date) (unknown) (unknown) diffuse disc bulge/osteophyte.? Mild canal stenosis.? Moderate bilateral (units unknown) (unknown) (unknown) (no date) (unknown) (unknown) discharge. He was given a disc of his images and he is going to call his team (units unknown) (unknown) (unknown) (no date) (unknown) (unknown) drop on his le ft leg foot for some time. Patient had an injection on his back (units unknown) (unknown) (unknown) (no date) (unknown) (unknown) duloxetine 60 mg capsule,delayed 60 mg PO DAILY 06/14/22 06/14/22 (units unknown) (unknown) (unknown) (no date) (unknown) (unknown) duloxetine 60 mg capsule,delayed release(DR/EC) (units unknown) (unknown) (unknown) (no date) (unknown) (unknown) endplates of t he lumbar and lower thoracic spine.? Moderate chronic wedging of (units unknown) (unknown) (unknown) (no date) (unknown) (unknown) extremities (units unknown) (unknown) (unknown) (no date) (unknown) (unknown) extremities. S ensation is intact in the lower extremities, but decreased left (units unknown) (unknown) (unknown) (no date) (unknown) (unknown) facet hypertro phy.? Mild canal stenosis.? Moderate bilateral foraminal (units unknown) (unknown) (unknown) (no date) (unknown) (unknown) familiar with the patient they had a recent visit in the last 1-2 days at their (units unknown) (unknown) (unknown) (no date) (unknown) (unknown) feels comforta ble returning home he does not. Patient has decreased sensation (units unknown) (unknown) (unknown) (no date) (unknown) (unknown) film.? 2 mm (units unknown) (unknown) (unknown) (no date) (unknown) (unknown) flattening.? (units unknown) (unknown) (unknown) (no date) (unknown) (unknown) flavum hypertr ophy and epidural lipomatosis. Multilevel moderate foraminal (units unknown) (unknown) (unknown) (no date) (unknown) (unknown) foraminal sten osis.? No significant change. (units unknown) (unknown) (unknown) (no date) (unknown) (unknown) foraminal (units unknown) (unknown) (unknown) (no date) (unknown) (unknown) fractures.? Po sterior fusion hardware at L3-S1.? Mild reactive signal throughout (units unknown) (unknown) (unknown) (no date) (unknown) (unknown) guarding or re bound, rigidity, no mass (units unknown) (unknown) (unknown) (no date) (unknown) (unknown) had increased numbness into his left leg below the knee more over the calf and (units unknown) (unknown) (unknown) (no date) (unknown) (unknown) he states it w as ordered as an outpatient but he presented to the ED. MRI was (units unknown) (unknown) (unknown) (no date) (unknown) (unknown) healed incisio ns which are clean dry and intact without any warmth, erythema or (units unknown) (unknown) (unknown) (no date) (unknown) (unknown) hypertrophy an d epidural lipomatosis. (units unknown) (unknown) (unknown) (no date) (unknown) (unknown) hypertrophy. (units unknown) (unknown) (unknown) (no date) (unknown) (unknown) hypertrophy.? Mild canal stenosis.? Mild bilateral foraminal stenosis.? No (units unknown) (unknown) (unknown) (no date) (unknown) (unknown) in comparison to right. (units unknown) (unknown) (unknown) (no date) (unknown) (unknown) intact (units unknown) (unknown) (unknown) (no date) (unknown) (unknown) interventions this evening. (units unknown) (unknown) (unknown) (no date) (unknown) (unknown) leave on most painful area for up to 12 hrs (units unknown) (unknown) (unknown) (no date) (unknown) (unknown) lidocaine 5 % topical patch 1 patch topical DAILY #30 ea 06/14/22 (units unknown) (unknown) (unknown) (no date) (unknown) (unknown) lidocaine [Lid oderm] 5 % adhesive patch,medicated (units unknown) (unknown) (unknown) (no date) (unknown) (unknown) [facility] apparently has a appointment today at the office he recommends (units unknown) (unknown) (unknown) (no date) (unknown) (unknown) loss and (units unknown) (unknown) (unknown) (no date) (unknown) (unknown) loss of bowel or bladder control. No weakness he has been able to ambulate. He (units unknown) (unknown) (unknown) (no date) (unknown) (unknown) may be performed.? ( units unknown) (unknown) (unknown) (no date) (unknown) (unknown) methocarbamol 750 mg tablet 750 mg PO Q8H PRN muscle pain #30 06/07/22 (units unknown) (unknown) (unknown) (no date) (unknown) (unknown) methocarbamol 750 mg tablet (units unknown) (unknown) (unknown) (no date) (unknown) (unknown) milk Allergy M ild Verified 06/23/22 22:24 (units unknown) (unknown) (unknown) (no date) (unknown) (unknown) moist mucous membran es (units unknown) (unknown) (unknown) (no date) (unknown) (unknown) not heard back . Images were pushed several times. Discussed with patient he (units unknown) (unknown) (unknown) (no date) (unknown) (unknown) noticed signif icant change or increase of numbness below the left calf down (units unknown) (unknown) (unknown) (no date) (unknown) (unknown) obtained. Dana ent did have a dose of his typical pain medication here in the (units unknown) (unknown) (unknown) (no date) (unknown) (unknown) of retrolisthe sis of L1 on L2, L2 on L3, and L3 on L4. (units unknown) (unknown) (unknown) (no date) (unknown) (unknown[facility]. He is had intermittent paresthesias and has had chronic foot (units unknown) (unknown) (unknown) (no date) (unknown) (unknown) omeprazole 20 mg capsule,delayed 20 mg PO DAILY 06/14/22 06/14/22 (units unknown) (unknown) (unknown) (no date) (unknown) (unknown) omeprazole 20 mg capsule,delayed release(DR/EC) (units unknown) (unknown) (unknown) (no date) (unknown) (unknown) on a dexametha sone taper in his on day 3 or 4 and should be taking 3 tablets of (units unknown) (unknown) (unknown) (no date) (unknown) (unknown) or make any ma carlyle decisions while taking it. This medication will make you (units unknown) (unknown) (unknown) (no date) (unknown) (unknown) over the dorsu m of the foot. Patient states foot drop as worsened he is able to (units unknown) (unknown) (unknown) (no date) (unknown) (unknown) oxycodone 5 mg tablet 5 mg PO Q6H PRN pain #10 tabs 06/29/22 (units unknown) (unknown) (unknown) (no date) (unknown) (unknown) oxycodone 5 mg tablet 5 mg PO Q6H PRN pain #14 tabs 06/29/22 (units unknown) (unknown) (unknown) (no date) (unknown) (unknown) oxycodone 5 mg table t (units unknown) (unknown) (unknown) (no date) (unknown) (unknown) pregabalin 200 mg capsule 200 mg PO TID 06/14/22 06/14/22 (units unknown) (unknown) (unknown) (no date) (unknown) (unknown) pregabalin 200 mg capsule (units unknown) (unknown) (unknown) (no date) (unknown) (unknown) release (units unknown) (unknown) (unknown) (no date) (unknown) (unknown) right leg but not significantly worsened. He denies any saddle anesthesia, no (units unknown) (unknown) (unknown) (no date) (unknown) (unknown) shortly. He do es not recommend emergent surgery tonight or any other emergent (units unknown) (unknown) (unknown) (no date) (unknown) (unknown) significant change. (units unknown) (unknown) (unknown) (no date) (unknown) (unknown) significant (units unknown) (unknown) (unknown) (no date) (unknown) (unknown) soft and regular. (u nits unknown) (unknown) (unknown) (no date) (unknown) (unknown) spin echo (units unknown) (unknown) (unknown) (no date) (unknown) (unknown) stenosis and m oderate chronic T12 compression fracture. My suspicion for active (units unknown) (unknown) (unknown) (no date) (unknown) (unknown) stenosis, and at (un its unknown) (unknown) (unknown) (no date) (unknown) (unknown) stenosis. (units unknown) (unknown) (unknown) (no date) (unknown) (unknown) stenosis.? No significant change. (units unknown) (unknown) (unknown) (no date) (unknown) (unknown) stenosis.? No (units unknown) (unknown) (unknown) (no date) (unknown) (unknown) swelling. Dana ent has normal range of motion. Patient's gait is normal. (units unknown) (unknown) (unknown) (no date) (unknown) (unknown) tabs (units unknown) (unknown) (unknown) (no date) (unknown) (unknown) takes Soma intermittently, oxycodone for pain control and Tylenol and has been (units unknown) (unknown) (unknown) (no date) (unknown) (unknown) team. (units unknown) (unknown) (unknown) (no date) (unknown) (unknown) that he be see n or call if he can not make his appointment today to be seen (units unknown) (unknown) (unknown) (no date) (unknown) (unknown) the (units unknown) (unknown) (unknown) (no date) (unknown) (unknown) through the [facility] spine.? In cases with scoliosis, additional coronal T2 fast (units unknown) (unknown) (unknown) (no date) (unknown) (unknown) towards his fo ot. He states normal movement, no incontinence or other changes (units unknown) (unknown) (unknown) (no date) (unknown) (unknown) tramadol 50 mg tablet 50 mg PO TID PRN pain #30 tabs 06/14/22 (units unknown) (unknown) (unknown) (no date) (unknown) (unknown) tramadol 50 mg table t (units unknown) (unknown) (unknown) (no date) (unknown) (unknown) with Dr. Facundo eduardo on 06/22 4 bilateral lumbosacral radiculopathy. Patient states (units unknown) (unknown) Result panel 42 (unknown) (no date) (unknown) (unknown) (no value) (units unknown) (unknown) (unknown) (no date) (unknown) (unknown) - Activity: Co ntinue activity as tolerated. [] (units unknown) (unknown) (unknown) (no date) (unknown) (unknown) - Chiropractor , acupuncture[] (units unknown) (unknown) (unknown) (no date) (unknown) (unknown) - Continues cl inician directed home exercise program including exercises learned (units unknown) (unknown) (unknown) (no date) (unknown) (unknown) - Education: C auda equina and associated symptoms, including motor weakness, (units unknown) (unknown) (unknown) (no date) (unknown) (unknown) - Follow-up: [] (uni ts unknown) (unknown) (unknown) (no date) (unknown) (unknown) - I discussed risks, benefits and side effects. Additionally, patient was (units unknown) (unknown) (unknown) (no date) (unknown) (unknown) - Imaging: No new imaging indicated at this time. [] (units unknown) (unknown) (unknown) (no date) (unknown) (unknown) - Interventional/Surgica l procedures: None indicated at this time. [] (units unknown) (unknown) (unknown) (no date) (unknown) (unknown) - Medications: No new prescription at this time. Patient will continue current (units unknown) (unknown) (unknown) (no date) (unknown) (unknown) - Medications: acetaminophen, NSAIDS, neuropathics, muscle relaxants [] (units unknown) (unknown) (unknown) (no date) (unknown) (unknown) - Physical The rapy: Completed 6 week course in the last 6 months OR Patient (units unknown) (unknown) (unknown) (no date) (unknown) (unknown) - Physical therapy/modalities/DME : Patient will likely benefit from physical (units unknown) (unknown) (unknown) (no date) (unknown) (unknown) - Prescription provided and uptitration instructions given if necessary. [] (units unknown) (unknown) (unknown) (no date) (unknown) (unknown) - Previous [] on [] provided []% relief of pain for the expected duration of the (units unknown) (unknown) (unknown) (no date) (unknown) (unknown) - Referrals: N one indicated at this time. [] (units unknown) (unknown) (unknown) (no date) (unknown) (unknown) -to-moderate b ilateral foraminal stenosis (units unknown) (unknown) (unknown) (no date) (unknown) (unknown) 06/29/22 (units unknown) (unknown) (unknown) (no date) (unknown) (unknown) 05/22/2021, 2:31.? (u nits unknown) (unknown) (unknown) (no date) (unknown) (unknown) 990 (units unknown) (unknown) (unknown) (no date) (unknown) (unknown) ? (units unknown) (unknown) (unknown) (no date) (unknown) (unknown) ? Acetaminophen (units unknown) (unknown) (unknown) (no date) (unknown) (unknown) ? Antidepressants (units unknown) (unknown) (unknown) (no date) (unknown) (unknown) ? Antiepileptics (units unknown) (unknown) (unknown) (no date) (unknown) (unknown) ? Mu scle Relaxants (units unknown) (unknown) (unknown) (no date) (unknown) (unknown) ? NSAIDs ( units unknown) (unknown) (unknown) (no date) (unknown) (unknown) ? Opioids (units unknown) (unknown) (unknown) (no date) (unknown) (unknown) ? Steroids (units unknown) (unknown) (unknown) (no date) (unknown) (unknown) ? Topicals (units unknown) (unknown) (unknown) (no date) (unknown) (unknown) Age/Sex: 47 / M Date of Service: (units unknown) (unknown) (unknown) (no date) (unknown) (unknown) Aggravating fa ctors include: multiple body positions (units unknown) (unknown) (unknown) (no date) (unknown) (unknown) Alignment and Curvature:? There is normal bony alignment.? (units unknown) (unknown) (unknown) (no date) (unknown) (unknown) All other syst ems reviewed and are unremarkable except as noted in HPI. (units unknown) (unknown) (unknown) (no date) (unknown) (unknown) Allergies (units unknown) (unknown) (unknown) (no date) (unknown) (unknown) [place] [id number] (units unknown) (unknown) (unknown) (no date) (unknown) (unknown) Approved by: Vale Aden M.D. on 06/07/2022 at 14:37? (units unknown) (unknown) (unknown) (no date) (unknown) (unknown) Approved by: Fercho Khan M.D. on 06/04/2022 at 21:57 ? (units unknown) (unknown) (unknown) (no date) (unknown) (unknown) Assessment + Plan (u nits unknown) (unknown) (unknown) (no date) (unknown) (unknown) Assessment: (units unknown) (unknown) (unknown) (no date) (unknown) (unknown) Attending Dr: Dhiraj Daigle MD (units unknown) (unknown) (unknown) (no date) (unknown) (unknown) B/L S1 TFESI ( Dr. Blair) 05/26/2021 ? Improved pain for 1 month (units unknown) (unknown) (unknown) (no date) (unknown) (unknown) Bone Marrow:? Wedge-shaped compression fracture T12 without marrow edema or (units unknown) (unknown) (unknown) (no date) (unknown) (unknown) Bones:? 5 lwy-iaf-elmivta vertebrae are present.? Pedicle screw fixation at L3 (units unknown) (unknown) (unknown) (no date) (unknown) (unknown) Bowel and blad kael: No loss of control (units unknown) (unknown) (unknown) (no date) (unknown) (unknown) COMPARISON:? [facility], MR, MR LUMBAR SPINE WO CON, 03/09/2022, 20:09. (units unknown) (unknown) (unknown) (no date) (unknown) (unknown) COMPARISON:? S Located within [facility], CR, XR LUMBAR SPINE 2 OR 3 VIEWS, (units unknown) (unknown) (unknown) (no date) (unknown) (unknown) Caudal ? No improvement (units unknown) (unknown) (unknown) (no date) (unknown) (unknown) Chart review: (units unknown) (unknown) (unknown) (no date) (unknown) (unknown) Chronic T12 compression fracture without retropulsed fracture fragment (units unknown) (unknown) (unknown) (no date) (unknown) (unknown) Conservative management includes: (units unknown) (unknown) (unknown) (no date) (unknown) (unknown) Continue [facility] physical therapy. [] (units unknown) (unknown) (unknown) (no date) (unknown) (unknown) Continue home exercise program. 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 (units unknown) (unknown) (unknown) (no date) (unknown) (unknown) Details: (units unknown) (unknown) (unknown) (no date) (unknown) (unknown) Dictated by: Fercho Khan M.D. on 06/04/2022 at 21:55 ? ? (units unknown) (unknown) (unknown) (no date) (unknown) (unknown) Documented By: Dhiraj Daigle MD 07/03/22 0803 (units unknown) (unknown) (unknown) (no date) (unknown) (unknown) Draft (units unknown) (unknown) (unknown) (no date) (unknown) (unknown) Duloxetine 60 mg (un its unknown) (unknown) (unknown) (no date) (unknown) (unknown) FINDINGS:? (units unknown) (unknown) (unknown) (no date) (unknown) (unknown) HPI (units unknown) (unknown) (unknown) (no date) (unknown) (unknown) He went to the ED at [facility] twice as well as an outside hospital twice. (units unknown) (unknown) (unknown) (no date) (unknown) (unknown) IMPRESSION:? (units unknown) (unknown) (unknown) (no date) (unknown) (unknown) INDICATIONS:? New lower extremity weakness, pain exacerbation after twist (units unknown) (unknown) (unknown) (no date) (unknown) (unknown) INDICATIONS:? hx of multiple back surgeries with pain after fall (units unknown) (unknown) (unknown) (no date) (unknown) (unknown) Image quality: ? Excellent.? (units unknown) (unknown) (unknown) (no date) (unknown) (unknown) Injections: (units unknown) (unknown) (unknown) (no date) (unknown) (unknown) Intake (units unknown) (unknown) (unknown) (no date) (unknown) (unknown) Interval History: (u nits unknown) (unknown) (unknown) (no date) (unknown) (unknown) Intervention:?Date:?Outcome:?? ? (units unknown) (unknown) (unknown) (no date) (unknown) (unknown) [facility], MR, MR LUMBAR SPINE WO CON, 03/09/2022, 20:09. (units unknown) (unknown) (unknown) (no date) (unknown) (unknown) JUSTIFICATION OF MEDICAL NECESSITY (units unknown) (unknown) (unknown) (no date) (unknown) (unknown) L-spine/T-spin e/C-spin e MRI ordered to better delineate the anatomy and help (units unknown) (unknown) (unknown) (no date) (unknown) (unknown) L1-L2:? Disc s pace is preserved.? No central or foraminal stenosis (units unknown) (unknown) (unknown) (no date) (unknown) (unknown) L2-L3:? Disc s pace narrowing and circumferential disc bulge results in moderate (units unknown) (unknown) (unknown) (no date) (unknown) (unknown) L3, L4 and L5 decompressive laminectomies with interbody fusion and posterior (units unknown) (unknown) (unknown) (no date) (unknown) (unknown) L3-L4:? Discec madonna and fusion with posterior decompression.? No central (units unknown) (unknown) (unknown) (no date) (unknown) (unknown) L4-L5:? Discec madonna and fusion with posterior decompression.? No central (units unknown) (unknown) (unknown) (no date) (unknown) (unknown) L5-S1:? Discec madonna and fusion with posterior decompression.? No central (units unknown) (unknown) (unknown) (no date) (unknown) (unknown) Lidoderm patch (unit s unknown) (unknown) (unknown) (no date) (unknown) (unknown) Loc: PAIN (units unknown) (unknown) (unknown) (no date) (unknown) (unknown) Lower lumbar s pine interbody fusion, posterior decompression and (units unknown) (unknown) (unknown) (no date) (unknown) (unknown) Lumbar radiculopathy (units unknown) (unknown) (unknown) (no date) (unknown) (unknown) Lumbar spine f ixation appears stable. (units unknown) (unknown) (unknown) (no date) (unknown) (unknown) Lyrica 200 mg b.i.d. (units unknown) (unknown) (unknown) (no date) (unknown) (unknown) MSK: System re viewed and no additional complaints, except as documented. (units unknown) (unknown) (unknown) (no date) (unknown) (unknown) Medical Histor y (units unknown) (unknown) (unknown) (no date) (unknown) (unknown) Medications: (units unknown) (unknown) (unknown) (no date) (unknown) (unknown) Moderate left and right foraminal stenosis (units unknown) (unknown) (unknown) (no date) (unknown) (unknown) Neuro: System reviewed and no additional complaints, except as documented. (units unknown) (unknown) (unknown) (no date) (unknown) (unknown) No suspicious bony lesions.? (units unknown) (unknown) (unknown) (no date) (unknown) (unknown) Noncontrast sa gittal T1 spin echo and T2 fast echo, sagittal STIR, and T2 fast (units unknown) (unknown) (unknown) (no date) (unknown) (unknown) Not indicated at this time. [] (units unknown) (unknown) (unknown) (no date) (unknown) (unknown) Numbness/Tingling: ( units unknown) (unknown) (unknown) (no date) (unknown) (unknown) [place].? H e requested a refill of Lidoderm patches we will also start (units unknown) (unknown) (unknown) (no date) (unknown) (unknown) Objective Data (unit s unknown) (unknown) (unknown) (no date) (unknown) (unknown) Objective Data: (uni ts unknown) (unknown) (unknown) (no date) (unknown) (unknown) Onset/Context of parish n: (units unknown) (unknown) (unknown) (no date) (unknown) (unknown) Onset: ins[place]io us, exacerbated by recent fall (units unknown) (unknown) (unknown) (no date) (unknown) (unknown) Other: acupuncture ( units unknown) (unknown) (unknown) (no date) (unknown) (unknown) PFSH (units unknown) (unknown) (unknown) (no date) (unknown) (unknown) PROCEDURE:? MR LUMBAR SPINE WO CON (units unknown) (unknown) (unknown) (no date) (unknown) (unknown) PROCEDURE:? XR LUMBAR SPINE 2-3V (units unknown) (unknown) (unknown) (no date) (unknown) (unknown) PT: Last PT wa s about 2 months ago in [place] (units unknown) (unknown) (unknown) (no date) (unknown) (unknown) Pain Visit (units unknown) (unknown) (unknown) (no date) (unknown) (unknown) Pain location/Radiation: Back - 'in my back'; Bilateral legs; squeezing of (units unknown) (unknown) (unknown) (no date) (unknown) (unknown) Pain ratin /10 today, 10/10 at worst (units unknown) (unknown) (unknown) (no date) (unknown) (unknown) Paraspinous So ft Tissues:? No paravertebral masses.? (units unknown) (unknown) (unknown) (no date) (unknown) (unknown) Past medical, surgical, social, and family history is unchanged from prior (units unknown) (unknown) (unknown) (no date) (unknown) (unknown) Patient was dawson mark seen here on 06/22/2022 at which time he had bilateral S1 (units unknown) (unknown) (unknown) (no date) (unknown) (unknown) Patient will r eturn for []. Risks and benefits were discussed. (units unknown) (unknown) (unknown) (no date) (unknown) (unknown) Patient's pain has been present for >6 weeks and is an average of >6/10 on 0-10 (units unknown) (unknown) (unknown) (no date) (unknown) (unknown) Patient: Kishor Carrasquillo MR#: [id number] (units unknown) (unknown) (unknown) (no date) (unknown) (unknown) Pertinent medi cations include: (units unknown) (unknown) (unknown) (no date) (unknown) (unknown) Plan (units unknown) (unknown) (unknown) (no date) (unknown) (unknown) Plan/Recommendations : (units unknown) (unknown) (unknown) (no date) (unknown) (unknown) Prescriptions Written: [] (units unknown) (unknown) (unknown) (no date) (unknown) (unknown) Previous Visit Assessment: Kelsey is a 47-year-old male presenting for further (units unknown) (unknown) (unknown) (no date) (unknown) (unknown) Previous pain treatments included: (units unknown) (unknown) (unknown) (no date) (unknown) (unknown) Quality and ti gerri of pain: (units unknown) (unknown) (unknown) (no date) (unknown) (unknown) ROS Narrative (units unknown) (unknown) (unknown) (no date) (unknown) (unknown) ROS Narrative: (unit s unknown) (unknown) (unknown) (no date) (unknown) (unknown) ROS (units unknown) (unknown) (unknown) (no date) (unknown) (unknown) Reason For Visit (un its unknown) (unknown) (unknown) (no date) (unknown) (unknown) Red flag symptoms: ( units unknown) (unknown) (unknown) (no date) (unknown) (unknown) Relieving fact ors include: changing positions, laying down (units unknown) (unknown) (unknown) (no date) (unknown) (unknown) Robaxin 750 mg (unit s unknown) (unknown) (unknown) (no date) (unknown) (unknown) S1 appears (units unknown) (unknown) (unknown) (no date) (unknown) (unknown) Saddle anesthe marina: denies (units unknown) (unknown) (unknown) (no date) (unknown) (unknown) Signed By: (units unknown) (unknown) (unknown) (no date) (unknown) (unknown) Smoking Status : Never smoker (units unknown) (unknown) (unknown) (no date) (unknown) (unknown) Soft tissues:? Overlying bowel gas pattern is normal.? No suspicious soft tissue (units unknown) (unknown) (unknown) (no date) (unknown) (unknown) Spinal Cord:? Conus medullaris terminates at the L1 level.? Visualized cord (units unknown) (unknown) (unknown) (no date) (unknown) (unknown) Standing: incr eased leg and back pain (units unknown) (unknown) (unknown) (no date) (unknown) (unknown) Stat lumbar MR I was done on 06/28/2022 which did not show any acute (units unknown) (unknown) (unknown) (no date) (unknown) (unknown) Surgery: Annmarie nt is s/p L3-S1 posterior instrumented fusion in 2011 (units unknown) (unknown) (unknown) (no date) (unknown) (unknown) T12 compressio n fracture is unchanged. (units unknown) (unknown) (unknown) (no date) (unknown) (unknown) T12-L1:? Disc space is preserved.? No central or foraminal stenosis. (units unknown) (unknown) (unknown) (no date) (unknown) (unknown) TECHNIQUE:? 2 views of the lumbar spine were acquired.? (units unknown) (unknown) (unknown) (no date) (unknown) (unknown) TECHNIQUE:? (units unknown) (unknown) (unknown) (no date) (unknown) (unknown) [facility] (units unknown) (unknown) (unknown) (no date) (unknown) (unknown) This note may have been all or partially generated using voice recognition (units unknown) (unknown) (unknown) (no date) (unknown) (unknown) Tobacco + Subs tance Use (units unknown) (unknown) (unknown) (no date) (unknown) (unknown) Tobacco Status (unit s unknown) (unknown) (unknown) (no date) (unknown) (unknown) Today I have r eviewed available medical information in the patient's medical (units unknown) (unknown) (unknown) (no date) (unknown) (unknown) Visit Reasons: Follow Up ED (units unknown) (unknown) (unknown) (no date) (unknown) (unknown) Walking: incre ased leg and back pain (units unknown) (unknown) (unknown) (no date) (unknown) (unknown) [place] Prescription Monitoring Program (RN LABOR AND DELIVERY) was reviewed. (units unknown) (unknown) (unknown) (no date) (unknown) (unknown) We reviewed et iology, predisposing factor(s), natural course, imaging results as (units unknown) (unknown) (unknown) (no date) (unknown) (unknown) Weakness: denies (un its unknown) (unknown) (unknown) (no date) (unknown) (unknown) abnormalities. He saw his neurosurgeon on 06/30/22. (units unknown) (unknown) (unknown) (no date) (unknown) (unknown) benefits of va rious treatment options were discussed with the patient in great (units unknown) (unknown) (unknown) (no date) (unknown) (unknown) bilateral fora solo stenosis (units unknown) (unknown) (unknown) (no date) (unknown) (unknown) bilateral test icles R>L (units unknown) (unknown) (unknown) (no date) (unknown) (unknown) bowel/bladder dysfunction, and perineal numbness were discussed. The patient was (units unknown) (unknown) (unknown) (no date) (unknown) (unknown) calcifications.? (un its unknown) (unknown) (unknown) (no date) (unknown) (unknown) cannot tolerat e physical therapy at the current time due to the intensity of the (units unknown) (unknown) (unknown) (no date) (unknown) (unknown) central stenosis. (u nits unknown) (unknown) (unknown) (no date) (unknown) (unknown) central stenos is.? Hypertrophic facet joints contribute to moderate bilateral (units unknown) (unknown) (unknown) (no date) (unknown) (unknown) change from (units unknown) (unknown) (unknown) (no date) (unknown) (unknown) demonstrates (units unknown) (unknown) (unknown) (no date) (unknown) (unknown) detail. (units unknown) (unknown) (unknown) (no date) (unknown) (unknown) evaluation of chronic low back pain with radiation to bilateral lower (units unknown) (unknown) (unknown) (no date) (unknown) (unknown) extremities.? He has a complicated history of low back pain including multiple (units unknown) (unknown) (unknown) (no date) (unknown) (unknown) foraminal (units unknown) (unknown) (unknown) (no date) (unknown) (unknown) from prior exam (uni ts unknown) (unknown) (unknown) (no date) (unknown) (unknown) have occurred. If there are any questions, please contact the Medical Records (units unknown) (unknown) (unknown) (no date) (unknown) (unknown) improved sleep , improved mobility, etc. (units unknown) (unknown) (unknown) (no date) (unknown) (unknown) in PT. [] (units unknown) (unknown) (unknown) (no date) (unknown) (unknown) instructed to report to the Emergency department, if these symptoms occur. (units unknown) (unknown) (unknown) (no date) (unknown) (unknown) instructed to stop if any side effects. [] (units unknown) (unknown) (unknown) (no date) (unknown) (unknown) instrumentatio n, stable (units unknown) (unknown) (unknown) (no date) (unknown) (unknown) interested in starting physical therapy and a referral was placed to her auto in (units unknown) (unknown) (unknown) (no date) (unknown) (unknown) intravenous dr ug use, sustained glucocorticoid use, osteoporosis, or a focal (units unknown) (unknown) (unknown) (no date) (unknown) (unknown) local anesthet ic. During that time patient able to participate in ADLs, had (units unknown) (unknown) (unknown) (no date) (unknown) (unknown) lumbar spine operations as well as multiple pain injections.? He notes good (units unknown) (unknown) (unknown) (no date) (unknown) (unknown) may be performed.? ( units unknown) (unknown) (unknown) (no date) (unknown) (unknown) may occur. Occ asional wrong-word or 'sound-alike' substitutions may have (units unknown) (unknown) (unknown) (no date) (unknown) (unknown) meds. [] (units unknown) (unknown) (unknown) (no date) (unknown) (unknown) milk Allergy ( Mild, Verified 06/23/22 22:24) (units unknown) (unknown) (unknown) (no date) (unknown) (unknown) neurological d eficit with progressive or disabling symptoms. (units unknown) (unknown) (unknown) (no date) (unknown) (unknown) normal signal and size.? (units unknown) (unknown) (unknown) (no date) (unknown) (unknown) occurred due t o the inherent limitations of voice recognition software. Please (units unknown) (unknown) (unknown) (no date) (unknown) (unknown) or immunosuppr essive therapy, previous or current cancer diagnosis, history of (units unknown) (unknown) (unknown) (no date) (unknown) (unknown) pain resolved within he complained of left lower leg as well as foot numbness. (units unknown) (unknown) (unknown) (no date) (unknown) (unknown) pain. [] (units unknown) (unknown) (unknown) (no date) (unknown) (unknown) read the note carefully and recognize, using context, where these substitutions (units unknown) (unknown) (unknown) (no date) (unknown) (unknown) record, includ ing relevant provider notes, laboratory work, and imaging. (units unknown) (unknown) (unknown) (no date) (unknown) (unknown) relief after S 1 transforaminal MARI in the past.? He would likely benefit from a (units unknown) (unknown) (unknown) (no date) (unknown) (unknown) repeat bilater al S1 transforaminal epidural steroid injection.? He is also (units unknown) (unknown) (unknown) (no date) (unknown) (unknown) jules and (units unknown) (unknown) (unknown) (no date) (unknown) (unknown) scale and/or p ain interferes with ADLs. 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 (units unknown) (unknown) (unknown) (no date) (unknown) (unknown) severe (units unknown) (unknown) (unknown) (no date) (unknown) (unknown) software. Alth ough every effort is made to edit content, manager inside errors (units unknown) (unknown) (unknown) (no date) (unknown) (unknown) spin echo (units unknown) (unknown) (unknown) (no date) (unknown) (unknown) stable.? 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 T12 compression fracture, (units unknown) (unknown) (unknown) (no date) (unknown) (unknown) stenosis (units unknown) (unknown) (unknown) (no date) (unknown) (unknown) stenosis.? Mild (uni ts unknown) (unknown) (unknown) (no date) (unknown) (unknown) stenosis.? (units unknown) (unknown) (unknown) (no date) (unknown) (unknown) stimulator for chronic low back pain.' (units unknown) (unknown) (unknown) (no date) (unknown) (unknown) the prior exam .? No retropulsed fracture fragment. (units unknown) (unknown) (unknown) (no date) (unknown) (unknown) therapeutic in jections and surgery. The risks, consequences, alternatives and (units unknown) (unknown) (unknown) (no date) (unknown) (unknown) therapy. ?A re ferral was provided for the patient. [] (units unknown) (unknown) (unknown) (no date) (unknown) (unknown) through the [facility] spine.? In cases with scoliosis, additional coronal T2 fast (units unknown) (unknown) (unknown) (no date) (unknown) (unknown) to severe (units unknown) (unknown) (unknown) (no date) (unknown) (unknown) tramadol for short-term use.? He is currently being evaluated for spinal cord (units unknown) (unknown) (unknown) (no date) (unknown) (unknown) transforaminal MARI. After the injection he noted increased low back pain. This (units unknown) (unknown) (unknown) (no date) (unknown) (unknown) unchanged.? (units unknown) (unknown) (unknown) (no date) (unknown) (unknown) visit. (units unknown) (unknown) (unknown) (no date) (unknown) (unknown) well as treatm ent options including medications, physical therapy/exercise, (units unknown) (unknown) (unknown) (no date) (unknown) (unknown) with future tr eatment planning. [] (units unknown) (unknown) Result panel 43 (unknown) (no date) (unknown) (unknown) (no value) (units unknown) (unknown) (unknown) (no date) (unknown) (unknown) - Activity: Co ntinue activity as tolerated. [] (units unknown) (unknown) (unknown) (no date) (unknown) (unknown) - Chiropractor , acupuncture[] (units unknown) (unknown) (unknown) (no date) (unknown) (unknown) - Continues cl inician directed home exercise program including exercises learned (units unknown) (unknown) (unknown) (no date) (unknown) (unknown) - Education: C auda equina and associated symptoms, including motor weakness, (units unknown) (unknown) (unknown) (no date) (unknown) (unknown) - Follow-up: [] (uni ts unknown) (unknown) (unknown) (no date) (unknown) (unknown) - I discussed risks, benefits and side effects. Additionally, patient was (units unknown) (unknown) (unknown) (no date) (unknown) (unknown) - Imaging: No new imaging indicated at this time. [] (units unknown) (unknown) (unknown) (no date) (unknown) (unknown) - Interventional/Surgica l procedures: None indicated at this time. [] (units unknown) (unknown) (unknown) (no date) (unknown) (unknown) - Medications: No new prescription at this time. Patient will continue current (units unknown) (unknown) (unknown) (no date) (unknown) (unknown) - Medications: acetaminophen, NSAIDS, neuropathics, muscle relaxants [] (units unknown) (unknown) (unknown) (no date) (unknown) (unknown) - Physical The rapy: Completed 6 week course in the last 6 months OR Patient (units unknown) (unknown) (unknown) (no date) (unknown) (unknown) - Physical therapy/modalities/DME : Patient will likely benefit from physical (units unknown) (unknown) (unknown) (no date) (unknown) (unknown) - Prescription provided and uptitration instructions given if necessary. [] (units unknown) (unknown) (unknown) (no date) (unknown) (unknown) - Previous [] on [] provided []% relief of pain for the expected duration of the (units unknown) (unknown) (unknown) (no date) (unknown) (unknown) - Referrals: N one indicated at this time. [] (units unknown) (unknown) (unknown) (no date) (unknown) (unknown) -to-moderate b ilateral foraminal stenosis (units unknown) (unknown) (unknown) (no date) (unknown) (unknown) 06/29/22 (units unknown) (unknown) (unknown) (no date) (unknown) (unknown) 05/22/2021, 2:31.? (u nits unknown) (unknown) (unknown) (no date) (unknown) (unknown) 990 (units unknown) (unknown) (unknown) (no date) (unknown) (unknown) ? (units unknown) (unknown) (unknown) (no date) (unknown) (unknown) ? Acetaminophen (units unknown) (unknown) (unknown) (no date) (unknown) (unknown) ? Antidepressants (units unknown) (unknown) (unknown) (no date) (unknown) (unknown) ? Antiepileptics (units unknown) (unknown) (unknown) (no date) (unknown) (unknown) ? Mu scle Relaxants (units unknown) (unknown) (unknown) (no date) (unknown) (unknown) ? NSAIDs ( units unknown) (unknown) (unknown) (no date) (unknown) (unknown) ? Opioids (units unknown) (unknown) (unknown) (no date) (unknown) (unknown) ? Steroids (units unknown) (unknown) (unknown) (no date) (unknown) (unknown) ? Topicals (units unknown) (unknown) (unknown) (no date) (unknown) (unknown) Accompanied by : PARTNER: PADMA (units unknown) (unknown) (unknown) (no date) (unknown) (unknown) Age/Sex: 47 / M Date of Service: (units unknown) (unknown) (unknown) (no date) (unknown) (unknown) Aggravating fa ctors include: multiple body positions (units unknown) (unknown) (unknown) (no date) (unknown) (unknown) Alignment and Curvature:? There is normal bony alignment.? (units unknown) (unknown) (unknown) (no date) (unknown) (unknown) All other syst ems reviewed and are unremarkable except as noted in HPI. (units unknown) (unknown) (unknown) (no date) (unknown) (unknown) Allergies (units unknown) (unknown) (unknown) (no date) (unknown) (unknown) [place] [id number] (units unknown) (unknown) (unknown) (no date) (unknown) (unknown) Approved by: Vale Aden M.D. on 06/07/2022 at 14:37? (units unknown) (unknown) (unknown) (no date) (unknown) (unknown) Approved by: Fercho Khan M.D. on 06/04/2022 at 21:57 ? (units unknown) (unknown) (unknown) (no date) (unknown) (unknown) Assessment + Plan (u nits unknown) (unknown) (unknown) (no date) (unknown) (unknown) Assessment: (units unknown) (unknown) (unknown) (no date) (unknown) (unknown) Attending Dr: Dhiraj Daigle MD (units unknown) (unknown) (unknown) (no date) (unknown) (unknown) B/L S1 TFESI ( Dr. Blari) 05/26/2021 ? Improved pain for 1 month (units unknown) (unknown) (unknown) (no date) (unknown) (unknown) Bone Marrow:? Wedge-shaped compression fracture T12 without marrow edema or (units unknown) (unknown) (unknown) (no date) (unknown) (unknown) Bones:? 5 [id number]-[id number] vertebrae are present.? Pedicle screw fixation at L3 (units unknown) (unknown) (unknown) (no date) (unknown) (unknown) Bowel and blad kael: No loss of control (units unknown) (unknown) (unknown) (no date) (unknown) (unknown) COMPARISON:? [facility], MR, MR LUMBAR SPINE WO CON, 03/09/2022, 20:09. (units unknown) (unknown) (unknown) (no date) (unknown) (unknown) COMPARISON:? S Located within [facility], CR, XR LUMBAR SPINE 2 OR 3 VIEWS, (units unknown) (unknown) (unknown) (no date) (unknown) (unknown) Caudal ? No improvement (units unknown) (unknown) (unknown) (no date) (unknown) (unknown) Chart review: (units unknown) (unknown) (unknown) (no date) (unknown) (unknown) Chief Complaint (uni ts unknown) (unknown) (unknown) (no date) (unknown) (unknown) Chief Complain t: Follow-up (units unknown) (unknown) (unknown) (no date) (unknown) (unknown) Chronic T12 compression fracture without retropulsed fracture fragment (units unknown) (unknown) (unknown) (no date) (unknown) (unknown) Conservative management includes: (units unknown) (unknown) (unknown) (no date) (unknown) (unknown) Continue [facility]. [] (units unknown) (unknown) (unknown) (no date) (unknown) (unknown) Continue home exercise program. 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 (units unknown) (unknown) (unknown) (no date) (unknown) (unknown) Details: (units unknown) (unknown) (unknown) (no date) (unknown) (unknown) Dictated by: Fercho Khan M.D. on 06/04/2022 at 21:55 ? ? (units unknown) (unknown) (unknown) (no date) (unknown) (unknown) Documented By: Dhiraj Daigle MD 07/03/22 0803 (units unknown) (unknown) (unknown) (no date) (unknown) (unknown) Draft (units unknown) (unknown) (unknown) (no date) (unknown) (unknown) Duloxetine 60 mg (un its unknown) (unknown) (unknown) (no date) (unknown) (unknown) FINDINGS:? (units unknown) (unknown) (unknown) (no date) (unknown) (unknown) Follow Up ED x 4 [2 visits at , 2 at [place]] (units unknown) (unknown) (unknown) (no date) (unknown) (unknown) HPI (units unknown) (unknown) (unknown) (no date) (unknown) (unknown) He went to the ED at [facility] twice as well as an outside hospital twice. (units unknown) (unknown) (unknown) (no date) (unknown) (unknown) IMPRESSION:? (units unknown) (unknown) (unknown) (no date) (unknown) (unknown) INDICATIONS:? New lower extremity weakness, pain exacerbation after twist (units unknown) (unknown) (unknown) (no date) (unknown) (unknown) INDICATIONS:? hx of multiple back surgeries with pain after fall (units unknown) (unknown) (unknown) (no date) (unknown) (unknown) Image quality: ? Excellent.? (units unknown) (unknown) (unknown) (no date) (unknown) (unknown) Injections: (units unknown) (unknown) (unknown) (no date) (unknown) (unknown) Intake Clinical Staf f (units unknown) (unknown) (unknown) (no date) (unknown) (unknown) Intake Note: (units unknown) (unknown) (unknown) (no date) (unknown) (unknown) Intake perform ed by: Paola Whitfield (units unknown) (unknown) (unknown) (no date) (unknown) (unknown) Intake (units unknown) (unknown) (unknown) (no date) (unknown) (unknown) Interval History: (u nits unknown) (unknown) (unknown) (no date) (unknown) (unknown) Intervention:?Date:?Outcome:?? ? (units unknown) (unknown) (unknown) (no date) (unknown) (unknown) [facility], MR, MR LUMBAR SPINE WO CON, 03/09/2022, 20:09. (units unknown) (unknown) (unknown) (no date) (unknown) (unknown) JUSTIFICATION OF MEDICAL NECESSITY (units unknown) (unknown) (unknown) (no date) (unknown) (unknown) L-spine/T-spin e/C-spin e MRI ordered to better delineate the anatomy and help (units unknown) (unknown) (unknown) (no date) (unknown) (unknown) L1-L2:? Disc s pace is preserved.? No central or foraminal stenosis (units unknown) (unknown) (unknown) (no date) (unknown) (unknown) L2-L3:? Disc s pace narrowing and circumferential disc bulge results in moderate (units unknown) (unknown) (unknown) (no date) (unknown) (unknown) L3, L4 and L5 decompressive laminectomies with interbody fusion and posterior (units unknown) (unknown) (unknown) (no date) (unknown) (unknown) L3-L4:? Discec madonna and fusion with posterior decompression.? No central (units unknown) (unknown) (unknown) (no date) (unknown) (unknown) L4-L5:? Discec madonna and fusion with posterior decompression.? No central (units unknown) (unknown) (unknown) (no date) (unknown) (unknown) L5-S1:? Discec madonna and fusion with posterior decompression.? No central (units unknown) (unknown) (unknown) (no date) (unknown) (unknown) Lidoderm patch (unit s unknown) (unknown) (unknown) (no date) (unknown) (unknown) Loc: PAIN (units unknown) (unknown) (unknown) (no date) (unknown) (unknown) Lower lumbar s pine interbody fusion, posterior decompression and (units unknown) (unknown) (unknown) (no date) (unknown) (unknown) Lumbar radiculopathy (units unknown) (unknown) (unknown) (no date) (unknown) (unknown) Lumbar spine f ixation appears stable. (units unknown) (unknown) (unknown) (no date) (unknown) (unknown) Lyrica 200 mg b.i.d. (units unknown) (unknown) (unknown) (no date) (unknown) (unknown) MSK: System re viewed and no additional complaints, except as documented. (units unknown) (unknown) (unknown) (no date) (unknown) (unknown) Medical Histor y (units unknown) (unknown) (unknown) (no date) (unknown) (unknown) Medications: (units unknown) (unknown) (unknown) (no date) (unknown) (unknown) Moderate left and right foraminal stenosis (units unknown) (unknown) (unknown) (no date) (unknown) (unknown) Neuro: System reviewed and no additional complaints, except as documented. (units unknown) (unknown) (unknown) (no date) (unknown) (unknown) No suspicious bony lesions.? (units unknown) (unknown) (unknown) (no date) (unknown) (unknown) Noncontrast sa gittal T1 spin echo and T2 fast echo, sagittal STIR, and T2 fast (units unknown) (unknown) (unknown) (no date) (unknown) (unknown) Not indicated at this time. [] (units unknown) (unknown) (unknown) (no date) (unknown) (unknown) Numbness/Tingling: ( units unknown) (unknown) (unknown) (no date) (unknown) (unknown) [employer].? H e requested a refill of Lidoderm patches we will also start (units unknown) (unknown) (unknown) (no date) (unknown) (unknown) Objective Data (unit s unknown) (unknown) (unknown) (no date) (unknown) (unknown) Objective Data: (uni ts unknown) (unknown) (unknown) (no date) (unknown) (unknown) Onset/Context of parish n: (units unknown) (unknown) (unknown) (no date) (unknown) (unknown) Onset: ins[place] us, exacerbated by recent fall (units unknown) (unknown) (unknown) (no date) (unknown) (unknown) Other: acupuncture ( units unknown) (unknown) (unknown) (no date) (unknown) (unknown) PFSH (units unknown) (unknown) (unknown) (no date) (unknown) (unknown) PROCEDURE:? MR LUMBAR SPINE WO CON (units unknown) (unknown) (unknown) (no date) (unknown) (unknown) PROCEDURE:? XR LUMBAR SPINE 2-3V (units unknown) (unknown) (unknown) (no date) (unknown) (unknown) PT: Last PT wa s about 2 months ago in [place] (units unknown) (unknown) (unknown) (no date) (unknown) (unknown) Pain Visit (units unknown) (unknown) (unknown) (no date) (unknown) (unknown) Pain location/Radiation: Back - 'in my back'; Bilateral legs; squeezing of (units unknown) (unknown) (unknown) (no date) (unknown) (unknown) Pain ratin /10 today, 10/10 at worst (units unknown) (unknown) (unknown) (no date) (unknown) (unknown) Paraspinous So ft Tissues:? No paravertebral masses.? (units unknown) (unknown) (unknown) (no date) (unknown) (unknown) Past medical, surgical, social, and family history is unchanged from prior (units unknown) (unknown) (unknown) (no date) (unknown) (unknown) Patient was la seen here on 06/22/2022 at which time he had bilateral S1 (units unknown) (unknown) (unknown) (no date) (unknown) (unknown) Patient will r eturn for []. Risks and benefits were discussed. (units unknown) (unknown) (unknown) (no date) (unknown) (unknown) Patient's pain has been present for >6 weeks and is an average of >6/10 on 0-10 (units unknown) (unknown) (unknown) (no date) (unknown) (unknown) Patient: Kishor Carrasquillo MR#: [id number] (units unknown) (unknown) (unknown) (no date) (unknown) (unknown) Pertinent medi cations include: (units unknown) (unknown) (unknown) (no date) (unknown) (unknown) Plan (units unknown) (unknown) (unknown) (no date) (unknown) (unknown) Plan/Recommendations : (units unknown) (unknown) (unknown) (no date) (unknown) (unknown) Prescriptions Written: [] (units unknown) (unknown) (unknown) (no date) (unknown) (unknown) Previous Visit Assessment: Kelsey is a 47-year-old male presenting for further (units unknown) (unknown) (unknown) (no date) (unknown) (unknown) Previous pain treatments included: (units unknown) (unknown) (unknown) (no date) (unknown) (unknown) Quality and ti gerri of pain: (units unknown) (unknown) (unknown) (no date) (unknown) (unknown) ROS Narrative (units unknown) (unknown) (unknown) (no date) (unknown) (unknown) ROS Narrative: (unit s unknown) (unknown) (unknown) (no date) (unknown) (unknown) ROS (units unknown) (unknown) (unknown) (no date) (unknown) (unknown) Reason For Visit (un its unknown) (unknown) (unknown) (no date) (unknown) (unknown) Red flag symptoms: ( units unknown) (unknown) (unknown) (no date) (unknown) (unknown) Relieving fact ors include: changing positions, laying down (units unknown) (unknown) (unknown) (no date) (unknown) (unknown) Robaxin 750 mg (unit s unknown) (unknown) (unknown) (no date) (unknown) (unknown) S/P (units unknown) (unknown) (unknown) (no date) (unknown) (unknown) S1 appears (units unknown) (unknown) (unknown) (no date) (unknown) (unknown) Saddle anesthe marina: denies (units unknown) (unknown) (unknown) (no date) (unknown) (unknown) Signed By: (units unknown) (unknown) (unknown) (no date) (unknown) (unknown) Smoking Status : Never smoker (units unknown) (unknown) (unknown) (no date) (unknown) (unknown) Soft tissues:? Overlying bowel gas pattern is normal.? No suspicious soft tissue (units unknown) (unknown) (unknown) (no date) (unknown) (unknown) Spinal Cord:? Conus medullaris terminates at the L1 level.? Visualized cord (units unknown) (unknown) (unknown) (no date) (unknown) (unknown) Standing: incr eased leg and back pain (units unknown) (unknown) (unknown) (no date) (unknown) (unknown) Stat lumbar MR I was done on 06/28/2022 which did not show any acute (units unknown) (unknown) (unknown) (no date) (unknown) (unknown) Surgery: Patie nt is s/p L3-S1 posterior instrumented fusion in 2011 (units unknown) (unknown) (unknown) (no date) (unknown) (unknown) T12 compressio n fracture is unchanged. (units unknown) (unknown) (unknown) (no date) (unknown) (unknown) T12-L1:? Disc space is preserved.? No central or foraminal stenosis. (units unknown) (unknown) (unknown) (no date) (unknown) (unknown) TECHNIQUE:? 2 views of the lumbar spine were acquired.? (units unknown) (unknown) (unknown) (no date) (unknown) (unknown) TECHNIQUE:? (units unknown) (unknown) (unknown) (no date) (unknown) (unknown) [facility] (units unknown) (unknown) (unknown) (no date) (unknown) (unknown) This note may have been all or partially generated using voice recognition (units unknown) (unknown) (unknown) (no date) (unknown) (unknown) Tobacco + Subs tance Use (units unknown) (unknown) (unknown) (no date) (unknown) (unknown) Tobacco Status (unit s unknown) (unknown) (unknown) (no date) (unknown) (unknown) Today I have r eviewed available medical information in the patient's medical (units unknown) (unknown) (unknown) (no date) (unknown) (unknown) Visit Reasons: Follow Up ED (units unknown) (unknown) (unknown) (no date) (unknown) (unknown) Walking: incre ased leg and back pain (units unknown) (unknown) (unknown) (no date) (unknown) (unknown) [place] Prescription Monitoring Program (RN LABOR AND DELIVERY) was reviewed. (units unknown) (unknown) (unknown) (no date) (unknown) (unknown) We reviewed et iology, predisposing factor(s), natural course, imaging results as (units unknown) (unknown) (unknown) (no date) (unknown) (unknown) Weakness: denies (un its unknown) (unknown) (unknown) (no date) (unknown) (unknown) abnormalities. He saw his neurosurgeon on 06/30/22. (units unknown) (unknown) (unknown) (no date) (unknown) (unknown) benefits of va rious treatment options were discussed with the patient in great (units unknown) (unknown) (unknown) (no date) (unknown) (unknown) bilateral fora solo stenosis (units unknown) (unknown) (unknown) (no date) (unknown) (unknown) bilateral test icles R>L (units unknown) (unknown) (unknown) (no date) (unknown) (unknown) bowel/bladder dysfunction, and perineal numbness were discussed. The patient was (units unknown) (unknown) (unknown) (no date) (unknown) (unknown) calcifications.? (un its unknown) (unknown) (unknown) (no date) (unknown) (unknown) cannot tolerat e physical therapy at the current time due to the intensity of the (units unknown) (unknown) (unknown) (no date) (unknown) (unknown) central stenosis. (u nits unknown) (unknown) (unknown) (no date) (unknown) (unknown) central stenos is.? Hypertrophic facet joints contribute to moderate bilateral (units unknown) (unknown) (unknown) (no date) (unknown) (unknown) change from (units unknown) (unknown) (unknown) (no date) (unknown) (unknown) demonstrates (units unknown) (unknown) (unknown) (no date) (unknown) (unknown) detail. (units unknown) (unknown) (unknown) (no date) (unknown) (unknown) evaluation of chronic low back pain with radiation to bilateral lower (units unknown) (unknown) (unknown) (no date) (unknown) (unknown) extremities.? He has a complicated history of low back pain including multiple (units unknown) (unknown) (unknown) (no date) (unknown) (unknown) foraminal (units unknown) (unknown) (unknown) (no date) (unknown) (unknown) from prior exam (uni ts unknown) (unknown) (unknown) (no date) (unknown) (unknown) have occurred. If there are any questions, please contact the Medical Records (units unknown) (unknown) (unknown) (no date) (unknown) (unknown) improved sleep , improved mobility, etc. (units unknown) (unknown) (unknown) (no date) (unknown) (unknown) in PT. [] (units unknown) (unknown) (unknown) (no date) (unknown) (unknown) instructed to report to the Emergency department, if these symptoms occur. (units unknown) (unknown) (unknown) (no date) (unknown) (unknown) instructed to stop if any side effects. [] (units unknown) (unknown) (unknown) (no date) (unknown) (unknown) instrumentatio n, stable (units unknown) (unknown) (unknown) (no date) (unknown) (unknown) interested in starting physical therapy and a referral was placed to her auto in (units unknown) (unknown) (unknown) (no date) (unknown) (unknown) intravenous dr ug use, sustained glucocorticoid use, osteoporosis, or a focal (units unknown) (unknown) (unknown) (no date) (unknown) (unknown) local anesthet ic. During that time patient able to participate in ADLs, had (units unknown) (unknown) (unknown) (no date) (unknown) (unknown) lumbar spine operations as well as multiple pain injections.? He notes good (units unknown) (unknown) (unknown) (no date) (unknown) (unknown) may be performed.? ( units unknown) (unknown) (unknown) (no date) (unknown) (unknown) may occur. Occ asional wrong-word or 'sound-alike' substitutions may have (units unknown) (unknown) (unknown) (no date) (unknown) (unknown) meds. [] (units unknown) (unknown) (unknown) (no date) (unknown) (unknown) milk Allergy ( Mild, Verified 06/23/22 22:24) (units unknown) (unknown) (unknown) (no date) (unknown) (unknown) neurological d eficit with progressive or disabling symptoms. (units unknown) (unknown) (unknown) (no date) (unknown) (unknown) normal signal and size.? (units unknown) (unknown) (unknown) (no date) (unknown) (unknown) occurred due t o the inherent limitations of voice recognition software. Please (units unknown) (unknown) (unknown) (no date) (unknown) (unknown) or immunosuppr essive therapy, previous or current cancer diagnosis, history of (units unknown) (unknown) (unknown) (no date) (unknown) (unknown) pain resolved within he complained of left lower leg as well as foot numbness. (units unknown) (unknown) (unknown) (no date) (unknown) (unknown) pain. [] (units unknown) (unknown) (unknown) (no date) (unknown) (unknown) read the note carefully and recognize, using context, where these substitutions (units unknown) (unknown) (unknown) (no date) (unknown) (unknown) record, includ ing relevant provider notes, laboratory work, and imaging. (units unknown) (unknown) (unknown) (no date) (unknown) (unknown) relief after S 1 transforaminal MARI in the past.? He would likely benefit from a (units unknown) (unknown) (unknown) (no date) (unknown) (unknown) repeat bilater al S1 transforaminal epidural steroid injection.? He is also (units unknown) (unknown) (unknown) (no date) (unknown) (unknown) jules and (units unknown) (unknown) (unknown) (no date) (unknown) (unknown) scale and/or p ain interferes with ADLs. 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 (units unknown) (unknown) (unknown) (no date) (unknown) (unknown) severe (units unknown) (unknown) (unknown) (no date) (unknown) (unknown) software. Alth ough every effort is made to edit content, manager inside errors (units unknown) (unknown) (unknown) (no date) (unknown) (unknown) spin echo (units unknown) (unknown) (unknown) (no date) (unknown) (unknown) stable.? 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 T12 compression fracture, (units unknown) (unknown) (unknown) (no date) (unknown) (unknown) stenosis (units unknown) (unknown) (unknown) (no date) (unknown) (unknown) stenosis.? Mild (uni ts unknown) (unknown) (unknown) (no date) (unknown) (unknown) stenosis.? (units unknown) (unknown) (unknown) (no date) (unknown) (unknown) stimulator for chronic low back pain.' (units unknown) (unknown) (unknown) (no date) (unknown) (unknown) the prior exam .? No retropulsed fracture fragment. (units unknown) (unknown) (unknown) (no date) (unknown) (unknown) therapeutic in jections and surgery. The risks, consequences, alternatives and (units unknown) (unknown) (unknown) (no date) (unknown) (unknown) therapy. ?A re ferral was provided for the patient. [] (units unknown) (unknown) (unknown) (no date) (unknown) (unknown) through the [facility] spine.? In cases with scoliosis, additional coronal T2 fast (units unknown) (unknown) (unknown) (no date) (unknown) (unknown) to severe (units unknown) (unknown) (unknown) (no date) (unknown) (unknown) tramadol for short-term use.? He is currently being evaluated for spinal cord (units unknown) (unknown) (unknown) (no date) (unknown) (unknown) transforaminal MARI. After the injection he noted increased low back pain. This (units unknown) (unknown) (unknown) (no date) (unknown) (unknown) unchanged.? (units unknown) (unknown) (unknown) (no date) (unknown) (unknown) visit. (units unknown) (unknown) (unknown) (no date) (unknown) (unknown) well as treatm ent options including medications, physical therapy/exercise, (units unknown) (unknown) (unknown) (no date) (unknown) (unknown) with future tr eatment planning. [] (units unknown) (unknown) Result panel 44 (unknown) (no date) (unknown) (unknown) (no value) (units unknown) (unknown) (unknown) (no date) (unknown) (unknown) - Activity: Co ntinue activity as tolerated. [] (units unknown) (unknown) (unknown) (no date) (unknown) (unknown) - Chiropractor , acupuncture[] (units unknown) (unknown) (unknown) (no date) (unknown) (unknown) - Continues cl inician directed home exercise program including exercises learned (units unknown) (unknown) (unknown) (no date) (unknown) (unknown) - Education: C auda equina and associated symptoms, including motor weakness, (units unknown) (unknown) (unknown) (no date) (unknown) (unknown) - Follow-up: [] (uni ts unknown) (unknown) (unknown) (no date) (unknown) (unknown) - I discussed risks, benefits and side effects. Additionally, patient was (units unknown) (unknown) (unknown) (no date) (unknown) (unknown) - Imaging: No new imaging indicated at this time. [] (units unknown) (unknown) (unknown) (no date) (unknown) (unknown) - Interventional/Surgica l procedures: None indicated at this time. [] (units unknown) (unknown) (unknown) (no date) (unknown) (unknown) - Medications: No new prescription at this time. Patient will continue current (units unknown) (unknown) (unknown) (no date) (unknown) (unknown) - Medications: acetaminophen, NSAIDS, neuropathics, muscle relaxants [] (units unknown) (unknown) (unknown) (no date) (unknown) (unknown) - Physical The rapy: Completed 6 week course in the last 6 months OR Patient (units unknown) (unknown) (unknown) (no date) (unknown) (unknown) - Physical therapy/modalities/DME : Patient will likely benefit from physical (units unknown) (unknown) (unknown) (no date) (unknown) (unknown) - Prescription provided and uptitration instructions given if necessary. [] (units unknown) (unknown) (unknown) (no date) (unknown) (unknown) - Previous [] on [] provided []% relief of pain for the expected duration of the (units unknown) (unknown) (unknown) (no date) (unknown) (unknown) - Referrals: N one indicated at this time. [] (units unknown) (unknown) (unknown) (no date) (unknown) (unknown) -to-moderate b ilateral foraminal stenosis (units unknown) (unknown) (unknown) (no date) (unknown) (unknown) 06/29/22 (units unknown) (unknown) (unknown) (no date) (unknown) (unknown) 07/03/22] (units unknown) (unknown) (unknown) (no date) (unknown) (unknown) 05/22/2021, 2:31.? (u nits unknown) (unknown) (unknown) (no date) (unknown) (unknown) 990 (units unknown) (unknown) (unknown) (no date) (unknown) (unknown) ? (units unknown) (unknown) (unknown) (no date) (unknown) (unknown) ? Acetaminophen (units unknown) (unknown) (unknown) (no date) (unknown) (unknown) ? Antidepressants (units unknown) (unknown) (unknown) (no date) (unknown) (unknown) ? Antiepileptics (units unknown) (unknown) (unknown) (no date) (unknown) (unknown) ? Mu scle Relaxants (units unknown) (unknown) (unknown) (no date) (unknown) (unknown) ? NSAIDs ( units unknown) (unknown) (unknown) (no date) (unknown) (unknown) ? Opioids (units unknown) (unknown) (unknown) (no date) (unknown) (unknown) ? Steroids (units unknown) (unknown) (unknown) (no date) (unknown) (unknown) ? Topicals (units unknown) (unknown) (unknown) (no date) (unknown) (unknown) Accompanied by : PARTNER: PADMA (units unknown) (unknown) (unknown) (no date) (unknown) (unknown) Age/Sex: 47 / M Date of Service: (units unknown) (unknown) (unknown) (no date) (unknown) (unknown) Aggravating fa ctors include: multiple body positions (units unknown) (unknown) (unknown) (no date) (unknown) (unknown) Alignment and Curvature:? There is normal bony alignment.? (units unknown) (unknown) (unknown) (no date) (unknown) (unknown) All other syst ems reviewed and are unremarkable except as noted in HPI. (units unknown) (unknown) (unknown) (no date) (unknown) (unknown) Allergies (units unknown) (unknown) (unknown) (no date) (unknown) (unknown) [place] [id number] (units unknown) (unknown) (unknown) (no date) (unknown) (unknown) Approved by: Vale Aden M.D. on 06/07/2022 at 14:37? (units unknown) (unknown) (unknown) (no date) (unknown) (unknown) Approved by: Fercho Khan M.D. on 06/04/2022 at 21:57 ? (units unknown) (unknown) (unknown) (no date) (unknown) (unknown) Assessment + Plan (u nits unknown) (unknown) (unknown) (no date) (unknown) (unknown) Assessment: (units unknown) (unknown) (unknown) (no date) (unknown) (unknown) Attending Dr: Dhiraj Daigle MD (units unknown) (unknown) (unknown) (no date) (unknown) (unknown) B/L S1 TFESI ( Dr. Blair) 05/26/2021 ? Improved pain for 1 month (units unknown) (unknown) (unknown) (no date) (unknown) (unknown) Bone Marrow:? Wedge-shaped compression fracture T12 without marrow edema or (units unknown) (unknown) (unknown) (no date) (unknown) (unknown) Bones:? 5 [id number] vertebrae are present.? Pedicle screw fixation at L3 (units unknown) (unknown) (unknown) (no date) (unknown) (unknown) Bowel and blad kael: No loss of control (units unknown) (unknown) (unknown) (no date) (unknown) (unknown) COMPARISON:? [facility], MR, MR LUMBAR SPINE WO CON, 03/09/2022, 20:09. (units unknown) (unknown) (unknown) (no date) (unknown) (unknown) COMPARISON:? [facility], CR, XR LUMBAR SPINE 2 OR 3 VIEWS, (units unknown) (unknown) (unknown) (no date) (unknown) (unknown) Caudal ? No improvement (units unknown) (unknown) (unknown) (no date) (unknown) (unknown) Chart review: (units unknown) (unknown) (unknown) (no date) (unknown) (unknown) Chief Complaint (uni ts unknown) (unknown) (unknown) (no date) (unknown) (unknown) Chief Complain t: Follow-up (units unknown) (unknown) (unknown) (no date) (unknown) (unknown) Chronic T12 compression fracture without retropulsed fracture fragment (units unknown) (unknown) (unknown) (no date) (unknown) (unknown) Confirmed 07/03/22] (units unknown) (unknown) (unknown) (no date) (unknown) (unknown) Conservative management includes: (units unknown) (unknown) (unknown) (no date) (unknown) (unknown) Continue [facility] therapy. [] (units unknown) (unknown) (unknown) (no date) (unknown) (unknown) Continue home exercise program. 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 (units unknown) (unknown) (unknown) (no date) (unknown) (unknown) Details: (units unknown) (unknown) (unknown) (no date) (unknown) (unknown) Dictated by: Fercho Khan M.D. on 06/04/2022 at 21:55 ? ? (units unknown) (unknown) (unknown) (no date) (unknown) (unknown) Documented By: Dhiraj Daigle MD 07/03/22 0803 (units unknown) (unknown) (unknown) (no date) (unknown) (unknown) Draft (units unknown) (unknown) (unknown) (no date) (unknown) (unknown) Duloxetine 60 mg (un its unknown) (unknown) (unknown) (no date) (unknown) (unknown) FINDINGS:? (units unknown) (unknown) (unknown) (no date) (unknown) (unknown) Follow Up ED x 4 [2 visits at , 2 at [place]] (units unknown) (unknown) (unknown) (no date) (unknown) (unknown) HPI (units unknown) (unknown) (unknown) (no date) (unknown) (unknown) He went to the [facility] as well as an outside hospital twice. (units unknown) (unknown) (unknown) (no date) (unknown) (unknown) IMPRESSION:? (units unknown) (unknown) (unknown) (no date) (unknown) (unknown) INDICATIONS:? New lower extremity weakness, pain exacerbation after twist (units unknown) (unknown) (unknown) (no date) (unknown) (unknown) INDICATIONS:? hx of multiple back surgeries with pain after fall (units unknown) (unknown) (unknown) (no date) (unknown) (unknown) Image quality: ? Excellent.? (units unknown) (unknown) (unknown) (no date) (unknown) (unknown) Injections: (units unknown) (unknown) (unknown) (no date) (unknown) (unknown) Intake Clinical Staf f (units unknown) (unknown) (unknown) (no date) (unknown) (unknown) Intake Note: (units unknown) (unknown) (unknown) (no date) (unknown) (unknown) Intake perform ed by: Paola Whitfield (units unknown) (unknown) (unknown) (no date) (unknown) (unknown) Intake (units unknown) (unknown) (unknown) (no date) (unknown) (unknown) Interval History: (u nits unknown) (unknown) (unknown) (no date) (unknown) (unknown) Intervention:?Date:?Outcome:?? ? (units unknown) (unknown) (unknown) (no date) (unknown) (unknown) [facility] l, MR, MR LUMBAR SPINE WO CON, 03/09/2022, 20:09. (units unknown) (unknown) (unknown) (no date) (unknown) (unknown) JUSTIFICATION OF MEDICAL NECESSITY (units unknown) (unknown) (unknown) (no date) (unknown) (unknown) L-spine/T-spin e/C-spin e MRI ordered to better delineate the anatomy and help (units unknown) (unknown) (unknown) (no date) (unknown) (unknown) L1-L2:? Disc s pace is preserved.? No central or foraminal stenosis (units unknown) (unknown) (unknown) (no date) (unknown) (unknown) L2-L3:? Disc s pace narrowing and circumferential disc bulge results in moderate (units unknown) (unknown) (unknown) (no date) (unknown) (unknown) L3, L4 and L5 decompressive laminectomies with interbody fusion and posterior (units unknown) (unknown) (unknown) (no date) (unknown) (unknown) L3-L4:? Discec madonna and fusion with posterior decompression.? No central (units unknown) (unknown) (unknown) (no date) (unknown) (unknown) L4-L5:? Discec madonna and fusion with posterior decompression.? No central (units unknown) (unknown) (unknown) (no date) (unknown) (unknown) L5-S1:? Discec madonna and fusion with posterior decompression.? No central (units unknown) (unknown) (unknown) (no date) (unknown) (unknown) Lidoderm patch (unit s unknown) (unknown) (unknown) (no date) (unknown) (unknown) Loc: PAIN (units unknown) (unknown) (unknown) (no date) (unknown) (unknown) Lower lumbar s pine interbody fusion, posterior decompression and (units unknown) (unknown) (unknown) (no date) (unknown) (unknown) Lumbar radiculopathy (units unknown) (unknown) (unknown) (no date) (unknown) (unknown) Lumbar spine f ixation appears stable. (units unknown) (unknown) (unknown) (no date) (unknown) (unknown) Lyrica 200 mg b.i.d. (units unknown) (unknown) (unknown) (no date) (unknown) (unknown) MRI 06/28/22 (units unknown) (unknown) (unknown) (no date) (unknown) (unknown) MSK: System re viewed and no additional complaints, except as documented. (units unknown) (unknown) (unknown) (no date) (unknown) (unknown) Medical Histor y (units unknown) (unknown) (unknown) (no date) (unknown) (unknown) Medications (units unknown) (unknown) (unknown) (no date) (unknown) (unknown) Medications: (units unknown) (unknown) (unknown) (no date) (unknown) (unknown) Moderate left and right foraminal stenosis (units unknown) (unknown) (unknown) (no date) (unknown) (unknown) Neuro: System reviewed and no additional complaints, except as documented. (units unknown) (unknown) (unknown) (no date) (unknown) (unknown) No suspicious bony lesions.? (units unknown) (unknown) (unknown) (no date) (unknown) (unknown) Noncontrast sa gittal T1 spin echo and T2 fast echo, sagittal STIR, and T2 fast (units unknown) (unknown) (unknown) (no date) (unknown) (unknown) Not indicated at this time. [] (units unknown) (unknown) (unknown) (no date) (unknown) (unknown) Numbness/Tingling: ( units unknown) (unknown) (unknown) (no date) (unknown) (unknown) [employer].? H e requested a refill of Lidoderm patches we will also start (units unknown) (unknown) (unknown) (no date) (unknown) (unknown) Objective Data (unit s unknown) (unknown) (unknown) (no date) (unknown) (unknown) Objective Data: (uni ts unknown) (unknown) (unknown) (no date) (unknown) (unknown) Onset/Context of parish n: (units unknown) (unknown) (unknown) (no date) (unknown) (unknown) Onset: insidio us, exacerbated by recent fall (units unknown) (unknown) (unknown) (no date) (unknown) (unknown) Other: acupuncture ( units unknown) (unknown) (unknown) (no date) (unknown) (unknown) PFSH (units unknown) (unknown) (unknown) (no date) (unknown) (unknown) PROCEDURE:? MR LUMBAR SPINE WO CON (units unknown) (unknown) (unknown) (no date) (unknown) (unknown) PROCEDURE:? XR LUMBAR SPINE 2-3V (units unknown) (unknown) (unknown) (no date) (unknown) (unknown) PT: Last PT wa s about 2 months ago in [place] (units unknown) (unknown) (unknown) (no date) (unknown) (unknown) Pain Visit (units unknown) (unknown) (unknown) (no date) (unknown) (unknown) Pain location/Radiation: Back - 'in my back'; Bilateral legs; squeezing of (units unknown) (unknown) (unknown) (no date) (unknown) (unknown) Pain ratin /10 today, 10/10 at worst (units unknown) (unknown) (unknown) (no date) (unknown) (unknown) Paraspinous So ft Tissues:? No paravertebral masses.? (units unknown) (unknown) (unknown) (no date) (unknown) (unknown) Past medical, surgical, social, and family history is unchanged from prior (units unknown) (unknown) (unknown) (no date) (unknown) (unknown) Patient was dawson mark seen here on 06/22/2022 at which time he had bilateral S1 (units unknown) (unknown) (unknown) (no date) (unknown) (unknown) Patient will r eturn for []. Risks and benefits were discussed. (units unknown) (unknown) (unknown) (no date) (unknown) (unknown) Patient's pain has been present for >6 weeks and is an average of >6/10 on 0-10 (units unknown) (unknown) (unknown) (no date) (unknown) (unknown) Patient: Kishor Carrasquillo MR#: [id number] (units unknown) (unknown) (unknown) (no date) (unknown) (unknown) Pertinent medi cations include: (units unknown) (unknown) (unknown) (no date) (unknown) (unknown) Plan (units unknown) (unknown) (unknown) (no date) (unknown) (unknown) Plan/Recommendations : (units unknown) (unknown) (unknown) (no date) (unknown) (unknown) Prescriptions Written: [] (units unknown) (unknown) (unknown) (no date) (unknown) (unknown) Previous Visit Assessment: Kelsey is a 47-year-old male presenting for further (units unknown) (unknown) (unknown) (no date) (unknown) (unknown) Previous pain treatments included: (units unknown) (unknown) (unknown) (no date) (unknown) (unknown) Quality and ti gerri of pain: (units unknown) (unknown) (unknown) (no date) (unknown) (unknown) ROS Narrative (units unknown) (unknown) (unknown) (no date) (unknown) (unknown) ROS Narrative: (unit s unknown) (unknown) (unknown) (no date) (unknown) (unknown) ROS (units unknown) (unknown) (unknown) (no date) (unknown) (unknown) Reason For Visit (un its unknown) (unknown) (unknown) (no date) (unknown) (unknown) Red flag symptoms: ( units unknown) (unknown) (unknown) (no date) (unknown) (unknown) Relieving fact ors include: changing positions, laying down (units unknown) (unknown) (unknown) (no date) (unknown) (unknown) Robaxin 750 mg (unit s unknown) (unknown) (unknown) (no date) (unknown) (unknown) S/P S1 TF MARI (units unknown) (unknown) (unknown) (no date) (unknown) (unknown) S1 appears (units unknown) (unknown) (unknown) (no date) (unknown) (unknown) [place] anesthe [place]ina: denies (units unknown) (unknown) (unknown) (no date) (unknown) (unknown) Signed By: (units unknown) (unknown) (unknown) (no date) (unknown) (unknown) Smoking Status : Never smoker (units unknown) (unknown) (unknown) (no date) (unknown) (unknown) Soft tissues:? Overlying bowel gas pattern is normal.? No suspicious soft tissue (units unknown) (unknown) (unknown) (no date) (unknown) (unknown) Spinal Cord:? Conus medullaris terminates at the L1 level.? Visualized cord (units unknown) (unknown) (unknown) (no date) (unknown) (unknown) Standing: incr eased leg and back pain (units unknown) (unknown) (unknown) (no date) (unknown) (unknown) Stat lumbar MR I was done on 06/28/2022 which did not show any acute (units unknown) (unknown) (unknown) (no date) (unknown) (unknown) Surgery: Patie nt is s/p L3-S1 posterior instrumented fusion in 2012 (units unknown) (unknown) (unknown) (no date) (unknown) (unknown) T12 compressio n fracture is unchanged. (units unknown) (unknown) (unknown) (no date) (unknown) (unknown) T12-L1:? Disc space is preserved.? No central or foraminal stenosis. (units unknown) (unknown) (unknown) (no date) (unknown) (unknown) TECHNIQUE:? 2 views of the lumbar spine were acquired.? (units unknown) (unknown) (unknown) (no date) (unknown) (unknown) TECHNIQUE:? (units unknown) (unknown) (unknown) (no date) (unknown) (unknown) [facility] (units unknown) (unknown) (unknown) (no date) (unknown) (unknown) This note may have been all or partially generated using voice recognition (units unknown) (unknown) (unknown) (no date) (unknown) (unknown) Tobacco + Subs tance Use (units unknown) (unknown) (unknown) (no date) (unknown) (unknown) Tobacco Status (unit s unknown) (unknown) (unknown) (no date) (unknown) (unknown) Today I have r eviewed available medical information in the patient's medical (units unknown) (unknown) (unknown) (no date) (unknown) (unknown) Visit Reasons: Follow Up ED (units unknown) (unknown) (unknown) (no date) (unknown) (unknown) Walking: incre ased leg and back pain (units unknown) (unknown) (unknown) (no date) (unknown) (unknown) [place] Prescription Monitoring Program (RN LABOR AND DELIVERY) was reviewed. (units unknown) (unknown) (unknown) (no date) (unknown) (unknown) We reviewed et iology, predisposing factor(s), natural course, imaging results as (units unknown) (unknown) (unknown) (no date) (unknown) (unknown) Weakness: denies (un its unknown) (unknown) (unknown) (no date) (unknown) (unknown) abnormalities. He saw his neurosurgeon on 06/30/22. (units unknown) (unknown) (unknown) (no date) (unknown) (unknown) benefits of va rious treatment options were discussed with the patient in great (units unknown) (unknown) (unknown) (no date) (unknown) (unknown) bilateral fora solo stenosis (units unknown) (unknown) (unknown) (no date) (unknown) (unknown) bilateral test icles R>L (units unknown) (unknown) (unknown) (no date) (unknown) (unknown) bowel/bladder dysfunction, and perineal numbness were discussed. The patient was (units unknown) (unknown) (unknown) (no date) (unknown) (unknown) calcifications.? (un its unknown) (unknown) (unknown) (no date) (unknown) (unknown) cannot tolerat e physical therapy at the current time due to the intensity of the (units unknown) (unknown) (unknown) (no date) (unknown) (unknown) central stenosis. (u nits unknown) (unknown) (unknown) (no date) (unknown) (unknown) central stenos is.? Hypertrophic facet joints contribute to moderate bilateral (units unknown) (unknown) (unknown) (no date) (unknown) (unknown) change from (units unknown) (unknown) (unknown) (no date) (unknown) (unknown) demonstrates (units unknown) (unknown) (unknown) (no date) (unknown) (unknown) detail. (units unknown) (unknown) (unknown) (no date) (unknown) (unknown) duloxetine 60 mg capsule,delayed release 60 mg PO DAILY 06/14/22 [History (units unknown) (unknown) (unknown) (no date) (unknown) (unknown) evaluation of chronic low back pain with radiation to bilateral lower (units unknown) (unknown) (unknown) (no date) (unknown) (unknown) extremities.? He has a complicated history of low back pain including multiple (units unknown) (unknown) (unknown) (no date) (unknown) (unknown) foraminal (units unknown) (unknown) (unknown) (no date) (unknown) (unknown) from prior exam (uni ts unknown) (unknown) (unknown) (no date) (unknown) (unknown) have occurred. If there are any questions, please contact the Medical Records (units unknown) (unknown) (unknown) (no date) (unknown) (unknown) improved sleep , improved mobility, etc. (units unknown) (unknown) (unknown) (no date) (unknown) (unknown) in PT. [] (units unknown) (unknown) (unknown) (no date) (unknown) (unknown) instructed to report to the Emergency department, if these symptoms occur. (units unknown) (unknown) (unknown) (no date) (unknown) (unknown) instructed to stop if any side effects. [] (units unknown) (unknown) (unknown) (no date) (unknown) (unknown) instrumentatio n, stable (units unknown) (unknown) (unknown) (no date) (unknown) (unknown) interested in starting physical therapy and a referral was placed to her auto in (units unknown) (unknown) (unknown) (no date) (unknown) (unknown) intravenous dr ug use, sustained glucocorticoid use, osteoporosis, or a focal (units unknown) (unknown) (unknown) (no date) (unknown) (unknown) lidocaine 5 % topical patch (Lidoderm) 1 patch topical DAILY #30 ea 06/14/22 [Rx (units unknown) (unknown) (unknown) (no date) (unknown) (unknown) local anesthet ic. During that time patient able to participate in ADLs, had (units unknown) (unknown) (unknown) (no date) (unknown) (unknown) lumbar spine operations as well as multiple pain injections.? He notes good (units unknown) (unknown) (unknown) (no date) (unknown) (unknown) may be performed.? ( units unknown) (unknown) (unknown) (no date) (unknown) (unknown) may occur. Occ asional wrong-word or 'sound-alike' substitutions may have (units unknown) (unknown) (unknown) (no date) (unknown) (unknown) meds. [] (units unknown) (unknown) (unknown) (no date) (unknown) (unknown) methocarbamol 750 mg tablet 750 mg PO Q8H PRN muscle pain #30 tabs 06/07/22 [Rx (units unknown) (unknown) (unknown) (no date) (unknown) (unknown) milk Allergy ( Mild, Verified 07/03/22 08:21) (units unknown) (unknown) (unknown) (no date) (unknown) (unknown) neurological d eficit with progressive or disabling symptoms. (units unknown) (unknown) (unknown) (no date) (unknown) (unknown) normal signal and size.? (units unknown) (unknown) (unknown) (no date) (unknown) (unknown) occurred due t o the inherent limitations of voice recognition software. Please (units unknown) (unknown) (unknown) (no date) (unknown) (unknown) omeprazole 20 mg capsule,delayed release 20 mg PO DAILY 06/14/22 [History (units unknown) (unknown) (unknown) (no date) (unknown) (unknown) or immunosuppr essive therapy, previous or current cancer diagnosis, history of (units unknown) (unknown) (unknown) (no date) (unknown) (unknown) oxycodone 5 mg tablet 5 mg PO Q6H PRN pain #10 tabs 06/29/22 [Rx Confirmed (units unknown) (unknown) (unknown) (no date) (unknown) (unknown) oxycodone 5 mg tablet 5 mg PO Q6H PRN pain #14 tabs 06/29/22 [Rx Confirmed (units unknown) (unknown) (unknown) (no date) (unknown) (unknown) pain resolved within he complained of left lower leg as well as foot numbness. (units unknown) (unknown) (unknown) (no date) (unknown) (unknown) pain. [] (units unknown) (unknown) (unknown) (no date) (unknown) (unknown) pregabalin 200 mg capsule 200 mg PO TID 06/14/22 [History Confirmed 07/03/22] (units unknown) (unknown) (unknown) (no date) (unknown) (unknown) read the note carefully and recognize, using context, where these substitutions (units unknown) (unknown) (unknown) (no date) (unknown) (unknown) record, includ ing relevant provider notes, laboratory work, and imaging. (units unknown) (unknown) (unknown) (no date) (unknown) (unknown) relief after S 1 transforaminal MARI in the past.? He would likely benefit from a (units unknown) (unknown) (unknown) (no date) (unknown) (unknown) repeat bilater al S1 transforaminal epidural steroid injection.? He is also (units unknown) (unknown) (unknown) (no date) (unknown) (unknown) jules and (units unknown) (unknown) (unknown) (no date) (unknown) (unknown) scale and/or p ain interferes with ADLs. 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 (units unknown) (unknown) (unknown) (no date) (unknown) (unknown) severe (units unknown) (unknown) (unknown) (no date) (unknown) (unknown) software. Alth ough every effort is made to edit content, manager inside errors (units unknown) (unknown) (unknown) (no date) (unknown) (unknown) spin echo (units unknown) (unknown) (unknown) (no date) (unknown) (unknown) stable.? 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 T12 compression fracture, (units unknown) (unknown) (unknown) (no date) (unknown) (unknown) stenosis (units unknown) (unknown) (unknown) (no date) (unknown) (unknown) stenosis.? Mild (uni ts unknown) (unknown) (unknown) (no date) (unknown) (unknown) stenosis.? (units unknown) (unknown) (unknown) (no date) (unknown) (unknown) stimulator for chronic low back pain.' (units unknown) (unknown) (unknown) (no date) (unknown) (unknown) the prior exam .? No retropulsed fracture fragment. (units unknown) (unknown) (unknown) (no date) (unknown) (unknown) therapeutic in jections and surgery. The risks, consequences, alternatives and (units unknown) (unknown) (unknown) (no date) (unknown) (unknown) therapy. ?A re ferral was provided for the patient. [] (units unknown) (unknown) (unknown) (no date) (unknown) (unknown) through the [facility] spine.? In cases with scoliosis, additional coronal T2 fast (units unknown) (unknown) (unknown) (no date) (unknown) (unknown) to severe (units unknown) (unknown) (unknown) (no date) (unknown) (unknown) tramadol 50 mg tablet 50 mg PO TID PRN pain #30 tabs 06/14/22 [Rx Confirmed (units unknown) (unknown) (unknown) (no date) (unknown) (unknown) tramadol for short-term use.? He is currently being evaluated for spinal cord (units unknown) (unknown) (unknown) (no date) (unknown) (unknown) transforaminal MARI. After the injection he noted increased low back pain. This (units unknown) (unknown) (unknown) (no date) (unknown) (unknown) unchanged.? (units unknown) (unknown) (unknown) (no date) (unknown) (unknown) visit. (units unknown) (unknown) (unknown) (no date) (unknown) (unknown) well as treatm ent options including medications, physical therapy/exercise, (units unknown) (unknown) (unknown) (no date) (unknown) (unknown) with future tr eatment planning. [] (units unknown) (unknown) Result panel 45 (unknown) (no date) (unknown) (unknown) (no value) (units unknown) (unknown) (unknown) (no date) (unknown) (unknown) - Activity: Co ntinue activity as tolerated. [] (units unknown) (unknown) (unknown) (no date) (unknown) (unknown) - Chiropractor , acupuncture[] (units unknown) (unknown) (unknown) (no date) (unknown) (unknown) - Continues cl inician directed home exercise program including exercises learned (units unknown) (unknown) (unknown) (no date) (unknown) (unknown) - Education: C auda equina and associated symptoms, including motor weakness, (units unknown) (unknown) (unknown) (no date) (unknown) (unknown) - Follow-up: [] (uni ts unknown) (unknown) (unknown) (no date) (unknown) (unknown) - I discussed risks, benefits and side effects. Additionally, patient was (units unknown) (unknown) (unknown) (no date) (unknown) (unknown) - Imaging: No new imaging indicated at this time. [] (units unknown) (unknown) (unknown) (no date) (unknown) (unknown) - Interventional/Surgica l procedures: None indicated at this time. [] (units unknown) (unknown) (unknown) (no date) (unknown) (unknown) - Medications: No new prescription at this time. Patient will continue current (units unknown) (unknown) (unknown) (no date) (unknown) (unknown) - Medications: acetaminophen, NSAIDS, neuropathics, muscle relaxants [] (units unknown) (unknown) (unknown) (no date) (unknown) (unknown) - Physical The rapy: Completed 6 week course in the last 6 months OR Patient (units unknown) (unknown) (unknown) (no date) (unknown) (unknown) - Physical therapy/modalities/DME : Patient will likely benefit from physical (units unknown) (unknown) (unknown) (no date) (unknown) (unknown) - Prescription provided and uptitration instructions given if necessary. [] (units unknown) (unknown) (unknown) (no date) (unknown) (unknown) - Previous [] on [] provided []% relief of pain for the expected duration of the (units unknown) (unknown) (unknown) (no date) (unknown) (unknown) - Referrals: N one indicated at this time. [] (units unknown) (unknown) (unknown) (no date) (unknown) (unknown) -to-moderate b ilateral foraminal stenosis (units unknown) (unknown) (unknown) (no date) (unknown) (unknown) 06/29/22 (units unknown) (unknown) (unknown) (no date) (unknown) (unknown) 07/03/22] (units unknown) (unknown) (unknown) (no date) (unknown) (unknown) 05/22/2021, 2:31.? (u nits unknown) (unknown) (unknown) (no date) (unknown) (unknown) 990 (units unknown) (unknown) (unknown) (no date) (unknown) (unknown) ? (units unknown) (unknown) (unknown) (no date) (unknown) (unknown) ? Acetaminophen (units unknown) (unknown) (unknown) (no date) (unknown) (unknown) ? Antidepressants (units unknown) (unknown) (unknown) (no date) (unknown) (unknown) ? Antiepileptics (units unknown) (unknown) (unknown) (no date) (unknown) (unknown) ? Mu scle Relaxants (units unknown) (unknown) (unknown) (no date) (unknown) (unknown) ? NSAIDs ( units unknown) (unknown) (unknown) (no date) (unknown) (unknown) ? Opioids (units unknown) (unknown) (unknown) (no date) (unknown) (unknown) ? Steroids (units unknown) (unknown) (unknown) (no date) (unknown) (unknown) ? Topicals (units unknown) (unknown) (unknown) (no date) (unknown) (unknown) Accompanied by : PARTNER: PADMA (units unknown) (unknown) (unknown) (no date) (unknown) (unknown) Age/Sex: 47 / M Date of Service: (units unknown) (unknown) (unknown) (no date) (unknown) (unknown) Aggravating fa ctors include: multiple body positions (units unknown) (unknown) (unknown) (no date) (unknown) (unknown) Alignment and Curvature:? There is normal bony alignment.? (units unknown) (unknown) (unknown) (no date) (unknown) (unknown) All other syst ems reviewed and are unremarkable except as noted in HPI. (units unknown) (unknown) (unknown) (no date) (unknown) (unknown) Allergies (units unknown) (unknown) (unknown) (no date) (unknown) (unknown) [place] [address] (units unknown) (unknown) (unknown) (no date) (unknown) (unknown) Approved by: Vale Aden M.D. on 06/07/2022 at 14:37? (units unknown) (unknown) (unknown) (no date) (unknown) (unknown) Approved by: Fercho Khan M.D. on 06/04/2022 at 21:57 ? (units unknown) (unknown) (unknown) (no date) (unknown) (unknown) Assessment + Plan (u nits unknown) (unknown) (unknown) (no date) (unknown) (unknown) Assessment: (units unknown) (unknown) (unknown) (no date) (unknown) (unknown) Attending Dr: Dhiraj Daigle MD (units unknown) (unknown) (unknown) (no date) (unknown) (unknown) B/L S1 TFESI ( Dr. Blair) 05/26/2021 ? Improved pain for 1 month (units unknown) (unknown) (unknown) (no date) (unknown) (unknown) Bone Marrow:? Wedge-shaped compression fracture T12 without marrow edema or (units unknown) (unknown) (unknown) (no date) (unknown) (unknown) Bones:? 5 duw-tss-mbjhtcd vertebrae are present.? Pedicle screw fixation at L3 (units unknown) (unknown) (unknown) (no date) (unknown) (unknown) Bowel and blad kael: No loss of control (units unknown) (unknown) (unknown) (no date) (unknown) (unknown) COMPARISON:? I [facility], MR, MR LUMBAR SPINE WO CON, 03/09/2022, 20:09. (units unknown) (unknown) (unknown) (no date) (unknown) (unknown) COMPARISON:? S Located within [facility], CR, XR LUMBAR SPINE 2 OR 3 VIEWS, (units unknown) (unknown) (unknown) (no date) (unknown) (unknown) Caudal ? No improvement (units unknown) (unknown) (unknown) (no date) (unknown) (unknown) Chart review: (units unknown) (unknown) (unknown) (no date) (unknown) (unknown) Chief Complaint (uni ts unknown) (unknown) (unknown) (no date) (unknown) (unknown) Chief Complain t: Follow-up (units unknown) (unknown) (unknown) (no date) (unknown) (unknown) Chronic T12 compression fracture without retropulsed fracture fragment (units unknown) (unknown) (unknown) (no date) (unknown) (unknown) Confirmed 07/03/22] (units unknown) (unknown) (unknown) (no date) (unknown) (unknown) Conservative management includes: (units unknown) (unknown) (unknown) (no date) (unknown) (unknown) Continue [facility] physical therapy. [] (units unknown) (unknown) (unknown) (no date) (unknown) (unknown) Continue home exercise program. 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 (units unknown) (unknown) (unknown) (no date) (unknown) (unknown) Details: (units unknown) (unknown) (unknown) (no date) (unknown) (unknown) Dictated by: Fercho Khan M.D. on 06/04/2022 at 21:55 ? ? (units unknown) (unknown) (unknown) (no date) (unknown) (unknown) Documented By: Dhiraj Daigle MD 07/03/22 0803 (units unknown) (unknown) (unknown) (no date) (unknown) (unknown) Draft (units unknown) (unknown) (unknown) (no date) (unknown) (unknown) Duloxetine 60 mg (un its unknown) (unknown) (unknown) (no date) (unknown) (unknown) FINDINGS:? (units unknown) (unknown) (unknown) (no date) (unknown) (unknown) Follow Up ED x 4 [2 visits at , 2 at [place]] (units unknown) (unknown) (unknown) (no date) (unknown) (unknown) HPI (units unknown) (unknown) (unknown) (no date) (unknown) (unknown) He went to the ED at [facility] twice as well as an outside hospital twice. (units unknown) (unknown) (unknown) (no date) (unknown) (unknown) IMPRESSION:? (units unknown) (unknown) (unknown) (no date) (unknown) (unknown) INDICATIONS:? New lower extremity weakness, pain exacerbation after twist (units unknown) (unknown) (unknown) (no date) (unknown) (unknown) INDICATIONS:? hx of multiple back surgeries with pain after fall (units unknown) (unknown) (unknown) (no date) (unknown) (unknown) Image quality: ? Excellent.? (units unknown) (unknown) (unknown) (no date) (unknown) (unknown) Injections: (units unknown) (unknown) (unknown) (no date) (unknown) (unknown) Intake Clinical Staf f (units unknown) (unknown) (unknown) (no date) (unknown) (unknown) Intake Note: (units unknown) (unknown) (unknown) (no date) (unknown) (unknown) Intake perform ed by: Paola Whitfield (units unknown) (unknown) (unknown) (no date) (unknown) (unknown) Intake (units unknown) (unknown) (unknown) (no date) (unknown) (unknown) Interval History: (u nits unknown) (unknown) (unknown) (no date) (unknown) (unknown) Intervention:?Date:?Outcome:?? ? (units unknown) (unknown) (unknown) (no date) (unknown) (unknown) Alyce Otero l, MR, MR LUMBAR SPINE WO CON, 03/09/2022, 20:09. (units unknown) (unknown) (unknown) (no date) (unknown) (unknown) JUSTIFICATION OF MEDICAL NECESSITY (units unknown) (unknown) (unknown) (no date) (unknown) (unknown) L-spine/T-spin e/C-spin e MRI ordered to better delineate the anatomy and help (units unknown) (unknown) (unknown) (no date) (unknown) (unknown) L1-L2:? Disc s pace is preserved.? No central or foraminal stenosis (units unknown) (unknown) (unknown) (no date) (unknown) (unknown) L2-L3:? Disc s pace narrowing and circumferential disc bulge results in moderate (units unknown) (unknown) (unknown) (no date) (unknown) (unknown) L3, L4 and L5 decompressive laminectomies with interbody fusion and posterior (units unknown) (unknown) (unknown) (no date) (unknown) (unknown) L3-L4:? Discec madonna and fusion with posterior decompression.? No central (units unknown) (unknown) (unknown) (no date) (unknown) (unknown) L4-L5:? Discec madonna and fusion with posterior decompression.? No central (units unknown) (unknown) (unknown) (no date) (unknown) (unknown) L5-S1:? Discec madonna and fusion with posterior decompression.? No central (units unknown) (unknown) (unknown) (no date) (unknown) (unknown) Lidoderm patch (unit s unknown) (unknown) (unknown) (no date) (unknown) (unknown) Loc: PAIN (units unknown) (unknown) (unknown) (no date) (unknown) (unknown) Lower lumbar s pine interbody fusion, posterior decompression and (units unknown) (unknown) (unknown) (no date) (unknown) (unknown) Lumbar radiculopathy (units unknown) (unknown) (unknown) (no date) (unknown) (unknown) Lumbar spine f ixation appears stable. (units unknown) (unknown) (unknown) (no date) (unknown) (unknown) Lyrica 200 mg b.i.d. (units unknown) (unknown) (unknown) (no date) (unknown) (unknown) MRI 06/28/22 (units unknown) (unknown) (unknown) (no date) (unknown) (unknown) MSK: System re viewed and no additional complaints, except as documented. (units unknown) (unknown) (unknown) (no date) (unknown) (unknown) Medical Histor y (units unknown) (unknown) (unknown) (no date) (unknown) (unknown) Medications (units unknown) (unknown) (unknown) (no date) (unknown) (unknown) Medications: (units unknown) (unknown) (unknown) (no date) (unknown) (unknown) Moderate left and right foraminal stenosis (units unknown) (unknown) (unknown) (no date) (unknown) (unknown) Neuro: System reviewed and no additional complaints, except as documented. (units unknown) (unknown) (unknown) (no date) (unknown) (unknown) No suspicious bony lesions.? (units unknown) (unknown) (unknown) (no date) (unknown) (unknown) Noncontrast sa gittal T1 spin echo and T2 fast echo, sagittal STIR, and T2 fast (units unknown) (unknown) (unknown) (no date) (unknown) (unknown) Not indicated at this time. [] (units unknown) (unknown) (unknown) (no date) (unknown) (unknown) Numbness/Tingling: ( units unknown) (unknown) (unknown) (no date) (unknown) (unknown) [place].? H e requested a refill of Lidoderm patches we will also start (units unknown) (unknown) (unknown) (no date) (unknown) (unknown) Objective Data (unit s unknown) (unknown) (unknown) (no date) (unknown) (unknown) Objective Data: (uni ts unknown) (unknown) (unknown) (no date) (unknown) (unknown) Onset/Context of parish n: (units unknown) (unknown) (unknown) (no date) (unknown) (unknown) Onset: insidio us, exacerbated by recent fall (units unknown) (unknown) (unknown) (no date) (unknown) (unknown) Other: acupuncture ( units unknown) (unknown) (unknown) (no date) (unknown) (unknown) PFSH (units unknown) (unknown) (unknown) (no date) (unknown) (unknown) PROCEDURE:? MR LUMBAR SPINE WO CON (units unknown) (unknown) (unknown) (no date) (unknown) (unknown) PROCEDURE:? XR LUMBAR SPINE 2-3V (units unknown) (unknown) (unknown) (no date) (unknown) (unknown) PT: Last PT wa s about 2 months ago in [place] (units unknown) (unknown) (unknown) (no date) (unknown) (unknown) Pain Visit (units unknown) (unknown) (unknown) (no date) (unknown) (unknown) Pain location/Radiation: Back - 'in my back'; Bilateral legs; squeezing of (units unknown) (unknown) (unknown) (no date) (unknown) (unknown) Pain ratin /10 today, 10/10 at worst (units unknown) (unknown) (unknown) (no date) (unknown) (unknown) Paraspinous So ft Tissues:? No paravertebral masses.? (units unknown) (unknown) (unknown) (no date) (unknown) (unknown) Past medical, surgical, social, and family history is unchanged from prior (units unknown) (unknown) (unknown) (no date) (unknown) (unknown) Patient was la st seen here on 06/22/2022 at which time he had bilateral S1 (units unknown) (unknown) (unknown) (no date) (unknown) (unknown) Patient will r eturn for []. Risks and benefits were discussed. (units unknown) (unknown) (unknown) (no date) (unknown) (unknown) Patient's pain has been present for >6 weeks and is an average of >6/10 on 0-10 (units unknown) (unknown) (unknown) (no date) (unknown) (unknown) Patient: Kishor Carrasquillo MR#: [id number] (units unknown) (unknown) (unknown) (no date) (unknown) (unknown) Pertinent medi cations include: (units unknown) (unknown) (unknown) (no date) (unknown) (unknown) Plan (units unknown) (unknown) (unknown) (no date) (unknown) (unknown) Plan/Recommendations : (units unknown) (unknown) (unknown) (no date) (unknown) (unknown) Prescriptions Written: [] (units unknown) (unknown) (unknown) (no date) (unknown) (unknown) Previous Visit Assessment: Kelsey is a 47-year-old male presenting for further (units unknown) (unknown) (unknown) (no date) (unknown) (unknown) Previous pain treatments included: (units unknown) (unknown) (unknown) (no date) (unknown) (unknown) Quality and ti gerri of pain: (units unknown) (unknown) (unknown) (no date) (unknown) (unknown) ROS Narrative (units unknown) (unknown) (unknown) (no date) (unknown) (unknown) ROS Narrative: (unit s unknown) (unknown) (unknown) (no date) (unknown) (unknown) ROS (units unknown) (unknown) (unknown) (no date) (unknown) (unknown) Reason For Visit (un its unknown) (unknown) (unknown) (no date) (unknown) (unknown) Red flag symptoms: ( units unknown) (unknown) (unknown) (no date) (unknown) (unknown) Relieving fact ors include: changing positions, laying down (units unknown) (unknown) (unknown) (no date) (unknown) (unknown) Robaxin 750 mg (unit s unknown) (unknown) (unknown) (no date) (unknown) (unknown) S/P S1 TF MARI (units unknown) (unknown) (unknown) (no date) (unknown) (unknown) S1 appears (units unknown) (unknown) (unknown) (no date) (unknown) (unknown) Saddle anesthe marina: denies (units unknown) (unknown) (unknown) (no date) (unknown) (unknown) Signed By: (units unknown) (unknown) (unknown) (no date) (unknown) (unknown) Smoking Status : Never smoker (units unknown) (unknown) (unknown) (no date) (unknown) (unknown) Soft tissues:? Overlying bowel gas pattern is normal.? No suspicious soft tissue (units unknown) (unknown) (unknown) (no date) (unknown) (unknown) Spinal Cord:? Conus medullaris terminates at the L1 level.? Visualized cord (units unknown) (unknown) (unknown) (no date) (unknown) (unknown) Standing: incr eased leg and back pain (units unknown) (unknown) (unknown) (no date) (unknown) (unknown) Stat lumbar MR I was done on 06/28/2022 which did not show any acute (units unknown) (unknown) (unknown) (no date) (unknown) (unknown) Surgery: Annmarie nt is s/p L3-S1 posterior instrumented fusion in 2012 (units unknown) (unknown) (unknown) (no date) (unknown) (unknown) T12 compressio n fracture is unchanged. (units unknown) (unknown) (unknown) (no date) (unknown) (unknown) T12-L1:? Disc space is preserved.? No central or foraminal stenosis. (units unknown) (unknown) (unknown) (no date) (unknown) (unknown) TECHNIQUE:? 2 views of the lumbar spine were acquired.? (units unknown) (unknown) (unknown) (no date) (unknown) (unknown) TECHNIQUE:? (units unknown) (unknown) (unknown) (no date) (unknown) (unknown) [facility] (units unknown) (unknown) (unknown) (no date) (unknown) (unknown) This note may have been all or partially generated using voice recognition (units unknown) (unknown) (unknown) (no date) (unknown) (unknown) Tobacco + Subs tance Use (units unknown) (unknown) (unknown) (no date) (unknown) (unknown) Tobacco Status (unit s unknown) (unknown) (unknown) (no date) (unknown) (unknown) Today I have r eviewed available medical information in the patient's medical (units unknown) (unknown) (unknown) (no date) (unknown) (unknown) Visit Reasons: Follow Up ED (units unknown) (unknown) (unknown) (no date) (unknown) (unknown) Walking: incre ased leg and back pain (units unknown) (unknown) (unknown) (no date) (unknown) (unknown) [place] Prescription Monitoring Program (RN LABOR AND DELIVERY) was reviewed. (units unknown) (unknown) (unknown) (no date) (unknown) (unknown) We reviewed et iology, predisposing factor(s), natural course, imaging results as (units unknown) (unknown) (unknown) (no date) (unknown) (unknown) Weakness: denies (un its unknown) (unknown) (unknown) (no date) (unknown) (unknown) abnormalities. He saw his neurosurgeon on 06/30/22. (units unknown) (unknown) (unknown) (no date) (unknown) (unknown) benefits of va rious treatment options were discussed with the patient in great (units unknown) (unknown) (unknown) (no date) (unknown) (unknown) bilateral fora solo stenosis (units unknown) (unknown) (unknown) (no date) (unknown) (unknown) bilateral test icles R>L (units unknown) (unknown) (unknown) (no date) (unknown) (unknown) bowel/bladder dysfunction, and perineal numbness were discussed. The patient was (units unknown) (unknown) (unknown) (no date) (unknown) (unknown) calcifications.? (un its unknown) (unknown) (unknown) (no date) (unknown) (unknown) cannot tolerat e physical therapy at the current time due to the intensity of the (units unknown) (unknown) (unknown) (no date) (unknown) (unknown) central stenosis. (u nits unknown) (unknown) (unknown) (no date) (unknown) (unknown) central stenos is.? Hypertrophic facet joints contribute to moderate bilateral (units unknown) (unknown) (unknown) (no date) (unknown) (unknown) change from (units unknown) (unknown) (unknown) (no date) (unknown) (unknown) demonstrates (units unknown) (unknown) (unknown) (no date) (unknown) (unknown) detail. (units unknown) (unknown) (unknown) (no date) (unknown) (unknown) duloxetine 60 mg capsule,delayed release 60 mg PO DAILY 06/14/22 [History (units unknown) (unknown) (unknown) (no date) (unknown) (unknown) evaluation of chronic low back pain with radiation to bilateral lower (units unknown) (unknown) (unknown) (no date) (unknown) (unknown) extremities.? He has a complicated history of low back pain including multiple (units unknown) (unknown) (unknown) (no date) (unknown) (unknown) foraminal (units unknown) (unknown) (unknown) (no date) (unknown) (unknown) from prior exam (uni ts unknown) (unknown) (unknown) (no date) (unknown) (unknown) have occurred. If there are any questions, please contact the Medical Records (units unknown) (unknown) (unknown) (no date) (unknown) (unknown) improved sleep , improved mobility, etc. (units unknown) (unknown) (unknown) (no date) (unknown) (unknown) in PT. [] (units unknown) (unknown) (unknown) (no date) (unknown) (unknown) instructed to report to the Emergency department, if these symptoms occur. (units unknown) (unknown) (unknown) (no date) (unknown) (unknown) instructed to stop if any side effects. [] (units unknown) (unknown) (unknown) (no date) (unknown) (unknown) instrumentatio n, stable (units unknown) (unknown) (unknown) (no date) (unknown) (unknown) interested in starting physical therapy and a referral was placed to her auto in (units unknown) (unknown) (unknown) (no date) (unknown) (unknown) intravenous dr ug use, sustained glucocorticoid use, osteoporosis, or a focal (units unknown) (unknown) (unknown) (no date) (unknown) (unknown) lidocaine 5 % topical patch (Lidoderm) 1 patch topical DAILY #30 ea 06/14/22 [Rx (units unknown) (unknown) (unknown) (no date) (unknown) (unknown) local anesthet ic. During that time patient able to participate in ADLs, had (units unknown) (unknown) (unknown) (no date) (unknown) (unknown) lumbar spine operations as well as multiple pain injections.? He notes good (units unknown) (unknown) (unknown) (no date) (unknown) (unknown) may be performed.? ( units unknown) (unknown) (unknown) (no date) (unknown) (unknown) may occur. Occ asional wrong-word or 'sound-alike' substitutions may have (units unknown) (unknown) (unknown) (no date) (unknown) (unknown) meds. [] (units unknown) (unknown) (unknown) (no date) (unknown) (unknown) methocarbamol 750 mg tablet 750 mg PO Q8H PRN muscle pain #30 tabs 06/07/22 [Rx (units unknown) (unknown) (unknown) (no date) (unknown) (unknown) milk Allergy ( Mild, Verified 07/03/22 08:21) (units unknown) (unknown) (unknown) (no date) (unknown) (unknown) neurological d eficit with progressive or disabling symptoms. (units unknown) (unknown) (unknown) (no date) (unknown) (unknown) normal signal and size.? (units unknown) (unknown) (unknown) (no date) (unknown) (unknown) occurred due t o the inherent limitations of voice recognition software. Please (units unknown) (unknown) (unknown) (no date) (unknown) (unknown) omeprazole 20 mg capsule,delayed release 20 mg PO DAILY 06/14/22 [History (units unknown) (unknown) (unknown) (no date) (unknown) (unknown) or immunosuppr essive therapy, previous or current cancer diagnosis, history of (units unknown) (unknown) (unknown) (no date) (unknown) (unknown) oxycodone 5 mg tablet 5 mg PO Q6H PRN pain #10 tabs 06/29/22 [Rx Confirmed (units unknown) (unknown) (unknown) (no date) (unknown) (unknown) oxycodone 5 mg tablet 5 mg PO Q6H PRN pain #14 tabs 06/29/22 [Rx Confirmed (units unknown) (unknown) (unknown) (no date) (unknown) (unknown) pain resolved within he complained of left lower leg as well as foot numbness. (units unknown) (unknown) (unknown) (no date) (unknown) (unknown) pain. [] (units unknown) (unknown) (unknown) (no date) (unknown) (unknown) pregabalin 200 mg capsule 200 mg PO TID 06/14/22 [History Confirmed 07/03/22] (units unknown) (unknown) (unknown) (no date) (unknown) (unknown) read the note carefully and recognize, using context, where these substitutions (units unknown) (unknown) (unknown) (no date) (unknown) (unknown) record, includ ing relevant provider notes, laboratory work, and imaging. (units unknown) (unknown) (unknown) (no date) (unknown) (unknown) relief after S 1 transforaminal MARI in the past.? He would likely benefit from a (units unknown) (unknown) (unknown) (no date) (unknown) (unknown) repeat bilater al S1 transforaminal epidural steroid injection.? He is also (units unknown) (unknown) (unknown) (no date) (unknown) (unknown) jules and (units unknown) (unknown) (unknown) (no date) (unknown) (unknown) scale and/or p ain interferes with ADLs. 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 (units unknown) (unknown) (unknown) (no date) (unknown) (unknown) severe (units unknown) (unknown) (unknown) (no date) (unknown) (unknown) software. Alth ough every effort is made to edit content, manager inside errors (units unknown) (unknown) (unknown) (no date) (unknown) (unknown) spin echo (units unknown) (unknown) (unknown) (no date) (unknown) (unknown) stable.? 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 T12 compression fracture, (units unknown) (unknown) (unknown) (no date) (unknown) (unknown) stenosis (units unknown) (unknown) (unknown) (no date) (unknown) (unknown) stenosis.? Mild (uni ts unknown) (unknown) (unknown) (no date) (unknown) (unknown) stenosis.? (units unknown) (unknown) (unknown) (no date) (unknown) (unknown) stimulator for chronic low back pain.' (units unknown) (unknown) (unknown) (no date) (unknown) (unknown) the prior exam .? No retropulsed fracture fragment. (units unknown) (unknown) (unknown) (no date) (unknown) (unknown) therapeutic in jections and surgery. The risks, consequences, alternatives and (units unknown) (unknown) (unknown) (no date) (unknown) (unknown) therapy. ?A re ferral was provided for the patient. [] (units unknown) (unknown) (unknown) (no date) (unknown) (unknown) through the [facility] spine.? In cases with scoliosis, additional coronal T2 fast (units unknown) (unknown) (unknown) (no date) (unknown) (unknown) to severe (units unknown) (unknown) (unknown) (no date) (unknown) (unknown) tramadol 50 mg tablet 50 mg PO TID PRN pain #30 tabs 06/14/22 [Rx Confirmed (units unknown) (unknown) (unknown) (no date) (unknown) (unknown) tramadol for short-term use.? He is currently being evaluated for spinal cord (units unknown) (unknown) (unknown) (no date) (unknown) (unknown) transforaminal MARI. After the injection he noted increased low back pain. This (units unknown) (unknown) (unknown) (no date) (unknown) (unknown) unchanged.? (units unknown) (unknown) (unknown) (no date) (unknown) (unknown) visit. (units unknown) (unknown) (unknown) (no date) (unknown) (unknown) well as treatm ent options including medications, physical therapy/exercise, (units unknown) (unknown) (unknown) (no date) (unknown) (unknown) with future tr eatment planning. [] (units unknown) (unknown) Result panel 46 (unknown) (no date) (unknown) (unknown) (no value) (units unknown) (unknown) (unknown) (no date) (unknown) (unknown) - Activity: Co ntinue activity as tolerated. [] (units unknown) (unknown) (unknown) (no date) (unknown) (unknown) - Chiropractor , acupuncture[] (units unknown) (unknown) (unknown) (no date) (unknown) (unknown) - Continues cl inician directed home exercise program including exercises learned (units unknown) (unknown) (unknown) (no date) (unknown) (unknown) - Education: C auda equina and associated symptoms, including motor weakness, (units unknown) (unknown) (unknown) (no date) (unknown) (unknown) - Follow-up: [] (uni ts unknown) (unknown) (unknown) (no date) (unknown) (unknown) - I discussed risks, benefits and side effects. Additionally, patient was (units unknown) (unknown) (unknown) (no date) (unknown) (unknown) - Imaging: No new imaging indicated at this time. [] (units unknown) (unknown) (unknown) (no date) (unknown) (unknown) - Interventional/Surgica l procedures: None indicated at this time. [] (units unknown) (unknown) (unknown) (no date) (unknown) (unknown) - Medications: No new prescription at this time. Patient will continue current (units unknown) (unknown) (unknown) (no date) (unknown) (unknown) - Medications: acetaminophen, NSAIDS, neuropathics, muscle relaxants [] (units unknown) (unknown) (unknown) (no date) (unknown) (unknown) - Physical The rapy: Completed 6 week course in the last 6 months OR Patient (units unknown) (unknown) (unknown) (no date) (unknown) (unknown) - Physical therapy/modalities/DME : Patient will likely benefit from physical (units unknown) (unknown) (unknown) (no date) (unknown) (unknown) - Prescription provided and uptitration instructions given if necessary. [] (units unknown) (unknown) (unknown) (no date) (unknown) (unknown) - Previous [] on [] provided []% relief of pain for the expected duration of the (units unknown) (unknown) (unknown) (no date) (unknown) (unknown) - Referrals: N one indicated at this time. [] (units unknown) (unknown) (unknown) (no date) (unknown) (unknown) -to-moderate b ilateral foraminal stenosis (units unknown) (unknown) (unknown) (no date) (unknown) (unknown) 07/03/22 (units unknown) (unknown) (unknown) (no date) (unknown) (unknown) 07/03/22] (units unknown) (unknown) (unknown) (no date) (unknown) (unknown) 05/22/2021, 2:31.? (u nits unknown) (unknown) (unknown) (no date) (unknown) (unknown) 990 (units unknown) (unknown) (unknown) (no date) (unknown) (unknown) ? (units unknown) (unknown) (unknown) (no date) (unknown) (unknown) ? Acetaminophen (units unknown) (unknown) (unknown) (no date) (unknown) (unknown) ? Antidepressants (units unknown) (unknown) (unknown) (no date) (unknown) (unknown) ? Antiepileptics (units unknown) (unknown) (unknown) (no date) (unknown) (unknown) ? Mu scle Relaxants (units unknown) (unknown) (unknown) (no date) (unknown) (unknown) ? NSAIDs ( units unknown) (unknown) (unknown) (no date) (unknown) (unknown) ? Opioids (units unknown) (unknown) (unknown) (no date) (unknown) (unknown) ? Steroids (units unknown) (unknown) (unknown) (no date) (unknown) (unknown) ? Topicals (units unknown) (unknown) (unknown) (no date) (unknown) (unknown) Accompanied by : Self / Same As Patient (units unknown) (unknown) (unknown) (no date) (unknown) (unknown) Age/Sex: 47 / M Date of Service: (units unknown) (unknown) (unknown) (no date) (unknown) (unknown) Aggravating fa ctors include: multiple body positions (units unknown) (unknown) (unknown) (no date) (unknown) (unknown) Alignment and Curvature:? There is normal bony alignment.? (units unknown) (unknown) (unknown) (no date) (unknown) (unknown) All other syst ems reviewed and are unremarkable except as noted in HPI. (units unknown) (unknown) (unknown) (no date) (unknown) (unknown) Allergies (units unknown) (unknown) (unknown) (no date) (unknown) (unknown) [place] [address] (units unknown) (unknown) (unknown) (no date) (unknown) (unknown) Approved by: Vale Aden M.D. on 06/07/2022 at 14:37? (units unknown) (unknown) (unknown) (no date) (unknown) (unknown) Approved by: Fercho Khan M.D. on 06/04/2022 at 21:57 ? (units unknown) (unknown) (unknown) (no date) (unknown) (unknown) Assessment + Plan (u nits unknown) (unknown) (unknown) (no date) (unknown) (unknown) Assessment: (units unknown) (unknown) (unknown) (no date) (unknown) (unknown) Attending Dr: Dhiraj Daigle MD (units unknown) (unknown) (unknown) (no date) (unknown) (unknown) B/L S1 TFESI ( Dr. Blair) 05/26/2021 ? Improved pain for 1 month (units unknown) (unknown) (unknown) (no date) (unknown) (unknown) Bone Marrow:? Wedge-shaped compression fracture T12 without marrow edema or (units unknown) (unknown) (unknown) (no date) (unknown) (unknown) Bones:? 5 [id number]-[id number] vertebrae are present.? Pedicle screw fixation at L3 (units unknown) (unknown) (unknown) (no date) (unknown) (unknown) Bowel and blad kael: No loss of control (units unknown) (unknown) (unknown) (no date) (unknown) (unknown) COMPARISON:? [facility], MR, MR LUMBAR SPINE WO CON, 03/09/2022, 20:09. (units unknown) (unknown) (unknown) (no date) (unknown) (unknown) COMPARISON:? [facility], CR, XR LUMBAR SPINE 2 OR 3 VIEWS, (units unknown) (unknown) (unknown) (no date) (unknown) (unknown) Caudal ? No improvement (units unknown) (unknown) (unknown) (no date) (unknown) (unknown) Chart review: (units unknown) (unknown) (unknown) (no date) (unknown) (unknown) Chief Complaint (uni ts unknown) (unknown) (unknown) (no date) (unknown) (unknown) Chief Complain t: Follow-up (units unknown) (unknown) (unknown) (no date) (unknown) (unknown) Chronic T12 compression fracture without retropulsed fracture fragment (units unknown) (unknown) (unknown) (no date) (unknown) (unknown) Confirmed 07/03/22] (units unknown) (unknown) (unknown) (no date) (unknown) (unknown) Conservative management includes: (units unknown) (unknown) (unknown) (no date) (unknown) (unknown) Continue [facility] physical therapy. [] (units unknown) (unknown) (unknown) (no date) (unknown) (unknown) Continue home exercise program. 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 (units unknown) (unknown) (unknown) (no date) (unknown) (unknown) Details: (units unknown) (unknown) (unknown) (no date) (unknown) (unknown) Dictated by: Fercho Khan M.D. on 06/04/2022 at 21:55 ? ? (units unknown) (unknown) (unknown) (no date) (unknown) (unknown) Documented By: Dhiraj Daigle MD 07/03/22 0803 (units unknown) (unknown) (unknown) (no date) (unknown) (unknown) Draft (units unknown) (unknown) (unknown) (no date) (unknown) (unknown) Duloxetine 60 mg (un its unknown) (unknown) (unknown) (no date) (unknown) (unknown) FINDINGS:? (units unknown) (unknown) (unknown) (no date) (unknown) (unknown) Follow Up ED x 4 [2 visits at , 2 at [place]] (units unknown) (unknown) (unknown) (no date) (unknown) (unknown) HPI (units unknown) (unknown) (unknown) (no date) (unknown) (unknown) He went to the ED at [facility] twice as well as an outside hospital twice. (units unknown) (unknown) (unknown) (no date) (unknown) (unknown) IMPRESSION:? (units unknown) (unknown) (unknown) (no date) (unknown) (unknown) INDICATIONS:? New lower extremity weakness, pain exacerbation after twist (units unknown) (unknown) (unknown) (no date) (unknown) (unknown) INDICATIONS:? hx of multiple back surgeries with pain after fall (units unknown) (unknown) (unknown) (no date) (unknown) (unknown) Image quality: ? Excellent.? (units unknown) (unknown) (unknown) (no date) (unknown) (unknown) Injections: (units unknown) (unknown) (unknown) (no date) (unknown) (unknown) Intake Clinical Staf f (units unknown) (unknown) (unknown) (no date) (unknown) (unknown) Intake Note: (units unknown) (unknown) (unknown) (no date) (unknown) (unknown) Intake perform ed by: Paola Whitfield (units unknown) (unknown) (unknown) (no date) (unknown) (unknown) Intake (units unknown) (unknown) (unknown) (no date) (unknown) (unknown) Interval History: (u nits unknown) (unknown) (unknown) (no date) (unknown) (unknown) Intervention:?Date:?Outcome:?? ? (units unknown) (unknown) (unknown) (no date) (unknown) (unknown) [facility], MR, MR LUMBAR SPINE WO CON, 03/09/2022, 20:09. (units unknown) (unknown) (unknown) (no date) (unknown) (unknown) JUSTIFICATION OF MEDICAL NECESSITY (units unknown) (unknown) (unknown) (no date) (unknown) (unknown) L-spine/T-spin e/C-spin e MRI ordered to better delineate the anatomy and help (units unknown) (unknown) (unknown) (no date) (unknown) (unknown) L1-L2:? Disc s pace is preserved.? No central or foraminal stenosis (units unknown) (unknown) (unknown) (no date) (unknown) (unknown) L2-L3:? Disc s pace narrowing and circumferential disc bulge results in moderate (units unknown) (unknown) (unknown) (no date) (unknown) (unknown) L3, L4 and L5 decompressive laminectomies with interbody fusion and posterior (units unknown) (unknown) (unknown) (no date) (unknown) (unknown) L3-L4:? Discec madonna and fusion with posterior decompression.? No central (units unknown) (unknown) (unknown) (no date) (unknown) (unknown) L4-L5:? Discec madonna and fusion with posterior decompression.? No central (units unknown) (unknown) (unknown) (no date) (unknown) (unknown) L5-S1:? Discec madonna and fusion with posterior decompression.? No central (units unknown) (unknown) (unknown) (no date) (unknown) (unknown) Lidoderm patch (unit s unknown) (unknown) (unknown) (no date) (unknown) (unknown) Loc: PAIN (units unknown) (unknown) (unknown) (no date) (unknown) (unknown) Lower lumbar s pine interbody fusion, posterior decompression and (units unknown) (unknown) (unknown) (no date) (unknown) (unknown) Lumbar radiculopathy (units unknown) (unknown) (unknown) (no date) (unknown) (unknown) Lumbar spine f ixation appears stable. (units unknown) (unknown) (unknown) (no date) (unknown) (unknown) Lyrica 200 mg b.i.d. (units unknown) (unknown) (unknown) (no date) (unknown) (unknown) MRI 06/28/22 (units unknown) (unknown) (unknown) (no date) (unknown) (unknown) MSK: System re viewed and no additional complaints, except as documented. (units unknown) (unknown) (unknown) (no date) (unknown) (unknown) Medical Histor y (units unknown) (unknown) (unknown) (no date) (unknown) (unknown) Medications (units unknown) (unknown) (unknown) (no date) (unknown) (unknown) Medications: (units unknown) (unknown) (unknown) (no date) (unknown) (unknown) Moderate left and right foraminal stenosis (units unknown) (unknown) (unknown) (no date) (unknown) (unknown) Neuro: System reviewed and no additional complaints, except as documented. (units unknown) (unknown) (unknown) (no date) (unknown) (unknown) No suspicious bony lesions.? (units unknown) (unknown) (unknown) (no date) (unknown) (unknown) Noncontrast sa gittal T1 spin echo and T2 fast echo, sagittal STIR, and T2 fast (units unknown) (unknown) (unknown) (no date) (unknown) (unknown) Not indicated at this time. [] (units unknown) (unknown) (unknown) (no date) (unknown) (unknown) Numbness/Tingling: ( units unknown) (unknown) (unknown) (no date) (unknown) (unknown) [place].? H e requested a refill of Lidoderm patches we will also start (units unknown) (unknown) (unknown) (no date) (unknown) (unknown) Objective Data (unit s unknown) (unknown) (unknown) (no date) (unknown) (unknown) Objective Data: (uni ts unknown) (unknown) (unknown) (no date) (unknown) (unknown) Onset/Context of parish n: (units unknown) (unknown) (unknown) (no date) (unknown) (unknown) Onset: insidio us, exacerbated by recent fall (units unknown) (unknown) (unknown) (no date) (unknown) (unknown) Other: acupuncture ( units unknown) (unknown) (unknown) (no date) (unknown) (unknown) PFSH (units unknown) (unknown) (unknown) (no date) (unknown) (unknown) PROCEDURE:? MR LUMBAR SPINE WO CON (units unknown) (unknown) (unknown) (no date) (unknown) (unknown) PROCEDURE:? XR LUMBAR SPINE 2-3V (units unknown) (unknown) (unknown) (no date) (unknown) (unknown) PT: Last PT wa s about 2 months ago in [place] (units unknown) (unknown) (unknown) (no date) (unknown) (unknown) Pain Visit (units unknown) (unknown) (unknown) (no date) (unknown) (unknown) Pain location/Radiation: Back - 'in my back'; Bilateral legs; squeezing of (units unknown) (unknown) (unknown) (no date) (unknown) (unknown) Pain ratin /10 today, 10/10 at worst (units unknown) (unknown) (unknown) (no date) (unknown) (unknown) Paraspinous So ft Tissues:? No paravertebral masses.? (units unknown) (unknown) (unknown) (no date) (unknown) (unknown) Past medical, surgical, social, and family history is unchanged from prior (units unknown) (unknown) (unknown) (no date) (unknown) (unknown) Patient was [facility] seen here on 06/22/2022 at which time he had bilateral S1 (units unknown) (unknown) (unknown) (no date) (unknown) (unknown) Patient will r eturn for []. Risks and benefits were discussed. (units unknown) (unknown) (unknown) (no date) (unknown) (unknown) Patient's pain has been present for >6 weeks and is an average of >6/10 on 0-10 (units unknown) (unknown) (unknown) (no date) (unknown) (unknown) Patient: Kishor Carrasquillo MR#: [id number] (units unknown) (unknown) (unknown) (no date) (unknown) (unknown) Pertinent medi cations include: (units unknown) (unknown) (unknown) (no date) (unknown) (unknown) Plan (units unknown) (unknown) (unknown) (no date) (unknown) (unknown) Plan/Recommendations : (units unknown) (unknown) (unknown) (no date) (unknown) (unknown) Prescriptions Written: [] (units unknown) (unknown) (unknown) (no date) (unknown) (unknown) Previous Visit Assessment: Kelsey is a 47-year-old male presenting for further (units unknown) (unknown) (unknown) (no date) (unknown) (unknown) Previous pain treatments included: (units unknown) (unknown) (unknown) (no date) (unknown) (unknown) Quality and ti gerri of pain: (units unknown) (unknown) (unknown) (no date) (unknown) (unknown) ROS Narrative (units unknown) (unknown) (unknown) (no date) (unknown) (unknown) ROS Narrative: (unit s unknown) (unknown) (unknown) (no date) (unknown) (unknown) ROS (units unknown) (unknown) (unknown) (no date) (unknown) (unknown) Reason For Visit (un its unknown) (unknown) (unknown) (no date) (unknown) (unknown) Red flag symptoms: ( units unknown) (unknown) (unknown) (no date) (unknown) (unknown) Relieving fact ors include: changing positions, laying down (units unknown) (unknown) (unknown) (no date) (unknown) (unknown) Robaxin 750 mg (unit s unknown) (unknown) (unknown) (no date) (unknown) (unknown) S/P S1 TF MARI (units unknown) (unknown) (unknown) (no date) (unknown) (unknown) S1 appears (units unknown) (unknown) (unknown) (no date) (unknown) (unknown) [place] anesthe [place]: denies (units unknown) (unknown) (unknown) (no date) (unknown) (unknown) Signed By: (units unknown) (unknown) (unknown) (no date) (unknown) (unknown) Smoking Status : Never smoker (units unknown) (unknown) (unknown) (no date) (unknown) (unknown) Soft tissues:? Overlying bowel gas pattern is normal.? No suspicious soft tissue (units unknown) (unknown) (unknown) (no date) (unknown) (unknown) Spinal Cord:? Conus medullaris terminates at the L1 level.? Visualized cord (units unknown) (unknown) (unknown) (no date) (unknown) (unknown) Standing: incr eased leg and back pain (units unknown) (unknown) (unknown) (no date) (unknown) (unknown) Stat lumbar MR I was done on 06/28/2022 which did not show any acute (units unknown) (unknown) (unknown) (no date) (unknown) (unknown) Surgery: Patie nt is s/p L3-S1 posterior instrumented fusion in 2012 (units unknown) (unknown) (unknown) (no date) (unknown) (unknown) T12 compressio n fracture is unchanged. (units unknown) (unknown) (unknown) (no date) (unknown) (unknown) T12-L1:? Disc space is preserved.? No central or foraminal stenosis. (units unknown) (unknown) (unknown) (no date) (unknown) (unknown) TECHNIQUE:? 2 views of the lumbar spine were acquired.? (units unknown) (unknown) (unknown) (no date) (unknown) (unknown) TECHNIQUE:? (units unknown) (unknown) (unknown) (no date) (unknown) (unknown) [facility] (units unknown) (unknown) (unknown) (no date) (unknown) (unknown) This note may have been all or partially generated using voice recognition (units unknown) (unknown) (unknown) (no date) (unknown) (unknown) Tobacco + Subs tance Use (units unknown) (unknown) (unknown) (no date) (unknown) (unknown) Tobacco Status (unit s unknown) (unknown) (unknown) (no date) (unknown) (unknown) Today I have r eviewed available medical information in the patient's medical (units unknown) (unknown) (unknown) (no date) (unknown) (unknown) Visit Reasons: Follow Up ED (units unknown) (unknown) (unknown) (no date) (unknown) (unknown) Walking: incre ased leg and back pain (units unknown) (unknown) (unknown) (no date) (unknown) (unknown) [place] Prescription Monitoring Program (RN LABOR AND DELIVERY) was reviewed. (units unknown) (unknown) (unknown) (no date) (unknown) (unknown) We reviewed et iology, predisposing factor(s), natural course, imaging results as (units unknown) (unknown) (unknown) (no date) (unknown) (unknown) Weakness: denies (un its unknown) (unknown) (unknown) (no date) (unknown) (unknown) abnormalities. He saw his neurosurgeon on 06/30/22. (units unknown) (unknown) (unknown) (no date) (unknown) (unknown) benefits of va rious treatment options were discussed with the patient in great (units unknown) (unknown) (unknown) (no date) (unknown) (unknown) bilateral fora solo stenosis (units unknown) (unknown) (unknown) (no date) (unknown) (unknown) bilateral test icles R>L (units unknown) (unknown) (unknown) (no date) (unknown) (unknown) bowel/bladder dysfunction, and perineal numbness were discussed. The patient was (units unknown) (unknown) (unknown) (no date) (unknown) (unknown) calcifications.? (un its unknown) (unknown) (unknown) (no date) (unknown) (unknown) cannot tolerat e physical therapy at the current time due to the intensity of the (units unknown) (unknown) (unknown) (no date) (unknown) (unknown) central stenosis. (u nits unknown) (unknown) (unknown) (no date) (unknown) (unknown) central stenos is.? Hypertrophic facet joints contribute to moderate bilateral (units unknown) (unknown) (unknown) (no date) (unknown) (unknown) change from (units unknown) (unknown) (unknown) (no date) (unknown) (unknown) demonstrates (units unknown) (unknown) (unknown) (no date) (unknown) (unknown) detail. (units unknown) (unknown) (unknown) (no date) (unknown) (unknown) duloxetine 60 mg capsule,delayed release 60 mg PO DAILY 06/14/22 [History (units unknown) (unknown) (unknown) (no date) (unknown) (unknown) evaluation of chronic low back pain with radiation to bilateral lower (units unknown) (unknown) (unknown) (no date) (unknown) (unknown) extremities.? He has a complicated history of low back pain including multiple (units unknown) (unknown) (unknown) (no date) (unknown) (unknown) ferrous sulfat e 325 mg (65 mg iron) tablet 325 mg PO DAILY 07/03/22 [History (units unknown) (unknown) (unknown) (no date) (unknown) (unknown) foraminal (units unknown) (unknown) (unknown) (no date) (unknown) (unknown) from prior exam (uni ts unknown) (unknown) (unknown) (no date) (unknown) (unknown) have occurred. If there are any questions, please contact the Medical Records (units unknown) (unknown) (unknown) (no date) (unknown) (unknown) improved sleep , improved mobility, etc. (units unknown) (unknown) (unknown) (no date) (unknown) (unknown) in PT. [] (units unknown) (unknown) (unknown) (no date) (unknown) (unknown) instructed to report to the Emergency department, if these symptoms occur. (units unknown) (unknown) (unknown) (no date) (unknown) (unknown) instructed to stop if any side effects. [] (units unknown) (unknown) (unknown) (no date) (unknown) (unknown) instrumentatio n, stable (units unknown) (unknown) (unknown) (no date) (unknown) (unknown) interested in starting physical therapy and a referral was placed to her auto in (units unknown) (unknown) (unknown) (no date) (unknown) (unknown) intravenous dr ug use, sustained glucocorticoid use, osteoporosis, or a focal (units unknown) (unknown) (unknown) (no date) (unknown) (unknown) local anesthet ic. During that time patient able to participate in ADLs, had (units unknown) (unknown) (unknown) (no date) (unknown) (unknown) lumbar spine operations as well as multiple pain injections.? He notes good (units unknown) (unknown) (unknown) (no date) (unknown) (unknown) may be performed.? ( units unknown) (unknown) (unknown) (no date) (unknown) (unknown) may occur. Occ asional wrong-word or 'sound-alike' substitutions may have (units unknown) (unknown) (unknown) (no date) (unknown) (unknown) meds. [] (units unknown) (unknown) (unknown) (no date) (unknown) (unknown) methocarbamol 750 mg tablet 750 mg PO Q8H PRN muscle pain #30 tabs 06/07/22 [Rx (units unknown) (unknown) (unknown) (no date) (unknown) (unknown) milk Allergy ( Mild, Verified 07/03/22 08:21) (units unknown) (unknown) (unknown) (no date) (unknown) (unknown) neurological d eficit with progressive or disabling symptoms. (units unknown) (unknown) (unknown) (no date) (unknown) (unknown) normal signal and size.? (units unknown) (unknown) (unknown) (no date) (unknown) (unknown) occurred due t o the inherent limitations of voice recognition software. Please (units unknown) (unknown) (unknown) (no date) (unknown) (unknown) omeprazole 20 mg capsule,delayed release 20 mg PO DAILY 06/14/22 [History (units unknown) (unknown) (unknown) (no date) (unknown) (unknown) or immunosuppr essive therapy, previous or current cancer diagnosis, history of (units unknown) (unknown) (unknown) (no date) (unknown) (unknown) pain resolved within he complained of left lower leg as well as foot numbness. (units unknown) (unknown) (unknown) (no date) (unknown) (unknown) pain. [] (units unknown) (unknown) (unknown) (no date) (unknown) (unknown) pregabalin 200 mg capsule 200 mg PO TID 06/14/22 [History Confirmed 07/03/22] (units unknown) (unknown) (unknown) (no date) (unknown) (unknown) read the note carefully and recognize, using context, where these substitutions (units unknown) (unknown) (unknown) (no date) (unknown) (unknown) record, includ ing relevant provider notes, laboratory work, and imaging. (units unknown) (unknown) (unknown) (no date) (unknown) (unknown) relief after S 1 transforaminal MARI in the past.? He would likely benefit from a (units unknown) (unknown) (unknown) (no date) (unknown) (unknown) repeat bilater al S1 transforaminal epidural steroid injection.? He is also (units unknown) (unknown) (unknown) (no date) (unknown) (unknown) jules and (units unknown) (unknown) (unknown) (no date) (unknown) (unknown) scale and/or p ain interferes with ADLs. 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 (units unknown) (unknown) (unknown) (no date) (unknown) (unknown) severe (units unknown) (unknown) (unknown) (no date) (unknown) (unknown) software. Alth ough every effort is made to edit content, manager inside errors (units unknown) (unknown) (unknown) (no date) (unknown) (unknown) spin echo (units unknown) (unknown) (unknown) (no date) (unknown) (unknown) stable.? 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 T12 compression fracture, (units unknown) (unknown) (unknown) (no date) (unknown) (unknown) stenosis (units unknown) (unknown) (unknown) (no date) (unknown) (unknown) stenosis.? Mild (uni ts unknown) (unknown) (unknown) (no date) (unknown) (unknown) stenosis.? (units unknown) (unknown) (unknown) (no date) (unknown) (unknown) stimulator for chronic low back pain.' (units unknown) (unknown) (unknown) (no date) (unknown) (unknown) the prior exam .? No retropulsed fracture fragment. (units unknown) (unknown) (unknown) (no date) (unknown) (unknown) therapeutic in jections and surgery. The risks, consequences, alternatives and (units unknown) (unknown) (unknown) (no date) (unknown) (unknown) therapy. ?A re ferral was provided for the patient. [] (units unknown) (unknown) (unknown) (no date) (unknown) (unknown) through the [facility] spine.? In cases with scoliosis, additional coronal T2 fast (units unknown) (unknown) (unknown) (no date) (unknown) (unknown) tizanidine 2 m g capsule 2 mg PO Q8H PRN 07/03/22 [History Confirmed 07/03/22] (units unknown) (unknown) (unknown) (no date) (unknown) (unknown) to severe (units unknown) (unknown) (unknown) (no date) (unknown) (unknown) tramadol 50 mg tablet 50 mg PO TID PRN pain #30 tabs 06/14/22 [Rx Confirmed (units unknown) (unknown) (unknown) (no date) (unknown) (unknown) tramadol for short-term use.? He is currently being evaluated for spinal cord (units unknown) (unknown) (unknown) (no date) (unknown) (unknown) transforaminal MARI. After the injection he noted increased low back pain. This (units unknown) (unknown) (unknown) (no date) (unknown) (unknown) unchanged.? (units unknown) (unknown) (unknown) (no date) (unknown) (unknown) visit. (units unknown) (unknown) (unknown) (no date) (unknown) (unknown) well as treatm ent options including medications, physical therapy/exercise, (units unknown) (unknown) (unknown) (no date) (unknown) (unknown) with future tr eatment planning. [] (units unknown) (unknown) Result panel 47 (unknown) (no date) (unknown) (unknown) (no value) (units unknown) (unknown) (unknown) (no date) (unknown) (unknown) - Activity: Co ntinue activity as tolerated. [] (units unknown) (unknown) (unknown) (no date) (unknown) (unknown) - Chiropractor , acupuncture[] (units unknown) (unknown) (unknown) (no date) (unknown) (unknown) - Continues cl inician directed home exercise program including exercises learned (units unknown) (unknown) (unknown) (no date) (unknown) (unknown) - Education: C auda equina and associated symptoms, including motor weakness, (units unknown) (unknown) (unknown) (no date) (unknown) (unknown) - Follow-up: [] (uni ts unknown) (unknown) (unknown) (no date) (unknown) (unknown) - I discussed risks, benefits and side effects. Additionally, patient was (units unknown) (unknown) (unknown) (no date) (unknown) (unknown) - Imaging: No new imaging indicated at this time. [] (units unknown) (unknown) (unknown) (no date) (unknown) (unknown) - Interventional/Surgica l procedures: None indicated at this time. [] (units unknown) (unknown) (unknown) (no date) (unknown) (unknown) - Medications: No new prescription at this time. Patient will continue current (units unknown) (unknown) (unknown) (no date) (unknown) (unknown) - Medications: acetaminophen, NSAIDS, neuropathics, muscle relaxants [] (units unknown) (unknown) (unknown) (no date) (unknown) (unknown) - Physical The rapy: Completed 6 week course in the last 6 months OR Patient (units unknown) (unknown) (unknown) (no date) (unknown) (unknown) - Physical therapy/modalities/DME : Patient will likely benefit from physical (units unknown) (unknown) (unknown) (no date) (unknown) (unknown) - Prescription provided and uptitration instructions given if necessary. [] (units unknown) (unknown) (unknown) (no date) (unknown) (unknown) - Previous [] on [] provided []% relief of pain for the expected duration of the (units unknown) (unknown) (unknown) (no date) (unknown) (unknown) - Referrals: N one indicated at this time. [] (units unknown) (unknown) (unknown) (no date) (unknown) (unknown) -to-moderate b ilateral foraminal stenosis (units unknown) (unknown) (unknown) (no date) (unknown) (unknown) 07/03/22 (units unknown) (unknown) (unknown) (no date) (unknown) (unknown) 07/03/22] (units unknown) (unknown) (unknown) (no date) (unknown) (unknown) 09:09 (units unknown) (unknown) (unknown) (no date) (unknown) (unknown) 05/22/2021, 2:31.? (u nits unknown) (unknown) (unknown) (no date) (unknown) (unknown) 990 (units unknown) (unknown) (unknown) (no date) (unknown) (unknown) ? (units unknown) (unknown) (unknown) (no date) (unknown) (unknown) ? Acetaminophen (units unknown) (unknown) (unknown) (no date) (unknown) (unknown) ? Antidepressants (units unknown) (unknown) (unknown) (no date) (unknown) (unknown) ? Antiepileptics (units unknown) (unknown) (unknown) (no date) (unknown) (unknown) ? Mu scle Relaxants (units unknown) (unknown) (unknown) (no date) (unknown) (unknown) ? NSAIDs ( units unknown) (unknown) (unknown) (no date) (unknown) (unknown) ? Opioids (units unknown) (unknown) (unknown) (no date) (unknown) (unknown) ? Steroids (units unknown) (unknown) (unknown) (no date) (unknown) (unknown) ? Topicals (units unknown) (unknown) (unknown) (no date) (unknown) (unknown) Accompanied by : Self / Same As Patient (units unknown) (unknown) (unknown) (no date) (unknown) (unknown) Age/Sex: 47 / M Date of Service: (units unknown) (unknown) (unknown) (no date) (unknown) (unknown) Aggravating fa ctors include: multiple body positions (units unknown) (unknown) (unknown) (no date) (unknown) (unknown) Alignment and Curvature:? There is normal bony alignment.? (units unknown) (unknown) (unknown) (no date) (unknown) (unknown) All other syst ems reviewed and are unremarkable except as noted in HPI. (units unknown) (unknown) (unknown) (no date) (unknown) (unknown) Allergies (units unknown) (unknown) (unknown) (no date) (unknown) (unknown) [place] [id number] (units unknown) (unknown) (unknown) (no date) (unknown) (unknown) Approved by: Vale Aden M.D. on 06/07/2022 at 14:37? (units unknown) (unknown) (unknown) (no date) (unknown) (unknown) Approved by: Fercho Khan M.D. on 06/04/2022 at 21:57 ? (units unknown) (unknown) (unknown) (no date) (unknown) (unknown) Assessment + Plan (u nits unknown) (unknown) (unknown) (no date) (unknown) (unknown) Assessment: (units unknown) (unknown) (unknown) (no date) (unknown) (unknown) Attending Dr: Dhiraj Daigle MD (units unknown) (unknown) (unknown) (no date) (unknown) (unknown) B/L S1 TFESI ( Dr. Blair) 05/26/2021 ? Improved pain for 1 month (units unknown) (unknown) (unknown) (no date) (unknown) (unknown) BMI 33.8 (units unknown) (unknown) (unknown) (no date) (unknown) (unknown) BP 116/66 (units unknown) (unknown) (unknown) (no date) (unknown) (unknown) Blood Pressure Location Rt brachial (units unknown) (unknown) (unknown) (no date) (unknown) (unknown) Bone Marrow:? Wedge-shaped compression fracture T12 without marrow edema or (units unknown) (unknown) (unknown) (no date) (unknown) (unknown) Bones:? 5 zsi-ign-yxnmaxh vertebrae are present.? Pedicle screw fixation at L3 (units unknown) (unknown) (unknown) (no date) (unknown) (unknown) Bowel and blad kael: No loss of control (units unknown) (unknown) (unknown) (no date) (unknown) (unknown) COMPARISON:? [facility], MR, MR LUMBAR SPINE WO CON, 03/09/2022, 20:09. (units unknown) (unknown) (unknown) (no date) (unknown) (unknown) COMPARISON:? [facility], CR, XR LUMBAR SPINE 2 OR 3 VIEWS, (units unknown) (unknown) (unknown) (no date) (unknown) (unknown) Caudal ? No improvement (units unknown) (unknown) (unknown) (no date) (unknown) (unknown) Chart review: (units unknown) (unknown) (unknown) (no date) (unknown) (unknown) Chief Complaint (uni ts unknown) (unknown) (unknown) (no date) (unknown) (unknown) Chief Complain t: Follow-up (units unknown) (unknown) (unknown) (no date) (unknown) (unknown) Chronic T12 compression fracture without retropulsed fracture fragment (units unknown) (unknown) (unknown) (no date) (unknown) (unknown) Confirmed 07/03/22] (units unknown) (unknown) (unknown) (no date) (unknown) (unknown) Conservative management includes: (units unknown) (unknown) (unknown) (no date) (unknown) (unknown) Continue [facility] therapy. [] (units unknown) (unknown) (unknown) (no date) (unknown) (unknown) Continue home exercise program. 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 (units unknown) (unknown) (unknown) (no date) (unknown) (unknown) Details: (units unknown) (unknown) (unknown) (no date) (unknown) (unknown) Dictated by: Fercho Khan M.D. on 06/04/2022 at 21:55 ? ? (units unknown) (unknown) (unknown) (no date) (unknown) (unknown) Documented By: Dhiraj Daigle MD 07/03/22 0803 (units unknown) (unknown) (unknown) (no date) (unknown) (unknown) Draft (units unknown) (unknown) (unknown) (no date) (unknown) (unknown) Duloxetine 60 mg (un its unknown) (unknown) (unknown) (no date) (unknown) (unknown) FINDINGS:? (units unknown) (unknown) (unknown) (no date) (unknown) (unknown) Follow Up ED x 4 [2 visits at , 2 at [place]] (units unknown) (unknown) (unknown) (no date) (unknown) (unknown) HPI (units unknown) (unknown) (unknown) (no date) (unknown) (unknown) He went to the ED at [facility] twice as well as an outside hospital twice. (units unknown) (unknown) (unknown) (no date) (unknown) (unknown) Height 6 ft (units unknown) (unknown) (unknown) (no date) (unknown) (unknown) IMPRESSION:? (units unknown) (unknown) (unknown) (no date) (unknown) (unknown) INDICATIONS:? New lower extremity weakness, pain exacerbation after twist (units unknown) (unknown) (unknown) (no date) (unknown) (unknown) INDICATIONS:? hx of multiple back surgeries with pain after fall (units unknown) (unknown) (unknown) (no date) (unknown) (unknown) Image quality: ? Excellent.? (units unknown) (unknown) (unknown) (no date) (unknown) (unknown) Injections: (units unknown) (unknown) (unknown) (no date) (unknown) (unknown) Intake Clinical Staf f (units unknown) (unknown) (unknown) (no date) (unknown) (unknown) Intake Note: (units unknown) (unknown) (unknown) (no date) (unknown) (unknown) Intake perform ed by: Paola Whitfield (units unknown) (unknown) (unknown) (no date) (unknown) (unknown) Intake (units unknown) (unknown) (unknown) (no date) (unknown) (unknown) Interval History: (u nits unknown) (unknown) (unknown) (no date) (unknown) (unknown) Intervention:?Date:?Outcome:?? ? (units unknown) (unknown) (unknown) (no date) (unknown) (unknown) Is patient in pain?: Yes Pain scale (1-10): 6 (units unknown) (unknown) (unknown) (no date) (unknown) (unknown) [facility], MR, MR LUMBAR SPINE WO CON, 03/09/2022, 20:09. (units unknown) (unknown) (unknown) (no date) (unknown) (unknown) JUSTIFICATION OF MEDICAL NECESSITY (units unknown) (unknown) (unknown) (no date) (unknown) (unknown) L-spine/T-spin e/C-spin e MRI ordered to better delineate the anatomy and help (units unknown) (unknown) (unknown) (no date) (unknown) (unknown) L1-L2:? Disc s pace is preserved.? No central or foraminal stenosis (units unknown) (unknown) (unknown) (no date) (unknown) (unknown) L2-L3:? Disc s pace narrowing and circumferential disc bulge results in moderate (units unknown) (unknown) (unknown) (no date) (unknown) (unknown) L3, L4 and L5 decompressive laminectomies with interbody fusion and posterior (units unknown) (unknown) (unknown) (no date) (unknown) (unknown) L3-L4:? Discec madonna and fusion with posterior decompression.? No central (units unknown) (unknown) (unknown) (no date) (unknown) (unknown) L4-L5:? Discec madonna and fusion with posterior decompression.? No central (units unknown) (unknown) (unknown) (no date) (unknown) (unknown) L5-S1:? Discec madonna and fusion with posterior decompression.? No central (units unknown) (unknown) (unknown) (no date) (unknown) (unknown) Lidoderm patch (unit s unknown) (unknown) (unknown) (no date) (unknown) (unknown) Loc: PAIN (units unknown) (unknown) (unknown) (no date) (unknown) (unknown) Lower lumbar s pine interbody fusion, posterior decompression and (units unknown) (unknown) (unknown) (no date) (unknown) (unknown) Lumbar radiculopathy (units unknown) (unknown) (unknown) (no date) (unknown) (unknown) Lumbar spine f ixation appears stable. (units unknown) (unknown) (unknown) (no date) (unknown) (unknown) Lyrica 200 mg b.i.d. (units unknown) (unknown) (unknown) (no date) (unknown) (unknown) MRI 06/28/22 (units unknown) (unknown) (unknown) (no date) (unknown) (unknown) MSK: System re viewed and no additional complaints, except as documented. (units unknown) (unknown) (unknown) (no date) (unknown) (unknown) Medical Histor y (units unknown) (unknown) (unknown) (no date) (unknown) (unknown) Medications (units unknown) (unknown) (unknown) (no date) (unknown) (unknown) Medications: (units unknown) (unknown) (unknown) (no date) (unknown) (unknown) Moderate left and right foraminal stenosis (units unknown) (unknown) (unknown) (no date) (unknown) (unknown) Neuro: System reviewed and no additional complaints, except as documented. (units unknown) (unknown) (unknown) (no date) (unknown) (unknown) No suspicious bony lesions.? (units unknown) (unknown) (unknown) (no date) (unknown) (unknown) Noncontrast sa gittal T1 spin echo and T2 fast echo, sagittal STIR, and T2 fast (units unknown) (unknown) (unknown) (no date) (unknown) (unknown) Not indicated at this time. [] (units unknown) (unknown) (unknown) (no date) (unknown) (unknown) Numbness/Tingling: ( units unknown) (unknown) (unknown) (no date) (unknown) (unknown) [place].? H e requested a refill of Lidoderm patches we will also start (units unknown) (unknown) (unknown) (no date) (unknown) (unknown) Objective Data (unit s unknown) (unknown) (unknown) (no date) (unknown) (unknown) Objective Data: (uni ts unknown) (unknown) (unknown) (no date) (unknown) (unknown) Onset/Context of parish n: (units unknown) (unknown) (unknown) (no date) (unknown) (unknown) Onset: insidio us, exacerbated by recent fall (units unknown) (unknown) (unknown) (no date) (unknown) (unknown) Other: acupuncture ( units unknown) (unknown) (unknown) (no date) (unknown) (unknown) Oxygen Deliver y Method room air (units unknown) (unknown) (unknown) (no date) (unknown) (unknown) PFSH (units unknown) (unknown) (unknown) (no date) (unknown) (unknown) PROCEDURE:? MR LUMBAR SPINE WO CON (units unknown) (unknown) (unknown) (no date) (unknown) (unknown) PROCEDURE:? XR LUMBAR SPINE 2-3V (units unknown) (unknown) (unknown) (no date) (unknown) (unknown) PT: Last PT wa s about 2 months ago in [place] (units unknown) (unknown) (unknown) (no date) (unknown) (unknown) Pain Scale (units unknown) (unknown) (unknown) (no date) (unknown) (unknown) Pain Visit (units unknown) (unknown) (unknown) (no date) (unknown) (unknown) Pain location/Radiation: Back - 'in my back'; Bilateral legs; squeezing of (units unknown) (unknown) (unknown) (no date) (unknown) (unknown) Pain ratin /10 today, 10/10 at worst (units unknown) (unknown) (unknown) (no date) (unknown) (unknown) Paraspinous So ft Tissues:? No paravertebral masses.? (units unknown) (unknown) (unknown) (no date) (unknown) (unknown) Past medical, surgical, social, and family history is unchanged from prior (units unknown) (unknown) (unknown) (no date) (unknown) (unknown) Patient was d[place] seen here on 06/22/2022 at which time he had bilateral S1 (units unknown) (unknown) (unknown) (no date) (unknown) (unknown) Patient will r eturn for []. Risks and benefits were discussed. (units unknown) (unknown) (unknown) (no date) (unknown) (unknown) Patient's pain has been present for >6 weeks and is an average of >6/10 on 0-10 (units unknown) (unknown) (unknown) (no date) (unknown) (unknown) Patient: Kishor Carrasquillo MR#: [id number] (units unknown) (unknown) (unknown) (no date) (unknown) (unknown) Pertinent medi cations include: (units unknown) (unknown) (unknown) (no date) (unknown) (unknown) Plan (units unknown) (unknown) (unknown) (no date) (unknown) (unknown) Plan/Recommendations : (units unknown) (unknown) (unknown) (no date) (unknown) (unknown) Position Sitting (un its unknown) (unknown) (unknown) (no date) (unknown) (unknown) Prescriptions Written: [] (units unknown) (unknown) (unknown) (no date) (unknown) (unknown) Previous Visit Assessment: Kelsey is a 47-year-old male presenting for further (units unknown) (unknown) (unknown) (no date) (unknown) (unknown) Previous pain treatments included: (units unknown) (unknown) (unknown) (no date) (unknown) (unknown) Pulse 87 (units unknown) (unknown) (unknown) (no date) (unknown) (unknown) Pulse Oximetry (%) 9 8 (units unknown) (unknown) (unknown) (no date) (unknown) (unknown) Pulse Source Monitor (units unknown) (unknown) (unknown) (no date) (unknown) (unknown) Quality and ti gerri of pain: (units unknown) (unknown) (unknown) (no date) (unknown) (unknown) ROS Narrative (units unknown) (unknown) (unknown) (no date) (unknown) (unknown) ROS Narrative: (unit s unknown) (unknown) (unknown) (no date) (unknown) (unknown) ROS (units unknown) (unknown) (unknown) (no date) (unknown) (unknown) Reason For Visit (un its unknown) (unknown) (unknown) (no date) (unknown) (unknown) Red flag symptoms: ( units unknown) (unknown) (unknown) (no date) (unknown) (unknown) Relieving fact ors include: changing positions, laying down (units unknown) (unknown) (unknown) (no date) (unknown) (unknown) Robaxin 750 mg (unit s unknown) (unknown) (unknown) (no date) (unknown) (unknown) S/P S1 TF MARI (units unknown) (unknown) (unknown) (no date) (unknown) (unknown) S1 appears (units unknown) (unknown) (unknown) (no date) (unknown) (unknown) [place]addle anesthe marina: denies (units unknown) (unknown) (unknown) (no date) (unknown) (unknown) Signed By: (units unknown) (unknown) (unknown) (no date) (unknown) (unknown) Smoking Status : Never smoker (units unknown) (unknown) (unknown) (no date) (unknown) (unknown) Soft tissues:? Overlying bowel gas pattern is normal.? No suspicious soft tissue (units unknown) (unknown) (unknown) (no date) (unknown) (unknown) Spinal Cord:? Conus medullaris terminates at the L1 level.? Visualized cord (units unknown) (unknown) (unknown) (no date) (unknown) (unknown) Standing: incr eased leg and back pain (units unknown) (unknown) (unknown) (no date) (unknown) (unknown) Stat lumbar MR I was done on 06/28/2022 which did not show any acute (units unknown) (unknown) (unknown) (no date) (unknown) (unknown) Surgery: Patie nt is s/p L3-S1 posterior instrumented fusion in 2012 (units unknown) (unknown) (unknown) (no date) (unknown) (unknown) T12 compressio n fracture is unchanged. (units unknown) (unknown) (unknown) (no date) (unknown) (unknown) T12-L1:? Disc space is preserved.? No central or foraminal stenosis. (units unknown) (unknown) (unknown) (no date) (unknown) (unknown) TECHNIQUE:? 2 views of the lumbar spine were acquired.? (units unknown) (unknown) (unknown) (no date) (unknown) (unknown) TECHNIQUE:? (units unknown) (unknown) (unknown) (no date) (unknown) (unknown) Temp 98.3 F (units unknown) (unknown) (unknown) (no date) (unknown) (unknown) Temp Source Te mporal Artery Scan (units unknown) (unknown) (unknown) (no date) (unknown) (unknown) [facility] (units unknown) (unknown) (unknown) (no date) (unknown) (unknown) This note may have been all or partially generated using voice recognition (units unknown) (unknown) (unknown) (no date) (unknown) (unknown) Tobacco + Subs tance Use (units unknown) (unknown) (unknown) (no date) (unknown) (unknown) Tobacco Status (unit s unknown) (unknown) (unknown) (no date) (unknown) (unknown) Today I have r eviewed available medical information in the patient's medical (units unknown) (unknown) (unknown) (no date) (unknown) (unknown) Visit Reasons: Follow Up ED (units unknown) (unknown) (unknown) (no date) (unknown) (unknown) Vitals (units unknown) (unknown) (unknown) (no date) (unknown) (unknown) Walking: incre ased leg and back pain (units unknown) (unknown) (unknown) (no date) (unknown) (unknown) [place] Prescription Monitoring Program (RN LABOR AND DELIVERY) was reviewed. (units unknown) (unknown) (unknown) (no date) (unknown) (unknown) We reviewed et iology, predisposing factor(s), natural course, imaging results as (units unknown) (unknown) (unknown) (no date) (unknown) (unknown) Weakness: denies (un its unknown) (unknown) (unknown) (no date) (unknown) (unknown) Weight 249 lb 6 oz ( units unknown) (unknown) (unknown) (no date) (unknown) (unknown) abnormalities. He saw his neurosurgeon on 06/30/22. (units unknown) (unknown) (unknown) (no date) (unknown) (unknown) benefits of va rious treatment options were discussed with the patient in great (units unknown) (unknown) (unknown) (no date) (unknown) (unknown) bilateral fora solo stenosis (units unknown) (unknown) (unknown) (no date) (unknown) (unknown) bilateral test icles R>L (units unknown) (unknown) (unknown) (no date) (unknown) (unknown) bowel/bladder dysfunction, and perineal numbness were discussed. The patient was (units unknown) (unknown) (unknown) (no date) (unknown) (unknown) calcifications.? (un its unknown) (unknown) (unknown) (no date) (unknown) (unknown) cannot tolerat e physical therapy at the current time due to the intensity of the (units unknown) (unknown) (unknown) (no date) (unknown) (unknown) central stenosis. (u nits unknown) (unknown) (unknown) (no date) (unknown) (unknown) central stenos is.? Hypertrophic facet joints contribute to moderate bilateral (units unknown) (unknown) (unknown) (no date) (unknown) (unknown) change from (units unknown) (unknown) (unknown) (no date) (unknown) (unknown) demonstrates (units unknown) (unknown) (unknown) (no date) (unknown) (unknown) detail. (units unknown) (unknown) (unknown) (no date) (unknown) (unknown) duloxetine 60 mg capsule,delayed release 60 mg PO DAILY 06/14/22 [History (units unknown) (unknown) (unknown) (no date) (unknown) (unknown) evaluation of chronic low back pain with radiation to bilateral lower (units unknown) (unknown) (unknown) (no date) (unknown) (unknown) extremities.? He has a complicated history of low back pain including multiple (units unknown) (unknown) (unknown) (no date) (unknown) (unknown) ferrous sulfat e 325 mg (65 mg iron) tablet 325 mg PO DAILY 07/03/22 [History (units unknown) (unknown) (unknown) (no date) (unknown) (unknown) foraminal (units unknown) (unknown) (unknown) (no date) (unknown) (unknown) from prior exam (uni ts unknown) (unknown) (unknown) (no date) (unknown) (unknown) have occurred. If there are any questions, please contact the Medical Records (units unknown) (unknown) (unknown) (no date) (unknown) (unknown) improved sleep , improved mobility, etc. (units unknown) (unknown) (unknown) (no date) (unknown) (unknown) in PT. [] (units unknown) (unknown) (unknown) (no date) (unknown) (unknown) instructed to report to the Emergency department, if these symptoms occur. (units unknown) (unknown) (unknown) (no date) (unknown) (unknown) instructed to stop if any side effects. [] (units unknown) (unknown) (unknown) (no date) (unknown) (unknown) instrumentatio n, stable (units unknown) (unknown) (unknown) (no date) (unknown) (unknown) interested in starting physical therapy and a referral was placed to her auto in (units unknown) (unknown) (unknown) (no date) (unknown) (unknown) intravenous dr ug use, sustained glucocorticoid use, osteoporosis, or a focal (units unknown) (unknown) (unknown) (no date) (unknown) (unknown) local anesthet ic. During that time patient able to participate in ADLs, had (units unknown) (unknown) (unknown) (no date) (unknown) (unknown) lumbar spine operations as well as multiple pain injections.? He notes good (units unknown) (unknown) (unknown) (no date) (unknown) (unknown) may be performed.? ( units unknown) (unknown) (unknown) (no date) (unknown) (unknown) may occur. Occ asional wrong-word or 'sound-alike' substitutions may have (units unknown) (unknown) (unknown) (no date) (unknown) (unknown) meds. [] (units unknown) (unknown) (unknown) (no date) (unknown) (unknown) methocarbamol 750 mg tablet 750 mg PO Q8H PRN muscle pain #30 tabs 06/07/22 [Rx (units unknown) (unknown) (unknown) (no date) (unknown) (unknown) milk Allergy ( Mild, Verified 07/03/22 08:21) (units unknown) (unknown) (unknown) (no date) (unknown) (unknown) neurological d eficit with progressive or disabling symptoms. (units unknown) (unknown) (unknown) (no date) (unknown) (unknown) normal signal and size.? (units unknown) (unknown) (unknown) (no date) (unknown) (unknown) occurred due t o the inherent limitations of voice recognition software. Please (units unknown) (unknown) (unknown) (no date) (unknown) (unknown) omeprazole 20 mg capsule,delayed release 20 mg PO DAILY 06/14/22 [History (units unknown) (unknown) (unknown) (no date) (unknown) (unknown) or immunosuppr essive therapy, previous or current cancer diagnosis, history of (units unknown) (unknown) (unknown) (no date) (unknown) (unknown) pain resolved within he complained of left lower leg as well as foot numbness. (units unknown) (unknown) (unknown) (no date) (unknown) (unknown) pain. [] (units unknown) (unknown) (unknown) (no date) (unknown) (unknown) pregabalin 200 mg capsule 200 mg PO TID 06/14/22 [History Confirmed 07/03/22] (units unknown) (unknown) (unknown) (no date) (unknown) (unknown) read the note carefully and recognize, using context, where these substitutions (units unknown) (unknown) (unknown) (no date) (unknown) (unknown) record, includ ing relevant provider notes, laboratory work, and imaging. (units unknown) (unknown) (unknown) (no date) (unknown) (unknown) relief after S 1 transforaminal MARI in the past.? He would likely benefit from a (units unknown) (unknown) (unknown) (no date) (unknown) (unknown) repeat bilater al S1 transforaminal epidural steroid injection.? He is also (units unknown) (unknown) (unknown) (no date) (unknown) (unknown) jules and (units unknown) (unknown) (unknown) (no date) (unknown) (unknown) scale and/or p ain interferes with ADLs. 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 (units unknown) (unknown) (unknown) (no date) (unknown) (unknown) severe (units unknown) (unknown) (unknown) (no date) (unknown) (unknown) software. Alth ough every effort is made to edit content, manager inside errors (units unknown) (unknown) (unknown) (no date) (unknown) (unknown) spin echo (units unknown) (unknown) (unknown) (no date) (unknown) (unknown) stable.? 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 T12 compression fracture, (units unknown) (unknown) (unknown) (no date) (unknown) (unknown) stenosis (units unknown) (unknown) (unknown) (no date) (unknown) (unknown) stenosis.? Mild (uni ts unknown) (unknown) (unknown) (no date) (unknown) (unknown) stenosis.? (units unknown) (unknown) (unknown) (no date) (unknown) (unknown) stimulator for chronic low back pain.' (units unknown) (unknown) (unknown) (no date) (unknown) (unknown) the prior exam .? No retropulsed fracture fragment. (units unknown) (unknown) (unknown) (no date) (unknown) (unknown) therapeutic in jections and surgery. The risks, consequences, alternatives and (units unknown) (unknown) (unknown) (no date) (unknown) (unknown) therapy. ?A re ferral was provided for the patient. [] (units unknown) (unknown) (unknown) (no date) (unknown) (unknown) through the [facility] spine.? In cases with scoliosis, additional coronal T2 fast (units unknown) (unknown) (unknown) (no date) (unknown) (unknown) tizanidine 2 m g capsule 2 mg PO Q8H PRN 07/03/22 [History Confirmed 07/03/22] (units unknown) (unknown) (unknown) (no date) (unknown) (unknown) to severe (units unknown) (unknown) (unknown) (no date) (unknown) (unknown) tramadol 50 mg tablet 50 mg PO TID PRN pain #30 tabs 06/14/22 [Rx Confirmed (units unknown) (unknown) (unknown) (no date) (unknown) (unknown) tramadol for short-term use.? He is currently being evaluated for spinal cord (units unknown) (unknown) (unknown) (no date) (unknown) (unknown) transforaminal MARI. After the injection he noted increased low back pain. This (units unknown) (unknown) (unknown) (no date) (unknown) (unknown) unchanged.? (units unknown) (unknown) (unknown) (no date) (unknown) (unknown) visit. (units unknown) (unknown) (unknown) (no date) (unknown) (unknown) well as treatm ent options including medications, physical therapy/exercise, (units unknown) (unknown) (unknown) (no date) (unknown) (unknown) with future tr eatment planning. [] (units unknown) (unknown) Result panel 48 (unknown) (no date) (unknown) (unknown) (no value) (units unknown) (unknown) (unknown) (no date) (unknown) (unknown) - Activity: Co ntinue activity as tolerated. [] (units unknown) (unknown) (unknown) (no date) (unknown) (unknown) - Chiropractor , acupuncture[] (units unknown) (unknown) (unknown) (no date) (unknown) (unknown) - Continues cl inician directed home exercise program including exercises learned (units unknown) (unknown) (unknown) (no date) (unknown) (unknown) - Education: C auda equina and associated symptoms, including motor weakness, (units unknown) (unknown) (unknown) (no date) (unknown) (unknown) - Follow-up: [] (uni ts unknown) (unknown) (unknown) (no date) (unknown) (unknown) - I discussed risks, benefits and side effects. Additionally, patient was (units unknown) (unknown) (unknown) (no date) (unknown) (unknown) - Imaging: No new imaging indicated at this time. [] (units unknown) (unknown) (unknown) (no date) (unknown) (unknown) - Interventional/Surgica l procedures: None indicated at this time. [] (units unknown) (unknown) (unknown) (no date) (unknown) (unknown) - Medications: No new prescription at this time. Patient will continue current (units unknown) (unknown) (unknown) (no date) (unknown) (unknown) - Medications: acetaminophen, NSAIDS, neuropathics, muscle relaxants [] (units unknown) (unknown) (unknown) (no date) (unknown) (unknown) - Physical The rapy: Completed 6 week course in the last 6 months OR Patient (units unknown) (unknown) (unknown) (no date) (unknown) (unknown) - Physical therapy/modalities/DME : Patient will likely benefit from physical (units unknown) (unknown) (unknown) (no date) (unknown) (unknown) - Prescription provided and uptitration instructions given if necessary. [] (units unknown) (unknown) (unknown) (no date) (unknown) (unknown) - Previous [] on [] provided []% relief of pain for the expected duration of the (units unknown) (unknown) (unknown) (no date) (unknown) (unknown) - Referrals: N one indicated at this time. [] (units unknown) (unknown) (unknown) (no date) (unknown) (unknown) -to-moderate b ilateral foraminal stenosis (units unknown) (unknown) (unknown) (no date) (unknown) (unknown) 07/03/22 (units unknown) (unknown) (unknown) (no date) (unknown) (unknown) 07/03/22] (units unknown) (unknown) (unknown) (no date) (unknown) (unknown) 09:09 (units unknown) (unknown) (unknown) (no date) (unknown) (unknown) 05/22/2021, 2:31.? (u nits unknown) (unknown) (unknown) (no date) (unknown) (unknown) 990 (units unknown) (unknown) (unknown) (no date) (unknown) (unknown) ? (units unknown) (unknown) (unknown) (no date) (unknown) (unknown) ? Acetaminophen (units unknown) (unknown) (unknown) (no date) (unknown) (unknown) ? Antidepressants (units unknown) (unknown) (unknown) (no date) (unknown) (unknown) ? Antiepileptics (units unknown) (unknown) (unknown) (no date) (unknown) (unknown) ? Mu scle Relaxants (units unknown) (unknown) (unknown) (no date) (unknown) (unknown) ? NSAIDs ( units unknown) (unknown) (unknown) (no date) (unknown) (unknown) ? Opioids (units unknown) (unknown) (unknown) (no date) (unknown) (unknown) ? Steroids (units unknown) (unknown) (unknown) (no date) (unknown) (unknown) ? Topicals (units unknown) (unknown) (unknown) (no date) (unknown) (unknown) Accompanied by : Self / Same As Patient (units unknown) (unknown) (unknown) (no date) (unknown) (unknown) Age/Sex: 47 / M Date of Service: (units unknown) (unknown) (unknown) (no date) (unknown) (unknown) Aggravating fa ctors include: multiple body positions (units unknown) (unknown) (unknown) (no date) (unknown) (unknown) Alignment and Curvature:? There is normal bony alignment.? (units unknown) (unknown) (unknown) (no date) (unknown) (unknown) All other syst ems reviewed and are unremarkable except as noted in HPI. (units unknown) (unknown) (unknown) (no date) (unknown) (unknown) Allergies (units unknown) (unknown) (unknown) (no date) (unknown) (unknown) [place] [id number] (units unknown) (unknown) (unknown) (no date) (unknown) (unknown) Approved by: Vale Aden M.D. on 06/07/2022 at 14:37? (units unknown) (unknown) (unknown) (no date) (unknown) (unknown) Approved by: Fercho Khan M.D. on 06/04/2022 at 21:57 ? (units unknown) (unknown) (unknown) (no date) (unknown) (unknown) Assessment + Plan (u nits unknown) (unknown) (unknown) (no date) (unknown) (unknown) Assessment: (units unknown) (unknown) (unknown) (no date) (unknown) (unknown) Attending Dr: Dhiraj Daigle MD (units unknown) (unknown) (unknown) (no date) (unknown) (unknown) B/L S1 TFESI ( Dr. Blair) 05/26/2021 ? Improved pain for 1 month (units unknown) (unknown) (unknown) (no date) (unknown) (unknown) BMI 33.8 (units unknown) (unknown) (unknown) (no date) (unknown) (unknown) BP 116/66 (units unknown) (unknown) (unknown) (no date) (unknown) (unknown) Blood Pressure Location Rt brachial (units unknown) (unknown) (unknown) (no date) (unknown) (unknown) Bone Marrow:? Wedge-shaped compression fracture T12 without marrow edema or (units unknown) (unknown) (unknown) (no date) (unknown) (unknown) Bones:? 5 hni-[id number]-[id number] vertebrae are present.? Pedicle screw fixation at L3 (units unknown) (unknown) (unknown) (no date) (unknown) (unknown) Bowel and blad kael: No loss of control (units unknown) (unknown) (unknown) (no date) (unknown) (unknown) COMPARISON:? [facility], MR, MR LUMBAR SPINE WO CON, 03/09/2022, 20:09. (units unknown) (unknown) (unknown) (no date) (unknown) (unknown) COMPARISON:? [facility], CR, XR LUMBAR SPINE 2 OR 3 VIEWS, (units unknown) (unknown) (unknown) (no date) (unknown) (unknown) Caudal ? No improvement (units unknown) (unknown) (unknown) (no date) (unknown) (unknown) Chart review: (units unknown) (unknown) (unknown) (no date) (unknown) (unknown) Chief Complaint (uni ts unknown) (unknown) (unknown) (no date) (unknown) (unknown) Chief Complain t: Follow-up (units unknown) (unknown) (unknown) (no date) (unknown) (unknown) Chronic T12 compression fracture without retropulsed fracture fragment (units unknown) (unknown) (unknown) (no date) (unknown) (unknown) Confirmed 07/03/22] (units unknown) (unknown) (unknown) (no date) (unknown) (unknown) Conservative management includes: (units unknown) (unknown) (unknown) (no date) (unknown) (unknown) Continue [facility] physical therapy. [] (units unknown) (unknown) (unknown) (no date) (unknown) (unknown) Continue home exercise program. 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 (units unknown) (unknown) (unknown) (no date) (unknown) (unknown) Details: (units unknown) (unknown) (unknown) (no date) (unknown) (unknown) Dictated by: Fercho Khan M.D. on 06/04/2022 at 21:55 ? ? (units unknown) (unknown) (unknown) (no date) (unknown) (unknown) Documented By: Dhiraj Daigle MD 07/03/22 0803 (units unknown) (unknown) (unknown) (no date) (unknown) (unknown) Draft (units unknown) (unknown) (unknown) (no date) (unknown) (unknown) Duloxetine 60 mg (un its unknown) (unknown) (unknown) (no date) (unknown) (unknown) FINDINGS:? (units unknown) (unknown) (unknown) (no date) (unknown) (unknown) Follow Up ED x 4 [2 visits at , 2 at [place]] (units unknown) (unknown) (unknown) (no date) (unknown) (unknown) HPI (units unknown) (unknown) (unknown) (no date) (unknown) (unknown) He went to the ED at [facility] twice as well as an outside hospital twice. (units unknown) (unknown) (unknown) (no date) (unknown) (unknown) Height 6 ft (units unknown) (unknown) (unknown) (no date) (unknown) (unknown) IMPRESSION:? (units unknown) (unknown) (unknown) (no date) (unknown) (unknown) INDICATIONS:? New lower extremity weakness, pain exacerbation after twist (units unknown) (unknown) (unknown) (no date) (unknown) (unknown) INDICATIONS:? hx of multiple back surgeries with pain after fall (units unknown) (unknown) (unknown) (no date) (unknown) (unknown) Image quality: ? Excellent.? (units unknown) (unknown) (unknown) (no date) (unknown) (unknown) In regards to his left leg, he continues to have left calf and entire left foot (units unknown) (unknown) (unknown) (no date) (unknown) (unknown) Injections: (units unknown) (unknown) (unknown) (no date) (unknown) (unknown) Intake Clinical Staf f (units unknown) (unknown) (unknown) (no date) (unknown) (unknown) Intake Note: (units unknown) (unknown) (unknown) (no date) (unknown) (unknown) Intake perform ed by: Paoal Whitfield (units unknown) (unknown) (unknown) (no date) (unknown) (unknown) Intake (units unknown) (unknown) (unknown) (no date) (unknown) (unknown) Interval History: (u nits unknown) (unknown) (unknown) (no date) (unknown) (unknown) Intervention:?Date:?Outcome:?? ? (units unknown) (unknown) (unknown) (no date) (unknown) (unknown) Is patient in pain?: Yes Pain scale (1-10): 6 (units unknown) (unknown) (unknown) (no date) (unknown) (unknown) [facility], MR, MR LUMBAR SPINE WO [facility], 03/09/2022, 20:09. (units unknown) (unknown) (unknown) (no date) (unknown) (unknown) JUSTIFICATION OF MEDICAL NECESSITY (units unknown) (unknown) (unknown) (no date) (unknown) (unknown) L-spine/T-spin e/C-spin e MRI ordered to better delineate the anatomy and help (units unknown) (unknown) (unknown) (no date) (unknown) (unknown) L1-L2:? Disc s pace is preserved.? No central or foraminal stenosis (units unknown) (unknown) (unknown) (no date) (unknown) (unknown) L2-L3:? Disc s pace narrowing and circumferential disc bulge results in moderate (units unknown) (unknown) (unknown) (no date) (unknown) (unknown) L3, L4 and L5 decompressive laminectomies with interbody fusion and posterior (units unknown) (unknown) (unknown) (no date) (unknown) (unknown) L3-L4:? Discec madonna and fusion with posterior decompression.? No central (units unknown) (unknown) (unknown) (no date) (unknown) (unknown) L4-L5:? Discec maodnna and fusion with posterior decompression.? No central (units unknown) (unknown) (unknown) (no date) (unknown) (unknown) L5-S1:? Discec madonna and fusion with posterior decompression.? No central (units unknown) (unknown) (unknown) (no date) (unknown) (unknown) Lidoderm patch - stopped due to skin irritation (units unknown) (unknown) (unknown) (no date) (unknown) (unknown) Loc: PAIN (units unknown) (unknown) (unknown) (no date) (unknown) (unknown) Lower lumbar s pine interbody fusion, posterior decompression and (units unknown) (unknown) (unknown) (no date) (unknown) (unknown) Lumbar radiculopathy (units unknown) (unknown) (unknown) (no date) (unknown) (unknown) Lumbar spine f ixation appears stable. (units unknown) (unknown) (unknown) (no date) (unknown) (unknown) Lyrica 200 mg b.i.d. (units unknown) (unknown) (unknown) (no date) (unknown) (unknown) MRI 06/28/22 (units unknown) (unknown) (unknown) (no date) (unknown) (unknown) MSK: System re viewed and no additional complaints, except as documented. (units unknown) (unknown) (unknown) (no date) (unknown) (unknown) Medical Histor y (units unknown) (unknown) (unknown) (no date) (unknown) (unknown) Medications (units unknown) (unknown) (unknown) (no date) (unknown) (unknown) Medications: (units unknown) (unknown) (unknown) (no date) (unknown) (unknown) Moderate left and right foraminal stenosis (units unknown) (unknown) (unknown) (no date) (unknown) (unknown) Neuro: System reviewed and no additional complaints, except as documented. (units unknown) (unknown) (unknown) (no date) (unknown) (unknown) No suspicious bony lesions.? (units unknown) (unknown) (unknown) (no date) (unknown) (unknown) Noncontrast sa gittal T1 spin echo and T2 fast echo, sagittal STIR, and T2 fast (units unknown) (unknown) (unknown) (no date) (unknown) (unknown) Not indicated at this time. [] (units unknown) (unknown) (unknown) (no date) (unknown) (unknown) Numbness/Tingl ing: left calf and left foot numbness (units unknown) (unknown) (unknown) (no date) (unknown) (unknown) [employer].? H e requested a refill of Lidoderm patches we will also start (units unknown) (unknown) (unknown) (no date) (unknown) (unknown) Objective Data (unit s unknown) (unknown) (unknown) (no date) (unknown) (unknown) Objective Data: (uni ts unknown) (unknown) (unknown) (no date) (unknown) (unknown) Onset/Context of parish n: (units unknown) (unknown) (unknown) (no date) (unknown) (unknown) Onset: insidio us, exacerbated by recent fall (units unknown) (unknown) (unknown) (no date) (unknown) (unknown) Other: acupuncture ( units unknown) (unknown) (unknown) (no date) (unknown) (unknown) Oxygen Deliver y Method room air (units unknown) (unknown) (unknown) (no date) (unknown) (unknown) PFSH (units unknown) (unknown) (unknown) (no date) (unknown) (unknown) PROCEDURE:? MR LUMBAR SPINE WO CON (units unknown) (unknown) (unknown) (no date) (unknown) (unknown) PROCEDURE:? XR LUMBAR SPINE 2-3V (units unknown) (unknown) (unknown) (no date) (unknown) (unknown) PT: Last PT wa s about 2 months ago in [place] (units unknown) (unknown) (unknown) (no date) (unknown) (unknown) Pain Scale (units unknown) (unknown) (unknown) (no date) (unknown) (unknown) Pain Visit (units unknown) (unknown) (unknown) (no date) (unknown) (unknown) Pain location/Radiation: Back - 'in my back'; Bilateral legs; squeezing of (units unknown) (unknown) (unknown) (no date) (unknown) (unknown) Pain ratin /10 today, 10/10 at worst (units unknown) (unknown) (unknown) (no date) (unknown) (unknown) Paraspinous So ft Tissues:? No paravertebral masses.? (units unknown) (unknown) (unknown) (no date) (unknown) (unknown) Past medical, surgical, social, and family history is unchanged from prior (units unknown) (unknown) (unknown) (no date) (unknown) (unknown) Patient was dawson mark seen here on 06/22/2022 at which time he had bilateral S1 (units unknown) (unknown) (unknown) (no date) (unknown) (unknown) Patient will r eturn for []. Risks and benefits were discussed. (units unknown) (unknown) (unknown) (no date) (unknown) (unknown) Patient's pain has been present for >6 weeks and is an average of >6/10 on 0-10 (units unknown) (unknown) (unknown) (no date) (unknown) (unknown) Patient: Kishor Carrasquillo MR#: [id number] (units unknown) (unknown) (unknown) (no date) (unknown) (unknown) Pertinent medi cations include: (units unknown) (unknown) (unknown) (no date) (unknown) (unknown) Plan (units unknown) (unknown) (unknown) (no date) (unknown) (unknown) Plan/Recommendations : (units unknown) (unknown) (unknown) (no date) (unknown) (unknown) Position Sitting (un its unknown) (unknown) (unknown) (no date) (unknown) (unknown) Prescriptions Written: [] (units unknown) (unknown) (unknown) (no date) (unknown) (unknown) Previous Visit Assessment: Kelsey is a 47-year-old male presenting for further (units unknown) (unknown) (unknown) (no date) (unknown) (unknown) Previous pain treatments included: (units unknown) (unknown) (unknown) (no date) (unknown) (unknown) Pulse 87 (units unknown) (unknown) (unknown) (no date) (unknown) (unknown) Pulse Oximetry (%) 9 8 (units unknown) (unknown) (unknown) (no date) (unknown) (unknown) Pulse Source Monitor (units unknown) (unknown) (unknown) (no date) (unknown) (unknown) Quality and ti gerri of pain: (units unknown) (unknown) (unknown) (no date) (unknown) (unknown) ROS Narrative (units unknown) (unknown) (unknown) (no date) (unknown) (unknown) ROS Narrative: (unit s unknown) (unknown) (unknown) (no date) (unknown) (unknown) ROS (units unknown) (unknown) (unknown) (no date) (unknown) (unknown) Reason For Visit (un its unknown) (unknown) (unknown) (no date) (unknown) (unknown) Red flag symptoms: ( units unknown) (unknown) (unknown) (no date) (unknown) (unknown) Relieving fact ors include: changing positions, laying down (units unknown) (unknown) (unknown) (no date) (unknown) (unknown) S/P S1 TF MARI (units unknown) (unknown) (unknown) (no date) (unknown) (unknown) S1 appears (units unknown) (unknown) (unknown) (no date) (unknown) (unknown) Saddle anesthe marina: denies (units unknown) (unknown) (unknown) (no date) (unknown) (unknown) Signed By: (units unknown) (unknown) (unknown) (no date) (unknown) (unknown) Smoking Status : Never smoker (units unknown) (unknown) (unknown) (no date) (unknown) (unknown) Soft tissues:? Overlying bowel gas pattern is normal.? No suspicious soft tissue (units unknown) (unknown) (unknown) (no date) (unknown) (unknown) Spinal Cord:? Conus medullaris terminates at the L1 level.? Visualized cord (units unknown) (unknown) (unknown) (no date) (unknown) (unknown) Standing: incr eased leg and back pain (units unknown) (unknown) (unknown) (no date) (unknown) (unknown) Stat lumbar MR I was done on 06/28/2022 which did not show any acute (units unknown) (unknown) (unknown) (no date) (unknown) (unknown) Surgery: Annmarie nt is s/p L3-S1 posterior instrumented fusion in 2012 (units unknown) (unknown) (unknown) (no date) (unknown) (unknown) T12 compressio n fracture is unchanged. (units unknown) (unknown) (unknown) (no date) (unknown) (unknown) T12-L1:? Disc space is preserved.? No central or foraminal stenosis. (units unknown) (unknown) (unknown) (no date) (unknown) (unknown) TECHNIQUE:? 2 views of the lumbar spine were acquired.? (units unknown) (unknown) (unknown) (no date) (unknown) (unknown) TECHNIQUE:? (units unknown) (unknown) (unknown) (no date) (unknown) (unknown) Temp 98.3 F (units unknown) (unknown) (unknown) (no date) (unknown) (unknown) Temp Source Te mporal Artery Scan (units unknown) (unknown) (unknown) (no date) (unknown) (unknown) [facility] (units unknown) (unknown) (unknown) (no date) (unknown) (unknown) This note may have been all or partially generated using voice recognition (units unknown) (unknown) (unknown) (no date) (unknown) (unknown) Tizanidine 2 m g Q8hr PRN (units unknown) (unknown) (unknown) (no date) (unknown) (unknown) Tobacco + Subs tance Use (units unknown) (unknown) (unknown) (no date) (unknown) (unknown) Tobacco Status (unit s unknown) (unknown) (unknown) (no date) (unknown) (unknown) Today I have r eviewed available medical information in the patient's medical (units unknown) (unknown) (unknown) (no date) (unknown) (unknown) Tramadol 50 mg TID ( units unknown) (unknown) (unknown) (no date) (unknown) (unknown) Visit Reasons: Follow Up ED (units unknown) (unknown) (unknown) (no date) (unknown) (unknown) Vitals (units unknown) (unknown) (unknown) (no date) (unknown) (unknown) Walking: incre ased leg and back pain (units unknown) (unknown) (unknown) (no date) (unknown) (unknown) [place] Prescription Monitoring Program (RN LABOR AND DELIVERY) was reviewed. (units unknown) (unknown) (unknown) (no date) (unknown) (unknown) We reviewed et iology, predisposing factor(s), natural course, imaging results as (units unknown) (unknown) (unknown) (no date) (unknown) (unknown) Weakness: denies (un its unknown) (unknown) (unknown) (no date) (unknown) (unknown) Weight 249 lb 6 oz ( units unknown) (unknown) (unknown) (no date) (unknown) (unknown) abnormalities. He saw his neurosurgeon on 06/30/22. He notes that surgery is (units unknown) (unknown) (unknown) (no date) (unknown) (unknown) benefits of va rious treatment options were discussed with the patient in great (units unknown) (unknown) (unknown) (no date) (unknown) (unknown) bilateral fora solo stenosis (units unknown) (unknown) (unknown) (no date) (unknown) (unknown) bilateral test icles R>L (units unknown) (unknown) (unknown) (no date) (unknown) (unknown) bowel/bladder dysfunction, and perineal numbness were discussed. The patient was (units unknown) (unknown) (unknown) (no date) (unknown) (unknown) calcifications.? (un its unknown) (unknown) (unknown) (no date) (unknown) (unknown) cannot tolerat e physical therapy at the current time due to the intensity of the (units unknown) (unknown) (unknown) (no date) (unknown) (unknown) central stenosis. (u nits unknown) (unknown) (unknown) (no date) (unknown) (unknown) central stenos is.? Hypertrophic facet joints contribute to moderate bilateral (units unknown) (unknown) (unknown) (no date) (unknown) (unknown) change from (units unknown) (unknown) (unknown) (no date) (unknown) (unknown) computer. He s tarts PT later this month. (units unknown) (unknown) (unknown) (no date) (unknown) (unknown) demonstrates (units unknown) (unknown) (unknown) (no date) (unknown) (unknown) detail. (units unknown) (unknown) (unknown) (no date) (unknown) (unknown) down the left buttock, posterior thigh/calf. He notes strength has been (units unknown) (unknown) (unknown) (no date) (unknown) (unknown) duloxetine 60 mg capsule,delayed release 60 mg PO DAILY 06/14/22 [History (units unknown) (unknown) (unknown) (no date) (unknown) (unknown) evaluation of chronic low back pain with radiation to bilateral lower (units unknown) (unknown) (unknown) (no date) (unknown) (unknown) extremities.? He has a complicated history of low back pain including multiple (units unknown) (unknown) (unknown) (no date) (unknown) (unknown) ferrous sulfat e 325 mg (65 mg iron) tablet 325 mg PO DAILY 07/03/22 [History (units unknown) (unknown) (unknown) (no date) (unknown) (unknown) foraminal (units unknown) (unknown) (unknown) (no date) (unknown) (unknown) from prior exam (uni ts unknown) (unknown) (unknown) (no date) (unknown) (unknown) have occurred. If there are any questions, please contact the Medical Records (units unknown) (unknown) (unknown) (no date) (unknown) (unknown) improved sleep , improved mobility, etc. (units unknown) (unknown) (unknown) (no date) (unknown) (unknown) in PT. [] (units unknown) (unknown) (unknown) (no date) (unknown) (unknown) instructed to report to the Emergency department, if these symptoms occur. (units unknown) (unknown) (unknown) (no date) (unknown) (unknown) instructed to stop if any side effects. [] (units unknown) (unknown) (unknown) (no date) (unknown) (unknown) instrumentatio n, stable (units unknown) (unknown) (unknown) (no date) (unknown) (unknown) interested in starting physical therapy and a referral was placed to her auto in (units unknown) (unknown) (unknown) (no date) (unknown) (unknown) intravenous dr ug use, sustained glucocorticoid use, osteoporosis, or a focal (units unknown) (unknown) (unknown) (no date) (unknown) (unknown) local anesthet ic. During that time patient able to participate in ADLs, had (units unknown) (unknown) (unknown) (no date) (unknown) (unknown) lumbar spine operations as well as multiple pain injections.? He notes good (units unknown) (unknown) (unknown) (no date) (unknown) (unknown) may be performed.? ( units unknown) (unknown) (unknown) (no date) (unknown) (unknown) may occur. Occ asional wrong-word or 'sound-alike' substitutions may have (units unknown) (unknown) (unknown) (no date) (unknown) (unknown) meds. [] (units unknown) (unknown) (unknown) (no date) (unknown) (unknown) methocarbamol 750 mg tablet 750 mg PO Q8H PRN muscle pain #30 tabs 06/07/22 [Rx (units unknown) (unknown) (unknown) (no date) (unknown) (unknown) milk Allergy ( Mild, Verified 07/03/22 08:21) (units unknown) (unknown) (unknown) (no date) (unknown) (unknown) neurological d eficit with progressive or disabling symptoms. (units unknown) (unknown) (unknown) (no date) (unknown) (unknown) normal signal and size.? (units unknown) (unknown) (unknown) (no date) (unknown) (unknown) numbness. He a lso notes a shooting pain starting in the left low back radiating (units unknown) (unknown) (unknown) (no date) (unknown) (unknown) occurred due t o the inherent limitations of voice recognition software. Please (units unknown) (unknown) (unknown) (no date) (unknown) (unknown) omeprazole 20 mg capsule,delayed release 20 mg PO DAILY 06/14/22 [History (units unknown) (unknown) (unknown) (no date) (unknown) (unknown) or immunosuppr essive therapy, previous or current cancer diagnosis, history of (units unknown) (unknown) (unknown) (no date) (unknown) (unknown) pain resolved within he complained of left lower leg as well as foot numbness. (units unknown) (unknown) (unknown) (no date) (unknown) (unknown) pain. [] (units unknown) (unknown) (unknown) (no date) (unknown) (unknown) planned. There is concern for loose hardware. He is hoping to have the surgery (units unknown) (unknown) (unknown) (no date) (unknown) (unknown) pregabalin 200 mg capsule 200 mg PO TID 06/14/22 [History Confirmed 07/03/22] (units unknown) (unknown) (unknown) (no date) (unknown) (unknown) preserved. He is more careful with walking to avoid falls. He had an episode of (units unknown) (unknown) (unknown) (no date) (unknown) (unknown) read the note carefully and recognize, using context, where these substitutions (units unknown) (unknown) (unknown) (no date) (unknown) (unknown) record, includ ing relevant provider notes, laboratory work, and imaging. (units unknown) (unknown) (unknown) (no date) (unknown) (unknown) relief after S 1 transforaminal MARI in the past.? He would likely benefit from a (units unknown) (unknown) (unknown) (no date) (unknown) (unknown) repeat bilater al S1 transforaminal epidural steroid injection.? He is also (units unknown) (unknown) (unknown) (no date) (unknown) (unknown) jules and (units unknown) (unknown) (unknown) (no date) (unknown) (unknown) scale and/or p ain interferes with ADLs. 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 (units unknown) (unknown) (unknown) (no date) (unknown) (unknown) scrotal pain w hich has since resolved. 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 Alth ough every effort is made to edit content, manager inside errors (units unknown) (unknown) (unknown) (no date) (unknown) (unknown) spin echo (units unknown) (unknown) (unknown) (no date) (unknown) (unknown) stable.? 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 T12 compression fracture, (units unknown) (unknown) (unknown) (no date) (unknown) (unknown) stenosis (units unknown) (unknown) (unknown) (no date) (unknown) (unknown) stenosis.? Mild (uni ts unknown) (unknown) (unknown) (no date) (unknown) (unknown) stenosis.? (units unknown) (unknown) (unknown) (no date) (unknown) (unknown) stimulator for chronic low back pain.' (units unknown) (unknown) (unknown) (no date) (unknown) (unknown) the prior exam .? No retropulsed fracture fragment. (units unknown) (unknown) (unknown) (no date) (unknown) (unknown) therapeutic in jections and surgery. The risks, consequences, alternatives and (units unknown) (unknown) (unknown) (no date) (unknown) (unknown) therapy. ?A re ferral was provided for the patient. [] (units unknown) (unknown) (unknown) (no date) (unknown) (unknown) through the [facility] spine.? In cases with scoliosis, additional coronal T2 fast (units unknown) (unknown) (unknown) (no date) (unknown) (unknown) tizanidine 2 m g capsule 2 mg PO Q8H PRN 07/03/22 [History Confirmed 07/03/22] (units unknown) (unknown) (unknown) (no date) (unknown) (unknown) to severe (units unknown) (unknown) (unknown) (no date) (unknown) (unknown) tramadol 50 mg tablet 50 mg PO TID PRN pain #30 tabs 06/14/22 [Rx Confirmed (units unknown) (unknown) (unknown) (no date) (unknown) (unknown) tramadol for short-term use.? He is currently being evaluated for spinal cord (units unknown) (unknown) (unknown) (no date) (unknown) (unknown) transforaminal MARI. After the injection he noted increased low back pain. This (units unknown) (unknown) (unknown) (no date) (unknown) (unknown) unchanged.? (units unknown) (unknown) (unknown) (no date) (unknown) (unknown) visit. (units unknown) (unknown) (unknown) (no date) (unknown) (unknown) well as treatm ent options including medications, physical therapy/exercise, (units unknown) (unknown) (unknown) (no date) (unknown) (unknown) with future tr eatment planning. [] (units unknown) (unknown) (unknown) (no date) (unknown) (unknown) within the next antoinette h. (units unknown) (unknown) Result panel 49 (unknown) (no date) (unknown) (unknown) (no value) (units unknown) (unknown) (unknown) (no date) (unknown) (unknown) (0=absent, 1=s light response, 2=brisk/normal, 3=very brisk, 4=clonus) (units unknown) (unknown) (unknown) (no date) (unknown) (unknown) (1) Lumbar radiculopathy: (units unknown) (unknown) (unknown) (no date) (unknown) (unknown) (2) Chronic lo w back pain: (units unknown) (unknown) (unknown) (no date) (unknown) (unknown) (3) Fusion of lumbar spine: (units unknown) (unknown) (unknown) (no date) (unknown) (unknown) (4) Lumbar spi nal stenosis due to adjacent segment disease after fusion (units unknown) (unknown) (unknown) (no date) (unknown) (unknown) (segments are from the International Standards for Neurological Classification (units unknown) (unknown) (unknown) (no date) (unknown) (unknown) - Activity: Co ntinue activity as tolerated. (units unknown) (unknown) (unknown) (no date) (unknown) (unknown) - Education: C auda equina and associated symptoms, including motor weakness, (units unknown) (unknown) (unknown) (no date) (unknown) (unknown) - FADIR: Negat franklin bilaterally (units unknown) (unknown) (unknown) (no date) (unknown) (unknown) - Follow-up: 4 weeks or prior to lumbar surgery (units unknown) (unknown) (unknown) (no date) (unknown) (unknown) - Hip ROM is: Within normal limits (units unknown) (unknown) (unknown) (no date) (unknown) (unknown) - Imaging: No new imaging indicated at this time. (units unknown) (unknown) (unknown) (no date) (unknown) (unknown) - Interventional/Surgica l procedures: None indicated at this time. (units unknown) (unknown) (unknown) (no date) (unknown) (unknown) - Lumbar facet loading: Negative bilaterally (units unknown) (unknown) (unknown) (no date) (unknown) (unknown) - Medications: No new prescription at this time. Patient will continue current (units unknown) (unknown) (unknown) (no date) (unknown) (unknown) - Physical therapy/modalities/DME : Continue current physical therapy. (units unknown) (unknown) (unknown) (no date) (unknown) (unknown) - Referrals: N one indicated at this time. (units unknown) (unknown) (unknown) (no date) (unknown) (unknown) - SIJ provocat ion testing: Negative bilaterally (units unknown) (unknown) (unknown) (no date) (unknown) (unknown) - Straight Leg Raise: Increased pain bilaterally (units unknown) (unknown) (unknown) (no date) (unknown) (unknown) -to-moderate b ilateral foraminal stenosis (units unknown) (unknown) (unknown) (no date) (unknown) (unknown) 07/03/22 1025 (units unknown) (unknown) (unknown) (no date) (unknown) (unknown) 07/03/22 (units unknown) (unknown) (unknown) (no date) (unknown) (unknown) 07/03/22] (units unknown) (unknown) (unknown) (no date) (unknown) (unknown) 09:09 (units unknown) (unknown) (unknown) (no date) (unknown) (unknown) 05/22/2021, 2:31.? (u nits unknown) (unknown) (unknown) (no date) (unknown) (unknown) 990 (units unknown) (unknown) (unknown) (no date) (unknown) (unknown) ? Inspection - ? No gross appendicular or axial deformities (units unknown) (unknown) (unknown) (no date) (unknown) (unknown) ? Palpation -n o tenderness to palpation (units unknown) (unknown) (unknown) (no date) (unknown) (unknown) ? ROM -lumbar range of motion limited in all planes (units unknown) (unknown) (unknown) (no date) (unknown) (unknown) ? Special tests (uni ts unknown) (unknown) (unknown) (no date) (unknown) (unknown) ? (units unknown) (unknown) (unknown) (no date) (unknown) (unknown) ? Acetaminophen (units unknown) (unknown) (unknown) (no date) (unknown) (unknown) ? Antidepressants (units unknown) (unknown) (unknown) (no date) (unknown) (unknown) ? Antiepileptics (units unknown) (unknown) (unknown) (no date) (unknown) (unknown) ? Mu scle Relaxants (units unknown) (unknown) (unknown) (no date) (unknown) (unknown) ? NSAIDs ( units unknown) (unknown) (unknown) (no date) (unknown) (unknown) ? Opioids (units unknown) (unknown) (unknown) (no date) (unknown) (unknown) ? Steroids (units unknown) (unknown) (unknown) (no date) (unknown) (unknown) ? Topicals (units unknown) (unknown) (unknown) (no date) (unknown) (unknown) Accompanied by : Self / Same As Patient (units unknown) (unknown) (unknown) (no date) (unknown) (unknown) Age/Sex: 47 / M Date of Service: (units unknown) (unknown) (unknown) (no date) (unknown) (unknown) Aggravating fa ctors include: multiple body positions (units unknown) (unknown) (unknown) (no date) (unknown) (unknown) Alignment and Curvature:? There is normal bony alignment.? (units unknown) (unknown) (unknown) (no date) (unknown) (unknown) All other syst ems reviewed and are unremarkable except as noted in HPI. (units unknown) (unknown) (unknown) (no date) (unknown) (unknown) Allergies (units unknown) (unknown) (unknown) (no date) (unknown) (unknown) [place] [address] (units unknown) (unknown) (unknown) (no date) (unknown) (unknown) Approved by: Vale Aden M.D. on 06/07/2022 at 14:37? (units unknown) (unknown) (unknown) (no date) (unknown) (unknown) Approved by: Fercho Khan M.D. on 06/04/2022 at 21:57 ? (units unknown) (unknown) (unknown) (no date) (unknown) (unknown) Assessment + Plan (u nits unknown) (unknown) (unknown) (no date) (unknown) (unknown) Assessment: (units unknown) (unknown) (unknown) (no date) (unknown) (unknown) Attending Dr: Dhiraj Daigle MD (units unknown) (unknown) (unknown) (no date) (unknown) (unknown) B/L S1 TFESI ( Dr. Blair) 05/26/2021 ? Improved pain for 1 month (units unknown) (unknown) (unknown) (no date) (unknown) (unknown) BMI 33.8 (units unknown) (unknown) (unknown) (no date) (unknown) (unknown) BP 116/66 (units unknown) (unknown) (unknown) (no date) (unknown) (unknown) Babinski's Radha ngoing Downgoing (units unknown) (unknown) (unknown) (no date) (unknown) (unknown) Back pain late rality: bilateral Sciatica presence: with sciatica (units unknown) (unknown) (unknown) (no date) (unknown) (unknown) Blood Pressure Location Rt brachial (units unknown) (unknown) (unknown) (no date) (unknown) (unknown) Bone Marrow:? Wedge-shaped compression fracture T12 without marrow edema or (units unknown) (unknown) (unknown) (no date) (unknown) (unknown) Bones:? 5 [id number] vertebrae are present.? Pedicle screw fixation at L3 (units unknown) (unknown) (unknown) (no date) (unknown) (unknown) Bowel and blad kael: No loss of control (units unknown) (unknown) (unknown) (no date) (unknown) (unknown) COMPARISON:? [facility], MR, MR LUMBAR SPINE WO CON, 03/09/2022, 20:09. (units unknown) (unknown) (unknown) (no date) (unknown) (unknown) COMPARISON:? [facility], CR, XR LUMBAR SPINE 2 OR 3 VIEWS, (units unknown) (unknown) (unknown) (no date) (unknown) (unknown) Cardiovascular : No edema or cyanosis. 2+ peripheral pulses (units unknown) (unknown) (unknown) (no date) (unknown) (unknown) Caudal ? No improvement (units unknown) (unknown) (unknown) (no date) (unknown) (unknown) Chart review: (units unknown) (unknown) (unknown) (no date) (unknown) (unknown) Chief Complaint (uni ts unknown) (unknown) (unknown) (no date) (unknown) (unknown) Chief Complain t: Follow-up (units unknown) (unknown) (unknown) (no date) (unknown) (unknown) Chronic T12 compression fracture without retropulsed fracture fragment (units unknown) (unknown) (unknown) (no date) (unknown) (unknown) Chronic low back parish n (units unknown) (unknown) (unknown) (no date) (unknown) (unknown) Clonus None None (un its unknown) (unknown) (unknown) (no date) (unknown) (unknown) Confirmed 07/03/22] (units unknown) (unknown) (unknown) (no date) (unknown) (unknown) Current VAS: 08/05 (u nits unknown) (unknown) (unknown) (no date) (unknown) (unknown) : 5 Acct:[id number] (units unknown) (unknown) (unknown) (no date) (unknown) (unknown) 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 (units unknown) (unknown) (unknown) (no date) (unknown) (unknown) Details: (units unknown) (unknown) (unknown) (no date) (unknown) (unknown) Dictated by: Fercho Khan M.D. on 06/04/2022 at 21:55 ? ? (units unknown) (unknown) (unknown) (no date) (unknown) (unknown) Documented By: Dhiraj Daigle MD 07/03/22 1025 (units unknown) (unknown) (unknown) (no date) (unknown) (unknown) Duloxetine 60 mg (un its unknown) (unknown) (unknown) (no date) (unknown) (unknown) Exam Narrative (unit s unknown) (unknown) (unknown) (no date) (unknown) (unknown) Exam Narrative: (uni ts unknown) (unknown) (unknown) (no date) (unknown) (unknown) Exam (units unknown) (unknown) (unknown) (no date) (unknown) (unknown) FINDINGS:? (units unknown) (unknown) (unknown) (no date) (unknown) (unknown) Follow Up ED x 4 [2 visits at , 2 at [place]] (units unknown) (unknown) (unknown) (no date) (unknown) (unknown) Fusion of lumbar spi ne (units unknown) (unknown) (unknown) (no date) (unknown) (unknown) Gait/Station - Non-antalgic gait. Heel (L5 strength) and toe (S1 strength) (units unknown) (unknown) (unknown) (no date) (unknown) (unknown) General: Well-nourished, well-developed, male in no acute distress (units unknown) (unknown) (unknown) (no date) (unknown) (unknown) HPI (units unknown) (unknown) (unknown) (no date) (unknown) (unknown) He notes numbn ess of the left posterior calf as well as the entire left foot. (units unknown) (unknown) (unknown) (no date) (unknown) (unknown) He went to the ED at [facility] twice as well as an outside hospital twice. (units unknown) (unknown) (unknown) (no date) (unknown) (unknown) Height 6 ft (units unknown) (unknown) (unknown) (no date) (unknown) (unknown) IMPRESSION:? (units unknown) (unknown) (unknown) (no date) (unknown) (unknown) INDICATIONS:? New lower extremity weakness, pain exacerbation after twist (units unknown) (unknown) (unknown) (no date) (unknown) (unknown) INDICATIONS:? hx of multiple back surgeries with pain after fall (units unknown) (unknown) (unknown) (no date) (unknown) (unknown) Image quality: ? Excellent.? (units unknown) (unknown) (unknown) (no date) (unknown) (unknown) In regards to his left leg, he continues to have left calf and entire left foot (units unknown) (unknown) (unknown) (no date) (unknown) (unknown) Injections: (units unknown) (unknown) (unknown) (no date) (unknown) (unknown) Intake Clinical Staf f (units unknown) (unknown) (unknown) (no date) (unknown) (unknown) Intake Note: (units unknown) (unknown) (unknown) (no date) (unknown) (unknown) Intake perform ed by: Paola Whitfield (units unknown) (unknown) (unknown) (no date) (unknown) (unknown) Intake (units unknown) (unknown) (unknown) (no date) (unknown) (unknown) Interval History: (u nits unknown) (unknown) (unknown) (no date) (unknown) (unknown) Intervention:?Date:?Outcome:?? ? (units unknown) (unknown) (unknown) (no date) (unknown) (unknown) Is patient in pain?: Yes Pain scale (1-10): 6 (units unknown) (unknown) (unknown) (no date) (unknown) (unknown) [facility] l, MR, MR LUMBAR SPINE WO CON, 03/09/2022, 20:09. (units unknown) (unknown) (unknown) (no date) (unknown) (unknown) Kishor is presen ting for follow-up status post bilateral S1 transforaminal MARI. (units unknown) (unknown) (unknown) (no date) (unknown) (unknown) L1-L2:? Disc s pace is preserved.? No central or foraminal stenosis (units unknown) (unknown) (unknown) (no date) (unknown) (unknown) L2 Hip Flexion 5/5 5/5? (units unknown) (unknown) (unknown) (no date) (unknown) (unknown) L2-L3:? Disc s pace narrowing and circumferential disc bulge results in moderate (units unknown) (unknown) (unknown) (no date) (unknown) (unknown) L3 Knee Extens ion 5/5 5/5 (units unknown) (unknown) (unknown) (no date) (unknown) (unknown) L3, L4 and L5 decompressive laminectomies with interbody fusion and posterior (units unknown) (unknown) (unknown) (no date) (unknown) (unknown) L3-L4:? Discec madonna and fusion with posterior decompression.? No central (units unknown) (unknown) (unknown) (no date) (unknown) (unknown) L4 Ankle Dorsi flexion 5/5 5/5 (units unknown) (unknown) (unknown) (no date) (unknown) (unknown) L4 Patella 1+ 1 (uni ts unknown) (unknown) (unknown) (no date) (unknown) (unknown) L4-L5:? Discec madonna and fusion with posterior decompression.? No central (units unknown) (unknown) (unknown) (no date) (unknown) (unknown) L5 Long Toe Ex tension 5/5 5/5 (units unknown) (unknown) (unknown) (no date) (unknown) (unknown) L5-S1:? Discec madonna and fusion with posterior decompression.? No central (units unknown) (unknown) (unknown) (no date) (unknown) (unknown) Lidoderm patch - stopped due to skin irritation (units unknown) (unknown) (unknown) (no date) (unknown) (unknown) Loc: PAIN (units unknown) (unknown) (unknown) (no date) (unknown) (unknown) Lower lumbar s pine interbody fusion, posterior decompression and (units unknown) (unknown) (unknown) (no date) (unknown) (unknown) Lumbar radiculopathy (units unknown) (unknown) (unknown) (no date) (unknown) (unknown) Lumbar spinal stenosis due to 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 (units unknown) (unknown) (unknown) (no date) (unknown) (unknown) Lumbar spine f ixation appears stable. (units unknown) (unknown) (unknown) (no date) (unknown) (unknown) Lyrica 200 mg b.i.d. (units unknown) (unknown) (unknown) (no date) (unknown) (unknown) MRI 06/28/22 (units unknown) (unknown) (unknown) (no date) (unknown) (unknown) MSK: System re viewed and no additional complaints, except as documented. (units unknown) (unknown) (unknown) (no date) (unknown) (unknown) Medical Histor y (Updated 07/03/22 @ 10:21 by Dhiraj Daigle MD) (units unknown) (unknown) (unknown) (no date) (unknown) (unknown) Medications (units unknown) (unknown) (unknown) (no date) (unknown) (unknown) Medications: (units unknown) (unknown) (unknown) (no date) (unknown) (unknown) Moderate left and right foraminal stenosis (units unknown) (unknown) (unknown) (no date) (unknown) (unknown) Motor (units unknown) (unknown) (unknown) (no date) (unknown) (unknown) Musculoskeletal: (un its unknown) (unknown) (unknown) (no date) (unknown) (unknown) Neuro: System reviewed and no additional complaints, except as documented. (units unknown) (unknown) (unknown) (no date) (unknown) (unknown) Neurologic: (units unknown) (unknown) (unknown) (no date) (unknown) (unknown) No suspicious bony lesions.? (units unknown) (unknown) (unknown) (no date) (unknown) (unknown) Noncontrast sa gittal T1 spin echo and T2 fast echo, sagittal STIR, and T2 fast (units unknown) (unknown) (unknown) (no date) (unknown) (unknown) Numbness/Tingl ing: left calf and left foot numbness (units unknown) (unknown) (unknown) (no date) (unknown) (unknown) [place].? H e requested a refill of Lidoderm patches we will also start (units unknown) (unknown) (unknown) (no date) (unknown) (unknown) Objective Data (unit s unknown) (unknown) (unknown) (no date) (unknown) (unknown) Objective Data: (uni ts unknown) (unknown) (unknown) (no date) (unknown) (unknown) Onset/Context of parish n: (units unknown) (unknown) (unknown) (no date) (unknown) (unknown) Onset: insidio us, exacerbated by recent fall (units unknown) (unknown) (unknown) (no date) (unknown) (unknown) Other: acupuncture ( units unknown) (unknown) (unknown) (no date) (unknown) (unknown) Oxygen Deliver y Method room air (units unknown) (unknown) (unknown) (no date) (unknown) (unknown) PFSH (units unknown) (unknown) (unknown) (no date) (unknown) (unknown) PROCEDURE:? MR LUMBAR SPINE WO CON (units unknown) (unknown) (unknown) (no date) (unknown) (unknown) PROCEDURE:? XR LUMBAR SPINE 2-3V (units unknown) (unknown) (unknown) (no date) (unknown) (unknown) PT: Last PT wa s about 2 months ago in [place] (units unknown) (unknown) (unknown) (no date) (unknown) (unknown) Pain Scale (units unknown) (unknown) (unknown) (no date) (unknown) (unknown) Pain Visit (units unknown) (unknown) (unknown) (no date) (unknown) (unknown) Pain location/Radiation: Back - 'in my back'; Bilateral legs; squeezing of (units unknown) (unknown) (unknown) (no date) (unknown) (unknown) Pain ratin /10 today, 10/10 at worst (units unknown) (unknown) (unknown) (no date) (unknown) (unknown) Paraspinous So ft Tissues:? No paravertebral masses.? (units unknown) (unknown) (unknown) (no date) (unknown) (unknown) Past medical, surgical, social, and family history is unchanged from prior (units unknown) (unknown) (unknown) (no date) (unknown) (unknown) Patient was dawson mark seen here on 06/22/2022 at which time he had bilateral S1 (units unknown) (unknown) (unknown) (no date) (unknown) (unknown) Patient: Kishor Carrasquillo MR#: [id number] (units unknown) (unknown) (unknown) (no date) (unknown) (unknown) Pertinent medi cations include: (units unknown) (unknown) (unknown) (no date) (unknown) (unknown) Plan (units unknown) (unknown) (unknown) (no date) (unknown) (unknown) Plan/Recommendations : (units unknown) (unknown) (unknown) (no date) (unknown) (unknown) Position Sitting (un its unknown) (unknown) (unknown) (no date) (unknown) (unknown) Previous Visit Assessment: Kelsey is a 47-year-old male presenting for further (units unknown) (unknown) (unknown) (no date) (unknown) (unknown) Previous pain treatments included: (units unknown) (unknown) (unknown) (no date) (unknown) (unknown) Psych: Appropr iate affect, answers questions appropriately (units unknown) (unknown) (unknown) (no date) (unknown) (unknown) Pulse 87 (units unknown) (unknown) (unknown) (no date) (unknown) (unknown) Pulse Oximetry (%) 9 8 (units unknown) (unknown) (unknown) (no date) (unknown) (unknown) Pulse Source Monitor (units unknown) (unknown) (unknown) (no date) (unknown) (unknown) Qualifiers: (units unknown) (unknown) (unknown) (no date) (unknown) (unknown) Quality and ti gerri of pain: (units unknown) (unknown) (unknown) (no date) (unknown) (unknown) ROS Narrative (units unknown) (unknown) (unknown) (no date) (unknown) (unknown) ROS Narrative: (unit s unknown) (unknown) (unknown) (no date) (unknown) (unknown) ROS (units unknown) (unknown) (unknown) (no date) (unknown) (unknown) Reason For Visit (un its unknown) (unknown) (unknown) (no date) (unknown) (unknown) Red flag symptoms: ( units unknown) (unknown) (unknown) (no date) (unknown) (unknown) Refilled (units unknown) (unknown) (unknown) (no date) (unknown) (unknown) Reflex Right Left (u nits unknown) (unknown) (unknown) (no date) (unknown) (unknown) Reflexes: (units unknown) (unknown) (unknown) (no date) (unknown) (unknown) Relieving fact ors include: changing positions, laying down (units unknown) (unknown) (unknown) (no date) (unknown) (unknown) Respiratory: Non-labored breathing pattern on RA. No respiratory distress (units unknown) (unknown) (unknown) (no date) (unknown) (unknown) S/P S1 TF MARI (units unknown) (unknown) (unknown) (no date) (unknown) (unknown) S1 Achilles 1+ 1 (un its unknown) (unknown) (unknown) (no date) (unknown) (unknown) S1 Ankle Plantarflexion 5/5 5/5 (units unknown) (unknown) (unknown) (no date) (unknown) (unknown) S1 appears (units unknown) (unknown) (unknown) (no date) (unknown) (unknown) Saddle anesthe marina: denies (units unknown) (unknown) (unknown) (no date) (unknown) (unknown) Sciatica later ality: sciatica of left side Qualified Code(s): M54.42 - Lumbago (units unknown) (unknown) (unknown) (no date) (unknown) (unknown) Segment Action Right Left (units unknown) (unknown) (unknown) (no date) (unknown) (unknown) Segment Reflex Right Left (units unknown) (unknown) (unknown) (no date) (unknown) (unknown) Sensory -? Int act to light touch of bilateral lower extremities. Allodynia (units unknown) (unknown) (unknown) (no date) (unknown) (unknown) Signed By: <Electronically signed by Dhiraj Daigle MD> (units unknown) (unknown) (unknown) (no date) (unknown) (unknown) Signed (units unknown) (unknown) (unknown) (no date) (unknown) (unknown) Skin: No appre ciable rashes or skin breakdown (units unknown) (unknown) (unknown) (no date) (unknown) (unknown) Smoking Status : Never smoker (units unknown) (unknown) (unknown) (no date) (unknown) (unknown) Soft tissues:? Overlying bowel gas pattern is normal.? No suspicious soft tissue (units unknown) (unknown) (unknown) (no date) (unknown) (unknown) Spinal Cord:? Conus medullaris terminates at the L1 level.? Visualized cord (units unknown) (unknown) (unknown) (no date) (unknown) (unknown) Standing: incr eased leg and back pain (units unknown) (unknown) (unknown) (no date) (unknown) (unknown) Stat lumbar MR I was done on 06/28/2022 which did not show any acute (units unknown) (unknown) (unknown) (no date) (unknown) (unknown) Status: Acute (units unknown) (unknown) (unknown) (no date) (unknown) (unknown) Surgery: Annmarie nt is s/p L3-S1 posterior instrumented fusion in 2011 (units unknown) (unknown) (unknown) (no date) (unknown) (unknown) T12 compressio n fracture is unchanged. (units unknown) (unknown) (unknown) (no date) (unknown) (unknown) T12-L1:? Disc space is preserved.? No central or foraminal stenosis. (units unknown) (unknown) (unknown) (no date) (unknown) (unknown) TECHNIQUE:? 2 views of the lumbar spine were acquired.? (units unknown) (unknown) (unknown) (no date) (unknown) (unknown) TECHNIQUE:? (units unknown) (unknown) (unknown) (no date) (unknown) (unknown) Temp 98.3 F (units unknown) (unknown) (unknown) (no date) (unknown) (unknown) Temp Source Te mporal Artery Scan (units unknown) (unknown) (unknown) (no date) (unknown) (unknown) [facility] (units unknown) (unknown) (unknown) (no date) (unknown) (unknown) The exact etio logy of these symptoms is unknown at this time. His current (units unknown) (unknown) (unknown) (no date) (unknown) (unknown) This note may have been all or partially generated using voice recognition (units unknown) (unknown) (unknown) (no date) (unknown) (unknown) Tizanidine 2 m g Q8hr PRN (units unknown) (unknown) (unknown) (no date) (unknown) (unknown) Tobacco + Subs tance Use (units unknown) (unknown) (unknown) (no date) (unknown) (unknown) Tobacco Status (unit s unknown) (unknown) (unknown) (no date) (unknown) (unknown) Today I have r eviewed available medical information in the patient's medical (units unknown) (unknown) (unknown) (no date) (unknown) (unknown) Tramadol 50 mg TID ( units unknown) (unknown) (unknown) (no date) (unknown) (unknown) Upper Motor Ne uron Signs: (units unknown) (unknown) (unknown) (no date) (unknown) (unknown) Visit Reasons: Follow Up ED (units unknown) (unknown) (unknown) (no date) (unknown) (unknown) Vitals (units unknown) (unknown) (unknown) (no date) (unknown) (unknown) Walking: incre ased leg and back pain (units unknown) (unknown) (unknown) (no date) (unknown) (unknown) [place] Prescription Monitoring Program (RN LABOR AND DELIVERY) was reviewed. (units unknown) (unknown) (unknown) (no date) (unknown) (unknown) We reviewed et iology, predisposing factor(s), natural course, imaging results as (units unknown) (unknown) (unknown) (no date) (unknown) (unknown) Weakness: denies (un its unknown) (unknown) (unknown) (no date) (unknown) (unknown) Weight 249 lb 6 oz ( units unknown) (unknown) (unknown) (no date) (unknown) (unknown) abnormalities. He saw his neurosurgeon on 06/30/22. He notes that surgery is (units unknown) (unknown) (unknown) (no date) (unknown) (unknown) benefits of va rious treatment options were discussed with the patient in great (units unknown) (unknown) (unknown) (no date) (unknown) (unknown) bilateral fora solo stenosis (units unknown) (unknown) (unknown) (no date) (unknown) (unknown) bilateral test icles R>L (units unknown) (unknown) (unknown) (no date) (unknown) (unknown) bowel/bladder dysfunction, and perineal numbness were discussed. The patient was (units unknown) (unknown) (unknown) (no date) (unknown) (unknown) calcifications.? (un its unknown) (unknown) (unknown) (no date) (unknown) (unknown) central stenosis. (u nits unknown) (unknown) (unknown) (no date) (unknown) (unknown) central stenos is.? Hypertrophic facet joints contribute to moderate bilateral (units unknown) (unknown) (unknown) (no date) (unknown) (unknown) change from (units unknown) (unknown) (unknown) (no date) (unknown) (unknown) computer. He s tarts PT later this month. (units unknown) (unknown) (unknown) (no date) (unknown) (unknown) concern for lo ose hardware. They are planning for surgical intervention in the (units unknown) (unknown) (unknown) (no date) (unknown) (unknown) demonstrates (units unknown) (unknown) (unknown) (no date) (unknown) (unknown) detail. (units unknown) (unknown) (unknown) (no date) (unknown) (unknown) down the left buttock, posterior thigh/calf. He notes strength has been (units unknown) (unknown) (unknown) (no date) (unknown) (unknown) duloxetine 60 mg capsule,delayed release 60 mg PO DAILY 06/14/22 [History (units unknown) (unknown) (unknown) (no date) (unknown) (unknown) evaluation of chronic low back pain with radiation to bilateral lower (units unknown) (unknown) (unknown) (no date) (unknown) (unknown) extremities.? He has a complicated history of low back pain including multiple (units unknown) (unknown) (unknown) (no date) (unknown) (unknown) ferrous sulfat e 325 mg (65 mg iron) tablet 325 mg PO DAILY 07/03/22 [History (units unknown) (unknown) (unknown) (no date) (unknown) (unknown) foraminal (units unknown) (unknown) (unknown) (no date) (unknown) (unknown) from prior exam (uni ts unknown) (unknown) (unknown) (no date) (unknown) (unknown) have occurred. If there are any questions, please contact the Medical Records (units unknown) (unknown) (unknown) (no date) (unknown) (unknown) instructed to contact the office with any new or worsening concerns. (units unknown) (unknown) (unknown) (no date) (unknown) (unknown) instructed to report to the Emergency department, if these symptoms occur. 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 He notes good (units unknown) (unknown) (unknown) (no date) (unknown) (unknown) may be performed.? ( units unknown) (unknown) (unknown) (no date) (unknown) (unknown) may occur. Occ asional wrong-word or 'sound-alike' substitutions may have (units unknown) (unknown) (unknown) (no date) (unknown) (unknown) meds. (units unknown) (unknown) (unknown) (no date) (unknown) (unknown) methocarbamol 750 mg tablet 750 mg PO Q8H PRN muscle pain #30 tabs 06/07/22 [Rx (units unknown) (unknown) (unknown) (no date) (unknown) (unknown) milk Allergy ( Mild, Verified 07/03/22 08:21) (units unknown) (unknown) (unknown) (no date) (unknown) (unknown) near future. T ramadol was refilled today and we will see him prior to his (units unknown) (unknown) (unknown) (no date) (unknown) (unknown) negative, Hype ralgesia - negative (units unknown) (unknown) (unknown) (no date) (unknown) (unknown) neurological d eficit with progressive or disabling symptoms. (units unknown) (unknown) (unknown) (no date) (unknown) (unknown) normal signal and size.? (units unknown) (unknown) (unknown) (no date) (unknown) (unknown) numbness. He a lso notes a shooting pain starting in the left low back radiating (units unknown) (unknown) (unknown) (no date) (unknown) (unknown) occurred due t o the inherent limitations of voice recognition software. Please (units unknown) (unknown) (unknown) (no date) (unknown) (unknown) of Spinal Cord Injur y) (units unknown) (unknown) (unknown) (no date) (unknown) (unknown) omeprazole 20 mg capsule,delayed release 20 mg PO DAILY 06/14/22 [History (units unknown) (unknown) (unknown) (no date) (unknown) (unknown) or immunosuppr essive therapy, previous or current cancer diagnosis, history of (units unknown) (unknown) (unknown) (no date) (unknown) (unknown) pain resolved within he complained of left lower leg as well as foot numbness. (units unknown) (unknown) (unknown) (no date) (unknown) (unknown) planned. There is concern for loose hardware. He is hoping to have the surgery (units unknown) (unknown) (unknown) (no date) (unknown) (unknown) pregabalin 200 mg capsule 200 mg PO TID 06/14/22 [History Confirmed 07/03/22] (units unknown) (unknown) (unknown) (no date) (unknown) (unknown) preserved. He is more careful with walking to avoid falls. He had an episode of (units unknown) (unknown) (unknown) (no date) (unknown) (unknown) procedure: (units unknown) (unknown) (unknown) (no date) (unknown) (unknown) read the note carefully and recognize, using context, where these substitutions (units unknown) (unknown) (unknown) (no date) (unknown) (unknown) record, includ ing relevant provider notes, laboratory work, and imaging. (units unknown) (unknown) (unknown) (no date) (unknown) (unknown) relief after S 1 transforaminal MARI in the past.? He would likely benefit from a (units unknown) (unknown) (unknown) (no date) (unknown) (unknown) repeat bilater al S1 transforaminal epidural steroid injection.? 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 (units unknown) (unknown) (unknown) (no date) (unknown) (unknown) scrotal pain w hich has since resolved. 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 Alth ough every effort is made to edit content, manager inside errors (units unknown) (unknown) (unknown) (no date) (unknown) (unknown) spin echo (units unknown) (unknown) (unknown) (no date) (unknown) (unknown) spine did not show any acute changes. He notes that his neurosurgeon expressed (units unknown) (unknown) (unknown) (no date) (unknown) (unknown) stability intact. (u nits unknown) (unknown) (unknown) (no date) (unknown) (unknown) stable.? 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 T12 compression fracture, (units unknown) (unknown) (unknown) (no date) (unknown) (unknown) stenosis (units unknown) (unknown) (unknown) (no date) (unknown) (unknown) stenosis.? Mild (uni ts unknown) (unknown) (unknown) (no date) (unknown) (unknown) stenosis.? (units unknown) (unknown) (unknown) (no date) (unknown) (unknown) stimulator for chronic low back pain.' (units unknown) (unknown) (unknown) (no date) (unknown) (unknown) surgery to ass ess for improvement of left lower extremity numbness. He was also (units unknown) (unknown) (unknown) (no date) (unknown) (unknown) symptoms appea r to involve the L4, 5 and S1 nerve roots. Stat MRI of the lumbar (units unknown) (unknown) (unknown) (no date) (unknown) (unknown) the prior exam .? No retropulsed fracture fragment. (units unknown) (unknown) (unknown) (no date) (unknown) (unknown) therapeutic in jections and surgery. The risks, consequences, alternatives and (units unknown) (unknown) (unknown) (no date) (unknown) (unknown) through the [facility] spine.? In cases with scoliosis, additional coronal T2 fast (units unknown) (unknown) (unknown) (no date) (unknown) (unknown) tizanidine 2 m g capsule 2 mg PO Q8H PRN 07/03/22 [History Confirmed 07/03/22] (units unknown) (unknown) (unknown) (no date) (unknown) (unknown) to severe (units unknown) (unknown) (unknown) (no date) (unknown) (unknown) tramadol 50 mg PO TID PRN 30 tabs 1RF pain (units unknown) (unknown) (unknown) (no date) (unknown) (unknown) tramadol 50 mg tablet 50 mg PO TID PRN pain #30 tabs 07/03/22 [Rx Confirmed (units unknown) (unknown) (unknown) (no date) (unknown) (unknown) tramadol for short-term use.? He is currently being evaluated for spinal cord (units unknown) (unknown) (unknown) (no date) (unknown) (unknown) transforaminal MARI. After the injection he noted increased low back pain. This (units unknown) (unknown) (unknown) (no date) (unknown) (unknown) unchanged.? (units unknown) (unknown) (unknown) (no date) (unknown) (unknown) visit. (units unknown) (unknown) (unknown) (no date) (unknown) (unknown) walking intact . Tandem gait normal without evidence of ataxia. Lower quarter (units unknown) (unknown) (unknown) (no date) (unknown) (unknown) well as treatm ent options including medications, physical therapy/exercise, (units unknown) (unknown) (unknown) (no date) (unknown) (unknown) with sciatica, left side; G89.29 - Other chronic pain (units unknown) (unknown) (unknown) (no date) (unknown) (unknown) within the next antoinette h. (units unknown) (unknown) Result panel 50 (unknown) (no date) (unknown) (unknown) (no value) (units unknown) (unknown) (unknown) (no date) (unknown) (unknown) 00:53 (units unknown) (unknown) (unknown) (no date) (unknown) (unknown) 07/05/22 (units unknown) (unknown) (unknown) (no date) (unknown) (unknown) 19:49 07/05/22 (unit s unknown) (unknown) (unknown) (no date) (unknown) (unknown) 2 mg PO Q8H PRN (uni ts unknown) (unknown) (unknown) (no date) (unknown) (unknown) 20 mg PO DAILY (unit s unknown) (unknown) (unknown) (no date) (unknown) (unknown) 200 mg PO TID (units unknown) (unknown) (unknown) (no date) (unknown) (unknown) 22:00 07/06/22 (unit s unknown) (unknown) (unknown) (no date) (unknown) (unknown) 325 mg PO DAILY (uni ts unknown) (unknown) (unknown) (no date) (unknown) (unknown) 50 mg PO TID P RN (Reason: pain) Qty: 30 1RF (units unknown) (unknown) (unknown) (no date) (unknown) (unknown) 60 mg PO DAILY (unit s unknown) (unknown) (unknown) (no date) (unknown) (unknown) 750 mg PO Q8H PRN (Reason: muscle pain) Qty: 30 0RF (units unknown) (unknown) (unknown) (no date) (unknown) (unknown) 990 (units unknown) (unknown) (unknown) (no date) (unknown) (unknown) Age/Sex: 47 / M (uni ts unknown) (unknown) (unknown) (no date) (unknown) (unknown) Allergies (units unknown) (unknown) (unknown) (no date) (unknown) (unknown) Allergy/AdvRea c Type Severity Reaction Status Date / Time (units unknown) (unknown) (unknown) (no date) (unknown) (unknown) Blood Pressure 149/101 H 07/05/22 19:49 (units unknown) (unknown) (unknown) (no date) (unknown) (unknown) Blood Pressure 149/101 H 162/90 H 138/95 H (units unknown) (unknown) (unknown) (no date) (unknown) (unknown) Chief Complain t: Back Pain/Injury (units unknown) (unknown) (unknown) (no date) (unknown) (unknown) Chronic low back parish n (units unknown) (unknown) (unknown) (no date) (unknown) (unknown) Course (units unknown) (unknown) (unknown) (no date) (unknown) (unknown) : 5 Acct:[id number] (units unknown) (unknown) (unknown) (no date) (unknown) (unknown) Date of Servic e: 07/05/22 (units unknown) (unknown) (unknown) (no date) (unknown) (unknown) Departure (units unknown) (unknown) (unknown) (no date) (unknown) (unknown) Discharge Plan (unit s unknown) (unknown) (unknown) (no date) (unknown) (unknown) ER Physician: Wandy Evans MD (units unknown) (unknown) (unknown) (no date) (unknown) (unknown) Emergency Report (un its unknown) (unknown) (unknown) (no date) (unknown) (unknown) Exam (units unknown) (unknown) (unknown) (no date) (unknown) (unknown) Fusion of lumbar spi ne (units unknown) (unknown) (unknown) (no date) (unknown) (unknown) General (units unknown) (unknown) (unknown) (no date) (unknown) (unknown) HPI - Back Pain/Inju ry (units unknown) (unknown) (unknown) (no date) (unknown) (unknown) Home Medications (un its unknown) (unknown) (unknown) (no date) (unknown) (unknown) Initial Vital Signs (units unknown) (unknown) (unknown) (no date) (unknown) (unknown) Initial Vital Signs: (units unknown) (unknown) (unknown) (no date) (unknown) (unknown) [facility] [address] [place] [id number] (units unknown) (unknown) (unknown) (no date) (unknown) (unknown) Lumbar radiculopathy (units unknown) (unknown) (unknown) (no date) (unknown) (unknown) Lumbar spinal stenosis due to 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 (units unknown) (unknown) (unknown) (no date) (unknown) (unknown) Medical Histor y (Updated 07/03/22 @ 10:21 by Dhiraj Daigle MD) (units unknown) (unknown) (unknown) (no date) (unknown) (unknown) Medication Instructions Recorded Confirmed (units unknown) (unknown) (unknown) (no date) (unknown) (unknown) Medication Instructions Recorded (units unknown) (unknown) (unknown) (no date) (unknown) (unknown) Miscellaneous, DoctorMD [Primary Care Provider] (units unknown) (unknown) (unknown) (no date) (unknown) (unknown) No Action (units unknown) (unknown) (unknown) (no date) (unknown) (unknown) Oxygen Deliver y Method Room Air 07/05/22 19:49 (units unknown) (unknown) (unknown) (no date) (unknown) (unknown) Oxygen Deliver y Method Room Air Room Air Room Air (units unknown) (unknown) (unknown) (no date) (unknown) (unknown) Patient Comments: (u nits unknown) (unknown) (unknown) (no date) (unknown) (unknown) Patient History (uni ts unknown) (unknown) (unknown) (no date) (unknown) (unknown) Patient: Kishor Carrasquillo MR#: [id number] (units unknown) (unknown) (unknown) (no date) (unknown) (unknown) Prescriptions: (unit s unknown) (unknown) (unknown) (no date) (unknown) (unknown) Previous Rx's (units unknown) (unknown) (unknown) (no date) (unknown) (unknown) Pulse Oximetry 99 07/05/22 19:49 (units unknown) (unknown) (unknown) (no date) (unknown) (unknown) Pulse Oximetry 99 98 98 (units unknown) (unknown) (unknown) (no date) (unknown) (unknown) Pulse Rate 102 H 07/05/22 19:49 (units unknown) (unknown) (unknown) (no date) (unknown) (unknown) Pulse Rate 102 H 80 84 (units unknown) (unknown) (unknown) (no date) (unknown) (unknown) Referrals: (units unknown) (unknown) (unknown) (no date) (unknown) (unknown) Related Data (units unknown) (unknown) (unknown) (no date) (unknown) (unknown) Respiratory Ra te 18 07/05/22 19:49 (units unknown) (unknown) (unknown) (no date) (unknown) (unknown) Respiratory Ra te 18 18 18 (units unknown) (unknown) (unknown) (no date) (unknown) (unknown) Signed By: (units unknown) (unknown) (unknown) (no date) (unknown) (unknown) Smoking Status : Never smoker (units unknown) (unknown) (unknown) (no date) (unknown) (unknown) Social History (units unknown) (unknown) (unknown) (no date) (unknown) (unknown) Source: patient (uni ts unknown) (unknown) (unknown) (no date) (unknown) (unknown) Stated Complai nt: BACK PAIN (units unknown) (unknown) (unknown) (no date) (unknown) (unknown) Substance Use Type: does not use (units unknown) (unknown) (unknown) (no date) (unknown) (unknown) TAKE ONE CAPSU LE BY MOUTH THREE TIMES DAILY (units unknown) (unknown) (unknown) (no date) (unknown) (unknown) Temperature 97 .5 F L 07/05/22 19:49 (units unknown) (unknown) (unknown) (no date) (unknown) (unknown) Temperature 97.5 F L (units unknown) (unknown) (unknown) (no date) (unknown) (unknown) Time Seen by Wesley gann: 07/05/22 19:56 (units unknown) (unknown) (unknown) (no date) (unknown) (unknown) Vital Signs - 8 hr ( units unknown) (unknown) (unknown) (no date) (unknown) (unknown) Vital Signs (units unknown) (unknown) (unknown) (no date) (unknown) (unknown) Vital signs: (units unknown) (unknown) (unknown) (no date) (unknown) (unknown) alcohol intake frequency: 0-2 drinks per day (units unknown) (unknown) (unknown) (no date) (unknown) (unknown) duloxetine 60 mg capsule,delayed 60 mg PO DAILY 06/14/22 07/03/22 (units unknown) (unknown) (unknown) (no date) (unknown) (unknown) duloxetine 60 mg capsule,delayed release(DR/EC) (units unknown) (unknown) (unknown) (no date) (unknown) (unknown) ferrous sulfat e 325 mg (65 mg 325 mg PO DAILY 07/03/22 07/03/22 (units unknown) (unknown) (unknown) (no date) (unknown) (unknown) ferrous sulfat e 325 mg (65 mg iron) tablet (units unknown) (unknown) (unknown) (no date) (unknown) (unknown) iron) tablet (units unknown) (unknown) (unknown) (no date) (unknown) (unknown) methocarbamol 750 mg tablet 750 mg PO Q8H PRN muscle pain #30 06/07/22 (units unknown) (unknown) (unknown) (no date) (unknown) (unknown) methocarbamol 750 mg tablet (units unknown) (unknown) (unknown) (no date) (unknown) (unknown) milk Allergy M ild Verified 07/05/22 19:53 (units unknown) (unknown) (unknown) (no date) (unknown) (unknown) omeprazole 20 mg capsule,delayed 20 mg PO DAILY 06/14/22 07/03/22 (units unknown) (unknown) (unknown) (no date) (unknown) (unknown) omeprazole 20 mg capsule,delayed release(DR/EC) (units unknown) (unknown) (unknown) (no date) (unknown) (unknown) pregabalin 200 mg capsule 200 mg PO TID 06/14/22 07/03/22 (units unknown) (unknown) (unknown) (no date) (unknown) (unknown) pregabalin 200 mg capsule (units unknown) (unknown) (unknown) (no date) (unknown) (unknown) release (units unknown) (unknown) (unknown) (no date) (unknown) (unknown) tabs (units unknown) (unknown) (unknown) (no date) (unknown) (unknown) tizanidine 2 m g capsule 2 mg PO Q8H PRN 07/03/22 07/03/22 (units unknown) (unknown) (unknown) (no date) (unknown) (unknown) tizanidine 2 m g capsule (units unknown) (unknown) (unknown) (no date) (unknown) (unknown) tramadol 50 mg tablet 50 mg PO TID PRN pain #30 tabs 07/03/22 (units unknown) (unknown) (unknown) (no date) (unknown) (unknown) tramadol 50 mg table t (units unknown) (unknown) Result panel 51 (unknown) (no date) (unknown) (unknown) (no value) (units unknown) (unknown) (unknown) (no date) (unknown) (unknown) 00:53 (units unknown) (unknown) (unknown) (no date) (unknown) (unknown) 07/05/22 (units unknown) (unknown) (unknown) (no date) (unknown) (unknown) 19:49 07/05/22 (unit s unknown) (unknown) (unknown) (no date) (unknown) (unknown) 2 mg PO Q8H PRN (uni ts unknown) (unknown) (unknown) (no date) (unknown) (unknown) 2 weeks ago an d was seen with pain complaints in this emergency department on (units unknown) (unknown) (unknown) (no date) (unknown) (unknown) 20 mg PO DAILY (unit s unknown) (unknown) (unknown) (no date) (unknown) (unknown) 200 mg PO TID (units unknown) (unknown) (unknown) (no date) (unknown) (unknown) 22:00 07/06/22 (unit s unknown) (unknown) (unknown) (no date) (unknown) (unknown) 325 mg PO DAILY (uni ts unknown) (unknown) (unknown) (no date) (unknown) (unknown) 47-year-old ge ntleman with history of significant back pain, 3 spine surgeries, (units unknown) (unknown) (unknown) (no date) (unknown) (unknown) 50 mg PO TID P RN (Reason: pain) Qty: 30 1RF (units unknown) (unknown) (unknown) (no date) (unknown) (unknown) 60 mg PO DAILY (unit s unknown) (unknown) (unknown) (no date) (unknown) (unknown) 750 mg PO Q8H PRN (Reason: muscle pain) Qty: 30 0RF (units unknown) (unknown) (unknown) (no date) (unknown) (unknown) 990 (units unknown) (unknown) (unknown) (no date) (unknown) (unknown) Age/Sex: 47 / M (uni ts unknown) (unknown) (unknown) (no date) (unknown) (unknown) Allergies (units unknown) (unknown) (unknown) (no date) (unknown) (unknown) Allergy/AdvRea c Type Severity Reaction Status Date / Time (units unknown) (unknown) (unknown) (no date) (unknown) (unknown) Back: There is no point tenderness along the lumbar spine. Surgical site there (units unknown) (unknown) (unknown) (no date) (unknown) (unknown) Blood Pressure 149/101 H 07/05/22 19:49 (units unknown) (unknown) (unknown) (no date) (unknown) (unknown) Blood Pressure 149/101 H 162/90 H 138/95 H (units unknown) (unknown) (unknown) (no date) (unknown) (unknown) CC: Progressiv e radicular pain now involving the right side. This is an acute (units unknown) (unknown) (unknown) (no date) (unknown) (unknown) Chief Complain t: Back Pain/Injury (units unknown) (unknown) (unknown) (no date) (unknown) (unknown) Chronic low back parish n (units unknown) (unknown) (unknown) (no date) (unknown) (unknown) Chronic low ba ck pain, Fusion of lumbar spine, Lumbar spinal stenosis due to (units unknown) (unknown) (unknown) (no date) (unknown) (unknown) Clinical Impression: (units unknown) (unknown) (unknown) (no date) (unknown) (unknown) Complicating co-morbidities: Multiple prior spine surgeries, known multilevel (units unknown) (unknown) (unknown) (no date) (unknown) (unknown) Course (units unknown) (unknown) (unknown) (no date) (unknown) (unknown) : 5 Acct:[id number] (units unknown) (unknown) (unknown) (no date) (unknown) (unknown) Data collected from: patient, (units unknown) (unknown) (unknown) (no date) (unknown) (unknown) Date of Servic e: 07/05/22 (units unknown) (unknown) (unknown) (no date) (unknown) (unknown) Departure (units unknown) (unknown) (unknown) (no date) (unknown) (unknown) Differential considered: Progression of chronic disease, inflammation, epidural (units unknown) (unknown) (unknown) (no date) (unknown) (unknown) Discharge Plan (unit s unknown) (unknown) (unknown) (no date) (unknown) (unknown) Discussion: 47-year-old gentleman with significant radicular back pain, spinal (units unknown) (unknown) (unknown) (no date) (unknown) (unknown) ER Physician: Wandy Evans MD (units unknown) (unknown) (unknown) (no date) (unknown) (unknown) Emergency Report (un its unknown) (unknown) (unknown) (no date) (unknown) (unknown) Exam documente d above, pertinent findings include: Radicular pain down both (units unknown) (unknown) (unknown) (no date) (unknown) (unknown) Exam (units unknown) (unknown) (unknown) (no date) (unknown) (unknown) Fusion of lumbar spi ne (units unknown) (unknown) (unknown) (no date) (unknown) (unknown) General (units unknown) (unknown) (unknown) (no date) (unknown) (unknown) General: Alert appropriate in no acute distress (units unknown) (unknown) (unknown) (no date) (unknown) (unknown) HPI - Back Pain/Inju ry (units unknown) (unknown) (unknown) (no date) (unknown) (unknown) HPI Narrative: (unit s unknown) (unknown) (unknown) (no date) (unknown) (unknown) History of Pre sent Illness (units unknown) (unknown) (unknown) (no date) (unknown) (unknown) Home Medications (un its unknown) (unknown) (unknown) (no date) (unknown) (unknown) Imaging studie s independently reviewed: MR spine from 06/28/2022, 06/07/2022 (units unknown) (unknown) (unknown) (no date) (unknown) (unknown) Initial Vital Signs (units unknown) (unknown) (unknown) (no date) (unknown) (unknown) Initial Vital Signs: (units unknown) (unknown) (unknown) (no date) (unknown) (unknown) Instructions: DI for Back Pain With Sciatica (units unknown) (unknown) (unknown) (no date) (unknown) (unknown) [address] [address] (units unknown) (unknown) (unknown) (no date) (unknown) (unknown) Lumbar radiculopathy (units unknown) (unknown) (unknown) (no date) (unknown) (unknown) 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 At th at point an MRI of the lumbar spine was done that did not show (units unknown) (unknown) (unknown) (no date) (unknown) (unknown) June 30 he was given dexamethasone taper. He is had steroid tapers and number (units unknown) (unknown) (unknown) (no date) (unknown) (unknown) Medical Histor y (units unknown) (unknown) (unknown) (no date) (unknown) (unknown) Medical decisi on making narrative: (units unknown) (unknown) (unknown) (no date) (unknown) (unknown) Medical record s reviewed: MRI of the lumbar spine on 06/07/2022 and 06/28/2022 (units unknown) (unknown) (unknown) (no date) (unknown) (unknown) Medication Instructions Recorded Confirmed (units unknown) (unknown) (unknown) (no date) (unknown) (unknown) Medication Instructions Recorded (units unknown) (unknown) (unknown) (no date) (unknown) (unknown) Miscellaneous, Doctor, [Primary Care Provider] (units unknown) (unknown) (unknown) (no date) (unknown) (unknown) Narrative: (units unknown) (unknown) (unknown) (no date) (unknown) (unknown) Neurologic: He is able to walk without significant weakness in either leg., (units unknown) (unknown) (unknown) (no date) (unknown) (unknown) No Action (units unknown) (unknown) (unknown) (no date) (unknown) (unknown) Oxygen Deliver y Method Room Air 07/05/22 19:49 (units unknown) (unknown) (unknown) (no date) (unknown) (unknown) Oxygen Deliver y Method Room Air Room Air Room Air (units unknown) (unknown) (unknown) (no date) (unknown) (unknown) Patellar and a nkle reflexes are symmetrical bilaterally. Right leg also has 5/5 (units unknown) (unknown) (unknown) (no date) (unknown) (unknown) Patient Comments: (u nits unknown) (unknown) (unknown) (no date) (unknown) (unknown) Patient Dispos ition: Home (units unknown) (unknown) (unknown) (no date) (unknown) (unknown) Patient History (uni ts unknown) (unknown) (unknown) (no date) (unknown) (unknown) Patient: Kishor Carrasquillo MR#: [id number] (units unknown) (unknown) (unknown) (no date) (unknown) (unknown) Persistent parish n and significant sleep deprivation (units unknown) (unknown) (unknown) (no date) (unknown) (unknown) Pertinent posi tive and negative findings as per HPI (units unknown) (unknown) (unknown) (no date) (unknown) (unknown) Prescriptions: (unit s unknown) (unknown) (unknown) (no date) (unknown) (unknown) Previous Rx's (units unknown) (unknown) (unknown) (no date) (unknown) (unknown) [place] by Dr. Mosley, surgery is scheduled in the next 4-6 weeks for this (units unknown) (unknown) (unknown) (no date) (unknown) (unknown) Psych: appropr iate insight and affect, cooperative (units unknown) (unknown) (unknown) (no date) (unknown) (unknown) Pulse Oximetry 99 07/05/22 19:49 (units unknown) (unknown) (unknown) (no date) (unknown) (unknown) Pulse Oximetry 99 98 98 (units unknown) (unknown) (unknown) (no date) (unknown) (unknown) Pulse Rate 102 H 07/05/22 19:49 (units unknown) (unknown) (unknown) (no date) (unknown) (unknown) Pulse Rate 102 H 80 84 (units unknown) (unknown) (unknown) (no date) (unknown) (unknown) Referrals: (units unknown) (unknown) (unknown) (no date) (unknown) (unknown) Related Data (units unknown) (unknown) (unknown) (no date) (unknown) (unknown) Respiratory Ra te 18 07/05/22 19:49 (units unknown) (unknown) (unknown) (no date) (unknown) (unknown) Respiratory Ra te 18 18 18 (units unknown) (unknown) (unknown) (no date) (unknown) (unknown) Respiratory: A ble to speak in full sentences, no obvious respiratory distress (units unknown) (unknown) (unknown) (no date) (unknown) (unknown) Review of Systems (u nits unknown) (unknown) (unknown) (no date) (unknown) (unknown) Signed By: (units unknown) (unknown) (unknown) (no date) (unknown) (unknown) Skin: No obvio us rashes, warm and dry (units unknown) (unknown) (unknown) (no date) (unknown) (unknown) Smoking Status : Never smoker (units unknown) (unknown) (unknown) (no date) (unknown) (unknown) Social History (units unknown) (unknown) (unknown) (no date) (unknown) (unknown) Social determi nants of health that may influence the patients condition: (units unknown) (unknown) (unknown) (no date) (unknown) (unknown) Source: patient (uni ts unknown) (unknown) (unknown) (no date) (unknown) (unknown) Stand Alone Fo [place]: Patient Portal/API (units unknown) (unknown) (unknown) (no date) (unknown) (unknown) Stated Complai nt: BACK PAIN (units unknown) (unknown) (unknown) (no date) (unknown) (unknown) Substance Use Type: does not use (units unknown) (unknown) (unknown) (no date) (unknown) (unknown) TAKE ONE CAPSU LE BY MOUTH THREE TIMES DAILY (units unknown) (unknown) (unknown) (no date) (unknown) (unknown) Temperature 97 .5 F L 07/05/22 19:49 (units unknown) (unknown) (unknown) (no date) (unknown) (unknown) Temperature 97.5 F L (units unknown) (unknown) (unknown) (no date) (unknown) (unknown) Time Seen by Wesley gann: 07/05/22 19:56 (units unknown) (unknown) (unknown) (no date) (unknown) (unknown) Toradol a numb er of times and notes that too has not been particularly (units unknown) (unknown) (unknown) (no date) (unknown) (unknown) Treatments: IM Dilaudid, 2 mg, Percocet take-home pack (units unknown) (unknown) (unknown) (no date) (unknown) (unknown) Vital Signs - 8 hr ( units unknown) (unknown) (unknown) (no date) (unknown) (unknown) Vital Signs (units unknown) (unknown) (unknown) (no date) (unknown) (unknown) Vital signs: (units unknown) (unknown) (unknown) (no date) (unknown) (unknown) abscess (units unknown) (unknown) (unknown) (no date) (unknown) (unknown) abscess. 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 He currently is taking tramadol Lyrica and Tylenol. On (units unknown) (unknown) (unknown) (no date) (unknown) (unknown) basis. (units unknown) (unknown) (unknown) (no date) (unknown) (unknown) canal stenosis as well as foraminal stenoses, moderate chronic T12 compression (units unknown) (unknown) (unknown) (no date) (unknown) (unknown) consistent wit h plans for upcoming surgery. In the meantime, the patient is (units unknown) (unknown) (unknown) (no date) (unknown) (unknown) control and prescription for Percocet, 20. Pills. He will be following up with (units unknown) (unknown) (unknown) (no date) (unknown) (unknown) decreased sens ation in the posterior portion of the leg calf and foot including (units unknown) (unknown) (unknown) (no date) (unknown) (unknown) do not show significant progression of symptoms. The June 28, 2022 exam was after (units unknown) (unknown) (unknown) (no date) (unknown) (unknown) duloxetine 60 mg capsule,delayed 60 mg PO DAILY 06/14/22 07/03/22 (units unknown) (unknown) (unknown) (no date) (unknown) (unknown) duloxetine 60 mg capsule,delayed release(DR/EC) (units unknown) (unknown) (unknown) (no date) (unknown) (unknown) effective. Had a gastric bypass and can not use nonsteroidals on a regular (units unknown) (unknown) (unknown) (no date) (unknown) (unknown) encourage him to continue Lyrica and Tylenol. He is aware that Percocet does (units unknown) (unknown) (unknown) (no date) (unknown) (unknown) epidural absce ss or infection but did suggest significant pathology that is (units unknown) (unknown) (unknown) (no date) (unknown) (unknown) ferrous sulfat e 325 mg (65 mg 325 mg PO DAILY 07/03/22 07/03/22 (units unknown) (unknown) (unknown) (no date) (unknown) (unknown) ferrous sulfat e 325 mg (65 mg iron) tablet (units unknown) (unknown) (unknown) (no date) (unknown) (unknown) fevers, cough, chills. He did have an epidural steroid injection approximately (units unknown) (unknown) (unknown) (no date) (unknown) (unknown) fracture. (units unknown) (unknown) (unknown) (no date) (unknown) (unknown) have Tylenol i n it. We also talked about the importance of stool softeners to (units unknown) (unknown) (unknown) (no date) (unknown) (unknown) he has not bee n able sleep for the last 48 hours secondary to pain and today is (units unknown) (unknown) (unknown) (no date) (unknown) (unknown) his orthopedic surgeon tomorrow to talk about timing of surgery and continued (units unknown) (unknown) (unknown) (no date) (unknown) (unknown) incredibly uncomfortable and requesting help with pain control to try and get (units unknown) (unknown) (unknown) (no date) (unknown) (unknown) iron) tablet (units unknown) (unknown) (unknown) (no date) (unknown) (unknown) is healing nicely (u nits unknown) (unknown) (unknown) (no date) (unknown) (unknown) issue. He is h aving increasing pain and numbness on the left side, reports that (units unknown) (unknown) (unknown) (no date) (unknown) (unknown) knee and sligh t decreased sensation over the dorsum of his foot. Describes no (units unknown) (unknown) (unknown) (no date) (unknown) (unknown) legs with norm al reflexes, normal strength and no evidence of point tenderness (units unknown) (unknown) (unknown) (no date) (unknown) (unknown) methocarbamol 750 mg tablet 750 mg PO Q8H PRN muscle pain #30 06/07/22 (units unknown) (unknown) (unknown) (no date) (unknown) (unknown) methocarbamol 750 mg tablet (units unknown) (unknown) (unknown) (no date) (unknown) (unknown) milk Allergy M ild Verified 07/05/22 19:53 (units unknown) (unknown) (unknown) (no date) (unknown) (unknown) neurosurgical emergency and outpatient pain control until he is able to follow (units unknown) (unknown) (unknown) (no date) (unknown) (unknown) noticing pain radiating down the right leg with muscle cramping just above his (units unknown) (unknown) (unknown) (no date) (unknown) (unknown) of times notes that it really has not been effective with any of them. Tried (units unknown) (unknown) (unknown) (no date) (unknown) (unknown) omeprazole 20 mg capsule,delayed 20 mg PO DAILY 06/14/22 07/03/22 (units unknown) (unknown) (unknown) (no date) (unknown) (unknown) omeprazole 20 mg capsule,delayed release(DR/EC) (units unknown) (unknown) (unknown) (no date) (unknown) (unknown) pregabalin 200 mg capsule 200 mg PO TID 06/14/22 07/03/22 (units unknown) (unknown) (unknown) (no date) (unknown) (unknown) pregabalin 200 mg capsule (units unknown) (unknown) (unknown) (no date) (unknown) (unknown) prevent elsasaúl cici. At this point I do not think that this is an acute (units unknown) (unknown) (unknown) (no date) (unknown) (unknown) problem exacer bating his chronic issues with uncertain prognosis (units unknown) (unknown) (unknown) (no date) (unknown) (unknown) progressive paresthesias and weakness worse on the left side followed at (units unknown) (unknown) (unknown) (no date) (unknown) (unknown) recent spinal epidural injection and did not show any evidence of epidural (units unknown) (unknown) (unknown) (no date) (unknown) (unknown) release (units unknown) (unknown) (unknown) (no date) (unknown) (unknown) stenosis, T12 compression fracture with progression of his radicular symptoms (units unknown) (unknown) (unknown) (no date) (unknown) (unknown) strength. Slig ht decreased sensation on the dorsum of the foot. (units unknown) (unknown) (unknown) (no date) (unknown) (unknown) tabs (units unknown) (unknown) (unknown) (no date) (unknown) (unknown) the top of the foot compared to the right side. He does have 5/5 strength. (units unknown) (unknown) (unknown) (no date) (unknown) (unknown) tizanidine 2 m g capsule 2 mg PO Q8H PRN 07/03/22 07/03/22 (units unknown) (unknown) (unknown) (no date) (unknown) (unknown) tizanidine 2 m g capsule (units unknown) (unknown) (unknown) (no date) (unknown) (unknown) tramadol 50 mg tablet 50 mg PO TID PRN pain #30 tabs 07/03/22 (units unknown) (unknown) (unknown) (no date) (unknown) (unknown) tramadol 50 mg table t (units unknown) (unknown) (unknown) (no date) (unknown) (unknown) treatment of h is pain. At this point clearly his tramadol is not working. Did (units unknown) (unknown) (unknown) (no date) (unknown) (unknown) up with his tyler rgeon and anticipated surgery is going to be appropriate. (units unknown) (unknown) (unknown) (no date) (unknown) (unknown) with no benefi t from recent Medrol Dosepak. He is given IM Dilaudid for pain (units unknown) (unknown) (unknown) (no date) (unknown) (unknown) with surgery anticipated in the next 4-6 weeks. Significant sleep deprivation (units unknown) (unknown) Result panel 52 (unknown) (no date) (unknown) (unknown) (no value) (units unknown) (unknown) (unknown) (no date) (unknown) (unknown) 00:53 (units unknown) (unknown) (unknown) (no date) (unknown) (unknown) 07/05/22 (units unknown) (unknown) (unknown) (no date) (unknown) (unknown) 19:49 07/05/22 (unit s unknown) (unknown) (unknown) (no date) (unknown) (unknown) 2 mg PO Q8H PRN (uni ts unknown) (unknown) (unknown) (no date) (unknown) (unknown) 2 weeks ago an d was seen with pain complaints in this emergency department on (units unknown) (unknown) (unknown) (no date) (unknown) (unknown) 20 mg PO DAILY (unit s unknown) (unknown) (unknown) (no date) (unknown) (unknown) 200 mg PO TID (units unknown) (unknown) (unknown) (no date) (unknown) (unknown) 22:00 07/06/22 (unit s unknown) (unknown) (unknown) (no date) (unknown) (unknown) 325 mg PO DAILY (uni ts unknown) (unknown) (unknown) (no date) (unknown) (unknown) 47-year-old ge ntleman with history of significant back pain, 3 spine surgeries, (units unknown) (unknown) (unknown) (no date) (unknown) (unknown) 50 mg PO TID P RN (Reason: pain) Qty: 30 1RF (units unknown) (unknown) (unknown) (no date) (unknown) (unknown) 60 mg PO DAILY (unit s unknown) (unknown) (unknown) (no date) (unknown) (unknown) 750 mg PO Q8H PRN (Reason: muscle pain) Qty: 30 0RF (units unknown) (unknown) (unknown) (no date) (unknown) (unknown) 990 (units unknown) (unknown) (unknown) (no date) (unknown) (unknown) Activity Restrictions/Additiona l Instructions: (units unknown) (unknown) (unknown) (no date) (unknown) (unknown) Age/Sex: 47 / M (uni ts unknown) (unknown) (unknown) (no date) (unknown) (unknown) Allergies (units unknown) (unknown) (unknown) (no date) (unknown) (unknown) Allergy/AdvRea c Type Severity Reaction Status Date / Time (units unknown) (unknown) (unknown) (no date) (unknown) (unknown) At this time, I am not concerned that you have new findings, infection or (units unknown) (unknown) (unknown) (no date) (unknown) (unknown) Back: There is no point tenderness along the lumbar spine. Surgical site there (units unknown) (unknown) (unknown) (no date) (unknown) (unknown) Blood Pressure 149/101 H 07/05/22 19:49 (units unknown) (unknown) (unknown) (no date) (unknown) (unknown) Blood Pressure 149/101 H 162/90 H 138/95 H (units unknown) (unknown) (unknown) (no date) (unknown) (unknown) CC: Progressiv e radicular pain now involving the right side. This is an acute (units unknown) (unknown) (unknown) (no date) (unknown) (unknown) Chief Complain t: Back Pain/Injury (units unknown) (unknown) (unknown) (no date) (unknown) (unknown) Chronic low back parish n (units unknown) (unknown) (unknown) (no date) (unknown) (unknown) Chronic low ba ck pain, Fusion of lumbar spine, Lumbar spinal stenosis due to (units unknown) (unknown) (unknown) (no date) (unknown) (unknown) Clinical Impression: (units unknown) (unknown) (unknown) (no date) (unknown) (unknown) Complicating co-morbidities: Multiple prior spine surgeries, known multilevel (units unknown) (unknown) (unknown) (no date) (unknown) (unknown) Course (units unknown) (unknown) (unknown) (no date) (unknown) (unknown) : 5 Acct:[id number] (units unknown) (unknown) (unknown) (no date) (unknown) (unknown) Data collected from: patient, (units unknown) (unknown) (unknown) (no date) (unknown) (unknown) Date of Servic e: 07/05/22 (units unknown) (unknown) (unknown) (no date) (unknown) (unknown) Departure (units unknown) (unknown) (unknown) (no date) (unknown) (unknown) Differential considered: Progression of chronic disease, inflammation, epidural (units unknown) (unknown) (unknown) (no date) (unknown) (unknown) Discharge Plan (unit s unknown) (unknown) (unknown) (no date) (unknown) (unknown) Discontinued Medications (units unknown) (unknown) (unknown) (no date) (unknown) (unknown) Discussion: 47-year-old gentleman with significant radicular back pain, spinal (units unknown) (unknown) (unknown) (no date) (unknown) (unknown) ER Physician: Wandy Evans MD (units unknown) (unknown) (unknown) (no date) (unknown) (unknown) Emergency Report (un its unknown) (unknown) (unknown) (no date) (unknown) (unknown) Exam documente d above, pertinent findings include: Radicular pain down both (units unknown) (unknown) (unknown) (no date) (unknown) (unknown) Exam (units unknown) (unknown) (unknown) (no date) (unknown) (unknown) Fusion of lumbar spi ne (units unknown) (unknown) (unknown) (no date) (unknown) (unknown) General (units unknown) (unknown) (unknown) (no date) (unknown) (unknown) General: Alert appropriate in no acute distress (units unknown) (unknown) (unknown) (no date) (unknown) (unknown) HPI - Back Pain/Inju ry (units unknown) (unknown) (unknown) (no date) (unknown) (unknown) HPI Narrative: (unit s unknown) (unknown) (unknown) (no date) (unknown) (unknown) History of Pre sent Illness (units unknown) (unknown) (unknown) (no date) (unknown) (unknown) Home Medications (un its unknown) (unknown) (unknown) (no date) (unknown) (unknown) Hydromorphone HCl (Hydromorphone 1 Mg Inj) 2 mg IM NOW ONE (units unknown) (unknown) (unknown) (no date) (unknown) (unknown) I am sorry johnson t you are suffering with this back pain. (units unknown) (unknown) (unknown) (no date) (unknown) (unknown) I have given y ou a shot of Dilaudid and a prescription for Percocet to use for (units unknown) (unknown) (unknown) (no date) (unknown) (unknown) Imaging studie s independently reviewed: MR spine from 06/28/2022, 06/07/2022 (units unknown) (unknown) (unknown) (no date) (unknown) (unknown) Initial Vital Signs (units unknown) (unknown) (unknown) (no date) (unknown) (unknown) Initial Vital Signs: (units unknown) (unknown) (unknown) (no date) (unknown) (unknown) Instructions: DI for Back Pain With Sciatica (units unknown) (unknown) (unknown) (no date) (unknown) (unknown) [address] [address] (units unknown) (unknown) (unknown) (no date) (unknown) (unknown) Lumbar radiculopathy (units unknown) (unknown) (unknown) (no date) (unknown) (unknown) 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 At th at point an MRI of the lumbar spine was done that did not show (units unknown) (unknown) (unknown) (no date) (unknown) (unknown) June 30 he was given dexamethasone taper. He is had steroid tapers and number (units unknown) (unknown) (unknown) (no date) (unknown) (unknown) Medical Histor y (units unknown) (unknown) (unknown) (no date) (unknown) (unknown) Medical decisi on making narrative: (units unknown) (unknown) (unknown) (no date) (unknown) (unknown) Medical record s reviewed: MRI of the lumbar spine on 06/07/2022 and 06/28/2022 (units unknown) (unknown) (unknown) (no date) (unknown) (unknown) Medication Instructions Recorded Confirmed (units unknown) (unknown) (unknown) (no date) (unknown) (unknown) Medication Instructions Recorded (units unknown) (unknown) (unknown) (no date) (unknown) (unknown) Miscellaneous, DoctorMD [Primary Care Provider] (units unknown) (unknown) (unknown) (no date) (unknown) (unknown) Narrative: (units unknown) (unknown) (unknown) (no date) (unknown) (unknown) Neurologic: He is able to walk without significant weakness in either leg., (units unknown) (unknown) (unknown) (no date) (unknown) (unknown) No Action (units unknown) (unknown) (unknown) (no date) (unknown) (unknown) ONE (units unknown) (unknown) (unknown) (no date) (unknown) (unknown) Ordered: (units unknown) (unknown) (unknown) (no date) (unknown) (unknown) Orders (units unknown) (unknown) (unknown) (no date) (unknown) (unknown) Oxycodone/Acet aminophe n (Oxycodone/Apap 5/325 Prepack) 1 bottle MISC SEEINSTR (units unknown) (unknown) (unknown) (no date) (unknown) (unknown) Oxygen Deliver y Method Room Air 07/05/22 19:49 (units unknown) (unknown) (unknown) (no date) (unknown) (unknown) Oxygen Deliver y Method Room Air Room Air Room Air (units unknown) (unknown) (unknown) (no date) (unknown) (unknown) Patellar and a nkle reflexes are symmetrical bilaterally. Right leg also has 5/5 (units unknown) (unknown) (unknown) (no date) (unknown) (unknown) Patient Comments: (u nits unknown) (unknown) (unknown) (no date) (unknown) (unknown) Patient Dispos ition: Home (units unknown) (unknown) (unknown) (no date) (unknown) (unknown) Patient History (uni ts unknown) (unknown) (unknown) (no date) (unknown) (unknown) Patient: Kishor Carrasquillo MR#: [id number] (units unknown) (unknown) (unknown) (no date) (unknown) (unknown) Persistent parish n and significant sleep deprivation (units unknown) (unknown) (unknown) (no date) (unknown) (unknown) Pertinent posi tive and negative findings as per HPI (units unknown) (unknown) (unknown) (no date) (unknown) (unknown) Please make tyler re you add MiraLax into your daily regimen to prevent (units unknown) (unknown) (unknown) (no date) (unknown) (unknown) Prescriptions: (unit s unknown) (unknown) (unknown) (no date) (unknown) (unknown) Previous Rx's (units unknown) (unknown) (unknown) (no date) (unknown) (unknown) [place] by Dr. Mosley, surgery is scheduled in the next 4-6 weeks for this (units unknown) (unknown) (unknown) (no date) (unknown) (unknown) Psych: appropr iate insight and affect, cooperative (units unknown) (unknown) (unknown) (no date) (unknown) (unknown) Pulse Oximetry 99 07/05/22 19:49 (units unknown) (unknown) (unknown) (no date) (unknown) (unknown) Pulse Oximetry 99 98 98 (units unknown) (unknown) (unknown) (no date) (unknown) (unknown) Pulse Rate 102 H 07/05/22 19:49 (units unknown) (unknown) (unknown) (no date) (unknown) (unknown) Pulse Rate 102 H 80 84 (units unknown) (unknown) (unknown) (no date) (unknown) (unknown) Referrals: (units unknown) (unknown) (unknown) (no date) (unknown) (unknown) Related Data (units unknown) (unknown) (unknown) (no date) (unknown) (unknown) Respiratory Ra te 18 07/05/22 19:49 (units unknown) (unknown) (unknown) (no date) (unknown) (unknown) Respiratory Ra te 18 18 18 (units unknown) (unknown) (unknown) (no date) (unknown) (unknown) Respiratory: A ble to speak in full sentences, no obvious respiratory distress (units unknown) (unknown) (unknown) (no date) (unknown) (unknown) Review of Systems (u nits unknown) (unknown) (unknown) (no date) (unknown) (unknown) Signed By: (units unknown) (unknown) (unknown) (no date) (unknown) (unknown) Skin: No obvio us rashes, warm and dry (units unknown) (unknown) (unknown) (no date) (unknown) (unknown) Smoking Status : Never smoker (units unknown) (unknown) (unknown) (no date) (unknown) (unknown) Social History (units unknown) (unknown) (unknown) (no date) (unknown) (unknown) Social determi nants of health that may influence the patients condition: (units unknown) (unknown) (unknown) (no date) (unknown) (unknown) Source: patient (uni ts unknown) (unknown) (unknown) (no date) (unknown) (unknown) Stand Alone Fo l[place]: Patient Portal/API (units unknown) (unknown) (unknown) (no date) (unknown) (unknown) Stated Complai nt: BACK PAIN (units unknown) (unknown) (unknown) (no date) (unknown) (unknown) Stop: 07/06/22 01:15 (units unknown) (unknown) (unknown) (no date) (unknown) (unknown) Substance Use Type: does not use (units unknown) (unknown) (unknown) (no date) (unknown) (unknown) TAKE ONE CAPSU LE BY MOUTH THREE TIMES DAILY (units unknown) (unknown) (unknown) (no date) (unknown) (unknown) Temperature 97 .5 F L 07/05/22 19:49 (units unknown) (unknown) (unknown) (no date) (unknown) (unknown) Temperature 97.5 F L (units unknown) (unknown) (unknown) (no date) (unknown) (unknown) Time Seen by Wesley gann: 07/05/22 19:56 (units unknown) (unknown) (unknown) (no date) (unknown) (unknown) Toradol a numb er of times and notes that too has not been particularly (units unknown) (unknown) (unknown) (no date) (unknown) (unknown) Treatments: IM Dilaudid, 2 mg, Percocet take-home pack (units unknown) (unknown) (unknown) (no date) (unknown) (unknown) Vital Signs - 8 hr ( units unknown) (unknown) (unknown) (no date) (unknown) (unknown) Vital Signs (units unknown) (unknown) (unknown) (no date) (unknown) (unknown) Vital signs: (units unknown) (unknown) (unknown) (no date) (unknown) (unknown) abscess (units unknown) (unknown) (unknown) (no date) (unknown) (unknown) abscess. 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 He currently is taking tramadol Lyrica and Tylenol. On (units unknown) (unknown) (unknown) (no date) (unknown) (unknown) basis. (units unknown) (unknown) (unknown) (no date) (unknown) (unknown) canal stenosis as well as foraminal stenoses, moderate chronic T12 compression (units unknown) (unknown) (unknown) (no date) (unknown) (unknown) consistent wit h plans for upcoming surgery. In the meantime, the patient is (units unknown) (unknown) (unknown) (no date) (unknown) (unknown) constipation. (units unknown) (unknown) (unknown) (no date) (unknown) (unknown) control and prescription for Percocet, 20. Pills. He will be following up with (units unknown) (unknown) (unknown) (no date) (unknown) (unknown) decreased sens ation in the posterior portion of the leg calf and foot including (units unknown) (unknown) (unknown) (no date) (unknown) (unknown) do not show significant progression of symptoms. The June 28, 2022 exam was after (units unknown) (unknown) (unknown) (no date) (unknown) (unknown) duloxetine 60 mg capsule,delayed 60 mg PO DAILY 06/14/22 07/03/22 (units unknown) (unknown) (unknown) (no date) (unknown) (unknown) duloxetine 60 mg capsule,delayed release(DR/EC) (units unknown) (unknown) (unknown) (no date) (unknown) (unknown) effective. Had a gastric bypass and can not use nonsteroidals on a regular (units unknown) (unknown) (unknown) (no date) (unknown) (unknown) encourage him to continue Lyrica and Tylenol. He is aware that Percocet does (units unknown) (unknown) (unknown) (no date) (unknown) (unknown) epidural absce ss or infection but did suggest significant pathology that is (units unknown) (unknown) (unknown) (no date) (unknown) (unknown) epidural access (uni ts unknown) (unknown) (unknown) (no date) (unknown) (unknown) ferrous sulfat e 325 mg (65 mg 325 mg PO DAILY 07/03/22 07/03/22 (units unknown) (unknown) (unknown) (no date) (unknown) (unknown) ferrous sulfat e 325 mg (65 mg iron) tablet (units unknown) (unknown) (unknown) (no date) (unknown) (unknown) fevers, cough, chills. He did have an epidural steroid injection approximately (units unknown) (unknown) (unknown) (no date) (unknown) (unknown) fracture. (units unknown) (unknown) (unknown) (no date) (unknown) (unknown) have Tylenol i n it. We also talked about the importance of stool softeners to (units unknown) (unknown) (unknown) (no date) (unknown) (unknown) he has not bee n able sleep for the last 48 hours secondary to pain and today is (units unknown) (unknown) (unknown) (no date) (unknown) (unknown) his orthopedic surgeon tomorrow to talk about timing of surgery and continued (units unknown) (unknown) (unknown) (no date) (unknown) (unknown) incredibly uncomfortable and requesting help with pain control to try and get (units unknown) (unknown) (unknown) (no date) (unknown) (unknown) iron) tablet (units unknown) (unknown) (unknown) (no date) (unknown) (unknown) is healing nicely (u nits unknown) (unknown) (unknown) (no date) (unknown) (unknown) issue. He is h aving increasing pain and numbness on the left side, reports that (units unknown) (unknown) (unknown) (no date) (unknown) (unknown) knee and sligh t decreased sensation over the dorsum of his foot. Describes no (units unknown) (unknown) (unknown) (no date) (unknown) (unknown) legs with norm al reflexes, normal strength and no evidence of point tenderness (units unknown) (unknown) (unknown) (no date) (unknown) (unknown) methocarbamol 750 mg tablet 750 mg PO Q8H PRN muscle pain #30 06/07/22 (units unknown) (unknown) (unknown) (no date) (unknown) (unknown) methocarbamol 750 mg tablet (units unknown) (unknown) (unknown) (no date) (unknown) (unknown) milk Allergy M ild Verified 07/05/22 19:53 (units unknown) (unknown) (unknown) (no date) (unknown) (unknown) necessary to a t least get some sleep. (units unknown) (unknown) (unknown) (no date) (unknown) (unknown) neurosurgical emergency and outpatient pain control until he is able to follow (units unknown) (unknown) (unknown) (no date) (unknown) (unknown) noticing pain radiating down the right leg with muscle cramping just above his (units unknown) (unknown) (unknown) (no date) (unknown) (unknown) of times notes that it really has not been effective with any of them. Tried (units unknown) (unknown) (unknown) (no date) (unknown) (unknown) omeprazole 20 mg capsule,delayed 20 mg PO DAILY 06/14/22 07/03/22 (units unknown) (unknown) (unknown) (no date) (unknown) (unknown) omeprazole 20 mg capsule,delayed release(DR/EC) (units unknown) (unknown) (unknown) (no date) (unknown) (unknown) pain. Narcotic s for chronic pain and never the answer but sometimes are (units unknown) (unknown) (unknown) (no date) (unknown) (unknown) pregabalin 200 mg capsule 200 mg PO TID 06/14/22 07/03/22 (units unknown) (unknown) (unknown) (no date) (unknown) (unknown) pregabalin 200 mg capsule (units unknown) (unknown) (unknown) (no date) (unknown) (unknown) prevent chap[place]ito bolanos. At this point I do not think that this is an acute (units unknown) (unknown) (unknown) (no date) (unknown) (unknown) problem exacer bating his chronic issues with uncertain prognosis (units unknown) (unknown) (unknown) (no date) (unknown) (unknown) progressive paresthesias and weakness worse on the left side followed at (units unknown) (unknown) (unknown) (no date) (unknown) (unknown) recent spinal epidural injection and did not show any evidence of epidural (units unknown) (unknown) (unknown) (no date) (unknown) (unknown) release (units unknown) (unknown) (unknown) (no date) (unknown) (unknown) stenosis, T12 compression fracture with progression of his radicular symptoms (units unknown) (unknown) (unknown) (no date) (unknown) (unknown) strength. Slig ht decreased sensation on the dorsum of the foot. (units unknown) (unknown) (unknown) (no date) (unknown) (unknown) tabs (units unknown) (unknown) (unknown) (no date) (unknown) (unknown) the top of the foot compared to the right side. He does have 5/5 strength. (units unknown) (unknown) (unknown) (no date) (unknown) (unknown) tizanidine 2 m g capsule 2 mg PO Q8H PRN 07/03/22 07/03/22 (units unknown) (unknown) (unknown) (no date) (unknown) (unknown) tizanidine 2 m g capsule (units unknown) (unknown) (unknown) (no date) (unknown) (unknown) tramadol 50 mg tablet 50 mg PO TID PRN pain #30 tabs 07/03/22 (units unknown) (unknown) (unknown) (no date) (unknown) (unknown) tramadol 50 mg table t (units unknown) (unknown) (unknown) (no date) (unknown) (unknown) treatment of h is pain. At this point clearly his tramadol is not working. Did (units unknown) (unknown) (unknown) (no date) (unknown) (unknown) up with his tyler rgeon and anticipated surgery is going to be appropriate. (units unknown) (unknown) (unknown) (no date) (unknown) (unknown) with no benefi t from recent Medrol Dosepak. He is given IM Dilaudid for pain (units unknown) (unknown) (unknown) (no date) (unknown) (unknown) with surgery anticipated in the next 4-6 weeks. Significant sleep deprivation (units unknown) (unknown) Result panel 53 (unknown) (no date) (unknown) (unknown) (no value) (units unknown) (unknown) (unknown) (no date) (unknown) (unknown) <Electronicall y signed by Wandy Evans MD> (units unknown) (unknown) (unknown) (no date) (unknown) (unknown) 00:53 (units unknown) (unknown) (unknown) (no date) (unknown) (unknown) 07/05/22 (units unknown) (unknown) (unknown) (no date) (unknown) (unknown) 07/06/22 0136 (units unknown) (unknown) (unknown) (no date) (unknown) (unknown) 1 tab PO Q6H P RN (Reason: pain) Qty: 20 0RF (units unknown) (unknown) (unknown) (no date) (unknown) (unknown) 19:49 07/05/22 (unit s unknown) (unknown) (unknown) (no date) (unknown) (unknown) 2 mg PO Q8H PRN (uni ts unknown) (unknown) (unknown) (no date) (unknown) (unknown) 2 weeks ago an d was seen with pain complaints in this emergency department on (units unknown) (unknown) (unknown) (no date) (unknown) (unknown) 20 mg PO DAILY (unit s unknown) (unknown) (unknown) (no date) (unknown) (unknown) 200 mg PO TID (units unknown) (unknown) (unknown) (no date) (unknown) (unknown) 22:00 07/06/22 (unit s unknown) (unknown) (unknown) (no date) (unknown) (unknown) 325 mg PO DAILY (uni ts unknown) (unknown) (unknown) (no date) (unknown) (unknown) 47-year-old ge ntleman with history of significant back pain, 3 spine surgeries, (units unknown) (unknown) (unknown) (no date) (unknown) (unknown) 50 mg PO TID P RN (Reason: pain) Qty: 30 1RF (units unknown) (unknown) (unknown) (no date) (unknown) (unknown) 60 mg PO DAILY (unit s unknown) (unknown) (unknown) (no date) (unknown) (unknown) 750 mg PO Q8H PRN (Reason: muscle pain) Qty: 30 0RF (units unknown) (unknown) (unknown) (no date) (unknown) (unknown) 990 (units unknown) (unknown) (unknown) (no date) (unknown) (unknown) Activity Restrictions/Additiona l Instructions: (units unknown) (unknown) (unknown) (no date) (unknown) (unknown) Age/Sex: 47 / M (uni ts unknown) (unknown) (unknown) (no date) (unknown) (unknown) Allergies (units unknown) (unknown) (unknown) (no date) (unknown) (unknown) Allergy/AdvRea c Type Severity Reaction Status Date / Time (units unknown) (unknown) (unknown) (no date) (unknown) (unknown) At this time, I am not concerned that you have new findings, infection or (units unknown) (unknown) (unknown) (no date) (unknown) (unknown) Back: There is no point tenderness along the lumbar spine. Surgical site there (units unknown) (unknown) (unknown) (no date) (unknown) (unknown) Blood Pressure 149/101 H 07/05/22 19:49 (units unknown) (unknown) (unknown) (no date) (unknown) (unknown) Blood Pressure 149/101 H 162/90 H 138/95 H (units unknown) (unknown) (unknown) (no date) (unknown) (unknown) CC: Progressiv e radicular pain now involving the right side. This is an acute (units unknown) (unknown) (unknown) (no date) (unknown) (unknown) Chief Complain t: Back Pain/Injury (units unknown) (unknown) (unknown) (no date) (unknown) (unknown) Chronic low back parish n (units unknown) (unknown) (unknown) (no date) (unknown) (unknown) Chronic low ba ck pain, Fusion of lumbar spine, Lumbar spinal stenosis due to (units unknown) (unknown) (unknown) (no date) (unknown) (unknown) Clinical Impression: (units unknown) (unknown) (unknown) (no date) (unknown) (unknown) Complicating co-morbidities: Multiple prior spine surgeries, known multilevel (units unknown) (unknown) (unknown) (no date) (unknown) (unknown) Course (units unknown) (unknown) (unknown) (no date) (unknown) (unknown) : 5 Acct:[id number] (units unknown) (unknown) (unknown) (no date) (unknown) (unknown) Data collected from: patient, (units unknown) (unknown) (unknown) (no date) (unknown) (unknown) Date of Servic e: 07/05/22 (units unknown) (unknown) (unknown) (no date) (unknown) (unknown) Departure (units unknown) (unknown) (unknown) (no date) (unknown) (unknown) Differential considered: Progression of chronic disease, inflammation, epidural (units unknown) (unknown) (unknown) (no date) (unknown) (unknown) Discharge Plan (unit s unknown) (unknown) (unknown) (no date) (unknown) (unknown) Discontinued Medications (units unknown) (unknown) (unknown) (no date) (unknown) (unknown) Discussion: 47-year-old gentleman with significant radicular back pain, spinal (units unknown) (unknown) (unknown) (no date) (unknown) (unknown) ER Physician: Wandy Evans MD (units unknown) (unknown) (unknown) (no date) (unknown) (unknown) Emergency Report (un its unknown) (unknown) (unknown) (no date) (unknown) (unknown) Exam documente d above, pertinent findings include: Radicular pain down both (units unknown) (unknown) (unknown) (no date) (unknown) (unknown) Exam (units unknown) (unknown) (unknown) (no date) (unknown) (unknown) Fusion of lumbar spi ne (units unknown) (unknown) (unknown) (no date) (unknown) (unknown) General (units unknown) (unknown) (unknown) (no date) (unknown) (unknown) General: Alert appropriate in no acute distress (units unknown) (unknown) (unknown) (no date) (unknown) (unknown) HPI - Back Pain/Inju ry (units unknown) (unknown) (unknown) (no date) (unknown) (unknown) HPI Narrative: (unit s unknown) (unknown) (unknown) (no date) (unknown) (unknown) History of Pre sent Illness (units unknown) (unknown) (unknown) (no date) (unknown) (unknown) Home Medications (un its unknown) (unknown) (unknown) (no date) (unknown) (unknown) Hydromorphone HCl (Hydromorphone 1 Mg Inj) 2 mg IM NOW ONE (units unknown) (unknown) (unknown) (no date) (unknown) (unknown) I am sorry johnson t you are suffering with this back pain. (units unknown) (unknown) (unknown) (no date) (unknown) (unknown) I have given y ou a prescription for Percocet, please use this sparingly. I (units unknown) (unknown) (unknown) (no date) (unknown) (unknown) I have given y ou a shot of Dilaudid and a prescription for Percocet to use for (units unknown) (unknown) (unknown) (no date) (unknown) (unknown) If you find th at you are getting worse or develop any new symptoms, please feel (units unknown) (unknown) (unknown) (no date) (unknown) (unknown) Imaging studie s independently reviewed: MR spine from 06/28/2022, 06/07/2022 (units unknown) (unknown) (unknown) (no date) (unknown) (unknown) Initial Vital Signs (units unknown) (unknown) (unknown) (no date) (unknown) (unknown) Initial Vital Signs: (units unknown) (unknown) (unknown) (no date) (unknown) (unknown) Instructions: DI for Back Pain With Sciatica (units unknown) (unknown) (unknown) (no date) (unknown) (unknown) [address] [address] (units unknown) (unknown) (unknown) (no date) (unknown) (unknown) Lumbar radiculopathy (units unknown) (unknown) (unknown) (no date) (unknown) (unknown) 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 (units unknown) (unknown) (unknown) (no date) (unknown) (unknown) MDM - Back Pain/Inju ry (units unknown) (unknown) (unknown) (no date) (unknown) (unknown) MDM Narrative (units unknown) (unknown) (unknown) (no date) (unknown) (unknown) June 28. At th at point an MRI of the lumbar spine was done that did not show (units unknown) (unknown) (unknown) (no date) (unknown) (unknown) June 30 he was given dexamethasone taper. He is had steroid tapers and number (units unknown) (unknown) (unknown) (no date) (unknown) (unknown) Medical Histor y (units unknown) (unknown) (unknown) (no date) (unknown) (unknown) Medical decisi on making narrative: (units unknown) (unknown) (unknown) (no date) (unknown) (unknown) Medical record s reviewed: MRI of the lumbar spine on 06/07/2022 and 06/28/2022 (units unknown) (unknown) (unknown) (no date) (unknown) (unknown) Medication Instructions Recorded Confirmed (units unknown) (unknown) (unknown) (no date) (unknown) (unknown) Medication Instructions Recorded (units unknown) (unknown) (unknown) (no date) (unknown) (unknown) Miscellaneous, DoctorMD [Primary Care Provider] (units unknown) (unknown) (unknown) (no date) (unknown) (unknown) Narrative: (units unknown) (unknown) (unknown) (no date) (unknown) (unknown) Neurologic: He is able to walk without significant weakness in either leg., (units unknown) (unknown) (unknown) (no date) (unknown) (unknown) New (units unknown) (unknown) (unknown) (no date) (unknown) (unknown) No Action (units unknown) (unknown) (unknown) (no date) (unknown) (unknown) ONE (units unknown) (unknown) (unknown) (no date) (unknown) (unknown) Ordered: (units unknown) (unknown) (unknown) (no date) (unknown) (unknown) Orders (units unknown) (unknown) (unknown) (no date) (unknown) (unknown) Oxycodone/Acet aminophe n (Oxycodone/Apap 5/325 Prepack) 1 bottle MISC SEEINSTR (units unknown) (unknown) (unknown) (no date) (unknown) (unknown) Oxygen Deliver y Method Room Air 07/05/22 19:49 (units unknown) (unknown) (unknown) (no date) (unknown) (unknown) Oxygen Deliver y Method Room Air Room Air Room Air (units unknown) (unknown) (unknown) (no date) (unknown) (unknown) Patellar and a nkle reflexes are symmetrical bilaterally. Right leg also has 5/5 (units unknown) (unknown) (unknown) (no date) (unknown) (unknown) Patient Comments: (u nits unknown) (unknown) (unknown) (no date) (unknown) (unknown) Patient Dispos ition: Home (units unknown) (unknown) (unknown) (no date) (unknown) (unknown) Patient History (uni ts unknown) (unknown) (unknown) (no date) (unknown) (unknown) Patient: Kishor Carrasquillo MR#: [id number] (units unknown) (unknown) (unknown) (no date) (unknown) (unknown) Persistent parish n and significant sleep deprivation (units unknown) (unknown) (unknown) (no date) (unknown) (unknown) Pertinent posi tive and negative findings as per HPI (units unknown) (unknown) (unknown) (no date) (unknown) (unknown) Please contact your spine surgeon tomorrow to let him know of the events, the (units unknown) (unknown) (unknown) (no date) (unknown) (unknown) Please make tyler re you add MiraLax into your daily regimen to prevent (units unknown) (unknown) (unknown) (no date) (unknown) (unknown) Prescriptions: (unit s unknown) (unknown) (unknown) (no date) (unknown) (unknown) Previous Rx's (units unknown) (unknown) (unknown) (no date) (unknown) (unknown) [place] by Dr. Mosley, surgery is scheduled in the next 4-6 weeks for this (units unknown) (unknown) (unknown) (no date) (unknown) (unknown) Psych: appropr iate insight and affect, cooperative (units unknown) (unknown) (unknown) (no date) (unknown) (unknown) Pulse Oximetry 99 07/05/22 19:49 (units unknown) (unknown) (unknown) (no date) (unknown) (unknown) Pulse Oximetry 99 98 98 (units unknown) (unknown) (unknown) (no date) (unknown) (unknown) Pulse Rate 102 H 07/05/22 19:49 (units unknown) (unknown) (unknown) (no date) (unknown) (unknown) Pulse Rate 102 H 80 84 (units unknown) (unknown) (unknown) (no date) (unknown) (unknown) Referrals: (units unknown) (unknown) (unknown) (no date) (unknown) (unknown) Related Data (units unknown) (unknown) (unknown) (no date) (unknown) (unknown) Respiratory Ra te 18 07/05/22 19:49 (units unknown) (unknown) (unknown) (no date) (unknown) (unknown) Respiratory Ra te 18 18 18 (units unknown) (unknown) (unknown) (no date) (unknown) (unknown) Respiratory: A ble to speak in full sentences, no obvious respiratory distress (units unknown) (unknown) (unknown) (no date) (unknown) (unknown) Review of Systems (u nits unknown) (unknown) (unknown) (no date) (unknown) (unknown) Signed By: (units unknown) (unknown) (unknown) (no date) (unknown) (unknown) Skin: No obvio us rashes, warm and dry (units unknown) (unknown) (unknown) (no date) (unknown) (unknown) Smoking Status : Never smoker (units unknown) (unknown) (unknown) (no date) (unknown) (unknown) Social History (units unknown) (unknown) (unknown) (no date) (unknown) (unknown) Social determi nants of health that may influence the patients condition: (units unknown) (unknown) (unknown) (no date) (unknown) (unknown) Source: patient (uni ts unknown) (unknown) (unknown) (no date) (unknown) (unknown) Stand Alone [facility] [place]: Patient Portal/API (units unknown) (unknown) (unknown) (no date) (unknown) (unknown) Stated Complai nt: BACK PAIN (units unknown) (unknown) (unknown) (no date) (unknown) (unknown) Stop: 07/06/22 01:15 (units unknown) (unknown) (unknown) (no date) (unknown) (unknown) Substance Use Type: does not use (units unknown) (unknown) (unknown) (no date) (unknown) (unknown) TAKE ONE CAPSU LE BY MOUTH THREE TIMES DAILY (units unknown) (unknown) (unknown) (no date) (unknown) (unknown) Temperature 97 .5 F L 07/05/22 19:49 (units unknown) (unknown) (unknown) (no date) (unknown) (unknown) Temperature 97.5 F L (units unknown) (unknown) (unknown) (no date) (unknown) (unknown) Time Seen by Wesley gann: 07/05/22 19:56 (units unknown) (unknown) (unknown) (no date) (unknown) (unknown) Toradol a numb er of times and notes that too has not been particularly (units unknown) (unknown) (unknown) (no date) (unknown) (unknown) Treatments: IM Dilaudid, 2 mg, Percocet take-home pack (units unknown) (unknown) (unknown) (no date) (unknown) (unknown) Vital Signs - 8 hr ( units unknown) (unknown) (unknown) (no date) (unknown) (unknown) Vital Signs (units unknown) (unknown) (unknown) (no date) (unknown) (unknown) Vital signs: (units unknown) (unknown) (unknown) (no date) (unknown) (unknown) abscess (units unknown) (unknown) (unknown) (no date) (unknown) (unknown) abscess. 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 He currently is taking tramadol Lyrica and Tylenol. On (units unknown) (unknown) (unknown) (no date) (unknown) (unknown) basis. (units unknown) (unknown) (unknown) (no date) (unknown) (unknown) canal stenosis as well as foraminal stenoses, moderate chronic T12 compression (units unknown) (unknown) (unknown) (no date) (unknown) (unknown) consistent wit h plans for upcoming surgery. In the meantime, the patient is (units unknown) (unknown) (unknown) (no date) (unknown) (unknown) constipation. (units unknown) (unknown) (unknown) (no date) (unknown) (unknown) control and prescription for Percocet, 20. Pills. He will be following up with (units unknown) (unknown) (unknown) (no date) (unknown) (unknown) decreased sens ation in the posterior portion of the leg calf and foot including (units unknown) (unknown) (unknown) (no date) (unknown) (unknown) do not show significant progression of symptoms. The June 28, 2022 exam was after (units unknown) (unknown) (unknown) (no date) (unknown) (unknown) duloxetine 60 mg capsule,delayed 60 mg PO DAILY 06/14/22 07/03/22 (units unknown) (unknown) (unknown) (no date) (unknown) (unknown) duloxetine 60 mg capsule,delayed release(DR/EC) (units unknown) (unknown) (unknown) (no date) (unknown) (unknown) effective. Had a gastric bypass and can not use nonsteroidals on a regular (units unknown) (unknown) (unknown) (no date) (unknown) (unknown) encourage him to continue Lyrica and Tylenol. He is aware that Percocet does (units unknown) (unknown) (unknown) (no date) (unknown) (unknown) epidural absce ss or infection but did suggest significant pathology that is (units unknown) (unknown) (unknown) (no date) (unknown) (unknown) epidural acces s that would require additional workup or hospitalization today. (units unknown) (unknown) (unknown) (no date) (unknown) (unknown) ferrous sulfat e 325 mg (65 mg 325 mg PO DAILY 07/03/22 07/03/22 (units unknown) (unknown) (unknown) (no date) (unknown) (unknown) ferrous sulfat e 325 mg (65 mg iron) tablet (units unknown) (unknown) (unknown) (no date) (unknown) (unknown) fevers, cough, chills. He did have an epidural steroid injection approximately (units unknown) (unknown) (unknown) (no date) (unknown) (unknown) fracture. (units unknown) (unknown) (unknown) (no date) (unknown) (unknown) free to return to the emergency department for further evaluation. (units unknown) (unknown) (unknown) (no date) (unknown) (unknown) have Tylenol i n it. We also talked about the importance of stool softeners to (units unknown) (unknown) (unknown) (no date) (unknown) (unknown) he has not bee n able sleep for the last 48 hours secondary to pain and today is (units unknown) (unknown) (unknown) (no date) (unknown) (unknown) his orthopedic surgeon tomorrow to talk about timing of surgery and continued (units unknown) (unknown) (unknown) (no date) (unknown) (unknown) increased pain and work out an appropriate pain plan to get you through to your (units unknown) (unknown) (unknown) (no date) (unknown) (unknown) incredibly uncomfortable and requesting help with pain control to try and get (units unknown) (unknown) (unknown) (no date) (unknown) (unknown) iron) tablet (units unknown) (unknown) (unknown) (no date) (unknown) (unknown) is healing nicely (u nits unknown) (unknown) (unknown) (no date) (unknown) (unknown) issue. He is h aving increasing pain and numbness on the left side, reports that (units unknown) (unknown) (unknown) (no date) (unknown) (unknown) knee and sligh t decreased sensation over the dorsum of his foot. Describes no (units unknown) (unknown) (unknown) (no date) (unknown) (unknown) legs with norm al reflexes, normal strength and no evidence of point tenderness (units unknown) (unknown) (unknown) (no date) (unknown) (unknown) methocarbamol 750 mg tablet 750 mg PO Q8H PRN muscle pain #30 06/07/22 (units unknown) (unknown) (unknown) (no date) (unknown) (unknown) methocarbamol 750 mg tablet (units unknown) (unknown) (unknown) (no date) (unknown) (unknown) mg tablet (units unknown) (unknown) (unknown) (no date) (unknown) (unknown) milk Allergy M ild Verified 07/05/22 19:53 (units unknown) (unknown) (unknown) (no date) (unknown) (unknown) necessary to a t least get some sleep. (units unknown) (unknown) (unknown) (no date) (unknown) (unknown) neurosurgical emergency and outpatient pain control until he is able to follow (units unknown) (unknown) (unknown) (no date) (unknown) (unknown) noticing pain radiating down the right leg with muscle cramping just above his (units unknown) (unknown) (unknown) (no date) (unknown) (unknown) of times notes that it really has not been effective with any of them. Tried (units unknown) (unknown) (unknown) (no date) (unknown) (unknown) omeprazole 20 mg capsule,delayed 20 mg PO DAILY 06/14/22 07/03/22 (units unknown) (unknown) (unknown) (no date) (unknown) (unknown) omeprazole 20 mg capsule,delayed release(DR/EC) (units unknown) (unknown) (unknown) (no date) (unknown) (unknown) oxycodone-acet aminophe n 5 mg-325 1 tab PO Q6H PRN pain #20 tabs 07/06/22 (units unknown) (unknown) (unknown) (no date) (unknown) (unknown) oxycodone-acet aminophe n 5-325 mg tablet (units unknown) (unknown) (unknown) (no date) (unknown) (unknown) pain. Narcotic s for chronic pain and never the answer but sometimes are (units unknown) (unknown) (unknown) (no date) (unknown) (unknown) pregabalin 200 mg capsule 200 mg PO TID 06/14/22 07/03/22 (units unknown) (unknown) (unknown) (no date) (unknown) (unknown) pregabalin 200 mg capsule (units unknown) (unknown) (unknown) (no date) (unknown) (unknown) prevent [place] bol[place]. At this point I do not think that this is an acute (units unknown) (unknown) (unknown) (no date) (unknown) (unknown) problem exacer bating his chronic issues with uncertain prognosis (units unknown) (unknown) (unknown) (no date) (unknown) (unknown) progressive paresthesias and weakness worse on the left side followed at (units unknown) (unknown) (unknown) (no date) (unknown) (unknown) recent spinal epidural injection and did not show any evidence of epidural (units unknown) (unknown) (unknown) (no date) (unknown) (unknown) release (units unknown) (unknown) (unknown) (no date) (unknown) (unknown) stenosis, T12 compression fracture with progression of his radicular symptoms (units unknown) (unknown) (unknown) (no date) (unknown) (unknown) strength. Slig ht decreased sensation on the dorsum of the foot. (units unknown) (unknown) (unknown) (no date) (unknown) (unknown) surgery. (units unknown) (unknown) (unknown) (no date) (unknown) (unknown) tabs (units unknown) (unknown) (unknown) (no date) (unknown) (unknown) the top of the foot compared to the right side. He does have 5/5 strength. (units unknown) (unknown) (unknown) (no date) (unknown) (unknown) tizanidine 2 m g capsule 2 mg PO Q8H PRN 07/03/22 07/03/22 (units unknown) (unknown) (unknown) (no date) (unknown) (unknown) tizanidine 2 m g capsule (units unknown) (unknown) (unknown) (no date) (unknown) (unknown) tramadol 50 mg tablet 50 mg PO TID PRN pain #30 tabs 07/03/22 (units unknown) (unknown) (unknown) (no date) (unknown) (unknown) tramadol 50 mg table t (units unknown) (unknown) (unknown) (no date) (unknown) (unknown) treatment of h is pain. At this point clearly his tramadol is not working. Did (units unknown) (unknown) (unknown) (no date) (unknown) (unknown) up with his tyler rgeon and anticipated surgery is going to be appropriate. (units unknown) (unknown) (unknown) (no date) (unknown) (unknown) with no benefi t from recent Medrol Dosepak. He is given IM Dilaudid for pain (units unknown) (unknown) (unknown) (no date) (unknown) (unknown) with surgery anticipated in the next 4-6 weeks. Significant sleep deprivation (units unknown) (unknown) (unknown) (no date) (unknown) (unknown) would recommen d not mixing this with tramadol. It is appropriate take with your (units unknown) (unknown) Result panel 54 (unknown) (no date) (unknown) (unknown) (no value) (units unknown) (unknown) (unknown) (no date) (unknown) (unknown) 1 tab PO Q6H P RN (Reason: pain) Qty: 20 0RF (units unknown) (unknown) (unknown) (no date) (unknown) (unknown) 2 mg PO Q8H PRN (uni ts unknown) (unknown) (unknown) (no date) (unknown) (unknown) 20 mg PO DAILY (unit s unknown) (unknown) (unknown) (no date) (unknown) (unknown) 200 mg PO TID (units unknown) (unknown) (unknown) (no date) (unknown) (unknown) 325 mg PO DAILY (uni ts unknown) (unknown) (unknown) (no date) (unknown) (unknown) 50 mg PO TID P RN (Reason: pain) Qty: 30 1RF (units unknown) (unknown) (unknown) (no date) (unknown) (unknown) 60 mg PO DAILY (unit s unknown) (unknown) (unknown) (no date) (unknown) (unknown) 750 mg PO Q8H PRN (Reason: muscle pain) Qty: 30 0RF (units unknown) (unknown) (unknown) (no date) (unknown) (unknown) 990 (units unknown) (unknown) (unknown) (no date) (unknown) (unknown) Age/Sex: 47 / M (uni ts unknown) (unknown) (unknown) (no date) (unknown) (unknown) Allergies (units unknown) (unknown) (unknown) (no date) (unknown) (unknown) Allergy/AdvRea c Type Severity Reaction Status Date / Time (units unknown) (unknown) (unknown) (no date) (unknown) (unknown) Chronic low back [place] (units unknown) (unknown) (unknown) (no date) (unknown) (unknown) : 5 Acct:[id number] (units unknown) (unknown) (unknown) (no date) (unknown) (unknown) Date of Servic e: 07/15/22 (units unknown) (unknown) (unknown) (no date) (unknown) (unknown) Departure (units unknown) (unknown) (unknown) (no date) (unknown) (unknown) Discharge Plan (unit s unknown) (unknown) (unknown) (no date) (unknown) (unknown) ER Physician: Jesus Wright D.O. (units unknown) (unknown) (unknown) (no date) (unknown) (unknown) Emergency Report (un its unknown) (unknown) (unknown) (no date) (unknown) (unknown) Fusion of lumbar spi ne (units unknown) (unknown) (unknown) (no date) (unknown) (unknown) General (units unknown) (unknown) (unknown) (no date) (unknown) (unknown) HPI - General Adult (units unknown) (unknown) (unknown) (no date) (unknown) (unknown) Home Medications (un its unknown) (unknown) (unknown) (no date) (unknown) (unknown) [address] [address] (units unknown) (unknown) (unknown) (no date) (unknown) (unknown) Lumbar radiculopathy (units unknown) (unknown) (unknown) (no date) (unknown) (unknown) Lumbar spinal stenosis due to 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 (units unknown) (unknown) (unknown) (no date) (unknown) (unknown) Medical Histor y (units unknown) (unknown) (unknown) (no date) (unknown) (unknown) Medication Instructions Recorded Confirmed (units unknown) (unknown) (unknown) (no date) (unknown) (unknown) Medication Instructions Recorded (units unknown) (unknown) (unknown) (no date) (unknown) (unknown) Miscellaneous, DoctorMD [Primary Care Provider] (units unknown) (unknown) (unknown) (no date) (unknown) (unknown) No Action (units unknown) (unknown) (unknown) (no date) (unknown) (unknown) Patient Comments: (u nits unknown) (unknown) (unknown) (no date) (unknown) (unknown) Patient History (uni ts unknown) (unknown) (unknown) (no date) (unknown) (unknown) Patient: Kishor Carrasquillo MR#: [id number] (units unknown) (unknown) (unknown) (no date) (unknown) (unknown) Prescriptions: (unit s unknown) (unknown) (unknown) (no date) (unknown) (unknown) Previous Rx's (units unknown) (unknown) (unknown) (no date) (unknown) (unknown) Referrals: (units unknown) (unknown) (unknown) (no date) (unknown) (unknown) Related Data (units unknown) (unknown) (unknown) (no date) (unknown) (unknown) Signed By: (units unknown) (unknown) (unknown) (no date) (unknown) (unknown) Smoking Status : Never smoker (units unknown) (unknown) (unknown) (no date) (unknown) (unknown) Social History (units unknown) (unknown) (unknown) (no date) (unknown) (unknown) Stated complai nt: back hurting (units unknown) (unknown) (unknown) (no date) (unknown) (unknown) Substance Use Type: does not use (units unknown) (unknown) (unknown) (no date) (unknown) (unknown) TAKE ONE CAPSU LE BY MOUTH THREE TIMES DAILY (units unknown) (unknown) (unknown) (no date) (unknown) (unknown) Time Seen by Wesley gann: 07/15/22 08:58 (units unknown) (unknown) (unknown) (no date) (unknown) (unknown) alcohol intake frequency: 0-2 drinks per day (units unknown) (unknown) (unknown) (no date) (unknown) (unknown) duloxetine 60 mg capsule,delayed 60 mg PO DAILY 06/14/22 07/03/22 (units unknown) (unknown) (unknown) (no date) (unknown) (unknown) duloxetine 60 mg capsule,delayed release(DR/EC) (units unknown) (unknown) (unknown) (no date) (unknown) (unknown) ferrous sulfat e 325 mg (65 mg 325 mg PO DAILY 07/03/22 07/03/22 (units unknown) (unknown) (unknown) (no date) (unknown) (unknown) ferrous sulfat e 325 mg (65 mg iron) tablet (units unknown) (unknown) (unknown) (no date) (unknown) (unknown) iron) tablet (units unknown) (unknown) (unknown) (no date) (unknown) (unknown) methocarbamol 750 mg tablet 750 mg PO Q8H PRN muscle pain #30 06/07/22 (units unknown) (unknown) (unknown) (no date) (unknown) (unknown) methocarbamol 750 mg tablet (units unknown) (unknown) (unknown) (no date) (unknown) (unknown) mg tablet (units unknown) (unknown) (unknown) (no date) (unknown) (unknown) milk Allergy M ild Verified 07/05/22 19:53 (units unknown) (unknown) (unknown) (no date) (unknown) (unknown) omeprazole 20 mg capsule,delayed 20 mg PO DAILY 06/14/22 07/03/22 (units unknown) (unknown) (unknown) (no date) (unknown) (unknown) omeprazole 20 mg capsule,delayed release(DR/EC) (units unknown) (unknown) (unknown) (no date) (unknown) (unknown) oxycodone-acet aminophe n 5 mg-325 1 tab PO Q6H PRN pain #20 tabs 07/06/22 (units unknown) (unknown) (unknown) (no date) (unknown) (unknown) oxycodone-acet aminophe n 5-325 mg tablet (units unknown) (unknown) (unknown) (no date) (unknown) (unknown) pregabalin 200 mg capsule 200 mg PO TID 06/14/22 07/03/22 (units unknown) (unknown) (unknown) (no date) (unknown) (unknown) pregabalin 200 mg capsule (units unknown) (unknown) (unknown) (no date) (unknown) (unknown) release (units unknown) (unknown) (unknown) (no date) (unknown) (unknown) tabs (units unknown) (unknown) (unknown) (no date) (unknown) (unknown) tizanidine 2 m g capsule 2 mg PO Q8H PRN 07/03/22 07/03/22 (units unknown) (unknown) (unknown) (no date) (unknown) (unknown) tizanidine 2 m g capsule (units unknown) (unknown) (unknown) (no date) (unknown) (unknown) tramadol 50 mg tablet 50 mg PO TID PRN pain #30 tabs 07/03/22 (units unknown) (unknown) (unknown) (no date) (unknown) (unknown) tramadol 50 mg table t (units unknown) (unknown) Result panel 55 (unknown) (no date) (unknown) (unknown) (no value) (units unknown) (unknown) (unknown) (no date) (unknown) (unknown) *Please contin ue to take your regular medications as directed. (units unknown) (unknown) (unknown) (no date) (unknown) (unknown) *Please follow up with your primary care provider in 2-3 days, call for an (units unknown) (unknown) (unknown) (no date) (unknown) (unknown) *Return to [facility] rgency Department if you should have any new, worsening or (units unknown) (unknown) (unknown) (no date) (unknown) (unknown) *What to do: (units unknown) (unknown) (unknown) (no date) (unknown) (unknown) *You have been diagnosed with [ acute on chronic lumbar radiculopathy with (units unknown) (unknown) (unknown) (no date) (unknown) (unknown) 07/15/22 (units unknown) (unknown) (unknown) (no date) (unknown) (unknown) 09:04 (units unknown) (unknown) (unknown) (no date) (unknown) (unknown) 1 tab PO Q6H P RN (Reason: pain) Qty: 20 0RF (units unknown) (unknown) (unknown) (no date) (unknown) (unknown) 12 point revie w of systems is negative except for those stated above (units unknown) (unknown) (unknown) (no date) (unknown) (unknown) 2 mg PO Q8H PRN (uni ts unknown) (unknown) (unknown) (no date) (unknown) (unknown) 20 mg PO DAILY (unit s unknown) (unknown) (unknown) (no date) (unknown) (unknown) 200 mg PO TID (units unknown) (unknown) (unknown) (no date) (unknown) (unknown) 325 mg PO DAILY (uni ts unknown) (unknown) (unknown) (no date) (unknown) (unknown) 47-year-old ma nathan nonsmoker with extensive history of chronic back pain with (units unknown) (unknown) (unknown) (no date) (unknown) (unknown) 5 mg PO Q8H OR N (Reason: pain (scale score 7-10)) Qty: 10 0RF (units unknown) (unknown) (unknown) (no date) (unknown) (unknown) 50 mg PO TID P RN (Reason: pain) Qty: 30 1RF (units unknown) (unknown) (unknown) (no date) (unknown) (unknown) 60 mg PO DAILY (unit s unknown) (unknown) (unknown) (no date) (unknown) (unknown) 7-10) #10 tabs (unit s unknown) (unknown) (unknown) (no date) (unknown) (unknown) 750 mg PO Q8H PRN (Reason: muscle pain) Qty: 30 0RF (units unknown) (unknown) (unknown) (no date) (unknown) (unknown) 990 (units unknown) (unknown) (unknown) (no date) (unknown) (unknown) Activity Restrictions/Additiona l Instructions: (units unknown) (unknown) (unknown) (no date) (unknown) (unknown) Additionally, you cannot sign legal documents or perform any duties such as (units unknown) (unknown) (unknown) (no date) (unknown) (unknown) Age/Sex: 47 / M (uni ts unknown) (unknown) (unknown) (no date) (unknown) (unknown) Allergies (units unknown) (unknown) (unknown) (no date) (unknown) (unknown) Allergy/AdvRea c Type Severity Reaction Status Date / Time (units unknown) (unknown) (unknown) (no date) (unknown) (unknown) BACK: Back ten kael but free of any obvious external abnormalities. Patient exam (units unknown) (unknown) (unknown) (no date) (unknown) (unknown) Blood Pressure 132/91 H 07/15/22 09:04 (units unknown) (unknown) (unknown) (no date) (unknown) (unknown) Blood Pressure 132/91 H (units unknown) (unknown) (unknown) (no date) (unknown) (unknown) CARDIOVASCULAR : Denies chest pain, palpitations, orthopnea, edema, (units unknown) (unknown) (unknown) (no date) (unknown) (unknown) CARDIOVASCULAR : Regular rate and rhythm without murmurs, gallops, or rubs. (units unknown) (unknown) (unknown) (no date) (unknown) (unknown) Chief complain t: Back Pain/Injury (units unknown) (unknown) (unknown) (no date) (unknown) (unknown) Chronic low [place] (units unknown) (unknown) (unknown) (no date) (unknown) (unknown) Clinical Impression: (units unknown) (unknown) (unknown) (no date) (unknown) (unknown) Course (units unknown) (unknown) (unknown) (no date) (unknown) (unknown) : 5 Acct:[id number] (units unknown) (unknown) (unknown) (no date) (unknown) (unknown) Date of Servic e: 07/15/22 (units unknown) (unknown) (unknown) (no date) (unknown) (unknown) Departure (units unknown) (unknown) (unknown) (no date) (unknown) (unknown) Discharge Plan (unit s unknown) (unknown) (unknown) (no date) (unknown) (unknown) Discontinued Medications (units unknown) (unknown) (unknown) (no date) (unknown) (unknown) ENT: Nose with out bleeding, purulent drainage. Throat without erythema, (units unknown) (unknown) (unknown) (no date) (unknown) (unknown) ER Physician: Jesus Wright D.O. (units unknown) (unknown) (unknown) (no date) (unknown) (unknown) EXTREMITIES: N o edema or joint tenderness. (units unknown) (unknown) (unknown) (no date) (unknown) (unknown) EYES: Pupils e qual round and reactive. Extraocular motions intact. No scleral (units unknown) (unknown) (unknown) (no date) (unknown) (unknown) Emergency Report (un its unknown) (unknown) (unknown) (no date) (unknown) (unknown) Exam Narrative: (uni ts unknown) (unknown) (unknown) (no date) (unknown) (unknown) Exam (units unknown) (unknown) (unknown) (no date) (unknown) (unknown) Findings and d ischarge diagnosis discussed with patient/family followed by (units unknown) (unknown) (unknown) (no date) (unknown) (unknown) Fusion of lumbar spi ne (units unknown) (unknown) (unknown) (no date) (unknown) (unknown) GASTROINTESTIN AL: Abdomen soft, non-tender, nondistended. (units unknown) (unknown) (unknown) (no date) (unknown) (unknown) GASTROINTESTIN AL: Denies nausea, vomiting, abdominal pain, diarrhea, (units unknown) (unknown) (unknown) (no date) (unknown) (unknown) GENERAL: Denie s chills, fatigue, malaise, fever, sweats. (units unknown) (unknown) (unknown) (no date) (unknown) (unknown) GENERAL: [47] year old patient appears stated age. Well-developed patient, in (units unknown) (unknown) (unknown) (no date) (unknown) (unknown) : Denies dys uria, frequency, incontinence, hematuria, urinary retention. (units unknown) (unknown) (unknown) (no date) (unknown) (unknown) General (units unknown) (unknown) (unknown) (no date) (unknown) (unknown) HEAD: Atraumat ic. Normocephalic. (units unknown) (unknown) (unknown) (no date) (unknown) (unknown) HEENT: Denies sinus pain, ear pain, sore throat, difficulty swallowing, (units unknown) (unknown) (unknown) (no date) (unknown) (unknown) HPI - General Adult (units unknown) (unknown) (unknown) (no date) (unknown) (unknown) HPI narrative: (unit s unknown) (unknown) (unknown) (no date) (unknown) (unknown) He is managed by Dr. Mosley at [facility] And expects to hear about the (units unknown) (unknown) (unknown) (no date) (unknown) (unknown) History of Pre sent Illness (units unknown) (unknown) (unknown) (no date) (unknown) (unknown) Home Medications (un its unknown) (unknown) (unknown) (no date) (unknown) (unknown) Hydromorphone HCl (Hydromorphone 1 Mg Inj) 1 mg IM NOW ONE (units unknown) (unknown) (unknown) (no date) (unknown) (unknown) Initial Vital Signs (units unknown) (unknown) (unknown) (no date) (unknown) (unknown) Initial Vital Signs: (units unknown) (unknown) (unknown) (no date) (unknown) (unknown) Instructions: DI for Lumbar Radiculopathy (units unknown) (unknown) (unknown) (no date) (unknown) (unknown) [address] [address] (units unknown) (unknown) (unknown) (no date) (unknown) (unknown) Last Admin: 09:17 Dose: 1 mg (units unknown) (unknown) (unknown) (no date) (unknown) (unknown) Lumbar back pa in with radiculopathy affecting lower extremity (units unknown) (unknown) (unknown) (no date) (unknown) (unknown) Lumbar radiculopathy (units unknown) (unknown) (unknown) (no date) (unknown) (unknown) Lumbar spinal stenosis due to 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 (units unknown) (unknown) (unknown) (no date) (unknown) (unknown) MDM Narrative (units unknown) (unknown) (unknown) (no date) (unknown) (unknown) MUSCULOSKELETA L: see HPI (units unknown) (unknown) (unknown) (no date) (unknown) (unknown) June and he sta ariana it did seem to help but he is no longer on steroids (units unknown) (unknown) (unknown) (no date) (unknown) (unknown) Medical Decisi on Making (units unknown) (unknown) (unknown) (no date) (unknown) (unknown) Medical Histor y (units unknown) (unknown) (unknown) (no date) (unknown) (unknown) Medical decisi on making narrative: (units unknown) (unknown) (unknown) (no date) (unknown) (unknown) Medication Instructions Recorded Confirmed (units unknown) (unknown) (unknown) (no date) (unknown) (unknown) Medication Instructions Recorded (units unknown) (unknown) (unknown) (no date) (unknown) (unknown) Miscellaneous, DoctorMD [Primary Care Provider] (units unknown) (unknown) (unknown) (no date) (unknown) (unknown) Multiple etiol ogies for patient's symptoms considered including, but not limited (units unknown) (unknown) (unknown) (no date) (unknown) (unknown) NECK: Trachea midline. Non tender (units unknown) (unknown) (unknown) (no date) (unknown) (unknown) NEURO: AOx3. (units unknown) (unknown) (unknown) (no date) (unknown) (unknown) NEUROLOGIC: see HPI (units unknown) (unknown) (unknown) (no date) (unknown) (unknown) Narrative (units unknown) (unknown) (unknown) (no date) (unknown) (unknown) Narrative: (units unknown) (unknown) (unknown) (no date) (unknown) (unknown) New (units unknown) (unknown) (unknown) (no date) (unknown) (unknown) No Action (units unknown) (unknown) (unknown) (no date) (unknown) (unknown) Ordered: (units unknown) (unknown) (unknown) (no date) (unknown) (unknown) Orders (units unknown) (unknown) (unknown) (no date) (unknown) (unknown) Oxygen Deliver y Method Room Air 07/15/22 09:04 (units unknown) (unknown) (unknown) (no date) (unknown) (unknown) Oxygen Deliver y Method Room Air (units unknown) (unknown) (unknown) (no date) (unknown) (unknown) PSYCHIATRIC: N o concerning psychosocial issues. (units unknown) (unknown) (unknown) (no date) (unknown) (unknown) Patient Comments: (u nits unknown) (unknown) (unknown) (no date) (unknown) (unknown) Patient Dispos ition: Home (units unknown) (unknown) (unknown) (no date) (unknown) (unknown) Patient History (uni ts unknown) (unknown) (unknown) (no date) (unknown) (unknown) Patient's symp toms improved over duration of stay with above-stated therapies. (units unknown) (unknown) (unknown) (no date) (unknown) (unknown) Patient: Kishor Carrasquillo MR#: [id number] (units unknown) (unknown) (unknown) (no date) (unknown) (unknown) Please underst and that we cannot provide further refills of narcotics or (units unknown) (unknown) (unknown) (no date) (unknown) (unknown) Prescriptions: (unit s unknown) (unknown) (unknown) (no date) (unknown) (unknown) Previous Rx's (units unknown) (unknown) (unknown) (no date) (unknown) (unknown) Primary Histor mary ann: patient (units unknown) (unknown) (unknown) (no date) (unknown) (unknown) Prior Charts r eviewed in our EMR (units unknown) (unknown) (unknown) (no date) (unknown) (unknown) Pulse Oximetry 100 07/15/22 09:04 (units unknown) (unknown) (unknown) (no date) (unknown) (unknown) Pulse Oximetry 100 ( units unknown) (unknown) (unknown) (no date) (unknown) (unknown) Pulse Rate 61 07/15/22 09:04 (units unknown) (unknown) (unknown) (no date) (unknown) (unknown) Pulse Rate 61 (units unknown) (unknown) (unknown) (no date) (unknown) (unknown) RESPIRATORY: C lear to auscultation. Breath sounds equal bilaterally. No wheezes, (units unknown) (unknown) (unknown) (no date) (unknown) (unknown) RESPIRATORY: D enies dyspnea, cough, wheezing, hemoptysis, sputum. (units unknown) (unknown) (unknown) (no date) (unknown) (unknown) Referrals: (units unknown) (unknown) (unknown) (no date) (unknown) (unknown) Related Data (units unknown) (unknown) (unknown) (no date) (unknown) (unknown) Respiratory Ra te 18 07/15/22 09:04 (units unknown) (unknown) (unknown) (no date) (unknown) (unknown) Respiratory Rate 18 (units unknown) (unknown) (unknown) (no date) (unknown) (unknown) Return precaut ions discussed with patient/family whom verbalize understanding of (units unknown) (unknown) (unknown) (no date) (unknown) (unknown) Review of Systems (u nits unknown) (unknown) (unknown) (no date) (unknown) (unknown) Rx Instructions: (un its unknown) (unknown) (unknown) (no date) (unknown) (unknown) SKIN: Denies r kendra, skin lesions, or other (units unknown) (unknown) (unknown) (no date) (unknown) (unknown) SKIN: No rash or erythema of visible areas (units unknown) (unknown) (unknown) (no date) (unknown) (unknown) See Rx Instruc tions .ROUTE .COMPLEX Qty: 21 0RF (units unknown) (unknown) (unknown) (no date) (unknown) (unknown) Signed By: (units unknown) (unknown) (unknown) (no date) (unknown) (unknown) Smoking Status : Never smoker (units unknown) (unknown) (unknown) (no date) (unknown) (unknown) Social History (units unknown) (unknown) (unknown) (no date) (unknown) (unknown) Stand Alone Fo lorraine: Patient Portal/API (units unknown) (unknown) (unknown) (no date) (unknown) (unknown) Stated complai nt: back hurting (units unknown) (unknown) (unknown) (no date) (unknown) (unknown) Stop: 07/15/22 09:07 (units unknown) (unknown) (unknown) (no date) (unknown) (unknown) Substance Use Type: does not use (units unknown) (unknown) (unknown) (no date) (unknown) (unknown) TAKE ONE CAPSU LE BY MOUTH THREE TIMES DAILY (units unknown) (unknown) (unknown) (no date) (unknown) (unknown) Temperature 96 .9 F L 07/15/22 09:04 (units unknown) (unknown) (unknown) (no date) (unknown) (unknown) Temperature 96.9 F L (units unknown) (unknown) (unknown) (no date) (unknown) (unknown) Time Seen by Wesley gann: 07/15/22 08:58 (units unknown) (unknown) (unknown) (no date) (unknown) (unknown) Vital Signs - 8 hr ( units unknown) (unknown) (unknown) (no date) (unknown) (unknown) Vital Signs (units unknown) (unknown) (unknown) (no date) (unknown) (unknown) Vital signs: (units unknown) (unknown) (unknown) (no date) (unknown) (unknown) While on these medications you cannot drive or operate heavy machinery. (units unknown) (unknown) (unknown) (no date) (unknown) (unknown) You have been prescribed a short course of narcotic medications. These are (units unknown) (unknown) (unknown) (no date) (unknown) (unknown) [ ] New medica tion written as a paper prescription (units unknown) (unknown) (unknown) (no date) (unknown) (unknown) [ ] No new med ications given (units unknown) (unknown) (unknown) (no date) (unknown) (unknown) [ x] New medic ation prescriptions sent to your pharmacy: [[facility] ] (units unknown) (unknown) (unknown) (no date) (unknown) (unknown) [47] year old patient presents with Ongoing pain from known lumbar (units unknown) (unknown) (unknown) (no date) (unknown) (unknown) a dose pack (Abilio [place] ([facility])) #21 ea (units unknown) (unknown) (unknown) (no date) (unknown) (unknown) abscess versus other ] (units unknown) (unknown) (unknown) (no date) (unknown) (unknown) advisable to d alejandro stool softeners with the pharmacist when you mushroom picker your (units unknown) (unknown) (unknown) (no date) (unknown) (unknown) alcohol intake frequency: 0-2 drinks per day (units unknown) (unknown) (unknown) (no date) (unknown) (unknown) any fever or c hills, takes no anticoagulation, denies any new trauma or injury, (units unknown) (unknown) (unknown) (no date) (unknown) (unknown) appointment. L et them know you were seen in the Emergency Department and that we (units unknown) (unknown) (unknown) (no date) (unknown) (unknown) ask that you b e seen in follow up. We will electronically transmit a record of (units unknown) (unknown) (unknown) (no date) (unknown) (unknown) concerning sym ptoms, such as [fever greater than 101 F, shaking chills, (units unknown) (unknown) (unknown) (no date) (unknown) (unknown) constipation, melena . (units unknown) (unknown) (unknown) (no date) (unknown) (unknown) controlled sub stances through the ED and your pain management will need to be (units unknown) (unknown) (unknown) (no date) (unknown) (unknown) course of oxyc odone at that time. His pain is worse when he moves and improves (units unknown) (unknown) (unknown) (no date) (unknown) (unknown) denies loss of control of bowel or bladder, denies any lower extremity weakness. (units unknown) (unknown) (unknown) (no date) (unknown) (unknown) diagnosis and plan ( units unknown) (unknown) (unknown) (no date) (unknown) (unknown) difficulty. He has been seen as recently as a week or 2 ago was given a short (units unknown) (unknown) (unknown) (no date) (unknown) (unknown) dizziness. (units unknown) (unknown) (unknown) (no date) (unknown) (unknown) duloxetine 60 mg capsule,delayed 60 mg PO DAILY 06/14/22 07/03/22 (units unknown) (unknown) (unknown) (no date) (unknown) (unknown) duloxetine 60 mg capsule,delayed release(DR/EC) (units unknown) (unknown) (unknown) (no date) (unknown) (unknown) ferrous sulfat e 325 mg (65 mg 325 mg PO DAILY 07/03/22 07/03/22 (units unknown) (unknown) (unknown) (no date) (unknown) (unknown) ferrous sulfat e 325 mg (65 mg iron) tablet (units unknown) (unknown) (unknown) (no date) (unknown) (unknown) gradual progre ssion. As we discussed thankfully your history and physical exam (units unknown) (unknown) (unknown) (no date) (unknown) (unknown) icterus. No in jection or drainage. (units unknown) (unknown) (unknown) (no date) (unknown) (unknown) inflammatories due to a prior gastric bypass. His last steroid taper was early (units unknown) (unknown) (unknown) (no date) (unknown) (unknown) iron) tablet (units unknown) (unknown) (unknown) (no date) (unknown) (unknown) left lower ext remity which he reports a normal for him (units unknown) (unknown) (unknown) (no date) (unknown) (unknown) leg which is a relatively new finding. He ambulates without much in the way of (units unknown) (unknown) (unknown) (no date) (unknown) (unknown) methocarbamol 750 mg tablet 750 mg PO Q8H PRN muscle pain #30 06/07/22 (units unknown) (unknown) (unknown) (no date) (unknown) (unknown) methocarbamol 750 mg tablet (units unknown) (unknown) (unknown) (no date) (unknown) (unknown) methylpredniso lone 4 mg tablets in See Rx Instructions PO .COMPLEX 07/15/22 (units unknown) (unknown) (unknown) (no date) (unknown) (unknown) methylpredniso lone [Medrol ([facility])] 4 mg tablets,dose pack (units unknown) (unknown) (unknown) (no date) (unknown) (unknown) mg tablet (units unknown) (unknown) (unknown) (no date) (unknown) (unknown) mild distress. (unit s unknown) (unknown) (unknown) (no date) (unknown) (unknown) milk Allergy M ild Verified 07/15/22 09:06 (units unknown) (unknown) (unknown) (no date) (unknown) (unknown) multiple prior surgeries presents with ongoing radicular symptoms. He denies (units unknown) (unknown) (unknown) (no date) (unknown) (unknown) notes decrease d range of motion and muscle spasm, but no CVA tenderness, or (units unknown) (unknown) (unknown) (no date) (unknown) (unknown) omeprazole 20 mg capsule,delayed 20 mg PO DAILY 06/14/22 07/03/22 (units unknown) (unknown) (unknown) (no date) (unknown) (unknown) omeprazole 20 mg capsule,delayed release(DR/EC) (units unknown) (unknown) (unknown) (no date) (unknown) (unknown) ongoing low ba ck pain with radiation down his left leg with numbness and (units unknown) (unknown) (unknown) (no date) (unknown) (unknown) orally per pac kage directions (units unknown) (unknown) (unknown) (no date) (unknown) (unknown) oxycodone 5 mg tablet 5 mg PO Q8H PRN pain (scale score 07/15/22 (units unknown) (unknown) (unknown) (no date) (unknown) (unknown) oxycodone 5 mg table t (units unknown) (unknown) (unknown) (no date) (unknown) (unknown) oxycodone-acet aminophe n 5 mg-325 1 tab PO Q6H PRN pain #20 tabs 07/06/22 (units unknown) (unknown) (unknown) (no date) (unknown) (unknown) oxycodone-acet aminophe n 5-325 mg tablet (units unknown) (unknown) (unknown) (no date) (unknown) (unknown) patient with e xtensive back history and known lumbar radiculopathy with upcoming (units unknown) (unknown) (unknown) (no date) (unknown) (unknown) potentially da ngerous and addictive medications that should be used carefully. (units unknown) (unknown) (unknown) (no date) (unknown) (unknown) pregabalin 200 mg capsule 200 mg PO TID 06/14/22 07/03/22 (units unknown) (unknown) (unknown) (no date) (unknown) (unknown) pregabalin 200 mg capsule (units unknown) (unknown) (unknown) (no date) (unknown) (unknown) prescription. (units unknown) (unknown) (unknown) (no date) (unknown) (unknown) radiculopathy (units unknown) (unknown) (unknown) (no date) (unknown) (unknown) rales, or rhonchi. ( units unknown) (unknown) (unknown) (no date) (unknown) (unknown) release (units unknown) (unknown) (unknown) (no date) (unknown) (unknown) saddle anesthe marina, or strength. He does have decreased sensation of much of his (units unknown) (unknown) (unknown) (no date) (unknown) (unknown) specifics of h is upcoming surgery as soon as Sunday. He states that he has (units unknown) (unknown) (unknown) (no date) (unknown) (unknown) surgery has no neurosurgical complaints or findings. (units unknown) (unknown) (unknown) (no date) (unknown) (unknown) tabs (units unknown) (unknown) (unknown) (no date) (unknown) (unknown) this. Many peo ple get constipated on narcotic medications so it would be (units unknown) (unknown) (unknown) (no date) (unknown) (unknown) through your [facility] Care Provider (units unknown) (unknown) (unknown) (no date) (unknown) (unknown) tingling of th e majority of his left leg but also some pain going down his right (units unknown) (unknown) (unknown) (no date) (unknown) (unknown) tizanidine 2 m g capsule 2 mg PO Q8H PRN 07/03/22 07/03/22 (units unknown) (unknown) (unknown) (no date) (unknown) (unknown) tizanidine 2 m g capsule (units unknown) (unknown) (unknown) (no date) (unknown) (unknown) to: [ acute on chronic lumbar radiculopathy versus cauda equina versus epidural (units unknown) (unknown) (unknown) (no date) (unknown) (unknown) today's note i f your PCP is in our system (units unknown) (unknown) (unknown) (no date) (unknown) (unknown) tonsillar hype rtrophy or exudate. Airway patent. (units unknown) (unknown) (unknown) (no date) (unknown) (unknown) tramadol 50 mg tablet 50 mg PO TID PRN pain #30 tabs 07/03/22 (units unknown) (unknown) (unknown) (no date) (unknown) (unknown) tramadol 50 mg table t (units unknown) (unknown) (unknown) (no date) (unknown) (unknown) verbalization of understanding (units unknown) (unknown) (unknown) (no date) (unknown) (unknown) vertebral poin t tenderness. There are no symptoms of cauda equina such as (units unknown) (unknown) (unknown) (no date) (unknown) (unknown) with rest. He has been taking Lyrica as directed, he is unable to take anti (units unknown) (unknown) (unknown) (no date) (unknown) (unknown) worsening pain , persistent vomiting or other bothersome symptoms] (units unknown) (unknown) (unknown) (no date) (unknown) (unknown) would suggest against the likelihood of a neurosurgical emergency. I am glad (units unknown) (unknown) (unknown) (no date) (unknown) (unknown) you expect to get news about your upcoming surgery as soon as Sunday. ] (units unknown) (unknown) Result panel 56 (unknown) (no date) (unknown) (unknown) (no value) (units unknown) (unknown) (unknown) (no date) (unknown) (unknown) <Electronicall y signed by Jesus Wright D.O.> (units unknown) (unknown) (unknown) (no date) (unknown) (unknown) *Please contin ue to take your regular medications as directed. (units unknown) (unknown) (unknown) (no date) (unknown) (unknown) *Please follow up with your primary care provider in 2-3 days, call for an (units unknown) (unknown) (unknown) (no date) (unknown) (unknown) [facility] should have any new, worsening or (units unknown) (unknown) (unknown) (no date) (unknown) (unknown) *What to do: (units unknown) (unknown) (unknown) (no date) (unknown) (unknown) *You have been diagnosed with [ acute on chronic lumbar radiculopathy with (units unknown) (unknown) (unknown) (no date) (unknown) (unknown) 07/15/22 0930 (units unknown) (unknown) (unknown) (no date) (unknown) (unknown) 07/15/22 (units unknown) (unknown) (unknown) (no date) (unknown) (unknown) 09:04 (units unknown) (unknown) (unknown) (no date) (unknown) (unknown) 1 tab PO Q6H P RN (Reason: pain) Qty: 20 0RF (units unknown) (unknown) (unknown) (no date) (unknown) (unknown) 12 point revie w of systems is negative except for those stated above (units unknown) (unknown) (unknown) (no date) (unknown) (unknown) 2 mg PO Q8H PRN (uni ts unknown) (unknown) (unknown) (no date) (unknown) (unknown) 20 mg PO DAILY (unit s unknown) (unknown) (unknown) (no date) (unknown) (unknown) 200 mg PO TID (units unknown) (unknown) (unknown) (no date) (unknown) (unknown) 325 mg PO DAILY (uni ts unknown) (unknown) (unknown) (no date) (unknown) (unknown) 47-year-old ma le nonsmoker with extensive history of chronic back pain with (units unknown) (unknown) (unknown) (no date) (unknown) (unknown) 5 mg PO Q8H OR N (Reason: pain (scale score 7-10)) Qty: 10 0RF (units unknown) (unknown) (unknown) (no date) (unknown) (unknown) 50 mg PO TID P RN (Reason: pain) Qty: 30 1RF (units unknown) (unknown) (unknown) (no date) (unknown) (unknown) 60 mg PO DAILY (unit s unknown) (unknown) (unknown) (no date) (unknown) (unknown) 7-10) #10 tabs (unit s unknown) (unknown) (unknown) (no date) (unknown) (unknown) 750 mg PO Q8H PRN (Reason: muscle pain) Qty: 30 0RF (units unknown) (unknown) (unknown) (no date) (unknown) (unknown) 990 (units unknown) (unknown) (unknown) (no date) (unknown) (unknown) Activity Restrictions/Additiona l Instructions: (units unknown) (unknown) (unknown) (no date) (unknown) (unknown) Additionally, you cannot sign legal documents or perform any duties such as (units unknown) (unknown) (unknown) (no date) (unknown) (unknown) Age/Sex: 47 / M (uni ts unknown) (unknown) (unknown) (no date) (unknown) (unknown) Allergies (units unknown) (unknown) (unknown) (no date) (unknown) (unknown) Allergy/AdvRea c Type Severity Reaction Status Date / Time (units unknown) (unknown) (unknown) (no date) (unknown) (unknown) BACK: Back ten kael but free of any obvious external abnormalities. Patient exam (units unknown) (unknown) (unknown) (no date) (unknown) (unknown) Blood Pressure 132/91 H 07/15/22 09:04 (units unknown) (unknown) (unknown) (no date) (unknown) (unknown) Blood Pressure 132/91 H (units unknown) (unknown) (unknown) (no date) (unknown) (unknown) CARDIOVASCULAR : Denies chest pain, palpitations, orthopnea, edema, (units unknown) (unknown) (unknown) (no date) (unknown) (unknown) CARDIOVASCULAR : Regular rate and rhythm without murmurs, gallops, or rubs. (units unknown) (unknown) (unknown) (no date) (unknown) (unknown) Chief complain t: Back Pain/Injury (units unknown) (unknown) (unknown) (no date) (unknown) (unknown) Chronic low back parish n (units unknown) (unknown) (unknown) (no date) (unknown) (unknown) Clinical Impression: (units unknown) (unknown) (unknown) (no date) (unknown) (unknown) Course (units unknown) (unknown) (unknown) (no date) (unknown) (unknown) : 5 Acct:[id number] (units unknown) (unknown) (unknown) (no date) (unknown) (unknown) Date of Servic e: 07/15/22 (units unknown) (unknown) (unknown) (no date) (unknown) (unknown) Departure (units unknown) (unknown) (unknown) (no date) (unknown) (unknown) Discharge Plan (unit s unknown) (unknown) (unknown) (no date) (unknown) (unknown) Discontinued Medications (units unknown) (unknown) (unknown) (no date) (unknown) (unknown) ENT: Nose with out bleeding, purulent drainage. Throat without erythema, (units unknown) (unknown) (unknown) (no date) (unknown) (unknown) ER Physician: Jesus Wright D.O. (units unknown) (unknown) (unknown) (no date) (unknown) (unknown) EXTREMITIES: N o edema or joint tenderness. (units unknown) (unknown) (unknown) (no date) (unknown) (unknown) EYES: Pupils e qual round and reactive. Extraocular motions intact. No scleral (units unknown) (unknown) (unknown) (no date) (unknown) (unknown) Emergency Report (un its unknown) (unknown) (unknown) (no date) (unknown) (unknown) Exam Narrative: (uni ts unknown) (unknown) (unknown) (no date) (unknown) (unknown) Exam (units unknown) (unknown) (unknown) (no date) (unknown) (unknown) Findings and d ischarge diagnosis discussed with patient/family followed by (units unknown) (unknown) (unknown) (no date) (unknown) (unknown) Fusion of lumbar spi ne (units unknown) (unknown) (unknown) (no date) (unknown) (unknown) GASTROINTESTIN AL: Abdomen soft, non-tender, nondistended. (units unknown) (unknown) (unknown) (no date) (unknown) (unknown) GASTROINTESTIN AL: Denies nausea, vomiting, abdominal pain, diarrhea, (units unknown) (unknown) (unknown) (no date) (unknown) (unknown) GENERAL: Denie s chills, fatigue, malaise, fever, sweats. (units unknown) (unknown) (unknown) (no date) (unknown) (unknown) GENERAL: [47] year old patient appears stated age. Well-developed patient, in (units unknown) (unknown) (unknown) (no date) (unknown) (unknown) : Denies dys uria, frequency, incontinence, hematuria, urinary retention. (units unknown) (unknown) (unknown) (no date) (unknown) (unknown) General (units unknown) (unknown) (unknown) (no date) (unknown) (unknown) HEAD: Atraumat ic. Normocephalic. (units unknown) (unknown) (unknown) (no date) (unknown) (unknown) HEENT: Denies sinus pain, ear pain, sore throat, difficulty swallowing, (units unknown) (unknown) (unknown) (no date) (unknown) (unknown) HPI - General Adult (units unknown) (unknown) (unknown) (no date) (unknown) (unknown) HPI narrative: (unit s unknown) (unknown) (unknown) (no date) (unknown) (unknown) He is managed by Dr. Mosley at [facility] And expects to hear about the (units unknown) (unknown) (unknown) (no date) (unknown) (unknown) History of Pre sent Illness (units unknown) (unknown) (unknown) (no date) (unknown) (unknown) Home Medications (un its unknown) (unknown) (unknown) (no date) (unknown) (unknown) Hydromorphone HCl (Hydromorphone 1 Mg Inj) 1 mg IM NOW ONE (units unknown) (unknown) (unknown) (no date) (unknown) (unknown) Initial Vital Signs (units unknown) (unknown) (unknown) (no date) (unknown) (unknown) Initial Vital Signs: (units unknown) (unknown) (unknown) (no date) (unknown) (unknown) Instructions: DI for Lumbar Radiculopathy (units unknown) (unknown) (unknown) (no date) (unknown) (unknown) [place] [id number] [place] [id number] (units unknown) (unknown) (unknown) (no date) (unknown) (unknown) Last Admin: 09:17 Dose: 1 mg (units unknown) (unknown) (unknown) (no date) (unknown) (unknown) Lumbar back pa in with radiculopathy affecting lower extremity (units unknown) (unknown) (unknown) (no date) (unknown) (unknown) Lumbar radiculopathy (units unknown) (unknown) (unknown) (no date) (unknown) (unknown) Lumbar spinal stenosis due to 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 (units unknown) (unknown) (unknown) (no date) (unknown) (unknown) MDM Narrative (units unknown) (unknown) (unknown) (no date) (unknown) (unknown) MUSCULOSKELETA L: see HPI (units unknown) (unknown) (unknown) (no date) (unknown) (unknown) June and he sta ariana it did seem to help but he is no longer on steroids (units unknown) (unknown) (unknown) (no date) (unknown) (unknown) Medical Decisi on Making (units unknown) (unknown) (unknown) (no date) (unknown) (unknown) Medical Histor y (units unknown) (unknown) (unknown) (no date) (unknown) (unknown) Medical decisi on making narrative: (units unknown) (unknown) (unknown) (no date) (unknown) (unknown) Medication Instructions Recorded Confirmed (units unknown) (unknown) (unknown) (no date) (unknown) (unknown) Medication Instructions Recorded (units unknown) (unknown) (unknown) (no date) (unknown) (unknown) Miscellaneous, Doctor, MD [Primary Care Provider] (units unknown) (unknown) (unknown) (no date) (unknown) (unknown) Multiple etiol ogies for patient's symptoms considered including, but not limited (units unknown) (unknown) (unknown) (no date) (unknown) (unknown) NECK: Trachea midline. Non tender (units unknown) (unknown) (unknown) (no date) (unknown) (unknown) NEURO: AOx3. (units unknown) (unknown) (unknown) (no date) (unknown) (unknown) NEUROLOGIC: see HPI (units unknown) (unknown) (unknown) (no date) (unknown) (unknown) Narrative (units unknown) (unknown) (unknown) (no date) (unknown) (unknown) Narrative: (units unknown) (unknown) (unknown) (no date) (unknown) (unknown) New (units unknown) (unknown) (unknown) (no date) (unknown) (unknown) No Action (units unknown) (unknown) (unknown) (no date) (unknown) (unknown) Ordered: (units unknown) (unknown) (unknown) (no date) (unknown) (unknown) Orders (units unknown) (unknown) (unknown) (no date) (unknown) (unknown) Oxygen Deliver y Method Room Air 07/15/22 09:04 (units unknown) (unknown) (unknown) (no date) (unknown) (unknown) Oxygen Deliver y Method Room Air (units unknown) (unknown) (unknown) (no date) (unknown) (unknown) PSYCHIATRIC: N o concerning psychosocial issues. (units unknown) (unknown) (unknown) (no date) (unknown) (unknown) Patient Comments: (u nits unknown) (unknown) (unknown) (no date) (unknown) (unknown) Patient Dispos ition: Home (units unknown) (unknown) (unknown) (no date) (unknown) (unknown) Patient History (uni ts unknown) (unknown) (unknown) (no date) (unknown) (unknown) Patient's symp toms improved over duration of stay with above-stated therapies. (units unknown) (unknown) (unknown) (no date) (unknown) (unknown) Patient: Kishor Carrasquillo MR#: [id number] (units unknown) (unknown) (unknown) (no date) (unknown) (unknown) Please underst and that we cannot provide further refills of narcotics or (units unknown) (unknown) (unknown) (no date) (unknown) (unknown) Prescriptions: (unit s unknown) (unknown) (unknown) (no date) (unknown) (unknown) Previous Rx's (units unknown) (unknown) (unknown) (no date) (unknown) (unknown) Primary Histor mary ann: patient (units unknown) (unknown) (unknown) (no date) (unknown) (unknown) Prior Charts r eviewed in our EMR (units unknown) (unknown) (unknown) (no date) (unknown) (unknown) Pulse Oximetry 100 07/15/22 09:04 (units unknown) (unknown) (unknown) (no date) (unknown) (unknown) Pulse Oximetry 100 ( units unknown) (unknown) (unknown) (no date) (unknown) (unknown) Pulse Rate 61 07/15/22 09:04 (units unknown) (unknown) (unknown) (no date) (unknown) (unknown) Pulse Rate 61 (units unknown) (unknown) (unknown) (no date) (unknown) (unknown) RESPIRATORY: C lear to auscultation. Breath sounds equal bilaterally. No wheezes, (units unknown) (unknown) (unknown) (no date) (unknown) (unknown) RESPIRATORY: D enies dyspnea, cough, wheezing, hemoptysis, sputum. (units unknown) (unknown) (unknown) (no date) (unknown) (unknown) Referrals: (units unknown) (unknown) (unknown) (no date) (unknown) (unknown) Related Data (units unknown) (unknown) (unknown) (no date) (unknown) (unknown) Respiratory Ra te 18 07/15/22 09:04 (units unknown) (unknown) (unknown) (no date) (unknown) (unknown) Respiratory Rate 18 (units unknown) (unknown) (unknown) (no date) (unknown) (unknown) Return precaut ions discussed with patient/family whom verbalize understanding of (units unknown) (unknown) (unknown) (no date) (unknown) (unknown) Review of Systems (u nits unknown) (unknown) (unknown) (no date) (unknown) (unknown) Rx Instructions: (un its unknown) (unknown) (unknown) (no date) (unknown) (unknown) SKIN: Denies r kendra, skin lesions, or other (units unknown) (unknown) (unknown) (no date) (unknown) (unknown) SKIN: No rash or erythema of visible areas (units unknown) (unknown) (unknown) (no date) (unknown) (unknown) See Rx Instruc tions .ROUTE .COMPLEX Qty: 21 0RF (units unknown) (unknown) (unknown) (no date) (unknown) (unknown) Signed By: (units unknown) (unknown) (unknown) (no date) (unknown) (unknown) Smoking Status : Never smoker (units unknown) (unknown) (unknown) (no date) (unknown) (unknown) Social History (units unknown) (unknown) (unknown) (no date) (unknown) (unknown) Stand Alone Fo lorraine: Patient Portal/API (units unknown) (unknown) (unknown) (no date) (unknown) (unknown) Stated complai nt: back hurting (units unknown) (unknown) (unknown) (no date) (unknown) (unknown) Stop: 07/15/22 09:07 (units unknown) (unknown) (unknown) (no date) (unknown) (unknown) Substance Use Type: does not use (units unknown) (unknown) (unknown) (no date) (unknown) (unknown) TAKE ONE CAPSU LE BY MOUTH THREE TIMES DAILY (units unknown) (unknown) (unknown) (no date) (unknown) (unknown) Temperature 96 .9 F L 07/15/22 09:04 (units unknown) (unknown) (unknown) (no date) (unknown) (unknown) Temperature 96.9 F L (units unknown) (unknown) (unknown) (no date) (unknown) (unknown) Time Seen by Wesley gann: 07/15/22 08:58 (units unknown) (unknown) (unknown) (no date) (unknown) (unknown) Vital Signs - 8 hr ( units unknown) (unknown) (unknown) (no date) (unknown) (unknown) Vital Signs (units unknown) (unknown) (unknown) (no date) (unknown) (unknown) Vital signs: (units unknown) (unknown) (unknown) (no date) (unknown) (unknown) While on these medications you cannot drive or operate heavy machinery. (units unknown) (unknown) (unknown) (no date) (unknown) (unknown) You have been prescribed a short course of narcotic medications. These are (units unknown) (unknown) (unknown) (no date) (unknown) (unknown) [ ] New medica tion written as a paper prescription (units unknown) (unknown) (unknown) (no date) (unknown) (unknown) [ ] No new med ications given (units unknown) (unknown) (unknown) (no date) (unknown) (unknown) [ x] New medic ation prescriptions sent to your pharmacy: [[facility] ] (units unknown) (unknown) (unknown) (no date) (unknown) (unknown) [47] year old patient presents with Ongoing pain from known lumbar (units unknown) (unknown) (unknown) (no date) (unknown) (unknown) a dose pack (Abilio llamas (Adria)) #21 ea (units unknown) (unknown) (unknown) (no date) (unknown) (unknown) abscess versus other ] (units unknown) (unknown) (unknown) (no date) (unknown) (unknown) advisable to onur allen stool softeners with the pharmacist when you mushroom picker your (units unknown) (unknown) (unknown) (no date) (unknown) (unknown) alcohol intake frequency: 0-2 drinks per day (units unknown) (unknown) (unknown) (no date) (unknown) (unknown) any fever or c hills, takes no anticoagulation, denies any new trauma or injury, (units unknown) (unknown) (unknown) (no date) (unknown) (unknown) appointment. L et them know you were seen in the Emergency Department and that we (units unknown) (unknown) (unknown) (no date) (unknown) (unknown) ask that you b e seen in follow up. We will electronically transmit a record of (units unknown) (unknown) (unknown) (no date) (unknown) (unknown) concerning sym ptoms, such as [fever greater than 101 F, shaking chills, (units unknown) (unknown) (unknown) (no date) (unknown) (unknown) constipation, melena . (units unknown) (unknown) (unknown) (no date) (unknown) (unknown) controlled sub stances through the ED and your pain management will need to be (units unknown) (unknown) (unknown) (no date) (unknown) (unknown) course of oxyc odone at that time. His pain is worse when he moves and improves (units unknown) (unknown) (unknown) (no date) (unknown) (unknown) denies loss of control of bowel or bladder, denies any lower extremity weakness. (units unknown) (unknown) (unknown) (no date) (unknown) (unknown) diagnosis and plan ( units unknown) (unknown) (unknown) (no date) (unknown) (unknown) difficulty. He has been seen as recently as a week or 2 ago was given a short (units unknown) (unknown) (unknown) (no date) (unknown) (unknown) dizziness. (units unknown) (unknown) (unknown) (no date) (unknown) (unknown) duloxetine 60 mg capsule,delayed 60 mg PO DAILY 06/14/22 07/03/22 (units unknown) (unknown) (unknown) (no date) (unknown) (unknown) duloxetine 60 mg capsule,delayed release(DR/EC) (units unknown) (unknown) (unknown) (no date) (unknown) (unknown) ferrous sulfat e 325 mg (65 mg 325 mg PO DAILY 07/03/22 07/03/22 (units unknown) (unknown) (unknown) (no date) (unknown) (unknown) ferrous sulfat e 325 mg (65 mg iron) tablet (units unknown) (unknown) (unknown) (no date) (unknown) (unknown) gradual progre ssion. As we discussed thankfully your history and physical exam (units unknown) (unknown) (unknown) (no date) (unknown) (unknown) icterus. No in jection or drainage. (units unknown) (unknown) (unknown) (no date) (unknown) (unknown) inflammatories due to a prior gastric bypass. His last steroid taper was early (units unknown) (unknown) (unknown) (no date) (unknown) (unknown) iron) tablet (units unknown) (unknown) (unknown) (no date) (unknown) (unknown) left lower ext remity which he reports a normal for him (units unknown) (unknown) (unknown) (no date) (unknown) (unknown) leg which is a relatively new finding. He ambulates without much in the way of (units unknown) (unknown) (unknown) (no date) (unknown) (unknown) methocarbamol 750 mg tablet 750 mg PO Q8H PRN muscle pain #30 06/07/22 (units unknown) (unknown) (unknown) (no date) (unknown) (unknown) methocarbamol 750 mg tablet (units unknown) (unknown) (unknown) (no date) (unknown) (unknown) methylpredniso lone 4 mg tablets in See Rx Instructions PO .COMPLEX 07/15/22 (units unknown) (unknown) (unknown) (no date) (unknown) (unknown) methylpredniso lone [Medrol (Adria)] 4 mg tablets,dose pack (units unknown) (unknown) (unknown) (no date) (unknown) (unknown) mg tablet (units unknown) (unknown) (unknown) (no date) (unknown) (unknown) mild distress. (unit s unknown) (unknown) (unknown) (no date) (unknown) (unknown) milk Allergy M ild Verified 07/15/22 09:06 (units unknown) (unknown) (unknown) (no date) (unknown) (unknown) multiple prior surgeries presents with ongoing radicular symptoms. He denies (units unknown) (unknown) (unknown) (no date) (unknown) (unknown) notes decrease d range of motion and muscle spasm, but no CVA tenderness, or (units unknown) (unknown) (unknown) (no date) (unknown) (unknown) omeprazole 20 mg capsule,delayed 20 mg PO DAILY 06/14/22 07/03/22 (units unknown) (unknown) (unknown) (no date) (unknown) (unknown) omeprazole 20 mg capsule,delayed release(DR/EC) (units unknown) (unknown) (unknown) (no date) (unknown) (unknown) ongoing low ba ck pain with radiation down his left leg with numbness and (units unknown) (unknown) (unknown) (no date) (unknown) (unknown) orally per pac kage directions (units unknown) (unknown) (unknown) (no date) (unknown) (unknown) oxycodone 5 mg tablet 5 mg PO Q8H PRN pain (scale score 07/15/22 (units unknown) (unknown) (unknown) (no date) (unknown) (unknown) oxycodone 5 mg table t (units unknown) (unknown) (unknown) (no date) (unknown) (unknown) oxycodone-acet aminophe n 5 mg-325 1 tab PO Q6H PRN pain #20 tabs 07/06/22 (units unknown) (unknown) (unknown) (no date) (unknown) (unknown) oxycodone-acet aminophe n 5-325 mg tablet (units unknown) (unknown) (unknown) (no date) (unknown) (unknown) patient with e xtensive back history and known lumbar radiculopathy with upcoming (units unknown) (unknown) (unknown) (no date) (unknown) (unknown) potentially da ngerous and addictive medications that should be used carefully. (units unknown) (unknown) (unknown) (no date) (unknown) (unknown) pregabalin 200 mg capsule 200 mg PO TID 06/14/22 07/03/22 (units unknown) (unknown) (unknown) (no date) (unknown) (unknown) pregabalin 200 mg capsule (units unknown) (unknown) (unknown) (no date) (unknown) (unknown) prescription. (units unknown) (unknown) (unknown) (no date) (unknown) (unknown) radiculopathy (units unknown) (unknown) (unknown) (no date) (unknown) (unknown) rales, or rhonchi. ( units unknown) (unknown) (unknown) (no date) (unknown) (unknown) release (units unknown) (unknown) (unknown) (no date) (unknown) (unknown) saddle anesthe marina, or strength. He does have decreased sensation of much of his (units unknown) (unknown) (unknown) (no date) (unknown) (unknown) specifics of h is upcoming surgery as soon as Sunday. He states that he has (units unknown) (unknown) (unknown) (no date) (unknown) (unknown) surgery has no neurosurgical complaints or findings. (units unknown) (unknown) (unknown) (no date) (unknown) (unknown) tabs (units unknown) (unknown) (unknown) (no date) (unknown) (unknown) this. Many peo ple get constipated on narcotic medications so it would be (units unknown) (unknown) (unknown) (no date) (unknown) (unknown) through your P [facility] Care Provider (units unknown) (unknown) (unknown) (no date) (unknown) (unknown) tingling of th e majority of his left leg but also some pain going down his right (units unknown) (unknown) (unknown) (no date) (unknown) (unknown) tizanidine 2 m g capsule 2 mg PO Q8H PRN 07/03/22 07/03/22 (units unknown) (unknown) (unknown) (no date) (unknown) (unknown) tizanidine 2 m g capsule (units unknown) (unknown) (unknown) (no date) (unknown) (unknown) to: [ acute on chronic lumbar radiculopathy versus cauda equina versus epidural (units unknown) (unknown) (unknown) (no date) (unknown) (unknown) today's note i f your PCP is in our system (units unknown) (unknown) (unknown) (no date) (unknown) (unknown) tonsillar hype rtrophy or exudate. Airway patent. (units unknown) (unknown) (unknown) (no date) (unknown) (unknown) tramadol 50 mg tablet 50 mg PO TID PRN pain #30 tabs 07/03/22 (units unknown) (unknown) (unknown) (no date) (unknown) (unknown) tramadol 50 mg table t (units unknown) (unknown) (unknown) (no date) (unknown) (unknown) verbalization of understanding (units unknown) (unknown) (unknown) (no date) (unknown) (unknown) vertebral poin t tenderness. There are no symptoms of cauda equina such as (units unknown) (unknown) (unknown) (no date) (unknown) (unknown) with rest. He has been taking Lyrica as directed, he is unable to take anti (units unknown) (unknown) (unknown) (no date) (unknown) (unknown) worsening pain , persistent vomiting or other bothersome symptoms] (units unknown) (unknown) (unknown) (no date) (unknown) (unknown) would suggest against the likelihood of a neurosurgical emergency. I am glad (units unknown) (unknown) (unknown) (no date) (unknown) (unknown) you expect to get news about your upcoming surgery as soon as Sunday. ] (units unknown) (unknown) Social History date description facility 2022-05-27 00:00 Never smoked tobacco (finding) [facility] 2022-06-04 00:00 Never smoked tobacco (finding) [facility] 2022-06-07 00:00 Never smoked tobacco (finding) [facility] 2022-06-13 00:00 Never smoked tobacco (finding) [facility] 2022-06-24 00:00 Never smoked tobacco (finding) [facility] 2022-06-28 00:00 Never smoked tobacco (finding) [facility] 2022-07-03 00:00 Never smoked tobacco (finding) [facility] 2022-07-06 00:00 Never smoked tobacco (finding) [facility] 2022-07-15 00:00 Never smoked tobacco (finding) [facility] Vital Signs date measurement value units 2022-05-27 00:00 BMI 35.2 kg/m2 2022-05-27 00:00 BP_diastolic 94 mmHg 2022-05-27 00:00 BP_systolic 140 mmHg 2022-05-27 00:00 heart_rate 67 /min 2022-05-27 00:00 height_metric 182.88 cm 2022-05-27 00:00 height_standard 72 in 2022-05-27 00:00 o2_saturation 100 % 2022-05-27 00:00 respiration_rate 18 /min 2022-05-27 00:00 temperature_metric 36.72 C 2022-05-27 00:00 temperature_standard 98.1 F 2022-05-27 00:00 weight_metric 117.93 kg 2022-05-27 00:00 weight_standard 259.99 lb 2022-06-04 00:00 BMI 35.2 kg/m2 2022-06-04 00:00 BP_diastolic 97 mmHg 2022-06-04 00:00 BP_systolic 143 mmHg 2022-06-04 00:00 heart_rate 64 /min 2022-06-04 00:00 height_metric 182.88 cm 2022-06-04 00:00 height_standard 72 in 2022-06-04 00:00 o2_saturation 96 % 2022-06-04 00:00 respiration_rate 16 /min 2022-06-04 00:00 temperature_metric 37.28 C 2022-06-04 00:00 temperature_standard 99.1 F 2022-06-04 00:00 weight_metric 117.93 kg 2022-06-04 00:00 weight_standard 259.99 lb 2022-06-07 00:00 BMI 35.2 kg/m2 2022-06-07 00:00 BP_diastolic 89 mmHg 2022-06-07 00:00 BP_systolic 141 mmHg 2022-06-07 00:00 heart_rate 72 /min 2022-06-07 00:00 height_metric 182.88 cm 2022-06-07 00:00 height_standard 72 in 2022-06-07 00:00 o2_saturation 97 % 2022-06-07 00:00 respiration_rate 18 /min 2022-06-07 00:00 temperature_metric 36.17 C 2022-06-07 00:00 temperature_standard 97.1 F 2022-06-07 00:00 weight_metric 117.93 kg 2022-06-07 00:00 weight_standard 259.99 lb 2022-06-14 00:00 BMI 34.0 kg/m2 2022-06-14 00:00 BP_diastolic 70 mmHg 2022-06-14 00:00 BP_systolic 120 mmHg 2022-06-14 00:00 heart_rate 80 /min 2022-06-14 00:00 height_metric 182.88 cm 2022-06-14 00:00 height_standard 72 in 2022-06-14 00:00 o2_saturation 97 % 2022-06-14 00:00 temperature_metric 36.67 C 2022-06-14 00:00 temperature_standard 98 F 2022-06-14 00:00 weight_metric 113.96 kg 2022-06-14 00:00 weight_standard 251.24 lb 2022-06-22 00:00 BP_diastolic 87 mmHg 2022-06-22 00:00 BP_systolic 129 mmHg 2022-06-22 00:00 heart_rate 70 /min 2022-06-22 00:00 o2_saturation 99 % 2022-06-22 00:00 respiration_rate 18 /min 2022-06-22 00:00 temperature_metric 36.22 C 2022-06-22 00:00 temperature_standard 97.2 F 2022-06-23 00:00 BMI 33.0 kg/m2 2022-06-23 00:00 height_metric 185.42 cm 2022-06-23 00:00 height_standard 73 in 2022-06-23 00:00 temperature_metric 36.72 C 2022-06-23 00:00 temperature_standard 98.1 F 2022-06-23 00:00 weight_metric 113.39 kg 2022-06-23 00:00 weight_standard 249.98 lb 2022-06-24 00:00 BP_diastolic 68 mmHg 2022-06-24 00:00 BP_systolic 118 mmHg 2022-06-24 00:00 heart_rate 62 /min 2022-06-24 00:00 o2_saturation 100 % 2022-06-24 00:00 respiration_rate 18 /min 2022-06-28 00:00 BMI 33.6 kg/m2 2022-06-28 00:00 height_metric 182.88 cm 2022-06-28 00:00 height_standard 72 in 2022-06-28 00:00 temperature_metric 36.5 C 2022-06-28 00:00 temperature_standard 97.7 F 2022-06-28 00:00 weight_metric 112.49 kg 2022-06-28 00:00 weight_standard 248 lb 2022-06-29 00:00 BP_diastolic 89 mmHg 2022-06-29 00:00 BP_systolic 131 mmHg 2022-06-29 00:00 heart_rate 66 /min 2022-06-29 00:00 o2_saturation 98 % 2022-06-29 00:00 respiration_rate 16 /min 2022-07-03 00:00 BMI 33.8 kg/m2 2022-07-03 00:00 BP_diastolic 66 mmHg 2022-07-03 00:00 BP_systolic 116 mmHg 2022-07-03 00:00 heart_rate 87 /min 2022-07-03 00:00 height_metric 182.88 cm 2022-07-03 00:00 height_standard 72 in 2022-07-03 00:00 o2_saturation 98 % 2022-07-03 00:00 temperature_metric 36.83 C 2022-07-03 00:00 temperature_standard 98.3 F 2022-07-03 00:00 weight_metric 113.11 kg 2022-07-03 00:00 weight_standard 249.36 lb 2022-07-05 00:00 BMI 33.9 kg/m2 2022-07-05 00:00 height_metric 182.88 cm 2022-07-05 00:00 height_standard 72 in 2022-07-05 00:00 temperature_metric 36.39 C 2022-07-05 00:00 temperature_standard 97.5 F 2022-07-05 00:00 weight_metric 113.39 kg 2022-07-05 00:00 weight_standard 249.98 lb 2022-07-06 00:00 BP_diastolic 88 mmHg 2022-07-06 00:00 BP_systolic 130 mmHg 2022-07-06 00:00 heart_rate 80 /min 2022-07-06 00:00 o2_saturation 98 % 2022-07-06 00:00 respiration_rate 18 /min 2022-07-15 00:00 BMI 33.0 kg/m2 2022-07-15 00:00 BP_diastolic 93 mmHg 2022-07-15 00:00 BP_systolic 129 mmHg 2022-07-15 00:00 heart_rate 71 /min 2022-07-15 00:00 height_metric 182.88 cm 2022-07-15 00:00 height_standard 72 in 2022-07-15 00:00 o2_saturation 98 % 2022-07-15 00:00 respiration_rate 18 /min 2022-07-15 00:00 temperature_metric 36.06 C 2022-07-15 00:00 temperature_standard 96.9 F 2022-07-15 00:00 weight_metric 110.67 kg 2022-07-15 00:00 weight_standard 243.99 lb
== END 2022-07-19 17:40 | disposition home or self-care (01) ==
LOC: ED 17:14
DX: M54.50 Low back pain, unspecified (principal); G89.29 Other chronic pain
CPT/HCPCS: 99281; 99283

== ENCOUNTER 2022-07-27 03:01 | Outpatient (CLI) | payer OTHER, MEDICAID | END 2022-07-27 23:59 | disposition short-term general hospital (02) | LOC: EMS 03:01 | DX: M54.9 Dorsalgia, unspecified (principal); G89.29 Other chronic pain | CPT/HCPCS: A0425; A0429 ==

== ENCOUNTER 2024-01-18 09:56 | Inpatient (IN) ==
--- NOTE | 2024-01-18 11:52 | ED Physician Documentation ---
PD HPI BACK PAIN Stated complaint Stated Complaint: BACK PX Chief complaint Chief Complaint: Back Pain Additional information Additional information: 48-year-old male with history of multiple spinal surgeries presents emergency department after ground-level fall for severe back pain. Patient says that he initially tweaked his back while slipping but not following by the time he walked into the store he tripped over carpet and fell onto his hands and knees. He denies any head injury or hitting his head he is not any blood thinners. 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 His last spinal surgery was at [facility] and this was about a year ago. Coming into the ER he is having new urinary continence he says he does not feel an urge to go he just voids without knowing. He endorses an severe entire spine pain although I from his neck to his lower back. Meds/Allgy Home Medications Ambulatory Orders Medication Instructions Recorded Confirmed pregabalin 200 mg capsule (Lyrica) 200 mg ORAL TID pain 09/10/21 03/05/22 acetaminophen 500 mg tablet 1,000 mg PO Q8HR PRN Pain 03/05/22 03/05/22 Allergies Allergies Allergy/AdvReac Type Severity Reaction Status Date / Time No Known Drug Allergies Allergy Verified 01/18/24 10:20 [facility] Medical History Medical History (Updated 01/18/24 @ 21:32 by Aaliyah Barron DNP) Back pain with history of spinal surgery Peripheral neuropathy Surgical History Surgical History (Updated 01/18/24 @ 10:20 by Yasmani Uriostegui RN) H/O gastric bypass Social History Social History Smoking Status: Never smoker Do you vape?: No Living arrangement: At home Living Condition: With spouse/s.o. Relationship: Do you feel safe in your home environment?: Yes Suffered physical, verbal, emotional, or financial abuse?: No History of Abuse: No POLST Patient has POLST: No Exam Constitutional normal general appearance, no apparent distress, abnormal body habitus (obese), no limitations and alert HENMT normocephalic and head/scalp atraumatic Eyes PERRL and EOMs intact bilaterally Neck/C-Spine visual inspection normal and cervical spine tenderness noted (Cervical spine tenderness) Chest inspection of chest normal Respiratory breath sounds equal bilaterally and normal respiratory effort Cardiovascular normal heart rate noted and regular rhythm noted Back/Pelvis Neck and back are without deformity, external skin changes, or signs of trauma. Bony features of the shoulders and hips are of equal height bilaterally. tenderness noted on palpation of the spinous processes through the lower thoracic and lumbar region. Spinous processes are midline. , thoracic, and lumbar paraspinal muscles are tender and with spasm. No discomfort is noted with flexion, extension, and [id number] rotation of the cervical spine, full range of motion is noted. Limited range of motion including flexion, extension, and [id number] rotation of the thoracic and lumbar spine are noted. Straight leg raise test is negative bilaterally. Sensation to the upper normal bilaterally. Pt loses sensation to LLE intermittently as well as LUE No clonus is noted. Cardiac Surgeon strength is normal bilaterally. Dorsi/plantar flexion is normal bilaterally. Extremities normal to inspection, normal to palpation, no tenderness, full ROM and no deformity Neurology form carpenter II-XII intact, no movement abnormality noted, no focal motor deficit noted, gait normal, speech normal, coordination normal and GCS 15 Psychiatry mental status grossly normal, oriented x3, thought process normal and cooperative Skin skin color normal, no rash and no ecchymosis noted Results Vitals Vitals: Vital Signs - 24 hr 01/18/24 10:15 01/18/24 12:08 01/18/24 12:08 Temperature 37.1 C Temperature Source Temporal Artery Scan Pulse Rate 108 H Respiratory Rate 18 Blood Pressure 137/103 H O2 Saturation 95 O2 Source Room air Pain Intensity 8 10 10 01/18/24 12:20 01/18/24 13:29 01/18/24 13:29 Temperature Temperature Source Pulse Rate 89 Respiratory Rate 22 Blood Pressure 136/88 H O2 Saturation 94 O2 Source Room air Pain Intensity 8 8 01/18/24 13:32 01/18/24 13:32 01/18/24 14:20 Temperature Temperature Source Pulse Rate 93 H Respiratory Rate 22 Blood Pressure 127/92 H O2 Saturation 96 O2 Source Room air Pain Intensity 7 7 01/18/24 16:20 01/18/24 16:20 01/18/24 16:20 Temperature Temperature Source Pulse Rate 101 H Respiratory Rate 20 Blood Pressure 107/63 O2 Saturation 96 O2 Source Room air Pain Intensity 7 7 01/18/24 16:27 01/18/24 19:43 01/18/24 19:54 Temperature Temperature Source Pulse Rate 91 H Respiratory Rate 23 Blood Pressure 134/97 H O2 Saturation 97 O2 Source Room air Pain Intensity 9 8 6 01/18/24 19:58 01/18/24 21:00 Temperature Temperature Source Pulse Rate 106 H Respiratory Rate 28 H Blood Pressure 137/86 H O2 Saturation 98 O2 Source Room air Pain Intensity 8 7 Oxygen O2 Source Room air Rads (name of study) Cervical spine without: Relevant Findings:: Final report received and EMP independent interpretation of test Interpretation: IMPRESSION: No visualized fracture. CT lumbar spine without: Relevant Findings:: Prelim report reviewed and EMP independent interpretation of test Interpretation: IMPRESSION: Postsurgical and degenerative change without visualized acute fracture. Thoracic spine without: Relevant Findings:: Final report received and EMP independent interpretation of test Interpretation: IMPRESSION: Stable previous compression deformities. No visualized acute fracture. Lumbar spine MRI with and without: Relevant Findings:: Prelim report reviewed and EMP independent interpretation of test Interpretation: IMPRESSION: 1.Postprocedural changes in the lumbar spine. 2.2 cm fluid collection posterior to the right laminectomy bed at L3, postprocedural. 2.Multilevel degenerative changes of the lumbar spine, most pronounced at L1-2, there is severe central canal stenosis and mild bilateral neuroforaminal stenosis. 3.Mild anterior compression fracture of T12, chronic. 4.3.3 cm T2 hyperintense left adrenal nodule, indeterminate. PD Medical Decision Making ED course Complexity details: reviewed old records, reviewed results, re-evaluated patient, considered differential, d/w patient and d/w cardiology consultants ([facility] neurosurgeon Dr. Hernandez) ED course: 48-year-old male presents emergency department via EMS after mechanical ground- level fall. Patient is overall very poor historian unable to contribute much to his past medical history in terms of what type of congenital spinal disease he has and why he is required surgeries. Initially when patient arrived to the emergency department he had an episode of incontinence and said that he felt no urge or sensation to void. Because of this after CT lumbar, thoracic, cervical was complete and did not show any acute abnormalities or findings I went ahead with a MRI lumbar/thoracic with and without to rule out the possibility of this being related to cauda equina syndrome. MRI with and without was complete see results above but most notable there is some postprocedural changes in the lumbar spine with a 2.2 cm fluid collection posterior to the right laminectomy bed at L3. There also appears to be severe central canal stenosis with mild bilateral neuroforaminal stenosis most pronounced at L1-L2. There appears to be a chronic anterior compression fracture at T12. Because of these findings I reached out to [facility] neurosurg, his neurosurgeon is Dr. Mosley who did the surgery about a year ago. I was able to get a hold of Dr. Steve Hernandez who was able to look at the MRI and CT results and said that there is no e mergent indication to transfer patient at this point in time and there is no need to do any sort of emergent spinal surgery. Patient's urge to void had resolved he was able to void without any difficulty with a PVR of 30 rectal exam was also completed he did have strong rectal tone. We tried multiple different pain medications to help patient get out of bed and ambulate but unfortunately we were unsuccessful here in the emergency department. We attempted Tylenol, Dilaudid, tizanidine, baclofen, Toradol and unfortunately were unable to successfully get patient out of bed due to the severity of the pain. I reach out to Dr. Daugherty, telehospitalist who is graciously agreed to admit the patient for physical therapy and pain control and patient is agreeable to stay. Discharge Plan Discharge Patient Disposition: [facility] DC/Xfer Condition: Good Clinical Impression: Acute pain, Pain crisis, Intractable back pain, Central stenosis of spinal canal Prescriptions: No Action pregabalin [Lyrica] 200 MG capsule 200 mg ORAL TID acetaminophen 500 MG tablet 1,000 mg PO Q8HR PRN (Reason: Pain) Print Language: Macedonian
[2024-01-18] MEDS: HYDROmorphone 0.5 MG/0.5 ML SYRINGE IVP STA ×4 (12:08→19:58)
[2024-01-18] MEDS: KETOROLAC 15 MG/ML VIAL IVP STA ×2 (12:08→13:29)
--- NOTE | 2024-01-18 12:54 | CT Report ---
PROCEDURE: CT Cervical Spine WO INDICATIONS: neck pain after GLF, multiple spinal surgeries TECHNIQUE: Noncontrast 3 mm thick sections acquired from the skull base to the T4 level. Sagittal and coronal r eformats were then constructed. For radiation dose reduction, the following was used: automated exp osure control, adjustment of mA and/or kV according to patient size. COMPARISON: None. FINDINGS: Image quality: Excellent. Bones: No fractures or dislocations. Visualized superior ribs are intact. Degenerative changes. Soft tissues: Prevertebral soft tissues are normal in thickness. No paravertebral hematomas. No ap ical pneumothoraces. IMPRESSION: No visualized fracture. Reviewed by: Patricia Garcia MD on 01/18/2024 12:53 PM PST Approved by: Patricia Garcia MD on 01/18/2024 12:53 PM [facility] Station ID: [id number]
--- NOTE | 2024-01-18 12:59 | CT Report ---
PROCEDURE: CT Lumbar Spine WO INDICATIONS: GLF, hx of multiple spinal surgeries TECHNIQUE: Noncontrast 3 mm thick sections acquired from the T12 level to the sacrum. Sagittal and coronal refo rmats were constructed. For radiation dose reduction, the following was used: automated exposure co ntrol, adjustment of mA and/or kV according to patient size. COMPARISON: CT cervical and thoracic spine 01/18/2024, x-ray lumbar spine 09/10/2021 FINDINGS: Image quality: Excellent. Bones: There is posterior fusion at L2-S1. Anterior fusion at L4-5 and L5-S1 is present. Prosthetic disc is present at L2-3 with intervertebral spacers at L3-4, L4-5 and L5-S1. Compression deformity is present at T12 unchanged. Mild spinal stenosis at L1-2. Multilevel scattered foraminal narrowing. Soft tissues: No retroperitoneal masses or hematomas. Visualized aorta is normal in caliber. Left adrenal mass, Hounsfield units measuring 15 consistent with benign adenoma. IMPRESSION: Postsurgical and degenerative change without visualized acute fracture. Reviewed by: Patricia Garcia MD on 01/18/2024 12:58 PM PST Approved by: Patricia Garcia MD on 01/18/2024 12:58 PM PST Station ID: [id number]
--- NOTE | 2024-01-18 13:01 | CT Report ---
PROCEDURE: CT Thoracic Spine WO INDICATIONS: GLF, hx of 4 spinal surgeries TECHNIQUE: Noncontrast 3 mm thick sections acquired through the region of interest in the thoracic spine. Sagit cheng and coronal reformats were then constructed. For radiation dose reduction, the following was used : automated exposure control, adjustment of mA and/or kV according to patient size. COMPARISON: CT lumbar spine 01/18/2024 CT abdomen pelvis 09/10/2021 FINDINGS: Image quality: Excellent. Bones: There is normal overall bony alignment. No acute vertebral body compression fractures. Uncha nged compression deformity T12, T8 and T5. Multilevel degenerative disc space narrowing. No suspiciou s sclerotic or lytic bony lesions. Central spinal canal is of normal overall caliber. Soft tissues: No paravertebral masses or hematomas. Visualized posteromedial lungs appear clear. A drenal mass on the left with Hounsfield units measuring 15 consistent with adenoma. IMPRESSION: Stable previous compression deformities. No visualized acute fracture. Reviewed by: Patricia Garcia MD on 01/18/2024 1:00 PM [facility] Approved by: Patricia Garcia MD on 01/18/2024 1:00 PM PST Station ID: [id number]
[2024-01-18] MEDS: BACLOFEN 10 MG TABLET PO STA (14:22)
[2024-01-18] MEDS: MIDAZOLAM 2 MG/2 ML VIAL IVP STA (14:37)
[2024-01-18] MEDS ORDERED: GADOTERATE MEGLUMINE 5 MMOL/10 ML VIAL ONE (14:45)
[2024-01-18] MEDS ORDERED: GADOTERATE MEGLUMINE 10 MMOL/20 ML VIAL ONE (14:45)
[2024-01-18] MEDS: GADOTERATE MEGLUMINE 10 MMOL/20 ML VIAL IVP ONE (15:39)
--- NOTE | 2024-01-18 17:07 | MRI Report ---
MRI Lumbar Spine W/WO Clinical History: 48 years of age, Male, new incontinence, hx of multiple spinal surgeries. Comparison: No priors available Technique: Multiplanar multisequence lumbar spine MRI without and with contrast was performed. Findings: Prior surgery: Posterior fusion instrumentation with interbody spacer and posterior decompression fro m L2 to S1. Anterior fusion instrumentation at L4-5 and L5-S1. Vertebral bodies: Mild anterior compression fracture of T12, without marrow edema, chronic. Vertebral body height of the lumbar spine are well-maintained. Alignment: Normal. Bone marrow: Unremarkable for age. Intervertebral discs: Multilevel disc bulge and disc desiccation. The conus medullaris is normal in contour, signal intensity, and location. The tip of the conus is at T12-L1. The following axial levels are detailed below: T11-T12: Mild retropulsion posterior T12 vertebral body. Mild bilateral facet arthropathy. Mild centr al canal stenosis. No neuroforaminal stenosis. T12-L1: Mild bilateral facet arthropathy. No central canal stenosis. No right neuroforaminal stenosis . No left neuroforaminal stenosis. L1-L2: Disc bulge. Mild bilateral facet arthropathy. Ligamentum flavum hypertrophy with epidural lipo matosis. Severe central canal stenosis. Mild right neuroforaminal stenosis. Mild left neuroforaminal stenosis. L2-L3: Posterior decompression. No central canal stenosis. There is a 2.2 cm fluid collection posteri or to the right laminectomy bed at the level of L3, favoring postprocedural. No right neuroforaminal stenosis. No left neuroforaminal stenosis. L3-L4: Posterior decompression. No central canal stenosis. Mild right neuroforaminal stenosis. No le ft neuroforaminal stenosis. L4-L5: Posterior decompression. No central canal stenosis. No right neuroforaminal stenosis. No left neuroforaminal stenosis. L5-S1: Posterior decompression. No central canal stenosis. No right neuroforaminal stenosis. Mild lef t neuroforaminal stenosis. Visualized sacrum and pelvis: Visualized sacrum is intact. No abdominal aortic aneurysm. 3.3 cm T1 hy pointense, T2 hyperintense left adrenal nodule. IMPRESSION: 1.Postprocedural changes in the lumbar spine. 2.2 cm fluid collection posterior to the right laminect trang bed at L3, postprocedural. 2.Multilevel degenerative changes of the lumbar spine, most pronounced at L1-2, there is severe centr al canal stenosis and mild bilateral neuroforaminal stenosis. 3.Mild anterior compression fracture of T12, chronic. 4.3.3 cm T2 hyperintense left adrenal nodule, indeterminate. Reviewed by: Patricia Nettles MD on 01/18/2024 5:06 PM PST Approved by: Patricia Nettles MD on 01/18/2024 5:06 PM PST Station ID: [id number]
[2024-01-18] MEDS ORDERED: ACETAMINOPHEN 325 MG TABLET PO PRN (21:25)
[2024-01-18] MEDS ORDERED: ONDANSETRON 4 MG/2 ML VIAL IVP PRN (21:25)
--- NOTE | 2024-01-18 21:49 | HISTORY & PHYSICAL EXAMINATION ---
Chief Complaint Chief Complaint Chief Complaint: Back pain History of Present Illness History of Present Illness HPI Comment/Other: 48 y old male with PMH Chronic back pain s/p back leminectomy and back surgeries X 4, obesity s/p gastric bypass presented to ER s/p mechanical fall. As per pt, he hit to the ground really bad. Denies head injury, or LOC s/o numbness in right leg and foot. Denies urinary or fecal incontinence On presentaion, pt was afebrile Labs showed WBC 11.6, lactic acid 2.8 CT of cervical, thoracic and Lumbar spine showed no acute fracture. MRI of L spine showed chronic degenerative changes As per Aaliyah (DIRECTOR OF BUSINESS SYSTEMS), she consulted with neurosurgeon medical authorization specialist ( Dr Hernandez), who recommended patient to be admitted at the hospital for pain copntrol and outpatient follow up Pt is admitted due to intractable back pain for pain control and PT/OT Review of Systems Status of ROS: 10 or more systems reviewed and unremarkable except as noted in history and below PFSH Medical History Medical History (Updated 01/18/24 @ 21:32 by Aaliyah Barron DNP) Back pain with history of spinal surgery Peripheral neuropathy Surgical History Surgical History (Updated 01/18/24 @ 10:20 by Yasmani Uriostegui RN) H/O gastric bypass Social History Social History Smoking Status: Never smoker Do you vape?: No Living arrangement: At home Living Condition: With spouse/s.o. Relationship: Do you feel safe in your home environment?: Yes Suffered physical, verbal, emotional, or financial abuse?: No History of Abuse: No POLST Patient has POLST: No Meds/Allgy Home Medications Ambulatory Orders Medication Instructions Recorded Confirmed pregabalin 200 mg capsule (Lyrica) 200 mg ORAL TID pain 09/10/21 03/05/22 acetaminophen 500 mg tablet 1,000 mg PO Q8HR PRN Pain 03/05/22 03/05/22 Allergies Allergies Allergy/AdvReac Type Severity Reaction Status Date / Time No Known Drug Allergies Allergy Verified 01/18/24 10:20 Exam Constitutional normal general appearance HENMT normocephalic Eyes PERRL Neck/C-Spine visual inspection normal Chest inspection of chest normal Respiratory breath sounds equal bilaterally Cardiovascular normal heart rate noted Gastrointestinal abdomen normal to inspection Genitourinary no CVA tenderness Extremities normal to inspection Neurology no focal motor deficit noted Skin no rash Conclusion/Plan Problem List (1) Intractable back pain: Plan A: Intractable back pain Mechanical fall Leukocytosis Lactic acidosis Obesity s/p gastric bypass Plan; Admit to med surg Pain control PT/OT Start NS @ 100 cc/h Repeat CBC, CMP, lactic acid in am DVT prophylaxic: SCD Full code Pt is admitted as inpatient as more than 2 midnight stay is expected
[2024-01-18] MEDS: ACETAMINOPHEN 500 MG TABLET PO STA (22:15)
[2024-01-18] MEDS: HYDROmorphone 0.5 MG/0.5 ML SYRINGE IVP PRN (22:31)
[2024-01-18] MEDS: SODIUM CHLORIDE FLUSH 0.9% 10 ML SYRINGE IVP PRN (22:31)
[2024-01-18] MEDS: SODIUM CHLORIDE 0.9% 1,000 ML IV SCH (22:32)
[2024-01-18] MEDS: HYDROcod/ACETAM 5/325 MG TABLET PO PRN (23:30)
[2024-01-19] MEDS: SODIUM CHLORIDE FLUSH 0.9% 10 ML SYRINGE IVP SCH (00:17)
[2024-01-19] MEDS: tiZANidine 4 MG TABLET PO PRN (00:18)
[2024-01-19 05:04] LABS: BASOPHILS % (AUTO) 0.2 %; EOSINOPHILS # (AUTO) 0.1 10^3/uL (0.0-0.7); EOSINOPHILS % (AUTO) 1.1 %; HCT - HEMATOCRIT 34.8 % (42.0-52.0); HGB - HEMOGLOBIN 10.7 g/dL (14.0-18.0); LYMPHOCYTES # (AUTO) 1.4 10^3/uL (1.5-3.5); LYMPHOCYTES % (AUTO) 30.9 %; MEAN CORPUSCULAR HEMOGLOBIN 23.9 pg (27.0-31.0); MEAN CORPUSCULAR HGB CONC 30.7 g/dL (32.0-36.0); MEAN CORPUSCULAR VOLUME 77.7 fL (80.0-94.0); MEAN PLATELET VOLUME 8.8 fL (7.4-11.4); MONOCYTES # (AUTO) 0.4 10^3/uL (0.0-1.0); MONOCYTES % (AUTO) 9.6 %; NEUTROPHILS # (AUTO) 2.6 10^3/uL (1.5-6.6); NEUTROPHILS % (AUTO) 57.8 %; PLT - PLATELET COUNT 342 10^3/uL (130-450); RED BLOOD COUNT 4.48 10^6/uL (4.70-6.10); RED CELL DISTRIBUTION WIDTH 17.7 % (12.0-15.0); WHITE BLOOD COUNT 4.6 x10^3/uL (4.8-10.8)
[2024-01-19 05:20] LABS: ALBUMIN/GLOBULIN RATIO 1.5 (1.0-2.2); CALCIUM 8.4 mg/dL (8.5-10.3); CREATININE 1.1 mg/dL (0.6-1.3); POTASSIUM 3.5 mmol/L (3.5-4.5); TOTAL PROTEIN 6.6 g/dL (6.4-8.9)
[2024-01-19] MEDS: oxyCODONE 5 MG TABLET PO PRN (07:45)
--- NOTE | 2024-01-19 08:15 | PHARMACY PROGRESS NOTE ---
Best Possible Medication History Admit Date and Time: 01/18/242124 Home Medications Medication Instructions Recorded Confirmed Type pregabalin 200 mg capsule (Lyrica) 200 mg ORAL TID pain 09/10/21 01/19/24 History acetaminophen 500 mg tablet 1,000 mg PO Q8HR PRN Pain 03/05/22 01/19/24 History Processed by: Pharmacy Medications reviewed in ED?: No Medication History completed: Yes Patient Interview: Completed Secondary Source(s): Pharmacy records and Insurance records [facility] Statement: As the person ultimately responsible for medication therapy, providers are able to order a medication from an existing home medication list in [facility] via the "Reconcile Routine" prior to Confirmation of that medication by business support coordinator. Such practice is discouraged except when the physician, in their clinical judgment, deems that a medical need exists for a medication without regard to previous use.
[2024-01-19] MEDS: IBUPROFEN 600 MG TABLET PO SCH (08:38)
[2024-01-19] MEDS: ACETAMINOPHEN 500 MG TABLET PO SCH (08:38)
[2024-01-19] MEDS: CYCLOBENZAPRINE 10 MG TABLET PO SCH (08:38)
[2024-01-19] MEDS: PREGABALIN 100 MG CAPSULE PO SCH (08:38)
--- NOTE | 2024-01-19 08:38 | PROVIDER PROGRESS NOTE ---
Subjective Prog Note Date Prog Note Date: 01/19/24 Subjective Pt reports feeling: No change Subjective: Visibly in pain at time of my interview with sweat on his forehead Current Medications Current Medications Current Medications: Current Medications Generic Name Dose Route Start Last Admin Trade Name Freq PRN Reason Stop Dose Admin Acetaminophen 1,000 mg 01/19/24 08:00 Acetaminophen 500 Mg Tablet PO TID [facility] Cyclobenzaprine HCl 10 mg 01/19/24 08:00 Cyclobenzaprine 10 Mg Tablet PO TID [facility] Hydromorphone HCl 0.5 mg 01/18/24 21:25 01/19/24 06:08 Hydromorphone 0.5 Mg/0.5 Ml Syringe IVP 0.5 mg Q2H PRN Administration Pain 8 to 10 Ibuprofen 600 mg 01/19/24 08:00 Ibuprofen 600 Mg Tablet PO Q6HR [facility] Lidocaine 1 patch 01/19/24 09:00 Lidocaine Patch 4% TOP DAILY [facility] Ondansetron HCl 4 mg 01/18/24 21:25 Ondansetron 4 Mg/2 Ml Vial IVP Q6HR PRN Nausea / Vomiting Oxycodone HCl 5 mg 01/19/24 07:29 01/19/24 07:45 Oxycodone 5 Mg Tablet PO 5 mg Q4HR PRN Administration Moderate Pain (Level 4-6) Pregabalin 200 mg 01/19/24 08:00 Pregabalin 100 Mg Capsule PO TID [facility] Sodium Chloride 10 ml 01/18/24 21:25 01/19/24 06:09 Sodium Chloride Flush 0.9% 10 Ml Syringe IVP 10 ml PRN PRN Administration NEEDED PER PROVIDER ORDERS Sodium Chloride 10 ml 01/19/24 01:00 01/19/24 00:17 Sodium Chloride Flush 0.9% 10 Ml Syringe IVP 10 ml 0100,0900,1700 [facility] Administration Objective Vital Signs/Intake & Output Reviewed Vital Signs: Yes Intake & Output: Intake & Output 01/17/24 01/18/24 01/19/24 01/20/24 05:59 05:59 05:59 05:59 Intake Total 175 / 175 1265 / 1265 Balance 175 / 175 1265 / 1265 Weight (kg) 121.5 kg Objective General Appearance: positive Alert and Anxious (From pain) Eyes Bilateral: positive Normal inspection ENT: positive ENT inspection nml Neck: positive Nml inspection Respiratory: positive Chest non-tender and No respiratory distress Cardiovascular: positive Regular rate & rhythm Abdomen: positive Non-tender Skin: positive Color nml and Diaphoresis Extremities: positive Non-tender Neurologic/Psychiatric: positive Oriented x3 and Sensory loss (Numbness in his left leg which is not new, numbness in his right leg which is new); negative Sensation nml Lab Results 01/19/24 04:50 01/19/24 04:50 Other Labs: Lab Results x24hrs 01/19/24 Range/Units 04:50 WBC 4.6 L (4.8-10.8) x10^3/uL RBC 4.48 L (4.70-6.10) 10^6/uL Hgb 10.7 L (14.0-18.0) g/dL Hct 34.8 L (42.0-52.0) % MCV 77.7 L (80.0-94.0) fL MCH 23.9 L (27.0-31.0) pg MCHC 30.7 L (32.0-36.0) g/dL RDW 17.7 H (12.0-15.0) % Plt Count 342 (130-450) 10^3/uL MPV 8.8 (7.4-11.4) fL Neut # (Auto) 2.6 (1.5-6.6) 10^3/uL Lymph # (Auto) 1.4 L (1.5-3.5) 10^3/uL Rowan # (Auto) 0.4 (0.0-1.0) 10^3/uL Eos # (Auto) 0.1 (0.0-0.7) 10^3/uL Baso # (Auto) 0.0 (0.0-0.1) 10^3/uL Absolute Nucleated RBC 0.00 x10^3/uL Nucleated RBC % 0.0 /100WBC Sodium 135 (135-145) mmol/L Potassium 3.5 (3.5-4.5) mmol/L Chloride 101 (101-111) mmol/L Carbon Dioxide 27 (21-32) mmol/L Anion Gap 7.0 (6-13) BUN 10 (6-20) mg/dL Creatinine 1.1 (0.6-1.3) mg/dL Estimated GFR (MDRD) 71 L (>89) Glucose 127 H (74-104) mg/dL Lactic Acid 0.9 (0.5-2.2) mmol/L Calcium 8.4 L (8.5-10.3) mg/dL Total Bilirubin 1.0 (0.2-1.0) mg/dL AST 22 (10-42) IU/L ALT 18 (10-60) IU/L Alkaline Phosphatase 62 (42-121) IU/L Total Protein 6.6 (6.4-8.9) g/dL Albumin 4.0 (3.2-5.5) g/dL Globulin 2.6 (2.1-4.2) g/dL Albumin/Globulin Ratio 1.5 (1.0-2.2) Assessment/Plan Problem List (1) Intractable back pain: Impression: History of laminectomy/back surgery x 4. Experiencing pain after mechanical fall. He describes this pain as sometimes sharp, sometimes spasms. He states that when he is having a flareup of back pain that he has numbness in his right leg. He also has been experiencing urinary retention CT of C, T, L-spine no acute fracture MRI L-spine with chronic degenerative changes, no acute abnormalities Admitted for intractable back pain for pain control PT/OT, Encourage ambulation as soon as possible Scheduled Tylenol, Flexeril, Motrin, Lidocaine patch Oxycodone as needed, hydromorphone Continue home Lyrica (2) Urinary retention: Impression: MRI L-spine was negative for acute abnormality Flomax Bladder scan per unit protocol, consider intermittent catheter (3) Hyperglycemia: Impression: A1c in a.m.
[2024-01-19] MEDS: LIDOCAINE PATCH 4% TOP SCH (08:39)
[2024-01-19] MEDS: TAMSULOSIN 0.4 MG CAPSULE PO SCH (10:16)
[2024-01-19] MEDS: HYDROmorphone 1 MG/ML CARPUJECT IVP PRN (14:06)
[2024-01-19] MEDS: DEXAMETHASONE 10 MG/ML VIAL IVP ONE (16:51)
--- NOTE | 2024-01-19 20:22 | PROVIDER PROGRESS NOTE ---
Film Producer Note Film Producer Note Film Producer Note: Called by RN stating " Pt reports worsening back spasms, "internal pinching" to low back, continued urinary retention requiring straight cath. Mobility is severely diminished from baseline for more than 24 hours now. Bladder scan 475mL currently, earlier today scanned 450mL and obtained 750mL on straight cath. Currently optimized on all available pain meds including 1mg IV dilaudid q2h PRN, PO oxy 5mg q4h PRN, tylenol 1000mg TID, flexeril 10mg TID, lyrica 200mg TID, 10mg x1 dose of IVP dexamethasone. Can we please get additional muscle relaxant PRN and order for rasheed insertion d/t retention? He is tense, grimacing, sweat beading on forehead, tremoring d/t pain." Patient discussed at length with RN, will order rasheed continue pain meds ir no improvement consider repeat imaging, discussed with ABIDA Ibrahim, have asked to keep us updated.
[2024-01-20] MEDS: KETOROLAC 15 MG/ML VIAL IVP PRN (00:17)
--- NOTE | 2024-01-20 07:31 | PROVIDER PROGRESS NOTE ---
Subjective Prog Note Date Prog Note Date: 01/20/24 Subjective Pt reports feeling: No change Subjective: Still with spasmic back pain and intermittent numbness in his right leg, urinary retention Current Medications Current Medications Current Medications: Current Medications Generic Name Dose Route Start Last Admin Trade Name Freq PRN Reason Stop Dose Admin Acetaminophen 1,000 mg 01/19/24 08:00 01/20/24 06:20 Acetaminophen 500 Mg Tablet PO 1,000 mg TID STEFAN Administration Anderson Syrup 10 ml 01/20/24 09:00 Anderson Syrup 10 Ml Udc PO 01/20/24 21:01 BID [facility] Dexamethasone Sodium Phosphate 10 mg 01/20/24 09:00 Dexamethasone 10 Mg/Ml Vial PO 01/20/24 21:01 BID [facility] Docusate Sodium 250 - 500 mg 01/20/24 09:00 Docusate Sodium 250 Mg Capsule PO DAILY STEFAN Hydromorphone HCl 1 mg 01/19/24 11:06 01/20/24 06:53 Hydromorphone 1 Mg/Ml Carpuject IVP 1 mg Q2H PRN Administration Pain 8 to 10 Ketorolac Tromethamine 15 mg 01/19/24 22:58 01/20/24 00:17 Ketorolac 15 Mg/Ml Vial IVP 01/24/24 22:57 15 mg Q6HR PRN Administration Severe Pain (Level 7-10) Lidocaine 1 patch 01/19/24 09:00 01/19/24 08:39 Lidocaine Patch 4% TOP 1 patch DAILY STEFAN Administration Methylprednisolone 4 mg 01/21/24 08:00 Methylprednisolone 4 Mg Tablet PO DAILYWM [facility] Ondansetron HCl 4 mg 01/18/24 21:25 Ondansetron 4 Mg/2 Ml Vial IVP Q6HR PRN Nausea / Vomiting Oxycodone HCl 5 mg 01/19/24 07:29 01/20/24 02:46 Oxycodone 5 Mg Tablet PO 5 mg Q4HR PRN Administration Moderate Pain (Level 4-6) Polyethylene Glycol 17 gm 01/20/24 09:00 Polyethylene Glycol 3350 17 Gm Packet PO DAILY STEFAN Pregabalin 200 mg 01/19/24 08:00 01/20/24 06:19 Pregabalin 100 Mg Capsule PO 200 mg TID STEFAN Administration Sodium Chloride 10 ml 01/18/24 21:25 01/19/24 22:37 Sodium Chloride Flush 0.9% 10 Ml Syringe IVP 10 ml PRN PRN Administration NEEDED PER PROVIDER ORDERS Sodium Chloride 10 ml 01/19/24 01:00 01/20/24 00:18 Sodium Chloride Flush 0.9% 10 Ml Syringe IVP 10 ml 0100,0900,1700 STEFAN Administration Tamsulosin HCl 0.4 mg 01/19/24 09:00 01/19/24 10:16 Tamsulosin 0.4 Mg Capsule PO 0.4 mg DAILY STEFAN Administration Tizanidine HCl 4 mg 01/20/24 08:00 Tizanidine 4 Mg Tablet PO TID STEFAN Objective Vital Signs/Intake & Output Reviewed Vital Signs: Yes Vital Signs: Vital Signs x48h Temp Pulse Resp BP Pulse Ox 01/20/24 00:13 36.7 C 100 H 20 118/79 95 Intake & Output: Intake & Output 01/18/24 01/19/24 01/20/24 01/21/24 05:59 05:59 05:59 05:59 Intake Total 175 / 175 2765 / 2765 700 / 700 Output Total 2650 / 2650 Balance 175 / 175 115 / 115 700 / 700 Weight (kg) 121.5 kg Objective General Appearance: positive Alert and Anxious (From pain) Eyes Bilateral: positive Normal inspection ENT: positive ENT inspection nml Neck: positive Nml inspection Respiratory: positive Chest non-tender and No respiratory distress Cardiovascular: positive Regular rate & rhythm Abdomen: positive Non-tender Skin: positive Color nml and Diaphoresis Extremities: positive Non-tender Neurologic/Psychiatric: positive Oriented x3 and Sensory loss (Numbness in his left leg which is not new, numbness in his right leg. Specifically, numbness in lateral plantar area); negative Sensation nml Lab Results 01/19/24 04:50 01/19/24 04:50 Other Labs: Lab Results x24hrs 01/19/24 Range/Units 04:50 WBC 4.6 L (4.8-10.8) x10^3/uL RBC 4.48 L (4.70-6.10) 10^6/uL Hgb 10.7 L (14.0-18.0) g/dL Hct 34.8 L (42.0-52.0) % MCV 77.7 L (80.0-94.0) fL MCH 23.9 L (27.0-31.0) pg MCHC 30.7 L (32.0-36.0) g/dL RDW 17.7 H (12.0-15.0) % Plt Count 342 (130-450) 10^3/uL MPV 8.8 (7.4-11.4) fL Neut # (Auto) 2.6 (1.5-6.6) 10^3/uL Lymph # (Auto) 1.4 L (1.5-3.5) 10^3/uL [place] # (Auto) 0.4 (0.0-1.0) 10^3/uL Eos # (Auto) 0.1 (0.0-0.7) 10^3/uL Baso # (Auto) 0.0 (0.0-0.1) 10^3/uL Absolute Nucleated RBC 0.00 x10^3/uL Nucleated RBC % 0.0 /100WBC Sodium 135 (135-145) mmol/L Potassium 3.5 (3.5-4.5) mmol/L Chloride 101 (101-111) mmol/L Carbon Dioxide 27 (21-32) mmol/L Anion Gap 7.0 (6-13) BUN 10 (6-20) mg/dL Creatinine 1.1 (0.6-1.3) mg/dL Estimated GFR (MDRD) 71 L (>89) Glucose 127 H (74-104) mg/dL Lactic Acid 0.9 (0.5-2.2) mmol/L Calcium 8.4 L (8.5-10.3) mg/dL Total Bilirubin 1.0 (0.2-1.0) mg/dL AST 22 (10-42) IU/L ALT 18 (10-60) IU/L Alkaline Phosphatase 62 (42-121) IU/L Total Protein 6.6 (6.4-8.9) g/dL Albumin 4.0 (3.2-5.5) g/dL Globulin 2.6 (2.1-4.2) g/dL Albumin/Globulin Ratio 1.5 (1.0-2.2) Assessment/Plan Problem List (1) Intractable back pain: Impression: History of laminectomy/back surgery x 4. Experiencing pain after mechanical fall. He describes this pain as sometimes sharp, sometimes spasms. He states that when he is having a flareup of back pain that he has numbness in his right leg. He also has been experiencing urinary retention CT of C, T, L-spine no acute fracture MRI L-spine with chronic degenerative changes, no acute abnormalities Admitted for intractable back pain for pain control PT/OT, Encourage ambulation as soon as possible Scheduled Tylenol, Lidocaine patch Oxycodone as needed, Hydromorphone dose has been increased to 1 mg every 2 hours Continue home Kristi 01/20/2024: I spoke to on-call neurosurgery, they report no additional workup is necessary, but he may benefit from steroids. I gave a 10 mg dose of Decadron IV last night. He will receive 10 mg twice daily for today and then transition to a Medrol Dosepak. He reported that the muscle relaxer he received in the ER helped with his pain, so I am changing his Flexeril to Zanaflex (2) Urinary retention: Impression: MRI L-spine was negative for acute abnormality Flomax Bladder scan per unit protocol, consider intermittent catheter Versus Lara (3) Hyperglycemia: Impression: A1c ordered
[2024-01-20 07:53] LABS: HCT - HEMATOCRIT 36.8 % (42.0-52.0); HGB - HEMOGLOBIN 11.4 g/dL (14.0-18.0); LYMPHOCYTES # (AUTO) 0.4 10^3/uL (1.5-3.5); MEAN CORPUSCULAR HEMOGLOBIN 24.4 pg (27.0-31.0); MEAN CORPUSCULAR VOLUME 78.6 fL (80.0-94.0); MEAN PLATELET VOLUME 8.8 fL (7.4-11.4); MONOCYTES # (AUTO) 0.4 10^3/uL (0.0-1.0); MONOCYTES % (AUTO) 4.2 %; NEUTROPHILS # (AUTO) 7.8 10^3/uL (1.5-6.6); NEUTROPHILS % (AUTO) 90.2 %; PLT - PLATELET COUNT 360 10^3/uL (130-450); RED BLOOD COUNT 4.68 10^6/uL (4.70-6.10); RED CELL DISTRIBUTION WIDTH 17.5 % (12.0-15.0); WHITE BLOOD COUNT 8.6 x10^3/uL (4.8-10.8)
[2024-01-20 08:01] LABS: ESTIMATED AVERAGE GLUCOSE 146 mg/dL (70-100); HEMOGLOBIN A1c% 6.7 % (4.27-6.07)
[2024-01-20 08:06] LABS: CALCIUM 8.7 mg/dL (8.5-10.3); CREATININE 0.9 mg/dL (0.6-1.3)
[2024-01-20] MEDS: polyethylene glycoL 3350 17 GM PACKET PO SCH (09:00)
[2024-01-20] MEDS: CHERRY SYRUP 10 ML UDC PO SCH (09:01)
[2024-01-20] MEDS: DOCUSATE SODIUM 250 MG CAPSULE PO SCH (09:02)
[2024-01-20] MEDS: tiZANidine 4 MG TABLET PO SCH ×2 (09:03→21:20)
[2024-01-20] MEDS: DEXAMETHASONE 10 MG/ML VIAL PO SCH (09:16)
--- NOTE | 2024-01-20 14:02 | PT Plan of Care ---
Medical/Surgical Past History Past History Medical History (Updated 01/19/24 @ 08:40 by Raymundo Espinoza DNP) Back pain with history of spinal surgery Peripheral neuropathy Surgical History (Updated 01/18/24 @ 10:20 by Yasmani Uriostegui RN) H/O gastric bypass
[2024-01-20] MEDS: LORazepam 1 MG TABLET PO PRN (17:26)
[2024-01-20] MEDS: oxyCODONE 5 MG TABLET PO SCH (21:20)
[2024-01-20] MEDS: HYDROmorphone 1 MG/ML CARPUJECT IVP PRN (22:41)
[2024-01-21 05:59] LABS: HCT - HEMATOCRIT 34.5 % (42.0-52.0); HGB - HEMOGLOBIN 10.6 g/dL (14.0-18.0); LYMPHOCYTES # (AUTO) 0.4 10^3/uL (1.5-3.5); MEAN CORPUSCULAR HEMOGLOBIN 24.1 pg (27.0-31.0); MEAN CORPUSCULAR HGB CONC 30.7 g/dL (32.0-36.0); MEAN CORPUSCULAR VOLUME 78.6 fL (80.0-94.0); MEAN PLATELET VOLUME 9.2 fL (7.4-11.4); MONOCYTES # (AUTO) 0.3 10^3/uL (0.0-1.0); MONOCYTES % (AUTO) 4.1 %; NEUTROPHILS # (AUTO) 7.4 10^3/uL (1.5-6.6); NEUTROPHILS % (AUTO) 90.2 %; PLT - PLATELET COUNT 358 10^3/uL (130-450); RED BLOOD COUNT 4.39 10^6/uL (4.70-6.10); RED CELL DISTRIBUTION WIDTH 17.7 % (12.0-15.0); WHITE BLOOD COUNT 8.2 x10^3/uL (4.8-10.8)
[2024-01-21 06:10] LABS: CALCIUM 8.5 mg/dL (8.5-10.3); CREATININE 0.9 mg/dL (0.6-1.3); POTASSIUM 3.8 mmol/L (3.5-4.5)
--- NOTE | 2024-01-21 08:17 | PROVIDER PROGRESS NOTE ---
Subjective Prog Note Date Prog Note Date: 01/21/24 Subjective Pt reports feeling: Improved Subjective: Numbness in legs unchanged. Pain is better controlled Current Medications Current Medications Current Medications: Current Medications Generic Name Dose Route Start Last Admin Trade Name Freq PRN Reason Stop Dose Admin Acetaminophen 1,000 mg 01/19/24 08:00 01/21/24 04:37 Acetaminophen 500 Mg Tablet PO 1,000 mg TID STEFAN Administration Docusate Sodium 250 - 500 mg 01/20/24 09:00 01/20/24 09:02 Docusate Sodium 250 Mg Capsule PO 250 mg DAILY STEFAN Administration Hydromorphone HCl 1 mg 01/20/24 18:55 01/21/24 04:09 Hydromorphone 1 Mg/Ml Carpuject IVP 1 mg Q1H PRN Administration Pain 8 to 10 Ketorolac Tromethamine 15 mg 01/19/24 22:58 01/20/24 18:00 Ketorolac 15 Mg/Ml Vial IVP 01/24/24 22:57 15 mg Q6HR PRN Administration Severe Pain (Level 7-10) Lidocaine 1 patch 01/19/24 09:00 01/20/24 09:00 Lidocaine Patch 4% TOP 1 patch DAILY STEFAN Administration Lorazepam 1 mg 01/20/24 10:41 01/21/24 00:15 Lorazepam 1 Mg Tablet PO 1 mg Q6H PRN Administration Anxiety Methylprednisolone 4 mg 01/21/24 08:00 Methylprednisolone 4 Mg Tablet PO DAILYWM STEFAN Ondansetron HCl 4 mg 01/18/24 21:25 Ondansetron 4 Mg/2 Ml Vial IVP Q6HR PRN Nausea / Vomiting Oxycodone HCl 10 mg 01/20/24 21:00 01/21/24 04:37 Oxycodone 5 Mg Tablet PO 10 mg Q4HR STEFAN Administration Polyethylene Glycol 17 gm 01/20/24 09:00 01/20/24 09:00 Polyethylene Glycol 3350 17 Gm Packet PO 17 gm DAILY STEFAN Administration Pregabalin 200 mg 01/19/24 08:00 01/21/24 04:38 Pregabalin 100 Mg Capsule PO 200 mg TID STEFAN Administration Sodium Chloride 10 ml 01/18/24 21:25 01/20/24 18:48 Sodium Chloride Flush 0.9% 10 Ml Syringe IVP 10 ml PRN PRN Administration NEEDED PER PROVIDER ORDERS Sodium Chloride 10 ml 01/19/24 01:00 01/21/24 00:49 Sodium Chloride Flush 0.9% 10 Ml Syringe IVP 10 ml 0100,0900,1700 STEFAN Administration Tamsulosin HCl 0.4 mg 01/19/24 09:00 01/20/24 09:01 Tamsulosin 0.4 Mg Capsule PO 0.4 mg DAILY STEFAN Administration Tizanidine HCl 8 mg 01/20/24 22:00 01/21/24 04:36 Tizanidine 4 Mg Tablet PO 8 mg TID STEFAN Administration Objective Vital Signs/Intake & Output Reviewed Vital Signs: Yes Vital Signs: Vital Signs x48h Temp Pulse Resp BP Pulse Ox 01/21/24 07:59 36.6 C 86 16 122/77 94 Intake & Output: Intake & Output 01/19/24 01/20/24 01/21/24 01/22/24 05:59 05:59 05:59 05:59 Intake Total 175 / 175 2765 / 2765 2713 / 2713 Output Total 2650 / 2650 2400 / 2400 2225 / 2225 Balance 175 / 175 115 / 115 313 / 313 -2225 / -2225 Weight (kg) 121.5 kg Objective General Appearance: positive Alert and Anxious (From pain) Eyes Bilateral: positive Normal inspection ENT: positive ENT inspection nml Neck: positive Nml inspection Respiratory: positive Chest non-tender and No respiratory distress Cardiovascular: positive Regular rate & rhythm Abdomen: positive Non-tender Skin: positive Color nml Extremities: positive Non-tender Neurologic/Psychiatric: positive Oriented x3 and Sensory loss (Numbness in his left leg which is not new, numbness in his right leg. Specifically, numbness in lateral plantar area); negative Sensation nml Lab Results 01/21/24 05:34 01/21/24 05:34 Other Labs: Lab Results x24hrs 01/21/24 01/20/24 Range/Units 05:34 04:25 WBC 8.2 (4.8-10.8) x10^3/uL RBC 4.39 L (4.70-6.10) 10^6/uL Hgb 10.6 L (14.0-18.0) g/dL Hct 34.5 L (42.0-52.0) % MCV 78.6 L (80.0-94.0) fL MCH 24.1 L (27.0-31.0) pg MCHC 30.7 L (32.0-36.0) g/dL RDW 17.7 H (12.0-15.0) % Plt Count 358 (130-450) 10^3/uL MPV 9.2 (7.4-11.4) fL Neut # (Auto) 7.4 H (1.5-6.6) 10^3/uL Lymph # (Auto) 0.4 L (1.5-3.5) 10^3/uL [place] # (Auto) 0.3 (0.0-1.0) 10^3/uL Eos # (Auto) 0.0 (0.0-0.7) 10^3/uL Baso # (Auto) 0.0 (0.0-0.1) 10^3/uL Absolute Nucleated RBC 0.00 x10^3/uL Nucleated RBC % 0.0 /100WBC Sodium 137 (135-145) mmol/L Potassium 3.8 (3.5-4.5) mmol/L Chloride 103 (101-111) mmol/L Carbon Dioxide 27 (21-32) mmol/L Anion Gap 7.0 (6-13) BUN 15 (6-20) mg/dL Creatinine 0.9 (0.6-1.3) mg/dL Estimated GFR (MDRD) 90 (>89) Glucose 216 H (74-104) mg/dL Estimat Average Glucose 146 H (70-100) mg/dL Hemoglobin A1c % 6.7 H (4.27-6.07) % Calcium 8.5 (8.5-10.3) mg/dL Assessment/Plan Problem List (1) Intractable back pain: Impression: History of laminectomy/back surgery x 4. Experiencing pain after mechanical fall. He describes this pain as sometimes sharp, sometimes spasms. He states that when he is having a flareup of back pain that he has numbness in his right leg. He also has been experiencing urinary retention CT of C, T, L-spine no acute fracture MRI L-spine with chronic degenerative changes, no acute abnormalities Admitted for intractable back pain for pain control PT/OT, Encourage ambulation as soon as possible Scheduled Tylenol, Lidocaine patch Oxycodone as needed, Hydromorphone dose has been increased to 1 mg every 2 hours Continue home Kristi 01/20/2024: I spoke to on-call neurosurgery, they report no additional workup is necessary, but he may benefit from steroids. I gave a 10 mg dose of Decadron IV last night. He will receive 10 mg twice daily for today and then transition to a Medrol Dosepak. He reported that the muscle relaxer he received in the ER helped with his pain, so I am changing his Flexeril to Zanaflex 01/21/2024: Oxycodone now scheduled. He states he has better baseline pain control with this. Only needing his hydromorphone every 3 hours or so. Hardly able to walk with physical therapy, so discharge planning is not clear. (2) Urinary retention: Impression: MRI L-spine was negative for acute abnormality Flomax Lara catheter in place. Will consider removal later today (3) Hyperglycemia: Impression: A1c 6.7. No antidiabetics at home Add SSI, Lantus Hyperglycemia complicated by steroid course
[2024-01-21] MEDS: methylPREDNISolone 4 MG TABLET PO SCH (08:36)
[2024-01-21 10:01] LABS: ABSOLUTE RETICS # AUTO 0.077 10^6/uL (0.020-0.110); RED BLOOD COUNT 4.43 10^6/uL (4.70-6.10); RETICULOCYTE COUNT % (AUTO) 1.74 % (0.5-2.3)
[2024-01-21 10:35] LABS: FERRITIN 13.6 ng/mL (23.9-336.2)
[2024-01-21] MEDS: INSULIN LISPRO 300 UNIT/3 ML PEN SUBQ SCH (11:33)
[2024-01-21 14:35] LABS: % IRON SATURATION 5 % (20-50); IRON 22 ug/dL (50-212); TOTAL IRON BINDING CAPACITY 454 ug/dL (250-450); TRANSFERRIN 324 mg/dL (203-362)
--- NOTE | 2024-01-21 15:59 | OT Plan of Care ---
OT Inpatient POC Diagnosis DIAGNOSIS Diagnosis: GLF with intractible LBP Chief Complaint: intense LBP with R LE paresthesias and urinary incontinence Onset of Chief Complaint: ETHNOARCHAEOLOGIST on 01/18/24 MEDICAL/SURGICAL HISTORY Medical History (Updated 01/19/24 @ 08:40 by Raymundo Espinoza DNP) Back pain with history of spinal surgery Peripheral neuropathy Surgical History (Updated 01/18/24 @ 10:20 by Yasmani Uriostegui, ABIDA) H/O gastric bypass Assessment and Goals ASSESSMENT Assessment: Pt is a 48 y/o male admit to [facility] on 01/17 s/p GLF and intractable back pain- Chronic hx of spinal surgeries with recent development of urinary incontinence as well as changing paresthesia to B LE. MRI results showed Chronic T12 compression fx as well as L 3 fluid consolidation. Per Medical Team - Neuro consult with no plan for surgical intervention at this time. BLT's maintained throughout session for pt comfort and neutral spine. Pt met supine in bed, A&Ox4, willing to participate with therapy. Reporting 10/05 lower back pain - RN update. Pt performed supine to sit (log roll) MOD A, sit to stand MOD AX2, and lateral steps to HOB with MOD Ax2 using 2WW - Pt required increased time once in standing use B UE for full support on 2WW prior to Full weight on B LE - Slightly forward flexed posture providing comfort for pt at this time in standing. Currently pt is MOD A LB and UB ADL's 2/2 limited functional mobility, strength, endurance, and pain. Rec urinal and bed hairston with nursing at this time. Overall pt presenting with decreased LE sensation, strength, endurance, activity tolerance and ADL/IADL status impairing functional indp. Will benefit from cont OT services daily during acute stay for progression towards goals. Rec d/c to SNF at this time pending progress and medical stability. -Activities of Daily Living Improve Upper Extremity Dressing to:: Modified Independent Improve Lower Extremity Dressing to:: Modified Independent Improve Grooming/Hygiene to:: Independent Improve Bathing to:: Independent Improve Toileting to:: Independent OT Inpatient Plan -Discharge Recommendations Discharge Location: Intermediate Facility Comment: Pending medical stability and pain control for safe mobility/ADL's
[2024-01-21] MEDS: INSULIN GLARGINE-YFGN 300 UNIT/3 ML PEN SUBQ SCH (21:36)
[2024-01-22 05:54] LABS: BASOPHILS % (AUTO) 0.1 %; EOSINOPHILS % (AUTO) 0.3 %; HCT - HEMATOCRIT 34.8 % (42.0-52.0); HGB - HEMOGLOBIN 10.6 g/dL (14.0-18.0); LYMPHOCYTES # (AUTO) 1.8 10^3/uL (1.5-3.5); LYMPHOCYTES % (AUTO) 25.4 %; MEAN CORPUSCULAR HEMOGLOBIN 24.1 pg (27.0-31.0); MEAN CORPUSCULAR HGB CONC 30.5 g/dL (32.0-36.0); MEAN CORPUSCULAR VOLUME 79.1 fL (80.0-94.0); MEAN PLATELET VOLUME 9.5 fL (7.4-11.4); MONOCYTES # (AUTO) 0.6 10^3/uL (0.0-1.0); MONOCYTES % (AUTO) 8.4 %; NEUTROPHILS # (AUTO) 4.7 10^3/uL (1.5-6.6); NEUTROPHILS % (AUTO) 65.2 %; PLT - PLATELET COUNT 335 10^3/uL (130-450); RED CELL DISTRIBUTION WIDTH 18.4 % (12.0-15.0); WHITE BLOOD COUNT 7.1 x10^3/uL (4.8-10.8)
[2024-01-22 06:05] LABS: CALCIUM 8.3 mg/dL (8.5-10.3); CREATININE 1.1 mg/dL (0.6-1.3); POTASSIUM 3.5 mmol/L (3.5-4.5)
[2024-01-22] MEDS: diazePAM 5 MG TABLET PO PRN (11:33)
--- NOTE | 2024-01-22 12:34 | PROVIDER PROGRESS NOTE ---
Subjective Prog Note Date Prog Note Date: 01/22/24 Prog Note Time: 08:15 Subjective Pt reports feeling: No change Subjective: continues to have severe pain in his back and numbness in his left foot. This has not gotten better. He has been able to have bowel movements normally, but urinary retention/incontinence persists. Rasheed is not in right now, but had incontinence. Current Medications Current Medications Current Medications: Current Medications Generic Name Dose Route Start Last Admin Trade Name Freq PRN Reason Stop Dose Admin Acetaminophen 1,000 mg 01/19/24 08:00 01/22/24 05:10 Acetaminophen 500 Mg Tablet PO 1,000 mg TID STEFAN Administration Diazepam 5 mg 01/22/24 07:50 01/22/24 11:33 Diazepam 5 Mg Tablet PO 5 mg Q6H PRN Administration muscle spasm Docusate Sodium 250 - 500 mg 01/20/24 09:00 01/22/24 08:15 Docusate Sodium 250 Mg Capsule PO 250 mg DAILY STEFAN Administration Hydromorphone HCl 1 mg 01/20/24 18:55 01/22/24 11:33 Hydromorphone 1 Mg/Ml Carpuject IVP 1 mg Q1H PRN Administration Pain 8 to 10 Insulin Glargine-yfgn 10 unit 01/21/24 21:00 01/21/24 21:36 Insulin Glargine-Yfgn 300 Unit/3 Ml Pen SUBQ 10 unit QPM STEFAN Administration Insulin Human Lispro 1 - 5 unit 01/21/24 12:00 01/22/24 11:48 Insulin Lispro 300 Unit/3 Ml Pen SUBQ Not Given 0800,1200,1700,2100 [facility] Protocol Ketorolac Tromethamine 15 mg 01/19/24 22:58 01/22/24 08:17 Ketorolac 15 Mg/Ml Vial IVP 01/24/24 22:57 15 mg Q6HR PRN Administration Severe Pain (Level 7-10) Lidocaine 1 patch 01/19/24 09:00 01/22/24 08:15 Lidocaine Patch 4% TOP 1 patch DAILY STEFAN Administration Methylprednisolone 4 mg 01/21/24 08:00 01/22/24 08:15 Methylprednisolone 4 Mg Tablet PO 4 mg DAILYWM STEFAN Administration Ondansetron HCl 4 mg 01/18/24 21:25 Ondansetron 4 Mg/2 Ml Vial IVP Q6HR PRN Nausea / Vomiting Oxycodone HCl 10 mg 01/20/24 21:00 01/22/24 09:35 Oxycodone 5 Mg Tablet PO 10 mg Q4HR STEFAN Administration Polyethylene Glycol 17 gm 01/20/24 09:00 01/22/24 08:16 Polyethylene Glycol 3350 17 Gm Packet PO 17 gm DAILY STEFAN Administration Pregabalin 200 mg 01/19/24 08:00 01/22/24 05:10 Pregabalin 100 Mg Capsule PO 200 mg TID STEFAN Administration Sodium Chloride 10 ml 01/18/24 21:25 01/20/24 18:48 Sodium Chloride Flush 0.9% 10 Ml Syringe IVP 10 ml PRN PRN Administration NEEDED PER PROVIDER ORDERS Sodium Chloride 10 ml 01/19/24 01:00 01/22/24 10:43 Sodium Chloride Flush 0.9% 10 Ml Syringe IVP 10 ml 0100,0900,1700 STEFAN Administration Tamsulosin HCl 0.4 mg 01/19/24 09:00 01/22/24 08:15 Tamsulosin 0.4 Mg Capsule PO 0.4 mg DAILY STEFAN Administration Tizanidine HCl 8 mg 01/20/24 22:00 01/22/24 05:45 Tizanidine 4 Mg Tablet PO 8 mg TID STEFAN Administration Objective Vital Signs/Intake & Output Vital Signs: Vital Signs x48h Temp Pulse Resp BP Pulse Ox O2 Flow Rate 01/22/24 07:52 36.6 C 90 19 130/79 93 0 Intake & Output: Intake & Output 01/20/24 01/21/24 01/22/24 01/23/24 05:59 05:59 05:59 05:59 Intake Total 2765 / 2765 2713 / 2713 2540 / 2540 360 / 360 Output Total 2650 / 2650 2400 / 2400 6600 / 6600 Balance 115 / 115 313 / 313 -4060 / -4060 360 / 360 Lab Results 01/22/24 05:13 01/22/24 05:13 Other Labs: Lab Results x24hrs 01/22/24 01/22/24 01/22/24 Range/Units 11: 07:43 05:13 WBC 7.1 (4.8-10.8) x10^3/uL RBC 4.40 L (4.70-6.10) 10^6/uL Hgb 10.6 L (14.0-18.0) g/dL Hct 34.8 L (42.0-52.0) % MCV 79.1 L (80.0-94.0) fL MCH 24.1 L (27.0-31.0) pg MCHC 30.5 L (32.0-36.0) g/dL RDW 18.4 H (12.0-15.0) % Plt Count 335 (130-450) 10^3/uL MPV 9.5 (7.4-11.4) fL Neut # (Auto) 4.7 (1.5-6.6) 10^3/uL Lymph # (Auto) 1.8 (1.5-3.5) 10^3/uL [place] # (Auto) 0.6 (0.0-1.0) 10^3/uL Eos # (Auto) 0.0 (0.0-0.7) 10^3/uL Baso # (Auto) 0.0 (0.0-0.1) 10^3/uL Absolute Nucleated RBC 0.00 x10^3/uL Nucleated RBC % 0.0 /100WBC Sodium 139 (135-145) mmol/L Potassium 3.5 (3.5-4.5) mmol/L Chloride 104 (101-111) mmol/L Carbon Dioxide 30 (21-32) mmol/L Anion Gap 5.0 L (6-13) BUN 18 (6-20) mg/dL Creatinine 1.1 (0.6-1.3) mg/dL Estimated GFR (MDRD) 71 L (>89) Glucose 104 (74-104) mg/dL POC Whole Bld Glucose 102 104 (70-100) mg/dL Calcium 8.3 L (8.5-10.3) mg/dL Iron (50-212) ug/dL TIBC (250-450) ug/dL % Saturation (20-50) % Transferrin (203-362) mg/dL 01/21/24 01/21/24 01/21/24 Range/Units 21:35 20:46 16:40 WBC (4.8-10.8) x10^3/uL RBC (4.70-6.10) 10^6/uL Hgb (14.0-18.0) g/dL Hct (42.0-52.0) % MCV (80.0-94.0) fL MCH (27.0-31.0) pg MCHC (32.0-36.0) g/dL RDW (12.0-15.0) % Plt Count (130-450) 10^3/uL MPV (7.4-11.4) fL Neut # (Auto) (1.5-6.6) 10^3/uL Lymph # (Auto) (1.5-3.5) 10^3/uL [place] # (Auto) (0.0-1.0) 10^3/uL Eos # (Auto) (0.0-0.7) 10^3/uL Baso # (Auto) (0.0-0.1) 10^3/uL Absolute Nucleated RBC x10^3/uL Nucleated RBC % /100WBC Sodium (135-145) mmol/L Potassium (3.5-4.5) mmol/L Chloride (101-111) mmol/L Carbon Dioxide (21-32) mmol/L Anion Gap (6-13) BUN (6-20) mg/dL Creatinine (0.6-1.3) mg/dL Estimated GFR (MDRD) (>89) Glucose (74-104) mg/dL POC Whole Bld Glucose 157 104 160 (70-100) mg/dL Calcium (8.5-10.3) mg/dL Iron (50-212) ug/dL TIBC (250-450) ug/dL % Saturation (20-50) % Transferrin (203-362) mg/dL 01/21/24 Range/Units 09:05 WBC (4.8-10.8) x10^3/uL RBC (4.70-6.10) 10^6/uL Hgb (14.0-18.0) g/dL Hct (42.0-52.0) % MCV (80.0-94.0) fL MCH (27.0-31.0) pg MCHC (32.0-36.0) g/dL RDW (12.0-15.0) % Plt Count (130-450) 10^3/uL MPV (7.4-11.4) fL Neut # (Auto) (1.5-6.6) 10^3/uL Lymph # (Auto) (1.5-3.5) 10^3/uL [place] # (Auto) (0.0-1.0) 10^3/uL Eos # (Auto) (0.0-0.7) 10^3/uL Baso # (Auto) (0.0-0.1) 10^3/uL Absolute Nucleated RBC x10^3/uL Nucleated RBC % /100WBC Sodium (135-145) mmol/L Potassium (3.5-4.5) mmol/L Chloride (101-111) mmol/L Carbon Dioxide (21-32) mmol/L Anion Gap (6-13) BUN (6-20) mg/dL Creatinine (0.6-1.3) mg/dL Estimated GFR (MDRD) (>89) Glucose (74-104) mg/dL POC Whole Bld Glucose (70-100) mg/dL Calcium (8.5-10.3) mg/dL Iron 22 L (50-212) ug/dL TIBC 454 H (250-450) ug/dL % Saturation 5 L (20-50) % Transferrin 324 (203-362) mg/dL Assessment/Plan Problem List (1) Intractable back pain: Impression: History of laminectomy/back surgery x 4. Experiencing pain after mechanical fall. He describes this pain as sometimes sharp, sometimes spasms. He states that when he is having a flareup of back pain that he has numbness in his right leg. He also has been experiencing urinary retention CT of C, T, L-spine no acute fracture MRI L-spine with chronic degenerative changes, no acute abnormalities Admitted for intractable back pain for pain control PT/OT, Encourage ambulation as soon as possible Scheduled Tylenol, Lidocaine patch Oxycodone as needed, Hydromorphone dose has been increased to 1 mg every hour. His pain remains severe. Today I am discontinuing the Medrol Dosepak and I will place him on Solu-Medrol 80 mg 3 times daily. We will see if we can relieve inflammation in this way. Additionally, I have contacted his neurosurgeon. I have spoken with their clinic. I have asked the staff here to push films over to [facility]. Continue home [place] 01/20/2024: I spoke to on-call neurosurgery, they report no additional workup is necessary, but he may benefit from steroids. I gave a 10 mg dose of Decadron IV last night. He will receive 10 mg twice daily for today and then transition to a Medrol Dosepak. He reported that the muscle relaxer he received in the ER helped with his pain, so I am changing his Flexeril to Zanaflex 01/21/2024: Oxycodone now scheduled. He states he has better baseline pain control with this. Only needing his hydromorphone every 3 hours or so. Hardly able to walk with physical therapy, so discharge planning is not clear. (2) Urinary retention: Impression: MRI L-spine was negative for acute abnormality. There is no evidence of cauda equina on these images. Flomax He has failed removal of the rasheed and I have ordered it to be replaced. (3) H/O gastric bypass: Impression: Laboratory Tests 01/21/24 01/22/24 09:05 05:13 Hgb 10.6 L Hct 34.8 L Iron 22 L TIBC 454 H % Saturation 5 L Transferrin 324 Ferritin 13.6 L Vitamin B12 230 Folate 6.6 With associated anemia probably from malabsorption. I have ordered IV Ferrlecit. I have also supplementing his B12 folic acid. I will start him on oral iron in coming days. (4) Hyperglycemia: Impression: A1c 6.7. No antidiabetics at home Add SSI, Lantus Hyperglycemia complicated by steroid course This patient's stay is approaching 96 hours at this critical access hospital. He continues to have intractable pain and urinary retention. I have discussed his case with his neurosurgeon's practice at [facility] in [place]. I am pushing his MRI films over to Dr. Mosley at [facility] in [place]. Pending our discussion, would transfer Mr. Carrasquillo if indicated. I have spent 55 minutes in the care of this patient today. This includes time [id number], review and ordering of diagnostic imaging and laboratory studie, s and consultation with other providers.. Monitoring the patient's signs symptoms, evaluation of medication effectiveness and patient's response to treatment.
[2024-01-22] MEDS: CYANOCOBALAMIN 1,000 MCG/ML VIAL SUBQ ONE (14:58)
[2024-01-22] MEDS: methylPREDNISolone SUCCINATE 40 MG/ML VIAL IVP SCH (14:58)
[2024-01-22] MEDS: FERRIC GLUCONATE 125 MG in SODIUM CHLORIDE 0.9% 100ML 100 ML IV ONE (14:59)
[2024-01-23 06:09] LABS: BASOPHILS % (AUTO) 0.1 %; HCT - HEMATOCRIT 34.7 % (42.0-52.0); HGB - HEMOGLOBIN 10.9 g/dL (14.0-18.0); LYMPHOCYTES # (AUTO) 0.4 10^3/uL (1.5-3.5); LYMPHOCYTES % (AUTO) 5.7 %; MEAN CORPUSCULAR HEMOGLOBIN 24.4 pg (27.0-31.0); MEAN CORPUSCULAR HGB CONC 31.4 g/dL (32.0-36.0); MEAN CORPUSCULAR VOLUME 77.8 fL (80.0-94.0); MEAN PLATELET VOLUME 9.2 fL (7.4-11.4); MONOCYTES # (AUTO) 0.2 10^3/uL (0.0-1.0); MONOCYTES % (AUTO) 2.3 %; NEUTROPHILS # (AUTO) 7.1 10^3/uL (1.5-6.6); NEUTROPHILS % (AUTO) 91.3 %; PLT - PLATELET COUNT 343 10^3/uL (130-450); RED BLOOD COUNT 4.46 10^6/uL (4.70-6.10); RED CELL DISTRIBUTION WIDTH 18.4 % (12.0-15.0); WHITE BLOOD COUNT 7.8 x10^3/uL (4.8-10.8)
[2024-01-23 06:23] LABS: CALCIUM 8.5 mg/dL (8.5-10.3); CREATININE 0.8 mg/dL (0.6-1.3); POTASSIUM 3.7 mmol/L (3.5-4.5)
--- NOTE | 2024-01-23 07:16 | PROVIDER PROGRESS NOTE ---
Subjective Prog Note Date Prog Note Date: 01/23/24 Prog Note Time: 08:30 Subjective Pt reports feeling: No change Subjective: He continues to require lots of pain medication. He has pain in his back down his right leg and numbness in his right foot. He is unable to stand secondary to his pain. He has been able to pivot to the commode. Current Medications Current Medications Current Medications: Current Medications Generic Name Dose Route Start Last Admin Trade Name Freq PRN Reason Stop Dose Admin Acetaminophen 1,000 mg 01/19/24 08:00 01/23/24 05:47 Acetaminophen 500 Mg Tablet PO 1,000 mg TID STEFAN Administration Diazepam 5 mg 01/22/24 07:50 01/23/24 01:29 Diazepam 5 Mg Tablet PO 5 mg Q6H PRN Administration muscle spasm Docusate Sodium 250 - 500 mg 01/20/24 09:00 01/22/24 08:15 Docusate Sodium 250 Mg Capsule PO 250 mg DAILY STEFAN Administration Folic Acid 1 mg 01/23/24 09:00 Folic Acid 1 Mg Tablet PO DAILY STEFAN Hydromorphone HCl 1 mg 01/20/24 18:55 01/23/24 04:11 Hydromorphone 1 Mg/Ml Carpuject IVP 1 mg Q1H PRN Administration Pain 8 to 10 Insulin Glargine-yfgn 10 unit 01/21/24 21:00 01/22/24 20:55 Insulin Glargine-Yfgn 300 Unit/3 Ml Pen SUBQ 10 unit QPM STEFAN Administration Insulin Human Lispro 1 - 5 unit 01/21/24 12:00 01/22/24 20:56 Insulin Lispro 300 Unit/3 Ml Pen SUBQ 1 unit 0800,1200,1700,2100 STEFAN Administration Protocol Ketorolac Tromethamine 15 mg 01/19/24 22:58 01/22/24 23:43 Ketorolac 15 Mg/Ml Vial IVP 01/24/24 22:57 15 mg Q6HR PRN Administration Severe Pain (Level 7-10) Lidocaine 1 patch 01/19/24 09:00 01/22/24 08:15 Lidocaine Patch 4% TOP 1 patch DAILY STEFAN Administration Methylprednisolone 80 mg 01/22/24 15:00 01/23/24 05:47 Methylprednisolone Succinate 40 Mg/Ml Vial IVP 80 mg TID STEFAN Administration Ondansetron HCl 4 mg 01/18/24 21:25 Ondansetron 4 Mg/2 Ml Vial IVP Q6HR PRN Nausea / Vomiting Oxycodone HCl 10 mg 01/20/24 21:00 01/23/24 05:48 Oxycodone 5 Mg Tablet PO 10 mg Q4HR STEFAN Administration Polyethylene Glycol 17 gm 01/20/24 09:00 01/22/24 08:16 Polyethylene Glycol 3350 17 Gm Packet PO 17 gm DAILY STEFAN Administration Pregabalin 200 mg 01/19/24 08:00 01/23/24 05:47 Pregabalin 100 Mg Capsule PO 200 mg TID STEFAN Administration Sodium Chloride 10 ml 01/18/24 21:25 01/23/24 04:16 Sodium Chloride Flush 0.9% 10 Ml Syringe IVP 10 ml PRN PRN Administration NEEDED PER PROVIDER ORDERS Sodium Chloride 10 ml 01/19/24 01:00 01/22/24 23:43 Sodium Chloride Flush 0.9% 10 Ml Syringe IVP 10 ml 0100,0900,1700 STEFAN Administration Tamsulosin HCl 0.4 mg 01/19/24 09:00 01/22/24 08:15 Tamsulosin 0.4 Mg Capsule PO 0.4 mg DAILY STEFAN Administration Tizanidine HCl 8 mg 01/20/24 22:00 01/23/24 05:47 Tizanidine 4 Mg Tablet PO 8 mg TID STEFAN Administration Objective Vital Signs/Intake & Output Reviewed Vital Signs: Yes Vital Signs: Vital Signs x48h Temp Pulse Resp BP Pulse Ox 01/23/24 01:29 36.5 C 83 20 133/73 H 93 Intake & Output: Intake & Output 01/21/24 01/22/24 01/23/24 01/24/24 05:59 05:59 05:59 05:59 Intake Total 2713 / 2713 2540 / 2540 2230 / 2230 Output Total 2400 / 2400 6600 / 6600 5725 / 5725 Balance 313 / 313 -4060 / -4060 -3495 / -3495 Objective General Appearance: positive No acute distress and Alert Eyes Bilateral: positive Normal inspection ENT: positive ENT inspection nml Neck: positive Nml inspection Respiratory: positive No respiratory distress and Breath sounds nml Cardiovascular: positive Regular rate & rhythm Abdomen: positive Non-tender and No distention Back: positive Nml inspection Skin: positive Color nml Extremities: positive No pedal edema Neurologic/Psychiatric: positive Oriented x3 and Other (His exam remains unchanged from yesterday. He has 4 out of 5 strength in knee flexion and extension dorsiflexion and plantarflexion on the right side otherwise he has 5 out of 5 strength in his lower extremities. He has altered sensation on both plantar and dorsal aspects of his right foot in the ) Reflexes: Knee (R): 2+ and Knee (L): 2+ Lab Results 01/23/24 05:42 01/23/24 05:42 Other Labs: Lab Results x24hrs 01/23/24 01/22/24 01/22/24 Range/Units 05:42 20:20 16:37 WBC 7.8 (4.8-10.8) x10^3/uL RBC 4.46 L (4.70-6.10) 10^6/uL Hgb 10.9 L (14.0-18.0) g/dL Hct 34.7 L (42.0-52.0) % MCV 77.8 L (80.0-94.0) fL MCH 24.4 L (27.0-31.0) pg MCHC 31.4 L (32.0-36.0) g/dL RDW 18.4 H (12.0-15.0) % Plt Count 343 (130-450) 10^3/uL MPV 9.2 (7.4-11.4) fL Neut # (Auto) 7.1 H (1.5-6.6) 10^3/uL Lymph # (Auto) 0.4 L (1.5-3.5) 10^3/uL [place] # (Auto) 0.2 (0.0-1.0) 10^3/uL Eos # (Auto) 0.0 (0.0-0.7) 10^3/uL Baso # (Auto) 0.0 (0.0-0.1) 10^3/uL Absolute Nucleated RBC 0.00 x10^3/uL Nucleated RBC % 0.0 /100WBC Sodium 139 (135-145) mmol/L Potassium 3.7 (3.5-4.5) mmol/L Chloride 106 (101-111) mmol/L Carbon Dioxide 27 (21-32) mmol/L Anion Gap 6.0 (6-13) BUN 16 (6-20) mg/dL Creatinine 0.8 (0.6-1.3) mg/dL Estimated GFR (MDRD) 103 (>89) Glucose 144 H (74-104) mg/dL POC Whole Bld Glucose 161 193 (70-100) mg/dL Calcium 8.5 (8.5-10.3) mg/dL 01/22/24 01/22/24 Range/Units 11:27 07:43 WBC (4.8-10.8) x10^3/uL RBC (4.70-6.10) 10^6/uL Hgb (14.0-18.0) g/dL Hct (42.0-52.0) % MCV (80.0-94.0) fL MCH (27.0-31.0) pg MCHC (32.0-36.0) g/dL RDW (12.0-15.0) % Plt Count (130-450) 10^3/uL MPV (7.4-11.4) fL Neut # (Auto) (1.5-6.6) 10^3/uL Lymph # (Auto) (1.5-3.5) 10^3/uL [place] # (Auto) (0.0-1.0) 10^3/uL Eos # (Auto) (0.0-0.7) 10^3/uL Baso # (Auto) (0.0-0.1) 10^3/uL Absolute Nucleated RBC x10^3/uL Nucleated RBC % /100WBC Sodium (135-145) mmol/L Potassium (3.5-4.5) mmol/L Chloride (101-111) mmol/L Carbon Dioxide (21-32) mmol/L Anion Gap (6-13) BUN (6-20) mg/dL Creatinine (0.6-1.3) mg/dL Estimated GFR (MDRD) (>89) Glucose (74-104) mg/dL POC Whole Bld Glucose 102 104 (70-100) mg/dL Calcium (8.5-10.3) mg/dL Assessment/Plan Problem List (1) Intractable back pain: Impression: 01/23/2024: I spoke with the transfer center at [facility]. I had had images pushed there yesterday. They reviewed records thoroughly and stated that this patient is not their patient. They encouraged me to continue to follow-up with [facility] for further review of this patient's case.History of laminectomy/back surgery x 4. Experiencing pain after mechanical fall. He describes this pain as sometimes sharp, sometimes spasms. He states that when he is having a flareup of back pain that he has numbness in his right leg. He also has been experiencing urinary retention. 1300 cc out on Rasheed placement last night I spoke with both Dr. Jitendra Mosley and Dr. Durga Minor at [facility] in [place]. They are part of his neurosurgery team. Dr. Minor is on-call and Dr. Mosley is his primary neurosurgeon. I reviewed the events of the last 5 days. It is clear that the findings on this patient's MRI are not consistent with his pattern of pain nor with his urinary retention. It is also clear that this patient would benefit from complex interventional pain management. His neurosurgery team agreed that they would gladly consult on his case should he be transferred [facility] I spoke with Dr. Josué Herman hospitalist service at [facility]. Who agrees to accept the patient. He will be transferred to [facility] pending bed availability. Patient was informed of the transfer and was happy to hear this. I have adjusted his pain medication today. He is using Dilaudid and milligram every hour in addition to Valium 5 mg p.o. every 6 hours and also oxycodone 10 mg every 4 hours. He is on Solu-Medrol 80 mg 3 times daily for relief of inflammation. Additionally he is on scheduled Tylenol Lidoderm patch and Lyrica. He still continues to have 8-10 out of 10 pain. He is awake and alert has not experienced any hypoxia does not appear oversedated. I will further adjust his parenteral and oral narcotics to try to gain better pain control to allow him to rest. Oxycodone 10mg every 3h and dilaudid IV 2mg every 2 hours. continuous pulse ox has been ordered. 01/22/24: Oxycodone as needed, Hydromorphone dose has been increased to 1 mg every hour. His pain remains severe. Today I am discontinuing the Medrol Dosepak and I will place him on Solu-Medrol 80 mg 3 times daily. We will see if we can relieve inflammation in this way. Additionally, I have contacted his neurosurgeon. I have spoken with their clinic. I have asked the staff here to push films over to [facility]. Continue home Kristi 01/20/2024: I spoke to on-call neurosurgery, they report no additional workup is necessary, but he may benefit from steroids. I gave a 10 mg dose of Decadron IV last night. He will receive 10 mg twice daily for today and then transition to a Medrol Dosepak. He reported that the muscle relaxer he received in the ER helped with his pain, so I am changing his Flexeril to Zanaflex 01/21/2024: Oxycodone now scheduled. He states he has better baseline pain control with this. Only needing his hydromorphone every 3 hours or so. Hardly able to walk with physical therapy, so discharge planning is not clear. (2) Urinary retention: Impression: MRI L-spine was negative for acute abnormality. There is no evidence of cauda equina on these images. Flomax He has failed removal of the rasheed and I have ordered it to be replaced on 01/21. 1300 cc out. would recommend not attempting removal until at least PM 01/23. (3) H/O gastric bypass: Impression: Laboratory Tests 01/21/24 01/22/24 09:05 05:13 Hgb 10.6 L Hct 34.8 L Iron 22 L TIBC 454 H % Saturation 5 L Transferrin 324 Ferritin 13.6 L Vitamin B12 230 Folate 6.6 With associated anemia probably from malabsorption. I have ordered IV Ferrlecit. I have also supplementing his B12 folic acid. I will start him on oral iron in coming days. (4) Hyperglycemia: Impression: A1c 6.7. No antidiabetics at home Add SSI, Lantus Hyperglycemia complicated by steroid course I have spent 70 minutes in the care of this patient today. This includes time [id number], review and ordering of diagnostic imaging and laboratory studie, s and consultation with other providers.. Monitoring the patient's signs symptoms, evaluation of medication effectiveness and patient's response to treatment.
[2024-01-23] MEDS: FOLIC ACID 1 MG TABLET PO SCH (08:30)
[2024-01-23] MEDS: CYANOCOBALAMIN 500 MCG TABLET PO SCH (10:10)
[2024-01-23] MEDS: FERROUS SULFATE 325 MG TABLET PO SCH (10:10)
[2024-01-23] MEDS: HYDROmorphone 1 MG/ML CARPUJECT IVP PRN ×2 (17:05→20:14)
[2024-01-23] MEDS: oxyCODONE 5 MG TABLET PO SCH (18:55)
[2024-01-24 06:02] LABS: BASOPHILS % (AUTO) 0.1 %; HCT - HEMATOCRIT 36.8 % (42.0-52.0); HGB - HEMOGLOBIN 10.9 g/dL (14.0-18.0); LYMPHOCYTES # (AUTO) 0.4 10^3/uL (1.5-3.5); MEAN CORPUSCULAR HEMOGLOBIN 24.2 pg (27.0-31.0); MEAN CORPUSCULAR HGB CONC 29.6 g/dL (32.0-36.0); MEAN CORPUSCULAR VOLUME 81.6 fL (80.0-94.0); MEAN PLATELET VOLUME 9.2 fL (7.4-11.4); MONOCYTES # (AUTO) 0.6 10^3/uL (0.0-1.0); MONOCYTES % (AUTO) 5.3 %; NEUTROPHILS # (AUTO) 9.7 10^3/uL (1.5-6.6); NEUTROPHILS % (AUTO) 89.7 %; PLT - PLATELET COUNT 335 10^3/uL (130-450); RED BLOOD COUNT 4.51 10^6/uL (4.70-6.10); RED CELL DISTRIBUTION WIDTH 18.9 % (12.0-15.0); WHITE BLOOD COUNT 10.8 x10^3/uL (4.8-10.8)
[2024-01-24 06:23] LABS: CALCIUM 8.6 mg/dL (8.5-10.3); POTASSIUM 3.9 mmol/L (3.5-4.5)
--- NOTE | 2024-01-24 12:51 | PROVIDER PROGRESS NOTE ---
Subjective Prog Note Date Prog Note Date: 01/24/24 Prog Note Time: 09:00 Subjective Pt reports feeling: Improved Subjective: He is not completely better but was able to get several hours of sleep last night due to changes in pain control regimen. at mid morning was able to ambulate almost to the bathroom, but did not make it all the way. Current Medications Current Medications Current Medications: Current Medications Generic Name Dose Route Start Last Admin Trade Name Freq PRN Reason Stop Dose Admin Acetaminophen 1,000 mg 01/19/24 08:00 01/24/24 05:58 Acetaminophen 500 Mg Tablet PO 1,000 mg TID STEFAN Administration Cyanocobalamin 500 mcg 01/23/24 10:00 01/24/24 08:10 Cyanocobalamin 500 Mcg Tablet PO 500 mcg DAILY STEFAN Administration Diazepam 5 mg 01/22/24 07:50 01/23/24 22:58 Diazepam 5 Mg Tablet PO 5 mg Q6H PRN Administration muscle spasm Docusate Sodium 250 - 500 mg 01/20/24 09:00 01/24/24 08:10 Docusate Sodium 250 Mg Capsule PO 250 mg DAILY STEFAN Administration Ferrous Sulfate 325 mg 01/23/24 10:00 01/24/24 08:07 Ferrous Sulfate 325 Mg Tablet PO 325 mg DAILYWM STEFAN Administration Folic Acid 1 mg 01/23/24 09:00 01/24/24 08:08 Folic Acid 1 Mg Tablet PO 1 mg DAILY STEFAN Administration Hydromorphone HCl 2 mg 01/23/24 18:40 01/24/24 12:45 Hydromorphone 1 Mg/Ml Carpuject IVP 2 mg Q2HR PRN Administration Pain 8 to 10 Insulin Glargine-yfgn 10 unit 01/21/24 21:00 01/23/24 20:14 Insulin Glargine-Yfgn 300 Unit/3 Ml Pen SUBQ 10 unit QPM STEFAN Administration Insulin Human Lispro 1 - 5 unit 01/21/24 12:00 01/24/24 11:45 Insulin Lispro 300 Unit/3 Ml Pen SUBQ Not Given 0800,1200,1700,2100 [facility] Protocol Ketorolac Tromethamine 15 mg 01/19/24 22:58 01/24/24 08:06 Ketorolac 15 Mg/Ml Vial IVP 01/24/24 22:57 15 mg Q6HR PRN Administration Severe Pain (Level 7-10) Lidocaine 1 patch 01/19/24 09:00 01/24/24 08:08 Lidocaine Patch 4% TOP 1 patch DAILY STEFAN Administration Methylprednisolone 80 mg 01/22/24 15:00 01/24/24 06:00 Methylprednisolone Succinate 40 Mg/Ml Vial IVP 80 mg TID STEFAN Administration Ondansetron HCl 4 mg 01/18/24 21:25 Ondansetron 4 Mg/2 Ml Vial IVP Q6HR PRN Nausea / Vomiting Oxycodone HCl 10 mg 01/23/24 19:00 01/24/24 11:56 Oxycodone 5 Mg Tablet PO 10 mg Q3HR STEFAN Administration Polyethylene Glycol 17 gm 01/20/24 09:00 01/24/24 10:55 Polyethylene Glycol 3350 17 Gm Packet PO Not Given DAILY STEFAN Pregabalin 200 mg 01/19/24 08:00 01/24/24 05:59 Pregabalin 100 Mg Capsule PO 200 mg TID STEFAN Administration Sodium Chloride 10 ml 01/18/24 21:25 01/24/24 10:23 Sodium Chloride Flush 0.9% 10 Ml Syringe IVP 10 ml PRN PRN Administration NEEDED PER PROVIDER ORDERS Sodium Chloride 10 ml 01/19/24 01:00 01/24/24 08:08 Sodium Chloride Flush 0.9% 10 Ml Syringe IVP 10 ml 0100,0900,1700 STEFAN Administration Tamsulosin HCl 0.4 mg 01/19/24 09:00 01/24/24 08:07 Tamsulosin 0.4 Mg Capsule PO 0.4 mg DAILY STEFAN Administration Tizanidine HCl 8 mg 01/20/24 22:00 01/24/24 06:00 Tizanidine 4 Mg Tablet PO 8 mg TID STEFAN Administration Objective Vital Signs/Intake & Output Reviewed Vital Signs: Yes Vital Signs: Vital Signs x48h Temp Pulse Resp BP Pulse Ox 01/24/24 08:31 36.6 C 63 16 106/74 94 Intake & Output: Intake & Output 01/22/24 01/23/24 01/24/24 01/25/24 05:59 05:59 05:59 05:59 Intake Total 2540 / 2540 2230 / 2230 3390 / 3390 1240 / 1240 Output Total 6600 / 6600 5725 / 5725 2400 / 2400 1400 / 1400 Balance -4060 / -4060 -3495 / -3495 990 / 990 -160 / -160 Objective General Appearance: positive No acute distress and Alert Eyes Bilateral: positive Normal inspection ENT: positive ENT inspection nml Neck: positive Nml inspection Respiratory: positive No respiratory distress and Breath sounds nml Cardiovascular: positive Regular rate & rhythm Abdomen: positive Non-tender and No distention Back: positive Nml inspection Skin: positive Color nml Extremities: positive No pedal edema Neurologic/Psychiatric: positive Oriented x3 and Other (His exam remains unchanged He has 4 out of 5 strength in knee flexion and extension dorsiflexion and plantarflexion on the right side otherwise he has 5 out of 5 strength in his lower extremities. He has altered sensation on both plantar and dorsal aspects of his right foot) Reflexes: Knee (R): 2+ and Knee (L): 2+ Lab Results 01/24/24 05:55 01/24/24 05:55 Other Labs: Lab Results x24hrs 01/24/24 01/23/24 01/23/24 Range/Units 05:55 20:12 16:46 WBC 10.8 (4.8-10.8) x10^3/uL RBC 4.51 L (4.70-6.10) 10^6/uL Hgb 10.9 L (14.0-18.0) g/dL Hct 36.8 L (42.0-52.0) % MCV 81.6 (80.0-94.0) fL MCH 24.2 L (27.0-31.0) pg MCHC 29.6 L (32.0-36.0) g/dL RDW 18.9 H (12.0-15.0) % Plt Count 335 (130-450) 10^3/uL MPV 9.2 (7.4-11.4) fL Neut # (Auto) 9.7 H (1.5-6.6) 10^3/uL Lymph # (Auto) 0.4 L (1.5-3.5) 10^3/uL [place] # (Auto) 0.6 (0.0-1.0) 10^3/uL Eos # (Auto) 0.0 (0.0-0.7) 10^3/uL Baso # (Auto) 0.0 (0.0-0.1) 10^3/uL Absolute Nucleated RBC 0.00 x10^3/uL Nucleated RBC % 0.0 /100WBC Sodium 137 (135-145) mmol/L Potassium 3.9 (3.5-4.5) mmol/L Chloride 105 (101-111) mmol/L Carbon Dioxide 26 (21-32) mmol/L Anion Gap 6.0 (6-13) BUN 23 H (6-20) mg/dL Creatinine 1.0 (0.6-1.3) mg/dL Estimated GFR (MDRD) 79 L (>89) Glucose 192 H (74-104) mg/dL POC Whole Bld Glucose 144 173 (70-100) mg/dL Calcium 8.6 (8.5-10.3) mg/dL Assessment/Plan Problem List (1) Intractable back pain: Impression: 01/24/24:Adjustments to regimen of pain control have been effective. He has been able to get several hours of consecutive sleep. While he is not able to ambulate to the bathroom he was able to ambulate about long-term there. He has hope that he will get help through transfer and the possibility of interventional pain management along with neurosurgical consultation. His Rashede will remain in place. He will remain on Solu-Medrol IV. I would like to continue continuous pulse ox as long as he is on this degree of pain medication. His obesity is certainly a contributor to the problems with his back. He has chronic nutritional deficiencies secondary to his history of gastric bypass surgery yet he remains with an elevated BMI. He is accepted for transfer to [facility]- awaiting bed. 01/23/2024: I spoke with the transfer center at [facility]. I had had images pushed there yesterday. They reviewed records thoroughly and stated that this patient is not their patient. They encouraged me to continue to follow-up with Hattie Belcher for further review of this patient's case.History of laminectomy/back surgery x 4. Experiencing pain after mechanical fall. He describes this pain as sometimes sharp, sometimes spasms. He states that when he is having a flareup of back pain that he has numbness in his right leg. He also has been experiencing urinary retention. 1300 cc out on Rasheed placement last night I spoke with both Dr. Jitendra Mosley and Dr. Durga Minor at [facility] in [place]. They are part of his neurosurgery team. Dr. Minor is on-call and Dr. Mosley is his primary neurosurgeon. I reviewed the events of the last 5 days. It is clear that the findings on this patient's MRI are not consistent with his pattern of pain nor with his urinary retention. It is also clear that this patient would benefit from complex interventional pain management. His neurosurgery team agreed that they would gladly consult on his case should he be transferred over to [facility] I spoke with Dr. Josué Herman hospitalist service at [facility]. Who agrees to accept the patient. He will be transferred to [place] pending bed availability. Patient was informed of the transfer and was happy to hear this. I have adjusted his pain medication today. He is using Dilaudid and milligram every hour in addition to Valium 5 mg p.o. every 6 hours and also oxycodone 10 mg every 4 hours. He is on Solu-Medrol 80 mg 3 times daily for relief of inflammation. Additionally he is on scheduled Tylenol Lidoderm patch and Lyrica. He still continues to have 8-10 out of 10 pain. He is awake and alert has not experienced any hypoxia does not appear oversedated. I will further adjust his parenteral and oral narcotics to try to gain better pain control to allow him to rest. Oxycodone 10mg every 3h and dilaudid IV 2mg every 2 hours. continuous pulse ox has been ordered. 01/22/24: Oxycodone as needed, Hydromorphone dose has been increased to 1 mg every hour. His pain remains severe. Today I am discontinuing the Medrol Dosepak and I will place him on Solu-Medrol 80 mg 3 times daily. We will see if we can relieve inflammation in this way. Additionally, I have contacted his neurosurgeon. I have spoken with their clinic. I have asked the staff here to push films over to [facility]. Continue home Lyrica 01/20/2024: I spoke to on-call neurosurgery, they report no additional workup is necessary, but he may benefit from steroids. I gave a 10 mg dose of Decadron IV last night. He will receive 10 mg twice daily for today and then transition to a Medrol Dosepak. He reported that the muscle relaxer he received in the ER helped with his pain, so I am changing his Flexeril to Zanaflex 01/21/2024: Oxycodone now scheduled. He states he has better baseline pain control with this. Only needing his hydromorphone every 3 hours or so. Hardly able to walk with physical therapy, so discharge planning is not clear. (2) Urinary retention: Impression: MRI L-spine was negative for acute abnormality. There is no evidence of cauda equina on these images. Flomax He has failed removal of the rasheed and I have ordered it to be replaced on 01/21. 1300 cc out. I will not attempt removal until at least PM 01/23. (3) H/O gastric bypass: Impression: Laboratory Tests 01/21/24 01/22/24 09:05 05:13 Hgb 10.6 L Hct 34.8 L Iron 22 L TIBC 454 H % Saturation 5 L Transferrin 324 Ferritin 13.6 L Vitamin B12 230 Folate 6.6 With associated anemia probably from malabsorption. I have ordered IV Ferrlecit. I have also supplementing his B12 folic acid. I will start him on oral iron in coming days. (4) Hyperglycemia: Impression: A1c 6.7. No antidiabetic meds at home Add SSI, Lantus Hyperglycemia complicated by steroid course. He will need primary care followup for further discussion and consideration of outpatient treatment for DM on discharge. I have spent 45 minutes in the care of this patient today. This includes time [id number], review and ordering of diagnostic imaging and laboratory studies.. Monitoring the patient's signs symptoms, evaluation of medication effectiveness and patient's response to treatment.
[2024-01-25 06:10] LABS: BASOPHILS % (AUTO) 0.1 %; HCT - HEMATOCRIT 33.7 % (42.0-52.0); HGB - HEMOGLOBIN 10.3 g/dL (14.0-18.0); LYMPHOCYTES # (AUTO) 0.6 10^3/uL (1.5-3.5); MEAN CORPUSCULAR HEMOGLOBIN 24.1 pg (27.0-31.0); MEAN CORPUSCULAR HGB CONC 30.6 g/dL (32.0-36.0); MEAN CORPUSCULAR VOLUME 78.9 fL (80.0-94.0); MEAN PLATELET VOLUME 9.8 fL (7.4-11.4); MONOCYTES # (AUTO) 0.7 10^3/uL (0.0-1.0); NEUTROPHILS # (AUTO) 8.5 10^3/uL (1.5-6.6); NEUTROPHILS % (AUTO) 85.1 %; PLT - PLATELET COUNT 314 10^3/uL (130-450); RED BLOOD COUNT 4.27 10^6/uL (4.70-6.10)
[2024-01-25 06:19] LABS: CALCIUM 8.3 mg/dL (8.5-10.3); CREATININE 0.9 mg/dL (0.6-1.3); POTASSIUM 3.7 mmol/L (3.5-4.5)
[2024-01-25 07:48] VITALS: O2SAT 98
--- NOTE | 2024-01-25 15:35 | Discharge Summary ---
"Discharge Summary Admit Date: 01/18/24 Discharge Date: 01/25/24 Discharging Provider: Chaparrita Marks PA-C Primary Care Provider: none Code Status: Attempt Resuscitation DIAGNOSES Discharge Diagnoses with Status of Each Condition: Intractable back pain with right lower extremity radicular symptoms and right foot numbness present on admission remains acute Urinary retention, persistent History of gastric bypass, present on admission Iron deficiency anemia, present on admission Hyperglycemia, present on admission persistent HPI History of Present Illness: Per telehealth admitting provider: 48 y old male with PMH Chronic back pain s/p back leminectomy and back surgeries X 4, obesity s/p gastric bypass presented to ER s/p mechanical fall. As per pt, he hit to the ground really bad. Denies head injury, or LOC s/o numbness in right leg and foot. Denies urinary or fecal incontinence On presentaion, pt was afebrile Labs showed WBC 11.6, lactic acid 2.8 CT of cervical, thoracic and Lumbar spine showed no acute fracture. MRI of L spine showed chronic degenerative changes As per Aaliyah ([employer]), she consulted with neurosurgeon transit operations supervisor ( Dr Hernandez), who recommended patient to be admitted at the hospital for pain copntrol and outpatient follow up Pt is admitted due to intractable back pain for pain control and PT/OT CONSULTS | PROCEDURES Procedures: All relevant imaging studies have been pushed to [facility]. Cervical spine CT: No fracture Thoracic spine CT: Stable previous compression deformities. No visualized acute fracture Lumbar CT: Postsurgical and degenerative change without visualized acute fracture Lumbar MRI: #1 postprocedural changes in the lumbar spine. 2.2 cm fluid collection posterior to the right laminectomy bed at the level of L3. #2 multilevel degenerative changes of the lumbar spine most pronounced at L1-2 where there is severe's and alkalosis and mild bilateral neuroforaminal foraminal stenoses #3 mild anterior compression fracture of T12, chronic. #4. 3.3 cm T2 hyperintense left adrenal nodule, indeterminate HOSPITAL COURSE Hospital Course: (1) Intractable back pain: Impression: 01/25/24:Able to ambulate to the bathroom overnight once. Then had exacerbation of back pain when he turned to flush the toilet. Has been in severe pain ever since then. Continues to complain of persistent numbness in the right foot. Rasheed removal has not been attempted. At the time of transfer his current pain medication orders are: Tylenol 1000 mg p.o. 3 times daily, Valium 5 mg p.o. every 6 hours as needed, hydromorphone 2 mg IV every 2 hours as needed, Lidoderm patch daily, oxycodone 10 mg every 3 hours as needed, ketorolac 15 mg IV every 6 hours as needed this was discontinued on 01/24/24. Lyrica 200 mg p.o. 3 times daily, tizanidine 8 mg p.o. 3 times daily. 01/24/24:Adjustments to regimen of pain control have been effective. He has been able to get several hours of consecutive sleep. While he is not able to ambulate to the bathroom he was able to ambulate about long term there. He has hope that he will get help through transfer and the possibility of interventional pain management along with neurosurgical consultation. His Rasheed will remain in place. He will remain on Solu-Medrol IV. I would like to continue continuous pulse ox as long as he is on this degree of pain medication. His obesity is certainly a contributor to the problems with his back. He has chronic nutritional deficiencies secondary to his history of gastric bypass surgery yet he remains with an elevated BMI. He is accepted for transfer to [facility]- awaiting bed. 01/23/2024: I spoke with the transfer center at [facility]. I had had images pushed there yesterday. They reviewed records thoroughly and stated that this patient is not their patient. They encouraged me to continue to follow-up with [facility] for further review of this patient's case.History of laminectomy/back surgery x 4. Experiencing pain after mechanical fall. He describes this pain as sometimes sharp, sometimes spasms. He states that when he is having a flareup of back pain that he has numbness in his right leg. He also has been experiencing urinary retention. 1300 cc out on Rasheed placement last night I spoke with both Dr. Jitendra Mosley and Dr. Durga Minor at [facility] in [place]. They are part of his neurosurgery team. Dr. Minor is on-call and Dr. Mosley is his primary neurosurgeon. I reviewed the events of the last 5 days. It is clear that the findings on this patient's MRI are not consistent with his pattern of pain nor with his urinary retention. It is also clear that this patient would benefit from complex interventional pain management. His neurosurgery team agreed that they would gladly consult on his case should he be transferred over to [facility] I spoke with Dr. Josué Herman hospitalist service at [facility]. Who agrees to accept the patient. He will be transferred to [facility] pending bed availability. Patient was informed of the transfer and was happy to hear this. I have adjusted his pain medication today. He is using Dilaudid and milligram every hour in addition to Valium 5 mg p.o. every 6 hours and also oxycodone 10 mg every 4 hours. He is on Solu-Medrol 80 mg 3 times daily for relief of inflammation. Additionally he is on scheduled Tylenol Lidoderm patch and Lyrica. He still continues to have 8-10 out of 10 pain. He is awake and alert has not experienced any hypoxia does not appear oversedated. I will further adjust his parenteral and oral narcotics to try to gain better pain control to allow him to rest. Oxycodone 10mg every 3h and dilaudid IV 2mg every 2 hours. continuous pulse ox has been ordered. 01/22/24: Oxycodone as needed, Hydromorphone dose has been increased to 1 mg every hour. His pain remains severe. Today I am discontinuing the Medrol Dosepak and I will place him on Solu-Medrol 80 mg 3 times daily. We will see if we can relieve inflammation in this way. Additionally, I have contacted his neurosurgeon. I have spoken with their clinic. I have asked the staff here to push films over to [facility]. Continue home Lyrica 01/20/2024: I spoke to on-call neurosurgery, they report no additional workup is necessary, but he may benefit from steroids. I gave a 10 mg dose of Decadron IV last night. He will receive 10 mg twice daily for today and then transition to a Medrol Dosepak. He reported that the muscle relaxer he received in the ER helped with his pain, so I am changing his Flexeril to Zanaflex 01/21/2024: Oxycodone now scheduled. He states he has better baseline pain control with this. Only needing his hydromorphone every 3 hours or so. Hardly able to walk with physical therapy, so discharge planning is not clear. (2) Urinary retention: Impression: MRI L-spine was negative for acute abnormality. There is no evidence of cauda equina on these images. Cristianmax He has failed removal of the rasheed and I have ordered it to be replaced on 01/21. 1300 cc out. I will not attempt removal until at least PM 01/23.I have held Rasheed Removal pending transfer. (3) H/O gastric bypass: Impression: Laboratory Tests 01/21/24 01/22/24 09:05 05:13 Hgb 10.6 L Hct 34.8 L Iron 22 L TIBC 454 H % Saturation 5 L Transferrin 324 Ferritin 13.6 L Vitamin B12 230 Folate 6.6 With associated anemia probably from malabsorption. He received 1 dose of IV Ferrlecit on 01/22/2024.. I have also been supplementing his B12and folic acid. I have started him on oral iron. (4) Hyperglycemia: Impression: A1c 6.7. No antidiabetic meds at home Add SSI, Lantus. He has been refusing blood sugar checks Hyperglycemia complicated by steroid course. He will need primary care followup for further discussion and consideration of outpatient treatment for DM on discharge. ALLERGIES Allergies Allergy/AdvReac Type Severity Reaction Status Date / Time No Known Drug Allergies Allergy Verified 01/18/24 10:20 MEDICATIONS Ambulatory Orders Medication Instructions Recorded Confirmed pregabalin 200 mg capsule (Lyrica) 200 mg ORAL TID pain 09/10/21 01/19/24 acetaminophen 500 mg tablet 1,000 mg PO Q8HR PRN Pain 03/05/22 01/19/24 PHYSICAL EXAM AT DISCHARGE General Appearance: positive No acute distress and Alert Eyes Bilateral: positive Normal inspection ENT: positive ENT inspection nml Neck: positive Nml inspection Respiratory: positive No respiratory distress and Breath sounds nml Cardiovascular: positive Regular rate & rhythm Peripheral Pulses: positive 2+ Abdomen: positive No distention Skin: positive Color nml Extremities: positive No pedal edema Neurologic/Psychiatric: positive Oriented x3, CN's nml (2-12), Mood/affect nml, Sensory loss (right foot, dorsal and plantar aspect digits 2-4,and onto dorsal and plantar foot) and Other (His exam remains unchanged He has 4 out of 5 strength in knee flexion and extension dorsiflexion and plantarflexion on the right side otherwise he has 5 out of 5 strength in his lower extremities. He has altered sensation on both plantar and dorsal aspects of his right foot) Reflexes: Ankle (R): 2+ and Ankle (L): 2+ LABS 01/25/24 05:46 01/25/24 05:46 FOLLOW UP Follow Up: as directed on completion of care at [facility]. this patient definitely needs counseling regarding BMI reduction and consideration of treatment for his elevated A1C. TIME SPENT Time Spent in Discharge (Minutes): 45 Discharge Plan Discharge Patient Disposition: 02 Transfer Acute Care Hosp Condition: Good Prescriptions: No Action pregabalin [Lyrica] 200 MG capsule 200 mg ORAL TID acetaminophen 500 MG tablet 1,000 mg PO Q8HR PRN (Reason: Pain) Print Language: Nepali"
== END 2024-01-25 16:16 | disposition short-term general hospital (02) | DRG 552 ==
LOC: ED 09:56 → MS2 21:25
PROVIDERS: ADMIT Internal Medicine; ATTEND Internal Medicine
DX: M54.6 Pain in thoracic spine; M47.816 Spondylosis without myelopathy or radiculopathy, lumbar region; Y92.512 Supermarket, store or market as the place of occurrence of the external cause; R33.9 Retention of urine, unspecified; M62.830 Muscle spasm of back; R32 Unspecified urinary incontinence; W01.0XXA Fall on same level from slipping, tripping and stumbling without subsequent striking against object, initial encounter; M79.604 Pain in right leg; G89.29 Other chronic pain; M47.814 Spondylosis without myelopathy or radiculopathy, thoracic region; R20.0 Anesthesia of skin; E66.9 Obesity, unspecified; Z98.84 Bariatric surgery status; Z98.0 Intestinal bypass and anastomosis status; R73.9 Hyperglycemia, unspecified; D50.9 Iron deficiency anemia, unspecified; M54.2 Cervicalgia; Y93.01 Activity, walking, marching and hiking; Z98.890 Other specified postprocedural states; Z68.36 Body mass index [BMI] 36.0-36.9, adult; M54.50 Low back pain, unspecified